=== PATIENT | female | born 1930 | race Caucasian/White ===

== ENCOUNTER 2017-04-26 13:48 | Emergency (ER) | payer OTHER, MEDICARE ==
[2017-04-26 14:01] VITALS: BMI 13.8
[2017-04-26 14:59] LABS: BASOPHIL 0.7 % (0-2.0); MCH 29.4 pg (25.7-33.7); MCHC 33.4 g/dl (32.0-36.0); MEAN CELL VOLUME 88.2 fl (80-96); MEAN PLT VOLUME 8.5 fl (7.5-11.1); NEUTROPHILS 59.6 % (42.8-82.8); PLATELET COUNT 243 K/MM3 (134-434); RDW 14.9 % (11.6-15.6); WHITE BLOOD COUNT 8.9 K/mm3 (4.0-10.0)
--- NOTE | 2017-04-26 15:17 | PDOC ---
History of Present Illness - General Chief Complaint: Shortness of Breath Stated Complaint: SOB Time Seen by Provider: 04/26/17 14:34 History Source: Patient Exam Limitations: No Limitations - History of Present Illness Initial Comments: 04/26/17 15:28 86 year old female with history of Parkinson's and dementia brought in by sister for evaluation of increased dyskinesia and complaining of mild dysphasia. Sister said patient had no change in her levodopa and has had no fever, change in appetite, or change in activity. Sr. also denies any difficulty breathing vomiting or complaints of chest pain. As per sister patient is incontinent but has had no change in urine pattern or foul odor. Timing/Duration: getting worse Severity: moderate Associated Symptoms: reports: other Past History - Travel Traveled outside of the country in the last 30 days: No - Past Medical History Allergies/Adverse Reactions: Allergies Allergy/AdvReac Type Severity Reaction Status Date / Time No Known Drug Allergies Allergy Verified 04/26/17 13:57 Home Medications: Ambulatory Orders Divalproex [Depakote -] 250 mg PO BID 08/18/15 Levothyroxine [Synthroid -] 50 mcg PO DAILY 08/18/15 Risperidone 0.5 mg PO HS 08/18/15 Sertraline HCl [Zoloft -] 100 mg PO DAILY 08/18/15 Carbidopa/Levodopa [Carbidopa-Levo 25-100 Tab] 2 each PO TID 10/31/15 Furosemide [Lasix -] 20 mg PO DAILY 10/31/15 Docusate Sodium [Colace -] 100 mg PO BID PRN #0 capsule 11/07/15 Lactobacillus Acidophilus [Bacid -] 1 tab PO BID #100 tab 11/07/15 Anemia: Yes Cardiac Disorders: Yes CHF: Yes Dementia: Yes GI Disorders: Yes Disorders: Yes (urinary incontinence) HTN: Yes Psychiatric Problems: Yes Suicide Attempt (Hx): No Seizures: Yes (MANIC DEPRESSION) Thyroid Disease: Yes - Surgical History Abdominal Surgery: Yes (PT DOESNT REMEMBER) Cholecystectomy: Yes - Immunization History Immunization Up to Date: Yes - Psycho/Social/Smoking Cessation Hx Anxiety: Yes Suicidal Ideation: No Smoking Status: No Smoking History: Former smoker Have you smoked in the past 12 months: No Number of Cigarettes Smoked Daily: 0 If you are a former smoker, when did you quit?: Over 40 years ago Information on smoking cessation initiated: No Hx Alcohol Use: No Drug/Substance Use Hx: No Substance Use Type: None Hx Substance Use Treatment: No Patient Lives Alone: No Lives with/in: sister Review of Systems - Review of Systems Able to Perform ROS?: Yes Constitutional: No: Symptoms Reported HEENTM: No: Symptoms Reported Respiratory: No: Symptoms reported Cardiac (ROS): No: Symptoms Reported ABD/GI: No: Symptoms Reported : No: Symptoms Reported Musculoskeletal: No: Symptoms Reported Integumentary: No: Symptoms Reported Neurological: No: Symptoms reported Psychiatric: Yes: Other Hematologic/Lymphatic: No: Symptoms Reported *Physical Exam - Vital Signs Last Vital Signs Temp Pulse Resp BP Pulse Ox 97.4 F L 60 19 107/43 96 04/26/17 13:58 04/26/17 13:58 04/26/17 13:58 04/26/17 13:58 04/26/17 13:58 - Physical Exam General Appearance: Yes: Nourished, Appropriately Dressed. No: Apparent Distress HEENT: positive: EOMI, CHRISTI, TMs Normal. negative: Pharynx Normal (dry) Neck: positive: Supple. negative: Tender, Decreased range of motion Respiratory/Chest: positive: Lungs Clear, Normal Breath Sounds. negative: Chest Tender, Respiratory Distress, Accessory Muscle Use Cardiovascular: positive: Regular Rhythm, Regular Rate. negative: Murmur Gastrointestinal/Abdominal: positive: Soft. negative: Tenderness Extremity: positive: Normal Capillary Refill, Normal Inspection, Normal Range of Motion Integumentary: positive: Bruising (to right temporal and auricular region. Pinna with small hematoma. No drainage or open lesions) Neurologic: positive: Alert, Motor Strength 5/5 (moving all extremeties actively ) Heart Score/ECG Review - History History: Slightly suspicious - Electrocardiogram EKG: Normal - Age Age: >/= 65 - Risk Factors Based on the list above the patient has:: No risk factors known - Troponin Troponin: </= normal limit - Score Heart Score - Total: 2 - ECG Intrepretation Rhythm: Regular Rhythm (rate 71 with left atrial enlargment Left ventricular hypertrophy is noted) ED Treatment Course - LABORATORY CBC & Chemistry Diagram: 04/26/17 14:40 04/26/17 14:40 - RADIOLOGY Radiology Studies Ordered: Category Date Time Status CERVICAL SPINE CT W/O CONTR [CT] Stat CT Scan 04/26/17 15:[address] WITHOUT CONTRAST [CT] Stat CT Scan 04/26/17 15:10 Ordered CHEST X-RAY PORTABLE* [RAD] Stat Radiology 04/26/17 14:40 Taken Medical Decision Making - Medical Decision Making 04/26/17 15:46 Patient brought in by sister for evaluation of increased dyskinesia, complaints of difficulty swallowing, and bruising to the right side of her head. Patient fell 3 days ago but did not seek medical attention. Patient has no complaints of headache, difficulty hearing, neck pain, dizziness or visual changes. Patient on exam was able to verbalize her needs and was oriented 3. Patient during exam with noted dyskinesia and erratic body language. Patient was ordered for labs, urine, chest x-ray, head and neck CT secondary to right facial injury 04/26/17 16:[address] shows generalized volume loss with moderate to marked ventricular dilatation moderate periventricular chronic microvascular ischemic changes. Which was compared to 2013. No mass lesion, gross acute infarct or intracranial hemorrhage identified. 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 Cervical CT shows no gross fracture or subluxation. Patient will be discharged home with sister as per her request. Patient has no other current concerns at this time. I explained to the sister to increase fluid intake and have patient follow-up with her neurologist 04/26/17 16:34 Laboratory Tests 04/26/17 04/26/17 04/26/17 14:15 14:40 14:40 WBC 8.9 Hgb 12.1 D Hct 36.1 Plt Count 243 D Neutrophils % 59.6 Sodium 140 Potassium 3.9 Chloride 105 Carbon Dioxide 25 Anion Gap 10 BUN 14 Creatinine 0.5 L D Creat Clearance w eGFR > 60 Random Glucose 93 Calcium 8.9 Total Bilirubin 0.5 D AST 17 D Creatine Kinase 72 Troponin I < 0.02 Urine Ketones Trace H Urine Nitrite Negative Ur Leukocyte Esterase Negative *DC/Admit/Observation/Transfer Diagnosis at time of Disposition: Parkinson disease - Discharge Dispostion Disposition: HOME Condition at time of disposition: Good - Referrals Referrals: Donald Banks MD [Primary Care Provider] - - Patient Instructions Printed Discharge Instructions: DI for Parkinson's Disease Additional Instructions: Please continue with her medications previously prescribed. Please follow-up with your neurologist and discuss today's visit. Increase patient's fliud intake also.
[2017-04-26 15:23] LABS: ALBUMIN 3.2 g/dl (3.4-5.0); ANION GAP 10 (8-16); BILIRUBIN,TOTAL 0.5 mg/dL (0.2-1.0); CALCIUM 8.9 mg/dL (8.5-10.1); CO2 25 mmol/L (21-32); CREATININE 0.5 mg/dL (0.55-1.02); GLUCOSE,RANDOM 93 mg/dL (74-106); SGPT/ALT 7 U/L (12-78)
--- NOTE | 2017-04-26 15:24 | PDOC ---
*Physical Exam - Vital Signs Last Vital Signs Temp Pulse Resp BP Pulse Ox 97.4 F L 60 19 107/43 96 04/26/17 13:58 04/26/17 13:58 04/26/17 13:58 04/26/17 13:58 04/26/17 13:58 ED Treatment Course - LABORATORY CBC & Chemistry Diagram: 04/26/17 14:40 04/26/17 14:40 - ADDITIONAL ORDERS Additional order review: 04/26/17 14:40 RBC 4.10 MCV 88.2 MCHC 33.4 RDW 14.9 MPV 8.5 D Neutrophils % 59.6 Lymphocytes % 29.6 D Monocytes % 7.1 Eosinophils % 3.0 D Basophils % 0.7 Medical Decision Making - Medical Decision Making 04/26/17 15:24 Pt seen by Midlevel Provider under my direct supervision Ancillary studies reviewed I agree with plan as outlined by Midlevel Provider *DC/Admit/Observation/Transfer Diagnosis at time of Disposition: Parkinson disease - Discharge Dispostion Disposition: HOME Condition at time of disposition: Good - Referrals Referrals: Donald Banks MD [Primary Care Provider] - - Patient Instructions Printed Discharge Instructions: DI for Parkinson's Disease Additional Instructions: Please continue with her medications previously prescribed. Please follow-up with your neurologist and discuss today's visit. Increase patient's fliud intake also.
[2017-04-26 15:25] LABS: URINE APPEARANCE CLEAR; URINE BILIRUBIN NEGATIVE (NEGATIVE); URINE BLOOD NEGATIVE (NEGATIVE); URINE COLOR YELLOW; URINE GLUCOSE (UA) NEGATIVE (NEGATIVE); URINE KETONE TRACE (NEGATIVE); URINE LEUK ESTERASE NEGATIVE (NEGATIVE); URINE NITRITE NEGATIVE (NEGATIVE); URINE PROTEIN NEGATIVE (NEGATIVE); URINE UROBILINOGEN NEGATIVE mg/dL (0.2-1.0)
[2017-04-26 15:25] LABS: ALK PHOS 85 U/L (45-117); TROPONIN I < 0.02 ng/ml (0.00-0.05)
[2017-04-26 15:26] LABS: CPK 72 IU/L (26-192); SGOT/AST 17 U/L (15-37)
[2017-04-26 16:45] VITALS: BP 124/80; PULSE 81; TEMP 98.6
--- NOTE | 2017-04-28 21:48 | EKG ---
Test Reason : Blood Pressure : / mmHG Vent. Rate : 071 BPM Atrial Rate : 071 BPM P-R Int : 170 ms QRS Dur : 090 ms QT Int : 424 ms P-R-T Axes : 021 -23 003 degrees QTc Int : 460 ms NORMAL SINUS RHYTHM POSSIBLE LEFT ATRIAL ENLARGEMENT RSR' OR QR PATTERN IN V1 SUGGESTS RIGHT VENTRICULAR CONDUCTION DELAY LEFT VENTRICULAR HYPERTROPHY ABNORMAL ECG WHEN COMPARED WITH ECG OF 04-NOV-2015 10:48, VENT. RATE HAS DECREASED BY 50 BPM RSR' PATTERN IN V1 IS NOW PRESENT Confirmed by YANELIS SINGH, VÍCTOR ([id number]) on 04/28/2017 9:48:19 PM Referred By: Confirmed By:VÍCTOR HILARIO MD
== END 2017-04-26 16:45 | disposition home or self-care (01) ==
LOC: JER 13:48
DX: G20 Parkinson's disease (principal); F02.80 Dementia in other diseases classified elsewhere, unspecified severity, without behavioral disturbance, psychotic disturbance, mood disturbance, and anxiety; I25.10 Atherosclerotic heart disease of native coronary artery without angina pectoris; I11.0 Hypertensive heart disease with heart failure; Z87.891 Personal history of nicotine dependence; D64.9 Anemia, unspecified; E03.9 Hypothyroidism, unspecified; R32 Unspecified urinary incontinence
CPT/HCPCS: 36415; 70450-TC; 71010-TC; 72125-TC; 80053; 81003; 84484; 85025; 87086; 93005; 93010; 99283-25

== ENCOUNTER 2017-07-26 13:25 | Inpatient (IN) | payer OTHER, MEDICARE ==
--- NOTE | 2017-07-26 14:25 | PDOC ---
History of Present Illness - General Chief Complaint: Rectal Bleed Stated Complaint: RECTAL BLEED Time Seen by Provider: 07/26/17 13:47 History Source: Patient Exam Limitations: No Limitations - History of Present Illness Initial Comments: This is an 86 YOF with h/o Parkinson's disease with dementia, chronic diarrhea, and hiatal hernia who presents with family c/o bryce bloody rectal bleeding. The patient herself is unable to provide her relevant medical history or symptoms d/t Parkinson's dementia. The family notes that for the past month she has had bloody-tinged diarrhea, but this morning when they changed her overnight adult diaper she had the diaper full of maroon blood which appeared coagulated. She has been eating no solids over the past month, and drinking only small amounts of fluid, with minimal intake of supplemental Boost drinks. Past History - Past Medical History Allergies/Adverse Reactions: Allergies Allergy/AdvReac Type Severity Reaction Status Date / Time No Known Drug Allergies Allergy Verified 07/26/17 13:41 Home Medications: Ambulatory Orders Divalproex [Depakote -] 250 mg PO BID 08/18/15 Levothyroxine [Synthroid -] 50 mcg PO DAILY 08/18/15 Risperidone 0.5 mg PO HS 08/18/15 Sertraline HCl [Zoloft -] 100 mg PO DAILY 08/18/15 Carbidopa/Levodopa [Carbidopa-Levo 25-100 Tab] 2 each PO TID 10/31/15 Furosemide [Lasix -] 20 mg PO DAILY 10/31/15 Docusate Sodium [Colace -] 100 mg PO BID PRN #0 capsule 11/07/15 Lactobacillus Acidophilus [Bacid -] 1 tab PO BID #100 tab 11/07/15 Anemia: Yes Cardiac Disorders: Yes CHF: Yes Dementia: Yes GI Disorders: Yes Disorders: Yes (urinary incontinence) HTN: Yes Psychiatric Problems: Yes Seizures: Yes (MANIC DEPRESSION) Thyroid Disease: Yes - Surgical History Abdominal Surgery: Yes (PT DOESNT REMEMBER) Cholecystectomy: Yes - Immunization History Immunization Up to Date: Yes - Suicide/Smoking/Psychosocial Hx Smoking Status: No Smoking History: Former smoker Have you smoked in the past 12 months: No Number of Cigarettes Smoked Daily: 0 If you are a former smoker, when did you quit?: Over 40 years ago Hx Alcohol Use: No Drug/Substance Use Hx: No Substance Use Type: None Hx Substance Use Treatment: No Review of Systems - Review of Systems Able to Perform ROS?: No (dementia) *Physical Exam - Physical Exam General Appearance: Yes: Moderate Distress (appears uncomfortable), Cachetic, Thin, Other (malnourished, chronically ill-appearing, very thin elderly woman accompanied at bedside by supportive-appearing family members, patient vocalized mostly moaning sounds but does answer yes/no to some questions) HEENT: positive: EOMI, Other (hearing decreased). negative: Scleral Icterus (R) , Scleral Icterus (L), Nasal Congestion Neck: positive: Trachea midline, Supple. negative: Tender, Rigid Respiratory/Chest: positive: Lungs Clear, Normal Breath Sounds. negative: Respiratory Distress, Crackles, Rhonchi, Stridor, Wheezing Cardiovascular: positive: Regular Rhythm, Regular Rate, Systolic Murmur. negative: Murmur Gastrointestinal/Abdominal: positive: Normal Bowel Sounds, Soft, Other (large bowel movement with melena in diaper). negative: Tender, Organomegaly, Pulsatile Mass, Guarding, Hernia Musculoskeletal: positive: Other (chronic diffuse muscle atrophy but moving all extremities). negative: Decreased Range of Motion, Vertebral Tenderness Extremity: positive: Normal Capillary Refill, Normal Inspection, Normal Range of Motion. negative: Tender, Cyanosis Integumentary: positive: Normal Color, Dry, Warm. negative: Erythema, Rash, Bruising Neurologic: positive: productivity engineer II-XII NML intact, Alert, Motor Strength 5/5. negative: Fully Oriented ED Treatment Course - LABORATORY CBC & Chemistry Diagram: 07/28/17 05:20 07/28/17 05:20 Medical Decision Making - Medical Decision Making 86 YOF with h/o Parkinson's with dementia and chronic diarrhea p/w rectal bleed. Also failure to thrive picture over the past 3-4 weeks with decreased PO intake. No focal area of tenderness on exam but apparent discomfort. Meets sepsis criteria and sepsis order set is initiated with basic labs, lactate , BCx, Mohr, UA, etc. Soft pressures; 1 liter IVF bolus given with improvement in skin tinting. Initial rectal temp is 94.7 and barehugger is donned with significant relief of patient's apparent discomfort. Rectal temp monitor placed for continuous monitoring. Vanc+Zosyn given for empiric coverage. Second 1 liter bolus warmed NS given PIV. 07/26/17 16:16 Significant lactic acidosis with pH 7.20 on ABG and lactate 10. 07/26/17 17:[address] Hansen's office (admits for Dr. Banks); message sent and awaiting call back. Spoke with Dr. Zaragoza who agrees with plan for admission with ICU consulting. 07/26/17 18:[address] Hansen's office on-call (Dr. Arroyo). 07/26/17 19:00 Minoo Cueva calls for patient's PCP group, requests hospitalist admission and she will see Pt in the AM. Microblogged [facility] to request admission. Patient's care signed out to Dr. Hair at end of my shift. *DC/Admit/Observation/Transfer Diagnosis at time of Disposition: UTI (urinary tract infection) Qualifiers: Urinary tract infection type: acute cystitis Hematuria presence: without hematuria Qualified Code(s): N30.00 - Acute cystitis without hematuria Sepsis Qualifiers: Sepsis type: sepsis due to unspecified organism Qualified Code(s): A41.9 - Sepsis, unspecified organism - Referrals - Patient Instructions - Post Discharge Activity
[2017-07-26] MEDS ORDERED: SODIUM CHLORIDE 1,000 ML IV STA (14:26)
[2017-07-26] MEDS ORDERED: SODIUM CHLORIDE 0.9% 1000 ML INFUS.BAG IV PRN (14:26)
--- NOTE | 2017-07-26 14:28 | PDOC ---
Attending Attestation - Resident Resident Name: KiannaJohnna - ED Attending Attestation I have performed the following: I have examined & evaluated the patient, The case was reviewed & discussed with the resident, I agree w/resident's findings & plan - HPI HPI: 07/26/17 14:25 86-year-old female with Parkinson's and chronic diarrhea presents with progressive bloody diarrhea today. She appears uncomfortable but is unable to express any specific pain. - Physicial Exam PE: 07/26/17 14:26 Patient appears acutely ill with tachypnea and a blood pressure of 98/83. She is not answering questions coherently, but she does attempt to communicate. She does not express any specific abdominal pain. Lungs are clear. Heart is regular rhythm. Abdomen is soft with mild fullness in the suprapubic region. There is no guarding and no rebound tenderness. Extremities are dry with skin tenting. - Critical Care Time Total Critical Care Time: 40 Critical Care Statement: The care of this patient involved high complexity decision making to prevent further life threatening deterioration of the patient 's condition and/or to evaluate & treat vital organ system(s) failure or risk of failure. - Medical Decision Making 07/26/17 14:27 Differential diagnosis includes sepsis of unknown source, possibly intra- abdominal. Other considerations include acute ischemic bowel, although patient does not appear to be expressing specific abdominal pain. Full workup including cultures, lactate, CT scan ordered. IV fluid bolus ordered. Further plans pending initial results.
[2017-07-26] MEDS ORDERED: VANCOMYCIN 1 GRAM (PRE-DOCKED) 1,000 MG/250 ML BAG IVPB ONE ×2 (14:43→15:15)
[2017-07-26] MEDS ORDERED: PIPERACILLIN/TAZOB 3.375 GM/50 ML PRE-DOCKED IVPB ONE (14:43)
[2017-07-26 14:59] LABS: VENOUS BLOOD GAS HCO3 17.6 meq/L (19-25); VENOUS PH 7.2 (7.32-7.42)
[2017-07-26 15:02] LABS: MCH 27.3 pg (25.7-33.7); MCHC 31.5 g/dl (32.0-36.0); MEAN CELL VOLUME 86.6 fl (80-96); MEAN PLT VOLUME 10.1 fl (7.5-11.1); RDW 16.1 % (11.6-15.6)
[2017-07-26] MEDS ORDERED: PIPERACILLIN/TAZOB 3.375 GM 3.375 GM/50 ML BAG IVPB ONE (15:15)
[2017-07-26 15:16] LABS: URINE APPEARANCE TURBID; URINE BILIRUBIN NEGATIVE (NEGATIVE); URINE BLOOD 1+ (NEGATIVE); URINE COLOR YELLOW; URINE GLUCOSE (UA) NEGATIVE (NEGATIVE); URINE KETONE NEGATIVE (NEGATIVE); URINE NITRITE NEGATIVE (NEGATIVE); URINE UROBILINOGEN NEGATIVE mg/dL (0.2-1.0)
[2017-07-26 15:26] LABS: ALBUMIN 2.5 g/dl (3.4-5.0); ANION GAP 25 (8-16); BILIRUBIN,TOTAL 0.7 mg/dL (0.2-1.0); CO2 20 mmol/L (21-32); CREATININE 2.9 mg/dL (0.55-1.02); GLUCOSE,RANDOM 152 mg/dL (74-106); SGOT/AST 23 U/L (15-37); SGPT/ALT 8 U/L (12-78); TOT PROT 6.1 g/dl (6.4-8.2)
[2017-07-26 15:29] LABS: ALK PHOS 144 U/L (45-117); CPK 53 IU/L (26-192); TROPONIN I 0.03 ng/ml (0.00-0.05)
[2017-07-26 15:45] LABS: INR 1.45 (0.82-1.09); PROTHROMBIN TIME (PATIENT) 16.4 SEC (9.98-11.88)
[2017-07-26 15:49] LABS: ARTERIAL BLD GAS O2 SATURATION 99.3 % (90-98.9); ARTERIAL BLOOD GAS BASE EXCESS -7.5 meq/l (-2-2); ARTERIAL BLOOD GAS HCO3 16.2 meq/L (22-26); ARTERIAL BLOOD GAS pH 7.37 (7.35-7.45)
[2017-07-26 15:50] LABS: ALLENS TEST POSITIVE; ART PUNCT SITE RIGHT RADIAL; PT. ON O2? YES; TYPE OF O2 NASAL O2 5 L
[2017-07-26] MEDS ORDERED: SODIUM CHLORIDE 0.9% 1000 ML INFUS.BAG IV ONE (15:59)
[2017-07-26 16:03] LABS: URINE PROTEIN 1+ (NEGATIVE)
[2017-07-26 16:16] LABS: URINE BACTERIA MANY /hpf (NONE SEEN); URINE HYALINE CAST 50 /lpf; URINE RBC 53 /hpf (0-3); URINE WBC 967 /hpf (3-5)
[2017-07-26] MEDS ORDERED: POTASSIUM CHLORIDE 20 MEQ PREMIX IVPB 100 ML IVPB ONE (16:37)
[2017-07-26] MEDS ORDERED: KCL 10 MEQ IVPB 20 MEQ/200 ML INFUS.BAG IVPB ONE (16:47)
--- NOTE | 2017-07-26 19:25 | PDOC ---
*Physical Exam - Vital Signs Last Vital Signs Temp Pulse Resp BP Pulse Ox 98.1 F 94 H 36 H 90/54 100 07/26/17 18:50 07/26/17 18:50 07/26/17 18:50 07/26/17 18:50 07/26/17 18:50 - Physical Exam Comments: 07/26/17 19:43 GENERAL: Awake, alert, and fully oriented, in no acute distress HEAD: No signs of trauma, normocephalic, atraumatic EYES: PERRLA, EOMI, sclera anicteric, conjunctiva clear ENT: Hearing grossly normal, nares patent, oropharynx clear without exudates. Moist mucosa NECK: Normal ROM, supple, no JVD, or masses LUNGS: No distress, speaks full sentences, clear to auscultation bilaterally HEART: Regular rate and rhythm, normal S1 and S2, no murmurs, rubs or gallops, peripheral pulses normal and equal bilaterally. ABDOMEN: Soft, nontender, normoactive bowel sounds. No guarding, no rebound. No masses EXTREMITIES : Normal inspection, Normal range of motion, no edema. No clubbing or cyanosis. SKIN: Warm, Dry, normal turgor, no rashes or lesions noted. ED Treatment Course - LABORATORY CBC & Chemistry Diagram: 07/26/17 14:50 07/26/17 14:50 - ADDITIONAL ORDERS Additional order review: Laboratory Results 07/26/17 07/26/17 07/26/17 17:22 15:32 14:50 PT with INR INR PTT (Actin FS) Puncture Site Right radial ABG pH 7.37 ABG pCO2 at Pt Temp 28.6 L ABG pO2 at Pt Temp 205.0 H* ABG HCO3 16.2 L ABG O2 Sat (Measured) 99.3 H ABG O2 Content 17.2 ABG Base Excess -7.5 L Ross Test Positive VBG pH POC VBG pCO2 POC VBG pO2 Mixed VBG HCO3 O2 Delivery Device Nasal o2 5 l Oxygen Flow Rate Yes Sodium Potassium Chloride Carbon Dioxide Anion Gap BUN Creatinine Creat Clearance w eGFR Random Glucose Lactic Acid 3.0 H* Calcium Total Bilirubin AST ALT Alkaline Phosphatase Creatine Kinase Troponin I B-Natriuretic Peptide Cancelled Total Protein Albumin Urine Color Urine Appearance Urine pH Ur Specific [place] Urine Protein Urine Glucose (UA) Urine Ketones Urine Blood Urine Nitrite Urine Bilirubin Urine Urobilinogen Urine WBC (Auto) Urine RBC (Auto) Urine Bacteria Hyaline Casts Blood Type Antibody Screen 07/26/17 07/26/17 07/26/17 14:50 14:50 14:50 PT with INR INR PTT (Actin FS) Puncture Site ABG pH ABG pCO2 at Pt Temp ABG pO2 at Pt Temp ABG HCO3 ABG O2 Sat (Measured) ABG O2 Content ABG Base Excess Ross Test VBG pH POC VBG pCO2 POC VBG pO2 Mixed VBG HCO3 O2 Delivery Device Oxygen Flow Rate Sodium 133 L Potassium 2.7 L* D Chloride 88 L D Carbon Dioxide 20 L Anion Gap 25 H BUN 91 H D Creatinine 2.9 H D Creat Clearance w eGFR 15.39 Random Glucose 152 H D Lactic Acid 10.0 H* Calcium 10.0 Total Bilirubin 0.7 D AST 23 D ALT 8 L Alkaline Phosphatase 144 H D Creatine Kinase 53 Troponin I 0.03 B-Natriuretic Peptide 7491.96 H Total Protein 6.1 L Albumin 2.5 L D Urine Color Urine Appearance Urine pH Ur Specific [place] Urine Protein Urine Glucose (UA) Urine Ketones Urine Blood Urine Nitrite Urine Bilirubin Urine Urobilinogen Urine WBC (Auto) Urine RBC (Auto) Urine Bacteria Hyaline Casts Blood Type A POSITIVE Antibody Screen Negative 07/26/17 07/26/17 07/26/17 14:50 14:26 14:26 PT with INR 16.40 H INR 1.45 H PTT (Actin FS) 44.0 H Puncture Site ABG pH ABG pCO2 at Pt Temp ABG pO2 at Pt Temp ABG HCO3 ABG O2 Sat (Measured) ABG O2 Content ABG Base Excess Ross Test VBG pH 7.20 L* POC VBG pCO2 46.7 POC VBG pO2 39.9 Mixed VBG HCO3 17.6 L O2 Delivery Device Oxygen Flow Rate Sodium Potassium Chloride Carbon Dioxide Anion Gap BUN Creatinine Creat Clearance w eGFR Random Glucose Lactic Acid Calcium Total Bilirubin AST ALT Alkaline Phosphatase Creatine Kinase Troponin I B-Natriuretic Peptide Total Protein Albumin Urine Color Yellow Urine Appearance Turbid Urine pH 5.0 Ur Specific [place] 1.013 Urine Protein 1+ H Urine Glucose (UA) Negative Urine Ketones Negative Urine Blood 1+ H Urine Nitrite Negative Urine Bilirubin Negative Urine Urobilinogen Negative Urine WBC (Auto) 967 Urine RBC (Auto) 53 Urine Bacteria Many Hyaline Casts 50 Blood Type Antibody Screen 07/26/17 14:50 RBC 5.53 H D MCV 86.6 MCHC 31.5 L RDW 16.1 H MPV 10.1 D Neutrophils % No Result Required. Lymphocytes % No Result Required. - Medications Given in the ED: ED Medications Discontinued Medications Generic Name Dose Route Start Last Admin Trade Name Freq PRN Reason Stop Dose Admin Sodium Chloride 1,000 mls @ 1,000 mls/hr 07/26/17 14:26 07/26/17 14:26 Normal Saline - IV 07/26/17 15:25 1,000 mls/hr ASDIR STA Administration Piperacillin Sod/Tazobactam Sod 3.375 gm 07/26/17 14:43 07/26/17 15:10 Zosyn 3.375gm Ivpb (Pre-Docked) IVPB 07/26/17 14:44 3.375 gm ONCE ONE Administration Potassium Chloride 20 meq 07/26/17 16:37 07/26/17 16:50 Potassium Chloride 20 Meq Premix Ivpb - IVPB 07/26/17 16:38 20 meq ONCE ONE Administration Sodium Chloride 1,000 ml 07/26/17 15:59 07/26/17 15:45 Normal Saline - IV 07/26/17 16:00 1,000 ml ONCE ONE Administration Vancomycin HCl 1,000 mg 07/26/17 14:43 07/26/17 15:50 Vancomycin (Pre-Docked) IVPB 07/26/17 14:44 1,000 mg ONCE ONE Administration Protocol Medical Decision Making - Medical Decision Making 07/26/17 19:[address] De La Cruz. 86 yo F with h/o Parkinson's dementia, and chronic diarrhea who arrives with blood per rectum and failure to thrive for the past 3-4 weeks. No apparent physical exam findings, but pt. hypotensive with SBP~70's on arrival and meets sepsis criteria with tachypnea and leukocytosis~51.0. Patient is s/p 4 Liters of fluid with SBP 90's. Initial rectal temp 94.7 and barehugger is donned with significant relief of patient's apparent discomfort.Rectal temp monitor placed for continuous monitoring. Vanc and Zosyn given for empiric coverage. ED course: ICU admision *DC/Admit/Observation/Transfer Diagnosis at time of Disposition: UTI (urinary tract infection) Qualifiers: Urinary tract infection type: acute cystitis Hematuria presence: without hematuria Qualified Code(s): N30.00 - Acute cystitis without hematuria Sepsis Qualifiers: Sepsis type: sepsis due to unspecified organism Qualified Code(s): A41.9 - Sepsis, unspecified organism - Discharge Dispostion Admit: Yes - Referrals Referrals: Donald Banks MD [Primary Care Provider] - - Patient Instructions - Post Discharge Activity
--- NOTE | 2017-07-26 20:14 | HP ---
CHIEF COMPLAINT: Blood in stool PCP: Donald Banks MD Source: Family, prior notes. Pt with significant baseline dementia. HISTORY OF PRESENT ILLNESS: 86 yo woman w/ pmh of CHF (diastolic), CAD, HTN, hypothyroidism and chronic intermittent diarrhea for prior two years, who presents with suspect hematochezia (maroon-colored stools) by family this AM found in her adult diapers and FTT for last month. Pt w/ baseline dementia/parkinson's suffering from increased, persistent diarrhea for past 6 weeks, with intermittent hematochezia/melena in stools over past month. Family endorses consistently poor feeding, decreased fluid intake over this period as well. No recent travel or abx use. Family denies any fever/chills, cough/sob, CP, palpitations, rashes , dysuria, constipation. She has not received work-up for this chronic diarrhea , but was scheduled for an outpt gastroenterology visit next week, given the worsening of symptoms. She is not currently on any anticoagulation. No recent hospitalizations. ER course was notable for: (1) Tachypnea (low 30s), Hypotensive (low of 70/48), hypothermic 94.9 on presentation (2) 4 L NS volume resuscitation. MAPs in low 60s after. (3) WBC 51, Lactate 10 -> 3.0 on admission (4) BNP 7400~ (5) K 2.7, BUN/Cr 91/2.9 (6) Vanc/Zosyn given Recent Travel: None PAST MEDICAL HISTORY: Hypothyroidism Parkinson's/dementia CAD HTN CHF (Diastolic) Seizure disorder Chronic Diarrhea Hiatal Hernia PAST SURGICAL HISTORY: Cholecystectomy Unspecified abdominal surgery Social History: Smoking: former smoker, 40 years ago Alcohol: Denies Drugs: No drug use Lives with sister. Receives care from family. Family History: Allergies No Known Drug Allergies Allergy (Verified 07/26/17 13:41) HOME MEDICATIONS: Home Medications Medication Instructions Recorded Divalproex [Depakote -] 250 mg PO BID 08/18/15 Levothyroxine [Synthroid -] 50 mcg PO DAILY 08/18/15 Risperidone 0.5 mg PO HS 08/18/15 Sertraline HCl [Zoloft -] 100 mg PO DAILY 08/18/15 Carbidopa/Levodopa [Carbidopa-Levo 2 each PO TID 02/29/16 25-100 Tab] Furosemide [Lasix -] 20 mg PO DAILY 10/31/15 Docusate Sodium [Colace -] 100 mg PO BID PRN #0 capsule 11/07/15 Lactobacillus Acidophilus [Bacid -] 1 tab PO BID #100 tab 11/07/15 REVIEW OF SYSTEMS CONSTITUTIONAL: Absent: fever, chills, diaphoresis, generalized weakness, malaise, loss of appetite, weight change HEENT: Absent: rhinorrhea, nasal congestion, throat pain, throat swelling, CARDIOVASCULAR: Absent: chest pain, syncope, palpitations, irregular heart rate, peripheral edema RESPIRATORY: Absent: cough, shortness of breath, dyspnea with exertion, orthopnea, wheezing, stridor, hemoptysis GASTROINTESTINAL: diarrhea, hematochezia Absent: abdominal pain, abdominal distension, nausea, vomiting, constipation, melena GENITOURINARY: Absent: dysuria, frequency, urgency, hesitancy, hematuria SKIN: Absent: rash, itching ENDOCRINE: Absent: unexplained weight gain, unexplained weight loss, heat intolerance, cold intolerance NEUROLOGIC: unsteady gait, bladder or bowel incontinence Absent: headache, focal weakness or paresthesias, dizziness, seizure, mental status changes PHYSICAL EXAMINATION Vital Signs - 24 hr 07/26/17 07/26/17 07/26/17 13:25 14:10 14:15 Temperature 94.9 F L Pulse Rate 85 Pulse Rate [ 85 Apical] Respiratory 34 H Rate Blood Pressure 98/51 Blood Pressure 124/65 [Left Arm] O2 Sat by Pulse 94 L 100 96 Oximetry (%) 07/26/17 07/26/17 07/26/17 14:45 15:15 16:03 Temperature 95.5 F L 95.5 F L Pulse Rate Pulse Rate [ 84 83 83 Apical] Respiratory 36 H 34 H 30 H Rate Blood Pressure Blood Pressure 128/68 118/64 103/59 [Left Arm] O2 Sat by Pulse 96 95 100 Oximetry (%) 07/26/17 07/26/17 07/26/17 16:45 17:08 17:31 Temperature 97.2 F L 97.9 F 98.6 F Pulse Rate Pulse Rate [ 86 92 H 95 H Apical] Respiratory 32 H 32 H 34 H Rate Blood Pressure Blood Pressure 70/48 81/54 99/57 [Left Arm] O2 Sat by Pulse 100 98 100 Oximetry (%) 07/26/17 07/26/17 18:00 18:50 Temperature 97.9 F 98.1 F Pulse Rate Pulse Rate [ 96 H 94 H Apical] Respiratory 28 H 36 H Rate Blood Pressure Blood Pressure 99/55 90/54 [Left Arm] O2 Sat by Pulse 100 100 Oximetry (%) GENERAL: Severely cachetic woman, elderly, in moderate distress. Delirious. HEAD: NCAT. Sunken cheeks. EYES: Pupils equal, round and reactive to light, extraocular movements intact, sclera anicteric, conjunctiva clear. No lid lag. EARS, NOSE, THROAT: Ears normal, nares patent, oropharynx clear without exudates. Moist mucous membranes. NECK: No JVD, masses or lymphadenopathy LUNGS: Decreased breath sounds at lung bases. No wheezes and no crackles. No accessory muscle use. HEART: Regular rate and rhythm, normal S1 and S2 without murmur, rub or gallop. ABDOMEN: Tender abdomen to palpation. Suprapubic fullness/mild tenderness to percussion. Non-distended, soft. No organomegaly. UPPER EXTREMITIES: 1+ pulses, warm, moperately-perfused. No cyanosis. No clubbing. No peripheral edema. LOWER EXTREMITIES: 2+ pulses, warm, well-perfused. No calf tenderness. No peripheral edema. NEUROLOGICAL: Delirious. Unable to perform adequate neuro exam. PSYCHIATRIC: Cooperative. Good eye contact. Appropriate mood and affect. SKIN: Poor skin turgor, skin tenting. Warm w/ slightly delayed capillary refill. Laboratory Results - last 24 hr CBC, BMP 07/26/17 14:50 07/26/17 14:50 07/26/17 07/26/17 07/26/17 14:26 14:26 14:50 WBC 51.0 H* D RBC 5.53 H D Hgb 15.1 D Hct 47.8 H D MCV 86.6 MCH 27.3 MCHC 31.5 L RDW 16.1 H Plt Count 309 D MPV 10.1 D Neutrophils % No Result Required. Lymphocytes % No Result Required. PT with INR INR PTT (Actin FS) Puncture Site ABG pH ABG pCO2 at Pt Temp ABG pO2 at Pt Temp ABG HCO3 ABG O2 Sat (Measured) ABG O2 Content ABG Base Excess Ross Test VBG pH 7.20 L* POC VBG pCO2 46.7 POC VBG pO2 39.9 Mixed VBG HCO3 17.6 L O2 Delivery Device Oxygen Flow Rate Sodium Potassium Chloride Carbon Dioxide Anion Gap BUN Creatinine Creat Clearance w eGFR Random Glucose Lactic Acid Calcium Total Bilirubin AST ALT Alkaline Phosphatase Creatine Kinase Troponin I B-Natriuretic Peptide Total Protein Albumin Urine Color Yellow Urine Appearance Turbid Urine pH 5.0 Ur Specific [place] 1.013 Urine Protein 1+ H Urine Glucose (UA) Negative Urine Ketones Negative Urine Blood 1+ H Urine Nitrite Negative Urine Bilirubin Negative Urine Urobilinogen Negative Urine WBC (Auto) 967 Urine RBC (Auto) 53 Urine Bacteria Many Hyaline Casts 50 Blood Type Antibody Screen 07/26/17 07/26/17 07/26/17 14:50 14:50 14:50 WBC RBC Hgb Hct MCV MCH MCHC RDW Plt Count MPV Neutrophils % Lymphocytes % PT with INR 16.40 H INR 1.45 H PTT (Actin FS) 44.0 H Puncture Site ABG pH ABG pCO2 at Pt Temp ABG pO2 at Pt Temp ABG HCO3 ABG O2 Sat (Measured) ABG O2 Content ABG Base Excess Ross Test VBG pH POC VBG pCO2 POC VBG pO2 Mixed VBG HCO3 O2 Delivery Device Oxygen Flow Rate Sodium 133 L Potassium 2.7 L* D Chloride 88 L D Carbon Dioxide 20 L Anion Gap 25 H BUN 91 H D Creatinine 2.9 H D Creat Clearance w eGFR 15.39 Random Glucose 152 H D Lactic Acid 10.0 H* Calcium 10.0 Total Bilirubin 0.7 D AST 23 D ALT 8 L Alkaline Phosphatase 144 H D Creatine Kinase 53 Troponin I 0.03 B-Natriuretic Peptide 7491.96 H Total Protein 6.1 L Albumin 2.5 L D Urine Color Urine Appearance Urine pH Ur Specific [place] Urine Protein Urine Glucose (UA) Urine Ketones Urine Blood Urine Nitrite Urine Bilirubin Urine Urobilinogen Urine WBC (Auto) Urine RBC (Auto) Urine Bacteria Hyaline Casts Blood Type Antibody Screen 07/26/17 07/26/17 07/26/17 14:50 14:50 15:32 WBC RBC Hgb Hct MCV MCH MCHC RDW Plt Count MPV Neutrophils % Lymphocytes % PT with INR INR PTT (Actin FS) Puncture Site Right radial ABG pH 7.37 ABG pCO2 at Pt Temp 28.6 L ABG pO2 at Pt Temp 205.0 H* ABG HCO3 16.2 L ABG O2 Sat (Measured) 99.3 H ABG O2 Content 17.2 ABG Base Excess -7.5 L Ross Test Positive VBG pH POC VBG pCO2 POC VBG pO2 Mixed VBG HCO3 O2 Delivery Device Nasal o2 5 l Oxygen Flow Rate Yes Sodium Potassium Chloride Carbon Dioxide Anion Gap BUN Creatinine Creat Clearance w eGFR Random Glucose Lactic Acid Calcium Total Bilirubin AST ALT Alkaline Phosphatase Creatine Kinase Troponin I B-Natriuretic Peptide Cancelled Total Protein Albumin Urine Color Urine Appearance Urine pH Ur Specific [place] Urine Protein Urine Glucose (UA) Urine Ketones Urine Blood Urine Nitrite Urine Bilirubin Urine Urobilinogen Urine WBC (Auto) Urine RBC (Auto) Urine Bacteria Hyaline Casts Blood Type A POSITIVE Antibody Screen Negative 07/26/17 17:22 WBC RBC Hgb Hct MCV MCH MCHC RDW Plt Count MPV Neutrophils % Lymphocytes % PT with INR INR PTT (Actin FS) Puncture Site ABG pH ABG pCO2 at Pt Temp ABG pO2 at Pt Temp ABG HCO3 ABG O2 Sat (Measured) ABG O2 Content ABG Base Excess Ross Test VBG pH POC VBG pCO2 POC VBG pO2 Mixed VBG HCO3 O2 Delivery Device Oxygen Flow Rate Sodium Potassium Chloride Carbon Dioxide Anion Gap BUN Creatinine Creat Clearance w eGFR Random Glucose Lactic Acid 3.0 H* Calcium Total Bilirubin AST ALT Alkaline Phosphatase Creatine Kinase Troponin I B-Natriuretic Peptide Total Protein Albumin Urine Color Urine Appearance Urine pH Ur Specific [place] Urine Protein Urine Glucose (UA) Urine Ketones Urine Blood Urine Nitrite Urine Bilirubin Urine Urobilinogen Urine WBC (Auto) Urine RBC (Auto) Urine Bacteria Hyaline Casts Blood Type Antibody Screen Urine, Blood cultures pending Recent imaging: CXR 07/26 - No evidence of consolidation, pleural effusion or vascular congestion CT-abdomen pending ASSESSMENT/PLAN: 86 yo woman w/ pmh of CHF (diastolic), CAD, HTN, hypothyroidism and chronic intermittent diarrhea for prior two years, who presents with suspected hematochezia and persistent chronic diarrhea of 6 weeks, found to be hypotensive /hypothermic requiring aggressive fluid resuscitation, along w/ a markedly elevated WBC (51) and lactate of 10. #Sepsis secondary to gastroenteritis vs. UTI - Abdominal/pelvic CT scan - f/u blood cultures, urine cultures - Vanc/zosyn empirically - stool O+P, culture - C diff antigen - Consider gastroenteritis panel (salmonella, shigella etc...) #UTI - Hx of recurrent UTI. Suprapubic tenderness/fullness on exam. UA + 2+ leuk esterase - Monitor for symptoms of dysuria - f/u urine cultures #CHF (diastolic) - BNP 7500~ this admission - ECHO while inpt - f/u w/ outpt cardiology - Continue home Lasix 20mg PO #Hematochezia - - Monitor for melena/hematochezia during diaper changes - Trend H/H. Transfuse at <7 - Stool guiac #Elevated lactate - 10 on admission -> 3.0 -> 3.3 07/26 PM - Trend lactate. F/u AM lactate - Aggresive IVFs for volume resuscitation #Hypokalemia - 2.7 -> 2.6 07/26 PM - Repleted K. F/u BMP in AM. - Daily BMPs #Hypothyroidism - F/u TSH - Consider restarting home levo if TSH elevated #Parkinson's - Continue home cinemet #Depression - Continue home sertraline #Unspecified psych condition - Hold risperdol, depakote for now. Confirm home psych meds with PCP in AM FEN: Fluids: 100cc NS Electrolytes: Daily BMPs, replete electrolytes as needed. Nutrition: NPO Dispo: Admit to ICU for further monitoring. Code status: DNR/DNI Plan discussed with attending, Dr. Yessi Leahy, PGY1 Problem List - Problem (1) Sepsis Code(s): A41.9 - SEPSIS, UNSPECIFIED ORGANISM Qualifiers: Sepsis type: sepsis due to unspecified organism Qualified Code(s): A41.9 - Sepsis, unspecified organism (2) UTI (urinary tract infection) Code(s): N39.0 - URINARY TRACT INFECTION, SITE NOT SPECIFIED Qualifiers: Urinary tract infection type: acute cystitis Hematuria presence: without hematuria Qualified Code(s): N30.00 - Acute cystitis without hematuria (3) Chronic diarrhea Code(s): K52.9 - NONINFECTIVE GASTROENTERITIS AND COLITIS, UNSPECIFIED Visit type - Emergency Visit Emergency Visit: Yes ED Registration Date: 07/26/17 Care time: The patient presented to the Emergency Department on the above date and was hospitalized for further evaluation of their emergent condition. - New Patient This patient is new to me today: Yes Date on this admission: 07/27/17 - Critical Care Critical Care patient: Yes Total Critical Care Time (in minutes): 35 Critical Care Statement: The care of this patient involved high complexity decision making to prevent further life threatening deterioration of the patient 's condition and/or to evaluate & treat vital organ system(s) failure or risk of failure.
[2017-07-26 20:22] LABS: TOTAL CELLS COUNTED 100
[2017-07-26 20:23] LABS: REACTIVE LYMPHOCYTES 2 % (0-80)
[2017-07-26 20:25] LABS: PLATELET COMMENTS SLT PLT CLUMPING; PLATELET ESTIMATE ADEQUATE
[2017-07-26 22:51] VITALS: BMI 15.2
[2017-07-26 22:51] LABS: URINE LEUK ESTERASE 2+ (NEGATIVE)
--- NOTE | 2017-07-26 23:02 | CONSULT ---
Consult - text type - Consultation Consultation Note: Pulm/CCM Pt seen and examined in ICU CC: failure to thrive, sepsis HPI: Ms Waller is an 86 y/o woman with h/o Parkinson's disease/dementia, chronic diarrhea, and hiatal hernia who has been in declining health for some time now admitted for sepsis and hematochezia . Pt is debilitated, had not been extremely poor PO intake and unintentional weight loss. According to family pt has had chronic loose stool but in last 24hr has had blood tinged diarrhea which became bryce maroon blood. She is unable to relate any symptoms or localize any complaint. Family sent pt to ED for evaluation. In ED pt was hypothermic, hypotensive, tachycardic and tachpneic. Labs notable for WBC 51, K 2.7, BUN/Cr 91/2.9, Cl 88, Hco3 20 Lactate 10. UA w/ >180WBC and 2+ LE. She received broad spectrum abx, 2L IVF, and placed on marissa hugger. GOC was discussed with family--> DNR/DNI, no aggressive measure, ok with fluid and antibiotics and other supportive care. Transferred to ICU for further management. Past Medical History [employer] Parkinson's,Seizure Cardio/Vascular CAD,CHF,HTN Gastrointestinal Other Endocrine Hypothyroidism Smoking History Smoking history Former smoker Aproximately how many 0 cigarettes per day If you are a former smoker, Over 40 years ago when did you quit? Alcohol/Substance Use Hx Alcohol Use No History of Substance Use None Social History Usual Living Arrangement With Significant Other History of Recent Travel No CBCD WBC 51.0 K/mm3 (4.0-10.0) H* D 07/26/17 14:50 RBC 5.53 M/mm3 (3.60-5.2) H D 07/26/17 14:50 Hgb 15.1 GM/dL (10.7-15.3) D 07/26/17 14:50 Hct 47.8 % (32.4-45.2) H D 07/26/17 14:50 MCV 86.6 fl (80-96) 07/26/17 14:50 MCHC 31.5 g/dl (32.0-36.0) L 07/26/17 14:50 RDW 16.1 % (11.6-15.6) H 07/26/17 14:50 Plt Count K/MM3 (134-434) 07/26/17 14:50 MPV 10.1 fl (7.5-11.1) D 07/26/17 14:50 CMP Sodium 133 mmol/L (136-145) L 07/26/17 14:50 Potassium 2.7 mmol/L (3.5-5.1) L* D 07/26/17 14:50 Chloride 88 mmol/L (98-107) L D 07/26/17 14:50 Carbon Dioxide 20 mmol/L (21-32) L 07/26/17 14:50 Anion Gap 25 (8-16) H 07/26/17 14:50 BUN 91 mg/dL (7-18) H D 07/26/17 14:50 Creatinine 2.9 mg/dL (0.55-1.02) H D 07/26/17 14:50 Creat Clearance w eGFR 15.39 (>60) 07/26/17 14:50 Calcium 10.0 mg/dL (8.5-10.1) 07/26/17 14:50 Total Bilirubin 0.7 mg/dL (0.2-1.0) D 07/26/17 14:50 AST 23 U/L (15-37) D 07/26/17 14:50 ALT 8 U/L (12-78) L 07/26/17 14:50 Alkaline Phosphatase 144 U/L (45-117) H D 07/26/17 14:50 Total Protein 6.1 g/dl (6.4-8.2) L 07/26/17 14:50 Albumin 2.5 g/dl (3.4-5.0) L D 07/26/17 14:50 Urine Test Results Urine Color Yellow 07/26/17 14:26 Urine Appearance Turbid 07/26/17 14:26 Urine pH 5.0 (5.0-8.0) 07/26/17 14:26 Ur Specific [place] 1.013 (1.001-1.035) 07/26/17 14:26 Urine Protein 1+ (NEGATIVE) H 07/26/17 14:26 Urine Glucose (UA) Negative (NEGATIVE) 07/26/17 14:26 Urine Ketones Negative (NEGATIVE) 07/26/17 14:26 Urine Blood 1+ (NEGATIVE) H 07/26/17 14:26 Urine Nitrite Negative (NEGATIVE) 07/26/17 14:26 Urine Bilirubin Negative (NEGATIVE) 07/26/17 14:26 Ur Leukocyte Esterase 2+ (NEGATIVE) H 07/26/17 14:26 Urine Bacteria Many /hpf (NONE SEEN) 07/26/17 14:26 Home Medications Medication Instructions Recorded Divalproex [Depakote -] 250 mg PO BID 08/18/15 Levothyroxine [Synthroid -] 50 mcg PO DAILY 08/18/15 Risperidone 0.5 mg PO HS 08/18/15 Sertraline HCl [Zoloft -] 100 mg PO DAILY 08/18/15 Carbidopa/Levodopa [Carbidopa-Levo 2 each PO TID 10/31/15 25-100 Tab] Furosemide [Lasix -] 20 mg PO DAILY 10/31/15 Docusate Sodium [Colace -] 100 mg PO BID PRN #0 capsule 11/07/15 Lactobacillus Acidophilus [Bacid -] 1 tab PO BID #100 tab 11/07/15 Active Medications Chlorhexidine Gluconate (Hibiclens For Decolonization -) 1 applic TP HS MISTI Mupirocin (Bactroban Ointment (For Decolonization) -) 1 applic NS BID MISTI Stop: 07/31/17 21:59 Sodium Chloride (Normal Saline -) 1,000 ml IV Q20M PRN PRN Reason: MAP<65mm Hg OR SBP <90 PE: Gen; cachetic, eld woman, in mild distress, calls out with any attemt to examine PULM: clear anterior, no distress CV; irreg, tachy, III/ BUSHRA ABD: soft, ND, hypoactive. BS EXT: no edema, very thin, fail Neuro: agitated, altered, non focal A/ Severe sepsis, AMS (acute on chronic) WILBERT leukocytosis P/ -Pip/Nghia -Vanco -IV fluid -electrolyte repletion (K given in ED) -normal transfusion threshold -report of melonic stool ,cont monitor Meek Sánchez [facility] [id number]
[2017-07-26] MEDS: MUPIROCIN 2% TOPICAL OINTMENT FOR DECOLONIZATION NS SCH (23:06)
[2017-07-26] MEDS: CHLORHEXIDINE GLUCONATE 4% CLEANSER FOR DECOLONIZATION TP SCH (23:06)
--- NOTE | 2017-07-26 23:23 | PN ---
Teaching Attending Note Name of Resident: Isaiah Leahy ATTENDING PHYSICIAN STATEMENT I saw and evaluated the patient. I reviewed the resident's note and discussed the case with the resident. I agree with the resident's findings and plan as documented. SUBJECTIVE: OBJECTIVE: ASSESSMENT AND PLAN: this is an 86 y/o frail women, who presented to the hospital with failure to thrive and worsening mental status. patient family stated that for the past 2 wks the patient hasn't been eating properly, feeling week, and soiling herself. patient has moderate cognitive impairment, ?parkinsons, and hypothyrodisim plan: - admit the patient to the ICU - IVF hydration - check thyroid function - keep the patient NPO - if the thyroid function is decrease then IV levothyroixne - c/w IV antibiotics - repeat CBC - trend lactate until level is < 2.0 - patient is DNR/DNI - speech and swallow assessment for the patient after the patient mental status improves. - urine analysis CT scan of the abdomen
[2017-07-27 00:14] LABS: BASOPHIL 0.2 % (0-2.0); MCH 27.6 pg (25.7-33.7); MCHC 31.9 g/dl (32.0-36.0); MEAN CELL VOLUME 86.7 fl (80-96); NEUTROPHILS 90.5 % (42.8-82.8); PLATELET COUNT 230 K/MM3 (134-434); RDW 16.1 % (11.6-15.6)
[2017-07-27 00:34] LABS: PHOSPHOROUS 2.8 mg/dL (2.5-4.9); WHITE BLOOD COUNT 41.4 K/mm3 (4.0-10.0)
[2017-07-27] MEDS: POTASSIUM CHLORIDE 20 MEQ PREMIX IVPB 100 ML IVPB SCH (06:29)
[2017-07-27 06:34] LABS: MCH 27.8 pg (25.7-33.7); MCHC 32.5 g/dl (32.0-36.0); MEAN CELL VOLUME 85.6 fl (80-96); MEAN PLT VOLUME 10.3 fl (7.5-11.1); PLATELET COUNT 220 K/MM3 (134-434); RDW 16.1 % (11.6-15.6)
[2017-07-27] MEDS: D5-1/2NS+20 MEQ KCL - 20 MEQ/1,000 ML INFUS.BAG IV SCH (06:35)
[2017-07-27 06:43] LABS: ANION GAP 13 (8-16); CALCIUM 7.4 mg/dL (8.5-10.1); CO2 16 mmol/L (21-32); CREATININE 1.6 mg/dL (0.55-1.02); GLUCOSE,RANDOM 101 mg/dL (74-106); MAGNESIUM 1.9 mg/dL (1.8-2.4); PHOSPHOROUS 2.5 mg/dL (2.5-4.9)
[2017-07-27 06:52] LABS: INR 1.36 (0.82-1.09); PROTHROMBIN TIME (PATIENT) 15.4 SEC (9.98-11.88)
[2017-07-27 06:57] LABS: WHITE BLOOD COUNT 39.7 K/mm3 (4.0-10.0)
--- NOTE | 2017-07-27 08:16 | PN ---
Progress Note, Physician Chief Complaint: ID Unable to offer any history NAD Just yells when you attempt to examine her - Current Medication List Current Medications: Active Medications Chlorhexidine Gluconate (Hibiclens For Decolonization -) 1 applic TP HS [facility] Last Admin: 07/26/17 23:06 Dose: 1 applic Potassium Chloride/Dextrose/Sod Cl (D5-1/2ns+20 Meq Kcl -) 20 meq in 1,000 mls @ 83 mls/hr IV ASDIR MISTI Last Admin: 07/27/17 06:35 Dose: 83 mls/hr Mupirocin (Bactroban Ointment (For Decolonization) -) 1 applic NS BID MISTI Stop: 07/31/17 21:59 Last Admin: 07/26/17 23:06 Dose: 1 applic Sodium Chloride (Normal Saline -) 1,000 ml IV Q20M PRN PRN Reason: MAP<65mm Hg OR SBP <90 - Objective Vital Signs: Vital Signs Temperature 98.7 F 07/27/17 06:00 Pulse Rate 97 H 07/27/17 06:00 Respiratory Rate 26 H 07/27/17 06:00 Blood Pressure 95/54 07/27/17 06:00 O2 Sat by Pulse Oximetry (%) 100 07/26/17 22:36 Constitutional: Yes: Thin Neck: Yes: WNL, Supple Cardiovascular: Yes: Regular Rate and Rhythm, Murmur, S1, S2 Respiratory: Yes: WNL, Regular, CTA Bilaterally Gastrointestinal: Yes: Soft. No: Tenderness Edema: No Labs: CBC, BMP 07/27/17 05:05 07/27/17 05:05 INR, PTT INR 1.36 (0.82-1.09) H 07/27/17 05:05 Problem List - Problems (1) Sepsis Code(s): A41.9 - SEPSIS, UNSPECIFIED ORGANISM Qualifiers: Sepsis type: sepsis due to unspecified organism Qualified Code(s): A41.9 - Sepsis, unspecified organism (2) UTI (urinary tract infection) Code(s): N39.0 - URINARY TRACT INFECTION, SITE NOT SPECIFIED Qualifiers: Urinary tract infection type: acute cystitis Hematuria presence: without hematuria Qualified Code(s): N30.00 - Acute cystitis without hematuria (3) Acute renal failure Code(s): N17.9 - ACUTE KIDNEY FAILURE, UNSPECIFIED Qualifiers: Acute renal failure type: unspecified Qualified Code(s): N17.9 - Acute kidney failure, unspecified Assessment/Plan Microbiology 10/31/15 10:45 Urine - Urine Mohr Urine Culture - Final Citrobacter Freundii Complex Enterococcus Faecalis Laboratory Tests 07/26/17 07/26/17 07/26/17 14:26 14:50 15:32 WBC 51.0 H* D Hgb 15.1 D Plt Count Neutrophils % (Manual) 76.0 Band Neutrophils % 6.0 Lymphocytes % (Manual) 10.0 Monocytes % (Manual) 6 INR ABG pH 7.37 ABG pCO2 at Pt Temp 28.6 L ABG pO2 at Pt Temp 205.0 H* Potassium BUN Creatinine Lactic Acid Ur Leukocyte Esterase 2+ H Urine WBC (Auto) 967 07/26/17 07/26/17 07/26/17 23:00 23:30 23:30 WBC Hgb Plt Count 230 Neutrophils % (Manual) Band Neutrophils % Lymphocytes % (Manual) Monocytes % (Manual) INR ABG pH ABG pCO2 at Pt Temp ABG pO2 at Pt Temp Potassium 2.6 L* BUN Creatinine Lactic Acid 3.3 H* Ur Leukocyte Esterase Urine WBC (Auto) 07/27/17 07/27/17 07/27/17 05:05 05:05 05:05 WBC Hgb Plt Count Neutrophils % (Manual) Band Neutrophils % Lymphocytes % (Manual) Monocytes % (Manual) INR 1.36 H ABG pH ABG pCO2 at Pt Temp ABG pO2 at Pt Temp Potassium BUN 68 H D Creatinine 1.6 H D Lactic Acid 2.7 H* Ur Leukocyte Esterase Urine WBC (Auto) Assessment Sepsis syndrome Urinary tract infection Positive blood culture gram pending Rectal bleeding Acute renal failure Plan Obtain vancom level Continue Zosyn 2.25gr q6H IVF Await blood culture final oscarien c/s Philly SINGH
--- NOTE | 2017-07-27 08:53 | CONS ---
DATE OF CONSULTATION: DATE OF DICTATION: 07/27/2017 INFECTIOUS DISEASE CONSULTATION HISTORY OF PRESENT ILLNESS: This is an 86-year-old female with profound dementia, whom I am asked to see for evaluation of sepsis syndrome in the ICU. This 86-year-old female has a history of both Parkinson disease along with dementia, chronic diarrhea, and has been in declining health at the alf. She is admitted now because of hematochezia, poor oral intake and progressive weight loss. The family notes chronic loose stools, but over the last 24 hours she has had blood tinged diarrhea with bryce maroon stools. She is unable to offer any history whatsoever and becomes agitated when moving her to examine her in bed. In the emergency room, she was noted to be hypothermic, hypothyroidism, tachycardic, and tachypneic. Her labs were notable for a white count of 51,000, with a potassium of 2.7, BUN of 91, creatinine of 2.9, lactic acid of 10, and urinalysis with many white cells. Broad-spectrum antibiotics were administered, and I am asked to see her now regarding further antibiotic management. The micro lab reports a preliminary blood culture in an anaerobic bottle coming up as positive, with no identification or Gram stain as yet. PAST MEDICAL HISTORY: Parkinson disease, seizure disorder, dementia, coronary artery disease, CHF, hypertension, hypothyroidism. SOCIAL HISTORY: Former smoker. No history of substance abuse. FAMILY HISTORY: Currently unobtainable. REVIEW OF SYSTEMS: Respiratory: Tachypnea. No cough. Cardiac: No history of chest pain, palpitations or syncope. Gastrointestinal: Hematochezia. Blood-tinged diarrhea. No abdominal pain. Genitourinary: Pyuria on the UA. Unable to obtain any urinary complaints. PHYSICAL EXAMINATION: General: She was a thin, cachectic-appearing, elderly woman in no acute distress. Vital Signs: Temperature now 98.7, pulse 97, blood pressure 95/54, respirations 26. O2 saturation 100% on 2 L nasal cannula. Neck: Supple, without adenopathy. Lungs: Clear to percussion and auscultation. Heart: S1, S2, with a grade 2/6 to 3/6 systolic ejection murmur noted. Abdomen: Positive bowel sounds, although hypoactive, soft, not distended. No organomegaly. No palpable mass. Extremities: No clubbing, cyanosis or edema. DIAGNOSTIC STUDIES: White count 39.7, hemoglobin 12.5, platelets 220. INR 1.36. AB.37, 29, 205, on 2 L nasal cannula. Potassium 2.6, BUN 91, creatinine 2.9, lactic acid 3. Alkaline phosphatase 144, AST 123. Urinalysis with many bacteria, 1000 white cells, 2+ leukocyte esterase, 53 RBCs. Chest x-ray with no acute infiltrate seen. ASSESSMENT: An 86-year-old female with: 1. Sepsis syndrome. 2. Sepsis syndrome secondary to urinary tract infection. 3. History of gastrointestinal bleeding. 4. Leukemoid reaction in part from bleeding as well as sepsis syndrome. 5. Dementia. PLAN: Blood and urine cultures pending. Await final blood culture reports regarding positive blood culture. Obtain a vancomycin level now, without any idea as to the need to continue this at this time. We will give her Zosyn adjusted for creatinine clearance. Stool sent for C diff toxin Critical care time spent 40 mintutes [place] WATERS M.D. [id number] MTDD
[2017-07-27] MEDS ORDERED: PT OWN MED DRAWER 7, Y5N ONE (09:16)
[2017-07-27] MEDS: MUPIROCIN 2% TOPICAL OINTMENT FOR DECOLONIZATION NS SCH ×2 (09:25→22:13)
--- NOTE | 2017-07-27 09:27 | PN ---
Progress Note (short form) - Note Progress Note: Patient seen and examined in the ICU. Confused and lethargic. Mumbles. No pressors. Intake & Output 07/24/17 07/25/17 07/26/17 07/27/17 23:59 23:59 23:59 23:59 Intake Total 200 40 Output Total 540 1100 Balance -340 -1060 Weight 80 lb 11.2 oz 82 lb 1.6 oz Last Vital Signs Temp Pulse Resp BP Pulse Ox 98.7 F 97 H 26 H 104/73 95 07/27/17 06:00 07/27/17 08:00 07/27/17 08:26 07/27/17 08:00 07/27/17 08:26 Active Medications Chlorhexidine Gluconate (Hibiclens For Decolonization -) 1 applic TP HS MISTI Last Admin: 07/26/17 23:06 Dose: 1 applic Potassium Chloride/Dextrose/Sod Cl (D5-1/2ns+20 Meq Kcl -) 20 meq in 1,000 mls @ 83 mls/hr IV ASDIR MISTI Last Admin: 07/27/17 06:35 Dose: 83 mls/hr Piperacillin Sod/Tazobactam (Sod 2.25 gm/ Dextrose) 50 mls @ 100 mls/hr IVPB Q6H-IV MISTI PRN Reason: Protocol Mupirocin (Bactroban Ointment (For Decolonization) -) 1 applic NS BID MISTI Stop: 07/31/17 21:59 Last Admin: 07/26/17 23:06 Dose: 1 applic Sodium Chloride (Normal Saline -) 1,000 ml IV Q20M PRN PRN Reason: MAP<65mm Hg OR SBP <90 PE: Gen; cachetic, elderly woman, NAD PULM: clear anterior, no distress CV; irregular, tachy, III/ BUSHRA ABD: soft, ND, (+) BS EXT: no edema, very thin, fail Neuro: agitated, altered, non focal Laboratory Results - last 24 hr 07/26/17 07/26/17 07/26/17 14:26 14:26 14:50 WBC 51.0 H* D RBC 5.53 H D Hgb 15.1 D Hct 47.8 H D MCV 86.6 MCH 27.3 MCHC 31.5 L RDW 16.1 H Plt Count MPV 10.1 D Total Counted 100 Neutrophils % No Result Required. Neutrophils % (Manual) 76.0 Band Neutrophils % 6.0 Lymphocytes % No Result Required. Lymphocytes % (Manual) 10.0 Monocytes % Monocytes % (Manual) 6 Eosinophils % Basophils % Platelet Estimate Adequate Platelet Comment Slt plt clumping PT with INR INR PTT (Actin FS) Puncture Site ABG pH ABG pCO2 at Pt Temp ABG pO2 at Pt Temp ABG HCO3 ABG O2 Sat (Measured) ABG O2 Content ABG Base Excess Ross Test VBG pH 7.20 L* POC VBG pCO2 46.7 POC VBG pO2 39.9 Mixed VBG HCO3 17.6 L O2 Delivery Device Oxygen Flow Rate Sodium Potassium Chloride Carbon Dioxide Anion Gap BUN Creatinine Creat Clearance w eGFR Random Glucose Lactic Acid Calcium Phosphorus Magnesium Total Bilirubin AST ALT Alkaline Phosphatase Creatine Kinase Troponin I B-Natriuretic Peptide Total Protein Albumin TSH Urine Color Yellow Urine Appearance Turbid Urine pH 5.0 Ur Specific [place] 1.013 Urine Protein 1+ H Urine Glucose (UA) Negative Urine Ketones Negative Urine Blood 1+ H Urine Nitrite Negative Urine Bilirubin Negative Urine Urobilinogen Negative Ur Leukocyte Esterase 2+ H Urine WBC (Auto) 967 Urine RBC (Auto) 53 Urine Bacteria Many Hyaline Casts 50 Random Vancomycin Blood Type Antibody Screen 07/26/17 07/26/17 07/26/17 14:50 14:50 14:50 WBC RBC Hgb Hct MCV MCH MCHC RDW Plt Count MPV Total Counted Neutrophils % Neutrophils % (Manual) Band Neutrophils % Lymphocytes % Lymphocytes % (Manual) Monocytes % Monocytes % (Manual) Eosinophils % Basophils % Platelet Estimate Platelet Comment PT with INR 16.40 H INR 1.45 H PTT (Actin FS) 44.0 H Puncture Site ABG pH ABG pCO2 at Pt Temp ABG pO2 at Pt Temp ABG HCO3 ABG O2 Sat (Measured) ABG O2 Content ABG Base Excess Ross Test VBG pH POC VBG pCO2 POC VBG pO2 Mixed VBG HCO3 O2 Delivery Device Oxygen Flow Rate Sodium 133 L Potassium 2.7 L* D Chloride 88 L D Carbon Dioxide 20 L Anion Gap 25 H BUN 91 H D Creatinine 2.9 H D Creat Clearance w eGFR 15.39 Random Glucose 152 H D Lactic Acid 10.0 H* Calcium 10.0 Phosphorus Magnesium Total Bilirubin 0.7 D AST 23 D ALT 8 L Alkaline Phosphatase 144 H D Creatine Kinase 53 Troponin I 0.03 B-Natriuretic Peptide 7491.96 H Total Protein 6.1 L Albumin 2.5 L D TSH Urine Color Urine Appearance Urine pH Ur Specific [place] Urine Protein Urine Glucose (UA) Urine Ketones Urine Blood Urine Nitrite Urine Bilirubin Urine Urobilinogen Ur Leukocyte Esterase Urine WBC (Auto) Urine RBC (Auto) Urine Bacteria Hyaline Casts Random Vancomycin Blood Type Antibody Screen 07/26/17 07/26/17 07/26/17 14:50 14:50 15:32 WBC RBC Hgb Hct MCV MCH MCHC RDW Plt Count MPV Total Counted Neutrophils % Neutrophils % (Manual) Band Neutrophils % Lymphocytes % Lymphocytes % (Manual) Monocytes % Monocytes % (Manual) Eosinophils % Basophils % Platelet Estimate Platelet Comment PT with INR INR PTT (Actin FS) Puncture Site Right radial ABG pH 7.37 ABG pCO2 at Pt Temp 28.6 L ABG pO2 at Pt Temp 205.0 H* ABG HCO3 16.2 L ABG O2 Sat (Measured) 99.3 H ABG O2 Content 17.2 ABG Base Excess -7.5 L Ross Test Positive VBG pH POC VBG pCO2 POC VBG pO2 Mixed VBG HCO3 O2 Delivery Device Nasal o2 5 l Oxygen Flow Rate Yes Sodium Potassium Chloride Carbon Dioxide Anion Gap BUN Creatinine Creat Clearance w eGFR Random Glucose Lactic Acid Calcium Phosphorus Magnesium Total Bilirubin AST ALT Alkaline Phosphatase Creatine Kinase Troponin I B-Natriuretic Peptide Cancelled Total Protein Albumin TSH Urine Color Urine Appearance Urine pH Ur Specific [place] Urine Protein Urine Glucose (UA) Urine Ketones Urine Blood Urine Nitrite Urine Bilirubin Urine Urobilinogen Ur Leukocyte Esterase Urine WBC (Auto) Urine RBC (Auto) Urine Bacteria Hyaline Casts Random Vancomycin Blood Type A POSITIVE Antibody Screen Negative 07/26/17 07/26/17 07/26/17 17:22 23:00 23:30 WBC 41.4 H* RBC 4.79 Hgb 13.2 D Hct 41.5 MCV 86.7 MCH 27.6 MCHC 31.9 L RDW 16.1 H Plt Count 230 MPV 10.0 Total Counted Neutrophils % 90.5 H D Neutrophils % (Manual) Band Neutrophils % Lymphocytes % 7.2 L D Lymphocytes % (Manual) Monocytes % 2.1 L Monocytes % (Manual) Eosinophils % 0.0 D Basophils % 0.2 Platelet Estimate Platelet Comment PT with INR INR PTT (Actin FS) Puncture Site ABG pH ABG pCO2 at Pt Temp ABG pO2 at Pt Temp ABG HCO3 ABG O2 Sat (Measured) ABG O2 Content ABG Base Excess Ross Test VBG pH POC VBG pCO2 POC VBG pO2 Mixed VBG HCO3 O2 Delivery Device Oxygen Flow Rate Sodium Potassium 2.6 L* Chloride Carbon Dioxide Anion Gap BUN Creatinine Creat Clearance w eGFR Random Glucose Lactic Acid 3.0 H* Calcium Phosphorus Magnesium Total Bilirubin AST ALT Alkaline Phosphatase Creatine Kinase Troponin I B-Natriuretic Peptide Total Protein Albumin TSH Urine Color Urine Appearance Urine pH Ur Specific [place] Urine Protein Urine Glucose (UA) Urine Ketones Urine Blood Urine Nitrite Urine Bilirubin Urine Urobilinogen Ur Leukocyte Esterase Urine WBC (Auto) Urine RBC (Auto) Urine Bacteria Hyaline Casts Random Vancomycin Blood Type Antibody Screen 07/26/17 07/26/17 07/27/17 23:30 23:30 05:05 WBC RBC Hgb Hct MCV MCH MCHC RDW Plt Count MPV Total Counted Neutrophils % Neutrophils % (Manual) Band Neutrophils % Lymphocytes % Lymphocytes % (Manual) Monocytes % Monocytes % (Manual) Eosinophils % Basophils % Platelet Estimate Platelet Comment PT with INR INR PTT (Actin FS) Puncture Site ABG pH ABG pCO2 at Pt Temp ABG pO2 at Pt Temp ABG HCO3 ABG O2 Sat (Measured) ABG O2 Content ABG Base Excess Ross Test VBG pH POC VBG pCO2 POC VBG pO2 Mixed VBG HCO3 O2 Delivery Device Oxygen Flow Rate Sodium Potassium Chloride Carbon Dioxide Anion Gap BUN Creatinine Creat Clearance w eGFR Random Glucose Lactic Acid 3.3 H* Calcium Phosphorus 2.8 D Magnesium 2.0 Total Bilirubin AST ALT Alkaline Phosphatase Creatine Kinase Troponin I B-Natriuretic Peptide Total Protein Albumin TSH Urine Color Urine Appearance Urine pH Ur Specific [place] Urine Protein Urine Glucose (UA) Urine Ketones Urine Blood Urine Nitrite Urine Bilirubin Urine Urobilinogen Ur Leukocyte Esterase Urine WBC (Auto) Urine RBC (Auto) Urine Bacteria Hyaline Casts Random Vancomycin 14.871 Blood Type Antibody Screen 07/27/17 07/27/17 07/27/17 05:05 05:05 05:05 WBC 39.7 H* RBC 4.50 Hgb 12.5 Hct 38.5 MCV 85.6 MCH 27.8 MCHC 32.5 RDW 16.1 H Plt Count 220 MPV 10.3 Total Counted Neutrophils % Neutrophils % (Manual) Band Neutrophils % Lymphocytes % Lymphocytes % (Manual) Monocytes % Monocytes % (Manual) Eosinophils % Basophils % Platelet Estimate Platelet Comment PT with INR 15.40 H INR 1.36 H PTT (Actin FS) Puncture Site ABG pH ABG pCO2 at Pt Temp ABG pO2 at Pt Temp ABG HCO3 ABG O2 Sat (Measured) ABG O2 Content ABG Base Excess Ross Test VBG pH POC VBG pCO2 POC VBG pO2 Mixed VBG HCO3 O2 Delivery Device Oxygen Flow Rate Sodium 148 H D Potassium 3.4 L D Chloride 119 H D Carbon Dioxide 16 L Anion Gap 13 BUN 68 H D Creatinine 1.6 H D Creat Clearance w eGFR Random Glucose 101 D Lactic Acid Calcium 7.4 L D Phosphorus 2.5 Magnesium 1.9 Total Bilirubin AST ALT Alkaline Phosphatase Creatine Kinase Troponin I B-Natriuretic Peptide Total Protein Albumin TSH Urine Color Urine Appearance Urine pH Ur Specific [place] Urine Protein Urine Glucose (UA) Urine Ketones Urine Blood Urine Nitrite Urine Bilirubin Urine Urobilinogen Ur Leukocyte Esterase Urine WBC (Auto) Urine RBC (Auto) Urine Bacteria Hyaline Casts Random Vancomycin Blood Type Antibody Screen 07/27/17 07/27/17 05:05 05:05 WBC RBC Hgb Hct MCV MCH MCHC RDW Plt Count MPV Total Counted Neutrophils % Neutrophils % (Manual) Band Neutrophils % Lymphocytes % Lymphocytes % (Manual) Monocytes % Monocytes % (Manual) Eosinophils % Basophils % Platelet Estimate Platelet Comment PT with INR INR PTT (Actin FS) Puncture Site ABG pH ABG pCO2 at Pt Temp ABG pO2 at Pt Temp ABG HCO3 ABG O2 Sat (Measured) ABG O2 Content ABG Base Excess Ross Test VBG pH POC VBG pCO2 POC VBG pO2 Mixed VBG HCO3 O2 Delivery Device Oxygen Flow Rate Sodium Potassium Chloride Carbon Dioxide Anion Gap BUN Creatinine Creat Clearance w eGFR Random Glucose Lactic Acid 2.7 H* Calcium Phosphorus Magnesium Total Bilirubin AST ALT Alkaline Phosphatase Creatine Kinase Troponin I B-Natriuretic Peptide Total Protein Albumin TSH 1.14 D Urine Color Urine Appearance Urine pH Ur Specific [place] Urine Protein Urine Glucose (UA) Urine Ketones Urine Blood Urine Nitrite Urine Bilirubin Urine Urobilinogen Ur Leukocyte Esterase Urine WBC (Auto) Urine RBC (Auto) Urine Bacteria Hyaline Casts Random Vancomycin Blood Type Antibody Screen IMP: Severe sepsis, AMS (acute on chronic) WILBERT leukocytosis PLAN: ABX per ID Follow cultures O2 as needed Aspiration Precautions IV fluid Follow lytes Normal transfusion threshold Dr Bryson Critical care time spent in reviewing chart, evaluating patient and formulating plan - 36 minutes.
[2017-07-27] MEDS: PIPERACILLIN/TAZOB 2.25 GM 2.25 GM in DEXTROSE 5%-WATER - 50 ML IVPB SCH ×4 (10:00→22:49)
[2017-07-27 10:45] LABS: TOTAL CELLS COUNTED 100
[2017-07-27 10:46] LABS: PLATELET COMMENTS NO CLUMPING NOTED; PLATELET ESTIMATE ADEQUATE
--- NOTE | 2017-07-27 11:34 | PN ---
Progress Note, Physician Chief Complaint: 86 year old female of patient of Dr smith seen this am demented, generalized pain to touch alert, awake events noted Initially hypotensive and hypothermic on arrival to ER Not on pressors currently on IV zosyn and IVF had 2 episodes of loose stools yesterday and one today am as per RN - Current Medication List Current Medications: Active Medications Chlorhexidine Gluconate (Hibiclens For Decolonization -) 1 applic TP HS MISTI Last Admin: 07/26/17 23:06 Dose: 1 applic Potassium Chloride/Dextrose/Sod Cl (D5-1/2ns+20 Meq Kcl -) 20 meq in 1,000 mls @ 83 mls/hr IV ASDIR MISTI Last Admin: 07/27/17 06:35 Dose: 83 mls/hr Piperacillin Sod/Tazobactam (Sod 2.25 gm/ Dextrose) 50 mls @ 100 mls/hr IVPB Q6H-IV MISTI PRN Reason: Protocol Last Admin: 07/27/17 10:08 Dose: Not Given Mupirocin (Bactroban Ointment (For Decolonization) -) 1 applic NS BID MISTI Stop: 07/31/17 21:59 Last Admin: 07/27/17 09:25 Dose: 1 applic Sodium Chloride (Normal Saline -) 1,000 ml IV Q20M PRN PRN Reason: MAP<65mm Hg OR SBP <90 - Objective Vital Signs: Vital Signs Temperature 98.7 F 07/27/17 06:00 Pulse Rate 97 H 07/27/17 08:00 Respiratory Rate 26 H 07/27/17 08:26 Blood Pressure 104/73 07/27/17 08:00 O2 Sat by Pulse Oximetry (%) 95 07/27/17 08:26 Constitutional: Yes: Thin, Other (Elderly female, frail looking) Neck: Yes: Supple Cardiovascular: Yes: Regular Rate and Rhythm, S1, S2. No: Murmur Respiratory: Yes: Diminished. No: Rales, Rhonchi Gastrointestinal: Yes: Soft, Tenderness (Genearlized tenderness). No: Distention Genitourinary: Yes: Moh[place] Present (clear yellow urine) Musculoskeletal: Yes: Other (contracted) Extremities: No: Cyanosis Edema: No Neurological: Yes: Alert. No: Oriented Labs: CBC, BMP 07/27/17 05:05 07/27/17 05:05 INR, PTT INR 1.36 (0.82-1.09) H 07/27/17 05:05 - ....Imaging Chest X-ray: Report Reviewed Problem List - Problems (1) Sepsis Code(s): A41.9 - SEPSIS, UNSPECIFIED ORGANISM Qualifiers: Sepsis type: sepsis due to unspecified organism Qualified Code(s): A41.9 - Sepsis, unspecified organism (2) UTI (urinary tract infection) Code(s): N39.0 - URINARY TRACT INFECTION, SITE NOT SPECIFIED Qualifiers: Urinary tract infection type: acute cystitis Hematuria presence: without hematuria Qualified Code(s): N30.00 - Acute cystitis without hematuria (3) Acute renal failure Code(s): N17.9 - ACUTE KIDNEY FAILURE, UNSPECIFIED Qualifiers: Acute renal failure type: unspecified Qualified Code(s): N17.9 - Acute kidney failure, unspecified (4) CAD (coronary artery disease) Code(s): I25.10 - ATHSCL HEART DISEASE OF [place] CORONARY ARTERY W/O ANG PCTRS (5) Hypokalemia Code(s): E87.6 - HYPOKALEMIA (6) Hypothyroidism Code(s): E03.9 - HYPOTHYROIDISM, UNSPECIFIED (7) Leukocytosis Code(s): D72.829 - ELEVATED WHITE BLOOD CELL COUNT, UNSPECIFIED Assessment/Plan Plan sepsis -likely UTI -WBC trending down -Lactic acid trending down - continue zosyn -continue fluids -pending UC, BC -ID consult noted Diarrhea -cultures pending rectal bleed -currently no active bleed -h/h stable -stool OB pending Acute renal failure -improving on IVF generalized abdominal pain -CT abdomen/pelvis pending hypothyroidism check TSH Hypokalemia -resolved advanced directives -DNR/DNI Spoken to keiry silvestre family does not wish for aggressive intervention DVT ppx SCD critical care time spent 40min
--- NOTE | 2017-07-27 12:31 | PN ---
Progress Note (short form) - Note Progress Note: Pt examined alongside [employer] LOCOM[employer] jose agree with findings and plan spoke with Amanda
[2017-07-27] MEDS: CHLORHEXIDINE GLUCONATE 4% CLEANSER FOR DECOLONIZATION TP SCH (22:14)
[2017-07-28] MEDS: PIPERACILLIN/TAZOB 2.25 GM 2.25 GM in DEXTROSE 5%-WATER - 50 ML IVPB SCH ×4 (02:28→22:55)
[2017-07-28 07:30] LABS: MCH 27.8 pg (25.7-33.7); MCHC 32.1 g/dl (32.0-36.0); MEAN CELL VOLUME 86.7 fl (80-96); MEAN PLT VOLUME 9.9 fl (7.5-11.1); PLATELET COUNT 151 K/MM3 (134-434); RDW 16.2 % (11.6-15.6)
[2017-07-28 07:34] LABS: WHITE BLOOD COUNT 34.9 K/mm3 (4.0-10.0)
[2017-07-28 07:58] LABS: ALBUMIN 1.6 g/dl (3.4-5.0); ALK PHOS 77 U/L (45-117); ANION GAP 15 (8-16); BILIRUBIN,TOTAL 0.5 mg/dL (0.2-1.0); CALCIUM 8.1 mg/dL (8.5-10.1); CO2 19 mmol/L (21-32); CREATININE 1.6 mg/dL (0.55-1.02); GLUCOSE,RANDOM 116 mg/dL (74-106); SGOT/AST 13 U/L (15-37); SGPT/ALT 11 U/L (12-78); TOT PROT 4.2 g/dl (6.4-8.2)
[2017-07-28] MEDS: MUPIROCIN 2% TOPICAL OINTMENT FOR DECOLONIZATION NS SCH ×2 (09:09→22:04)
[2017-07-28 09:13] LABS: TOTAL CELLS COUNTED 100
[2017-07-28 09:14] LABS: METAMYELOCYTE 5 % (0-2); PLATELET ESTIMATE ADEQUATE; REACTIVE LYMPHOCYTES 4 % (0-80)
--- NOTE | 2017-07-28 10:46 | PN ---
Progress Note, Physician Chief Complaint: has diarrhea today moaning Moans when touched - Current Medication List Current Medications: Active Medications Chlorhexidine Gluconate (Hibiclens For Decolonization -) 1 applic TP HS [facility] Last Admin: 07/27/17 22:14 Dose: Not Given Potassium Chloride/Dextrose/Sod Cl (D5-1/2ns+20 Meq Kcl -) 20 meq in 1,000 mls @ 83 mls/hr IV ASDIR MISTI Last Admin: 07/27/17 06:35 Dose: 83 mls/hr Piperacillin Sod/Tazobactam (Sod 2.25 gm/ Dextrose) 50 mls @ 100 mls/hr IVPB Q6H-IV MISTI PRN Reason: Protocol Last Admin: 07/28/17 02:28 Dose: 100 mls/hr Potassium Chloride (Potassium Chloride 10 Meq Premix Ivpb -) 10 meq in 100 mls @ 100 mls/hr IVPB Q60M MISTI Stop: 07/28/17 11:29 Mupirocin (Bactroban Ointment (For Decolonization) -) 1 applic NS BID [facility] Stop: 07/31/17 21:59 Last Admin: 07/28/17 09:09 Dose: Not Given Sodium Chloride (Normal Saline -) 1,000 ml IV Q20M PRN PRN Reason: MAP<65mm Hg OR SBP <90 - Objective Vital Signs: Vital Signs Temperature 97.4 F L 07/28/17 06:00 Pulse Rate 78 07/28/17 06:00 Respiratory Rate 97 H 07/28/17 06:00 Blood Pressure 94/60 07/28/17 06:00 O2 Sat by Pulse Oximetry (%) 95 07/27/17 22:00 Constitutional: Yes: Mild Distress Cardiovascular: Yes: Regular Rate and Rhythm Respiratory: Yes: Diminished Gastrointestinal: Yes: Normal Bowel Sounds, Soft. No: Distention, Palpable Mass , Tenderness Edema: No Labs: CBC, BMP 07/28/17 05:20 07/28/17 05:20 INR, PTT INR 1.36 (0.82-1.09) H 07/27/17 05:05 Problem List - Problems (1) Clostridium difficile colitis Code(s): A04.72 - ENTEROCOLITIS D/T CLOSTRIDIUM DIFFICILE, NOT SPCF RECUR (2) Sepsis Code(s): A41.9 - SEPSIS, UNSPECIFIED ORGANISM Qualifiers: Sepsis type: sepsis due to unspecified organism Qualified Code(s): A41.9 - Sepsis, unspecified organism (3) UTI (urinary tract infection) Code(s): N39.0 - URINARY TRACT INFECTION, SITE NOT SPECIFIED Qualifiers: Urinary tract infection type: acute cystitis Hematuria presence: without hematuria Qualified Code(s): N30.00 - Acute cystitis without hematuria (4) Acute renal failure Code(s): N17.9 - ACUTE KIDNEY FAILURE, UNSPECIFIED Qualifiers: Acute renal failure type: unspecified Qualified Code(s): N17.9 - Acute kidney failure, unspecified (5) CAD (coronary artery disease) Code(s): I25.10 - ATHSCL HEART DISEASE OF [place] CORONARY ARTERY W/O ANG PCTRS Assessment/Plan Plan sepsis - UTI -WBC trending down -Lactic acid trending down - continue zosyn -continue fluids -blood cultures noted Diarrhea -positive for Cdiff antigen -- will start IV Flagyl--pt lethargic to take PO -as she has diarrhea -- she had diarrhea prior to arrival here in hospital rectal bleed -currently no active bleed -h/h stable -stool OB positive Acute renal failure -improving on IVF generalized abdominal pain -CT abdomen/pelvis pending hypothyroidism TSH normal Hypokalemia -due to diarrhea -- replace potassium advanced directives -DNR/DNI contact isolation for Kleb pneumoniae, ESBL, Cdiff family does not wish for aggressive intervention DVT ppx SCD
[2017-07-28] MEDS ORDERED: POTASSIUM CHLORIDE 20 MEQ in SODIUM CHLORIDE 250 ML IVPB ONE (11:15)
[2017-07-28] MEDS: KCL 10 MEQ IVPB 10 MEQ/100 ML INFUS.BAG IVPB SCH (11:30)
[2017-07-28] MEDS: METRONIDAZOLE 500 MG PREMIXED 500 MG/100 ML MG IVPB SCH ×2 (11:36→17:14)
--- NOTE | 2017-07-28 12:00 | PN ---
Progress Note (short form) - Note Progress Note: Confused and lethargic. Mumbling/moaning. Breathing non-labored. Intake & Output 07/25/17 07/26/17 07/27/17 07/28/17 23:59 23:59 23:59 23:59 Intake Total 200 1380 275 Output Total 540 1999 900 Balance -046 -990 -162 Weight 80 lb 11.2 oz 82 lb 1.6 oz Last Vital Signs Temp Pulse Resp BP Pulse Ox 97.4 F L 78 97 H 94/60 95 07/28/17 06:00 07/28/17 06:00 07/28/17 06:00 07/28/17 06:00 07/27/17 22:00 Active Medications Chlorhexidine Gluconate (Hibiclens For Decolonization -) 1 applic TP HS MISTI Last Admin: 07/27/17 22:14 Dose: Not Given Potassium Chloride/Dextrose/Sod Cl (D5-1/2ns+20 Meq Kcl -) 20 meq in 1,000 mls @ 83 mls/hr IV ASDIR MISTI Last Admin: 07/27/17 06:35 Dose: 83 mls/hr Piperacillin Sod/Tazobactam (Sod 2.25 gm/ Dextrose) 50 mls @ 100 mls/hr IVPB Q6H-IV MISTI PRN Reason: Protocol Last Admin: 07/28/17 11:36 Dose: 100 mls/hr Metronidazole (Flagyl 500mg Premixed Ivpb -) 500 mg in 100 mls @ 100 mls/hr IVPB Q8H-IV MISTI Last Admin: 07/28/17 11:36 Dose: 100 mls/hr Potassium Chloride 20 meq/ (Sodium Chloride) 260 mls @ 130 mls/hr IVPB ONCE ONE Stop: 07/28/17 13:14 Last Admin: 07/28/17 11:36 Dose: 130 mls/hr Mupirocin (Bactroban Ointment (For Decolonization) -) 1 applic NS BID MISTI Stop: 07/31/17 21:59 Last Admin: 07/28/17 09:09 Dose: Not Given Sodium Chloride (Normal Saline -) 1,000 ml IV Q20M PRN PRN Reason: MAP<65mm Hg OR SBP <90 PE: Gen; cachetic, elderly woman, NAD PULM: clear anterior, no distress CV; irregular, tachy, III/ BUSHRA ABD: soft, ND, (+) BS EXT: no edema, very thin, fail Neuro: agitated, altered, non focal Laboratory Results - last 24 hr 07/27/17 07/27/17 07/28/17 11:00 19:56 05:20 WBC 34.9 H* RBC 4.27 Hgb 11.9 Hct 37.0 MCV 86.7 MCH 27.8 MCHC 32.1 RDW 16.2 H Plt Count 151 D MPV 9.9 Total Counted 100 Neutrophils % (Manual) 42.0 L D Band Neutrophils % 43.0 Lymphocytes % (Manual) 4.0 L D Monocytes % (Manual) 2 L D Metamyelocytes 5 H Manual Slide Review No Result Required. Platelet Estimate Adequate Sodium Potassium Chloride Carbon Dioxide Anion Gap BUN Creatinine Creat Clearance w eGFR Random Glucose Calcium Magnesium Total Bilirubin AST ALT Alkaline Phosphatase Total Protein Albumin Stool Occult Blood Positive Stool O & P Wet [place] Cancelled O & P Permanent Slide Cancelled 07/28/17 05:20 WBC RBC Hgb Hct MCV MCH MCHC RDW Plt Count MPV Total Counted Neutrophils % (Manual) Band Neutrophils % Lymphocytes % (Manual) Monocytes % (Manual) Metamyelocytes Manual Slide Review Platelet Estimate Sodium 152 H Potassium 2.4 L* D Chloride 118 H Carbon Dioxide 19 L Anion Gap 15 BUN 54 H D Creatinine 1.6 H Creat Clearance w eGFR 30.56 Random Glucose 116 H Calcium 8.1 L Magnesium 2.0 Total Bilirubin 0.5 D AST 13 L D ALT 11 L D Alkaline Phosphatase 77 D Total Protein 4.2 L D Albumin 1.6 L D Stool Occult Blood Stool O & P Wet [place] O & P Permanent Slide IMP: Severe sepsis, AMS (acute on chronic) WILBERT leukocytosis PLAN: Replete lytes ABX per ID O2 as needed Aspiration Precautions IV fluid Normal transfusion threshold Dr Bryson
[2017-07-28] MEDS ORDERED: PT OWN MED DRAWER 7, Y5N ONE (16:16)
[2017-07-28] MEDS: D5-1/2NS+20 MEQ KCL - 20 MEQ/1,000 ML INFUS.BAG IV SCH (16:50)
[2017-07-28] MEDS ORDERED: LORazepam 2 MG/ML SDV VIAL IVPUSH ONE ×2 (17:54→22:15)
[2017-07-28] MEDS: CHLORHEXIDINE GLUCONATE 4% CLEANSER FOR DECOLONIZATION TP SCH (22:04)
[2017-07-29] MEDS: METRONIDAZOLE 500 MG PREMIXED 500 MG/100 ML MG IVPB SCH ×2 (01:28→09:36)
[2017-07-29] MEDS: PIPERACILLIN/TAZOB 2.25 GM 2.25 GM in DEXTROSE 5%-WATER - 50 ML IVPB SCH ×2 (03:35→09:36)
[2017-07-29] MEDS: D5-1/2NS+20 MEQ KCL - 20 MEQ/1,000 ML INFUS.BAG IV SCH ×2 (06:13→13:29)
[2017-07-29] MEDS ORDERED: PT OWN MED DRAWER 7, Y5N ONE (09:30)
[2017-07-29] MEDS: MUPIROCIN 2% TOPICAL OINTMENT FOR DECOLONIZATION NS SCH (10:04)
--- NOTE | 2017-07-29 11:20 | PN ---
Progress Note, Physician Chief Complaint: slightly more awake today has loose stools, but less than yesterday She ate puree diet with assistance Met with family at bedside Sister who lives with her states that pt is usually someone who is able to make her needs known. - Current Medication List Current Medications: Active Medications Chlorhexidine Gluconate (Hibiclens For Decolonization -) 1 applic TP HS MISTI Last Admin: 07/28/17 22:04 Dose: Not Given Potassium Chloride/Dextrose/Sod Cl (D5-1/2ns+20 Meq Kcl -) 20 meq in 1,000 mls @ 83 mls/hr IV ASDIR MISTI Last Admin: 07/29/17 06:13 Dose: 83 mls/hr Piperacillin Sod/Tazobactam (Sod 2.25 gm/ Dextrose) 50 mls @ 100 mls/hr IVPB Q6H-IV MISTI PRN Reason: Protocol Last Admin: 07/29/17 09:36 Dose: 100 mls/hr Metronidazole (Flagyl 500mg Premixed Ivpb -) 500 mg in 100 mls @ 100 mls/hr IVPB Q8H-IV MISTI Last Admin: 07/29/17 09:36 Dose: 100 mls/hr Mupirocin (Bactroban Ointment (For Decolonization) -) 1 applic NS BID MISTI Stop: 07/31/17 21:59 Last Admin: 07/29/17 10:04 Dose: Not Given Sodium Chloride (Normal Saline -) 1,000 ml IV Q20M PRN PRN Reason: MAP<65mm Hg OR SBP <90 - Objective Vital Signs: Vital Signs Temperature 97.0 F L 07/29/17 08:00 Pulse Rate 84 07/29/17 08:00 Respiratory Rate 18 07/29/17 08:00 Blood Pressure 149/77 07/29/17 08:00 O2 Sat by Pulse Oximetry (%) 97 07/28/17 22:00 Constitutional: Yes: No Distress Cardiovascular: Yes: Regular Rate and Rhythm Respiratory: Yes: Diminished Gastrointestinal: Yes: Normal Bowel Sounds, Soft. No: Distention, Tenderness Extremities: Yes: Other (contracted) Edema: No Psychiatric: Yes: Other (awake) Labs: CBC, BMP 07/28/17 05:20 07/28/17 05:20 INR, PTT INR 1.36 (0.82-1.09) H 07/27/17 05:05 Problem List - Problems (1) Clostridium difficile colitis Code(s): A04.72 - ENTEROCOLITIS D/T CLOSTRIDIUM DIFFICILE, NOT SPCF RECUR (2) Sepsis Code(s): A41.9 - SEPSIS, UNSPECIFIED ORGANISM Qualifiers: Sepsis type: sepsis due to unspecified organism Qualified Code(s): A41.9 - Sepsis, unspecified organism (3) UTI (urinary tract infection) Code(s): N39.0 - URINARY TRACT INFECTION, SITE NOT SPECIFIED Qualifiers: Urinary tract infection type: acute cystitis Hematuria presence: without hematuria Qualified Code(s): N30.00 - Acute cystitis without hematuria (4) Acute renal failure Code(s): N17.9 - ACUTE KIDNEY FAILURE, UNSPECIFIED Qualifiers: Acute renal failure type: unspecified Qualified Code(s): N17.9 - Acute kidney failure, unspecified (5) CAD (coronary artery disease) Code(s): I25.10 - ATHSCL HEART DISEASE OF [place] CORONARY ARTERY W/O ANG PCTRS (6) Bacteremia due to Gram-negative bacteria Code(s): R78.81 - BACTEREMIA Assessment/Plan Plan sepsis - UTI -WBC trending down, check labs today -pt slowly improving, though still she is acute-- explained to family-- not back at her baseline - spoke with ID- change to Ceftriaxone. DC Zosyn -continue fluids -blood cultures noted Diarrhea -positive for Cdiff antigen -- DC Flagyl, per ID -- change to PO Vanco -- Cdiff PCR to be sent -- she had diarrhea prior to arrival here in hospital rectal bleed -currently no active bleed -h/h stable -stool OB positive Acute renal failure -improving on IVF -- repeat labs today , check potassium generalized abdominal pain -no further pain , she was tender generalized due to sepsis , bacteremia. Will dc CT hypothyroidism TSH normal Hypokalemia -due to diarrhea -- check potassium advanced directives -DNR/DNI contact isolation for Kleb pneumoniae, Cdiff family does not wish for aggressive intervention DVT ppx SCD
[2017-07-29 11:51] LABS: MCH 27.4 pg (25.7-33.7); MCHC 31.5 g/dl (32.0-36.0); MEAN CELL VOLUME 87.1 fl (80-96); MEAN PLT VOLUME 9.2 fl (7.5-11.1); PLATELET COUNT 124 K/MM3 (134-434); RDW 16.6 % (11.6-15.6); WHITE BLOOD COUNT 30.8 K/mm3 (4.0-10.0)
--- NOTE | 2017-07-29 11:54 | PN ---
Progress Note, Physician Chief Complaint: ID Ariel FONTANEZ - Current Medication List Current Medications: Active Medications Chlorhexidine Gluconate (Hibiclens For Decolonization -) 1 applic TP HS MISTI Last Admin: 07/28/17 22:04 Dose: Not Given Potassium Chloride/Dextrose/Sod Cl (D5-1/2ns+20 Meq Kcl -) 20 meq in 1,000 mls @ 83 mls/hr IV ASDIR MISTI Last Admin: 07/29/17 06:13 Dose: 83 mls/hr Piperacillin Sod/Tazobactam (Sod 2.25 gm/ Dextrose) 50 mls @ 100 mls/hr IVPB Q6H-IV MISTI PRN Reason: Protocol Last Admin: 07/29/17 09:36 Dose: 100 mls/hr Metronidazole (Flagyl 500mg Premixed Ivpb -) 500 mg in 100 mls @ 100 mls/hr IVPB Q8H-IV MISTI Last Admin: 07/29/17 09:36 Dose: 100 mls/hr Mupirocin (Bactroban Ointment (For Decolonization) -) 1 applic NS BID MISTI Stop: 07/31/17 21:59 Last Admin: 07/29/17 10:04 Dose: Not Given Sodium Chloride (Normal Saline -) 1,000 ml IV Q20M PRN PRN Reason: MAP<65mm Hg OR SBP <90 - Objective Vital Signs: Vital Signs Temperature 97.0 F L 07/29/17 08:00 Pulse Rate 84 07/29/17 08:00 Respiratory Rate 18 07/29/17 08:00 Blood Pressure 149/77 07/29/17 08:00 O2 Sat by Pulse Oximetry (%) 97 07/28/17 22:00 Constitutional: Yes: Thin Cardiovascular: Yes: S1, S2 Respiratory: Yes: WNL, Regular, CTA Bilaterally Gastrointestinal: Yes: WNL, Normal Bowel Sounds, Soft. No: Tenderness, Tenderness, Epigastrium Edema: No Labs: CBC, BMP 07/28/17 05:20 07/28/17 05:20 INR, PTT INR 1.36 (0.82-1.09) H 07/27/17 05:05 Problem List - Problems (1) Sepsis Code(s): A41.9 - SEPSIS, UNSPECIFIED ORGANISM Qualifiers: Sepsis type: sepsis due to unspecified organism Qualified Code(s): A41.9 - Sepsis, unspecified organism (2) UTI (urinary tract infection) Code(s): N39.0 - URINARY TRACT INFECTION, SITE NOT SPECIFIED Qualifiers: Urinary tract infection type: acute cystitis Hematuria presence: without hematuria Qualified Code(s): N30.00 - Acute cystitis without hematuria (3) Acute renal failure Code(s): N17.9 - ACUTE KIDNEY FAILURE, UNSPECIFIED Qualifiers: Acute renal failure type: unspecified Qualified Code(s): N17.9 - Acute kidney failure, unspecified Assessment/Plan Microbiology 07/26/17 14:50 Blood - Peripheral Venous Blood Culture - Final Klebsiella Pneumoniae 07/26/17 14:40 Urine - Urine - Catheterized Urine Culture - Final Escherichia Coli [employer] Laboratory Tests 07/28/17 05:20 WBC 34.9 H* Hgb 11.9 Hct 37.0 Plt Count 151 D Assessment Klebsiella bacteremia with UTI Does not look like ESBL !! Leukomoid reaction C diff AG positive toxin neg but leukomoid response c/w C diff infection Plan Switch to Ceftraixone for total of 7 days IV therapy then po Vantin for balnce to make 14 days Stop Flagyl Given oral vancomycin for C diff infection Send stool for PCR C diff Discussed with Dr Cueva 4 more days of IV therapy Philly SINGH
[2017-07-29 12:12] LABS: ANION GAP 10 (8-16); CALCIUM 7.4 mg/dL (8.5-10.1); CO2 21 mmol/L (21-32); CREATININE 1.5 mg/dL (0.55-1.02); GLUCOSE,RANDOM 114 mg/dL (74-106)
[2017-07-29] MEDS ORDERED: CEFTRIAXONE 1 GM in DEXTROSE 5%-WATER - 50 ML IVPB SCH (12:15)
[2017-07-29] MEDS ORDERED: CEFTRIAXONE 1 GM/50 ML BAG IVPB SCH (12:19)
--- NOTE | 2017-07-29 12:55 | PN ---
Progress Note, Physician History of Present Illness: PULMONARY DROWSY,-RESP DISTRESS - Current Medication List Current Medications: Active Medications Carbidopa/Levodopa (Sinemet 25/100 -) 2 each PO TID [facility] Potassium Chloride (Potassium Chloride 10 Meq Premix Ivpb -) 10 meq in 100 mls @ 100 mls/hr IVPB Q60M [facility]ISTI Stop: 07/29/17 15:29 Potassium Chloride/Dextrose/Sod Cl (D5-1/2ns+20 Meq Kcl -) 20 meq in 1,000 mls @ 100 mls/hr IV ASDIR MISTI Ceftriaxone Sodium (Rocephin 1gm Ivpb (Pre-Docked)) 1 gm in 50 mls @ 100 mls/ hr IVPB DAILY MISTI Levothyroxine Sodium (Synthroid -) 50 mcg PO DAILY@0700 MISTI Vancomycin HCl (Vancomycin Oral Solution) 125 mg PO Q6HPO MISTI - Objective Vital Signs: Vital Signs Temperature 97.0 F L 07/29/17 08:00 Pulse Rate 84 07/29/17 08:00 Respiratory Rate 18 07/29/17 08:00 Blood Pressure 149/77 07/29/17 08:00 O2 Sat by Pulse Oximetry (%) 97 07/28/17 22:00 Constitutional: Yes: Thin, Other Eyes: Yes: WNL HENT: Yes: WNL Neck: Yes: WNL Cardiovascular: Yes: Regular Rate and Rhythm, S1, S2 Respiratory: Yes: Diminished, Other (POOR INSPIRATORY EFFORT) Gastrointestinal: Yes: Normal Bowel Sounds, Soft Extremities: Yes: WNL Edema: No Labs: CBC, BMP 07/29/17 11:20 07/29/17 11:35 INR, PTT INR 1.36 (0.82-1.09) H 07/27/17 05:05 Problem List - Problems (1) Sepsis Code(s): A41.9 - SEPSIS, UNSPECIFIED ORGANISM Qualifiers: Sepsis type: sepsis due to unspecified organism Qualified Code(s): A41.9 - Sepsis, unspecified organism (2) CAD (coronary artery disease) Code(s): I25.10 - ATHSCL HEART DISEASE OF [place] CORONARY ARTERY W/O ANG PCTRS (3) CHF (congestive heart failure) Code(s): I50.9 - HEART FAILURE, UNSPECIFIED Qualifiers: Congestive heart failure type: unspecified congestive heart failure type Congestive heart failure chronicity: acute on chronic Qualified Code(s): I50.9 - Heart failure, unspecified (4) DVT prophylaxis Code(s): [id number] - (5) Hypokalemia Code(s): E87.6 - HYPOKALEMIA (6) Weakness Code(s): R53.1 - WEAKNESS (7) Acute renal failure Code(s): N17.9 - ACUTE KIDNEY FAILURE, UNSPECIFIED Qualifiers: Acute renal failure type: unspecified Qualified Code(s): N17.9 - Acute kidney failure, unspecified Assessment/Plan IMP: s/p Severe sepsis, AMS (acute on chronic) WILBERT leukocytosis Hypernatremia PLAN: Replete lytes ABX per ID O2 as needed Aspiration Precautions IV fluid Normal transfusion threshold DR SWARTZ
[2017-07-29] MEDS: VANCOMYCIN 250 MG/5 ML ORAL SOLUTION PO SCH ×2 (14:02→18:51)
[2017-07-29] MEDS ORDERED: POTASSIUM CHLORIDE 30 MEQ in SODIUM CHLORIDE 300 ML IVPB ONE (15:00)
[2017-07-29] MEDS: CARBIDOPA/LEVODOPA 25/100 TABLET (FP) PO SCH ×2 (15:11→22:11)
[2017-07-29] MEDS: KCL 10 MEQ IVPB 10 MEQ/100 ML INFUS.BAG IVPB SCH ×2 (15:46→15:47)
--- NOTE | 2017-07-29 23:11 | EKG ---
Test Reason : Blood Pressure : / mmHG Vent. Rate : 089 BPM Atrial Rate : 089 BPM P-R Int : 150 ms QRS Dur : 086 ms QT Int : 360 ms P-R-T Axes : 053 -53 186 degrees QTc Int : 438 ms NORMAL SINUS RHYTHM LEFT ANTERIOR FASCICULAR BLOCK MODERATE VOLTAGE CRITERIA FOR LVH, MAY BE NORMAL VARIANT ABNORMAL ECG WHEN COMPARED WITH ECG OF 26-APR-2017 14:50, Confirmed by MARGI SINGH, JAZMIN ([id number]) on 07/29/2017 11:10:37 PM Referred By: Confirmed By:JAZMIN KISER MD
[2017-07-30] MEDS: VANCOMYCIN 250 MG/5 ML ORAL SOLUTION PO SCH ×5 (00:04→23:23)
[2017-07-30] MEDS: CARBIDOPA/LEVODOPA 25/100 TABLET (FP) PO SCH ×3 (06:17→23:00)
[2017-07-30] MEDS: LEVOTHYROXINE NA 50 MCG TABLET (FP) PO SCH (06:18)
[2017-07-30 07:33] LABS: MCH 27.6 pg (25.7-33.7); MEAN CELL VOLUME 86.2 fl (80-96); MEAN PLT VOLUME 9.6 fl (7.5-11.1); PLATELET COUNT 121 K/MM3 (134-434); RDW 16.8 % (11.6-15.6); WHITE BLOOD COUNT 22.3 K/mm3 (4.0-10.0)
[2017-07-30 07:48] LABS: ANION GAP 8 (8-16); CALCIUM 7.5 mg/dL (8.5-10.1); CO2 23 mmol/L (21-32); CREATININE 1.2 mg/dL (0.55-1.02); GLUCOSE,RANDOM 108 mg/dL (74-106)
[2017-07-30] MEDS: CEFTRIAXONE 1 G/50 ML PREMIX 1 ML IVPB SCH (10:32)
[2017-07-30] MEDS ORDERED: FLU VACCINE QUAD 60 MCG/0.5 ML (MDV 17-18) IM ONE (10:36)
[2017-07-30] MEDS ORDERED: KCL 10 MEQ IVPB 10 MEQ/100 ML INFUS.BAG IVPB SCH (11:00)
[2017-07-30] MEDS ORDERED: POTASSIUM CHLORIDE 30 MEQ in SODIUM CHLORIDE 300 ML IVPB ONE (11:15)
--- NOTE | 2017-07-30 11:21 | PN ---
Progress Note, Physician Chief Complaint: awake today has loose stools today She ate puree diet with assistance Met with family at bedside Sister who lives with her states that pt is usually someone who is able to make her needs known. - Current Medication List Current Medications: Active Medications Carbidopa/Levodopa (Sinemet 25/100 -) 2 each PO TID [facility] Last Admin: 07/30/17 06:17 Dose: 2 each Potassium Chloride/Dextrose/Sod Cl (D5-1/2ns+20 Meq Kcl -) 20 meq in 1,000 mls @ 100 mls/hr IV ASDIR [facility] Last Admin: 07/29/17 13:29 Dose: 100 mls/hr CEFTRIAXONE 1 G/50 ML PREMIX (Ceftriaxone 1 Gm-D5w Bag) 1 mls @ 100 mls/hr IVPB DAILY [facility] Last Admin: 07/30/17 10:32 Dose: 100 mls/hr Potassium Chloride 30 meq/ (Sodium Chloride) 315 mls @ 88.333 mls/hr IVPB ONCE ONE Stop: 07/30/17 14:48 Levothyroxine Sodium (Synthroid -) 50 mcg PO DAILY@0700 [facility] Last Admin: 07/30/17 06:18 Dose: 50 mcg Vancomycin HCl (Vancomycin Oral Solution) 125 mg PO Q6HPO [facility] Last Admin: 07/30/17 06:17 Dose: 125 mg - Objective Vital Signs: Vital Signs Temperature 97.2 F L 07/30/17 10:00 Pulse Rate 78 07/30/17 10:00 Respiratory Rate 18 07/30/17 10:00 Blood Pressure 145/62 07/30/17 10:00 O2 Sat by Pulse Oximetry (%) 100 07/29/17 21:00 Constitutional: Yes: No Distress, Calm Cardiovascular: Yes: Regular Rate and Rhythm Respiratory: Yes: CTA Bilaterally Gastrointestinal: Yes: Normal Bowel Sounds, Soft. No: Distention, Tenderness Genitourinary: Yes: Other (deep tissue injury sacrum, no open ulcers) Extremities: Yes: Other (contracted extremities) Edema: No Neurological: Yes: Other (awake) Labs: CBC, BMP 07/30/17 06:45 07/30/17 06:45 INR, PTT INR 1.36 (0.82-1.09) H 07/27/17 05:05 Problem List - Problems (1) Clostridium difficile colitis Code(s): A04.72 - ENTEROCOLITIS D/T CLOSTRIDIUM DIFFICILE, NOT SPCF RECUR (2) Sepsis Code(s): A41.9 - SEPSIS, UNSPECIFIED ORGANISM Qualifiers: Sepsis type: sepsis due to unspecified organism Qualified Code(s): A41.9 - Sepsis, unspecified organism (3) UTI (urinary tract infection) Code(s): N39.0 - URINARY TRACT INFECTION, SITE NOT SPECIFIED Qualifiers: Urinary tract infection type: acute cystitis Hematuria presence: without hematuria Qualified Code(s): N30.00 - Acute cystitis without hematuria (4) Acute renal failure Code(s): N17.9 - ACUTE KIDNEY FAILURE, UNSPECIFIED Qualifiers: Acute renal failure type: unspecified Qualified Code(s): N17.9 - Acute kidney failure, unspecified (5) CAD (coronary artery disease) Code(s): I25.10 - ATHSCL HEART DISEASE OF [place] CORONARY ARTERY W/O ANG PCTRS (6) Bacteremia due to Gram-negative bacteria Code(s): R78.81 - BACTEREMIA Assessment/Plan Plan sepsis - UTI -WBC trending down -pt slowly improving, though still she is acute-- explained to family-- not back at her baseline - spoke with ID- change to Ceftriaxone. DC Zosyn -continue fluids -blood cultures noted Metabolic encephalopathy due to worsening parkinsons dementia, due to sepsis, UTI , bacteremia, Cdiff Diarrhea -positive for Cdiff antigen -- DC Flagyl, per ID -- change to PO Vanco -- Cdiff PCR pending -- she had diarrhea prior to arrival here in hospital rectal bleed -currently no active bleed -h/h stable -stool OB positive Hypernatremia -- renal eval -- replace potassium generalized abdominal pain -no further pain , she was tender generalized due to sepsis , bacteremia. Will dc CT hypothyroidism TSH normal Hypokalemia -due to diarrhea --replace potassium advanced directives -DNR/DNI contact isolation for Kleb pneumoniae, Cdiff family does not wish for aggressive intervention Deep tissue injury sacrum -- pt requires semi- electric hospital bed with an alternating pressure pad mattress. She has deep tissue injury in sacrum-- dressing placed. No open ulcer. She is contracted. Pt requires frequent body position changes not feasible with a regular bed to prevent pressure ulcers and alleviate pain . PT eval suggested DVT ppx SCD
--- NOTE | 2017-07-30 12:13 | PN ---
Progress Note (short form) - Note Progress Note: PULMONARY Per family at bedside, mental status improved today. No fevers recorded. Last Vital Signs Temp Pulse Resp BP Pulse Ox 97.2 F L 78 18 145/62 100 07/30/17 10:00 07/30/17 10:00 07/30/17 10:00 07/30/17 10:00 07/29/17 21:00 Gen: NAD at rest, frail Heart: RRR Lung: decreased breath sounds at the bases Abd: soft, nontender Ext: no edema CBC, BMP 07/30/17 06:45 07/30/17 06:45 Active Medications Carbidopa/Levodopa (Sinemet 25/100 -) 2 each PO TID [facility] Last Admin: 07/30/17 06:17 Dose: 2 each Potassium Chloride/Dextrose/Sod Cl (D5-1/2ns+20 Meq Kcl -) 20 meq in 1,000 mls @ 100 mls/hr IV ASDIR [facility] Last Admin: 07/29/17 13:29 Dose: 100 mls/hr CEFTRIAXONE 1 G/50 ML PREMIX (Ceftriaxone 1 Gm-D5w Bag) 1 mls @ 100 mls/hr IVPB DAILY [facility] Last Admin: 07/30/17 10:32 Dose: 100 mls/hr Potassium Chloride 30 meq/ (Sodium Chloride) 315 mls @ 88.333 mls/hr IVPB ONCE ONE Stop: 07/30/17 14:48 Levothyroxine Sodium (Synthroid -) 50 mcg PO DAILY@0700 [facility] Last Admin: 07/30/17 06:18 Dose: 50 mcg Vancomycin HCl (Vancomycin Oral Solution) 125 mg PO Q6HPO [facility] Last Admin: 07/30/17 06:17 Dose: 125 mg A/P UTI +C diff Ag Gram Negative Bacteremia Sepsis Acute Kidney Injury improving Lactic Acidosis Hypernatremia Altered Mental Status improving - continue antibiotics - IVF - free water replacement - monitor lytes - aspiration precautions - DVT prophylaxis
[2017-07-30] MEDS: D5-1/2NS+20 MEQ KCL - 20 MEQ/1,000 ML INFUS.BAG IV SCH ×2 (13:35→17:17)
[2017-07-31] MEDS: LEVOTHYROXINE NA 50 MCG TABLET (FP) PO SCH (06:38)
[2017-07-31] MEDS: CARBIDOPA/LEVODOPA 25/100 TABLET (FP) PO SCH ×3 (06:38→21:08)
[2017-07-31] MEDS: VANCOMYCIN 250 MG/5 ML ORAL SOLUTION PO SCH ×3 (06:40→18:37)
[2017-07-31 07:14] LABS: BASOPHIL 0.1 % (0-2.0); EOSINOPHIL 0.9 % (0-4.5); MCH 27.5 pg (25.7-33.7); MCHC 31.7 g/dl (32.0-36.0); MEAN CELL VOLUME 86.7 fl (80-96); MEAN PLT VOLUME 10.3 fl (7.5-11.1); NEUTROPHILS 80.3 % (42.8-82.8); PLATELET COUNT 110 K/MM3 (134-434); RDW 17.2 % (11.6-15.6); WHITE BLOOD COUNT 17.7 K/mm3 (4.0-10.0)
[2017-07-31 07:57] LABS: ALBUMIN 1.6 g/dl (3.4-5.0); ALK PHOS 84 U/L (45-117); ANION GAP 6 (8-16); BILIRUBIN,TOTAL 0.3 mg/dL (0.2-1.0); CALCIUM 7.7 mg/dL (8.5-10.1); CO2 22 mmol/L (21-32); CREATININE 0.9 mg/dL (0.55-1.02); GLUCOSE,RANDOM 120 mg/dL (74-106); SGOT/AST 6 U/L (15-37); SGPT/ALT < 6 U/L (12-78)
[2017-07-31] MEDS ORDERED: PT OWN MED DRAWER 7, Y5N ONE ×2 (09:47→20:34)
[2017-07-31] MEDS: CEFTRIAXONE 1 G/50 ML PREMIX 1 ML IVPB SCH (09:53)
--- NOTE | 2017-07-31 11:11 | PN ---
Progress Note, Physician Chief Complaint: awake today less loose stools today poor po intake - Current Medication List Current Medications: Active Medications Carbidopa/Levodopa (Sinemet 25/100 -) 2 each PO TID [facility] Last Admin: 07/31/17 06:38 Dose: 2 each Potassium Chloride/Dextrose/Sod Cl (D5-1/2ns+20 Meq Kcl -) 20 meq in 1,000 mls @ 100 mls/hr IV ASDIR [facility] Last Admin: 07/30/17 17:17 Dose: 100 mls/hr CEFTRIAXONE 1 G/50 ML PREMIX (Ceftriaxone 1 Gm-D5w Bag) 1 mls @ 100 mls/hr IVPB DAILY [facility] Last Admin: 07/31/17 09:53 Dose: 100 mls/hr Levothyroxine Sodium (Synthroid -) 50 mcg PO DAILY@0700 [facility] Last Admin: 07/31/17 06:38 Dose: 50 mcg Vancomycin HCl (Vancomycin Oral Solution) 125 mg PO Q6HPO [facility] Last Admin: 07/31/17 06:40 Dose: 125 mg - Objective Vital Signs: Vital Signs Temperature 97.6 F 07/31/17 09:58 Pulse Rate 80 07/31/17 09:58 Respiratory Rate 20 07/31/17 09:58 Blood Pressure 136/94 07/31/17 09:58 O2 Sat by Pulse Oximetry (%) 95 07/30/17 20:16 Constitutional: Yes: No Distress, Calm Cardiovascular: Yes: Regular Rate and Rhythm Respiratory: Yes: Diminished Gastrointestinal: Yes: Normal Bowel Sounds, Soft. No: Distention, Tenderness Edema: No Labs: CBC, BMP 07/31/17 06:15 07/31/17 06:15 INR, PTT INR 1.36 (0.82-1.09) H 07/27/17 05:05 Problem List - Problems (1) Clostridium difficile colitis Code(s): A04.72 - ENTEROCOLITIS D/T CLOSTRIDIUM DIFFICILE, NOT SPCF RECUR (2) Sepsis Code(s): A41.9 - SEPSIS, UNSPECIFIED ORGANISM Qualifiers: Sepsis type: sepsis due to unspecified organism Qualified Code(s): A41.9 - Sepsis, unspecified organism (3) UTI (urinary tract infection) Code(s): N39.0 - URINARY TRACT INFECTION, SITE NOT SPECIFIED Qualifiers: Urinary tract infection type: acute cystitis Hematuria presence: without hematuria Qualified Code(s): N30.00 - Acute cystitis without hematuria (4) Acute renal failure Code(s): N17.9 - ACUTE KIDNEY FAILURE, UNSPECIFIED Qualifiers: Acute renal failure type: unspecified Qualified Code(s): N17.9 - Acute kidney failure, unspecified (5) CAD (coronary artery disease) Code(s): I25.10 - ATHSCL HEART DISEASE OF [place] CORONARY ARTERY W/O ANG PCTRS (6) Bacteremia due to Gram-negative bacteria Code(s): R78.81 - BACTEREMIA Assessment/Plan Plan sepsis - UTI -WBC trending down -pt improving, poor po inatake- add megace -continue fluids Metabolic encephalopathy due to worsening parkinsons dementia, due to sepsis, UTI , bacteremia, Cdiff Diarrhea -positive for Cdiff antigen -- DC Flagyl, per ID -- change to PO Vanco -- Cdiff PCR pending -- WBC decreasing -- she had diarrhea prior to arrival here in hospital rectal bleed -currently no active bleed -h/h stable -stool OB positive Hypernatremia -- iv fluids -- replace potassium generalized abdominal pain -no further pain , she was tender generalized due to sepsis , bacteremia. Will dc CT hypothyroidism TSH normal Hypokalemia -due to diarrhea --replace potassium advanced directives -DNR/DNI contact isolation for Kleb pneumoniae, Cdiff family does not wish for aggressive intervention Deep tissue injury sacrum -- pt requires semi- electric hospital bed with an alternating pressure pad mattress. She has deep tissue injury in sacrum-- dressing placed. No open ulcer. She is contracted. Pt requires frequent body position changes not feasible with a regular bed to prevent pressure ulcers and alleviate pain . PT marck suggested She needs gel overlay mattress to reduce the risk of skin break down due to pt' s inability to make changes in body position due to limited mobility DVT ppx SCD
[2017-07-31] MEDS: D5-1/2NS+20 MEQ KCL - 20 MEQ/1,000 ML INFUS.BAG IV SCH (14:33)
[2017-07-31] MEDS: MEGESTROL ACETATE 400 MG/10 ML UNIT DOSE CUP PO SCH (21:07)
[2017-08-01] MEDS: D5-1/2NS+20 MEQ KCL - 20 MEQ/1,000 ML INFUS.BAG IV SCH ×3 (05:55→23:57)
[2017-08-01] MEDS: VANCOMYCIN 250 MG/5 ML ORAL SOLUTION PO SCH ×5 (05:56→23:52)
[2017-08-01] MEDS: CARBIDOPA/LEVODOPA 25/100 TABLET (FP) PO SCH ×3 (05:56→22:29)
[2017-08-01] MEDS: LEVOTHYROXINE NA 50 MCG TABLET (FP) PO SCH (06:09)
[2017-08-01 07:18] LABS: BASOPHIL 0.3 % (0-2.0); EOSINOPHIL 0.7 % (0-4.5); MCH 27.3 pg (25.7-33.7); MCHC 31.7 g/dl (32.0-36.0); MEAN CELL VOLUME 85.9 fl (80-96); MEAN PLT VOLUME 10.1 fl (7.5-11.1); NEUTROPHILS 78.9 % (42.8-82.8); PLATELET COUNT 104 K/MM3 (134-434); RDW 17.4 % (11.6-15.6)
[2017-08-01 08:13] LABS: ALBUMIN 1.6 g/dl (3.4-5.0); ANION GAP 7 (8-16); CO2 20 mmol/L (21-32); CREATININE 0.7 mg/dL (0.55-1.02); GLUCOSE,RANDOM 134 mg/dL (74-106); SGPT/ALT < 6 U/L (12-78)
[2017-08-01 08:15] LABS: ALK PHOS 88 U/L (45-117); BILIRUBIN,TOTAL 0.6 mg/dL (0.2-1.0); TOT PROT 3.9 g/dl (6.4-8.2)
[2017-08-01 08:19] LABS: SGOT/AST 4 U/L (15-37)
[2017-08-01 08:37] LABS: CALCIUM 6.7 mg/dL (8.5-10.1)
[2017-08-01] MEDS ORDERED: CALCIUM GLUCONATE 10% - 1,000 MG/10 ML VIAL IVPB ONE (08:48)
[2017-08-01] MEDS ORDERED: POTASSIUM CHLORIDE ORAL LIQUID 20 MEQ/15 ML PO ONE (09:10)
[2017-08-01] MEDS ORDERED: PT OWN MED DRAWER 7, Y5N ONE (09:48)
[2017-08-01] MEDS: MEGESTROL ACETATE 400 MG/10 ML UNIT DOSE CUP PO SCH (09:55)
[2017-08-01] MEDS: CEFTRIAXONE 1 G/50 ML PREMIX 1 ML IVPB SCH (12:25)
--- NOTE | 2017-08-01 14:16 | PN ---
Progress Note (short form) - Note Progress Note: Pt examined alongside BORDER PATROL AGENT jose agree with findings and plan spoke with Niece and sister Vital Signs - 24 hr 07/31/17 07/31/17 07/31/17 14:27 18:00 21:00 Temperature 97.9 F 97.7 F Pulse Rate 75 89 Respiratory 20 18 18 Rate Blood Pressure 128/69 119/73 O2 Sat by Pulse 98 Oximetry (%) 07/31/17 08/01/17 08/01/17 23:00 06:17 09:00 Temperature 97.9 F 97.4 F L Pulse Rate 90 96 H Respiratory 18 20 Rate Blood Pressure 110/76 123/79 O2 Sat by Pulse 96 Oximetry (%) 08/01/17 08/01/17 10:00 13:49 Temperature 98.1 F 98.0 F Pulse Rate 94 H 77 Respiratory 18 20 Rate Blood Pressure 135/80 107/71 O2 Sat by Pulse Oximetry (%) Current Medications Generic Name Dose Route Start Last Admin Trade Name Freq PRN Reason Stop Dose Admin Carbidopa/Levodopa 2 each 07/29/17 14:00 08/01/17 14:13 Sinemet 25/100 - PO 2 each TID MISTI Administration Potassium Chloride/Dextrose/Sod Cl 20 meq in 1,000 mls @ 100 mls/hr 07/29/17 12:17 08/01/17 12:38 D5-1/2ns+20 Meq Kcl - IV 100 mls/hr ASDIR MISTI Administration CEFTRIAXONE 1 G/50 ML PREMIX 1 mls @ 100 mls/hr 07/29/17 14:54 08/01/17 12:25 Ceftriaxone 1 Gm-D5w Bag IVPB 100 mls/hr DAILY M[facility]I Administration Levothyroxine Sodium 50 mcg 07/30/17 07:00 08/01/17 06:09 Synthroid - PO 50 mcg DAILY@0700 MISTI Administration Megestrol Acetate 400 mg 07/31/17 20:30 08/01/17 09:55 Megace Oral Suspension - PO 400 mg DAILY MISTI Administration Vancomycin HCl 125 mg 07/29/17 12:00 08/01/17 12:25 Vancomycin Oral Solution PO 125 mg Q6HPO MISTI Administration Laboratory Results - last 24 hr 08/01/17 08/01/17 06:45 06:45 WBC 16.0 H RBC 3.96 Hgb 10.8 Hct 34.0 MCV 85.9 MCH 27.3 MCHC 31.7 L RDW 17.4 H Plt Count 104 L MPV 10.1 Neutrophils % 78.9 Lymphocytes % 16.4 Monocytes % 3.7 L Eosinophils % 0.7 Basophils % 0.3 Sodium 155 H Potassium 3.3 L Chloride 128 H Carbon Dioxide 20 L Anion Gap 7 L BUN 12 D Creatinine 0.7 D Creat Clearance w eGFR > 60 Random Glucose 134 H Calcium 6.7 L* Total Bilirubin 0.6 D AST 4 L D ALT < 6 L Alkaline Phosphatase 88 Total Protein 3.9 L Albumin 1.6 L S1 s2 RRR Lungs decreased Abd- soft, NT No edema PLAN IV antibiotics-- change to PO tomorrow PO vanco WBC decreasing Cdiff PCR positive for toxin replace lytes family aware that pt is not eating , high chance that she will get dehydrated again As per sister pt declined in past one month - up until one month ago she was able to ambulate with walker they want her back home -- with home care and VNS on [employer] Problem List - Problems (1) Clostridium difficile colitis Code(s): A04.72 - ENTEROCOLITIS D/T CLOSTRIDIUM DIFFICILE, NOT SPCF RECUR (2) Sepsis Code(s): A41.9 - SEPSIS, UNSPECIFIED ORGANISM Qualifiers: Sepsis type: sepsis due to unspecified organism Qualified Code(s): A41.9 - Sepsis, unspecified organism (3) UTI (urinary tract infection) Code(s): N39.0 - URINARY TRACT INFECTION, SITE NOT SPECIFIED Qualifiers: Urinary tract infection type: acute cystitis Hematuria presence: without hematuria Qualified Code(s): N30.00 - Acute cystitis without hematuria (4) Acute renal failure Code(s): N17.9 - ACUTE KIDNEY FAILURE, UNSPECIFIED Qualifiers: Acute renal failure type: unspecified Qualified Code(s): N17.9 - Acute kidney failure, unspecified (5) CAD (coronary artery disease) Code(s): I25.10 - ATHSCL HEART DISEASE OF [place] CORONARY ARTERY W/O ANG PCTRS (6) Bacteremia due to Gram-negative bacteria Code(s): R78.81 - BACTEREMIA
--- NOTE | 2017-08-01 14:36 | PN ---
Progress Note (short form) - Note Progress Note: patient seen and examined in her room discussed with family- sister appetite poor cough + with eating as per nursing less diarrhea do not want rehab- reinforced again- still refusing by family want to take her home with VNS and home services Vital Signs Temp 98.0 F 08/01/17 13:49 Pulse 77 08/01/17 13:49 Resp 20 08/01/17 13:49 BP 107/71 08/01/17 13:49 Pulse Ox 96 08/01/17 09:00 Intake & Output 07/31/17 08/01/17 08/01/17 23:59 11:59 23:59 Intake Total 1450 800 100 Balance 1450 800 100 Weight 84 lb 6 oz Intake: IV 1000 800 D5-1/2NS+20 MEQ KCL - 20 1000 800 meq In 1,000 ml @ 100 mls /hr IV ASDIR MISTI Rx#: [id number] IVPB 100 Oral 350 100 Other: Voiding Method Incontinent Incontinent Incontinent # Unmeasured Voids Void 1 Bowel Movement Yes Yes: LOOSE # Bowel Movements 1 1 [facility] Active Medications Carbidopa/Levodopa (Sinemet 25/100 -) 2 each PO TID [facility] Last Admin: 08/01/17 14:13 Dose: 2 each Potassium Chloride/Dextrose/Sod Cl (D5-1/2ns+20 Meq Kcl -) 20 meq in 1,000 mls @ 100 mls/hr IV ASDIR MISTI Last Admin: 08/01/17 12:38 Dose: 100 mls/hr CEFTRIAXONE 1 G/50 ML PREMIX (Ceftriaxone 1 Gm-D5w Bag) 1 mls @ 100 mls/hr IVPB DAILY [facility] Last Admin: 08/01/17 12:25 Dose: 100 mls/hr Levothyroxine Sodium (Synthroid -) 50 mcg PO DAILY@0700 [facility] Last Admin: 08/01/17 06:09 Dose: 50 mcg Megestrol Acetate (Megace Oral Suspension -) 400 mg PO DAILY [facility] Last Admin: 08/01/17 09:55 Dose: 400 mg Vancomycin HCl (Vancomycin Oral Solution) 125 mg PO Q6HPO [facility] Last Admin: 08/01/17 12:25 Dose: 125 mg Current Medications Generic Name Dose Route Start Last Admin Trade Name Freq PRN Reason Stop Dose Admin Carbidopa/Levodopa 2 each 07/29/17 14:00 08/01/17 14:13 Sinemet 25/100 - PO 2 each TID MISTI Administration Potassium Chloride/Dextrose/Sod Cl 20 meq in 1,000 mls @ 100 mls/hr 07/29/17 12:17 08/01/17 12:38 D5-1/2ns+20 Meq Kcl - IV 100 mls/hr ASDIR MISTI Administration CEFTRIAXONE 1 G/50 ML PREMIX 1 mls @ 100 mls/hr 07/29/17 14:54 08/01/17 12:25 Ceftriaxone 1 Gm-D5w Bag IVPB 100 mls/hr DAILY MISTI Administration Levothyroxine Sodium 50 mcg 07/30/17 07:00 08/01/17 06:09 Synthroid - PO 50 mcg DAILY@0700 MISTI Administration Megestrol Acetate 400 mg 07/31/17 20:30 08/01/17 09:55 Megace Oral Suspension - PO 400 mg DAILY MISTI Administration Vancomycin HCl 125 mg 07/29/17 12:00 08/01/17 12:25 Vancomycin Oral Solution PO 125 mg Q6HPO MISTI Administration N- alert, confused CVS-s1s2 lungs-clear, poor effort abd- soft, nt, nd LE -no edema PLAN sepsis uti- WBC trending down - 16 today but with poor appetite coughing with feeding swallow evaluation Metabolic encephalopathy - multiple causes - UTI -cdiff - Worsening parkinsons dementia cdiff colitis positive PCR -PO VANCO -H/O cdiff years ago as per family -- she had diarrhea prior to arrival here in hospital -contact isolation rectal bleed -currently no active bleed -h/h stable -stool OB positive Hypernatremia -poor intake -on IVF FAMILY AWARE THAT Patient can get dehydrated at home and can be re-admitted currently trending down hypothyroidism on synthroid stable TSH Hypokalemia -due to diarrhea --replace k advanced directives -DNR/DNI contact isolation Cdiff family does not wish for aggressive intervention Deep tissue injury sacrum -- pt requires semi- electric hospital bed with an alternating pressure pad mattress. She has deep tissue injury in sacrum-- dressing placed. No open ulcer. She is contracted. Pt requires frequent body position changes not feasible with a regular bed to prevent pressure ulcers and alleviate pain . PT marck suggested She needs gel overlay mattress to reduce the risk of skin break down due to pt' s inability to make changes in body position due to limited mobility DVT ppx SCD Problem List - Problems (1) Sepsis Code(s): A41.9 - SEPSIS, UNSPECIFIED ORGANISM Qualifiers: Sepsis type: sepsis due to unspecified organism Qualified Code(s): A41.9 - Sepsis, unspecified organism (2) UTI (urinary tract infection) Code(s): N39.0 - URINARY TRACT INFECTION, SITE NOT SPECIFIED Qualifiers: Urinary tract infection type: acute cystitis Hematuria presence: without hematuria Qualified Code(s): N30.00 - Acute cystitis without hematuria (3) Acute renal failure Code(s): N17.9 - ACUTE KIDNEY FAILURE, UNSPECIFIED Qualifiers: Acute renal failure type: unspecified Qualified Code(s): N17.9 - Acute kidney failure, unspecified (4) CAD (coronary artery disease) Code(s): I25.10 - ATHSCL HEART DISEASE OF [place] CORONARY ARTERY W/O ANG PCTRS (5) Hypokalemia Code(s): E87.6 - HYPOKALEMIA (6) Hypothyroidism Code(s): E03.9 - HYPOTHYROIDISM, UNSPECIFIED (7) Leukocytosis Code(s): D72.829 - ELEVATED WHITE BLOOD CELL COUNT, UNSPECIFIED
[2017-08-02] MEDS: VANCOMYCIN 250 MG/5 ML ORAL SOLUTION PO SCH ×4 (05:57→23:30)
[2017-08-02] MEDS: CARBIDOPA/LEVODOPA 25/100 TABLET (FP) PO SCH ×3 (05:57→21:14)
[2017-08-02] MEDS: LEVOTHYROXINE NA 50 MCG TABLET (FP) PO SCH (06:07)
[2017-08-02 08:09] LABS: MCH 27.6 pg (25.7-33.7); MCHC 31.7 g/dl (32.0-36.0); MEAN CELL VOLUME 87.2 fl (80-96); PLATELET COUNT 111 K/MM3 (134-434); WHITE BLOOD COUNT 16.3 K/mm3 (4.0-10.0)
[2017-08-02 08:48] LABS: ANION GAP 7 (8-16); CO2 20 mmol/L (21-32); CREATININE 0.5 mg/dL (0.55-1.02); GLUCOSE,RANDOM 95 mg/dL (74-106); MAGNESIUM 1.3 mg/dL (1.8-2.4)
[2017-08-02 09:40] LABS: CALCIUM 6.6 mg/dL (8.5-10.1)
[2017-08-02] MEDS: MEGESTROL ACETATE 400 MG/10 ML UNIT DOSE CUP PO SCH (09:43)
[2017-08-02] MEDS: CEFTRIAXONE 1 G/50 ML PREMIX 1 ML IVPB SCH (09:45)
[2017-08-02] MEDS: D5-1/2NS+20 MEQ KCL - 20 MEQ/1,000 ML INFUS.BAG IV SCH ×2 (09:47→21:14)
[2017-08-02] MEDS ORDERED: MAGNESIUM SULF 50% (8.12 MEQ/2 ML-1 GM VIAL) IVPB ONE (11:45)
--- NOTE | 2017-08-02 11:47 | PN ---
Progress Note, Physician Chief Complaint: awake today has diarrhea appetite decreased - Current Medication List Current Medications: Active Medications Calcium Carbonate (Calcium Carb Oral Suspension -) 500 mg PO BID [facility] Carbidopa/Levodopa (Sinemet 25/100 -) 2 each PO TID [facility] Last Admin: 08/02/17 05:57 Dose: 2 each Potassium Chloride/Dextrose/Sod Cl (D5-1/2ns+20 Meq Kcl -) 20 meq in 1,000 mls @ 100 mls/hr IV ASDIR [facility] Last Admin: 08/02/17 09:47 Dose: 100 mls/hr CEFTRIAXONE 1 G/50 ML PREMIX (Ceftriaxone 1 Gm-D5w Bag) 1 mls @ 100 mls/hr IVPB DAILY [facility] Last Admin: 08/02/17 09:45 Dose: 100 mls/hr Levothyroxine Sodium (Synthroid -) 50 mcg PO DAILY@0700 [facility] Last Admin: 08/02/17 06:07 Dose: 50 mcg Megestrol Acetate (Megace Oral Suspension -) 400 mg PO DAILY [facility] Last Admin: 08/02/17 09:43 Dose: 400 mg Vancomycin HCl (Vancomycin Oral Solution) 125 mg PO Q6HPO [facility] Last Admin: 08/02/17 05:57 Dose: 125 mg - Objective Vital Signs: Vital Signs Temperature 97.9 F 08/02/17 10:00 Pulse Rate 82 08/02/17 10:00 Respiratory Rate 18 08/02/17 10:00 Blood Pressure 131/70 08/02/17 10:00 O2 Sat by Pulse Oximetry (%) 98 08/02/17 09:00 Constitutional: Yes: No Distress Cardiovascular: Yes: Regular Rate and Rhythm Respiratory: Yes: Diminished. No: Rales, Rhonchi Gastrointestinal: Yes: Normal Bowel Sounds, Soft. No: Distention, Tenderness Edema: No Labs: CBC, BMP 08/02/17 07:49 08/02/17 07:49 INR, PTT INR 1.36 (0.82-1.09) H 07/27/17 05:05 Problem List - Problems (1) Clostridium difficile colitis Code(s): A04.72 - ENTEROCOLITIS D/T CLOSTRIDIUM DIFFICILE, NOT SPCF RECUR (2) Sepsis Code(s): A41.9 - SEPSIS, UNSPECIFIED ORGANISM Qualifiers: Sepsis type: sepsis due to unspecified organism Qualified Code(s): A41.9 - Sepsis, unspecified organism (3) UTI (urinary tract infection) Code(s): N39.0 - URINARY TRACT INFECTION, SITE NOT SPECIFIED Qualifiers: Urinary tract infection type: acute cystitis Hematuria presence: without hematuria Qualified Code(s): N30.00 - Acute cystitis without hematuria (4) Acute renal failure Code(s): N17.9 - ACUTE KIDNEY FAILURE, UNSPECIFIED Qualifiers: Acute renal failure type: unspecified Qualified Code(s): N17.9 - Acute kidney failure, unspecified (5) CAD (coronary artery disease) Code(s): I25.10 - ATHSCL HEART DISEASE OF [place] CORONARY ARTERY W/O ANG PCTRS (6) Bacteremia due to Gram-negative bacteria Code(s): R78.81 - BACTEREMIA Assessment/Plan Plan sepsis - UTI -WBC trending down -pt improving, poor po intake-on megace -continue fluids --completed IV ceftriaxone 7 days-- will change to PO vantin per ID Metabolic encephalopathy due to worsening parkinsons dementia, due to sepsis, UTI , bacteremia, Cdiff Diarrhea -positive for Cdiff antigen -- PO Vanco -- Cdiff PCR postive -- WBC decreasing -- she h/o chronic diarrhea and as per sister, did not have this evaluated before-- will consult GI per sister request for chronic diarrhea -- she has electrolyte abnormalities due to chronic diarrhea rectal bleed -currently no active bleed -h/h stable -stool OB positive Hypernatremia, improving -- iv fluids -- replace potassium generalized abdominal pain -no further pain , she was tender generalized due to sepsis , bacteremia. Will dc CT hypothyroidism TSH normal Hypokalemia -due to diarrhea --replace potassium advanced directives -DNR/DNI contact isolation for Cdiff family does not wish for aggressive intervention Deep tissue injury sacrum -- pt requires semi- electric hospital bed with an alternating pressure pad mattress. She has deep tissue injury in sacrum-- dressing placed. No open ulcer. She is contracted. Pt requires frequent body position changes not feasible with a regular bed to prevent pressure ulcers and alleviate pain . PT marck suggested She needs gel overlay mattress to reduce the risk of skin break down due to pt' s inability to make changes in body position due to limited mobility DVT ppx SCD
[2017-08-02] MEDS: CALCIUM CARBONATE SUSPENSION - 500 MG/5 ML ML PO SCH ×2 (13:28→21:14)
--- NOTE | 2017-08-02 13:39 | CONSULT ---
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: Parkinson's, Seizure Cardiovascular: Yes: CAD, CHF (diastolic), HTN Gastrointestinal: Yes: Other (chronic diarrhea .) Endocrine: Yes: Hypothyroidism - Advance Directives Advance Directives: Yes: DNR - Smoking History Smoking history: Former smoker Have you smoked in the past 12 months: No Aproximately how many cigarettes per day: 0 If you are a former smoker, when did you quit?: Over 40 years ago - Alcohol/Substance Use Hx Alcohol Use: No History of Substance Use: reports: None - Social History History of Recent Travel: No History - Admission Reason For Visit: SEPTIC SHOCK DUE TO UNDERTERMINATED ORGANISM - Hearing Hearing: Impaired Hearing Aide: Yes With Patient: No Speech Evaluation - Communication Primary Language: TOGOLESE Communication: Yes: Simple Responses, Dysarthria Oral Expression Ability: Yes: Moderate Impairment - Speech Production Apraxia: No Able to Make Needs Known: Yes: Moderately Impaired (Simple responses.) - Speech Characteristics Voice Loudness: Mildly Soft/Quiet Voice Pitch: Yes: Moderatley Low, Pitch Breaks Voice Phonatory-based Quality: Yes: Quivering, Tremor, Weak Speech Pattern: Impaired Speech Clarity: < 50% Nasal Resonance: Normal Articulation: Yes: Imprecise Rate of Speech: Too Slow Voice, Other Observations: Yes: Mouth Breathing - Language/Auditory Comprehension Follows: Yes: 1 Stage Simple Commands Observation: Able to respond to yes/no queries: Yes, Yes/No Confusion: No, Comprehends Conversational Speech: Yes, Benefits from Slow Speech: Yes, Benefits from Repetiton: Yes, Benefits from Increased Volume of Speech: Yes ( may be TLINGIT & HAIDA) - Language/Verbal Expression Able to Respond to Simple Queries: Yes: Mildly Impaired Able to Communicate Wants and Needs: Yes: Moderately Impaired Functional Communication Status: Yes: Moderately Impaired Aware of Errors: Yes Attempts to Correct Errors: No Use of Gestures: Yes Written Expression: not examined Oral Expression: reduced Reading Comprehension: not examined Calculations: not examined Attention: Yes: Distractible, Minimal Impairment, Mild Impairment - Memory/Perception shelter Memory: Yes: Mildly Impaired Short Term Memory: Yes: Mildly Impaired - Swallow Evaluation/Bedside Assessment Current Nutritional Intake: Dysphagia Pureed, [place] Textured Liquids Oral Secretions: Yes: WFL Tracheostomy Present: No Patient on Ventilator: No Dentition: Yes: Edentulous (No dentures present for this examination) Facial Symmetry at Rest: Symmetrical Facial Symmetry on Retraction: Symmetrical Facial Movement: Controlled Sensation: Normal Facial Comment: appears [facility] for speech and swallowing purposes Jaw Position: Open at Rest (slightly) Against Resistance Opening: Normal Against Resistance Closing: Normal Pucker Lips: Weak Smile: Weak Lips, Comment: appears [facility] for speech and swallowing purposes Lingual Movement: Symmetric, Apraxic Lingual Speed of Movement: Reduced Lingual Movement Strgth Against Opposition: Reduced Lingual Comment: appears [facility] for speech and swallowing purposes Soft Palate Description: Normal Color Hard Palate Description: Normal Color Gag Reflex: Weak Velopharyngeal Movement: Normal Laryngeal Elevation: WFL Laryngeal Movement: Able to Palpate Needs Assistance: Yes Rate of Intake: Slow/Holding Bolus Size: Small Labial Seal: WFL Chewing: Impaired Oral Prep Time: Increased A-P Transit: Impaired (requires increased time) Pocketing: None Timing of Swallow: Delayed Odynophagia: Oral, Pharyngeal Coughing/Throat Clear: No Change in Voice: No Other Findings/Remarks: 86 yo female seen by SENIOR COURT OFFICE ASSISTANT for swallow eval to rule out dysphagia. Pt is verbal A &Ox1, somewhat cooperative. Pt presents with C-diff, UTI sepsis, ARF, and CAD. Pt referred to SENIOR COURT OFFICE ASSISTANT due to coughing with thin liquids. Pt oral motor exam revealed edentulous status with reduced strength with cheeks and tongue. Reduced vocal quality and airway protection. Pt given po trials of pureed only secondary to dental status with total assistance revealed reduced oral intake, labored and delayed bolus formation and transport. Pharyngeal swallow is delayed ( 2-4 seconds) with no cough observed at this time. Pt given po trials of thin and thicken liquids with total assistance revealed reduced oral intake, adequate labial containment, bolus formation and transport. Pharyngeal swallow is delayed ( 2-4 seconds) with no cough observed at this time. Limited study as pt refused subsequent solid and liquids trials. Recommendations - Speech Evaluation, Impression/Plan Impression: Pt presents with reduce vocal quality and airway protection. Pt demostrates mild to moderate flaquito-pharyngeal dysphagia for purees and liquids. No s/s of aspiration at this time but limited study as pt refused additional trials of solids and thin liquids. 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 Short Term Goals: tolerate pureed and nectar thicken liquids without s/s of aspiration - Dysphagia Impressions/Plan Swallowing Skills: Impaired Dysphagia Impressions: Moderate Impairment, Refused PO Trials (after 2 pureed trial and 3 liquid trials), Suspect Aspiration *Silent aspiration: cannot be R/O at bedside Dysphagia Treatment Plan: Small Bites, Safe Rate, 1/2 tsp. at a time, Elevate HOB during feed Dysphagia Evaluation Summary: Pt is able to tolerate pureed and nectar thicken liquids without s/s of aspiration at this time. Observe standard aspiration precautions. Provide small meals as pt does not eat large meals in one sitting. Crush meds in pureed or applesauce. Consider nutritional supplements for weight maintenance. Results given verbally to discharge coordinator Steven and to pcp via chart. SENIOR COURT OFFICE ASSISTANT to f/up for diet tolerance. - Recommendations Diet Consistency: Dysphagia Pureed Medication Administration: Crushed with applesauce Liquids: [place] Thick Supplement: Ensure, Ensure Pudding
--- NOTE | 2017-08-02 16:41 | CON.GI ---
Consult Consult Specialty:: Gastroenterology Referred by:: Dr. Minoo Cueva Reason for Consultation:: Diarrhea - History of Present Illness Chief Complaint: Patient has dementia and offers no complaints History of Present Illness: 86F admitted with Klebsiella bacteremia from the urinary source with leukemoid reaction has chronic diarrhea. Her sister tells me that she has had this diarrhea since her abdominal surgery. There was also a question of bloody stool at home. No overt bleeding has been noted in the hospital. She has had 3 loose BMs today. I did a colonoscopy in 07/14 when biopsies of the ileum and right colon failed to reveal microscopic colitis and led to the removal of a descending colon adenoma. Her sister tells me that she has recurring C. diff infections. She is being empirically treated for C diff with Vanco. Nandini's sister does not want [place] subjected to a repeat colonoscopy. Nandini was never and has no children. 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 Colon adenoma rmeoved 2011.) Hepatobiliary: Yes: Cholelithiasis Renal/: Yes: UTI Infectious Disease: Yes: C-Diff Psych: Yes: Depression Endocrine: Yes: Hypothyroidism - Past Surgical History Past Surgical History: Yes: Colonoscopy (07/18/12 = adenoma removed, diverticulosis seen), Hernia Repair (Nisesen fundoplication), Upper Endoscopy (1 ) - Alcohol/Substance Use Hx Alcohol Use: No History of Substance Use: reports: None - Smoking History Smoking history: Former smoker Have you smoked in the past 12 months: No Aproximately how many cigarettes per day: 0 If you are a former smoker, when did you quit?: Over 40 years ago - Social History Usual Living Arrangement: With Significant Other ADL: Family Assistance 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 History of Recent Travel: No Home Medications - Allergies Allergies/Adverse Reactions: Allergies Allergy/AdvReac Type Severity Reaction Status Date / Time No Known Drug Allergies Allergy Verified 07/26/17 13:41 - Home Medications Home Medications: Ambulatory Orders Divalproex [Depakote -] 250 mg PO BID 08/18/15 Levothyroxine [Synthroid -] 50 mcg PO DAILY 08/18/15 Risperidone 0.5 mg PO HS 08/18/15 Sertraline HCl [Zoloft -] 100 mg PO DAILY 08/18/15 Carbidopa/Levodopa [Carbidopa-Levo 25-100 Tab] 2 each PO TID 10/31/15 Furosemide [Lasix -] 20 mg PO DAILY 10/31/15 Docusate Sodium [Colace -] 100 mg PO BID PRN #0 capsule 11/07/15 Lactobacillus Acidophilus [Bacid -] 1 tab PO BID #100 tab 11/07/15 Family Disease History - Family Disease History Family Disease History: CA: Father (mesothelioma and laryngeal tumors), Brother (colon cancer), Sister (PPM, lung cancer), Other: Mother ( CVA), Sister Review of Systems Unable to obtain ROS, reason: dementia Physical Exam-GI Vital Signs: Vital Signs Temperature 97.2 F L 08/02/17 14:17 Pulse Rate 87 08/02/17 14:17 Respiratory Rate 18 08/02/17 14:17 Blood Pressure 117/43 08/02/17 14:17 O2 Sat by Pulse Oximetry (%) 98 08/02/17 09:00 CBC,CMP WBC 16.3 K/mm3 (4.0-10.0) H 08/02/17 07:49 RBC 3.86 M/mm3 (3.60-5.2) 08/02/17 07:49 Hgb 10.7 GM/dL (10.7-15.3) 08/02/17 07:49 Hct 33.7 % (32.4-45.2) 08/02/17 07:49 MCV 87.2 fl (80-96) 08/02/17 07:49 MCH 27.6 pg (25.7-33.7) 08/02/17 07:49 MCHC 31.7 g/dl (32.0-36.0) L 08/02/17 07:49 RDW 17.0 % (11.6-15.6) H 08/02/17 07:49 Plt Count 111 K/MM3 (134-434) L 08/02/17 07:49 MPV 10.0 fl (7.5-11.1) 08/02/17 07:49 Total Counted 100 07/28/17 05:20 Neutrophils % 78.9 % (42.8-82.8) 08/01/17 06:45 Neutrophils % (Manual) 42.0 % (42.8-82.8) L D 07/28/17 05:20 Band Neutrophils % 43.0 % 07/28/17 05:20 Lymphocytes % 16.4 % (8-40) 08/01/17 06:45 Lymphocytes % (Manual) 4.0 % (8-40) L D 07/28/17 05:20 Monocytes % 3.7 % (3.8-10.2) L 08/01/17 06:45 Monocytes % (Manual) 2 % (3.8-10.2) L D 07/28/17 05:20 Eosinophils % 0.7 % (0-4.5) 08/01/17 06:45 Basophils % 0.3 % (0-2.0) 08/01/17 06:45 Metamyelocytes 5 % (0-2) H 07/28/17 05:20 Manual Slide Review No Result Required. 07/28/17 05:20 Platelet Estimate Adequate 07/28/17 05:20 Platelet Comment No clumping noted 07/27/17 05:05 Sodium 150 mmol/L (136-145) H 08/02/17 07:49 Potassium 4.0 mmol/L (3.5-5.1) D 08/02/17 07:49 Chloride 123 mmol/L (98-107) H 08/02/17 07:49 Carbon Dioxide 20 mmol/L (21-32) L 08/02/17 07:49 Anion Gap 7 (8-16) L 08/02/17 07:49 BUN 8 mg/dL (7-18) D 08/02/17 07:49 Creatinine 0.5 mg/dL (0.55-1.02) L D 08/02/17 07:49 Creat Clearance w eGFR > 60 (>60) 08/01/17 06:45 Random Glucose 95 mg/dL (74-106) D 08/02/17 07:49 Lactic Acid 2.7 mmol/L (0.4-2.0) H* 07/27/17 05:05 Calcium 6.6 mg/dL (8.5-10.1) L* 08/02/17 07:49 Phosphorus 2.5 mg/dL (2.5-4.9) 07/27/17 05:05 Magnesium 1.3 mg/dL (1.8-2.4) L D 08/02/17 07:49 Total Bilirubin 0.6 mg/dL (0.2-1.0) D 08/01/17 06:45 AST 4 U/L (15-37) L D 08/01/17 06:45 ALT < 6 U/L (12-78) L 08/01/17 06:45 Alkaline Phosphatase 88 U/L (45-117) 08/01/17 06:45 Creatine Kinase 53 IU/L (26-192) 07/26/17 14:50 Troponin I 0.03 ng/ml (0.00-0.05) 07/26/17 14:50 B-Natriuretic Peptide 7491.96 pg/ml (5-450) H 07/26/17 14:50 Total Protein 3.9 g/dl (6.4-8.2) L 08/01/17 06:45 Albumin 1.6 g/dl (3.4-5.0) L 08/01/17 06:45 TSH 1.14 uIU/ml (0.358-3.74) D 07/27/17 05:05 Current Medications Generic Name Dose Route Start Last Admin Trade Name Vahidq PRN Reason Stop Dose Admin Calcium Carbonate 500 mg 08/02/17 11:00 08/02/17 13:28 Calcium Carb Oral Suspension - PO 500 mg BID MISTI Administration Carbidopa/Levodopa 2 each 07/29/17 14:00 08/02/17 13:30 Sinemet 25/100 - PO 2 each TID MISTI Administration Cefpodoxime Proxetil 100 mg 08/02/17 22:00 Vantin (Nf) - PO BID MISTI Potassium Chloride/Dextrose/Sod Cl 20 meq in 1,000 mls @ 100 mls/hr 07/29/17 12:17 08/02/17 09:47 D5-1/2ns+20 Meq Kcl - IV 100 mls/hr ASDIR MISTI Administration Levothyroxine Sodium 50 mcg 07/30/17 07:00 08/02/17 06:07 Synthroid - PO 50 mcg DAILY@0700 MISTI Administration Megestrol Acetate 400 mg 07/31/17 20:30 08/02/17 09:43 Megace Oral Suspension - PO 400 mg DAILY MISTI Administration Vancomycin HCl 125 mg 07/29/17 12:00 08/02/17 11:57 Vancomycin Oral Solution PO 125 mg Q6HPO MISTI Administration Constitutional: Yes: Anxious, Cachectic Eyes: Yes: Conjunctiva Clear HENT: Yes: Normocephalic Neck: Yes: Trachea Midline Cardiovascular: Yes: Regular Rate and Rhythm Respiratory: Yes: CTA Bilaterally Gastrointestinal Inspection: Yes: Scars (healed vertical epigastirc incision) ...Auscultate: Yes: Normoactive Bowel Sounds ...Palpate: Yes: Soft, Other (nontender) ...Rectal Exam: Yes: Guaiac Positive (loose brown guaiac positive stool) Extremities: Yes: WNL Edema: No Neurological: Yes: Confusion Labs: CBC, BMP 08/02/17 07:49 08/02/17 07:49 INR, PTT INR 1.36 (0.82-1.09) H 07/27/17 05:05 Laboratory Tests 07/28/17 07/30/17 08/01/17 05:20 06:45 06:45 WBC 34.9 H* 22.3 H Hgb 11.9 Total Bilirubin 0.6 D AST 4 L D ALT < 6 L Alkaline Phosphatase 88 Albumin 1.6 L 08/02/17 07:49 WBC 16.3 H Hgb 10.7 Total Bilirubin AST ALT Alkaline Phosphatase Albumin Problem List - Problems (1) Colon adenoma Code(s): D12.6 - BENIGN NEOPLASM OF COLON, UNSPECIFIED (2) Diverticula of colon Code(s): K57.30 - DVRTCLOS OF LG INT W/O PERFORATION OR ABSCESS W/O BLEEDING (3) Chronic diarrhea Assessment/Plan: I will get an FUA to exclude paradoxical diarrhea due to a high fecal impaction. Will add metamucil to give bulk to the stool and if necessary will start peptol bismol. Will check for celiac disease and get a protein electrophoresis to look for amyloidosis and VIP and gastrin levels. Code(s): K52.9 - NONINFECTIVE GASTROENTERITIS AND COLITIS, UNSPECIFIED (4) Anemia Assessment/Plan: If anemia worsens will need to consider doing an EGD. Colonoscopy has been declined. Code(s): D64.9 - ANEMIA, UNSPECIFIED
[2017-08-02] MEDS ORDERED: PT OWN MED DRAWER 7, Y5N ONE (21:02)
[2017-08-02] MEDS: CEFPODOXIME PROXETIL 100 MG TABLET PO SCH (22:28)
[2017-08-03] MEDS: CARBIDOPA/LEVODOPA 25/100 TABLET (FP) PO SCH ×3 (06:10→21:29)
[2017-08-03] MEDS: VANCOMYCIN 250 MG/5 ML ORAL SOLUTION PO SCH ×4 (06:10→23:46)
[2017-08-03] MEDS: LEVOTHYROXINE NA 50 MCG TABLET (FP) PO SCH (06:10)
[2017-08-03] MEDS: D5-1/2NS+20 MEQ KCL - 20 MEQ/1,000 ML INFUS.BAG IV SCH ×2 (06:12→16:25)
[2017-08-03 08:42] LABS: BASOPHIL 0.5 % (0-2.0); EOSINOPHIL 1.2 % (0-4.5); MCH 27.7 pg (25.7-33.7); MCHC 32.1 g/dl (32.0-36.0); MEAN CELL VOLUME 86.4 fl (80-96); MEAN PLT VOLUME 9.9 fl (7.5-11.1); NEUTROPHILS 73.8 % (42.8-82.8); PLATELET COUNT 168 K/MM3 (134-434); RDW 17.2 % (11.6-15.6); WHITE BLOOD COUNT 15.2 K/mm3 (4.0-10.0)
[2017-08-03 08:59] LABS: ALBUMIN 1.8 g/dl (3.4-5.0); ANION GAP 6 (8-16); CO2 25 mmol/L (21-32); CREATININE 0.5 mg/dL (0.55-1.02); GLUCOSE,RANDOM 92 mg/dL (74-106); SGOT/AST 8 U/L (15-37); SGPT/ALT < 6 U/L (12-78)
[2017-08-03 09:01] LABS: ALK PHOS 103 U/L (45-117); BILIRUBIN,TOTAL 0.4 mg/dL (0.2-1.0); TOT PROT 4.3 g/dl (6.4-8.2)
[2017-08-03 09:28] LABS: C-REACTIVE PROTEIN 1.5 MG/DL (0.00-0.3)
[2017-08-03] MEDS ORDERED: PT OWN MED DRAWER 7, Y5N ONE (09:49)
[2017-08-03 09:54] LABS: FERRITIN 239.986 ng/ml (6.9-282.5)
[2017-08-03] MEDS: MEGESTROL ACETATE 400 MG/10 ML UNIT DOSE CUP PO SCH (09:56)
[2017-08-03] MEDS: CEFPODOXIME PROXETIL 100 MG TABLET PO SCH ×2 (09:57→21:31)
[2017-08-03] MEDS: CALCIUM CARBONATE SUSPENSION - 500 MG/5 ML ML PO SCH ×2 (09:57→21:30)
--- NOTE | 2017-08-03 13:15 | PN ---
Progress Note (short form) - Note Progress Note: Pt seen/ examined chart reviewed chronic ill appearance. no distress. denies pain. afebrile having loose bm sister at bedside gi consult noted/ appreciated Vital Signs Temp 98.5 F 08/03/17 05:00 Pulse 82 08/03/17 05:00 Resp 16 08/03/17 05:00 BP 121/70 08/03/17 05:00 Pulse Ox 98 08/02/17 21:00 Intake & Output 08/02/17 08/03/17 08/03/17 23:59 11:59 23:59 Intake Total 1220 1200 Balance 1220 1200 Weight 76 lb Intake: IV 1000 1200 D5-1/2NS+20 MEQ KCL - 20 1000 1200 meq In 1,000 ml @ 100 mls /hr IV ASDIR [facility] Rx#: [id number] IVPB 150 Oral 70 Other: Voiding Method Incontinent # Unmeasured Voids Void 3 Bowel Movement Yes Weight Measurement Method [facility] Active Medications Calcium Carbonate (Calcium Carb Oral Suspension -) 500 mg PO BID [facility] Last Admin: 08/03/17 09:57 Dose: 500 mg Carbidopa/Levodopa (Sinemet 25/100 -) 2 each PO TID [facility] Last Admin: 08/03/17 06:10 Dose: 2 each Cefpodoxime Proxetil (Vantin (Nf) -) 100 mg PO BID [facility] Last Admin: 08/03/17 09:57 Dose: 100 mg Potassium Chloride/Dextrose/Sod Cl (D5-1/2ns+20 Meq Kcl -) 20 meq in 1,000 mls @ 100 mls/hr IV ASDIR [facility] Last Admin: 08/03/17 06:12 Dose: 100 mls/hr Levothyroxine Sodium (Synthroid -) 50 mcg PO DAILY@0700 [facility] Last Admin: 08/03/17 06:10 Dose: 50 mcg Megestrol Acetate (Megace Oral Suspension -) 400 mg PO DAILY [facility] Last Admin: 08/03/17 09:56 Dose: 400 mg Vancomycin HCl (Vancomycin Oral Solution) 125 mg PO Q6HPO [facility] Last Admin: 08/03/17 06:10 Dose: 125 mg CBC, BMP 08/03/17 06:00 08/03/17 08:00 Physical Exam. Constitutional: Yes: No Distress. Comfortable. looks weak. Cardiovascular: Yes: Regular Rate and Rhythm Respiratory: Yes: Diminished. No: Rales, Rhonchi Gastrointestinal: Yes: Normal Bowel Sounds, Soft. No: Distention, Tenderness Edema: No Problem List - Problems (1) Clostridium difficile colitis Code(s): A04.72 - ENTEROCOLITIS D/T CLOSTRIDIUM DIFFICILE, NOT SPCF RECUR (2) Sepsis Code(s): A41.9 - SEPSIS, UNSPECIFIED ORGANISM Qualifiers: Sepsis type: sepsis due to unspecified organism Qualified Code(s): A41.9 - Sepsis, unspecified organism (3) UTI (urinary tract infection) Code(s): N39.0 - URINARY TRACT INFECTION, SITE NOT SPECIFIED Qualifiers: Urinary tract infection type: acute cystitis Hematuria presence: without hematuria Qualified Code(s): N30.00 - Acute cystitis without hematuria (4) Acute renal failure Code(s): N17.9 - ACUTE KIDNEY FAILURE, UNSPECIFIED Qualifiers: Acute renal failure type: unspecified Qualified Code(s): N17.9 - Acute kidney failure, unspecified (5) CAD (coronary artery disease) Code(s): I25.10 - ATHSCL HEART DISEASE OF [place] CORONARY ARTERY W/O ANG PCTRS (6) Bacteremia due to Gram-negative bacteria Code(s): R78.81 - BACTEREMIA Assessment/Plan Clinically stable continue present care. c diff precautions abx f/u labs pt is dnr/ di. discussed with pts sister. will follow.
[2017-08-04] MEDS: D5-1/2NS+20 MEQ KCL - 20 MEQ/1,000 ML INFUS.BAG IV SCH ×4 (00:45→20:01)
[2017-08-04] MEDS: LEVOTHYROXINE NA 50 MCG TABLET (FP) PO SCH (06:17)
[2017-08-04] MEDS: CARBIDOPA/LEVODOPA 25/100 TABLET (FP) PO SCH ×3 (06:17→21:38)
[2017-08-04] MEDS: VANCOMYCIN 250 MG/5 ML ORAL SOLUTION PO SCH ×4 (06:17→23:44)
[2017-08-04 06:36] LABS: SERUM IRON 87 ug/dL (27-139); TOTAL IRON BINDING CAPACITY 139 ug/dL (250-450); UIBC 52 ug/dL (118-369)
[2017-08-04 08:28] LABS: ALBUMIN 1.7 g/dl (3.4-5.0); ANION GAP 7 (8-16); BILIRUBIN,TOTAL 0.5 mg/dL (0.2-1.0); CALCIUM 7.1 mg/dL (8.5-10.1); CO2 24 mmol/L (21-32); GLUCOSE,RANDOM 91 mg/dL (74-106); SGOT/AST 9 U/L (15-37); SGPT/ALT < 6 U/L (12-78)
[2017-08-04 08:29] LABS: ALK PHOS 104 U/L (45-117); CREATININE 0.4 mg/dL (0.55-1.02); TOT PROT 4.2 g/dl (6.4-8.2)
[2017-08-04 08:35] LABS: BASOPHIL 0.3 % (0-2.0); EOSINOPHIL 1.7 % (0-4.5); MCHC 32.2 g/dl (32.0-36.0); MEAN CELL VOLUME 87.1 fl (80-96); MEAN PLT VOLUME 9.9 fl (7.5-11.1); NEUTROPHILS 73.2 % (42.8-82.8); PLATELET COUNT 186 K/MM3 (134-434); RDW 16.9 % (11.6-15.6); WHITE BLOOD COUNT 12.5 K/mm3 (4.0-10.0)
[2017-08-04] MEDS ORDERED: PT OWN MED DRAWER 7, Y5N ONE ×2 (09:04→21:36)
[2017-08-04] MEDS: CALCIUM CARBONATE SUSPENSION - 500 MG/5 ML ML PO SCH ×2 (09:07→21:38)
[2017-08-04] MEDS: MEGESTROL ACETATE 400 MG/10 ML UNIT DOSE CUP PO SCH (09:17)
[2017-08-04] MEDS: CEFPODOXIME PROXETIL 100 MG TABLET PO SCH ×2 (09:17→21:37)
--- NOTE | 2017-08-04 12:19 | PN ---
Progress Note (short form) - Note Progress Note: Pt seen/ examined chronic ill appearance. no distress. denies pain. afebrile sister at bedside-- feeding her fua- no stool retention Vital Signs Temp 98.8 F 08/04/17 06:00 Pulse 81 08/04/17 06:00 Resp 20 08/04/17 06:00 BP 109/56 08/04/17 06:00 Pulse Ox 98 08/03/17 20:35 Intake & Output 08/03/17 08/04/17 08/04/17 23:59 11:59 23:59 Intake Total 1125 1200 Output Total 0 Balance 1125 1200 Weight 75 lb 4.8 oz Intake: IV 1000 1200 D5-1/2NS+20 MEQ KCL - 20 1000 1200 meq In 1,000 ml @ 100 mls /hr IV ASDIR [facility] Rx#: [id number] Oral 125 Output: Urine 0 Void 0 Other: Voiding Method Incontinent # Unmeasured Voids Void 3 Bowel Movement Yes # Bowel Movements 0 Weight Measurement Method Built in [facility] Active Medications Calcium Carbonate (Calcium Carb Oral Suspension -) 500 mg PO BID [facility] Last Admin: 08/03/17 09:57 Dose: 500 mg Carbidopa/Levodopa (Sinemet 25/100 -) 2 each PO TID [facility] Last Admin: 08/03/17 06:10 Dose: 2 each Cefpodoxime Proxetil (Vantin (Nf) -) 100 mg PO BID [facility] Last Admin: 08/03/17 09:57 Dose: 100 mg Potassium Chloride/Dextrose/Sod Cl (D5-1/2ns+20 Meq Kcl -) 20 meq in 1,000 mls @ 100 mls/hr IV ASDIR [facility] Last Admin: 08/03/17 06:12 Dose: 100 mls/hr Levothyroxine Sodium (Synthroid -) 50 mcg PO DAILY@0700 [facility] Last Admin: 08/03/17 06:10 Dose: 50 mcg Megestrol Acetate (Megace Oral Suspension -) 400 mg PO DAILY [facility] Last Admin: 08/03/17 09:56 Dose: 400 mg Vancomycin HCl (Vancomycin Oral Solution) 125 mg PO Q6HPO [facility] Last Admin: 08/03/17 06:10 Dose: 125 mg CBC, BMP 08/04/17 06:00 08/04/17 06:00 Physical Exam. Constitutional: Yes: No Distress. Comfortable. weak Cardiovascular: Yes: Regular Rate and Rhythm Respiratory: Yes: Diminished. Gastrointestinal: Yes: Normal Bowel Sounds, Soft. No: Distention, Tenderness Edema: No Problem List - Problems (1) Clostridium difficile colitis Code(s): A04.72 - ENTEROCOLITIS D/T CLOSTRIDIUM DIFFICILE, NOT SPCF RECUR (2) Sepsis Code(s): A41.9 - SEPSIS, UNSPECIFIED ORGANISM Qualifiers: Sepsis type: sepsis due to unspecified organism Qualified Code(s): A41.9 - Sepsis, unspecified organism (3) UTI (urinary tract infection) Code(s): N39.0 - URINARY TRACT INFECTION, SITE NOT SPECIFIED Qualifiers: Urinary tract infection type: acute cystitis Hematuria presence: without hematuria Qualified Code(s): N30.00 - Acute cystitis without hematuria (4) Acute renal failure Code(s): N17.9 - ACUTE KIDNEY FAILURE, UNSPECIFIED Qualifiers: Acute renal failure type: unspecified Qualified Code(s): N17.9 - Acute kidney failure, unspecified (5) CAD (coronary artery disease) Code(s): I25.10 - ATHSCL HEART DISEASE OF [place] CORONARY ARTERY W/O ANG PCTRS (6) Bacteremia due to Gram-negative bacteria Code(s): R78.81 - BACTEREMIA Assessment/Plan Clinically stable continue present care. c diff precautions abx overall condition poor pt is dnr/ di. discussed with pts sister. wants to take home will discuss with corrections caseworker/ pallative care team. continue present care for now. will follow.
[2017-08-05] MEDS: LEVOTHYROXINE NA 50 MCG TABLET (FP) PO SCH (05:59)
[2017-08-05] MEDS: CARBIDOPA/LEVODOPA 25/100 TABLET (FP) PO SCH ×3 (05:59→22:29)
[2017-08-05] MEDS: D5-1/2NS+20 MEQ KCL - 20 MEQ/1,000 ML INFUS.BAG IV SCH ×2 (06:00→14:49)
[2017-08-05] MEDS: VANCOMYCIN 250 MG/5 ML ORAL SOLUTION PO SCH (06:00)
[2017-08-05] MEDS: MEGESTROL ACETATE 400 MG/10 ML UNIT DOSE CUP PO SCH (09:55)
[2017-08-05] MEDS: CALCIUM CARBONATE SUSPENSION - 500 MG/5 ML ML PO SCH ×2 (09:56→22:29)
[2017-08-05] MEDS: CEFPODOXIME PROXETIL 100 MG TABLET PO SCH ×2 (09:56→22:30)
--- NOTE | 2017-08-05 11:31 | DS ---
Physical Examination Vital Signs: Vital Signs Temperature 97.7 F 08/05/17 05:42 Pulse Rate 102 H 08/05/17 05:42 Respiratory Rate 0 L 08/05/17 05:42 Blood Pressure 134/62 08/05/17 05:42 O2 Sat by Pulse Oximetry (%) 98 08/04/17 21:00 Constitutional: Yes: No Distress, Calm Cardiovascular: Yes: Regular Rate and Rhythm Respiratory: Yes: Diminished Gastrointestinal: Yes: Normal Bowel Sounds, Soft. No: Distention, Tenderness Edema: No Labs: CBC, BMP 08/04/17 06:00 08/04/17 06:00 Discharge Summary Reason For Visit: SEPTIC SHOCK DUE TO UNDERTERMINATED ORGANISM Current Active Problems Anemia (Acute) Bacteremia due to Gram-negative bacteria (Acute) Clostridium difficile colitis (Acute) Colon adenoma (Acute) Diverticula of colon (Acute) Sepsis (Acute) UTI (urinary tract infection) (Acute) Hospital Course: Admitted for septic shock , dehydration , Klebsiella pneumo sepsis and Cdiff colitis She was initially in ICU and transferred to the floors IV fluids and IV antibiotics continued to have diarrhea -- chronic diarrhea as per sister Seen by ID and Pulmonary , GI FUA-- no impaction hypernatremia corrected with fluids Blood work for celiac disease negative Hpylori and Immunofixation pending-- recommend outpt follow up She is currently on PO antibiotics for UTI and bactemia and PO Vanco for Cdiff WBD trending down Sister is primary HCP pt has poor po intake sister aware that she has poor po intake and she has froilan started on Appetite stimulant She will need VNS on discharge Spoke to sister at length yesterday that rehospitalization is possible as pt not eating well Sister would like to take her home in the hopes of improving appetite in a familiar environment . But she is aware that if does not improve, chance of returning to hospital is likely but sister did not want that -- she understands that if pt does not improve then she will need to speak to VNS to arrange for comfort care Condition: Improved - Instructions Diet, Activity, Other Instructions: Vanco liquid for 14 days more, Vantin for 5 more days. Metamucil for stool bulk , call DR Banks 's office for results Use a sippie cup for liquids, Magic cup ice cream, Ensure Compact. Referrals: Donald Banks MD [Primary Care Provider] - Disposition: HOME - Home Medications Comprehensive Discharge Medication List: Ambulatory Orders Divalproex [Depakote -] 250 mg PO BID 08/18/15 Levothyroxine [Synthroid -] 50 mcg PO DAILY 08/18/15 Risperidone 0.5 mg PO HS 08/18/15 Sertraline HCl [Zoloft -] 100 mg PO DAILY 08/18/15 Carbidopa/Levodopa [Carbidopa-Levo 25-100 Tab] 2 each PO TID 10/31/15 Furosemide [Lasix -] 20 mg PO DAILY 10/31/15 Docusate Sodium [Colace -] 100 mg PO BID PRN #0 capsule 11/07/15 Lactobacillus Acidophilus [Bacid -] 1 tab PO BID #100 tab 11/07/15
--- NOTE | 2017-08-05 12:07 | PN ---
Progress Note (short form) - Note Progress Note: No acute events overnight. NAD. Intake & Output 08/02/17 08/03/17 08/04/17 08/05/17 23:59 23:59 23:59 23:59 Intake Total 2395 2325 2863 1200 Output Total 200 Balance 2395 2325 2863 1000 Weight 75 lb 14.4 oz 76 lb 75 lb 4.8 oz 74 lb 3 oz Last Vital Signs Temp Pulse Resp BP Pulse Ox 97.7 F 102 H 0 L 134/62 98 08/05/17 05:42 08/05/17 05:42 08/05/17 05:42 08/05/17 05:42 08/04/17 21:00 Active Medications Calcium Carbonate (Calcium Carb Oral Suspension -) 500 mg PO BID [facility] Last Admin: 08/05/17 09:56 Dose: 500 mg Carbidopa/Levodopa (Sinemet 25/100 -) 2 each PO TID [facility] Last Admin: 08/05/17 05:59 Dose: 2 each Cefpodoxime Proxetil (Vantin (Nf) -) 100 mg PO BID [facility] Last Admin: 08/05/17 09:56 Dose: 100 mg Potassium Chloride/Dextrose/Sod Cl (D5-1/2ns+20 Meq Kcl -) 20 meq in 1,000 mls @ 100 mls/hr IV ASDIR [facility] Last Admin: 08/05/17 06:00 Dose: 100 mls/hr Levothyroxine Sodium (Synthroid -) 50 mcg PO DAILY@0700 [facility] Last Admin: 08/05/17 05:59 Dose: 50 mcg Megestrol Acetate (Megace Oral Suspension -) 400 mg PO DAILY [facility] Last Admin: 08/05/17 09:55 Dose: 400 mg PE: Gen; cachetic, elderly woman, NAD PULM: clear anterior, no distress CV; irregular, tachy, III/ BUSHRA ABD: soft, ND, (+) BS EXT: no edema, very thin, fail Neuro: agitated, altered, non focal IMP: Severe sepsis, AMS (acute on chronic) WILBERT leukocytosis PLAN: O2 as needed Aspiration Precautions D/C planning Dr Bryson
--- NOTE | 2017-08-05 15:56 | PN ---
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
--- NOTE | 2017-08-05 15:59 | PN ---
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 Consider spouted sippy-cup for home use. Ensure compact, Magic cup, Ensure pudding. EMR notes/ Palliative care note reviewed.
[2017-08-05] MEDS ORDERED: PT OWN MED DRAWER 7, Y5N ONE (22:00)
[2017-08-06] MEDS: CARBIDOPA/LEVODOPA 25/100 TABLET (FP) PO SCH (06:08)
[2017-08-06] MEDS: LEVOTHYROXINE NA 50 MCG TABLET (FP) PO SCH (06:08)
[2017-08-06] MEDS: D5-1/2NS+20 MEQ KCL - 20 MEQ/1,000 ML INFUS.BAG IV SCH (06:12)
[2017-08-06 06:17] VITALS: TEMP 97.7
[2017-08-06] MEDS: MEGESTROL ACETATE 400 MG/10 ML UNIT DOSE CUP PO SCH (10:15)
[2017-08-06] MEDS: CALCIUM CARBONATE SUSPENSION - 500 MG/5 ML ML PO SCH (10:15)
[2017-08-06] MEDS: CEFPODOXIME PROXETIL 100 MG TABLET PO SCH (10:15)
--- NOTE | 2017-08-06 10:37 | PN ---
Progress Note (short form) - Note Progress Note: Pt examined , no complaints Vital Signs - 24 hr 08/05/17 08/05/17 08/05/17 15:40 18:00 21:00 Temperature 98.2 F 97.6 F Pulse Rate 97 H 88 Respiratory 17 18 Rate Blood Pressure 139/62 110/59 O2 Sat by Pulse 97 Oximetry (%) 08/05/17 08/06/17 08/06/17 22:00 06:00 09:00 Temperature 97.5 F L 97.7 F Pulse Rate 86 71 Respiratory 18 18 Rate Blood Pressure 140/55 110/52 O2 Sat by Pulse 97 Oximetry (%) 08/06/17 08/06/17 08/06/17 10:00 13:08 13:09 Temperature Pulse Rate 74 98 H 98 H Respiratory 20 Rate Blood Pressure 118/62 O2 Sat by Pulse 100 100 Oximetry (%) Current Medications Generic Name Dose Route Start Last Admin Trade Name Freq PRN Reason Stop Dose Admin Calcium Carbonate 500 mg 08/02/17 11:00 08/06/17 10:15 Calcium Carb Oral Suspension - PO 500 mg BID [facility] Administration Carbidopa/Levodopa 2 each 07/29/17 14:00 08/06/17 06:08 Sinemet 25/100 - PO 2 each TID [facility] Administration Cefpodoxime Proxetil 100 mg 08/02/17 22:00 08/06/17 10:15 Vantin (Nf) - PO 100 mg BID [facility] Administration Potassium Chloride/Dextrose/Sod Cl 20 meq in 1,000 mls @ 100 mls/hr 07/29/17 12:17 08/06/17 06:12 D5-1/2ns+20 Meq Kcl - IV 100 mls/hr ASDIR [facility] Administration Levothyroxine Sodium 50 mcg 07/30/17 07:00 08/06/17 06:08 Synthroid - PO 50 mcg DAILY@0700 [facility] Administration Megestrol Acetate 400 mg 07/31/17 20:30 08/06/17 10:15 Megace Oral Suspension - PO 400 mg DAILY [facility] Administration Laboratory Results - last 24 hr 08/03/17 08:00 Tiss Transglutamin IgG < 2 Tiss Transglutamin IgA < 2 S1 s2 RRR Lungs decreased Abd- soft, NT No edema PLAN on po antibiotics PO vanco WBC decreasing Cdiff PCR positive for toxin dc planning-- did not dc yesterday as hospital bed not available in her home VNS Celiac disease labs negative Problem List - Problems (1) Clostridium difficile colitis Code(s): A04.72 - ENTEROCOLITIS D/T CLOSTRIDIUM DIFFICILE, NOT SPCF RECUR (2) Sepsis Code(s): A41.9 - SEPSIS, UNSPECIFIED ORGANISM Qualifiers: Sepsis type: sepsis due to unspecified organism Qualified Code(s): A41.9 - Sepsis, unspecified organism (3) UTI (urinary tract infection) Code(s): N39.0 - URINARY TRACT INFECTION, SITE NOT SPECIFIED Qualifiers: Urinary tract infection type: acute cystitis Hematuria presence: without hematuria Qualified Code(s): N30.00 - Acute cystitis without hematuria (4) Acute renal failure Code(s): N17.9 - ACUTE KIDNEY FAILURE, UNSPECIFIED Qualifiers: Acute renal failure type: unspecified Qualified Code(s): N17.9 - Acute kidney failure, unspecified (5) CAD (coronary artery disease) Code(s): I25.10 - ATHSCL HEART DISEASE OF [place] CORONARY ARTERY W/O ANG PCTRS (6) Bacteremia due to Gram-negative bacteria Code(s): R78.81 - BACTEREMIA
[2017-08-06 11:41] VITALS: BP 118/62
[2017-08-06 13:09] VITALS: PULSE 98
[2017-08-06 16:23] LABS: GASTRIN 18 pg/mL (0-115)
[2017-08-07 00:08] LABS: A/G RATIO 0.9 (0.7-1.7); GLOBULIN, TOTAL 2.3 g/dL (2.2-3.9); M-SPIKE Not Observed g/dL (Not Observed); TOTAL PROTEIN 4.3 g/dL (6.0-8.5)
[2017-08-09 16:21] LABS: VASOACTIVE INTEST, POLYPEPTIDE < 16.8 pg/mL (0.0-58.8)
== END 2017-08-06 14:14 | disposition home or self-care (01) | DRG 871 ==
LOC: JER 13:25 → JICU 20:58 → J5S 07-27 20:35 → J6S 07-31 22:38
PROVIDERS: ADMIT Internal Medicine; ATTEND Internal Medicine
DX: A41.59 Other Gram-negative sepsis (principal); E43 Unspecified severe protein-calorie malnutrition; G93.41 Metabolic encephalopathy; R65.21 Severe sepsis with septic shock; N39.0 Urinary tract infection, site not specified; N17.9 Acute kidney failure, unspecified; K62.5 Hemorrhage of anus and rectum; Z68.1 Body mass index [BMI] 19.9 or less, adult; E87.0 Hyperosmolality and hypernatremia; A04.72 Enterocolitis due to Clostridium difficile, not specified as recurrent; E87.2 Acidosis; I50.30 Unspecified diastolic (congestive) heart failure; G40.89 Other seizures; R64 Cachexia; I11.0 Hypertensive heart disease with heart failure; G20 Parkinson's disease; F02.80 Dementia in other diseases classified elsewhere, unspecified severity, without behavioral disturbance, psychotic disturbance, mood disturbance, and anxiety; R62.7 Adult failure to thrive; K44.9 Diaphragmatic hernia without obstruction or gangrene; R68.0 Hypothermia, not associated with low environmental temperature; R00.0 Tachycardia, unspecified; R06.82 Tachypnea, not elsewhere classified; D72.828 Other elevated white blood cell count; E03.9 Hypothyroidism, unspecified; E87.6 Hypokalemia; E86.0 Dehydration; D12.6 Benign neoplasm of colon, unspecified; D72.823 Leukemoid reaction; I25.10 Atherosclerotic heart disease of native coronary artery without angina pectoris; K57.90 Diverticulosis of intestine, part unspecified, without perforation or abscess without bleeding; K21.9 Gastro-esophageal reflux disease without esophagitis; F32.89 Other specified depressive episodes; Z87.891 Personal history of nicotine dependence; Z66 Do not resuscitate
CPT/HCPCS: 36415; 36600; 71010-TC; 74000-TC; 74230-TC; 80048; 80053; 81003; 81015; 82272; 82550; 82607; 82728; 82746; 82803; 82941; 83516; 83540; 83550; 83605; 83735; 83880; 84100; 84132; 84155; 84165; 84443; 84484; 84586; 85025; 85027; 85044; 85610; 85730; 86140; 86850; 86900; 86901; 87040; 87045; 87046; 87086; 87177; 87186; 87205; 87209; 87324; 87449; 87493; 90688; 92611-GN; 93005; 93010; 94761; 97161-GP; 99285-25; G0008; G0480

== ENCOUNTER 2018-05-09 14:24 | Emergency (ER) | payer OTHER, MEDICARE ==
[2018-05-09 14:38] VITALS: BP 98/51; PULSE 99; TEMP 98; BMI 15.7
--- NOTE | 2018-05-09 14:40 | PDOC ---
Rapid Medical Evaluation Chief Complaint: Injury Time Seen by Provider: 05/09/18 14:34 Medical Evaluation: Allergies Allergy/AdvReac Type Severity Reaction Status Date / Time No Known Drug Allergies Allergy Verified 07/26/17 13:41 05/09/18 14:35 c/o left wrist pain s/p fall out of bed unwitnessed on saturday night as per patient she slipped and fell. patient was send by pmd for evaluation of left wrist. PE; patient alert ox3. hard of of hearing. left wrist swelling A: left wrist pain P; xray patient to the ER for the further management of care. 05/09/18 14:41 Discharge Disposition - Diagnosis Wrist pain, left - Referrals - Patient Instructions - Post Discharge Activity
--- NOTE | 2018-05-09 14:52 | PDOC ---
History of Present Illness - General Chief Complaint: Injury Stated Complaint: FELL HURT LEFT WRIST Time Seen by Provider: 05/09/18 14:34 History Source: Patient, Family Exam Limitations: Physical Impairment (heard of hearing ) - History of Present Illness Occurred: reports: last week Pain Location: reports: upper extremity (wrist ) Method of Injury: Yes: fall Past History - Past Medical History Allergies/Adverse Reactions: Allergies Allergy/AdvReac Type Severity Reaction Status Date / Time No Known Drug Allergies Allergy Verified 05/09/18 14:35 Home Medications: Ambulatory Orders Levothyroxine [Synthroid -] 50 mcg PO DAILY 08/18/15 Carbidopa/Levodopa [Carbidopa-Levo 25-100 Tab] 2 each PO TID 10/31/15 Lactobacillus Acidophilus [Bacid -] 1 tab PO BID #100 tab 11/07/15 Megestrol Acetate Oral Susp [Megace Oral Suspension -] 400 mg PO DAILY #30 cup 08/05/17 Psyllium Husk [Metamucil] 425 gm PO DAILY #30 powder 08/05/17 Buspirone HCl [Buspar -] 10 mg PO DAILY 05/09/18 Risperidone [Risperdal] 1 mg PO DAILY 05/09/18 Anemia: Yes Asthma: No Cancer: No Cardiac Disorders: Yes CVA: No COPD: No CHF: Yes Dementia: Yes Diabetes: No GI Disorders: Yes Disorders: Yes (urinary incontinence) HTN: Yes Hypercholesterolemia: No Liver Disease: No Psychiatric Problems: Yes Seizures: Yes (MANIC DEPRESSION) Thyroid Disease: Yes - Surgical History Abdominal Surgery: Yes Appendectomy: No Cardiac Surgery: No Cholecystectomy: Yes Lung Surgery: No Neurologic Surgery: No Orthopedic Surgery: No - Immunization History Immunization Up to Date: Yes - Suicide/Smoking/Psychosocial Hx Smoking Status: No Smoking History: Never smoked Have you smoked in the past 12 months: No Number of Cigarettes Smoked Daily: 0 If you are a former smoker, when did you quit?: Over 40 years ago Information on smoking cessation initiated: No Hx Alcohol Use: No Drug/Substance Use Hx: No Substance Use Type: None Hx Substance Use Treatment: No Trauma Specific PMHX - Complaint Specific PMHX Arthritis: No Review of Systems - Review of Systems Able to Perform ROS?: Yes Is the patient limited [place]ese proficient: No Constitutional: No: Symptoms Reported HEENTM: No: Symptoms Reported Respiratory: No: Symptoms reported Cardiac (ROS): No: Symptoms Reported ABD/GI: No: Symptoms Reported : No: Symptoms Reported Musculoskeletal: Yes: Symptoms Reported *Physical Exam - Vital Signs Last Vital Signs Temp Pulse Resp BP Pulse Ox 98.0 F 99 H 18 98/51 97 05/09/18 14:36 05/09/18 14:36 05/09/18 14:36 05/09/18 14:36 05/09/18 14:36 - Physical Exam General Appearance: Yes: Nourished, Appropriately Dressed HEENT: positive: EOMI, CHRISTI Neck: positive: Supple Extremity: positive: Normal Capillary Refill, Tender (left distal radius nv intact strong radial pulse , deformity noted to the distal radius ) Neurologic: positive: Normal Response, Motor Strength 5/5. negative: Sensory Deficit ED Treatment Course - Consult/PCP Time Called: 14:45 Consult Reason/Comments: Klaus SANCHES Progress Note - Progress Note Progress Note: wrist reduced in the ER by Klaus SANCHES ortho and casted follow up next week as discussed pt tolerated procedure well consent obtained by Klaus . Medical Decision Making - Medical Decision Making 05/09/18 14:55 cc: left wrist injury 5 days ago deformed wrist noticed today by the daughter xray is positive for distal radius fracture will consult with ortho , spoke to Klaus SANCHES at [phone] 05/09/18 14:59 *DC/Admit/Observation/Transfer Diagnosis at time of Disposition: Wrist pain, left Fracture of wrist Qualifiers: Encounter type: initial encounter Fracture type: closed Laterality: left Qualified Code(s): S62.102A - Fracture of unspecified carpal bone, left wrist, initial encounter for closed fracture - Discharge Dispostion Disposition: HOME Condition at time of disposition: Improved - Referrals Referrals: Milo Beckham MD [Staff Physician] - - Patient Instructions Additional Instructions: follow with the orthopedist as discussed do not remove the splint or get it wet take tylenol 650mg every 4-6hrs for pain as needed - Post Discharge Activity
[2018-05-09] MEDS ORDERED: LIDOCAINE HCL 2% (50ML VIAL) INF ONE (15:01)
[2018-05-09] MEDS ORDERED: LIDOCAINE HCL 2% (20ML MULTI-DOSE VIAL) NR ONE (15:02)
--- NOTE | 2018-05-09 16:01 | CON.ORTH ---
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 Colon adenoma rmeoved 2011.) Hepatobiliary: Yes: Cholelithiasis Renal/: Yes: UTI Infectious Disease: Yes: C-Diff Psych: Yes: Depression Endocrine: Yes: Hypothyroidism - Past Surgical History Past Surgical History: Yes: Colonoscopy (07/18/12 = adenoma removed, diverticulosis seen), Hernia Repair (Nisesen fundoplication), Upper Endoscopy (1 ) - Alcohol/Substance Use Hx Alcohol Use: No History of Substance Use: reports: None - Smoking History Smoking history: Never smoked Have you smoked in the past 12 months: No Aproximately how many cigarettes per day: 0 If you are a former smoker, when did you quit?: Over 40 years ago - Social History Usual Living Arrangement: With Significant Other ADL: Family Assistance 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 History of Recent Travel: No Home Medications - Allergies Allergies/Adverse Reactions: Allergies Allergy/AdvReac Type Severity Reaction Status Date / Time No Known Drug Allergies Allergy Verified 05/09/18 14:35 - Home Medications Home Medications: Ambulatory Orders Levothyroxine [Synthroid -] 50 mcg PO DAILY 08/18/15 Carbidopa/Levodopa [Carbidopa-Levo 25-100 Tab] 2 each PO TID 10/31/15 Lactobacillus Acidophilus [Bacid -] 1 tab PO BID #100 tab 11/07/15 Megestrol Acetate Oral Susp [Megace Oral Suspension -] 400 mg PO DAILY #30 cup 08/05/17 Psyllium Husk [Metamucil] 425 gm PO DAILY #30 powder 08/05/17 Buspirone HCl [Buspar -] 10 mg PO DAILY 05/09/18 Risperidone [Risperdal] 1 mg PO DAILY 05/09/18 Family Disease History - Family Disease History Family Disease History: [place]: Father (mesothelioma and laryngeal tumors), Brother (colon cancer), Sister (PPM, lung cancer), Other: Mother ( CVA), Sister Physical Exam for Ortho Vital Signs: Vital Signs Temperature 98.0 F 05/09/18 14:36 Pulse Rate 99 H 05/09/18 14:36 Respiratory Rate 18 05/09/18 14:36 Blood Pressure 98/51 05/09/18 14:36 O2 Sat by Pulse Oximetry (%) 97 05/09/18 14:36 - Upper Extremity Wrist: Yes: Left, Assymetrical, Deformity, Limited ROM, Pain, Swelling, Tenderness, Other (nvi) Imaging - Results X-ray: Report Reviewed, Image Reviewed Assessment/Plan 87 yo f right hand dominant s/p fall 5 days ago. Presents to ER with wrist pain and deformity. Denies any numbness/tingling. a/p- Left displaced communited distal radius fx Risks and benefits were d/w pt and family in detail Consent obtained, under sterile technique a hematoma block was given, closed reduction was attempted, splint applied Post-op xrays show slight improvement with inter-digitation of fracture site Pt will f/u in the office next week for re-evaluation and xrays sling applied strict elevation d/w Dr. Beckham
== END 2018-05-09 15:53 | disposition home or self-care (01) ==
LOC: JERFT 14:24
DX: S52.592A Other fractures of lower end of left radius, initial encounter for closed fracture (principal); W06.XXXA Fall from bed, initial encounter; Y93.89 Activity, other specified; Y92.018 Other place in single-family (private) house as the place of occurrence of the external cause; Y99.8 Other external cause status; D64.9 Anemia, unspecified; I10 Essential (primary) hypertension; I50.30 Unspecified diastolic (congestive) heart failure; F03.90 Unspecified dementia, unspecified severity, without behavioral disturbance, psychotic disturbance, mood disturbance, and anxiety; G20 Parkinson's disease; F02.80 Dementia in other diseases classified elsewhere, unspecified severity, without behavioral disturbance, psychotic disturbance, mood disturbance, and anxiety; E03.9 Hypothyroidism, unspecified; Z87.19 Personal history of other diseases of the digestive system
CPT/HCPCS: 73110-TC-LR-FY; 73130-TC-LR-FY; 99281-25

== ENCOUNTER 2018-05-22 14:02 | Inpatient (IN) | payer OTHER, MEDICARE ==
[2018-05-22 14:19] VITALS: BMI 15.7
--- NOTE | 2018-05-22 16:26 | PDOC ---
History of Present Illness - General Chief Complaint: Revisit, Lab Variance Stated Complaint: PCP SENT - History of Present Illness Initial Comments: 87 year old female with PMH of hypothyroidism, dementia (possibly parks[place]), and recent left wrist fracture presenting with weakness for the last few days in the setting of a hemoglobin ~5 demonstrated on a blood draw two days prior. She was sent in by her home medical service for this lab abnormality. Upon further questioning, she hasn't had anemia in the past and has no obvious source of bleeding. Denies recent illness, blood from any orifice, cough, fevers , abdominal pain, travel, sick contacts, diet change, or other issues. 05/22/18 16:47 Past History - Past Medical History Allergies/Adverse Reactions: Allergies Allergy/AdvReac Type Severity Reaction Status Date / Time No Known Drug Allergies Allergy Verified 05/22/18 14:14 Home Medications: Ambulatory Orders Levothyroxine [Synthroid -] 50 mcg PO DAILY 08/18/15 Carbidopa/Levodopa [Carbidopa-Levo 25-100 Tab] 2 each PO TID 10/31/15 Lactobacillus Acidophilus [Bacid -] 1 tab PO BID #100 tab 11/07/15 Megestrol Acetate Oral Susp [Megace Oral Suspension -] 400 mg PO DAILY #30 cup 08/05/17 Psyllium Husk [Metamucil] 425 gm PO DAILY #30 powder 08/05/17 Buspirone HCl [Buspar -] 10 mg PO DAILY 05/09/18 Risperidone [Risperdal] 1 mg PO DAILY 05/09/18 Anemia: Yes Asthma: No Cancer: No Cardiac Disorders: Yes CVA: No COPD: No CHF: Yes Dementia: Yes Diabetes: No GI Disorders: Yes Disorders: Yes (urinary incontinence) HTN: Yes Hypercholesterolemia: No Liver Disease: No Psychiatric Problems: Yes Seizures: Yes (MANIC DEPRESSION) Thyroid Disease: Yes - Surgical History Abdominal Surgery: Yes Appendectomy: No Cardiac Surgery: No Cholecystectomy: Yes Lung Surgery: No Neurologic Surgery: No Orthopedic Surgery: No - Immunization History Immunization Up to Date: Yes - Suicide/Smoking/Psychosocial Hx Smoking Status: No Smoking History: Never smoked Have you smoked in the past 12 months: No Number of Cigarettes Smoked Daily: 0 If you are a former smoker, when did you quit?: Over 40 years ago Hx Alcohol Use: No Drug/Substance Use Hx: No Substance Use Type: None Hx Substance Use Treatment: No Review of Systems - Review of Systems Constitutional: Yes: Weakness. No: Chills, Diaphoresis, Fever, Loss of Appetite HEENTM: No: Eye Pain, Blurred Vision, Tearing, Double Vision Respiratory: No: Cough, Shortness of Breath Cardiac (ROS): No: Chest Pain, Edema, Irregular Heart Rate, Lightheadedness, Palpitations ABD/GI: No: Abd. Pain w/ defecation, Blood Streaked Bowels, Nausea, Poor Appetite, Poor Fluid Intake, Rectal Bleeding, Vomiting : Yes: Incontinence. No: Burning, Dysuria, Discharge, Frequency, Flank Pain, Hematuria Musculoskeletal: No: Back Pain, Joint Pain Integumentary: No: Bruising, Change in Color, Erythema, Flushing, Lesions, Lumps Neurological: No: Headache, Numbness, Paresthesia Psychiatric: Yes: Other (dementia). No: Anxiety Endocrine: No: Excessive Sweating, Flushing, Intolerance to Cold, Intolerance to Heat Hematologic/Lymphatic: No: Anemia, Blood Clots, Easy Bleeding, Easy Bruising *Physical Exam - Vital Signs Last Vital Signs Temp Pulse Resp BP Pulse Ox 98.6 F 100 H 22 130/56 95 05/22/18 14:17 05/22/18 14:17 05/22/18 14:17 05/22/18 14:17 05/22/18 14:17 - Physical Exam General Appearance: Yes: Nourished, Appropriately Dressed. No: Apparent Distress HEENT: positive: EOMI, CHRISTI, Normal ENT Inspection, Normal Voice, Other (false teeth). negative: Pale Conjunctivae Neck: positive: Trachea midline, Normal Thyroid, Supple. negative: Tender, Rigid Respiratory/Chest: negative: Chest Tender, Lungs Clear, Normal Breath Sounds ( bilateral inspiratory crackles) Cardiovascular: positive: Regular Rhythm, Tachycardia, Systolic Murmur (2/5 systolic murmur heard loudest in the right 2nd intercostal space). negative: Regular Rate Gastrointestinal/Abdominal: positive: Normal Bowel Sounds, Flat, Soft. negative : Tender Rectal Exam: positive: normal exam. negative: heme negative stool Musculoskeletal: negative: Normal Inspection (globally weak) Extremity: positive: Normal Capillary Refill, Normal Inspection Integumentary: positive: Normal Color, Dry, Warm Neurologic: positive: Fully Oriented, Alert, Normal Mood/Affect. negative: Motor Strength 5/5 (globally weak, hard of hearing) ED Treatment Course - LABORATORY CBC & Chemistry Diagram: 05/22/18 17:20 05/22/18 17:20 Medical Decision Making - Medical Decision Making 87 year with weakness and hemoglobins of 5s from outside labs. Hemoglobin here 5.7 with thrombocytosis and fecal blood negative. Patient given 2 packs PRBcs and admitted for further workup. Labs do no emonstrate intravascular hemolysis. Unclear source for anemia but possibly iron deficiency (MCV 67) or other vitamin deficiency. New malignancy, given age should also be considered. CXR showing increased interstitial markings so possibly cardiac related. EKG showing rate 95, AL 174, QRS 76, QTC 475, normal axis, occasional PVCs and no ST or T wave changes. 05/22/18 18:28 *DC/Admit/Observation/Transfer Diagnosis at time of Disposition: Anemia Qualifiers: Anemia type: other cause Other causes of anemia: other cause, not classified Qualified Code(s): D64.89 - Other specified anemias - Discharge Dispostion Decision to Admit order: Yes - Referrals - Patient Instructions - Post Discharge Activity
--- NOTE | 2018-05-22 16:42 | PDOC ---
Attending Attestation - HPI HPI: 05/22/18 18:04 The patient is an 87 year old female with a past medical history of hypothyroidism, recent left wrist fracture and dementia who presents to the emergency department for evaluation of several days of generalized weakness with a hemoglobin level of ~5 taken 2 days ago. The patient denies sick contact, recent illness, abdominal pain, unusual discharge, cough, fevers, or any recent changes in diet. - Physicial Exam PE: Vitals: Triage Vital signs reviewed General Appearance: no acute distress, well nourished well developed, Head: Atraumatic, normocephalic Neck: Supple Chest Wall: Nontender Cardiac: (+)Systolic ejection murmur. Regular rate and rhythm. No rubs or gallops., Lungs: Clear to auscultation bilateral, good air movement bilaterally, Abdomen: Soft, nondistended, nontender to palpation Extremities: Full range of motion to all extremities, no cyanosis, clubbing, or edema Skin: Warm and dry, no rashes or lesions, no petechiae Psych: normal mood, normal affect - Medical Decision Making The patient is an 87 year old female with a past medical history of hypothyroidism, recent left wrist fracture and dementia who presents to the emergency department for evaluation of several days of generalized weakness with a hemoglobin level of ~5 taken 2 days ago. Plan: ECG Labs <Roman Montes - Last Filed: 05/22/18 18:05> - Resident Resident Name: Bladimir Haynes - ED Attending Attestation I have performed the following: I have examined & evaluated the patient, The case was reviewed & discussed with the resident, I agree w/resident's findings & plan, Exceptions are as noted - Medical Decision Making Anemia of unknown etiology. Patient sent in by primary care provider Guaiac negative stool We'll admit to medicine for blood transfusion and further workup of anemia <Jose Enrique Medellin - Last Filed: 05/22/18 21:00> Heart Score/ECG Review - ECG Impressions Comment:: 05/22/18 21:00 EKG performed at 1702 demonstrates sinus rhythm no ST elevations noted T-wave inversions Interpreted by me. <Jose Enrique Medellin - Last Filed: 05/22/18 21:00> Attestations - Attestations Documentation prepared by Roman Montes, acting as director of medical services for Jose Enrique Medellin MD. <Roman Montes - Last Filed: 05/22/18 18:05>
[2018-05-22 17:41] LABS: MONO % 6.1 % (3.8-10.2); NEUT % 74.3 % (42.8-82.8); WHITE BLOOD COUNT 12.8 K/mm3 (4.0-10.0)
[2018-05-22 17:46] LABS: INR 1.12 (0.83-1.09); PROTHROMBIN TIME (PATIENT) 12.7 SEC (9.7-13.0)
[2018-05-22 17:47] LABS: BASO % 0.7 % (0-2.0); EOS % 0.6 % (0-4.5); LYMPH % 18.3 % (8-40); MCHC 29.1 g/dl (32.0-36.0); MEAN CELL VOLUME 63.7 fl (80-96); MEAN PLT VOLUME 7.1 fl (7.5-11.1); PLATELET COUNT 690 K/MM3 (134-434); RBC 3.06 M/mm3 (3.60-5.2); RDW 24.9 % (11.6-15.6)
[2018-05-22 17:51] LABS: MCH 18.6 pg (25.7-33.7)
[2018-05-22 17:53] LABS: HEMATOCRIT 19.5 % (32.4-45.2); HEMOGLOBIN 5.7 GM/dL (10.7-15.3)
[2018-05-22 18:05] LABS: ALBUMIN 2.8 g/dl (3.4-5.0); ALK PHOS 131 U/L (45-117); ANION GAP 4 MMOL/L (8-16); BILIRUBIN,DIRECT < 0.2 mg/dL (0.0-0.2); BILIRUBIN,TOTAL 0.2 mg/dL (0.2-1); BLOOD UREA NITROGEN 10 mg/dL (7-18); CALCIUM 8.9 mg/dL (8.5-10.1); CHLORIDE 109 mmol/L (98-107); CO2 28 mmol/L (21-32); CREATININE 0.7 mg/dL (0.55-1.3); GLUCOSE,RANDOM 87 mg/dL (74-106); LDH 175 U/L (84-246); SGOT/AST 10 U/L (15-37); SGPT/ALT 8 U/L (13-61); SODIUM 140 mmol/L (136-145); TOT PROT 6.2 g/dl (6.4-8.2)
[2018-05-22 18:12] LABS: URINE APPEARANCE CLOUDY; URINE BILIRUBIN NEGATIVE (<2.0 mg/dL); URINE COLOR YELLOW; URINE GLUCOSE (UA) NEGATIVE (NEGATIVE); URINE KETONE NEGATIVE (NEGATIVE); URINE NITRITE NEGATIVE (NEGATIVE); URINE PROTEIN NEGATIVE (NEGATIVE); URINE UROBILINOGEN NEGATIVE mg/dL (0.2-1.0)
[2018-05-22 18:39] LABS: ANISOCYTOSIS 3+; MACROCYTOSIS 1+; PLATELET ESTIMATE SIGNIFICANT INCREASE; ROULEAU 1+
[2018-05-22 19:36] LABS: URINE LEUK ESTERASE 2+ (NEGATIVE)
[2018-05-22 19:56] LABS: EPI CELLS RARE /HPF (FEW); URINE BACTERIA MANY /hpf (NONE SEEN); URINE MUCUS RARE
--- NOTE | 2018-05-22 20:28 | HP ---
CHIEF COMPLAINT: Sent by PCP for low hemoglobin PCP: Ele[facility] division head ([phone]) HISTORY OF PRESENT ILLNESS: Patient is an 87 year old female with a PMHx of Hypothyroidism, Parkinsonian, Hiatal hernia who was sent over by her PCP ([facility] division head) after she was found to have hemoglobin of 5. According to patients niece (who is the HCP) she was feeling weak and dizzy this past saturday and unable to get of bed, however, the week before she was at baseline. Patient was examined by one of the division head doctors and noticed tachycardia with an ECHO done. Of note, patient had a mechanical fall after tripping on the rug and was found to have a left wrist fracture. She was see by ortho and recommended a cast. Patient at baseline uses a walker and alternates with wheelchair Patient otherwise denies any dizziness, lightheadedness, chest pain, short of breath, loss of consciousness, fever, chills, nausea, vomiting, diarrhea, constipation. Patient had last colonoscopy 2011 and was found to have a poly Patient lives with her 89 year old sister and both have daily home health aids ER course was notable for: (1) PRBC's ordered (2) (3) Recent Travel: Denies PAST MEDICAL HISTORY: Hypothyroidism, Parkinsonian, Hiatal hernia, intermittent chronic diarrhea PAST SURGICAL HISTORY: Hernia repair, cholecystectomy Social History: Smoking: Former 1 PPD smoker and unsure when she began or quit Alcohol: Denies Drugs: Denies Allergies: No Known Drug Allergies Allergy (Verified 05/22/18 14:14) HOME MEDICATIONS: Home Medications Medication Instructions Recorded Levothyroxine [Synthroid -] 50 mcg PO DAILY 08/18/15 Carbidopa/Levodopa [Carbidopa-Levo 2 each PO TID 10/31/15 25-100 Tab] Lactobacillus Acidophilus [Bacid -] 1 tab PO BID #100 tab 11/07/15 Megestrol Acetate Oral Susp 400 mg PO DAILY #30 cup 08/05/17 [Megace Oral Suspension -] Psyllium Husk [Metamucil] 425 gm PO DAILY #30 powder 08/05/17 Buspirone HCl [Buspar -] 10 mg PO DAILY 05/09/18 Risperidone [Risperdal] 1 mg PO DAILY 05/09/18 REVIEW OF SYSTEMS CONSTITUTIONAL: Absent: fever, chills, diaphoresis, generalized weakness, malaise, loss of appetite, weight change HEENT: Absent: rhinorrhea, nasal congestion, throat pain, throat swelling, difficulty swallowing, mouth swelling, ear pain, eye pain, visual changes CARDIOVASCULAR: palpitations Absent: chest pain, syncope, irregular heart rate, lightheadedness, peripheral edema RESPIRATORY: Absent: cough, shortness of breath, dyspnea with exertion, orthopnea, wheezing, stridor, hemoptysis GASTROINTESTINAL: Absent: abdominal pain, abdominal distension, nausea, vomiting, diarrhea, constipation, melena, hematochezia GENITOURINARY: Absent: dysuria, frequency, urgency, hesitancy, hematuria, flank pain, genital pain MUSCULOSKELETAL: Absent: myalgia, arthralgia, joint swelling, back pain, neck pain SKIN: Absent: rash, itching, pallor HEMATOLOGIC/IMMUNOLOGIC: Absent: easy bleeding, easy bruising, lymphadenopathy, frequent infections ENDOCRINE: Absent: unexplained weight gain, unexplained weight loss, heat intolerance, cold intolerance NEUROLOGIC: Absent: headache, focal weakness or paresthesias, dizziness, unsteady gait, seizure, mental status changes, bladder or bowel incontinence PSYCHIATRIC: Absent: anxiety, depression, suicidal or homicidal ideation, hallucinations. PHYSICAL EXAMINATION Vital Signs - 24 hr 05/22/18 14:17 Temperature 98.6 F Pulse Rate 100 H Respiratory 22 Rate Blood Pressure 130/56 O2 Sat by Pulse 95 Oximetry (%) GENERAL: Awake, alert, and fully oriented, thin, cachectic, in no acute distress. HEAD: Normal with no signs of trauma. EYES: Pupils equal, round and reactive to light, extraocular movements intact, sclera anicteric, conjunctiva clear. No lid lag. EARS, NOSE, THROAT: Oropharynx clear without exudates. Dry mucous membranes. NECK: (-) lymphadenopathy, JVD, or masses. LUNGS: Breath sounds equal, clear to auscultation bilaterally. No wheezes, and no crackles. No accessory muscle use. HEART: Tachycardic with regular rhythm, normal S1 and S2, 2/6 BUSHRA. ABDOMEN: Soft, nontender, not distended, normoactive bowel sounds, no guarding, no rebound, no masses. RECTAL: No external hemorrhoids, stool in vault. No masses MUSCULOSKELETAL: No CVA tenderness. UPPER EXTREMITIES: No peripheral edema. LOWER EXTREMITIES: No peripheral edema. NEUROLOGICAL: Cranial nerves II-XII intact. Normal speech. Motor strength 5/5 bilaterally. Unable to assess LUE due to cast PSYCHIATRIC: Cooperative. Good eye contact. Appropriate mood and affect. SKIN: Warm, dry, normal turgor, no rashes or lesions noted, normal capillary refill. Laboratory Results - last 24 hr 05/22/18 05/22/18 05/22/18 16:38 17:20 17:20 WBC 12.8 H RBC 3.06 L Hgb 5.7 L* Hct 19.5 L D MCV 63.7 L MCH 18.6 L D MCHC 29.1 L RDW 24.9 H Plt Count 690 H D MPV 7.1 L D Absolute Neuts (auto) 9.5 H Neutrophils % 74.3 Lymphocytes % 18.3 Monocytes % 6.1 D Eosinophils % 0.6 Basophils % 0.7 Nucleated RBC % 0 Hypochromia 3+ Platelet Estimate Significant increase Anisocytosis 3+ Microcytosis 1+ Macrocytosis 1+ Rouleaux 1+ PT with INR INR Sodium 140 Potassium 4.0 Chloride 109 H Carbon Dioxide 28 Anion Gap 4 L BUN 10 Creatinine 0.7 Creat Clearance w eGFR > 60 Random Glucose 87 Calcium 8.9 Total Bilirubin 0.2 Direct Bilirubin < 0.2 AST 10 L ALT 8 L Alkaline Phosphatase 131 H LD Total 175 Total Protein 6.2 L Albumin 2.8 L TSH Urine Color Urine Appearance Urine pH Ur Specific [place] Urine Protein Urine Glucose (UA) Urine Ketones Urine Blood Urine Nitrite Urine Bilirubin Urine Urobilinogen Ur Leukocyte Esterase Urine WBC (Auto) Urine RBC (Auto) Ur Epithelial Cells Urine Bacteria Urine Mucus Stool Occult Blood Negative Blood Type Antibody Screen Crossmatch 05/22/18 05/22/18 05/22/18 17:20 17:20 17:20 WBC RBC Hgb Hct MCV MCH MCHC RDW Plt Count MPV Absolute Neuts (auto) Neutrophils % Lymphocytes % Monocytes % Eosinophils % Basophils % Nucleated RBC % Hypochromia Platelet Estimate Anisocytosis Microcytosis Macrocytosis Rouleaux PT with INR 12.70 INR 1.12 H Sodium Potassium Chloride Carbon Dioxide Anion Gap BUN Creatinine Creat Clearance w eGFR Random Glucose Calcium Total Bilirubin Direct Bilirubin AST ALT Alkaline Phosphatase LD Total Total Protein Albumin TSH 1.70 Urine Color Urine Appearance Urine pH Ur Specific [place] Urine Protein Urine Glucose (UA) Urine Ketones Urine Blood Urine Nitrite Urine Bilirubin Urine Urobilinogen Ur Leukocyte Esterase Urine WBC (Auto) Urine RBC (Auto) Ur Epithelial Cells Urine Bacteria Urine Mucus Stool Occult Blood Blood Type A POSITIVE Antibody Screen Negative Crossmatch See Detail 05/22/18 17:57 WBC RBC Hgb Hct MCV MCH MCHC RDW Plt Count MPV Absolute Neuts (auto) Neutrophils % Lymphocytes % Monocytes % Eosinophils % Basophils % Nucleated RBC % Hypochromia Platelet Estimate Anisocytosis Microcytosis Macrocytosis Rouleaux PT with INR INR Sodium Potassium Chloride Carbon Dioxide Anion Gap BUN Creatinine Creat Clearance w eGFR Random Glucose Calcium Total Bilirubin Direct Bilirubin AST ALT Alkaline Phosphatase LD Total Total Protein Albumin TSH Urine Color Yellow Urine Appearance Cloudy Urine pH 6.0 Ur Specific [place] 1.011 Urine Protein Negative Urine Glucose (UA) Negative Urine Ketones Negative Urine Blood Negative Urine Nitrite Negative Urine Bilirubin Negative Urine Urobilinogen Negative Ur Leukocyte Esterase 2+ H Urine WBC (Auto) 82 Urine RBC (Auto) 2 Ur Epithelial Cells Rare Urine Bacteria Many Urine Mucus Rare Stool Occult Blood Blood Type Antibody Screen Crossmatch ASSESSMENT/PLAN: Patent is an 87 year old female who was sent by her PCP for low hemoglobin. Patient in the hospital was found to have hemoglobin of 5.7 wit tachycardia. Patient admitted for further monitoring and management. Symptomatic Anemia -HGB 5.7, Tachy in the 100's, weakness -2 PRBC's ordered -Type and screen -Digital rectal exam negative for blood or external hemorrhoids -Oxygen -LDH normal, haptoglobin pending, -Bedrest -Fall precautions Thrombocytosis -Likely from anemia -Continue to monitor CBC Malnourished State -Albumin low, emaciated and thin -Pillar Man consult ordered -Ensure daily Hypothyroidism -Continue home medication F/E/N -On no fluids -Electrolyte wnl -Regular diet with Ensure Prophylaxis -Moderate risk. No AC due to anemia. SCD's daily -No G required now Disposition -Full code. Spoke to patient and HCP at bed side -Awaiting Blood transfusions Case Discussed with Attending, Dr. Barrera. Eva Prince [id number] Visit type - Emergency Visit Emergency Visit: Yes ED Registration Date: 05/22/18 Care time: The patient presented to the Emergency Department on the above date and was hospitalized for further evaluation of their emergent condition. - New Patient This patient is new to me today: Yes Date on this admission: 05/22/18 - Critical Care Critical Care patient: No Hospitalist Screening - Colonoscopy Questionnaire Colonoscopy Questionnaire: Colonoscopy Questionnaire - Patient: 50 - 75 years old and never had a screening colonoscopy: No History of colon or rectal polyps, or CA: Yes History of IBD, Crohn's disease or UC: No History of abdominal radiation therapy as a child: No - Relative: 1 with colon or rectal CA, or polyps at age 60 or younger: Yes Colon or rectal CA diagnosed at age 45 or younger: No Multiple relatives with colon or rectal CA: No - Outcome: Screening Result: Positive Screen
[2018-05-22] MEDS ORDERED: CARBIDOPA/LEVODOPA 25/100 TABLET (FP) ONE (22:10)
[2018-05-22] MEDS: CARBIDOPA/LEVODOPA 25/100 TABLET (FP) PO SCH (22:13)
--- NOTE | 2018-05-23 00:40 | PN ---
Teaching Attending Note Name of Resident: Eva Prince ATTENDING PHYSICIAN STATEMENT I saw and evaluated the patient. Chart, data, imaging reviewed. I reviewed the resident's note and discussed the case with the resident. I agree with the resident's findings and plan as documented. SUBJECTIVE: 87 year old woman with Hypothyroidism, Parkinsonian, Hiatal hernia, recent left wrist fracture s/p mechanical fall was sent who was sent over by her PCP ([facility] controls technician) after she was found to have hgb of 5. According to pt's niece, she was feeling weak and dizzy, unable to get out of bed. Brought in the hospital found to be tachycardic, hgb found to be 5.7 mg/dl. Patient had last colonoscopy 2011 and was found to have a polyp at that time. Pt denied any current bleeding. No blood in stool. No NSAID use. OBJECTIVE: Last Vital Signs Temp Pulse Resp BP Pulse Ox 98.9 F 100 H 18 124/59 95 05/22/18 19:48 05/22/18 19:48 05/22/18 19:48 05/22/18 19:48 05/22/18 14:17 General- awake, alert, nontoxic, thin, frail, wasted appearance heent- atraumatic, nc neck -supple cv -s1+s2+borderline tachy chest- b/l air entry sounds abdomen -soft, nt, bs+ ext -thin, left wrist cast Rectal exam did not show overt blood, no hemorrhoids skin- neg for ecchymosis Abnormal Lab Results 05/22/18 05/22/18 05/22/18 17:20 17:20 17:20 WBC 12.8 H RBC 3.06 L Hgb 5.7 L* Hct 19.5 L D MCV 63.7 L MCH 18.6 L D MCHC 29.1 L RDW 24.9 H Plt Count 690 H D MPV 7.1 L D Absolute Neuts (auto) 9.5 H INR Chloride 109 H Anion Gap 4 L AST 10 L ALT 8 L Alkaline Phosphatase 131 H Total Protein 6.2 L Albumin 2.8 L Ur Leukocyte Esterase Crossmatch See Detail 05/22/18 05/22/18 17:20 17:57 WBC RBC Hgb Hct MCV MCH MCHC RDW Plt Count MPV Absolute Neuts (auto) INR 1.12 H Chloride Anion Gap AST ALT Alkaline Phosphatase Total Protein Albumin Ur Leukocyte Esterase 2+ H Crossmatch cxr- reviewed ASSESSMENT AND PLAN: #87yo woman with acute, symptomatic, microcytic anemia of unclear etiology. No source of bleeding identified. Less likely to be hemolysis. Last colonoscopy was 6 yrs ago. -observation -transfuse 2 units prbc -ferritin, iron studies, vit b12 -haptoglobin, ldh, blood smear to check for schistocytes -repeat cbc, goal hgb is >7 mg/dl -GI consult for possible repeat colonoscopy -monitor BP, h,h -repeat FOBT -avoid heparin or NSAIDs #Malnourished state -dietary consult -calorie count -PO protein supplement q meal -fall precautions -bed rest #Advanced directives -pt wishes to be full code at this time DVT ppx- scds
[2018-05-23] MEDS ORDERED: CARBIDOPA/LEVODOPA 25/100 TABLET (FP) ONE (06:04)
[2018-05-23] MEDS ORDERED: LEVOTHYROXINE NA 25 MCG TABLET (FP) ONE (06:04)
[2018-05-23] MEDS: CARBIDOPA/LEVODOPA 25/100 TABLET (FP) PO SCH ×3 (06:20→21:27)
[2018-05-23] MEDS: LEVOTHYROXINE NA 50 MCG TABLET (FP) PO SCH (06:20)
[2018-05-23 07:14] LABS: BASO % 0.6 % (0-2.0); HEMATOCRIT 29.2 % (32.4-45.2); HEMOGLOBIN 9.4 GM/dL (10.7-15.3); LYMPH % 16.5 % (8-40); MCH 22.6 pg (25.7-33.7); MCHC 32.1 g/dl (32.0-36.0); MEAN CELL VOLUME 70.4 fl (80-96); MEAN PLT VOLUME 6.9 fl (7.5-11.1); MONO % 7.6 % (3.8-10.2); NEUT % 74.3 % (42.8-82.8); PLATELET COUNT 549 K/MM3 (134-434); RBC 4.14 M/mm3 (3.60-5.2); RDW 28.8 % (11.6-15.6); WHITE BLOOD COUNT 13.8 K/mm3 (4.0-10.0)
[2018-05-23 07:49] LABS: ANION GAP 10 MMOL/L (8-16); BLOOD UREA NITROGEN 11 mg/dL (7-18); CALCIUM 9.1 mg/dL (8.5-10.1); CHLORIDE 109 mmol/L (98-107); CO2 23 mmol/L (21-32); CREATININE 0.6 mg/dL (0.55-1.3); GLUCOSE,RANDOM 78 mg/dL (74-106); MAGNESIUM 2.2 mg/dL (1.8-2.4); PHOSPHOROUS 3.6 mg/dL (2.5-4.9); POTASSIUM 4.4 mmol/L (3.5-5.1); SODIUM 142 mmol/L (136-145)
--- NOTE | 2018-05-23 08:05 | EKG ---
Test Reason : Blood Pressure : / mmHG Vent. 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
[2018-05-23 08:39] LABS: INR 1.13 (0.83-1.09); PROTHROMBIN TIME (PATIENT) 12.8 SEC (9.7-13.0)
[2018-05-23] MEDS: SERTRALINE HCL 50 MG TABLET (FP) PO SCH (09:25)
[2018-05-23] MEDS ORDERED: ALPRAZolam 0.25 MG TABLET PO SCH (10:00)
[2018-05-23] MEDS ORDERED: risperiDONE 1 MG TABLET (FP) PO SCH (10:00)
--- NOTE | 2018-05-23 12:47 | PN ---
Physical Exam: SUBJECTIVE: Patient seen and examined at the bedside. In no acute distress. Eating lunch, smiling. Sister at bedside, provided history. Sister wants to take patient home OBJECTIVE: s/p 2 units of prbc hmg stable Await GI evaluation stool for occult blood negative x Vital Signs Period Temp Pulse Resp BP Sys/Riggins Pulse Ox Last 24 Hr 98.1 F-98.9 F 86-100 18-22 124-144/56-63 95-96 GENERAL: The patient is awake, alert, and fully oriented, in no acute distress. HEAD: Normal with no signs of trauma. EYES: PERRL, extraocular movements intact, sclera anicteric, conjunctiva clear. No ptosis. ENT: Ears normal, nares patent, oropharynx clear without exudates, moist mucous membranes. NECK: Trachea midline, full range of motion, supple. LUNGS: Breath sounds equal, clear to auscultation anteriorly HEART: Regular rate and rhythm ABDOMEN: Soft, nontender, nondistended, normoactive bowel sounds, no guarding EXTREMITIES: left wrist fracture, on cast x 6 weeks. NEUROLOGICAL:Normal speech, gait not observed. mostly wheelchair bound, intermittently can ambulate with walker with major assistance PSYCH: Normal mood, normal affect. SKIN: Warm, dry, normal turgor, no rashes or lesions noted Laboratory Results - last 24 hr 05/22/18 05/22/18 05/22/18 16:38 17:20 17:20 WBC 12.8 H RBC 3.06 L Hgb 5.7 L* Hct 19.5 L D MCV 63.7 L MCH 18.6 L D MCHC 29.1 L RDW 24.9 H Plt Count 690 H D MPV 7.1 L D Absolute Neuts (auto) 9.5 H Neutrophils % 74.3 Lymphocytes % 18.3 Monocytes % 6.1 D Eosinophils % 0.6 Basophils % 0.7 Nucleated RBC % 0 Hypochromia 3+ Platelet Estimate Significant increase Anisocytosis 3+ Microcytosis 1+ Macrocytosis 1+ Rouleaux 1+ PT with INR INR Sodium 140 Potassium 4.0 Chloride 109 H Carbon Dioxide 28 Anion Gap 4 L BUN 10 Creatinine 0.7 Creat Clearance w eGFR > 60 Random Glucose 87 Calcium 8.9 Phosphorus Magnesium Total Bilirubin 0.2 Direct Bilirubin < 0.2 AST 10 L ALT 8 L Alkaline Phosphatase 131 H LD Total 175 Total Protein 6.2 L Albumin 2.8 L TSH Urine Color Urine Appearance Urine pH Ur Specific [place] Urine Protein Urine Glucose (UA) Urine Ketones Urine Blood Urine Nitrite Urine Bilirubin Urine Urobilinogen Ur Leukocyte Esterase Urine WBC (Auto) Urine RBC (Auto) Ur Epithelial Cells Urine Bacteria Urine Mucus Stool Occult Blood Negative Blood Type Antibody Screen Crossmatch 05/22/18 05/22/18 05/22/18 17:20 17:20 17:20 WBC RBC Hgb Hct MCV MCH MCHC RDW Plt Count MPV Absolute Neuts (auto) Neutrophils % Lymphocytes % Monocytes % Eosinophils % Basophils % Nucleated RBC % Hypochromia Platelet Estimate Anisocytosis Microcytosis Macrocytosis Rouleaux PT with INR 12.70 INR 1.12 H Sodium Potassium Chloride Carbon Dioxide Anion Gap BUN Creatinine Creat Clearance w eGFR Random Glucose Calcium Phosphorus Magnesium Total Bilirubin Direct Bilirubin AST ALT Alkaline Phosphatase LD Total Total Protein Albumin TSH 1.70 Urine Color Urine Appearance Urine pH Ur Specific [place] Urine Protein Urine Glucose (UA) Urine Ketones Urine Blood Urine Nitrite Urine Bilirubin Urine Urobilinogen Ur Leukocyte Esterase Urine WBC (Auto) Urine RBC (Auto) Ur Epithelial Cells Urine Bacteria Urine Mucus Stool Occult Blood Blood Type A POSITIVE Antibody Screen Negative Crossmatch See Detail 05/22/18 05/22/18 05/23/18 17:57 20:18 06:30 WBC 13.8 H RBC 4.14 Hgb 9.4 L Hct 29.2 L D MCV 70.4 L MCH 22.6 L MCHC 32.1 RDW 28.8 H Plt Count 549 H D MPV 6.9 L Absolute Neuts (auto) 10.2 H Neutrophils % 74.3 Lymphocytes % 16.5 Monocytes % 7.6 Eosinophils % 1.0 Basophils % 0.6 Nucleated RBC % 0 Hypochromia Platelet Estimate Anisocytosis Microcytosis Macrocytosis Rouleaux PT with INR INR Sodium Potassium Chloride Carbon Dioxide Anion Gap BUN Creatinine Creat Clearance w eGFR Random Glucose Calcium Phosphorus Magnesium Total Bilirubin Direct Bilirubin AST ALT Alkaline Phosphatase LD Total Total Protein Albumin TSH Urine Color Yellow Urine Appearance Cloudy Urine pH 6.0 Ur Specific [place] 1.011 Urine Protein Negative Urine Glucose (UA) Negative Urine Ketones Negative Urine Blood Negative Urine Nitrite Negative Urine Bilirubin Negative Urine Urobilinogen Negative Ur Leukocyte Esterase 2+ H Urine WBC (Auto) 82 Urine RBC (Auto) 2 Ur Epithelial Cells Rare Urine Bacteria Many Urine Mucus Rare Stool Occult Blood Negative Blood Type Antibody Screen Crossmatch 05/23/18 05/23/18 06:30 06:30 WBC RBC Hgb Hct MCV MCH MCHC RDW Plt Count MPV Absolute Neuts (auto) Neutrophils % Lymphocytes % Monocytes % Eosinophils % Basophils % Nucleated RBC % Hypochromia Platelet Estimate Anisocytosis Microcytosis Macrocytosis Rouleaux PT with INR 12.80 INR 1.13 H Sodium 142 Potassium 4.4 Chloride 109 H Carbon Dioxide 23 Anion Gap 10 BUN 11 Creatinine 0.6 Creat Clearance w eGFR > 60 Random Glucose 78 Calcium 9.1 Phosphorus 3.6 Magnesium 2.2 Total Bilirubin Direct Bilirubin AST ALT Alkaline Phosphatase LD Total Total Protein Albumin TSH Urine Color Urine Appearance Urine pH Ur Specific [place] Urine Protein Urine Glucose (UA) Urine Ketones Urine Blood Urine Nitrite Urine Bilirubin Urine Urobilinogen Ur Leukocyte Esterase Urine WBC (Auto) Urine RBC (Auto) Ur Epithelial Cells Urine Bacteria Urine Mucus Stool Occult Blood Blood Type Antibody Screen Crossmatch Active Medications Generic Name Dose Route Start Last Admin Trade Name Freq PRN Reason Stop Dose Admin Alprazolam 0.5 mg 05/23/18 10:00 Xanax - PO BID MISTI Buspirone HCl 10 mg 05/23/18 10:00 Buspar - PO DAILY MISTI Carbidopa/Levodopa 2 each 05/22/18 22:00 05/23/18 06:20 Sinemet 25/100 - PO 2 each TID MISTI Administration Levothyroxine Sodium 50 mcg 05/23/18 07:00 05/23/18 06:20 Synthroid - PO 50 mcg 0700 MISTI Administration Risperidone 1 mg 05/23/18 22:00 Risperdal - PO HS MISTI Sertraline HCl 100 mg 05/23/18 10:00 05/23/18 09:25 Zoloft - PO 100 mg DAILY MISTI Administration ASSESSMENT/PLAN: Patient is an 86 year old female with a significant past medical history of CHF (diastolic), CAD, HTN, hypothyroidism and chronic intermittent diarrhea, dementia, 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 She presents to the ED for symptomatic anemia and was found to have a hmg of 5. She has baseline dementia. Her sister is in the room and provides all of the history. Sister is HCP. Heme: Symptomatic Anemia: hmg 5.7 on admission, given 2 units of prbc, hmg/hct stable post blood transfusion. Stool for occult blood negative x 2. Seen by GI. Patient for abd/ct pelvis to rule out malignancy. Patient refusing endoscopic intervention. PPI ordered by GI. Thrombocytosis: will continue to monitor CBC with repeat labs in the a.m. Heme consult. No signs of bleeding. Leukocytosis: Has been elevated on previous admission. No signs of infection currently. etiology of leukocytosis unclear. will order blood culture. Card: Hypothyroidism: on synthroid Diastolic CHF: Monitor intake and output. Hypertension: BP stable. Neuro Parkinsons: on sinemet Dementia: per sister, at baseline - on buspar. check dosing. fen tolerating PO monitor electrolytes regular diet Visit type - Emergency Visit Emergency Visit: Yes ED Registration Date: 05/22/18 Care time: The patient presented to the Emergency Department on the above date and was hospitalized for further evaluation of their emergent condition. - New Patient This patient is new to me today: Yes Date on this admission: 05/23/18 - Critical Care Critical Care patient: No - Discharge Referral Referred to [facility] Med P.C.: No
[2018-05-23] MEDS ORDERED: ALPRAZolam 0.25 MG TABLET PO PRN (15:25)
--- NOTE | 2018-05-23 16:19 | CON.GI ---
Consult Consult Specialty:: Gastroenterology Referred by:: Dr. Bhagat Reason for Consultation:: Anemia - History of Present Illness Chief Complaint: Dizzyness ad weakness History of Present Illness: 87F [facility] she was found to have a Hb 5. She has been feeling so weak recently that she was unable to get out of bed. She also c/ o orthostatic dizziness. She denies any bleeding. She denies constipation. She moves her bowels daily and describes the stools as well formed. She had a colonoscopy with me in 07/14 when a descending colon adenoma was removed. Microscopic colitis was also excluded. She has a h/o C diff colitis in the past. Her brother of colon cancer. She fractured her left wrist on . She refused colonoscopy during her 07/26/17 consultation with me when she has Klebsiella bacteremia. - History Source History Provided By: Patient, Family Member Limitations to Obtaining History: Clinical Condition - Past Medical History [employer]: Yes: Dementia, Parkinson's, Seizure Cardio/Vascular: Yes: CAD, CHF (diastolic), HTN Pulmonary: Yes: Other (aspiration pneumonia x 2 in 2008) Gastrointestinal: Yes: Diverticulosis, GERD, Hiatal Hernia, Other (chronic diarrhea . Colon adenoma removed 2011.) Hepatobiliary: Yes: Cholelithiasis (s/p cholecystectomy) Renal/: Yes: UTI Infectious Disease: Yes: C-Diff Psych: Yes: Depression Endocrine: Yes: Hypothyroidism - Past Surgical History Past Surgical History: Yes: Cholecystectomy, Colonoscopy (07/18/12 = adenoma removed, diverticulosis seen), Upper Endoscopy (1) - Alcohol/Substance Use Hx Alcohol Use: No History of Substance Use: reports: None - Smoking History Smoking history: Former smoker Have you smoked in the past 12 months: No Aproximately how many cigarettes per day: 0 If you are a former smoker, when did you quit?: Over 40 years ago - Social History Usual Living Arrangement: With Significant Other (has no children) ADL: Family Assistance 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 Place of : [facility] History of Recent Travel: No Home Medications - Allergies Allergies/Adverse Reactions: Allergies Allergy/AdvReac Type Severity Reaction Status Date / Time No Known Drug Allergies Allergy Verified 05/22/18 14:14 - Home Medications Home Medications: Ambulatory Orders Levothyroxine [Synthroid -] 50 mcg PO DAILY 08/18/15 Carbidopa/Levodopa [Carbidopa-Levo 25-100 Tab] 2 each PO TID 10/31/15 Lactobacillus Acidophilus [Bacid -] 1 tab PO BID #100 tab 11/07/15 Megestrol Acetate Oral Susp [Megace Oral Suspension -] 400 mg PO DAILY #30 cup 08/05/17 Psyllium Husk [Metamucil] 425 gm PO DAILY #30 powder 08/05/17 Buspirone HCl [Buspar -] 10 mg PO DAILY PRN 05/09/18 Risperidone [Risperdal] 1 mg PO HS 05/09/18 Alprazolam [Xanax] 0.5 mg PO BID 05/23/18 Sertraline HCl [Zoloft] 100 mg PO DAILY 05/23/18 Family Disease History - Family Disease History Family Disease History: CA: Father (mesothelioma and laryngeal tumors), Brother (colon cancer), Sister (PPM, lung cancer), Other: Mother ( CVA), Sister Review of Systems - Review of Systems Constitutional: reports: Lethargy, Malaise, Weakness Eyes: reports: No Symptoms HENT: reports: Hearing Loss Neck: reports: No Symptoms Cardiovascular: reports: Shortness of Breath Respiratory: reports: Exercise Intolerance Gastrointestinal: reports: No Symptoms Genitourinary: reports: No Symptoms Neurological: reports: Dizziness, Weakness Physical Exam-GI Vital Signs: Vital Signs Temperature 99.2 F 05/23/18 15:21 Pulse Rate 80 05/23/18 15:21 Respiratory Rate 16 05/23/18 15:21 Blood Pressure 140/80 05/23/18 15:21 O2 Sat by Pulse Oximetry (%) 96 05/23/18 10:55 CBC,CMP WBC 13.8 K/mm3 (4.0-10.0) H 05/23/18 06:30 RBC 4.14 M/mm3 (3.60-5.2) 05/23/18 06:30 Hgb 9.4 GM/dL (10.7-15.3) L 05/23/18 06:30 Hct 29.2 % (32.4-45.2) L D 05/23/18 06:30 MCV 70.4 fl (80-96) L 05/23/18 06:30 MCH 22.6 pg (25.7-33.7) L 05/23/18 06:30 MCHC 32.1 g/dl (32.0-36.0) 05/23/18 06:30 RDW 28.8 % (11.6-15.6) H 05/23/18 06:30 Plt Count 549 K/MM3 (134-434) H D 05/23/18 06:30 MPV 6.9 fl (7.5-11.1) L 05/23/18 06:30 Absolute Neuts (auto) 10.2 K/mm3 (1.5-8.0) H 05/23/18 06:30 Neutrophils % 74.3 % (42.8-82.8) 05/23/18 06:30 Lymphocytes % 16.5 % (8-40) 05/23/18 06:30 Monocytes % 7.6 % (3.8-10.2) 05/23/18 06:30 Eosinophils % 1.0 % (0-4.5) 05/23/18 06:30 Basophils % 0.6 % (0-2.0) 05/23/18 06:30 Nucleated RBC % 0 % (0-0) 05/23/18 06:30 Hypochromia 3+ 05/22/18 17:20 Platelet Estimate Significant increase 05/22/18 17:20 Anisocytosis 3+ 05/22/18 17:20 Microcytosis 1+ 05/22/18 17:20 Macrocytosis 1+ 05/22/18 17:20 Rouleaux 1+ 05/22/18 17:20 Sodium 142 mmol/L (136-145) 05/23/18 06:30 Potassium 4.4 mmol/L (3.5-5.1) 05/23/18 06:30 Chloride 109 mmol/L (98-107) H 05/23/18 06:30 Carbon Dioxide 23 mmol/L (21-32) 05/23/18 06:30 Anion Gap 10 MMOL/L (8-16) 05/23/18 06:30 BUN 11 mg/dL (7-18) 05/23/18 06:30 Creatinine 0.6 mg/dL (0.55-1.3) 05/23/18 06:30 Creat Clearance w eGFR > 60 (>60) 09/21/18 06:30 Random Glucose 78 mg/dL (74-106) 05/23/18 06:30 Calcium 9.1 mg/dL (8.5-10.1) 05/23/18 06:30 Phosphorus 3.6 mg/dL (2.5-4.9) 05/23/18 06:30 Magnesium 2.2 mg/dL (1.8-2.4) 05/23/18 06:30 Total Bilirubin 0.2 mg/dL (0.2-1) 05/22/18 17:20 Direct Bilirubin < 0.2 mg/dL (0.0-0.2) 05/22/18 17:20 AST 10 U/L (15-37) L 05/22/18 17:20 ALT 8 U/L (13-61) L 05/22/18 17:20 Alkaline Phosphatase 131 U/L (45-117) H 05/22/18 17:20 LD Total 175 U/L (84-246) 05/22/18 17:20 Total Protein 6.2 g/dl (6.4-8.2) L 05/22/18 17:20 Albumin 2.8 g/dl (3.4-5.0) L 05/22/18 17:20 TSH 1.70 uIU/ml (0.358-3.74) 05/22/18 17:20 Current Medications Generic Name Dose Route Start Last Admin Trade Name Freq PRN Reason Stop Dose Admin Alprazolam 0.5 mg 05/23/18 15:25 Xanax - PO BID PRN ANXIETY Buspirone HCl 10 mg 05/23/18 10:00 Buspar - PO DAILY MISTI Carbidopa/Levodopa 2 each 05/22/18 22:00 05/23/18 14:32 Sinemet 25/100 - PO 2 each TID MISTI Administration Levothyroxine Sodium 50 mcg 05/23/18 07:00 05/23/18 06:20 Synthroid - PO 50 mcg 0700 MISTI Administration Risperidone 1 mg 05/23/18 22:00 Risperdal - PO HS MISTI Sertraline HCl 100 mg 05/23/18 10:00 05/23/18 09:25 Zoloft - PO 100 mg DAILY MISTI Administration Constitutional: Yes: Anxious Eyes: Yes: Conjunctiva Clear HENT: Yes: Normocephalic Neck: Yes: Supple Cardiovascular: Yes: Regular Rate and Rhythm Respiratory: Yes: CTA Bilaterally Gastrointestinal Inspection: Yes: Scars (pauline vertical epigastric incision) ...Auscultate: Yes: Normoactive Bowel Sounds ...Palpate: Yes: Soft, Other (nontender) ...Percussion: Yes: Tympanitic ...Rectal Exam: Yes: Guaiac Negative (soft brown guaiac negative stool) Extremities: Yes: Other (left wrist cast) Edema: No Labs: CBC, BMP 05/23/18 06:30 05/23/18 06:30 INR, PTT INR 1.13 (0.83-1.09) H 05/23/18 06:30 Laboratory Tests 08/03/17 08/03/17 08/03/17 08:00 08:00 08:00 Retic Count 1.76 H Iron 87 TIBC 139 L Iron Saturation 63 H Ferritin 239.986 Problem List - Problems (1) Anemia Assessment/Plan: Given the microcytic anemia , FH of colon cancer, her personal h/o colon adenoma and a large hiatal hernia I have advised Nandini to undergo both an EGD and a colonoscopy. I explained that potential bleeding sources include a colon cancer, a hiatal hernia, gastric or duodenal ulcer, GERD, AVMs among other possibilities. I have informed her, her sister and her great nephew of the need for a good prep, anesthesia and of the potential for such complications a perforation and hemorrhage that could lead to the need for surgery and transfusions. I answered their questions. Nandini is refusing endoscopic intervention but will allow for a CT scan. I left my business card. If she changes her mind please contact us. I will give a PPI empirically. Given that her stool is occult negative for blood a hematology consultation should be considered. Code(s): D64.9 - ANEMIA, UNSPECIFIED Qualifiers: Other causes of anemia: other cause, not classified Qualified Code(s): D64.89 - Other specified anemias (2) Family history of colon cancer Code(s): Z80.0 - FAMILY HISTORY OF MALIGNANT NEOPLASM OF DIGESTIVE ORGANS (3) Hiatal hernia Code(s): K44.9 - DIAPHRAGMATIC HERNIA WITHOUT OBSTRUCTION OR GANGRENE (4) Chronic diarrhea Code(s): K52.9 - NONINFECTIVE GASTROENTERITIS AND COLITIS, UNSPECIFIED (5) Clostridium difficile colitis Code(s): A04.72 - ENTEROCOLITIS D/T CLOSTRIDIUM DIFFICILE, NOT SPCF RECUR (6) Colon adenoma Code(s): D12.6 - BENIGN NEOPLASM OF COLON, UNSPECIFIED (7) Diverticula of colon Code(s): K57.30 - DVRTCLOS OF LG INT W/O PERFORATION OR ABSCESS W/O BLEEDING
[2018-05-23 17:27] LABS: BASO % 0.4 % (0-2.0); EOS % 1.3 % (0-4.5); HEMATOCRIT 28.2 % (32.4-45.2); HEMOGLOBIN 9.2 GM/dL (10.7-15.3); LYMPH % 19.1 % (8-40); MCH 22.9 pg (25.7-33.7); MCHC 32.6 g/dl (32.0-36.0); MEAN CELL VOLUME 70.1 fl (80-96); MEAN PLT VOLUME 7.2 fl (7.5-11.1); MONO % 6.8 % (3.8-10.2); NEUT % 72.4 % (42.8-82.8); PLATELET COUNT 621 K/MM3 (134-434); RBC 4.03 M/mm3 (3.60-5.2); RDW 29.2 % (11.6-15.6); WHITE BLOOD COUNT 13.9 K/mm3 (4.0-10.0)
[2018-05-23 17:32] LABS: ADD RBC MORPHOLOGY YES
[2018-05-23] MEDS ORDERED: PT OWN MED DRAWER 7, Y5N ONE (21:23)
[2018-05-23] MEDS: PANTOPRAZOLE 40 MG TABLET (FP) PO SCH (21:27)
[2018-05-23] MEDS: risperiDONE 1 MG TABLET (FP) PO SCH (21:27)
[2018-05-24] MEDS: LEVOTHYROXINE NA 50 MCG TABLET (FP) PO SCH (06:02)
[2018-05-24] MEDS: CARBIDOPA/LEVODOPA 25/100 TABLET (FP) PO SCH ×3 (06:02→21:20)
[2018-05-24 07:09] LABS: BASO % 0.6 % (0-2.0); EOS % 2.4 % (0-4.5); HEMATOCRIT 27.6 % (32.4-45.2); HEMOGLOBIN 8.6 GM/dL (10.7-15.3); LYMPH % 22.2 % (8-40); MCH 22.2 pg (25.7-33.7); MCHC 31.2 g/dl (32.0-36.0); MEAN CELL VOLUME 71.3 fl (80-96); MEAN PLT VOLUME 7.1 fl (7.5-11.1); MONO % 8.3 % (3.8-10.2); NEUT % 66.5 % (42.8-82.8); PLATELET COUNT 510 K/MM3 (134-434); RBC 3.87 M/mm3 (3.60-5.2); RDW 29.3 % (11.6-15.6); RETICULOCYTES 2.04 % (0.5-1.5); WHITE BLOOD COUNT 13.1 K/mm3 (4.0-10.0)
[2018-05-24 08:01] LABS: ANION GAP 6 MMOL/L (8-16); BLOOD UREA NITROGEN 12 mg/dL (7-18); CALCIUM 8.6 mg/dL (8.5-10.1); CHLORIDE 106 mmol/L (98-107); CO2 27 mmol/L (21-32); CREATININE 0.7 mg/dL (0.55-1.3); GLUCOSE,RANDOM 68 mg/dL (74-106); POTASSIUM 4.2 mmol/L (3.5-5.1); SODIUM 138 mmol/L (136-145)
[2018-05-24] MEDS: PANTOPRAZOLE 40 MG TABLET (FP) PO SCH ×2 (10:38→21:19)
[2018-05-24] MEDS: SERTRALINE HCL 50 MG TABLET (FP) PO SCH (10:39)
--- NOTE | 2018-05-24 11:41 | PN ---
Physical Exam: SUBJECTIVE: Patient seen and examined at the bedside. confused at baseline. OBJECTIVE: abd pelvis ct completed started on iron infusion per heme. Vital Signs Period Temp Pulse Resp BP Sys/Riggins Pulse Ox Last 24 Hr 98.1 F-99.2 F 75-94 16-22 112-140/56-80 96-96 GENERAL: The patient is awake, alert, confused at baseline HEAD: Normal with no signs of trauma. EYES: PERRL, extraocular movements intact, sclera anicteric, conjunctiva clear. No ptosis. ENT: Ears normal, nares patent, oropharynx clear without exudates, moist mucous membranes. NECK: Trachea midline, full range of motion, supple. LUNGS: Breath sounds equal, clear to auscultation anteriorly HEART: Regular rate and rhythm ABDOMEN: Soft, nontender, nondistended, normoactive bowel sounds, no guarding EXTREMITIES: left wrist fracture, on cast x 6 weeks. NEUROLOGICAL:Normal speech, gait not observed. mostly wheelchair bound, intermittently can ambulate with walker with major assistance PSYCH: Normal mood, normal affect. SKIN: Warm, dry, normal turgor, no rashes or lesions noted Laboratory Results - last 24 hr 05/22/18 05/23/18 05/24/18 17:20 16:30 06:00 WBC 13.9 H RBC 4.03 Hgb 9.2 L Hct 28.2 L MCV 70.1 L MCH 22.9 L MCHC 32.6 RDW 29.2 H Plt Count 621 H MPV 7.2 L Absolute Neuts (auto) 10.1 H Neutrophils % 72.4 Lymphocytes % 19.1 Monocytes % 6.8 Eosinophils % 1.3 Basophils % 0.4 Nucleated RBC % 0 Retic Count Haptoglobin 253 H Sodium 138 Potassium 4.2 Chloride 106 Carbon Dioxide 27 Anion Gap 6 L BUN 12 Creatinine 0.7 Creat Clearance w eGFR > 60 Random Glucose 68 L Calcium 8.6 Ferritin 13.0 C-Reactive Protein 2.3 H Vitamin B12 400 Serum Folate 17 TSH 2.68 05/24/18 06:00 WBC 13.1 H RBC 3.87 Hgb 8.6 L Hct 27.6 L MCV 71.3 L MCH 22.2 L MCHC 31.2 L RDW 29.3 H Plt Count 510 H MPV 7.1 L Absolute Neuts (auto) 8.7 H Neutrophils % 66.5 Lymphocytes % 22.2 Monocytes % 8.3 Eosinophils % 2.4 D Basophils % 0.6 Nucleated RBC % 0 Retic Count 2.04 H D Haptoglobin Sodium Potassium Chloride Carbon Dioxide Anion Gap BUN Creatinine Creat Clearance w eGFR Random Glucose Calcium Ferritin C-Reactive Protein Vitamin B12 Serum Folate TSH Active Medications Generic Name Dose Route Start Last Admin Trade Name Freq PRN Reason Stop Dose Admin Alprazolam 0.5 mg 05/23/18 15:25 Xanax - PO BID PRN ANXIETY Buspirone HCl 10 mg 05/24/18 10:00 Buspar - PO DAILY MISTI Carbidopa/Levodopa 2 each 05/22/18 22:00 05/24/18 06:02 Sinemet 25/100 - PO 2 each TID MISTI Administration Levothyroxine Sodium 50 mcg 05/23/18 07:00 05/24/18 06:02 Synthroid - PO 50 mcg 0700 MISTI Administration Pantoprazole Sodium 40 mg 05/23/18 22:00 05/24/18 10:38 Protonix - PO 40 mg BID MISTI Administration Risperidone 1 mg 05/23/18 22:00 05/23/18 21:27 Risperdal - PO 1 mg HS MISTI Administration Sertraline HCl 100 mg 05/23/18 10:00 05/24/18 10:39 Zoloft - PO 100 mg DAILY MISTI Administration ASSESSMENT/PLAN: Patient is an 86 year old female with a significant past medical history of CHF (diastolic), CAD, HTN, hypothyroidism and chronic intermittent diarrhea, dementia, 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 She presents to the ED for symptomatic anemia and was found to have a hmg of 5. She has baseline dementia. Her sister is in the room and provides all of the history. Sister is HCP. imaging: abd ct: cardiomegaly, extensive chronic lung disease, large hiatal hernia, mild splenomegaly, fecal impaction. Heme: Symptomatic Anemia, resolved: hmg 5.7 on admission, given 2 units of prbc, hmg/ hct stable post blood transfusion (hmg 8.6). Stool for occult blood negative x 2. Seen by GI, notes reviewed, started on PPI and abd/ct ordered Thrombocytosis: will continue to monitor CBC with repeat labs in the a.m. Heme consult. No signs of bleeding. Leukocytosis: Has been elevated on previous admission. No signs of infection currently. etiology of leukocytosis unclear. will order blood culture. Card: Hypothyroidism: on synthroid Diastolic CHF: Monitor intake and output. Hypertension: BP stable. Neuro Parkinsons: on sinemet Dementia: per sister, at baseline - on buspar 10mg daily fen tolerating PO monitor electrolytes regular diet full code. started on iv iron Visit type - Emergency Visit Emergency Visit: Yes ED Registration Date: 05/22/18 Care time: The patient presented to the Emergency Department on the above date and was hospitalized for further evaluation of their emergent condition. - New Patient This patient is new to me today: No - Critical Care Critical Care patient: No - Discharge Referral Referred to [facility] Med P.C.: No
--- NOTE | 2018-05-24 12:57 | CONSULT ---
Consult Consult Specialty:: Hematology Referred by:: Medicine Reason for Consultation:: Anemia - History of Present Illness Chief Complaint: Elderly female, poor performance status, minimally mobile, lives at home but requires assistance with ADLs, referred to ER with incidentally noted anemia - Hb 5.5. Now improved following transfusion 2 units. As per ordnance engineer and business info consultant, no preceding symptoms, no history suspicious for GI bleed, no hematuria. Hb >10 in August 2017, and normocytic. 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 Colon adenoma removed 2011.) Hepatobiliary: Yes: Cholelithiasis (s/p cholecystectomy) Renal/: Yes: UTI Infectious Disease: Yes: C-Diff Psych: Yes: Depression Endocrine: Yes: Hypothyroidism - Past Surgical History Past Surgical History: Yes: Cholecystectomy, Colonoscopy (07/18/12 = adenoma removed, diverticulosis seen), Upper Endoscopy (1) - Alcohol/Substance Use Hx Alcohol Use: No History of Substance Use: reports: None - Smoking History Smoking history: Former smoker Have you smoked in the past 12 months: No Aproximately how many cigarettes per day: 0 If you are a former smoker, when did you quit?: Over 40 years ago - Social History Usual Living Arrangement: With Significant Other (has no children) ADL: Family Assistance 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 History of Recent Travel: No Home Medications - Allergies Allergies/Adverse Reactions: Allergies Allergy/AdvReac Type Severity Reaction Status Date / Time No Known Drug Allergies Allergy Verified 05/22/18 14:14 - Home Medications Home Medications: Ambulatory Orders Levothyroxine [Synthroid -] 50 mcg PO DAILY 08/18/15 Carbidopa/Levodopa [Carbidopa-Levo 25-100 Tab] 2 each PO TID 10/31/15 Lactobacillus Acidophilus [Bacid -] 1 tab PO BID #100 tab 11/07/15 Megestrol Acetate Oral Susp [Megace Oral Suspension -] 400 mg PO DAILY #30 cup 08/05/17 Psyllium Husk [Metamucil] 425 gm PO DAILY #30 powder 08/05/17 Buspirone HCl [Buspar -] 10 mg PO DAILY PRN 05/09/18 Risperidone [Risperdal] 1 mg PO HS 05/09/18 Alprazolam [Xanax] 0.5 mg PO BID 05/23/18 Sertraline HCl [Zoloft] 100 mg PO DAILY 05/23/18 Family Disease History - Family Disease History Family Disease History: CA: Father (mesothelioma and laryngeal tumors), Brother (colon cancer), Sister (PPM, lung cancer), Other: Mother ( CVA), Sister Review of Systems - Review of Systems Constitutional: reports: Weakness. denies: Night Sweats, Unintentional Wgt. Loss Eyes: denies: Recent Change in Vision HENT: reports: Hearing Loss. denies: Difficult Swallowing Neck: reports: No Symptoms Cardiovascular: denies: Edema, Shortness of Breath Respiratory: denies: Cough, Hemoptysis Gastrointestinal: denies: Abdominal Pain, Diarrhea, Nausea, Rectal Bleeding, Vomiting Blood Genitourinary: reports: No Symptoms Neurological: reports: Pre-Existing Deficit, Unsteady Gait, Weakness Endocrine: denies: Unexplained Weight Gain, Unexplained Weight Loss Hematology/Lymphatic: denies: Easily Bruised, Excessive Bleeding Physical Exam Vital Signs: Vital Signs Temperature 98.2 F 05/24/18 10:36 Pulse Rate 75 05/24/18 10:36 Respiratory Rate 20 05/24/18 10:36 Blood Pressure 112/56 L 05/24/18 10:36 O2 Sat by Pulse Oximetry (%) 96 05/24/18 03:00 Constitutional: Yes: Calm, Pallor, Thin Eyes: Yes: Conjunctiva Clear HENT: Yes: Atraumatic Neck: Yes: Supple, Trachea Midline. No: Lymphadenopathy Cardiovascular: Yes: S1, S2. No: Gallop, Murmur Respiratory: Yes: Regular, CTA Bilaterally Gastrointestinal: Yes: Normal Bowel Sounds. No: Abdomen, Obese, Palpable Mass, Splenomegaly Musculoskeletal: Yes: Muscle Weakness Extremities: Yes: WNL Edema: No Integumentary: No: Petechiae, Rash Neurological: Yes: Alert. No: Oriented (Hard at hearing) Psychiatric: Yes: Alert Labs: CBC, BMP 05/24/18 06:00 05/24/18 06:00 Assessment/Plan Elderly female, with poor performance status, with development of severe iron deficiency anemia over the past 9 months. Etiology obscure, but have to assume attributable to occult GI hemorrhage, possibly episodic - hemoccult reported negative presently. GI consult noted - in light of age and poor performance status not unreasonable to hold off on endoscopy now while no suspicion of active bleeding. Would take advantage of this admission to replete iron stores intravenously. CT scan abdomen pending - will follow.
[2018-05-24] MEDS ORDERED: IRON SUCROSE INJECTION 200 MG in SODIUM CHLORIDE 90 ML IVPB ONE (14:00)
[2018-05-24] MEDS: busPIRone HCL 10 MG TABLET (FP) PO SCH (14:19)
[2018-05-24] MEDS ORDERED: PT OWN MED DRAWER 7, Y5N ONE ×2 (18:04→19:54)
[2018-05-24] MEDS: POLYETHYLENE GLYCOL 3350 119 GM BTL PO SCH (21:20)
[2018-05-24] MEDS: risperiDONE 1 MG TABLET (FP) PO SCH (21:20)
[2018-05-24] MEDS: DOCUSATE SODIUM 100 MG CAPSULE (FP) PO SCH (21:20)
[2018-05-25] MEDS: CARBIDOPA/LEVODOPA 25/100 TABLET (FP) PO SCH ×3 (05:15→22:00)
[2018-05-25] MEDS: LEVOTHYROXINE NA 50 MCG TABLET (FP) PO SCH (06:00)
[2018-05-25 06:47] LABS: SERUM IRON SATURATION 5 % (15-55); TOTAL IRON BINDING CAPACITY 356 ug/dL (250-450); UIBC 338 ug/dL (118-369)
[2018-05-25] MEDS ORDERED: PT OWN MED DRAWER 7, Y5N ONE ×3 (10:41→15:09)
[2018-05-25] MEDS: SERTRALINE HCL 50 MG TABLET (FP) PO SCH (10:53)
[2018-05-25] MEDS: PANTOPRAZOLE 40 MG TABLET (FP) PO SCH ×2 (10:53→22:00)
[2018-05-25] MEDS: busPIRone HCL 10 MG TABLET (FP) PO SCH (10:54)
[2018-05-25 12:17] LABS: BASO % 0.9 % (0-2.0); EOS % 1.8 % (0-4.5); HEMATOCRIT 29.7 % (32.4-45.2); HEMOGLOBIN 9.3 GM/dL (10.7-15.3); LYMPH % 14.9 % (8-40); MCH 22.7 pg (25.7-33.7); MCHC 31.4 g/dl (32.0-36.0); MEAN CELL VOLUME 72.2 fl (80-96); MEAN PLT VOLUME 6.8 fl (7.5-11.1); MONO % 5.3 % (3.8-10.2); NEUT % 77.1 % (42.8-82.8); PLATELET COUNT 535 K/MM3 (134-434); RBC 4.11 M/mm3 (3.60-5.2); RDW 30.6 % (11.6-15.6); WHITE BLOOD COUNT 10.5 K/mm3 (4.0-10.0)
[2018-05-25 13:06] LABS: ALBUMIN 2.7 g/dl (3.4-5.0); ALK PHOS 122 U/L (45-117); ANION GAP 12 MMOL/L (8-16); BILIRUBIN,TOTAL 0.4 mg/dL (0.2-1); BLOOD UREA NITROGEN 15 mg/dL (7-18); CALCIUM 8.7 mg/dL (8.5-10.1); CHLORIDE 108 mmol/L (98-107); CO2 22 mmol/L (21-32); GLUCOSE,RANDOM 179 mg/dL (74-106); POTASSIUM 3.8 mmol/L (3.5-5.1); SGOT/AST 7 U/L (15-37); SGPT/ALT < 6 U/L (13-61); SODIUM 141 mmol/L (136-145); TOT PROT 5.8 g/dl (6.4-8.2)
--- NOTE | 2018-05-25 13:21 | PN ---
Progress Note (short form) - Note Progress Note: Patient seen in follow up. No new complaints. No significant events overnight. Received IV iron yesterday without complication. Inpatient Meds reviewed. Current Medications Generic Name Dose Route Start Last Admin Trade Name Freq PRN Reason Stop Dose Admin Alprazolam 0.5 mg 05/23/18 15:25 05/24/18 21:20 Xanax - PO 0.5 mg BID PRN Administration ANXIETY Buspirone HCl 10 mg 05/24/18 10:00 05/25/18 10:54 Buspar - PO 10 mg DAILY MISTI Administration Carbidopa/Levodopa 2 each 05/22/18 22:00 05/25/18 05:15 Sinemet 25/100 - PO 2 each TID MISTI Administration Docusate Sodium 300 mg 05/24/18 22:00 05/24/18 21:20 Colace - PO 300 mg HS MISTI Administration Levothyroxine Sodium 50 mcg 05/23/18 07:00 05/25/18 06:00 Synthroid - PO 50 mcg 0700 MISTI Administration Pantoprazole Sodium 40 mg 05/23/18 22:00 05/25/18 10:53 Protonix - PO 40 mg BID MISTI Administration Polyethylene Glycol 17 gm 05/24/18 22:00 05/24/18 21:20 Miralax (For Daily Use) - PO 17 gm BID MISTI Administration Risperidone 1 mg 05/23/18 22:00 05/24/18 21:20 Risperdal - PO 1 mg HS MISTI Administration Sertraline HCl 100 mg 05/23/18 10:00 05/25/18 10:53 Zoloft - PO 100 mg DAILY MISTI Administration On Examination: Last Vital Signs Temp Pulse Resp BP Pulse Ox 97.9 F 100 H 20 119/68 95 05/25/18 06:31 05/25/18 10:52 05/25/18 10:52 05/25/18 10:52 05/24/18 19:21 General: In no acute distress, lying comfortably in bed. Extremities: No pallor or icterus. No pedal edema. CVS: S1, S2, no gallop or murmur. Chest: Clear. Abdomen: Non-distended, non-tender, no organomegaly or masses. Neuro: Alert, somewhat oriented, non-focal. Labs: CBC, BMP 05/25/18 12:07 05/25/18 12:07 Assessment. Elderly female, with poor performance status, with development of severe iron deficiency anemia over the past 6 months. Etiology obscure, but have to assume attributable to occult GI hemorrhage, possibly episodic - hemoccult reported negative presently. GI consult noted - in light of age and poor performance status not unreasonable to hold off on endoscopy now while no suspicion of active bleeding.\Hb stable past several days. Would take advantage of this admission to replete iron stores intravenously. Administer additional 200mgs Venofer today. CT scan read reviewed - unremarkable.
[2018-05-25] MEDS: POLYETHYLENE GLYCOL 3350 119 GM BTL PO SCH ×2 (13:45→22:01)
--- NOTE | 2018-05-25 16:00 | PN ---
Physical Exam: SUBJECTIVE: Patient seen and examined at the bedside. OBJECTIVE: Vital Signs Period Temp Pulse Resp BP Sys/Riggins Pulse Ox Last 24 Hr 97.9 F-98.4 F 91-100 20-20 95-145/47-72 95 GENERAL: The patient is awake, alert, confused at baseline HEAD: Normal with no signs of trauma. EYES: PERRL, extraocular movements intact, sclera anicteric, conjunctiva clear. No ptosis. ENT: Ears normal, nares patent, oropharynx clear without exudates, moist mucous membranes. NECK: Trachea midline, full range of motion, supple. LUNGS: Breath sounds equal, clear to auscultation anteriorly HEART: Regular rate and rhythm ABDOMEN: Soft, nontender, nondistended, normoactive bowel sounds, no guarding EXTREMITIES: left wrist fracture, on cast x 6 weeks. NEUROLOGICAL:Normal speech, gait not observed. mostly wheelchair bound, intermittently can ambulate with walker with major assistance PSYCH: Normal mood, normal affect. SKIN: Warm, dry, normal turgor, no rashes or lesions noted Laboratory Results - last 24 hr 05/24/18 05/25/18 05/25/18 06:00 12:07 12:07 WBC 10.5 H RBC 4.11 Hgb 9.3 L Hct 29.7 L MCV 72.2 L MCH 22.7 L MCHC 31.4 L RDW 30.6 H Plt Count 535 H MPV 6.8 L Absolute Neuts (auto) 8.1 H Neutrophils % 77.1 Lymphocytes % 14.9 D Monocytes % 5.3 Eosinophils % 1.8 Basophils % 0.9 Nucleated RBC % 0 Sodium 141 Potassium 3.8 Chloride 108 H Carbon Dioxide 22 Anion Gap 12 BUN 15 Creatinine 1.0 Creat Clearance w eGFR 52.45 Random Glucose 179 H Calcium 8.7 Iron 18 L TIBC 356 Iron Saturation 5 L Total Bilirubin 0.4 AST 7 L ALT < 6 L Alkaline Phosphatase 122 H Total Protein 5.8 L Albumin 2.7 L Active Medications Generic Name Dose Route Start Last Admin Trade Name Freq PRN Reason Stop Dose Admin Alprazolam 0.5 mg 05/23/18 15:25 05/24/18 21:20 Xanax - PO 0.5 mg BID PRN Administration ANXIETY Buspirone HCl 10 mg 05/24/18 10:00 05/25/18 10:54 Buspar - PO 10 mg DAILY MISTI Administration Carbidopa/Levodopa 2 each 05/22/18 22:00 05/25/18 15:01 Sinemet 25/100 - PO 2 each TID MISTI Administration Docusate Sodium 300 mg 05/24/18 22:00 05/24/18 21:20 Colace - PO 300 mg HS MISTI Administration Iron Sucrose 200 mg/ Sodium 100 mls @ 100 mls/hr 05/25/18 13:30 Chloride IVPB 05/27/18 23:59 DAILY@0800 MISTI Levothyroxine Sodium 50 mcg 05/23/18 07:00 05/25/18 06:00 Synthroid - PO 50 mcg 0700 MISTI Administration Pantoprazole Sodium 40 mg 05/23/18 22:00 05/25/18 10:53 Protonix - PO 40 mg BID MISTI Administration Polyethylene Glycol 17 gm 05/24/18 22:00 05/25/18 13:45 Miralax (For Daily Use) - PO 17 gm BID MISTI Administration Risperidone 1 mg 05/23/18 22:00 05/24/18 21:20 Risperdal - PO 1 mg HS MISTI Administration Sertraline HCl 100 mg 05/23/18 10:00 05/25/18 10:53 Zoloft - PO 100 mg DAILY MISTI Administration ASSESSMENT/PLAN: Patient is an 86 year old female with a significant past medical history of CHF (diastolic), CAD, HTN, hypothyroidism and chronic intermittent diarrhea, dementia, 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 She presents to the ED for symptomatic anemia and was found to have a hmg of 5. She has baseline dementia. Her sister is in the room and provides all of the history. Sister is HCP. imaging: abd ct: 1. cardiomegaly and extensive chronic lung disease, large hiatal hernia , mild splenomegaly, fecal impaction and prominent endometrium. Heme: Symptomatic Anemia, resolved hmg 5.7 on admission, given 2 units of prbc, hmg/hct stable post blood transfusion (hmg 9.3) Stool for occult blood negative x 2. Seen by GI, notes reviewed, started on PPI. Discussed the findings of the abd/ct pelvis with patient sister and family who are unaware of any lung disease. They report that patient does not have any vaginal bleeding at home. IV iron ordered per hematology. Thrombocytosis: will continue to monitor CBC with repeat labs in the a.m. Leukocytosis: Has been elevated on previous admission. No signs of infection currently. etiology of leukocytosis unclear. blood cultures pending Card: Hypothyroidism: on synthroid Diastolic CHF: Monitor intake and output. Hypertension: BP stable. Neuro Parkinsons: on sinemet Dementia: per sister, at baseline - on buspar 10mg daily fen tolerating PO monitor electrolytes regular diet full code. Visit type - Emergency Visit Emergency Visit: Yes ED Registration Date: 05/25/18 Care time: The patient presented to the Emergency Department on the above date and was hospitalized for further evaluation of their emergent condition. - New Patient This patient is new to me today: No - Critical Care Critical Care patient: No - Discharge Referral Referred to [facility] No
[2018-05-25] MEDS: IRON SUCROSE INJECTION 200 MG in SODIUM CHLORIDE 90 ML IVPB SCH (16:35)
[2018-05-25] MEDS: DOCUSATE SODIUM 100 MG CAPSULE (FP) PO SCH (22:00)
[2018-05-25] MEDS: risperiDONE 1 MG TABLET (FP) PO SCH (23:28)
[2018-05-26] MEDS: LEVOTHYROXINE NA 50 MCG TABLET (FP) PO SCH (06:01)
[2018-05-26] MEDS: CARBIDOPA/LEVODOPA 25/100 TABLET (FP) PO SCH ×2 (06:01→15:00)
[2018-05-26] MEDS: PANTOPRAZOLE 40 MG TABLET (FP) PO SCH (09:24)
[2018-05-26] MEDS: SERTRALINE HCL 50 MG TABLET (FP) PO SCH (09:24)
[2018-05-26] MEDS: POLYETHYLENE GLYCOL 3350 119 GM BTL PO SCH (09:25)
[2018-05-26] MEDS: busPIRone HCL 10 MG TABLET (FP) PO SCH (09:25)
[2018-05-26 09:45] LABS: BASO % 0.7 % (0-2.0); EOS % 1.1 % (0-4.5); HEMATOCRIT 31.1 % (32.4-45.2); HEMOGLOBIN 9.4 GM/dL (10.7-15.3); LYMPH % 12.8 % (8-40); MCH 22.2 pg (25.7-33.7); MCHC 30.3 g/dl (32.0-36.0); MEAN CELL VOLUME 73.5 fl (80-96); MEAN PLT VOLUME 7.2 fl (7.5-11.1); MONO % 4.7 % (3.8-10.2); NEUT % 80.7 % (42.8-82.8); PLATELET COUNT 442 K/MM3 (134-434); RBC 4.23 M/mm3 (3.60-5.2); RDW 31.4 % (11.6-15.6); WHITE BLOOD COUNT 14.5 K/mm3 (4.0-10.0)
--- NOTE | 2018-05-26 10:29 | PN ---
GI Progress Note Subjective: GI NOte: NO bleeding has become evident. I made an addendum to the GI consultation. 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 The increases the possibility of recurrent ulceration causing this anemia. The hematology consultation is appreciated. CT scan reveals no obvious neoplasm or anemia source.Nandini again declines endoscopy and I ave not been contacted by her sister over the weekend about any change in decision regarding endoscopic evaluation. I discussed this with Ralph Pedro NP. The plan is to discharge after another Venofer infusion. I advised empiric PPI therapy. - Objective Vital Signs: Vital Signs Temperature 98.9 F 05/26/18 03:00 Pulse Rate 93 H 05/26/18 03:00 Respiratory Rate 20 05/26/18 03:00 Blood Pressure 124/55 L 05/26/18 03:00 O2 Sat by Pulse Oximetry (%) 95 05/26/18 04:00 Laboratory Tests 05/22/18 05/23/18 05/24/18 17:20 06:30 06:00 Hgb 9.4 L Retic Count 2.04 H D Haptoglobin 253 H 05/26/18 09:18 Hgb 9.4 L Retic Count Haptoglobin Constitutional: No Distress ...Auscultate: Yes: Normoactive Bowel Sounds ...Palpate: Yes: Soft, Other (nontender) Labs: CBC, BMP 05/26/18 09:18 INR, PTT INR 1.13 (0.83-1.09) H 05/23/18 06:30 Problem List - Problems (1) Anemia Assessment/Plan: The patient and her family are not consenting for EGD and a colonoscopy. The hematology consultation is appreciated. CT scan reveals no obvious neoplasm or anemia source. Please discharge with PPI empirically. Code(s): D64.9 - ANEMIA, UNSPECIFIED Qualifiers: Other causes of anemia: other cause, not classified Qualified Code(s): D64.89 - Other specified anemias (2) Family history of colon cancer Code(s): Z80.0 - FAMILY HISTORY OF MALIGNANT NEOPLASM OF DIGESTIVE ORGANS (3) Hiatal hernia Code(s): K44.9 - DIAPHRAGMATIC HERNIA WITHOUT OBSTRUCTION OR GANGRENE (4) Chronic diarrhea Code(s): K52.9 - NONINFECTIVE GASTROENTERITIS AND COLITIS, UNSPECIFIED (5) Clostridium difficile colitis Code(s): A04.72 - ENTEROCOLITIS D/T CLOSTRIDIUM DIFFICILE, NOT SPCF RECUR (6) Colon adenoma Code(s): D12.6 - BENIGN NEOPLASM OF COLON, UNSPECIFIED (7) Diverticula of colon Code(s): K57.30 - DVRTCLOS OF LG INT W/O PERFORATION OR ABSCESS W/O BLEEDING
[2018-05-26] MEDS: IRON SUCROSE INJECTION 200 MG in SODIUM CHLORIDE 90 ML IVPB SCH (10:36)
[2018-05-26 10:42] LABS: ALBUMIN 2.8 g/dl (3.4-5.0); ALK PHOS 130 U/L (45-117); ANION GAP 9 MMOL/L (8-16); BILIRUBIN,TOTAL 0.3 mg/dL (0.2-1); BLOOD UREA NITROGEN 15 mg/dL (7-18); CALCIUM 8.8 mg/dL (8.5-10.1); CHLORIDE 107 mmol/L (98-107); CO2 24 mmol/L (21-32); CREATININE 0.9 mg/dL (0.55-1.3); GLUCOSE,RANDOM 124 mg/dL (74-106); MAGNESIUM 2.1 mg/dL (1.8-2.4); POTASSIUM 3.7 mmol/L (3.5-5.1); SGOT/AST 9 U/L (15-37); SGPT/ALT < 6 U/L (13-61); SODIUM 140 mmol/L (136-145); TOT PROT 6.1 g/dl (6.4-8.2)
--- NOTE | 2018-05-26 10:51 | DS ---
Physical Exam: SUBJECTIVE: Patient seen and examined. patient for discharge today. her sister is her HCP and feels patient will do better at home. refusing services or rehab. OBJECTIVE: patient will need to 2 more doses of iv venofer - arranged outpatient Vital Signs Period Temp Pulse Resp BP Sys/Riggins Pulse Ox Last 24 Hr 98 F-98.9 F 93-100 20-20 95-124/47-68 95 PHYSICAL EXAM GENERAL: The patient is awake, alert, confused at baseline HEAD: Normal with no signs of trauma. EYES: PERRL, extraocular movements intact, sclera anicteric, conjunctiva clear. No ptosis. ENT: Ears normal, nares patent, oropharynx clear without exudates, moist mucous membranes. NECK: Trachea midline, full range of motion, supple. LUNGS: Breath sounds equal, clear to auscultation anteriorly HEART: Regular rate and rhythm ABDOMEN: Soft, nontender, nondistended, normoactive bowel sounds, no guarding EXTREMITIES: left wrist fracture, on cast x 6 weeks. NEUROLOGICAL:Normal speech, gait not observed. mostly wheelchair bound, intermittently can ambulate with walker with major assistance PSYCH: Normal mood, normal affect. SKIN: Warm, dry, normal turgor, no rashes or lesions noted LABS Laboratory Results - last 24 hr 05/22/18 05/24/18 05/25/18 17:20 06:00 12:07 WBC 10.5 H RBC 4.11 Hgb 9.3 L Hct 29.7 L MCV 72.2 L MCH 22.7 L MCHC 31.4 L RDW 30.6 H Plt Count 535 H MPV 6.8 L Absolute Neuts (auto) 8.1 H Neutrophils % 77.1 Lymphocytes % 14.9 D Monocytes % 5.3 Eosinophils % 1.8 Basophils % 0.9 Nucleated RBC % 0 Sodium Potassium Chloride Carbon Dioxide Anion Gap BUN Creatinine Creat Clearance w eGFR Random Glucose Calcium Magnesium Total Bilirubin AST ALT Alkaline Phosphatase Total Protein Albumin Carcinoembryonic Ag 3.0 Blood Type A POSITIVE Antibody Screen Negative Crossmatch See Detail 05/25/18 05/26/18 05/26/18 12:07 :18 09:18 WBC 14.5 H RBC 4.23 Hgb 9.4 L Hct 31.1 L MCV 73.5 L MCH 22.2 L MCHC 30.3 L RDW 31.4 H Plt Count 442 H MPV 7.2 L Absolute Neuts (auto) 11.7 H Neutrophils % 80.7 Lymphocytes % 12.8 Monocytes % 4.7 Eosinophils % 1.1 Basophils % 0.7 Nucleated RBC % 0 Sodium 141 140 Potassium 3.8 3.7 Chloride 108 H 107 Carbon Dioxide 22 24 Anion Gap 12 9 BUN 15 15 Creatinine 1.0 0.9 Creat Clearance w eGFR 52.45 59.23 Random Glucose 179 H 124 H Calcium 8.7 8.8 Magnesium 2.1 Total Bilirubin 0.4 0.3 AST 7 L 9 L ALT < 6 L < 6 L Alkaline Phosphatase 122 H 130 H Total Protein 5.8 L 6.1 L Albumin 2.7 L 2.8 L Carcinoembryonic Ag Blood Type Antibody Screen Crossmatch HOSPITAL COURSE: Date of Admission:05/25/18 Date of Discharge: 05/26/18 Hospital course by problem list: Patient is an 87 year old female with a significant past medical history of CHF (diastolic), CAD, HTN, hypothyroidism and chronic intermittent diarrhea, dementia, 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 She presents to the ED for symptomatic anemia and was found to have a hmg of 5. She has baseline dementia. Her sister is in the room and provides all of the history. Sister is HCP. imaging: abd ct: 1. cardiomegaly and extensive chronic lung disease, large hiatal hernia , mild splenomegaly, fecal impaction and prominent endometrium. Heme: Symptomatic Anemia, resolved hmg 5.7 on admission, given 2 units of prbc, hmg/hct stable post blood transfusion (hmg 9.4) Stool for occult blood negative x 2. Seen by GI. patient declining EGD and colonoscopy. I discussed with patient's sister who also agrees with patient's decision not to undergo invasive testing at this time. Patient to be discharged back home, refusing rehab Discussed the findings of the abd/ct pelvis with patient sister and family who are unaware of any lung disease. They report that patient does not have any vaginal bleeding at home. During admission, patient was given IV venofer, 3 doses, she will receive 2 more doses outpatient via endoscopy suite at [place]. Thrombocytosis: outpatient lab monitoring. Leukocytosis: Has been elevated on previous admission. No signs of infection currently. etiology of leukocytosis unclear. blood cultures negative. Card: Hypothyroidism: on synthroid Diastolic CHF: Monitor intake and output. Hypertension: BP stable. Neuro Parkinsons: on sinemet Dementia: per sister, at baseline - on buspar 10mg daily fen tolerating PO monitor electrolytes regular diet full code. Minutes to complete discharge: 60 Discharge Summary Reason For Visit: ANEMIA Current Active Problems Anemia (Acute) Family history of colon cancer (Acute) Hiatal hernia (Acute) Condition: Improved - Instructions Diet, Activity, Other Instructions: Mrs Baker: you were admitted for anemia and have received 2 units of blood. We have also given you 3 doses of IV iron since you have been admitted. I have arranged for you to receive 2 more doses of IV iron outpatient here at [facility]. New medications IV Iron (Venofer) 2 more doses (you have received 3 in the hospital) Protonix 40mg twice per day, this will help your stomach prevent any bleeding Please call Dr Heredia (GI specialist) if you decide to move forward with another colonoscopy or EGD. I have also sent you a referral to the extrusion utility worker who saw you here in the hospital. I am available for questions. Please call me when you are able. [facility] [phone] Elsa Mak NP Disposition: HOME - Home Medications Comprehensive Discharge Medication List: Ambulatory Orders Levothyroxine [Synthroid -] 50 mcg PO DAILY 08/18/15 Carbidopa/Levodopa [Carbidopa-Levo 25-100 Tab] 2 each PO TID 10/31/15 Lactobacillus Acidophilus [Bacid -] 1 tab PO BID #100 tab 11/07/15 Megestrol Acetate Oral Susp [Megace Oral Suspension -] 400 mg PO DAILY #30 cup 08/05/17 Psyllium Husk [Metamucil] 425 gm PO DAILY #30 powder 08/05/17 Buspirone HCl [Buspar -] 10 mg PO DAILY PRN 05/09/18 Risperidone [Risperdal] 1 mg PO HS 05/09/18 Alprazolam [Xanax] 0.5 mg PO BID 05/23/18 Sertraline HCl [Zoloft] 100 mg PO DAILY 05/23/18 This patient is new to me today: No Emergency Visit: Yes ED Registration Date: 05/25/18 Care time: The patient presented to the Emergency Department on the above date and was hospitalized for further evaluation of their emergent condition. Critical Care patient: No - Discharge Referral Referred to [facility] No
[2018-05-26 15:27] VITALS: BP 121/75; PULSE 107; TEMP 98.7
== END 2018-05-26 16:54 | disposition home or self-care (01) | DRG 812 ==
LOC: JER 14:02 → UNDOADMOB 18:32 → JERBED 18:32 → INTOOBSV 18:32 → JERBED 19:42 → J5S 05-23 10:05 → OBSVTOIN 05-25 14:40
PROVIDERS: ADMIT Internal Medicine; ATTEND Nurse Practitioner Family
PROC: 30233N1 Transfusion of Nonautologous Red Blood Cells into Peripheral Vein, Percutaneous Approach (ICD-10-PCS; principal; 2018-05-22)
DX: D50.9 Iron deficiency anemia, unspecified (principal); E46 Unspecified protein-calorie malnutrition; Z68.1 Body mass index [BMI] 19.9 or less, adult; I50.32 Chronic diastolic (congestive) heart failure; E03.9 Hypothyroidism, unspecified; G20 Parkinson's disease; F02.80 Dementia in other diseases classified elsewhere, unspecified severity, without behavioral disturbance, psychotic disturbance, mood disturbance, and anxiety; R32 Unspecified urinary incontinence; Z87.891 Personal history of nicotine dependence; I11.0 Hypertensive heart disease with heart failure; D72.829 Elevated white blood cell count, unspecified; D47.3 Essential (hemorrhagic) thrombocythemia; I25.10 Atherosclerotic heart disease of native coronary artery without angina pectoris; K57.30 Diverticulosis of large intestine without perforation or abscess without bleeding; K21.9 Gastro-esophageal reflux disease without esophagitis; F32.9 Major depressive disorder, single episode, unspecified; K44.9 Diaphragmatic hernia without obstruction or gangrene; Z80.0 Family history of malignant neoplasm of digestive organs
CPT/HCPCS: 36415; 36430; 71045-TC-FY; 74177-TC; 80048; 80053; 81003; 81015; 82248; 82272; 82378; 82607; 82728; 82746; 83010; 83540; 83550; 83615; 83735; 84100; 84155; 84165; 84443; 85025; 85044; 85610; 86140; 86850; 86900; 86901; 86922; 87040; 93005; 93010; 97116-GP; 97162-GP; 99283-25; G0378; J1756; J2794; P9038; P9058

== ENCOUNTER 2018-05-27 11:26 | Day surgery (SDC) | payer OTHER, MEDICARE ==
[~2018-05-27 11:26] MED LIST: IRON SUCROSE INJECTION 200 MG in SODIUM CHLORIDE 100 ML IVPB ONE
[2018-05-27 14:58] VITALS: BP 133/66; PULSE 90; TEMP 99.2
== END 2018-05-27 14:30 | disposition home or self-care (01) ==
LOC: JINFUSION 11:26
PROVIDERS: ATTEND Internal Medicine
PROC: 3E033GC Introduction of Other Therapeutic Substance into Peripheral Vein, Percutaneous Approach (ICD-10-PCS; principal; 2018-05-27)
DX: D50.9 Iron deficiency anemia, unspecified (principal)
CPT/HCPCS: 96365; J1756

== ENCOUNTER 2018-05-28 10:29 | Day surgery (SDC) | payer OTHER, MEDICARE ==
[2018-05-28 12:48] VITALS: BP 122/63; PULSE 102; TEMP 98.1
== END 2018-05-28 12:49 | disposition home or self-care (01) ==
LOC: JINFUSION 10:29
PROVIDERS: ATTEND Internal Medicine
PROC: 3E033GC Introduction of Other Therapeutic Substance into Peripheral Vein, Percutaneous Approach (ICD-10-PCS; principal; 2018-05-28)
DX: D50.9 Iron deficiency anemia, unspecified (principal)
CPT/HCPCS: 96365; J1756

== ENCOUNTER 2018-08-15 10:55 | Emergency (ER) | payer OTHER, MEDICARE ==
[2018-08-15 11:41] VITALS: BP 117/61; PULSE 86; TEMP 98.1; BMI 16.9
--- NOTE | 2018-08-15 12:31 | PDOC ---
History of Present Illness - General Chief Complaint: Injury Stated Complaint: R SHOULDER PAIN Time Seen by Provider: 08/15/18 12:31 History Source: Patient, Family Exam Limitations: Clinical Condition, Physical Impairment - History of Present Illness Initial Comments: 08/15/18 12:54 The patient is a 87 year old female with a PMH of diastolic CHF, CAd, HTn, hypothyroidism, chronic intermittent diarrhea, dementia, Parkinson's, frequent falls, hospitalized 2 months ago in [facility] for anemia. She presented today s /p mechanical fall 2 days ago. The patient was sitting in her electric chair, when she tripped and fell on the right shoulder. Her fall was witnessed by her friend that is present at bedside. The patient is complaining of pain in her right shoulder, 10/10 in severity, unable to lift her arm. She denies hitting her head, dizziness, LOC, headache, weakness. She also reports dry cough. Denies fever, chills, chest pain, SOB, palpitations. She denies abdominal pain, diarrhea. PCP: none Timing/Duration: 24 hours (2 days) Past History - Past Medical History Allergies/Adverse Reactions: Allergies Allergy/AdvReac Type Severity Reaction Status Date / Time No Known Drug Allergies Allergy Verified 08/15/18 11:37 Home Medications: Ambulatory Orders Levothyroxine [Synthroid -] 50 mcg PO DAILY 08/18/15 Carbidopa/Levodopa [Carbidopa-Levo 25-100 Tab] 2 each PO TID 10/31/15 Lactobacillus Acidophilus [Bacid -] 1 tab PO BID #100 tab 11/07/15 Megestrol Acetate Oral Susp [Megace Oral Suspension -] 400 mg PO DAILY #30 cup 08/05/17 Psyllium Husk [Metamucil] 425 gm PO DAILY #30 powder 08/05/17 Buspirone HCl [Buspar -] 10 mg PO DAILY PRN 05/09/18 Risperidone [Risperdal -] 1 mg PO HS 05/09/18 Alprazolam [Xanax] 0.5 mg PO BID 05/23/18 Sertraline HCl [Zoloft] 100 mg PO DAILY 05/23/18 Iron Sucrose Injection [Venofer Injection -] 200 mg IVPB DAILY@0800 2 Days #2 vial MDD 1 05/26/18 Pantoprazole Sodium [Protonix -] 40 mg PO BID #120 tablet.ec 05/26/18 Anemia: No Asthma: No Cancer: Yes (Adenoma) Cardiac Disorders: Yes CVA: No COPD: No CHF: Yes Dementia: Yes Diabetes: No GI Disorders: Yes (hiatal hernia) Disorders: Yes (urinary incontinence) HTN: Yes Hypercholesterolemia: No Liver Disease: No Psychiatric Problems: Yes Seizures: Yes (MANIC DEPRESSION) Thyroid Disease: Yes - Surgical History Abdominal Surgery: Yes Appendectomy: No Cardiac Surgery: No Cholecystectomy: Yes Lung Surgery: No Neurologic Surgery: No Orthopedic Surgery: No - Immunization History Immunization Up to Date: Yes - Suicide/Smoking/Psychosocial Hx Smoking Status: No Smoking History: Never smoked Have you smoked in the past 12 months: No Number of Cigarettes Smoked Daily: 0 If you are a former smoker, when did you quit?: Over 40 years ago Cigars Per Day: 0 Hx Alcohol Use: No Drug/Substance Use Hx: No Substance Use Type: None Hx Substance Use Treatment: No Review of Systems - Review of Systems Able to Perform ROS?: Yes Constitutional: No: Symptoms Reported, Fever, Weakness HEENTM: No: Symptoms Reported Respiratory: Yes: Cough. No: Symptoms reported, Shortness of Breath, Wheezing ( dry) Cardiac (ROS): No: Symptoms Reported ABD/GI: No: Symptoms Reported : No: Symptoms Reported *Physical Exam - Vital Signs Last Vital Signs Temp Pulse Resp BP Pulse Ox 98.1 F 86 18 117/61 96 08/15/18 11:37 08/15/18 11:37 08/15/18 11:37 08/15/18 11:37 08/15/18 11:37 - Physical Exam General Appearance: Yes: Nourished, Appropriately Dressed. No: Apparent Distress HEENT: positive: EOMI, CHRISTI Respiratory/Chest: positive: Crackles, Rales, Rhonchi. negative: Respiratory Distress, Wheezing Cardiovascular: positive: Regular Rhythm, Regular Rate, S1, S2. negative: Edema , Murmur Gastrointestinal/Abdominal: positive: Normal Bowel Sounds, Soft Musculoskeletal: positive: Normal Inspection Extremity: positive: Other (limited ROM in right shoulder, tenderness to palpation over mid and lower part of scapula). 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 negative: Sensory Deficit Moderate Sedation - Procedure Monitoring Vital Signs: Procedure Monitoring Vital Signs Temperature 98.1 F 08/15/18 11:37 Pulse Rate 86 08/15/18 11:37 Respiratory Rate 18 08/15/18 11:37 Blood Pressure 117/61 08/15/18 11:37 O2 Sat by Pulse Oximetry (%) 96 08/15/18 11:37 ED Treatment Course - LABORATORY CBC & Chemistry Diagram: 08/15/18 12:56 08/15/18 12:56 Medical Decision Making - Medical Decision Making 08/15/18 13:08 The patient is a 87 year old female that presents s/p fall on her right shoulder. We will obtain, CBC, CMP, UA, u culture, CXR, right shoulder x ray, ekg, cardiac profile. 08/15/18 13:51 UA positive for infection, will give macrobid. Pending imaging 08/15/18 15:15 Imaging negative, no fracture, Ct negative. The patient will be discharged with prescription for macrobid for total of 5 days. *DC/Admit/Observation/Transfer Diagnosis at time of Disposition: UTI (urinary tract infection) - Discharge Dispostion Disposition: HOME Condition at time of disposition: Good Decision to Admit order: No - Referrals - Patient Instructions Printed Discharge Instructions: How to Prevent Falls, Urinary Tract Infection Additional Instructions: You were evaluated in Emergency Room for fall. We did x rays and CT head that was normal. We also found that you have urinary tract infection that needs to be treated with antibiotics. Please take it twice a day for total of 5 days. Take first dose this evening. If you have severe arm pain, headache, dizziness or worsening of any of your symptoms, come back to Emergency Room as soon as possible. - Post Discharge Activity
[2018-08-15 13:10] LABS: BASO % 0.8 % (0-2.0); EOS % 3.7 % (0-4.5); HEMATOCRIT 35.5 % (32.4-45.2); HEMOGLOBIN 12.3 GM/dL (10.7-15.3); LYMPH % 19.4 % (8-40); MCH 29.2 pg (25.7-33.7); MCHC 34.7 g/dl (32.0-36.0); MEAN CELL VOLUME 84.3 fl (80-96); MEAN PLT VOLUME 8.7 fl (7.5-11.1); MONO % 9.7 % (3.8-10.2); NEUT % 66.4 % (42.8-82.8); PLATELET COUNT 373 K/MM3 (134-434); RBC 4.21 M/mm3 (3.60-5.2); RDW 14.8 % (11.6-15.6); WHITE BLOOD COUNT 9.1 K/mm3 (4.0-10.0)
[2018-08-15 13:13] LABS: URINE APPEARANCE CLOUDY; URINE BILIRUBIN NEGATIVE (<2.0 mg/dL); URINE COLOR YELLOW; URINE GLUCOSE (UA) NEGATIVE (NEGATIVE); URINE KETONE NEGATIVE (NEGATIVE); URINE LEUK ESTERASE 3+ (NEGATIVE); URINE NITRITE POSITIVE (NEGATIVE); URINE PROTEIN NEGATIVE (NEGATIVE); URINE UROBILINOGEN NEGATIVE mg/dL (0.2-1.0)
[2018-08-15 13:19] LABS: EPI CELLS RARE /HPF (FEW); URINE BACTERIA RARE /hpf (NONE SEEN); URINE MUCUS RARE
[2018-08-15 13:40] LABS: ANION GAP 8 MMOL/L (8-16); BLOOD UREA NITROGEN 13 mg/dL (7-18); CALCIUM 8.3 mg/dL (8.5-10.1); CHLORIDE 105 mmol/L (98-107); CO2 28 mmol/L (21-32); CREATININE 0.8 mg/dL (0.55-1.3); GLUCOSE,RANDOM 99 mg/dL (74-106); POTASSIUM 3.6 mmol/L (3.5-5.1); SODIUM 141 mmol/L (136-145)
[2018-08-15] MEDS ORDERED: NITROFURANTOIN MACROCRYSTAL 50 MG CAPSULE (FP) PO SCH (14:00)
--- NOTE | 2018-08-15 14:13 | PDOC ---
Attending Attestation - Resident Resident Name: NeetuVaniNasrin Bright - ED Attending Attestation I have performed the following: I have examined & evaluated the patient, The case was reviewed & discussed with the resident, I agree w/resident's findings & plan, Exceptions are as noted - Medical Decision Making 08/15/18 15:35 Well-appearing no apparent distress posterior shoulder pain no acute fracture dislocation noted on x-ray head CT and laboratory analysis within normal limits urinalysis notable for UTI patient will be treated with Macrobid. She will be discharged to the care of her family. Findings, the need for follow-up and strict return instructions discussed with patient. <Jose Enrique Medellin - Last Filed: 08/15/18 15:59> - HPI HPI: 08/15/18 14:45 The patient is a 87 year old female with a significant past medical history of hypothyroidism, dementia, anemia and recurrent UTIs who presents to the emergency department for an injury s/p fall 2 days ago. The patient reports that she was sitting in an electric chair when she got up and tripped over a part of the chair that was sticking out. The patient reports that her fall was witnessed by other. She denies hitting her head or any loc. The patient states that she landed on her shoulder and now endorses some associated pain. She denies any other symptoms. She denies any fever, chills, nausea, vomiting, diarrhea, constipation or urinary symptoms. The patient denies any chest pain shortness of breath headache or dizziness. The patient denies any other complaints. Documentation prepared by Jama Jhaveri, acting as emergency medical technician/driver for Jose Enrique Medellin MD. - Physicial Exam PE: 08/15/18 16:00 Vitals: Triage vital signs reviewed General Appearance: No acute distress, well nourished, well developed Head: Atraumatic Neck: Supple; No nuchal rigidity Chest Wall: Nontender Cardiac: Regular rate and rhythm, no murmurs, no rubs, no gallops Lungs: Clear to auscultation bilateral, good air movement bilaterally Abdomen: Soft, nondistended, normal bowel sounds, nontender to palpation Genitourinary: Rectal: Exam deferred Extremities: (+)tenderness to palpation to posterior right shoulder. Full range of motion to all extremities, no cyanosis, clubbing, or edema Skin: Warm and dry, no rashes or lesions, no rash, no petechiae Neuro: AOX3; Cranial Nerves 2-12 grossly intact, Strength intact to all extremities, Sensation intact to all extremities, gait normal Psych: Normal mood, normal affect Documentation prepared by Jama Jhaveri, acting as emergency medical technician/driver for Jose Enrique Medellin MD. - Medical Decision Making 08/15/18 15:39 The patient has to come come back for a ED-follow up visit([facility]: Emergency Dept. ) on August 18 at 1:[address] Vazquez [facility]. Documentation prepared by Jama Jhaveri, acting as emergency medical technician/driver for Jose Enrique Medellin MD, /DO. <Jama Jhaveri - Last Filed: 08/15/18 16:00> Heart Score/ECG Review - ECG Impressions Comment:: 08/15/18 15:58 EKG performed at 1313 demonstrates normal sinus rhythm no ST elevations noted T- wave inversions left axis deviation Interpreted by me. <Jose Enrique Medellin - Last Filed: 08/15/18 15:59>
[2018-08-15] MEDS ORDERED: NITROFURANTOIN MACROCRYSTAL 50 MG CAPSULE (FP) ONE (14:24)
--- NOTE | 2018-08-17 12:29 | EKG ---
Test Reason : Blood Pressure : / mmHG Vent. Rate : 072 BPM Atrial Rate : 072 BPM P-R Int : 164 ms QRS Dur : 084 ms QT Int : 430 ms P-R-T Axes : 037 -24 017 degrees QTc Int : 470 ms NORMAL SINUS RHYTHM VOLTAGE CRITERIA FOR LEFT VENTRICULAR HYPERTROPHY ABNORMAL ECG WHEN COMPARED WITH ECG OF 22-MAY-2018 17:02, PREMATURE VENTRICULAR COMPLEXES ARE NO LONGER PRESENT Confirmed by JULIO GARCÍA MD ([id number]) on 08/17/2018 12:28:34 PM Referred By: Confirmed By:JULIO GARCÍA MD
== END 2018-08-15 15:30 | disposition home or self-care (01) ==
LOC: JER 10:55
DX: N39.0 Urinary tract infection, site not specified (principal); W18.39XA Other fall on same level, initial encounter; Y93.89 Activity, other specified; Y92.9 Unspecified place or not applicable; I50.9 Heart failure, unspecified; I10 Essential (primary) hypertension; F99 Mental disorder, not otherwise specified; F03.90 Unspecified dementia, unspecified severity, without behavioral disturbance, psychotic disturbance, mood disturbance, and anxiety; I51.9 Heart disease, unspecified
CPT/HCPCS: 36415; 70450-TC; 71045-TC-FY; 73030-TC-RT-FY; 80048; 81003; 81015; 84484; 85025; 87086; 87186; 93005; 93010; 99282-25

== ENCOUNTER 2018-08-31 14:51 | Inpatient (IN) | payer OTHER, MEDICARE ==
[2018-08-31] MEDS ORDERED: ALBUTEROL SO4 2.5/IPRATROPIUM 0.5 INH SOL 3 ML VIAL.NEB. NEB ONE ×5 (15:27→19:56)
[2018-08-31] MEDS ORDERED: methylPREDNISolone NA SUCC 125 MG/2 ML VIAL IVPB ONE (15:39)
[2018-08-31] MEDS ORDERED: methylPREDNISolone NA SUCC 125 MG/2 ML VIAL ONE ×2 (15:40→16:39)
[2018-08-31] MEDS ORDERED: ACETAMINOPHEN 1000 MG/100 ML VIAL (NON FORMULARY) IVPB ONE (15:40)
[2018-08-31] MEDS ORDERED: ACETAMINOPHEN INJECTION 100 ML IVPB ONE ×2 (15:40→16:39)
--- NOTE | 2018-08-31 15:46 | PDOC ---
History of Present Illness - General Chief Complaint: Shortness of Breath Stated Complaint: SENT BY PCP Time Seen by Provider: 08/31/18 15:09 History Source: Patient, Family Exam Limitations: Dementia - History of Present Illness Initial Comments: 08/31/18 15:41 Patient is an 88F with history of CAD, CHF, HTN, dementia, parkinson's here today complaining of 1 week of cough, shortness of breath and chest tightness. Patient was taken to urgent care where she was found to be febrile to 102.0F, tachypneic, and was diagnosed with CHF exacerbation. She was told to go to the ER. Patient is a poor historian, so history is limited. Denies chest pain, abdominal pain, dysuria. Denies history of blood clots. Patient's family is unsure if she got flu shot. No known sick contacts. Past History - Past Medical History Allergies/Adverse Reactions: Allergies Allergy/AdvReac Type Severity Reaction Status Date / Time No Known Drug Allergies Allergy Verified 08/15/18 11:37 Home Medications: Ambulatory Orders Levothyroxine [Synthroid -] 50 mcg PO DAILY 08/18/15 Buspirone HCl [Buspar -] 2.5 mg PO DAILY PRN 05/09/18 Risperidone [Risperdal -] 0.25 mg PO BID 05/09/18 Sertraline HCl [Zoloft] 100 mg PO DAILY 05/23/18 Docusate Sodium 100 mg PO PRN 08/31/18 Ferrous Sulfate 325 mg PO BID 08/31/18 Lactobacillus Acidophilus [Bacid -] 1 tab PO DAILY 08/31/18 Quetiapine Fumarate [Seroquel -] 25 mg PO HS 08/31/18 Sennosides [Senna] 17.2 mg PO PRN 08/31/18 Anemia: No Asthma: No Cancer: Yes (Adenoma) Cardiac Disorders: Yes CVA: No COPD: No CHF: Yes Dementia: Yes Diabetes: No GI Disorders: Yes (hiatal hernia) Disorders: Yes (urinary incontinence) HTN: Yes Hypercholesterolemia: No Liver Disease: No Psychiatric Problems: Yes Seizures: Yes (MANIC DEPRESSION) Thyroid Disease: Yes - Surgical History Abdominal Surgery: Yes Appendectomy: No Cardiac Surgery: No Cholecystectomy: Yes Lung Surgery: No Neurologic Surgery: No Orthopedic Surgery: No - Immunization History Immunization Up to Date: Yes - Suicide/Smoking/Psychosocial Hx Smoking Status: No Smoking History: Never smoked Have you smoked in the past 12 months: No Number of Cigarettes Smoked Daily: 0 If you are a former smoker, when did you quit?: Over 40 years ago Cigars Per Day: 0 Hx Alcohol Use: No Drug/Substance Use Hx: No Substance Use Type: None Hx Substance Use Treatment: No Review of Systems - Review of Systems Comments:: 08/31/18 15:44 GENERAL/CONSTITUTIONAL: No fever or chills. No weakness. HEAD, EYES, EARS, NOSE AND THROAT: No change in vision. No sore throat. CARDIOVASCULAR: No chest pain +shortness of breath RESPIRATORY: No cough, wheezing, or hemoptysis. GASTROINTESTINAL: No nausea, vomiting, diarrhea or constipation. GENITOURINARY: No dysuria, frequency, or change in urination. MUSCULOSKELETAL: +R arm pain. No neck or back pain. SKIN: No rash NEUROLOGIC: No headache, vertigo, loss of consciousness, or change in strength/ sensation. ENDOCRINE: No increased thirst. No abnormal weight change HEMATOLOGIC/LYMPHATIC: No anemia, easy bleeding, or history of blood clots. ALLERGIC/IMMUNOLOGIC: No hives or skin allergy. *Physical Exam - Vital Signs Last Vital Signs Temp Pulse Resp BP Pulse Ox 98.6 F 100 H 24 H 150/67 90 L 08/31/18 14:57 08/31/18 14:57 08/31/18 14:57 08/31/18 14:57 08/31/18 14:57 - Physical Exam Comments: 08/31/18 15:46 GENERAL: Awake, alert, and fully oriented, cachetic appearing HEAD: No signs of trauma, normocephalic, atraumatic EYES: PERRLA, EOMI, sclera anicteric, conjunctiva clear ENT: Auricles normal inspection, hearing grossly normal, nares patent, oropharynx clear without exudates. Moist mucosa NECK: Normal ROM, supple, no lymphadenopathy, JVD, or masses LUNGS: tachypneic, rales bilaterally HEART: Tachycardic, normal S1 and S2, no murmurs, rubs or gallops, peripheral pulses normal and equal bilaterally. ABDOMEN: Soft, nontender, normoactive bowel sounds. No guarding, no rebound. No masses EXTREMITIES: Normal inspection, Normal range of motion, no edema. No clubbing or cyanosis. NEUROLOGICAL: Cranial nerves II through XII grossly intact. Normal speech, no focal sensorimotor deficits SKIN: Warm, Dry, normal turgor, no rashes or lesions noted. Moderate Sedation - Procedure Monitoring Vital Signs: Procedure Monitoring Vital Signs Temperature 98.6 F 08/31/18 14:57 Pulse Rate 100 H 08/31/18 14:57 Respiratory Rate 24 H 08/31/18 14:57 Blood Pressure 150/67 08/31/18 14:57 O2 Sat by Pulse Oximetry (%) 90 L 08/31/18 14:57 ED Treatment Course - LABORATORY CBC & Chemistry Diagram: 08/31/18 15:37 08/31/18 15:37 - RADIOLOGY Radiology Studies Ordered: Category Date Time Status CHEST X-RAY PORTABLE* [RAD] Stat Radiology 08/31/18 15:25 Ordered Medical Decision Making - Medical Decision Making 08/31/18 15:48 Patient is 88F with history of CHF, CAD, HTN, dementia, ESBL UTIs, parkinsons here today with fever, cough, shortness of breath. Vitals afebrile here, tachycardic, tachypneic. Believe patient is likely febrile but did not get good oral temp read. Will treat with tylenol. B lines noted bilaterally on US, will hold fluid resuscitation at this time. Septic workup initiated. 08/31/18 15:51 Cultures reviewed, last esbl >1 year ago, last culture sensitive to ceftriaxone. Will cover with ceftriaxone and azithro. 08/31/18 16:00 EKG shows normal sinus rhythm with rate of 92. No st elevations/depressions. Normal axis. Normal intervals. No significant t wave abnormalities. Poor baseline 2/2 motion artifact. 08/31/18 17:52 CBC shows leukocytosis. CXR shows infiltrate. Patient reassessed, improved after duonebs, steroids and abx. Continuing to hold fluids given patient's CHF history and wet appearing x-rays. Patient stable. Accepted for admission to /s. *DC/Admit/Observation/Transfer Diagnosis at time of Disposition: Pneumonia - Discharge Dispostion Condition at time of disposition: Stable Decision to Admit order: Yes - Referrals - Patient Instructions - Post Discharge Activity
[2018-08-31] MEDS ORDERED: AZITHROMYCIN IVPB 500 MG in DEXTROSE 5%-WATER - 250 ML IVPB ONE (15:51)
[2018-08-31] MEDS ORDERED: CEFTRIAXONE 1,000 MG in DEXTROSE 5%-WATER - 50 ML IVPB ONE (15:51)
--- NOTE | 2018-08-31 15:55 | PDOC ---
Attending Attestation - Resident Resident Name: Frank Simons - ED Attending Attestation I have performed the following: I have examined & evaluated the patient, The case was reviewed & discussed with the resident, I agree w/resident's findings & plan, Exceptions are as noted - HPI HPI: 08/31/18 15:49 87-year-old female with past medical history of hypothyroidism, Parkinson's, dementia, anemia, history urinary tract infections, CHF, COPD, HTN presents with 1 week of cough. States with chest congestion. Noted fever today. Increasing SOB but denies chest pain. Saw urgent care today, but noted rales and ronchi and referred pt to the ED. - Physicial Exam PE: 08/31/18 15:50 GENERAL: Awake, alert, and fully oriented, in no acute distress HEAD: No signs of trauma EYES: EOMI, sclera anicteric, conjunctiva clear ENT: Auricles normal inspection, hearing grossly normal, nares patent, Moist mucosa NECK: Normal ROM, supple, LUNGS: Diffuse expiratory wheezing and ronchi and rales bilterally three quarters up. HEART: Regular rate and rhythm, normal S1 and S2, no murmurs, rubs or gallops ABDOMEN: Soft, nontender, No guarding, no rebound. No masses EXTREMITIES: Normal range of motion, no edema. No clubbing or cyanosis. No cords, erythema, or tenderness NEUROLOGICAL: Cranial nerves II through XII grossly intact. Normal speech SKIN: Warm, Dry, normal turgor, no rashes or lesions noted. - Medical Decision Making 08/31/18 15:55 Vital Signs Temp Pulse Resp BP Pulse Ox 98.6 F 100 H 24 H 150/67 90 L 08/31/18 14:57 08/31/18 14:57 08/31/18 14:57 08/31/18 14:57 08/31/18 14:57 Imp: PNA and/or COPD exacerbation and/or CHF exacerbation. Sepsis protocol. Empiric IV antibiotics (ceftriaxone and azithromycin) Treat as COPD exacerbation with duoneb and steroids. +/- lasix depending if CHF exacerbation. Admit. 08/31/18 17:25 CBC, BMP 08/31/18 15:37 08/31/18 15:37 CMP Sodium 138 mmol/L (136-145) 08/31/18 15:37 Potassium 4.0 mmol/L (3.5-5.1) 08/31/18 15:37 Chloride 103 mmol/L (98-107) 08/31/18 15:37 Carbon Dioxide 27 mmol/L (21-32) 08/31/18 15:37 Anion Gap 8 MMOL/L (8-16) 08/31/18 15:37 BUN 12 mg/dL (7-18) 08/31/18 15:37 Creatinine 0.7 mg/dL (0.55-1.3) 08/31/18 15:37 Creat Clearance w eGFR > 60 (>60) 08/31/18 15:37 Random Glucose 93 mg/dL (74-106) 08/31/18 15:37 Lactic Acid 1.0 mmol/L (0.4-2.0) 08/31/18 15:45 Calcium 9.0 mg/dL (8.5-10.1) 08/31/18 15:37 Total Bilirubin 0.2 mg/dL (0.2-1) 08/31/18 15:37 AST 16 U/L (15-37) 08/31/18 15:37 ALT 13 U/L (13-61) 08/31/18 15:37 Alkaline Phosphatase 128 U/L (45-117) H 08/31/18 15:37 Troponin I < 0.02 ng/ml (0.00-0.05) 08/31/18 15:37 Total Protein 6.6 g/dl (6.4-8.2) 08/31/18 15:37 Albumin 3.1 g/dl (3.4-5.0) L 08/31/18 15:37 Chest xray shows ?pulm congestion vs. bilateral pneumonia. Will admit the patient. Heart Score/ECG Review #1 ECG reviewed & interpreted by me at: 15:45 08/31/18 15:57 NSR 92 with occasional PACs, TWI III, no std/james, +LVH, QTC 457 msec, left axis deviation
[2018-08-31 16:20] LABS: VENOUS PC02 44.8 mmHg (38-52); VENOUS PH 7.4 (7.32-7.42)
[2018-08-31 16:25] LABS: BASO % 0.3 % (0-2.0); EOS % 0.8 % (0-4.5); HEMATOCRIT 38.5 % (32.4-45.2); HEMOGLOBIN 12.2 GM/dL (10.7-15.3); LYMPH % 13.1 % (8-40); MCHC 31.8 g/dl (32.0-36.0); MEAN CELL VOLUME 84.9 fl (80-96); MEAN PLT VOLUME 7.5 fl (7.5-11.1); MONO % 6.3 % (3.8-10.2); NEUT % 79.5 % (42.8-82.8); PLATELET COUNT 435 K/MM3 (134-434); RBC 4.53 M/mm3 (3.60-5.2); WHITE BLOOD COUNT 15.9 K/mm3 (4.0-10.0)
[2018-08-31] MEDS ORDERED: CEFTRIAXONE 1 GM/50 ML BAG ONE (16:39)
[2018-08-31 16:48] LABS: ALBUMIN 3.1 g/dl (3.4-5.0); ALK PHOS 128 U/L (45-117); ANION GAP 8 MMOL/L (8-16); BILIRUBIN,TOTAL 0.2 mg/dL (0.2-1); BLOOD UREA NITROGEN 12 mg/dL (7-18); CHLORIDE 103 mmol/L (98-107); CO2 27 mmol/L (21-32); CREATININE 0.7 mg/dL (0.55-1.3); GLUCOSE,RANDOM 93 mg/dL (74-106); SGOT/AST 16 U/L (15-37); SGPT/ALT 13 U/L (13-61); SODIUM 138 mmol/L (136-145); TOT PROT 6.6 g/dl (6.4-8.2)
[2018-08-31] MEDS ORDERED: AZITHROMYCIN IVPB 500 MG/250 ML BAG IVPB ONE (16:56)
[2018-08-31 17:04] LABS: INR 1.19 (0.83-1.09); PROTHROMBIN TIME (PATIENT) 14.1 SEC (9.7-13.0)
[2018-08-31 17:08] LABS: ACTIVATED PTT 31.8 SECONDS (25.2-36.5)
--- NOTE | 2018-08-31 18:52 | HP ---
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 She presents to the ED with complaints of with 1 week of coughing with worsening chest congestion. Patient lives at home with her sister who noticed that patient's cough and congestion worsened in the last 2 days. Sister took patient's temperature at home and noted it to be 102F. Patient's sister took her to urgent care today. Urgent care advised patient to be taken to the ED further evaluation. ER course was notable for: (1) chest xray, consistent with bilateral congestion, possible pneumonia (2) duonebs, steroids and abx. (3) Recent Travel: PAST MEDICAL HISTORY: hypothyroidism, Parkinson's, dementia, anemia, ESBL UTIs , diastolic CHF, COPD, HTN and anemia PAST SURGICAL HISTORY: Social History: Smoking: none Alcohol: none Drugs: none Family History: Allergies No Known Drug Allergies Allergy (Verified 08/15/18 11:37) HOME MEDICATIONS: Home Medications Medication Instructions Recorded Levothyroxine [Synthroid -] 50 mcg PO DAILY 08/18/15 Buspirone HCl [Buspar -] 2.5 mg PO DAILY PRN 05/09/18 Risperidone [Risperdal -] 0.25 mg PO BID 05/09/18 Sertraline HCl [Zoloft] 100 mg PO DAILY 05/23/18 Docusate Sodium 100 mg PO PRN 08/31/18 Ferrous Sulfate 325 mg PO BID 08/31/18 Lactobacillus Acidophilus [Bacid -] 1 tab PO DAILY 08/31/18 Quetiapine Fumarate [Seroquel -] 25 mg PO HS 08/31/18 Sennosides [Senna] 17.2 mg PO PRN 08/31/18 PHYSICAL EXAMINATION Vital Signs - 24 hr 08/31/18 08/31/18 14:57 17:38 Temperature 98.6 F Pulse Rate 100 H Respiratory 24 H Rate Blood Pressure 150/67 O2 Sat by Pulse 90 L 98 Oximetry (%) GENERAL: The patient is awake, alert, confused at baseline HEAD: Normal with no signs of trauma. EYES: PERRL, extraocular movements intact, sclera anicteric, conjunctiva clear. No ptosis. ENT: Ears normal, nares patent, oropharynx clear without exudates, moist mucous membranes. NECK: Trachea midline, full range of motion, supple. LUNGS: bilateral lungs with course rhonchi, mild wheezing on upper lobes HEART: Regular rate and rhythm ABDOMEN: Soft, nontender, nondistended, normoactive bowel sounds, no guarding EXTREMITIES: no edema NEUROLOGICAL:Normal speech, gait not observed. mostly wheelchair bound, intermittently can ambulate with walker with major assistance PSYCH: Normal mood, normal affect. SKIN: Warm, dry, normal turgor, no rashes or lesions noted Laboratory Results - last 24 hr 08/31/18 08/31/18 08/31/18 15:37 15:37 15:37 WBC 15.9 H RBC 4.53 Hgb 12.2 Hct 38.5 MCV 84.9 MCH 27.0 MCHC 31.8 L RDW 15.0 Plt Count 435 H MPV 7.5 D Absolute Neuts (auto) 12.7 H Neutrophils % 79.5 Lymphocytes % 13.1 D Monocytes % 6.3 Eosinophils % 0.8 Basophils % 0.3 Nucleated RBC % 0 PT with INR 14.10 H INR 1.19 H PTT (Actin FS) 31.8 VBG pH POC VBG pCO2 POC VBG pO2 Mixed VBG HCO3 Sodium 138 Potassium 4.0 Chloride 103 Carbon Dioxide 27 Anion Gap 8 BUN 12 Creatinine 0.7 Creat Clearance w eGFR > 60 Random Glucose 93 Lactic Acid Calcium 9.0 Total Bilirubin 0.2 AST 16 ALT 13 Alkaline Phosphatase 128 H Troponin I < 0.02 Total Protein 6.6 Albumin 3.1 L Influenza A (Rapid) Influenza B (Rapid) 08/31/18 08/31/18 08/31/18 15:37 15:45 15:45 WBC RBC Hgb Hct MCV MCH MCHC RDW Plt Count MPV Absolute Neuts (auto) Neutrophils % Lymphocytes % Monocytes % Eosinophils % Basophils % Nucleated RBC % PT with INR INR PTT (Actin FS) VBG pH 7.40 D POC VBG pCO2 44.8 POC VBG pO2 34.0 Mixed VBG HCO3 27.4 H Sodium Potassium Chloride Carbon Dioxide Anion Gap BUN Creatinine Creat Clearance w eGFR Random Glucose Lactic Acid 1.0 Calcium Total Bilirubin AST ALT Alkaline Phosphatase Troponin I Cancelled Total Protein Albumin Influenza A (Rapid) Influenza B (Rapid) 08/31/18 17:15 WBC RBC Hgb Hct MCV MCH MCHC RDW Plt Count MPV Absolute Neuts (auto) Neutrophils % Lymphocytes % Monocytes % Eosinophils % Basophils % Nucleated RBC % PT with INR INR PTT (Actin FS) VBG pH POC VBG pCO2 POC VBG pO2 Mixed VBG HCO3 Sodium Potassium Chloride Carbon Dioxide Anion Gap BUN Creatinine Creat Clearance w eGFR Random Glucose Lactic Acid Calcium Total Bilirubin AST ALT Alkaline Phosphatase Troponin I Total Protein Albumin Influenza A (Rapid) Negative Influenza B (Rapid) Negative ASSESSMENT/PLAN: Patient is an 88 year old female with a significant past medical history of hypothyroidism, Parkinson's, dementia, anemia, ESBL UTIs, diastolic CHF, COPD, HTN and anemia. She presents to the ED with complaints of with 1 week of coughing with worsening chest congestion. Patient lives at home with her sister who noticed that patient's cough and congestion worsened in the last 2 days. Sister took patient's temperature at home and noted it to be 102F. Patient's sister took her to urgent care today. Urgent care advised patient to be taken to the ED further evaluation. imaging: chest xray, with bilateral infiltrates EKG normal sinus rhythm with rate of 92. No st elevations/depressions. Pulmonary Sepsis in the setting of acute bilateral pneumonia Possible aspiration pneumonia Given Azithromycin and Ceftriaxone in the ED, along with duonebs, oxygen therapy and steriods Will order - supplemental oxygen - scheduled duonebs - continuation of antibiotics - swallow evaluation Blood cultures pending Card: Hypothyroidism: on synthroid therapy Diastolic CHF: Monitor intake and output and daily weights. Monitor for signs of fluid overload. Continuing to hold fluids given patient's CHF history. Hypertension: BP stable. monitor in the setting of sepsis. Neuro Parkinsons: on sinemet on last admission, has been weaned off by her primary. Dementia: per sister, at baseline - on buspar 10mg daily fen tolerating PO monitor electrolytes regular diet prophy SCDs bilaterally full code. Visit type - Emergency Visit Emergency Visit: Yes ED Registration Date: 08/31/18 Care time: The patient presented to the Emergency Department on the above date and was hospitalized for further evaluation of their emergent condition. - New Patient This patient is new to me today: Yes Date on this admission: 08/31/18 - Critical Care Critical Care patient: No
[2018-08-31] MEDS ORDERED: busPIRone HCL 5 MG TABLET PO PRN (18:54)
[2018-08-31] MEDS ORDERED: ACETAMINOPHEN 325 MG TABLET (FP) PO PRN (18:55)
[2018-08-31] MEDS: FERROUS SO4 325 MG TABLET (FP) PO SCH (23:20)
[2018-08-31] MEDS: risperiDONE 0.25 MG TABLET (FP) PO SCH (23:20)
[2018-08-31] MEDS: QUEtiapine FUMARATE 25 MG TABLET (FP) PO SCH (23:20)
[2018-09-01 06:40] LABS: HEMATOCRIT 33.6 % (32.4-45.2); HEMOGLOBIN 10.8 GM/dL (10.7-15.3); MCH 27.1 pg (25.7-33.7); MCHC 32.1 g/dl (32.0-36.0); MEAN CELL VOLUME 84.4 fl (80-96); MEAN PLT VOLUME 7.7 fl (7.5-11.1); PLATELET COUNT 386 K/MM3 (134-434); RBC 3.98 M/mm3 (3.60-5.2); RDW 15.1 % (11.6-15.6); WHITE BLOOD COUNT 12.7 K/mm3 (4.0-10.0)
[2018-09-01 07:09] LABS: ALBUMIN 2.5 g/dl (3.4-5.0); ALK PHOS 103 U/L (45-117); ANION GAP 8 MMOL/L (8-16); BILIRUBIN,TOTAL 0.2 mg/dL (0.2-1); BLOOD UREA NITROGEN 20 mg/dL (7-18); CALCIUM 8.7 mg/dL (8.5-10.1); CHLORIDE 106 mmol/L (98-107); CO2 26 mmol/L (21-32); CREATININE 0.8 mg/dL (0.55-1.3); GLUCOSE,RANDOM 114 mg/dL (74-106); MAGNESIUM 2.2 mg/dL (1.8-2.4); SGOT/AST 10 U/L (15-37); SGPT/ALT 10 U/L (13-61); SODIUM 139 mmol/L (136-145); TOT PROT 5.7 g/dl (6.4-8.2)
[2018-09-01] MEDS: LEVOTHYROXINE NA 50 MCG TABLET (FP) PO SCH (07:15)
[2018-09-01] MEDS: ALBUTEROL SO4 2.5/IPRATROPIUM 0.5 INH SOL 3 ML VIAL.NEB. NEB SCH ×4 (08:40→20:51)
[2018-09-01] MEDS ORDERED: AZITHROMYCIN IVPB 250 MG in DEXTROSE 5%-WATER - 250 ML IVPB SCH (10:00)
[2018-09-01] MEDS: SERTRALINE HCL 50 MG TABLET (FP) PO SCH (10:00)
[2018-09-01] MEDS ORDERED: CEFTRIAXONE 1 GM in DEXTROSE 5%-WATER - 50 ML IVPB SCH (10:00)
[2018-09-01] MEDS: DOCUSATE SODIUM 100 MG CAPSULE (FP) PO SCH (11:00)
[2018-09-01] MEDS: FERROUS SO4 325 MG TABLET (FP) PO SCH (11:00)
[2018-09-01] MEDS: risperiDONE 0.25 MG TABLET (FP) PO SCH (11:00)
--- NOTE | 2018-09-01 11:42 | PN ---
Physical Exam: SUBJECTIVE: Patient seen and examined at the bedside. Still waiting for bed assignment in the ED. comfortable, on 2 liters of nasal cannula. OBJECTIVE: Vital Signs Period Temp Pulse Resp BP Sys/Riggins Pulse Ox Last 24 Hr 98.6 F 95-100 20-24 148-150/67-75 90-98 GENERAL: The patient is awake, alert, confused at baseline. sister at bedside and provides all of the history. HEAD: Normal with no signs of trauma. EYES: PERRL, extraocular movements intact, sclera anicteric, conjunctiva clear. No ptosis. ENT: Ears normal, nares patent, oropharynx clear without exudates, moist mucous membranes. NECK: Trachea midline, full range of motion, supple. LUNGS: bilateral lungs with course rhonchi, mild wheezing on upper lobes HEART: Regular rate and rhythm ABDOMEN: Soft, nontender, nondistended, normoactive bowel sounds, no guarding EXTREMITIES: no edema NEUROLOGICAL:Normal speech, gait not observed. mostly wheelchair bound, intermittently can ambulate with walker with major assistance PSYCH: Normal mood, normal affect. SKIN: Warm, dry, normal turgor, no rashes or lesions noted Laboratory Results - last 24 hr 08/31/18 08/31/18 08/31/18 15:37 15:37 15:37 WBC 15.9 H RBC 4.53 Hgb 12.2 Hct 38.5 MCV 84.9 MCH 27.0 MCHC 31.8 L RDW 15.0 Plt Count 435 H MPV 7.5 D Absolute Neuts (auto) 12.7 H Neutrophils % 79.5 Lymphocytes % 13.1 D Monocytes % 6.3 Eosinophils % 0.8 Basophils % 0.3 Nucleated RBC % 0 PT with INR 14.10 H INR 1.19 H PTT (Actin FS) 31.8 VBG pH POC VBG pCO2 POC VBG pO2 Mixed VBG HCO3 Sodium 138 Potassium 4.0 Chloride 103 Carbon Dioxide 27 Anion Gap 8 BUN 12 Creatinine 0.7 Creat Clearance w eGFR > 60 Random Glucose 93 Lactic Acid Calcium 9.0 Magnesium Total Bilirubin 0.2 AST 16 ALT 13 Alkaline Phosphatase 128 H Troponin I < 0.02 Total Protein 6.6 Albumin 3.1 L Influenza A (Rapid) Influenza B (Rapid) 08/31/18 08/31/18 08/31/18 15:37 15:45 15:45 WBC RBC Hgb Hct MCV MCH MCHC RDW Plt Count MPV Absolute Neuts (auto) Neutrophils % Lymphocytes % Monocytes % Eosinophils % Basophils % Nucleated RBC % PT with INR INR PTT (Actin FS) VBG pH 7.40 D POC VBG pCO2 44.8 POC VBG pO2 34.0 Mixed VBG HCO3 27.4 H Sodium Potassium Chloride Carbon Dioxide Anion Gap BUN Creatinine Creat Clearance w eGFR Random Glucose Lactic Acid 1.0 Calcium Magnesium Total Bilirubin AST ALT Alkaline Phosphatase Troponin I Cancelled Total Protein Albumin Influenza A (Rapid) Influenza B (Rapid) 08/31/18 08/31/18 09/01/18 17:15 21:30 05:30 WBC 12.7 H RBC 3.98 Hgb 10.8 Hct 33.6 MCV 84.4 MCH 27.1 MCHC 32.1 RDW 15.1 Plt Count 386 MPV 7.7 Absolute Neuts (auto) Neutrophils % Lymphocytes % Monocytes % Eosinophils % Basophils % Nucleated RBC % PT with INR INR PTT (Actin FS) VBG pH POC VBG pCO2 POC VBG pO2 Mixed VBG HCO3 Sodium Potassium Chloride Carbon Dioxide Anion Gap BUN Creatinine Creat Clearance w eGFR Random Glucose Lactic Acid 2.0 Calcium Magnesium Total Bilirubin AST ALT Alkaline Phosphatase Troponin I Total Protein Albumin Influenza A (Rapid) Negative Influenza B (Rapid) Negative 09/01/18 05:30 WBC RBC Hgb Hct MCV MCH MCHC RDW Plt Count MPV Absolute Neuts (auto) Neutrophils % Lymphocytes % Monocytes % Eosinophils % Basophils % Nucleated RBC % PT with INR INR PTT (Actin FS) VBG pH POC VBG pCO2 POC VBG pO2 Mixed VBG HCO3 Sodium 139 Potassium 4.0 Chloride 106 Carbon Dioxide 26 Anion Gap 8 BUN 20 H Creatinine 0.8 Creat Clearance w eGFR > 60 Random Glucose 114 H Lactic Acid Calcium 8.7 Magnesium 2.2 Total Bilirubin 0.2 AST 10 L ALT 10 L Alkaline Phosphatase 103 Troponin I Total Protein 5.7 L Albumin 2.5 L Influenza A (Rapid) Influenza B (Rapid) Active Medications Generic Name Dose Route Start Last Admin Trade Name Freq PRN Reason Stop Dose Admin Acetaminophen 650 mg 08/31/18 18:55 Tylenol - PO Q6H PRN FEVER Albuterol/Ipratropium 1 amp 09/01/18 08:00 09/01/18 08:40 Duoneb - NEB 1 amp RQID MISTI Administration Buspirone HCl 2.5 mg 08/31/18 18:54 Buspar - PO DAILY PRN ANXIETY Docusate Sodium 100 mg 09/01/18 10:00 09/01/18 11:00 Colace - PO 100 mg DAILY MISTI Administration Ferrous Sulfate 325 mg 08/31/18 22:00 09/01/18 11:00 Feosol - PO 325 mg BID MISTI Administration Ceftriaxone Sodium 1 gm/ 50 mls @ 100 mls/hr 09/01/18 10:00 Dextrose IVPB DAILY MISTI Protocol Azithromycin 250 mg/ Dextrose 250 mls @ 250 mls/hr 09/01/18 10:00 09/01/18 11 :00 IVPB 250 mls/hr DAILY MISTI Administration Lactobacillus Acidophilus 1 tab 09/01/18 10:00 Bacid - PO DAILY MISTI Levothyroxine Sodium 50 mcg 09/01/18 07:00 09/01/18 07:15 Synthroid - PO 50 mcg DAILY@0700 MISTI Administration Quetiapine Fumarate 25 mg 08/31/18 22:00 08/31/18 23:20 Seroquel - PO 25 mg HS MISTI Administration Risperidone 0.25 mg 08/31/18 22:00 09/01/18 11:00 Risperdal - PO 0.25 mg BID MISIT Administration Sertraline HCl 100 mg 09/01/18 10:00 Zoloft - PO DAILY MISTI ASSESSMENT/PLAN: Patient is an 88 year old female with a significant past medical history of hypothyroidism, Parkinson's, dementia, anemia, ESBL UTIs, diastolic CHF, COPD, HTN and anemia. She presents to the ED with complaints of with 1 week of coughing with worsening chest congestion. Patient lives at home with her sister who noticed that patient's cough and congestion worsened in the last 2 days. Sister took patient's temperature at home and noted it to be 102F. Patient's sister took her to urgent care today. Urgent care advised patient to be taken to the ED further evaluation. imaging: chest xray, with bilateral infiltrates EKG normal sinus rhythm with rate of 92. No st elevations/depressions. Pulmonary Sepsis in the setting of acute bilateral pneumonia Possible aspiration pneumonia On supplement oxygen, scheduled duonebs. started on daily medrol by pulmonary. Started on Zosyn. Patient for a swallow evaluation, for now will continue dysphagia diet and honey thickened fluids Blood cultures pending Card: Hypothyroidism: on synthroid therapy Diastolic CHF: Monitor intake and output and daily weights. Monitor for signs of fluid overload. Continuing to hold fluids given patient's CHF history. Hypertension: BP stable. monitor in the setting of sepsis. Neuro Parkinsons: on sinemet on last admission, has been weaned off by her primary. Dementia: per sister, at baseline - on buspar 10mg daily fen tolerating PO monitor electrolytes regular diet prophy SCDs bilaterally full code. Visit type - Emergency Visit Emergency Visit: Yes ED Registration Date: 08/31/18 Care time: The patient presented to the Emergency Department on the above date and was hospitalized for further evaluation of their emergent condition. - New Patient This patient is new to me today: No - Critical Care Critical Care patient: No - Discharge Referral Referred to [facility] No
--- NOTE | 2018-09-01 12:19 | EKG ---
Test Reason : Blood Pressure : / mmHG Vent. Rate : 092 BPM Atrial Rate : 092 BPM P-R Int : 146 ms QRS Dur : 078 ms QT Int : 370 ms P-R-T Axes : 009 -28 010 degrees QTc Int : 457 ms NORMAL SINUS RHYTHM WITH SINUS ARRHYTHMIA POSSIBLE LEFT ATRIAL ENLARGEMENT LEFT VENTRICULAR HYPERTROPHY ABNORMAL ECG WHEN COMPARED WITH ECG OF 15-AUG-2018 13:13, NO SIGNIFICANT CHANGE WAS FOUND Confirmed by JAZMIN KISER MD ([id number]) on 09/01/2018 12:19:02 PM Referred By: Confirmed By:JAZMIN KISER MD
[2018-09-01] MEDS: LACTOBACILLUS ACIDOPHILUS 1 TABLET PO SCH (13:00)
--- NOTE | 2018-09-01 13:17 | CON.PULM ---
Consult Consult Specialty:: PULM/CCM Referred by:: Hospitalist Reason for Consultation:: SOB - History of Present Illness Chief Complaint: SOB History of Present Illness: 88 F, CAD, CHF, HTN, dementia, parkinson's, previous PNA (CT in 2016 revealed chronic interstitial changes). Admitted via the ER due to 1 week of cough, shortness of breath, and chest tightness. Apparently she was taken to an urgent care where she was found to be febrile to 102.0F. Patient is a poor historian and cannot give accurate information. Her aide that is with her Saturday/Saturday for 4 hours a day. CXR: increased bilateral interstitial markings. No apparent travel history or sick contacts. No history of hemoptysis. 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 Colon adenoma removed 2011.) Hepatobiliary: Yes: Cholelithiasis (s/p cholecystectomy) Renal/: Yes: UTI Infectious Disease: Yes: C-Diff Psych: Yes: Depression Endocrine: Yes: Hypothyroidism - Past Surgical History Past Surgical History: Yes: Cholecystectomy, Colonoscopy (07/18/12 = adenoma removed, diverticulosis seen), Upper Endoscopy (1) - Alcohol/Substance Use Hx Alcohol Use: No History of Substance Use: reports: None - Smoking History Smoking history: Never smoked Have you smoked in the past 12 months: No Aproximately how many cigarettes per day: 0 If you are a former smoker, when did you quit?: Over 40 years ago - Social History Usual Living Arrangement: With Significant Other (has no children) ADL: Family Assistance 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 History of Recent Travel: No Home Medications - Allergies Allergies/Adverse Reactions: Allergies Allergy/AdvReac Type Severity Reaction Status Date / Time No Known Drug Allergies Allergy Verified 08/31/18 19:07 - Home Medications Home Medications: Ambulatory Orders Levothyroxine [Synthroid -] 50 mcg PO DAILY 08/18/15 Buspirone HCl [Buspar -] 2.5 mg PO DAILY PRN 05/09/18 Risperidone [Risperdal -] 0.25 mg PO BID 05/09/18 Sertraline HCl [Zoloft] 100 mg PO DAILY 05/23/18 Docusate Sodium 100 mg PO PRN 08/31/18 Ferrous Sulfate 325 mg PO BID 08/31/18 Lactobacillus Acidophilus [Bacid -] 1 tab PO DAILY 08/31/18 Quetiapine Fumarate [Seroquel -] 25 mg PO HS 08/31/18 Sennosides [Senna] 17.2 mg PO PRN 08/31/18 Family Disease History - Family Disease History Family Disease History: CA: Father (mesothelioma and laryngeal tumors), Brother (colon cancer), Sister (PPM, lung cancer), Other: Mother ( CVA), Sister Review of Systems Unable to obtain ROS, reason: Not accurate: dementia Physical Exam Vital Sings: Vital Signs Temperature 98.4 F 09/01/18 11:00 Pulse Rate 82 09/01/18 11:00 Respiratory Rate 18 09/01/18 11:00 Blood Pressure 138/69 09/01/18 11:00 O2 Sat by Pulse Oximetry (%) 98 09/01/18 11:00 Constitutional: Yes: Anxious, Thin Eyes: Yes: Conjunctiva Clear, EOM Intact HENT: Yes: Atraumatic Cardiovascular: Yes: Tachycardia Respiratory: Yes: Cough, Diminished, On Nasal O2, Rhonchi, SOB, SOB on Exertion , Tachypnea. No: Accessory Muscle Use, Rales, Stridor, Wheezes ...Inspection: Yes: WNL ...Clubbing: No Gastrointestinal: Yes: Normal Bowel Sounds, Soft Renal/: Yes: WNL Musculoskeletal: Yes: WNL Extremities: Yes: WNL Edema: No Peripheral Pulses WNL: Yes Integumentary: Yes: WNL Neurological: Yes: Alert, Confusion Psychiatric: Yes: Alert Labs: CBC, BMP 09/01/18 05:30 09/01/18 05:30 Imaging - Results Chest X-ray: Report Reviewed, Image Reviewed Problem List - Problems (1) Pneumonia Code(s): J18.9 - PNEUMONIA, UNSPECIFIED ORGANISM (2) Anemia Code(s): D64.9 - ANEMIA, UNSPECIFIED Qualifiers: Other causes of anemia: other cause, not classified Qualified Code(s): D64.89 - Other specified anemias (3) CAD (coronary artery disease) Code(s): I25.10 - ATHSCL HEART DISEASE OF [place] CORONARY ARTERY W/O ANG PCTRS (4) CHF (congestive heart failure) Code(s): I50.9 - HEART FAILURE, UNSPECIFIED Qualifiers: Qualified Code(s): I50.9 - Heart failure, unspecified (5) Diverticula of colon Code(s): K57.30 - DVRTCLOS OF LG INT W/O PERFORATION OR ABSCESS W/O BLEEDING (6) Hiatal hernia Code(s): K44.9 - DIAPHRAGMATIC HERNIA WITHOUT OBSTRUCTION OR GANGRENE (7) Hypothyroidism Code(s): E03.9 - HYPOTHYROIDISM, UNSPECIFIED (8) Parkinson disease Code(s): G20 - PARKINSON'S DISEASE (9) Seizure disorder Code(s): G40.909 - EPILEPSY, UNSP, NOT INTRACTABLE, WITHOUT STATUS EPILEPTICUS Assessment/Plan Agree with empiric ABX Noted ID consult was called Daily Medrol x 5 days O2 as needed BD TX Aspiration precautions Check sputum if able Check urinary antigen Will follow Thank you. Dr Bryson
[2018-09-01] MEDS ORDERED: CEFTRIAXONE 1 GM/50 ML BAG ONE (13:18)
[2018-09-01] MEDS: methylPREDNISolone NA SUCC 40 MG/1 ML VIAL IVPUSH SCH (14:36)
[2018-09-01] MEDS ORDERED: methylPREDNISolone NA SUCC 40 MG/1 ML VIAL ONE (14:40)
--- NOTE | 2018-09-01 18:07 | PN ---
Physical Exam: SUBJECTIVE: Patient seen and examined OBJECTIVE: Vital Signs Period Temp Pulse Resp BP Sys/Riggins Pulse Ox Last 24 Hr 98.4 F 82-95 18-20 138-148/69-75 97-98 GENERAL: The patient is awake, alert, and fully oriented, in no acute distress. HEAD: Normal with no signs of trauma. EYES: PERRL, extraocular movements intact, sclera anicteric, conjunctiva clear. No ptosis. ENT: Ears normal, nares patent, oropharynx clear without exudates, moist mucous membranes. NECK: Trachea midline, full range of motion, supple. LUNGS: Breath sounds equal, clear to auscultation bilaterally, no wheezes, no crackles, no accessory muscle use. HEART: Regular rate and rhythm, S1, S2 without murmur, rub or gallop. ABDOMEN: Soft, nontender, nondistended, normoactive bowel sounds, no guarding, no rebound, no hepatosplenomegaly, no masses. EXTREMITIES: 2+ pulses, warm, well-perfused, no edema. NEUROLOGICAL: Cranial nerves II through XII grossly intact. Normal speech, gait not observed. PSYCH: Normal mood, normal affect. SKIN: Warm, dry, normal turgor, no rashes or lesions noted Laboratory Results - last 24 hr 08/31/18 09/01/18 09/01/18 21:30 05:30 05:30 WBC 12.7 H RBC 3.98 Hgb 10.8 Hct 33.6 MCV 84.4 MCH 27.1 MCHC 32.1 RDW 15.1 Plt Count 386 MPV 7.7 Sodium 139 Potassium 4.0 Chloride 106 Carbon Dioxide 26 Anion Gap 8 BUN 20 H Creatinine 0.8 Creat Clearance w eGFR > 60 Random Glucose 114 H Lactic Acid 2.0 Calcium 8.7 Magnesium 2.2 Total Bilirubin 0.2 AST 10 L ALT 10 L Alkaline Phosphatase 103 Total Protein 5.7 L Albumin 2.5 L Active Medications Generic Name Dose Route Start Last Admin Trade Name Freq PRN Reason Stop Dose Admin Acetaminophen 650 mg 08/31/18 18:55 Tylenol - PO Q6H PRN FEVER Albuterol/Ipratropium 1 amp 09/01/18 08:00 09/01/18 13:00 Duoneb - NEB 1 amp RQID MISTI Administration Buspirone HCl 2.5 mg 08/31/18 18:54 Buspar - PO DAILY PRN ANXIETY Docusate Sodium 100 mg 09/01/18 10:00 09/01/18 11:00 Colace - PO 100 mg DAILY MISTI Administration Ferrous Sulfate 325 mg 08/31/18 22:00 09/01/18 11:00 Feosol - PO 325 mg BID MISTI Administration Ceftriaxone Sodium 1 gm/ 50 mls @ 100 mls/hr 09/01/18 10:00 09/01/18 13:00 Dextrose IVPB 100 mls/hr DAILY MISTI Administration Protocol Azithromycin 250 mg/ Dextrose 250 mls @ 250 mls/hr 09/01/18 10:00 09/01/18 11 :00 IVPB 250 mls/hr DAILY MISTI Administration Lactobacillus Acidophilus 1 tab 09/01/18 10:00 09/01/18 13:00 Bacid - PO 1 tab DAILY MISTI Administration Levothyroxine Sodium 50 mcg 09/01/18 07:00 09/01/18 07:15 Synthroid - PO 50 mcg DAILY@0700 MISTI Administration Methylprednisolone Sodium Succinate 40 mg 09/01/18 13:45 09/01/18 14:36 Solu-Medrol - IVPUSH 09/05/18 10:01 40 mg DAILY MISTI Administration Quetiapine Fumarate 25 mg 08/31/18 22:00 08/31/18 23:20 Seroquel - PO 25 mg HS MISTI Administration Risperidone 0.25 mg 09/02/18 10:00 Risperdal - PO DAILY MISTI Sertraline HCl 100 mg 09/01/18 10:00 09/01/18 10:00 Zoloft - PO 100 mg DAILY MISTI Administration ASSESSMENT/PLAN:
--- NOTE | 2018-09-01 19:13 | CON.ID ---
Consult Consult Specialty:: infectious diseases Referred by:: Elsa Reason for Consultation:: pneumonia,weakness - History of Present Illness Chief Complaint: cough,fever,weakness History of Present Illness: 88 year old female with a significant past medical history of hypothyroidism, Parkinson's, dementia, anemia, ESBL UTIs, diastolic CHF, COPD, HTN and anemia came to the ED with complaints of with 1 week of coughing with worsening chest congestion. Patient lives at home with her sister who noticed that patient's cough and congestion worsened in the last 2 days. Sister took patient's temperature at home and noted it to be 102F. Patient's sister took her to urgent care today. Urgent care advised patient to be taken to the ED further evaluation. 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 Colon adenoma removed 2011.) Hepatobiliary: Yes: Cholelithiasis (s/p cholecystectomy) Renal/: Yes: UTI Infectious Disease: Yes: C-Diff Psych: Yes: Depression Endocrine: Yes: Hypothyroidism - Past Surgical History Past Surgical History: Yes: Cholecystectomy, Colonoscopy (07/18/12 = adenoma removed, diverticulosis seen), Upper Endoscopy (1) - Alcohol/Substance Use Hx Alcohol Use: No History of Substance Use: reports: None - Smoking History Smoking history: Never smoked Have you smoked in the past 12 months: No Aproximately how many cigarettes per day: 0 If you are a former smoker, when did you quit?: Over 40 years ago - Social History Usual Living Arrangement: With Significant Other (has no children) ADL: Family Assistance 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 History of Recent Travel: No Home Medications - Allergies Allergies/Adverse Reactions: Allergies Allergy/AdvReac Type Severity Reaction Status Date / Time No Known Drug Allergies Allergy Verified 08/31/18 19:07 - Home Medications Home Medications: Ambulatory Orders Levothyroxine [Synthroid -] 50 mcg PO DAILY 08/18/15 Buspirone HCl [Buspar -] 2.5 mg PO DAILY PRN 05/09/18 Risperidone [Risperdal -] 0.25 mg PO BID 05/09/18 Sertraline HCl [Zoloft] 100 mg PO DAILY 05/23/18 Docusate Sodium 100 mg PO PRN 08/31/18 Ferrous Sulfate 325 mg PO BID 08/31/18 Lactobacillus Acidophilus [Bacid -] 1 tab PO DAILY 08/31/18 Quetiapine Fumarate [Seroquel -] 25 mg PO HS 08/31/18 Sennosides [Senna] 17.2 mg PO PRN 08/31/18 Family Disease History - Family Disease History Family Disease History: CA: Father (mesothelioma and laryngeal tumors), Brother (colon cancer), Sister (PPM, lung cancer), Other: Mother ( CVA), Sister Review of Systems - Review of Systems Constitutional: reports: Fever Eyes: reports: No Symptoms HENT: reports: No Symptoms Neck: reports: No Symptoms Cardiovascular: reports: No Symptoms Respiratory: reports: Cough, SOB, Other Gastrointestinal: reports: No Symptoms Genitourinary: reports: No Symptoms Musculoskeletal: reports: No Symptoms Integumentary: reports: No Symptoms Neurological: reports: Weakness Endocrine: reports: No Symptoms Hematology/Lymphatic: reports: No Symptoms Psychiatric: reports: No Symptoms Physical Exam Vital Signs: Vital Signs Temperature 98.3 F 09/01/18 15:15 Pulse Rate 74 09/01/18 18:00 Respiratory Rate 22 H 09/01/18 18:00 Blood Pressure 134/78 09/01/18 18:00 O2 Sat by Pulse Oximetry (%) 97 09/01/18 18:00 Constitutional: Yes: No Distress, Calm, Thin Neck: Yes: Supple, Trachea Midline Cardiovascular: Yes: Regular Rate and Rhythm Respiratory: Yes: On Nasal O2, Poor Air Entry, Rhonchi Gastrointestinal: Yes: Normal Bowel Sounds, Soft Musculoskeletal: Yes: WNL Extremities: Yes: WNL Neurological: Yes: Alert, Oriented Psychiatric: Yes: Alert, Oriented Labs: CBC, BMP 09/01/18 05:30 09/01/18 05:30 Imaging - Results Chest X-ray: Report Reviewed, Image Reviewed Assessment/Plan Problem List - Problems (1) Pneumonia Code(s): J18.9 - PNEUMONIA, UNSPECIFIED ORGANISM (2) Anemia Code(s): D64.9 - ANEMIA, UNSPECIFIED Qualifiers: Other causes of anemia: other cause, not classified Qualified Code(s): D64.89 - Other specified anemias (3) CAD (coronary artery disease) Code(s): I25.10 - ATHSCL HEART DISEASE OF [place] CORONARY ARTERY W/O ANG PCTRS (4) CHF (congestive heart failure) Code(s): I50.9 - HEART FAILURE, UNSPECIFIED Qualifiers: Qualified Code(s): I50.9 - Heart failure, unspecified (5) Diverticula of colon Code(s): K57.30 - DVRTCLOS OF LG INT W/O PERFORATION OR ABSCESS W/O BLEEDING (6) Hiatal hernia Code(s): K44.9 - DIAPHRAGMATIC HERNIA WITHOUT OBSTRUCTION OR GANGRENE (7) Hypothyroidism Code(s): E03.9 - HYPOTHYROIDISM, UNSPECIFIED (8) Parkinson disease Code(s): G20 - PARKINSON'S DISEASE (9) Seizure disorder Code(s): G40.909 - EPILEPSY, UNSP, NOT INTRACTABLE, WITHOUT STATUS EPILEPTICUS plan will start patient on abx incentive malinda rest as per the team monitor wbc and fevers
[2018-09-01] MEDS ORDERED: ALBUTEROL SO4 2.5/IPRATROPIUM 0.5 INH SOL 3 ML VIAL.NEB. NEB ONE (20:39)
[2018-09-01] MEDS ORDERED: PIPERACILLIN/TAZOB 3.375 GM 3.375 GM/50 ML BAG IVPB ONE (20:39)
[2018-09-01] MEDS: PIPERACILLIN/TAZOB 3.375 GM 3.375 GM in DEXTROSE 5%-WATER - 50 ML IVPB SCH (20:51)
--- NOTE | 2018-09-02 00:13 | CONSULT ---
Admitting History and Physical - Admission Chief Complaint: Suspected aspiration pneumonia. Chest xray consistent with bilateral congestion. History of Present Illness: Hx of pneumonia in 2009. 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 Colon adenoma removed 2011.) Hepatobiliary: Yes: Cholelithiasis (s/p cholecystectomy) Renal/: Yes: UTI Infectious Disease: Yes: C-Diff Psych: Yes: Depression Endocrine: Yes: Hypothyroidism - Past Surgical History Past Surgical History: Yes: Cholecystectomy, Colonoscopy (07/18/12 = adenoma removed, diverticulosis seen), Upper Endoscopy (1) - Smoking History Smoking history: Never smoked Have you smoked in the past 12 months: No Aproximately how many cigarettes per day: 0 If you are a former smoker, when did you quit?: Over 40 years ago - Alcohol/Substance Use Hx Alcohol Use: No History of Substance Use: reports: None - Social History ADL: Family Assistance 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 History of Recent Travel: No History - Admission Reason For Visit: PNEUMONIA - General Mental Status: Awake and Alert, Able to Follow Commands Attention: Distractible (Easily distracted by activity in the area, but easily re-directed.) Ability to Follow Directions: Good Head/Neck Control: WFL - Hearing Hearing: Functional Hearing: Impaired (Required repetition on some occasions.) Speech Evaluation - Communication Primary Language: TURKISH Communication: Yes: Simple Responses Oral Expression Ability: Yes: No Impairment - Speech Production Apraxia: No Able to Make Needs Known: Yes: WNL Intelligibility: Yes: WNL - Speech Characteristics Voice Loudness: Moderately Soft/Quiet (Requires requests for repetition.) Voice Pitch: Yes: Mildly Low Voice Phonatory-based Quality: Yes: Normal Speech Pattern: Normal Nasal Resonance: Normal Articulation: Yes: Imprecise - Language/Auditory Comprehension Follows: Yes: 1 Stage Simple Commands (Requires repetition.) Observation: Able to respond to yes/no queries: Yes, Yes/No Confusion: Yes ( Occasional), Comprehends Conversational Speech: Yes, Benefits from Slow Speech: Yes, Benefits from Repetiton: Yes - Language/Verbal Expression Aphasia: Yes: Fluent Able to Respond to Simple Queries: Yes: Mildly Impaired Able to Communicate Wants and Needs: Yes: WNL Functional Communication Status: Yes: WNL Attention: Yes: Distractible - Memory/Perception penitentiary Memory: Yes: Mildly Impaired Short Term Memory: Yes: Mildly Impaired (Requuires verbal reminders.) - Swallow Evaluation/Bedside Assessment Current Nutritional Intake: Regular (Reminders to chew thoroughly and swallow prior to taking more bites/sips.) Oral Secretions: Yes: WFL Tracheostomy Present: No Patient on Ventilator: No Dentition: Yes: Adequate Facial Symmetry at Rest: Symmetrical Facial Symmetry on Retraction: Symmetrical Facial Movement: Controlled Sensation: Normal Jaw Position: Closed at Rest Pucker Lips: Normal Smile: Normal Lingual Movement: Normal Lingual Speed of Movement: Normal Lingual Movement Strgth Against Opposition: Normal Lingual Movement Characteristics: Normal Velopharyngeal Movement: Normal Laryngeal Elevation: WFL Laryngeal Movement: Able to Palpate Needs Assistance: Yes Rate of Intake: Impulsive (Tends to require verbal cues to pace herself and slow down.) Bolus Size: WFL Labial Seal: WFL (no spillage noted.) Chewing: WFL Oral Prep Time: WFL A-P Transit: Impaired (requires increased time) Pocketing: None Timing of Swallow: WFL Coughing/Throat Clear: No Change in Voice: No Other Findings/Remarks: Aspiration cannot be ruled out by bedside evaluation. Recommend Modified Barium Swallow. Recommendations - Speech Evaluation, Impression/Plan Impression: Aspiration risk cannot be ruled-out solely on bedside swallow assessment. Pt. showed no overt s/s of aspiration during PO trials and tolerated her meal well. Recommend objective swallow study, (MBS). Recommended Therapies: Swallowing (Reinforce small bites, chew and swallow thouroughly prior to placing more food in mouth. Take single sips of liquid.) Recommended Frequency for Therapy: Once a Week, Follow Up PRN - Disposition Discharge to: To be Determined - Dysphagia Impressions/Plan Swallowing Skills: WFL (For regular solids and thin liquids presented.) Dysphagia Treatment Plan: Elevate HOB during feed, OOB for meals Recommendations: Modified Barium Swallow - Recommendations Diet Consistency: Mechanical Soft Medication Administration: Whole with water Liquids: Thin Liquids
[2018-09-02] MEDS: QUEtiapine FUMARATE 25 MG TABLET (FP) PO SCH ×2 (00:19→22:34)
[2018-09-02] MEDS: FERROUS SO4 325 MG TABLET (FP) PO SCH ×3 (00:19→22:34)
[2018-09-02] MEDS ORDERED: PIPERACILLIN/TAZOBACTAM 3.375 GM VIAL IVPB ONE ×3 (01:00→18:17)
[2018-09-02] MEDS ORDERED: DEXTROSE 5%-WATER - 50 ML IVPB ONE ×3 (01:00→18:17)
[2018-09-02] MEDS: PIPERACILLIN/TAZOB 3.375 GM 3.375 GM in DEXTROSE 5%-WATER - 50 ML IVPB SCH ×3 (01:43→18:34)
[2018-09-02] MEDS: LEVOTHYROXINE NA 50 MCG TABLET (FP) PO SCH (06:31)
[2018-09-02] MEDS: ALBUTEROL SO4 2.5/IPRATROPIUM 0.5 INH SOL 3 ML VIAL.NEB. NEB SCH ×4 (07:25→20:25)
[2018-09-02 08:25] LABS: BASO % 0.2 % (0-2.0); EOS % 0.6 % (0-4.5); HEMATOCRIT 35.5 % (32.4-45.2); HEMOGLOBIN 11.3 GM/dL (10.7-15.3); LYMPH % 14.1 % (8-40); MCH 26.9 pg (25.7-33.7); MCHC 31.8 g/dl (32.0-36.0); MEAN CELL VOLUME 84.8 fl (80-96); MEAN PLT VOLUME 7.6 fl (7.5-11.1); MONO % 7.1 % (3.8-10.2); PLATELET COUNT 453 K/MM3 (134-434); RBC 4.19 M/mm3 (3.60-5.2); RDW 15.6 % (11.6-15.6); WHITE BLOOD COUNT 14.1 K/mm3 (4.0-10.0)
[2018-09-02 08:54] LABS: ALBUMIN 2.4 g/dl (3.4-5.0); ALK PHOS 97 U/L (45-117); ANION GAP 8 MMOL/L (8-16); BILIRUBIN,TOTAL 0.2 mg/dL (0.2-1); BLOOD UREA NITROGEN 15 mg/dL (7-18); CALCIUM 8.8 mg/dL (8.5-10.1); CHLORIDE 103 mmol/L (98-107); CO2 27 mmol/L (21-32); CREATININE 0.7 mg/dL (0.55-1.3); GLUCOSE,RANDOM 77 mg/dL (74-106); POTASSIUM 3.7 mmol/L (3.5-5.1); SGOT/AST 8 U/L (15-37); SGPT/ALT 10 U/L (13-61); SODIUM 138 mmol/L (136-145); TOT PROT 5.6 g/dl (6.4-8.2)
[2018-09-02] MEDS ORDERED: PT OWN MED DRAWER 7, Y5N ONE ×3 (09:59→19:07)
[2018-09-02] MEDS: LACTOBACILLUS ACIDOPHILUS 1 TABLET PO SCH (10:13)
[2018-09-02] MEDS: DOCUSATE SODIUM 100 MG CAPSULE (FP) PO SCH (10:13)
[2018-09-02] MEDS: risperiDONE 0.25 MG TABLET (FP) PO SCH (10:14)
[2018-09-02] MEDS: methylPREDNISolone NA SUCC 40 MG/1 ML VIAL IVPUSH SCH (10:14)
[2018-09-02] MEDS: SERTRALINE HCL 50 MG TABLET (FP) PO SCH (10:15)
--- NOTE | 2018-09-02 10:42 | PN ---
Physical Exam: SUBJECTIVE: Patient seen and examined at bedside. Complains of cough. OBJECTIVE: Vital Signs Period Temp Pulse Resp BP Sys/Riggins Pulse Ox Last 24 Hr 97.9 F-98.4 F 72-82 18-24 120-142/56-78 2-98 GENERAL: The patient is awake, alert, and fully oriented, in no acute distress. LUNGS: Diffuse rhonchi HEART: Regular rate and rhythm, S1, S2 ABDOMEN: Soft, nontender, nondistended EXTREMITIES: 2+ pulses, warm, well-perfused, no edema. NEUROLOGICAL: Cranial nerves II through XII grossly intact. Normal speech, gait not observed. Laboratory Results - last 24 hr 09/02/18 09/02/18 06:23 06:23 WBC 14.1 H RBC 4.19 Hgb 11.3 Hct 35.5 MCV 84.8 MCH 26.9 MCHC 31.8 L RDW 15.6 Plt Count 453 H MPV 7.6 Absolute Neuts (auto) 11.0 H Neutrophils % 78.0 Lymphocytes % 14.1 Monocytes % 7.1 Eosinophils % 0.6 Basophils % 0.2 Nucleated RBC % 0 Sodium 138 Potassium 3.7 Chloride 103 Carbon Dioxide 27 Anion Gap 8 BUN 15 Creatinine 0.7 Creat Clearance w eGFR > 60 Random Glucose 77 Calcium 8.8 Total Bilirubin 0.2 AST 8 L ALT 10 L Alkaline Phosphatase 97 Total Protein 5.6 L Albumin 2.4 L Active Medications Generic Name Dose Route Start Last Admin Trade Name Freq PRN Reason Stop Dose Admin Acetaminophen 650 mg 08/31/18 18:55 Tylenol - PO Q6H PRN FEVER Albuterol/Ipratropium 1 amp 09/01/18 08:00 09/01/18 20:51 Duoneb - NEB 1 amp RQID MISTI Administration Buspirone HCl 2.5 mg 08/31/18 18:54 Buspar - PO DAILY PRN ANXIETY Docusate Sodium 100 mg 09/01/18 10:00 09/02/18 10:13 Colace - PO 100 mg DAILY MISTI Administration Ferrous Sulfate 325 mg 08/31/18 22:00 09/02/18 10:14 Feosol - PO 325 mg BID MISTI Administration Piperacillin Sod/Tazobactam 50 mls @ 100 mls/hr 09/01/18 19:30 09/02/18 10:15 Sod 3.375 gm/ Dextrose IVPB 100 mls/hr Q8H-IV MISTI Administration Protocol Lactobacillus Acidophilus 1 tab 09/01/18 10:00 09/02/18 10:13 Bacid - PO 1 tab DAILY MISTI Administration Levothyroxine Sodium 50 mcg 09/01/18 07:00 09/02/18 06:31 Synthroid - PO 50 mcg DAILY@0700 MISTI Administration Methylprednisolone Sodium Succinate 40 mg 09/01/18 13:45 09/02/18 10:14 Solu-Medrol - IVPUSH 09/05/18 10:01 40 mg DAILY MISTI Administration Quetiapine Fumarate 25 mg 08/31/18 22:00 09/02/18 00:19 Seroquel - PO Not Given HS MISTI Risperidone 0.25 mg 09/02/18 10:00 09/02/18 10:14 Risperdal - PO 0.25 mg DAILY MISTI Administration Sertraline HCl 100 mg 09/01/18 10:00 09/02/18 10:15 Zoloft - PO 100 mg DAILY MISTI Administration ASSESSMENT/PLAN 88 year-old female with bilateral pneumonia. Bilateral pneumonia --afebrile, WBC 14k --08/31 1 out of 2 bottles (+) staph, may be contaminant; 09/02 blood cultures x 2 pending --continue Vanc and Zosyn --continue IV steroids --duonebs --possible aspiration event, swallow eval done Hypothyroidism --continue synthroid Diastolic heart failure --appears euvolemic --not on diuretics --strict I&Os --daily weights Hypertension --BP stable --not on antihypertensives Parkinsons --was on sinemet on last admission, has been weaned off by her primary. Dementia --per sister, at baseline --continue Buspar, seroquel, risperdal, sertraline FEN Fluids: PO intake adequate Electrolytes: replete as indicated Nutrition: mechanical soft, thin liquids DVT prophylaxis: subq heparin, oob, ambulation Physical therapy Dispo: continues to require inpatient care. Full code. Visit type - Emergency Visit Emergency Visit: Yes ED Registration Date: 08/31/18 Care time: The patient presented to the Emergency Department on the above date and was hospitalized for further evaluation of their emergent condition. - New Patient This patient is new to me today: Yes Date on this admission: 09/02/18 - Critical Care Critical Care patient: No
--- NOTE | 2018-09-02 11:03 | CON.PULM ---
Consult Consult Specialty:: PULMONARY Referred by:: NATHAN Reason for Consultation:: SOB/COUGH - History of Present Illness Chief Complaint: SOB/COUGH History of Present Illness: 87-year-old female with past medical history of hypothyroidism, Parkinson's, dementia, anemia, history urinary tract infections, CHF, COPD, HTN presents with 1 week of cough. States with chest congestion. Noted fever today. Increasing SOB but denies chest pain. Saw urgent care today, but noted rales and ronchi and referred pt to the ED. 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 Colon adenoma removed 2011.) Hepatobiliary: Yes: Cholelithiasis (s/p cholecystectomy) Renal/: Yes: UTI Infectious Disease: Yes: C-Diff Psych: Yes: Depression Endocrine: Yes: Hypothyroidism - Past Surgical History Past Surgical History: Yes: Cholecystectomy, Colonoscopy (07/18/12 = adenoma removed, diverticulosis seen), Upper Endoscopy (1) - Alcohol/Substance Use Hx Alcohol Use: No History of Substance Use: reports: None - Smoking History Smoking history: Never smoked Have you smoked in the past 12 months: No Aproximately how many cigarettes per day: 0 If you are a former smoker, when did you quit?: Over 40 years ago - Social History Usual Living Arrangement: With Significant Other (has no children) ADL: Family Assistance 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 History of Recent Travel: No Home Medications - Allergies Allergies/Adverse Reactions: Allergies Allergy/AdvReac Type Severity Reaction Status Date / Time No Known Drug Allergies Allergy Verified 08/31/18 19:07 - Home Medications Home Medications: Ambulatory Orders Levothyroxine [Synthroid -] 50 mcg PO DAILY 08/18/15 Buspirone HCl [Buspar -] 2.5 mg PO DAILY PRN 05/09/18 Risperidone [Risperdal -] 0.25 mg PO BID 05/09/18 Sertraline HCl [Zoloft] 100 mg PO DAILY 05/23/18 Docusate Sodium 100 mg PO PRN 08/31/18 Ferrous Sulfate 325 mg PO BID 08/31/18 Lactobacillus Acidophilus [Bacid -] 1 tab PO DAILY 08/31/18 Quetiapine Fumarate [Seroquel -] 25 mg PO HS 08/31/18 Sennosides [Senna] 17.2 mg PO PRN 08/31/18 Family Disease History - Family Disease History Family Disease History: CA: Father (mesothelioma and laryngeal tumors), Brother (colon cancer), Sister (PPM, lung cancer), Other: Mother ( CVA), Sister Review of Systems Unable to obtain ROS, reason: UNABLE TO OBTAIN Physical Exam Vital Sings: Vital Signs Temperature 98 F 09/02/18 05:00 Pulse Rate 80 09/02/18 05:00 Respiratory Rate 20 09/02/18 05:00 Blood Pressure 133/72 09/02/18 05:00 O2 Sat by Pulse Oximetry (%) 97 09/02/18 01:05 Constitutional: Yes: Pallor, Thin Eyes: Yes: EOM Intact HENT: Yes: Normocephalic Neck: Yes: Trachea Midline Cardiovascular: Yes: Regular Rate and Rhythm Respiratory: Yes: Rales, Rhonchi Gastrointestinal: Yes: Soft Edema: No Neurological: Yes: Pre-Existing Deficit Labs: CBC, BMP 09/02/18 06:23 09/02/18 06:23 Imaging - Results Chest X-ray: Report Reviewed, Image Reviewed EKG: Report Reviewed, Image Reviewed Problem List - Problems (1) Pneumonia Code(s): J18.9 - PNEUMONIA, UNSPECIFIED ORGANISM (2) Anemia Code(s): D64.9 - ANEMIA, UNSPECIFIED Qualifiers: Other causes of anemia: other cause, not classified Qualified Code(s): D64.89 - Other specified anemias (3) CAD (coronary artery disease) Code(s): I25.10 - ATHSCL HEART DISEASE OF [place] CORONARY ARTERY W/O ANG PCTRS (4) CHF (congestive heart failure) Code(s): I50.9 - HEART FAILURE, UNSPECIFIED Qualifiers: Qualified Code(s): I50.9 - Heart failure, unspecified (5) Parkinson disease Code(s): G20 - PARKINSON'S DISEASE (6) Seizure disorder Code(s): G40.909 - EPILEPSY, UNSP, NOT INTRACTABLE, WITHOUT STATUS EPILEPTICUS Assessment/Plan CONTINUE ANTIBIOTICS CHECK BLOOD CULTURE/PENDING ORGANISM BRONCHODILATORS/O2 SUPPLEMENTATION ASPIRATION PRECAUTIONS TAPER STEROIDS Kalpesh GUADARRAMA MD
--- NOTE | 2018-09-02 11:48 | PN ---
Progress Note, Physician History of Present Illness: patient feeling better sister in room blood cx positive coughing better breathing better - Current Medication List Current Medications: Active Medications Acetaminophen (Tylenol -) 650 mg PO Q6H PRN PRN Reason: FEVER Albuterol/Ipratropium (Duoneb -) 1 amp NEB RQID [facility] Last Admin: 09/02/18 07:25 Dose: 1 amp Buspirone HCl (Buspar -) 2.5 mg PO DAILY PRN PRN Reason: ANXIETY Docusate Sodium (Colace -) 100 mg PO DAILY [facility] Last Admin: 09/02/18 10:13 Dose: 100 mg Ferrous Sulfate (Feosol -) 325 mg PO BID [facility] Last Admin: 09/02/18 10:14 Dose: 325 mg Piperacillin Sod/Tazobactam (Sod 3.375 gm/ Dextrose) 50 mls @ 100 mls/hr IVPB Q8H-IV [facility]; Protocol Last Admin: 09/02/18 10:15 Dose: 100 mls/hr Lactobacillus Acidophilus (Bacid -) 1 tab PO DAILY [facility] Last Admin: 09/02/18 10:13 Dose: 1 tab Levothyroxine Sodium (Synthroid -) 50 mcg PO DAILY@0700 [facility] Last Admin: 09/02/18 06:31 Dose: 50 mcg Methylprednisolone Sodium Succinate (Solu-Medrol -) 40 mg IVPUSH DAILY [facility] Stop: 09/05/18 10:01 Last Admin: 09/02/18 10:14 Dose: 40 mg Quetiapine Fumarate (Seroquel -) 25 mg PO HS [facility] Last Admin: 09/02/18 00:19 Dose: Not Given Risperidone (Risperdal -) 0.25 mg PO DAILY [facility] Last Admin: 09/02/18 10:14 Dose: 0.25 mg Sertraline HCl (Zoloft -) 100 mg PO DAILY [facility] Last Admin: 09/02/18 10:15 Dose: 100 mg - Objective Vital Signs: Vital Signs Temperature 98 F 09/02/18 05:00 Pulse Rate 80 09/02/18 05:00 Respiratory Rate 20 09/02/18 05:00 Blood Pressure 133/72 09/02/18 05:00 O2 Sat by Pulse Oximetry (%) 97 09/02/18 01:05 Constitutional: Yes: No Distress, Calm Cardiovascular: Yes: Regular Rate and Rhythm Respiratory: Yes: Regular, On Nasal O2, Rhonchi Gastrointestinal: Yes: Normal Bowel Sounds, Soft Musculoskeletal: Yes: WNL Extremities: Yes: WNL Neurological: Yes: Alert, Oriented Psychiatric: Yes: Alert, Oriented Labs: CBC, BMP 09/02/18 06:23 09/02/18 06:23 INR, PTT INR 1.19 (0.83-1.09) H 08/31/18 15:37 Assessment/Plan Problem List - Problems (1) Pneumonia Code(s): J18.9 - PNEUMONIA, UNSPECIFIED ORGANISM (2) Anemia Code(s): D64.9 - ANEMIA, UNSPECIFIED Qualifiers: Other causes of anemia: other cause, not classified Qualified Code(s): D64.89 - Other specified anemias (3) CAD (coronary artery disease) Code(s): I25.10 - ATHSCL HEART DISEASE OF [place] CORONARY ARTERY W/O ANG PCTRS (4) CHF (congestive heart failure) Code(s): I50.9 - HEART FAILURE, UNSPECIFIED Qualifiers: Qualified Code(s): I50.9 - Heart failure, unspecified (5) Diverticula of colon Code(s): K57.30 - DVRTCLOS OF LG INT W/O PERFORATION OR ABSCESS W/O BLEEDING (6) Hiatal hernia Code(s): K44.9 - DIAPHRAGMATIC HERNIA WITHOUT OBSTRUCTION OR GANGRENE (7) Hypothyroidism Code(s): E03.9 - HYPOTHYROIDISM, UNSPECIFIED (8) Parkinson disease Code(s): G20 - PARKINSON'S DISEASE (9) Seizure disorder Code(s): G40.909 - EPILEPSY, UNSP, NOT INTRACTABLE, WITHOUT STATUS EPILEPTICUS one of the bottles showing positve blood cx,could be contaminant but do not know for sure plan will give one dose of vanco await for repeat blood cx if contaminant will stop vanco rest continue current mgmt incentive malinda
[2018-09-02] MEDS: VANCOMYCIN 1,250 MG in DEXTROSE 5%-WATER - 250 ML IVPB SCH (12:21)
[2018-09-02] MEDS: HEPARIN NA (PORCINE) 5,000 UNITS/ML 1ML VIAL SQ SCH (22:33)
[2018-09-03] MEDS ORDERED: DEXTROSE 5%-WATER - 50 ML IVPB ONE ×4 (02:06→23:58)
[2018-09-03] MEDS ORDERED: PIPERACILLIN/TAZOBACTAM 3.375 GM VIAL IVPB ONE ×4 (02:06→23:58)
[2018-09-03] MEDS: PIPERACILLIN/TAZOB 3.375 GM 3.375 GM in DEXTROSE 5%-WATER - 50 ML IVPB SCH ×3 (02:23→17:48)
[2018-09-03] MEDS: LEVOTHYROXINE NA 50 MCG TABLET (FP) PO SCH (06:25)
[2018-09-03] MEDS: ALBUTEROL SO4 2.5/IPRATROPIUM 0.5 INH SOL 3 ML VIAL.NEB. NEB SCH ×4 (07:50→20:31)
[2018-09-03] MEDS: FERROUS SO4 325 MG TABLET (FP) PO SCH ×2 (09:24→21:30)
[2018-09-03] MEDS: methylPREDNISolone NA SUCC 40 MG/1 ML VIAL IVPUSH SCH (09:24)
[2018-09-03] MEDS: LACTOBACILLUS ACIDOPHILUS 1 TABLET PO SCH (09:24)
[2018-09-03] MEDS: SERTRALINE HCL 50 MG TABLET (FP) PO SCH (09:24)
[2018-09-03] MEDS: DOCUSATE SODIUM 100 MG CAPSULE (FP) PO SCH (09:24)
[2018-09-03] MEDS: HEPARIN NA (PORCINE) 5,000 UNITS/ML 1ML VIAL SQ SCH ×2 (09:24→21:31)
[2018-09-03] MEDS: risperiDONE 0.25 MG TABLET (FP) PO SCH (09:25)
[2018-09-03 10:41] LABS: HEMATOCRIT 34.4 % (32.4-45.2); HEMOGLOBIN 11.8 GM/dL (10.7-15.3); MCH 28.8 pg (25.7-33.7); MCHC 34.1 g/dl (32.0-36.0); MEAN CELL VOLUME 84.4 fl (80-96); MEAN PLT VOLUME 7.1 fl (7.5-11.1); PLATELET COUNT 473 K/MM3 (134-434); RBC 4.08 M/mm3 (3.60-5.2); RDW 15.6 % (11.6-15.6); WHITE BLOOD COUNT 12.1 K/mm3 (4.0-10.0)
[2018-09-03] MEDS ORDERED: PT OWN MED DRAWER 7, Y5N ONE (10:55)
--- NOTE | 2018-09-03 11:02 | PN ---
Progress Note (short form) - Note Progress Note: PULMONARY Denies shortness of breath or chest pain. +nonproductive cough. No fevers. Vital Signs Period Temp Pulse Resp BP Sys/Riggins Pulse Ox Last 24 Hr 97.6 F-98.4 F 75-99 18-20 114-147/65-75 98 Gen: NAD at rest Heart: RRR Lung: scattered rhonchi Abd: soft, nontender Ext: no edema CBC, BMP 09/03/18 10:30 Active Medications Acetaminophen (Tylenol -) 650 mg PO Q6H PRN PRN Reason: FEVER Albuterol/Ipratropium (Duoneb -) 1 amp NEB RQID [facility] Last Admin: 09/02/18 20:25 Dose: 1 amp Buspirone HCl (Buspar -) 2.5 mg PO DAILY PRN PRN Reason: ANXIETY Docusate Sodium (Colace -) 100 mg PO DAILY [facility] Last Admin: 09/03/18 09:24 Dose: 100 mg Ferrous Sulfate (Feosol -) 325 mg PO BID [facility] Last Admin: 09/03/18 09:24 Dose: 325 mg Heparin Sodium (Porcine) (Heparin -) 5,000 unit SQ BID [facility] Last Admin: 09/03/18 09:24 Dose: 5,000 unit Piperacillin Sod/Tazobactam (Sod 3.375 gm/ Dextrose) 50 mls @ 100 mls/hr IVPB Q8H-IV [facility]; Protocol Last Admin: 09/03/18 09:24 Dose: 100 mls/hr Vancomycin HCl 1,250 mg/ (Dextrose) 250 mls @ 250 mls/2 hr IVPB Q24H [facility]; Protocol Last Admin: 09/02/18 12:21 Dose: 250 mls/2 hr Lactobacillus Acidophilus (Bacid -) 1 tab PO DAILY [facility] Last Admin: 09/03/18 09:24 Dose: 1 tab Levothyroxine Sodium (Synthroid -) 50 mcg PO DAILY@0700 [facility] Last Admin: 09/03/18 06:25 Dose: 50 mcg Methylprednisolone Sodium Succinate (Solu-Medrol -) 40 mg IVPUSH DAILY [facility] Stop: 09/05/18 10:01 Last Admin: 09/03/18 09:24 Dose: 40 mg Quetiapine Fumarate (Seroquel -) 25 mg PO HS [facility] Last Admin: 09/02/18 22:34 Dose: 25 mg Risperidone (Risperdal -) 0.25 mg PO DAILY [facility] Last Admin: 09/03/18 09:25 Dose: 0.25 mg Sertraline HCl (Zoloft -) 100 mg PO DAILY [facility] Last Admin: 09/03/18 09:24 Dose: 100 mg A/P Pneumonia Sepsis Acute COPD Exacerbation LV Diastolic Dysfunction HTN Hypothyroidism Parkinsons Dementia - continue antibiotics - can change steroids to PO prednisone and taper as outpt - inhaled bronchodilators - o2 to keep Spo2 >90% - DVT prophylaxis
[2018-09-03] MEDS: VANCOMYCIN 1,250 MG in DEXTROSE 5%-WATER - 250 ML IVPB SCH (11:12)
[2018-09-03 11:23] LABS: ERYTHROCYTE SEDIMENTATION RATE 89 mm/hr (0-30)
[2018-09-03 11:36] LABS: ALBUMIN 2.4 g/dl (3.4-5.0); ALK PHOS 90 U/L (45-117); ANION GAP 9 MMOL/L (8-16); BILIRUBIN,TOTAL 0.2 mg/dL (0.2-1); BLOOD UREA NITROGEN 14 mg/dL (7-18); CALCIUM 8.4 mg/dL (8.5-10.1); CHLORIDE 106 mmol/L (98-107); CO2 25 mmol/L (21-32); CREATININE 0.8 mg/dL (0.55-1.3); GLUCOSE,RANDOM 103 mg/dL (74-106); POTASSIUM 3.5 mmol/L (3.5-5.1); SGOT/AST 12 U/L (15-37); SGPT/ALT 14 U/L (13-61); SODIUM 141 mmol/L (136-145); TOT PROT 5.6 g/dl (6.4-8.2)
--- NOTE | 2018-09-03 12:18 | PN ---
Progress Note, Physician History of Present Illness: patient improving no complaints - Current Medication List Current Medications: Active Medications Acetaminophen (Tylenol -) 650 mg PO Q6H PRN PRN Reason: FEVER Albuterol/Ipratropium (Duoneb -) 1 amp NEB RQID COUNTS INCLUDE 234 BEDS AT THE [facility] Last Admin: 09/02/18 20:25 Dose: 1 amp Buspirone HCl (Buspar -) 2.5 mg PO DAILY PRN PRN Reason: ANXIETY Docusate Sodium (Colace -) 100 mg PO DAILY COUNTS INCLUDE 234 BEDS AT THE [facility] Last Admin: 09/03/18 09:24 Dose: 100 mg Ferrous Sulfate (Feosol -) 325 mg PO BID COUNTS INCLUDE 234 BEDS AT THE [facility] Last Admin: 09/03/18 09:24 Dose: 325 mg Heparin Sodium (Porcine) (Heparin -) 5,000 unit SQ BID COUNTS INCLUDE 234 BEDS AT THE [facility] Last Admin: 09/03/18 09:24 Dose: 5,000 unit Piperacillin Sod/Tazobactam (Sod 3.375 gm/ Dextrose) 50 mls @ 100 mls/hr IVPB Q8H-IV COUNTS INCLUDE 234 BEDS AT THE [facility]; Protocol Last Admin: 09/03/18 09:24 Dose: 100 mls/hr Vancomycin HCl 1,250 mg/ (Dextrose) 250 mls @ 250 mls/2 hr IVPB Q24H COUNTS INCLUDE 234 BEDS AT THE [facility]; Protocol Last Admin: 09/03/18 11:12 Dose: 250 mls/2 hr Lactobacillus Acidophilus (Bacid -) 1 tab PO DAILY COUNTS INCLUDE 234 BEDS AT THE [facility] Last Admin: 09/03/18 09:24 Dose: 1 tab Levothyroxine Sodium (Synthroid -) 50 mcg PO DAILY@0700 COUNTS INCLUDE 234 BEDS AT THE [facility] Last Admin: 09/03/18 06:25 Dose: 50 mcg Prednisone (Deltasone -) 40 mg PO DAILY COUNTS INCLUDE 234 BEDS AT THE [facility] Stop: 09/05/18 10:01 Quetiapine Fumarate (Seroquel -) 25 mg PO HS COUNTS INCLUDE 234 BEDS AT THE [facility] Last Admin: 09/02/18 22:34 Dose: 25 mg Risperidone (Risperdal -) 0.25 mg PO DAILY COUNTS INCLUDE 234 BEDS AT THE [facility] Last Admin: 09/03/18 09:25 Dose: 0.25 mg Sertraline HCl (Zoloft -) 100 mg PO DAILY COUNTS INCLUDE 234 BEDS AT THE [facility] Last Admin: 09/03/18 09:24 Dose: 100 mg - Objective Vital Signs: Vital Signs Temperature 97.9 F 09/03/18 10:00 Pulse Rate 74 09/03/18 10:00 Respiratory Rate 20 09/03/18 10:00 Blood Pressure 120/75 09/03/18 10:00 O2 Sat by Pulse Oximetry (%) 98 09/03/18 09:00 Constitutional: Yes: No Distress, Calm, Thin Eyes: Yes: Conjunctiva Clear Cardiovascular: Yes: Regular Rate and Rhythm Respiratory: Yes: Regular, On Nasal O2, Poor Air Entry Gastrointestinal: Yes: Normal Bowel Sounds, Soft Musculoskeletal: Yes: WNL Extremities: Yes: WNL Neurological: Yes: Alert, Oriented Psychiatric: Yes: Alert Labs: CBC, BMP 09/03/18 10:30 09/03/18 10:30 INR, PTT INR 1.19 (0.83-1.09) H 08/31/18 15:37 Assessment/Plan Problem List - Problems (1) Pneumonia Code(s): J18.9 - PNEUMONIA, UNSPECIFIED ORGANISM (2) Anemia Code(s): D64.9 - ANEMIA, UNSPECIFIED Qualifiers: Other causes of anemia: other cause, not classified Qualified Code(s): D64.89 - Other specified anemias (3) CAD (coronary artery disease) Code(s): I25.10 - ATHSCL HEART DISEASE OF [place] CORONARY ARTERY W/O ANG PCTRS (4) CHF (congestive heart failure) Code(s): I50.9 - HEART FAILURE, UNSPECIFIED Qualifiers: Qualified Code(s): I50.9 - Heart failure, unspecified (5) Diverticula of colon Code(s): K57.30 - DVRTCLOS OF LG INT W/O PERFORATION OR ABSCESS W/O BLEEDING (6) Hiatal hernia Code(s): K44.9 - DIAPHRAGMATIC HERNIA WITHOUT OBSTRUCTION OR GANGRENE (7) Hypothyroidism Code(s): E03.9 - HYPOTHYROIDISM, UNSPECIFIED (8) Parkinson disease Code(s): G20 - PARKINSON'S DISEASE (9) Seizure disorder Code(s): G40.909 - EPILEPSY, UNSP, NOT INTRACTABLE, WITHOUT STATUS EPILEPTICUS 10 gm positive bacteremia plan continue abx will deescalte abx tomorrow to oral incentive malinda rest as per the team
--- NOTE | 2018-09-03 12:33 | PN ---
Progress Note, WEB MARKETING STRATEGIST - Note Progress Note: Pt. seen for f/u visit. Pt's sister at bedside. Pt. A+Ox2. Difficulty responding to questions due to impaired cognition, processing difficulties and [place]. Pt. stated that she cannot find her hearing aids, but her sister insists that she knows where they are and refuses to use them, "She knows exactly where they are". Better able to respond when speaker talks close to her ear, short sentences and simple questions, giving Pt. time to process and respond. Pt. tolerating current texture of chopped. Case discussed with Nurse. HOB elevated with aspiration precautions in place. Pt. scheduled for Modified Barium Swallow.
[2018-09-03 15:05] VITALS: BMI 16.0
--- NOTE | 2018-09-03 16:42 | PN ---
Progress Note, HOSPITAL FELLOW - Note Progress Note: This 88 year old female with PMH of anemia, ASHD, Parkinson's Disease, CHF, hiatal hernia, hypothyroidism, colonic diverticula and seizure d/o is admitted with PNA. Patient was seen for MBS seated in upright position. Thin liquids, nectar thick liquids, purees and very soft solids contrasted with barium were presented and oropharyngeal swallowing function was analyzed in Lateral Projection. Results: For thin liquids: oral preparatory phase is functional via cup. Oral transport is mildly delayed. Posterior lingual elevation is reduced. Pre-swallow pooling is observed to the valleculae. Thin liquid contrast penetrates the laryngeal vestibule to the level of the true vocal folds. Penetrate is expelled during the swallow. Penetration of thin liquids does not occur when patient employs a chin tuck posture during the swallow. There is no evidence of aspiration for thin liquids. For nectar thick liquids, purees and very soft solids: Oral preparatory and oral phases are functional. Pre-swallow pooling is observed to the valleculae. Pharyngeal swallows are delayed 2.0-2.5 seconds. Minimal stasis in the valleculae is cleared via a second swallow. There is no evidence of aspiration. Rx: Mechanical soft diet with thin liquids as tolerated. Sit up at 90 degrees and midline for PO intake and for 30 minutes afterwards. Eat and drink slowly. Small mouthfuls. Chin tuck during swallow. Crush meds. Monitor nutritional and pulmonary status. HOSPITAL FELLOW discussed with Aneta Pond RN, on unit.
--- NOTE | 2018-09-03 20:06 | PN ---
Progress Note, Physician Chief Complaint: PNA History of Present Illness: Pt with slow steady progress. She is on 3L NC and appears comfortable. No fevers overnight Sister at bedside and when d/c planning discussed, both patient and sister would like to be sent home and not to rehab facility since pt has 24hr [employer]. Pt to have modified barium swallow today. - Current Medication List Current Medications: Active Medications Acetaminophen (Tylenol -) 650 mg PO Q6H PRN PRN Reason: FEVER Albuterol/Ipratropium (Duoneb -) 1 amp NEB RQID [facility] Last Admin: 09/03/18 17:25 Dose: 1 amp Buspirone HCl (Buspar -) 2.5 mg PO DAILY PRN PRN Reason: ANXIETY Docusate Sodium (Colace -) 100 mg PO DAILY [facility] Last Admin: 09/03/18 09:24 Dose: 100 mg Ferrous Sulfate (Feosol -) 325 mg PO BID [facility] Last Admin: 09/03/18 09:24 Dose: 325 mg Heparin Sodium (Porcine) (Heparin -) 5,000 unit SQ BID [facility] Last Admin: 09/03/18 09:24 Dose: 5,000 unit Piperacillin Sod/Tazobactam (Sod 3.375 gm/ Dextrose) 50 mls @ 100 mls/hr IVPB Q8H-IV [facility]; Protocol Last Admin: 09/03/18 17:48 Dose: 100 mls/hr Vancomycin HCl 1,250 mg/ (Dextrose) 250 mls @ 250 mls/2 hr IVPB Q24H [facility]; Protocol Last Admin: 09/03/18 11:12 Dose: 250 mls/2 hr Lactobacillus Acidophilus (Bacid -) 1 tab PO DAILY [facility] Last Admin: 09/03/18 09:24 Dose: 1 tab Levothyroxine Sodium (Synthroid -) 50 mcg PO DAILY@0700 [facility] Last Admin: 09/03/18 06:25 Dose: 50 mcg Prednisone (Deltasone -) 40 mg PO DAILY [facility] Stop: 09/05/18 10:01 Quetiapine Fumarate (Seroquel -) 25 mg PO HS [facility] Last Admin: 09/02/18 22:34 Dose: 25 mg Risperidone (Risperdal -) 0.25 mg PO DAILY [facility] Last Admin: 09/03/18 09:25 Dose: 0.25 mg Sertraline HCl (Zoloft -) 100 mg PO DAILY [facility] Last Admin: 09/03/18 09:24 Dose: 100 mg - Objective Vital Signs: Vital Signs Temperature 97.4 F L 09/03/18 16:10 Pulse Rate 86 09/03/18 16:10 Respiratory Rate 18 09/03/18 16:10 Blood Pressure 154/84 09/03/18 16:10 O2 Sat by Pulse Oximetry (%) 98 09/03/18 09:00 Constitutional: Yes: [place], Cachectic Eyes: Yes: Conjunctiva Clear HENT: Yes: Atraumatic, Normocephalic Neck: Yes: Supple Cardiovascular: Yes: Regular Rate and Rhythm Respiratory: Yes: Regular, CTA Bilaterally Gastrointestinal: Yes: Normal Bowel Sounds, Soft ...Rectal Exam: Yes: Deferred Musculoskeletal: Yes: Muscle Weakness Extremities: Yes: Cool Edema: No Peripheral Pulses WNL: Yes Peripheral Pulses: Left Radial: 2+, Right Radial: 2+ Integumentary: Yes: WNL Neurological: Yes: Alert, Oriented, Tremors, Unsteady Gait, Weakness, Other ( forgetful) ...Motor Strength: LLE (decreased in all 4 extremities), RLE Psychiatric: Yes: Alert, Oriented Labs: CBC, BMP 09/03/18 10:30 09/03/18 10:30 INR, PTT INR 1.19 (0.83-1.09) H 08/31/18 15:37 Problem List - Problems (1) Pneumonia Assessment/Plan: continue vanco, zosyn, as per ID will transition to oral Abx in the morning encourage PO intake trend temp and WBC curve 3L NC, titrate down as tolerated APAP PRN Temp > 101.0 albuterol nebs q6hrs IV steroids switched to oral today, Code(s): J18.9 - PNEUMONIA, UNSPECIFIED ORGANISM (2) CHF (congestive heart failure) Assessment/Plan: gentle hydration Code(s): I50.9 - HEART FAILURE, UNSPECIFIED (3) Anxiety and depression Assessment/Plan: Seroquel 25mg qhs, monitor QTc Resperdal 0.25mg daily Buspar 2.5mg as needed zoloft 100mg qam Code(s): F41.9 - ANXIETY DISORDER, UNSPECIFIED; F32.9 - MAJOR DEPRESSIVE DISORDER, SINGLE EPISODE, UNSPECIFIED (4) Anemia Assessment/Plan: iron tabs daily colace daily to reduce constipation risk Code(s): D64.9 - ANEMIA, UNSPECIFIED Qualifiers: Other causes of anemia: other cause, not classified Qualified Code(s): D64.89 - Other specified anemias (5) DVT prophylaxis Assessment/Plan: SC heparin Code(s): [id number] - (6) Hypothyroidism Assessment/Plan: synthroid 25mcg daily Code(s): E03.9 - HYPOTHYROIDISM, UNSPECIFIED (7) Dysphagia Assessment/Plan: Pt completed MBS - There is no evidence of aspiration Mechanical soft diet with thin liquids recommended Code(s): R13.10 - DYSPHAGIA, UNSPECIFIED Impression/Plan Impression/Plan: DISPO: D/c planning for home, later this week PPX incentive spirometry fall precautions OOB to chair as tolerated Ambulate as tolerated Visit type - Emergency Visit Emergency Visit: Yes ED Registration Date: 08/31/18 Care time: The patient presented to the Emergency Department on the above date and was hospitalized for further evaluation of their emergent condition. - New Patient This patient is new to me today: Yes Date on this admission: 09/03/18 - Critical Care Critical Care patient: No - Discharge Referral Referred to [facility] Med P.C.: No
[2018-09-03] MEDS: QUEtiapine FUMARATE 25 MG TABLET (FP) PO SCH (21:30)
[2018-09-04] MEDS: PIPERACILLIN/TAZOB 3.375 GM 3.375 GM in DEXTROSE 5%-WATER - 50 ML IVPB SCH ×3 (01:21→17:31)
[2018-09-04] MEDS: LEVOTHYROXINE NA 50 MCG TABLET (FP) PO SCH (06:07)
[2018-09-04] MEDS: ALBUTEROL SO4 2.5/IPRATROPIUM 0.5 INH SOL 3 ML VIAL.NEB. NEB SCH ×4 (07:11→20:06)
[2018-09-04] MEDS ORDERED: PIPERACILLIN/TAZOBACTAM 3.375 GM VIAL IVPB ONE ×2 (09:49→17:22)
[2018-09-04] MEDS ORDERED: PT OWN MED DRAWER 7, Y5N ONE (09:49)
[2018-09-04] MEDS ORDERED: DEXTROSE 5%-WATER - 50 ML IVPB ONE ×2 (09:49→17:22)
[2018-09-04] MEDS: DOCUSATE SODIUM 100 MG CAPSULE (FP) PO SCH (09:59)
[2018-09-04] MEDS: FERROUS SO4 325 MG TABLET (FP) PO SCH ×2 (09:59→22:46)
[2018-09-04] MEDS: LACTOBACILLUS ACIDOPHILUS 1 TABLET PO SCH (09:59)
[2018-09-04] MEDS: risperiDONE 0.25 MG TABLET (FP) PO SCH (09:59)
[2018-09-04] MEDS: HEPARIN NA (PORCINE) 5,000 UNITS/ML 1ML VIAL SQ SCH ×2 (09:59→22:47)
[2018-09-04] MEDS: SERTRALINE HCL 50 MG TABLET (FP) PO SCH (09:59)
[2018-09-04] MEDS: predniSONE 20 MG TABLET (UD) PO SCH (09:59)
--- NOTE | 2018-09-04 10:17 | PN ---
Progress Note (short form) - Note Progress Note: PULMONARY Feels well. Denies shortness of breath or chest pain. +nonproductive cough. No fevers. Vital Signs Period Temp Pulse Resp BP Sys/Riggins Pulse Ox Last 24 Hr 97.4 F-98.5 F 76-91 18-20 111-154/59-84 98 Gen: NAD at rest Heart: RRR Lung: scattered rhonchi Abd: soft, nontender Ext: no edema CBC, BMP 09/03/18 10:30 09/03/18 10:30 Active Medications Acetaminophen (Tylenol -) 650 mg PO Q6H PRN PRN Reason: FEVER Albuterol/Ipratropium (Duoneb -) 1 amp NEB RQID [facility] Last Admin: 09/04/18 07:11 Dose: 1 amp Buspirone HCl (Buspar -) 2.5 mg PO DAILY PRN PRN Reason: ANXIETY Docusate Sodium (Colace -) 100 mg PO DAILY [facility] Last Admin: 09/04/18 09:59 Dose: 100 mg Ferrous Sulfate (Feosol -) 325 mg PO BID [facility] Last Admin: 09/04/18 09:59 Dose: 325 mg Heparin Sodium (Porcine) (Heparin -) 5,000 unit SQ BID [facility] Last Admin: 09/04/18 09:59 Dose: 5,000 unit Piperacillin Sod/Tazobactam (Sod 3.375 gm/ Dextrose) 50 mls @ 100 mls/hr IVPB Q8H-IV [facility]; Protocol Last Admin: 09/04/18 09:59 Dose: 100 mls/hr Vancomycin HCl 1,250 mg/ (Dextrose) 250 mls @ 250 mls/2 hr IVPB Q24H [facility]; Protocol Last Admin: 09/03/18 11:12 Dose: 250 mls/2 hr Lactobacillus Acidophilus (Bacid -) 1 tab PO DAILY [facility] Last Admin: 09/04/18 09:59 Dose: 1 tab Levothyroxine Sodium (Synthroid -) 50 mcg PO DAILY@0700 [facility] Last Admin: 09/04/18 06:07 Dose: 50 mcg Prednisone (Deltasone -) 40 mg PO DAILY [facility] Stop: 09/05/18 10:01 Last Admin: 09/04/18 09:59 Dose: 40 mg Quetiapine Fumarate (Seroquel -) 25 mg PO HS [facility] Last Admin: 09/03/18 21:30 Dose: 25 mg Risperidone (Risperdal -) 0.25 mg PO DAILY [facility] Last Admin: 09/04/18 09:59 Dose: 0.25 mg Sertraline HCl (Zoloft -) 100 mg PO DAILY [facility] Last Admin: 09/04/18 09:59 Dose: 100 mg A/P Pneumonia Sepsis Acute COPD Exacerbation LV Diastolic Dysfunction HTN Hypothyroidism Parkinsons Dementia - continue antibiotics - prednisone taper - inhaled bronchodilators - o2 to keep Spo2 >90% - aspiration precautions - DVT prophylaxis
[2018-09-04] MEDS: VANCOMYCIN 1,250 MG in DEXTROSE 5%-WATER - 250 ML IVPB SCH (11:36)
--- NOTE | 2018-09-04 12:33 | PN ---
Physical Exam: SUBJECTIVE: Patient seen and examined. No new c/o. Sitting up eating breakfast OBJECTIVE: Vital Signs Period Temp Pulse Resp BP Sys/Riggins Pulse Ox Last 24 Hr 97.4 F-98.5 F 76-96 18-24 111-154/59-84 98-98 Vital Signs Temperature 97.9 F 09/04/18 10:00 Pulse Rate 96 H 09/04/18 10:00 Respiratory Rate 24 H 09/04/18 10:00 Blood Pressure 126/68 09/04/18 10:00 O2 Sat by Pulse Oximetry (%) 98 09/04/18 09:00 GENERAL: The patient is awake, responses not appropriate to questions ENT: moist mucous membranes. LUNGS: B/l basal crackles HEART: Regular rate and rhythm, S1, S2 ABDOMEN: Soft, nontender, nondistended, normoactive bowel sounds EXTREMITIES: 2+ pulses, warm, well-perfused, no edema. NEUROLOGICAL: Cranial nerves II through XII grossly intact. Normal speech, gait not observed. CBC, BMP 09/03/18 10:30 09/03/18 10:30 Active Medications Generic Name Dose Route Start Last Admin Trade Name Freq PRN Reason Stop Dose Admin Acetaminophen 650 mg 08/31/18 18:55 Tylenol - PO Q6H PRN FEVER Albuterol/Ipratropium 1 amp 09/01/18 08:00 09/04/18 07:11 Duoneb - NEB 1 amp RQID [facility] Administration Buspirone HCl 2.5 mg 08/31/18 18:54 Buspar - PO DAILY PRN ANXIETY Docusate Sodium 100 mg 09/01/18 10:00 09/04/18 09:59 Colace - PO 100 mg DAILY [facility] Administration Ferrous Sulfate 325 mg 08/31/18 22:00 09/04/18 09:59 Feosol - PO 325 mg BID [facility] Administration Heparin Sodium (Porcine) 5,000 unit 09/02/18 22:00 09/04/18 09:59 Heparin - SQ 5,000 unit BID [facility] Administration Piperacillin Sod/Tazobactam 50 mls @ 100 mls/hr 09/01/18 19:30 09/04/18 09:59 Sod 3.375 gm/ Dextrose IVPB 100 mls/hr Q8H-IV [facility] Administration Protocol Vancomycin HCl 1,250 mg/ 250 mls @ 250 mls/2 hr 09/02/18 12:00 09/04/18 11:36 Dextrose IVPB 250 mls/2 hr Q24H [facility] Administration Protocol Lactobacillus Acidophilus 1 tab 09/01/18 10:00 09/04/18 09:59 Bacid - PO 1 tab DAILY [facility] Administration Levothyroxine Sodium 50 mcg 09/01/18 07:00 09/04/18 06:07 Synthroid - PO 50 mcg DAILY@0700 [facility] Administration Prednisone 40 mg 09/04/18 10:00 09/04/18 09:59 Deltasone - PO 09/05/18 10:01 40 mg DAILY [facility] Administration Quetiapine Fumarate 25 mg 08/31/18 22:00 09/03/18 21:30 Seroquel - PO 25 mg HS [facility] Administration Risperidone 0.25 mg 09/02/18 10:00 09/04/18 09:59 Risperdal - PO 0.25 mg DAILY [facility] Administration Sertraline HCl 100 mg 09/01/18 10:00 09/04/18 09:59 Zoloft - PO 100 mg DAILY [facility] Administration ASSESSMENT/PLAN: Pt is an 88 yo F with a PMHx of hypothyroidism, Parkinson's, dementia, anemia, ESBL UTIs, diastolic CHF, COPD, HTN and anemia who presented from home with 1 week hx of cough and worsening chest congestion. #CAP Pneumonia with background COPD continue vanco, zosyn,per ID encourage PO intake Supplemental oxygen as needed Cont duonebs Cont prednisone, #CHF (congestive heart failure) Appears Euvolemic- monitor #Anxiety and depression Cont Seroquel 25mg Cont Resperdal 0.25mg daily Buspar 2.5mg as needed zoloft 100mg qam fall precautions OOB to chair with assistance as tolerated Ambulate with assistance as tolerated # Anemia Cont iron tabs daily colace daily to reduce constipation risk # Hypothyroidism synthroid 25mcg daily #Dysphagia s/p -ve MBS Dysphagia soft diet with thin liquids recommended #PPx SC heparin incentive spirometry DISPO: D/c planning for home, later this week Visit type - Emergency Visit Emergency Visit: Yes ED Registration Date: 08/31/18 Care time: The patient presented to the Emergency Department on the above date and was hospitalized for further evaluation of their emergent condition. - New Patient This patient is new to me today: Yes Date on this admission: 09/04/18 - Critical Care Critical Care patient: No - Discharge Referral Referred to [facility] Med P.C.: No
--- NOTE | 2018-09-04 14:33 | PN ---
Progress Note, Physician History of Present Illness: patient has been coughing a lot sputum production weak sister in the room - Current Medication List Current Medications: Active Medications Acetaminophen (Tylenol -) 650 mg PO Q6H PRN PRN Reason: FEVER Albuterol/Ipratropium (Duoneb -) 1 amp NEB RQID [facility] Last Admin: 09/04/18 07:11 Dose: 1 amp Buspirone HCl (Buspar -) 2.5 mg PO DAILY PRN PRN Reason: ANXIETY Docusate Sodium (Colace -) 100 mg PO DAILY [facility] Last Admin: 09/04/18 09:59 Dose: 100 mg Ferrous Sulfate (Feosol -) 325 mg PO BID [facility] Last Admin: 09/04/18 09:59 Dose: 325 mg Heparin Sodium (Porcine) (Heparin -) 5,000 unit SQ BID [facility] Last Admin: 09/04/18 09:59 Dose: 5,000 unit Piperacillin Sod/Tazobactam (Sod 3.375 gm/ Dextrose) 50 mls @ 100 mls/hr IVPB Q8H-IV [facility]; Protocol Last Admin: 09/04/18 09:59 Dose: 100 mls/hr Vancomycin HCl 1,250 mg/ (Dextrose) 250 mls @ 250 mls/2 hr IVPB Q24H [facility]; Protocol Last Admin: 09/04/18 11:36 Dose: 250 mls/2 hr Lactobacillus Acidophilus (Bacid -) 1 tab PO DAILY [facility] Last Admin: 09/04/18 09:59 Dose: 1 tab Levothyroxine Sodium (Synthroid -) 50 mcg PO DAILY@0700 [facility] Last Admin: 09/04/18 06:07 Dose: 50 mcg Prednisone (Deltasone -) 40 mg PO DAILY [facility] Stop: 09/05/18 10:01 Last Admin: 09/04/18 09:59 Dose: 40 mg Quetiapine Fumarate (Seroquel -) 25 mg PO HS [facility] Last Admin: 09/03/18 21:30 Dose: 25 mg Risperidone (Risperdal -) 0.25 mg PO DAILY [facility] Last Admin: 09/04/18 09:59 Dose: 0.25 mg Sertraline HCl (Zoloft -) 100 mg PO DAILY [facility] Last Admin: 09/04/18 09:59 Dose: 100 mg - Objective Vital Signs: Vital Signs Temperature 98.1 F 09/04/18 14:00 Pulse Rate 88 09/04/18 14:00 Respiratory Rate 22 H 09/04/18 14:00 Blood Pressure 140/74 09/04/18 14:00 O2 Sat by Pulse Oximetry (%) 98 09/04/18 09:00 Constitutional: Yes: Calm, Mild Distress, Thin Cardiovascular: Yes: S1, S2 Respiratory: Yes: On Nasal O2, Poor Air Entry, Rhonchi Gastrointestinal: Yes: Normal Bowel Sounds, Soft Musculoskeletal: Yes: WNL Extremities: Yes: WNL Neurological: Yes: Alert, Oriented Psychiatric: Yes: Alert, Oriented Labs: CBC, BMP 09/03/18 10:30 09/03/18 10:30 INR, PTT INR 1.19 (0.83-1.09) H 08/31/18 15:37 Assessment/Plan Problem List - Problems (1) Pneumonia Code(s): J18.9 - PNEUMONIA, UNSPECIFIED ORGANISM (2) Anemia Code(s): D64.9 - ANEMIA, UNSPECIFIED Qualifiers: Other causes of anemia: other cause, not classified Qualified Code(s): D64.89 - Other specified anemias (3) CAD (coronary artery disease) Code(s): I25.10 - ATHSCL HEART DISEASE OF [place] CORONARY ARTERY W/O ANG PCTRS (4) CHF (congestive heart failure) Code(s): I50.9 - HEART FAILURE, UNSPECIFIED Qualifiers: Qualified Code(s): I50.9 - Heart failure, unspecified (5) Diverticula of colon Code(s): K57.30 - DVRTCLOS OF LG INT W/O PERFORATION OR ABSCESS W/O BLEEDING (6) Hiatal hernia Code(s): K44.9 - DIAPHRAGMATIC HERNIA WITHOUT OBSTRUCTION OR GANGRENE (7) Hypothyroidism Code(s): E03.9 - HYPOTHYROIDISM, UNSPECIFIED (8) Parkinson disease Code(s): G20 - PARKINSON'S DISEASE (9) Seizure disorder Code(s): G40.909 - EPILEPSY, UNSP, NOT INTRACTABLE, WITHOUT STATUS EPILEPTICUS 10 gm positive bacteremia plan continue abx will continue abx for now incentive malinda rest as per the team physio
--- NOTE | 2018-09-04 18:52 | PN ---
Teaching Attending Note Name of Resident: Pallavi Celaya ATTENDING PHYSICIAN STATEMENT I saw and evaluated the patient. I reviewed the resident's note and discussed the case with the resident. I agree with the resident's findings and plan as documented. SUBJECTIVE: Patient has no complaints. OBJECTIVE: Vital Signs Period Temp Pulse Resp BP Sys/Riggins Pulse Ox Last 24 Hr 97.9 F-98.5 F 76-97 18-24 126-148/68-74 98-98 HEART: S1S2, RRR LUNGS: Scattered crackles ABDOMEN: Soft, non-tender, non-distended, normal BS EXTREMITIES: No edema Current Medications Generic Name Dose Route Start Last Admin Trade Name Freq PRN Reason Stop Dose Admin Acetaminophen 650 mg 08/31/18 18:55 Tylenol - PO Q6H PRN FEVER Albuterol/Ipratropium 1 amp 09/01/18 08:00 09/04/18 15:38 Duoneb - NEB 1 amp RQID [facility] Administration Buspirone HCl 2.5 mg 08/31/18 18:54 Buspar - PO DAILY PRN ANXIETY Docusate Sodium 100 mg 09/01/18 10:00 09/04/18 09:59 Colace - PO 100 mg DAILY [facility] Administration Ferrous Sulfate 325 mg 08/31/18 22:00 09/04/18 09:59 Feosol - PO 325 mg BID [facility] Administration Heparin Sodium (Porcine) 5,000 unit 09/02/18 22:00 09/04/18 09:59 Heparin - SQ 5,000 unit BID [facility] Administration Piperacillin Sod/Tazobactam 50 mls @ 100 mls/hr 09/01/18 19:30 09/04/18 17:31 Sod 3.375 gm/ Dextrose IVPB 100 mls/hr Q8H-IV [facility] Administration Protocol Vancomycin HCl 1,250 mg/ 250 mls @ 250 mls/2 hr 09/02/18 12:00 09/04/18 11:36 Dextrose IVPB 250 mls/2 hr Q24H [facility] Administration Protocol Lactobacillus Acidophilus 1 tab 09/01/18 10:00 09/04/18 09:59 Bacid - PO 1 tab DAILY [facility] Administration Levothyroxine Sodium 50 mcg 09/01/18 07:00 09/04/18 06:07 Synthroid - PO 50 mcg DAILY@0700 [facility] Administration Prednisone 40 mg 09/04/18 10:00 09/04/18 09:59 Deltasone - PO 09/05/18 10:01 40 mg DAILY [facility] Administration Quetiapine Fumarate 25 mg 08/31/18 22:00 09/03/18 21:30 Seroquel - PO 25 mg HS [facility] Administration Risperidone 0.25 mg 09/02/18 10:00 09/04/18 09:59 Risperdal - PO 0.25 mg DAILY [facility] Administration Sertraline HCl 100 mg 09/01/18 10:00 09/04/18 09:59 Zoloft - PO 100 mg DAILY [facility] Administration ASSESSMENT AND PLAN: This is an 88 year old woman with a history of hypothyroidism, Parkinson disease , dementia, anemia, ESBL UTIs, chronic diastolic heart failure, COPD, HTN who presented to the ED with cough and chest congestion. 1. Sepsis secondary to pneumonia - Continue Zosyn, Vancomycin 2. Acute exacerbation of COPD - Continue Prednisone taper, DuoNeb 3. Chronic diastolic heart failure - Stable 4. Dementia with anxiety and depression - Continue Zoloft, Seroquel, BuSpar, Risperdal 5. Anemia - Continue ferrous sulfate 6. Hypothyroidism - Continue Synthroid 7. Dysphagia 8. Parkinson disease 9. HTN
[2018-09-04] MEDS: QUEtiapine FUMARATE 25 MG TABLET (FP) PO SCH (22:46)
[2018-09-05] MEDS ORDERED: PIPERACILLIN/TAZOBACTAM 3.375 GM VIAL IVPB ONE ×3 (01:14→17:33)
[2018-09-05] MEDS ORDERED: DEXTROSE 5%-WATER - 50 ML IVPB ONE ×3 (01:15→17:33)
[2018-09-05] MEDS: PIPERACILLIN/TAZOB 3.375 GM 3.375 GM in DEXTROSE 5%-WATER - 50 ML IVPB SCH ×3 (01:40→17:36)
[2018-09-05] MEDS: LEVOTHYROXINE NA 50 MCG TABLET (FP) PO SCH (06:07)
[2018-09-05 07:50] LABS: BASO % 0.5 % (0-2.0); EOS % 1.8 % (0-4.5); HEMATOCRIT 35.7 % (32.4-45.2); HEMOGLOBIN 11.2 GM/dL (10.7-15.3); LYMPH % 17.5 % (8-40); MCH 26.8 pg (25.7-33.7); MCHC 31.4 g/dl (32.0-36.0); MEAN CELL VOLUME 85.2 fl (80-96); MEAN PLT VOLUME 7.2 fl (7.5-11.1); MONO % 6.9 % (3.8-10.2); NEUT % 73.3 % (42.8-82.8); PLATELET COUNT 469 K/MM3 (134-434); RBC 4.19 M/mm3 (3.60-5.2); RDW 15.1 % (11.6-15.6); WHITE BLOOD COUNT 16.9 K/mm3 (4.0-10.0)
[2018-09-05 08:03] LABS: ANION GAP 8 MMOL/L (8-16); BLOOD UREA NITROGEN 17 mg/dL (7-18); CALCIUM 8.8 mg/dL (8.5-10.1); CHLORIDE 106 mmol/L (98-107); CO2 26 mmol/L (21-32); CREATININE 0.9 mg/dL (0.55-1.3); GLUCOSE,RANDOM 77 mg/dL (74-106); POTASSIUM 3.8 mmol/L (3.5-5.1); SODIUM 140 mmol/L (136-145)
[2018-09-05] MEDS: ALBUTEROL SO4 2.5/IPRATROPIUM 0.5 INH SOL 3 ML VIAL.NEB. NEB SCH ×4 (08:30→20:40)
[2018-09-05] MEDS ORDERED: PT OWN MED DRAWER 7, Y5N ONE (09:26)
[2018-09-05] MEDS: predniSONE 20 MG TABLET (UD) PO SCH (09:30)
[2018-09-05] MEDS: SERTRALINE HCL 50 MG TABLET (FP) PO SCH (09:30)
[2018-09-05] MEDS: risperiDONE 0.25 MG TABLET (FP) PO SCH (09:30)
[2018-09-05] MEDS: LACTOBACILLUS ACIDOPHILUS 1 TABLET PO SCH (09:30)
[2018-09-05] MEDS: FERROUS SO4 325 MG TABLET (FP) PO SCH ×2 (09:30→23:40)
[2018-09-05] MEDS: HEPARIN NA (PORCINE) 5,000 UNITS/ML 1ML VIAL SQ SCH ×2 (09:30→23:36)
[2018-09-05] MEDS: DOCUSATE SODIUM 100 MG CAPSULE (FP) PO SCH (09:30)
[2018-09-05 11:41] LABS: ANISOCYTOSIS 1+; MACROCYTOSIS 0; OVALOCYTE 1+; PLATELET ESTIMATE NORMAL; TEAR DROP CELLS 1+
--- NOTE | 2018-09-05 11:52 | PN ---
Progress Note, Physician History of Present Illness: patient doing better today breathing better sitting in chair still requiring oxygen - Current Medication List Current Medications: Active Medications Acetaminophen (Tylenol -) 650 mg PO Q6H PRN PRN Reason: FEVER Albuterol/Ipratropium (Duoneb -) 1 amp NEB RQID [facility] Last Admin: 09/05/18 08:30 Dose: 1 amp Buspirone HCl (Buspar -) 2.5 mg PO DAILY PRN PRN Reason: ANXIETY Docusate Sodium (Colace -) 100 mg PO DAILY [facility] Last Admin: 09/05/18 09:30 Dose: 100 mg Ferrous Sulfate (Feosol -) 325 mg PO BID [facility] Last Admin: 09/05/18 09:30 Dose: 325 mg Heparin Sodium (Porcine) (Heparin -) 5,000 unit SQ BID [facility] Last Admin: 09/05/18 09:30 Dose: 5,000 unit Piperacillin Sod/Tazobactam (Sod 3.375 gm/ Dextrose) 50 mls @ 100 mls/hr IVPB Q8H-IV [facility]; Protocol Last Admin: 09/05/18 09:30 Dose: 100 mls/hr Lactobacillus Acidophilus (Bacid -) 1 tab PO DAILY [facility] Last Admin: 09/05/18 09:30 Dose: 1 tab Levothyroxine Sodium (Synthroid -) 50 mcg PO DAILY@0700 [facility] Last Admin: 09/05/18 06:07 Dose: 50 mcg Quetiapine Fumarate (Seroquel -) 25 mg PO HS [facility] Last Admin: 09/04/18 22:46 Dose: 25 mg Risperidone (Risperdal -) 0.25 mg PO DAILY [facility] Last Admin: 09/05/18 09:30 Dose: 0.25 mg Sertraline HCl (Zoloft -) 100 mg PO DAILY [facility] Last Admin: 09/05/18 09:30 Dose: 100 mg - Objective Vital Signs: Vital Signs Temperature 97.6 F 09/05/18 06:00 Pulse Rate 83 09/05/18 06:00 Respiratory Rate 18 09/05/18 06:00 Blood Pressure 131/63 09/05/18 06:00 O2 Sat by Pulse Oximetry (%) 98 09/04/18 21:00 Constitutional: Yes: No Distress, Calm Respiratory: Yes: Regular, Poor Air Entry, Rhonchi Gastrointestinal: Yes: Normal Bowel Sounds, Soft Neurological: Yes: Alert, Oriented Psychiatric: Yes: Alert, Oriented Labs: CBC, BMP 09/05/18 06:30 09/05/18 06:30 INR, PTT INR 1.19 (0.83-1.09) H 08/31/18 15:37 Assessment/Plan Problem List - Problems (1) Pneumonia Code(s): J18.9 - PNEUMONIA, UNSPECIFIED ORGANISM (2) Anemia Code(s): D64.9 - ANEMIA, UNSPECIFIED Qualifiers: Other causes of anemia: other cause, not classified Qualified Code(s): D64.89 - Other specified anemias (3) CAD (coronary artery disease) Code(s): I25.10 - ATHSCL HEART DISEASE OF [place] CORONARY ARTERY W/O ANG PCTRS (4) CHF (congestive heart failure) Code(s): I50.9 - HEART FAILURE, UNSPECIFIED Qualifiers: Qualified Code(s): I50.9 - Heart failure, unspecified (5) Diverticula of colon Code(s): K57.30 - DVRTCLOS OF LG INT W/O PERFORATION OR ABSCESS W/O BLEEDING (6) Hiatal hernia Code(s): K44.9 - DIAPHRAGMATIC HERNIA WITHOUT OBSTRUCTION OR GANGRENE (7) Hypothyroidism Code(s): E03.9 - HYPOTHYROIDISM, UNSPECIFIED (8) Parkinson disease Code(s): G20 - PARKINSON'S DISEASE (9) Seizure disorder Code(s): G40.909 - EPILEPSY, UNSP, NOT INTRACTABLE, WITHOUT STATUS EPILEPTICUS 10 gm positive bacteremia plan continue abx will stop vanco incentive malinda rest as per the team
--- NOTE | 2018-09-05 12:29 | PN ---
Progress Note (short form) - Note Progress Note: PULMONARY OOB TO CHAIR APPEARS STABLE Constitutional: Yes: Pallor, Thin Eyes: Yes: EOM Intact HENT: Yes: Normocephalic Neck: Yes: Trachea Midline Cardiovascular: Yes: Regular Rate and Rhythm Respiratory: Yes: Rales, Rhonchi Gastrointestinal: Yes: Soft Edema: No Neurological: Yes: Pre-Existing Deficit Labs: noted Imaging REVIEWED EKG: Report Reviewed, Image Reviewed Problem List - Problems (1) Pneumonia Code(s): J18.9 - PNEUMONIA, UNSPECIFIED ORGANISM (2) Anemia Code(s): D64.9 - ANEMIA, UNSPECIFIED Qualifiers: Other causes of anemia: other cause, not classified Qualified Code(s): D64.89 - Other specified anemias (3) CAD (coronary artery disease) Code(s): I25.10 - ATHSCL HEART DISEASE OF [place] CORONARY ARTERY W/O ANG PCTRS (4) CHF (congestive heart failure) Code(s): I50.9 - HEART FAILURE, UNSPECIFIED Qualifiers: Qualified Code(s): I50.9 - Heart failure, unspecified (5) Parkinson disease Code(s): G20 - PARKINSON'S DISEASE (6) Seizure disorder Code(s): G40.909 - EPILEPSY, UNSP, NOT INTRACTABLE, WITHOUT STATUS EPILEPTICUS Assessment/Plan ANTIBIOTICS PER ID BRONCHODILATORS/O2 SUPPLEMENTATION ASPIRATION PRECAUTIONS DVT PROPHYLAXSIS Kalpesh GUADARRAMA MD Problem List - Problems (1) Pneumonia Code(s): J18.9 - PNEUMONIA, UNSPECIFIED ORGANISM (2) Anemia Code(s): D64.9 - ANEMIA, UNSPECIFIED Qualifiers: Other causes of anemia: other cause, not classified Qualified Code(s): D64.89 - Other specified anemias (3) CAD (coronary artery disease) Code(s): I25.10 - ATHSCL HEART DISEASE OF [place] CORONARY ARTERY W/O ANG PCTRS (4) CHF (congestive heart failure) Code(s): I50.9 - HEART FAILURE, UNSPECIFIED (5) Parkinson disease Code(s): G20 - PARKINSON'S DISEASE (6) Seizure disorder Code(s): G40.909 - EPILEPSY, UNSP, NOT INTRACTABLE, WITHOUT STATUS EPILEPTICUS
--- NOTE | 2018-09-05 15:08 | PN ---
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 Pt on [facility] soft/thin liquids.
--- NOTE | 2018-09-05 15:19 | PN ---
Physical Exam: SUBJECTIVE: Patient seen and examined, States that has improved today, still has productive cough with white sputum. has not walked yet, she walks with a walker at home and is not on O2 NC OBJECTIVE: Vital Signs Period Temp Pulse Resp BP Sys/Riggins Pulse Ox Last 24 Hr 97.5 F-98.3 F 83-100 18-20 131-148/63-72 96-98 she is in no distress, has 2lnc ON, No use of accessory muscles. Lungs: she has no wheezing, good air movement but has diffuse rales no tiffanie edema cardiac: irregulary irregular MMM A&OX3 Laboratory Results - last 24 hr 09/05/18 09/05/18 06:30 06:30 WBC 16.9 H RBC 4.19 Hgb 11.2 Hct 35.7 MCV 85.2 MCH 26.8 MCHC 31.4 L RDW 15.1 Plt Count 469 H MPV 7.2 L Absolute Neuts (auto) 12.4 H Neutrophils % 73.3 Neutrophils % (Manual) 80.0 Band Neutrophils % 0.0 Lymphocytes % 17.5 D Lymphocytes % (Manual) 8.0 D Monocytes % 6.9 Monocytes % (Manual) 5 D Eosinophils % 1.8 D Eosinophils % (Manual) 1.0 Basophils % 0.5 Basophils % (Manual) 0.0 Myelocytes % (Man) 0 Promyelocytes % (Man) 0 Blast Cells % (Manual) 0 Nucleated RBC % 0 Metamyelocytes 0 D Hypochromia 0 Platelet Estimate Normal Platelet Comment Present Polychromasia 0 Poikilocytosis 0 Anisocytosis 1+ Microcytosis 0 Macrocytosis 0 Spherocytes 1+ Tear Drop Cells 1+ Ovalocytes 1+ Sodium 140 Potassium 3.8 Chloride 106 Carbon Dioxide 26 Anion Gap 8 BUN 17 Creatinine 0.9 Creat Clearance w eGFR 59.09 Random Glucose 77 Calcium 8.8 Active Medications Generic Name Dose Route Start Last Admin Trade Name Freq PRN Reason Stop Dose Admin Acetaminophen 650 mg 08/31/18 18:55 Tylenol - PO Q6H PRN FEVER Albuterol/Ipratropium 1 amp 09/01/18 08:00 09/05/18 12:57 Duoneb - NEB 1 amp RQID [facility] Administration Buspirone HCl 2.5 mg 08/31/18 18:54 Buspar - PO DAILY PRN ANXIETY Docusate Sodium 100 mg 09/01/18 10:00 09/05/18 09:30 Colace - PO 100 mg DAILY [facility] Administration Ferrous Sulfate 325 mg 08/31/18 22:00 09/05/18 09:30 Feosol - PO 325 mg BID [facility] Administration Heparin Sodium (Porcine) 5,000 unit 09/02/18 22:00 09/05/18 09:30 Heparin - SQ 5,000 unit BID [facility] Administration Piperacillin Sod/Tazobactam 50 mls @ 100 mls/hr 09/01/18 19:30 09/05/18 09:30 Sod 3.375 gm/ Dextrose IVPB 100 mls/hr Q8H-IV [facility] Administration Protocol Lactobacillus Acidophilus 1 tab 09/01/18 10:00 09/05/18 09:30 Bacid - PO 1 tab DAILY [facility] Administration Levothyroxine Sodium 50 mcg 09/01/18 07:00 09/05/18 06:07 Synthroid - PO 50 mcg DAILY@0700 [facility] Administration Quetiapine Fumarate 25 mg 08/31/18 22:00 09/04/18 22:46 Seroquel - PO 25 mg HS [facility] Administration Risperidone 0.25 mg 09/02/18 10:00 09/05/18 09:30 Risperdal - PO 0.25 mg DAILY [facility] Administration Sertraline HCl 100 mg 09/01/18 10:00 09/05/18 09:30 Zoloft - PO 100 mg DAILY [facility] Administration ASSESSMENT/PLAN: 88 y/o woman w chronic diastolic heart failure, COPD, hypothyroidism, Parkinson disease, dementia, anemia, ESBL UTIs, HTN wP/W Sepsis in the setting of PNA, is improving at this time. 1. Sepsis secondary to pneumonia, has elevation in WBC but is afebrile - Continue Zosyn, - Vancomycin dcED PER IF recs on 09/05 2. Acute exacerbation of COPD - Continue Prednisone taper, DuoNeb -Will ask the nursing staff to walk with her will ask respiratory to evlaute the sat off O2 NC 3. Chronic diastolic heart failure - Stable 4. Dementia with anxiety and depression - Continue Zoloft, Seroquel, BuSpar, Risperdal 5. Anemia - Continue ferrous sulfate 6. Hypothyroidism - Continue Synthroid 7. Dysphagia 8. Parkinson disease 9. HTN Visit type - Emergency Visit Emergency Visit: No - New Patient This patient is new to me today: Yes Date on this admission: 09/05/18 - Critical Care Critical Care patient: No - Discharge Referral Referred to [facility] Med P.C.: No
[2018-09-05] MEDS: QUEtiapine FUMARATE 25 MG TABLET (FP) PO SCH (23:40)
[2018-09-06] MEDS ORDERED: PIPERACILLIN/TAZOBACTAM 3.375 GM VIAL IVPB ONE ×3 (01:05→18:04)
[2018-09-06] MEDS ORDERED: DEXTROSE 5%-WATER - 50 ML IVPB ONE ×3 (01:05→18:04)
[2018-09-06] MEDS: PIPERACILLIN/TAZOB 3.375 GM 3.375 GM in DEXTROSE 5%-WATER - 50 ML IVPB SCH ×3 (01:18→18:25)
[2018-09-06] MEDS: LEVOTHYROXINE NA 50 MCG TABLET (FP) PO SCH (06:44)
--- NOTE | 2018-09-06 09:00 | PN ---
Progress Note, Physician History of Present Illness: patient is doing well, without any issues overnight - Current Medication List Current Medications: Active Medications Acetaminophen (Tylenol -) 650 mg PO Q6H PRN PRN Reason: FEVER Buspirone HCl (Buspar -) 2.5 mg PO DAILY PRN PRN Reason: ANXIETY Docusate Sodium (Colace -) 100 mg PO DAILY [facility] Last Admin: 09/05/18 09:30 Dose: 100 mg Ferrous Sulfate (Feosol -) 325 mg PO BID [facility] Last Admin: 09/05/18 23:40 Dose: 325 mg Heparin Sodium (Porcine) (Heparin -) 5,000 unit SQ BID [facility] Last Admin: 09/05/18 23:36 Dose: 5,000 unit Piperacillin Sod/Tazobactam (Sod 3.375 gm/ Dextrose) 50 mls @ 100 mls/hr IVPB Q8H-IV [facility]; Protocol Last Admin: 09/06/18 01:18 Dose: 100 mls/hr Lactobacillus Acidophilus (Bacid -) 1 tab PO DAILY [facility] Last Admin: 09/05/18 09:30 Dose: 1 tab Levothyroxine Sodium (Synthroid -) 50 mcg PO DAILY@0700 [facility] Last Admin: 09/06/18 06:44 Dose: 50 mcg Quetiapine Fumarate (Seroquel -) 25 mg PO HS [facility] Last Admin: 09/05/18 23:40 Dose: 25 mg Risperidone (Risperdal -) 0.25 mg PO DAILY [facility] Last Admin: 09/05/18 09:30 Dose: 0.25 mg Sertraline HCl (Zoloft -) 100 mg PO DAILY [facility] Last Admin: 09/05/18 09:30 Dose: 100 mg - Objective Vital Signs: Vital Signs Temperature 97.6 F 09/06/18 06:23 Pulse Rate 68 09/06/18 06:23 Respiratory Rate 20 09/06/18 06:23 Blood Pressure 127/59 L 09/06/18 06:23 O2 Sat by Pulse Oximetry (%) 96 09/05/18 21:00 Constitutional: Yes: Well Nourished, No Distress, Calm Eyes: Yes: WNL, Conjunctiva Clear, EOM Intact HENT: Yes: WNL, Atraumatic, Normocephalic Neck: Yes: WNL, Supple, Trachea Midline Cardiovascular: Yes: WNL, Regular Rate and Rhythm Respiratory: Yes: WNL, Regular, CTA Bilaterally Gastrointestinal: Yes: WNL, Normal Bowel Sounds, Soft ...Rectal Exam: Yes: Deferred Musculoskeletal: Yes: WNL Extremities: Yes: WNL Edema: No Integumentary: Yes: WNL Neurological: Yes: WNL, Alert, Oriented ...Motor Strength: WNL Psychiatric: Yes: WNL, Alert, Oriented Labs: CBC, BMP 09/05/18 06:30 09/05/18 06:30 INR, PTT INR 1.19 (0.83-1.09) H 08/31/18 15:37 Problem List - Problems (1) Anxiety and depression Code(s): F41.9 - ANXIETY DISORDER, UNSPECIFIED; F32.9 - MAJOR DEPRESSIVE DISORDER, SINGLE EPISODE, UNSPECIFIED (2) Dysphagia Code(s): R13.10 - DYSPHAGIA, UNSPECIFIED (3) Pneumonia Code(s): J18.9 - PNEUMONIA, UNSPECIFIED ORGANISM (4) Acute renal failure Code(s): N17.9 - ACUTE KIDNEY FAILURE, UNSPECIFIED Qualifiers: Acute renal failure type: unspecified Qualified Code(s): N17.9 - Acute kidney failure, unspecified (5) Anemia Code(s): D64.9 - ANEMIA, UNSPECIFIED Qualifiers: Other causes of anemia: other cause, not classified Qualified Code(s): D64.89 - Other specified anemias (6) Bacteremia due to Gram-negative bacteria Code(s): R78.81 - BACTEREMIA (7) Bradycardia Code(s): R00.1 - BRADYCARDIA, UNSPECIFIED (8) CAD (coronary artery disease) Code(s): I25.10 - ATHSCL HEART DISEASE OF [place] CORONARY ARTERY W/O ANG PCTRS (9) CHF (congestive heart failure) Code(s): I50.9 - HEART FAILURE, UNSPECIFIED Assessment/Plan 88 y/o woman w chronic diastolic heart failure, COPD, hypothyroidism, Parkinson disease, dementia, anemia, ESBL UTIs, HTN wP/W Sepsis in the setting of PNA, is improving at this time. 1. Sepsis secondary to pneumonia, has elevation in WBC but is afebrile - Continue pipercillin/tazobactam - Vancomycin dcED PER IF recs on 09/05 2. Acute exacerbation of COPD - Continue Prednisone taper, DuoNeb -Will ask the nursing staff to walk with her will ask respiratory to evlaute the sat off O2 NC 3. Chronic diastolic heart failure - Stable 4. Dementia with anxiety and depression - C/W Zoloft, - c/w Seroquel, - c/w BuSpar - c/w Risperdal 5. Anemia - Continue ferrous sulfate 6. Hypothyroidism - Continue Synthroid 7. Dysphagia 8. Parkinson disease 9. HTN
[2018-09-06] MEDS: SERTRALINE HCL 50 MG TABLET (FP) PO SCH (09:26)
[2018-09-06] MEDS: risperiDONE 0.25 MG TABLET (FP) PO SCH (09:26)
[2018-09-06] MEDS: LACTOBACILLUS ACIDOPHILUS 1 TABLET PO SCH (09:26)
[2018-09-06] MEDS: FERROUS SO4 325 MG TABLET (FP) PO SCH ×2 (09:26→21:26)
[2018-09-06] MEDS: HEPARIN NA (PORCINE) 5,000 UNITS/ML 1ML VIAL SQ SCH ×2 (09:26→21:27)
[2018-09-06] MEDS: DOCUSATE SODIUM 100 MG CAPSULE (FP) PO SCH (09:27)
--- NOTE | 2018-09-06 11:15 | PN ---
Progress Note (short form) - Note Progress Note: Resting in NAD. Some residual nonproductive cough. No fevers. Intake & Output 09/03/18 09/04/18 09/05/18 09/06/18 23:59 23:59 23:59 23:59 Intake Total 260 350 750 50 Balance 260 350 750 50 Weight 85 lb Last Vital Signs Temp Pulse Resp BP Pulse Ox 97.9 F 82 22 H 141/64 95 09/06/18 10:00 09/06/18 10:00 09/06/18 10:00 09/06/18 10:00 09/06/18 09:00 Active Medications Acetaminophen (Tylenol -) 650 mg PO Q6H PRN PRN Reason: FEVER Buspirone HCl (Buspar -) 2.5 mg PO DAILY PRN PRN Reason: ANXIETY Docusate Sodium (Colace -) 100 mg PO DAILY [facility] Last Admin: 09/06/18 09:27 Dose: Not Given Ferrous Sulfate (Feosol -) 325 mg PO BID [facility] Last Admin: 09/06/18 09:26 Dose: 325 mg Heparin Sodium (Porcine) (Heparin -) 5,000 unit SQ BID [facility] Last Admin: 09/06/18 09:26 Dose: 5,000 unit Piperacillin Sod/Tazobactam (Sod 3.375 gm/ Dextrose) 50 mls @ 100 mls/hr IVPB Q8H-IV [facility]; Protocol Last Admin: 09/06/18 09:27 Dose: 100 mls/hr Lactobacillus Acidophilus (Bacid -) 1 tab PO DAILY [facility] Last Admin: 09/06/18 09:26 Dose: 1 tab Levothyroxine Sodium (Synthroid -) 50 mcg PO DAILY@0700 [facility] Last Admin: 09/06/18 06:44 Dose: 50 mcg Quetiapine Fumarate (Seroquel -) 25 mg PO HS [facility] Last Admin: 09/05/18 23:40 Dose: 25 mg Risperidone (Risperdal -) 0.25 mg PO DAILY [facility] Last Admin: 09/06/18 09:26 Dose: 0.25 mg Sertraline HCl (Zoloft -) 100 mg PO DAILY [facility] Last Admin: 09/06/18 09:26 Dose: 100 mg Gen: NAD at rest Heart: RRR Lung: scattered rhonchi Abd: soft, nontender Ext: no edema Laboratory Results - last 24 hr 01/04/19 06:30 Neutrophils % (Manual) 80.0 Band Neutrophils % 0.0 Lymphocytes % (Manual) 8.0 D Monocytes % (Manual) 5 D Eosinophils % (Manual) 1.0 Basophils % (Manual) 0.0 Myelocytes % (Man) 0 Promyelocytes % (Man) 0 Blast Cells % (Manual) 0 Metamyelocytes 0 D Hypochromia 0 Platelet Estimate Normal Platelet Comment Present Polychromasia 0 Poikilocytosis 0 Anisocytosis 1+ Microcytosis 0 Macrocytosis 0 Spherocytes 1+ Tear Drop Cells 1+ Ovalocytes 1+ A/P Pneumonia Sepsis Acute COPD Exacerbation LV Diastolic Dysfunction HTN Hypothyroidism Parkinsons Dementia - ABX per ID: consider oral therapy - Monitor off systemic steroids - inhaled bronchodilators - O2 to keep Spo2 >90% - aspiration precautions - DVT prophylaxis Dr Bryson Problem List - Problems (1) Pneumonia Code(s): J18.9 - PNEUMONIA, UNSPECIFIED ORGANISM (2) Anemia Code(s): D64.9 - ANEMIA, UNSPECIFIED Qualifiers: Other causes of anemia: other cause, not classified Qualified Code(s): D64.89 - Other specified anemias (3) CAD (coronary artery disease) Code(s): I25.10 - ATHSCL HEART DISEASE OF [place] CORONARY ARTERY W/O ANG PCTRS (4) CHF (congestive heart failure) Code(s): I50.9 - HEART FAILURE, UNSPECIFIED (5) Diverticula of colon Code(s): K57.30 - DVRTCLOS OF LG INT W/O PERFORATION OR ABSCESS W/O BLEEDING (6) Hiatal hernia Code(s): K44.9 - DIAPHRAGMATIC HERNIA WITHOUT OBSTRUCTION OR GANGRENE (7) Hypothyroidism Code(s): E03.9 - HYPOTHYROIDISM, UNSPECIFIED (8) Parkinson disease Code(s): G20 - PARKINSON'S DISEASE (9) Seizure disorder Code(s): G40.909 - EPILEPSY, UNSP, NOT INTRACTABLE, WITHOUT STATUS EPILEPTICUS
--- NOTE | 2018-09-06 20:10 | PN ---
Progress Note, Physician History of Present Illness: Pt seen and examined. She is alert and states she if feeling better, without shortness of breath. States she still has a residual cough. Remains afebrile. - Current Medication List Current Medications: Active Medications Acetaminophen (Tylenol -) 650 mg PO Q6H PRN PRN Reason: FEVER Buspirone HCl (Buspar -) 2.5 mg PO DAILY PRN PRN Reason: ANXIETY Docusate Sodium (Colace -) 100 mg PO DAILY [facility] Last Admin: 09/06/18 09:27 Dose: Not Given Ferrous Sulfate (Feosol -) 325 mg PO BID [facility] Last Admin: 09/06/18 09:26 Dose: 325 mg Heparin Sodium (Porcine) (Heparin -) 5,000 unit SQ BID [facility] Last Admin: 09/06/18 09:26 Dose: 5,000 unit Piperacillin Sod/Tazobactam (Sod 3.375 gm/ Dextrose) 50 mls @ 100 mls/hr IVPB Q8H-IV [facility]; Protocol Last Admin: 09/06/18 18:25 Dose: 100 mls/hr Lactobacillus Acidophilus (Bacid -) 1 tab PO DAILY [facility] Last Admin: 09/06/18 09:26 Dose: 1 tab Levothyroxine Sodium (Synthroid -) 50 mcg PO DAILY@0700 [facility] Last Admin: 09/06/18 06:44 Dose: 50 mcg Quetiapine Fumarate (Seroquel -) 25 mg PO HS [facility] Last Admin: 09/05/18 23:40 Dose: 25 mg Risperidone (Risperdal -) 0.25 mg PO DAILY [facility] Last Admin: 09/06/18 09:26 Dose: 0.25 mg Sertraline HCl (Zoloft -) 100 mg PO DAILY [facility] Last Admin: 09/06/18 09:26 Dose: 100 mg - Objective Vital Signs: Vital Signs Temperature 98.1 F 09/06/18 15:14 Pulse Rate 90 09/06/18 15:14 Respiratory Rate 18 09/06/18 15:14 Blood Pressure 116/61 09/06/18 15:14 O2 Sat by Pulse Oximetry (%) 95 09/06/18 20:03 Constitutional: Yes: No Distress, Calm Cardiovascular: Yes: Regular Rate and Rhythm Respiratory: Yes: Rales (basilar) Gastrointestinal: Yes: Normal Bowel Sounds, Soft Extremities: Yes: WNL Neurological: Yes: Alert Labs: CBC, BMP 09/05/18 06:30 09/05/18 06:30 INR, PTT INR 1.19 (0.83-1.09) H 08/31/18 15:37 - ....Imaging Chest X-ray: Report Reviewed Problem List - Problems (1) Pneumonia Code(s): J18.9 - PNEUMONIA, UNSPECIFIED ORGANISM (2) CAD (coronary artery disease) Code(s): I25.10 - ATHSCL HEART DISEASE OF [place] CORONARY ARTERY W/O ANG PCTRS (3) CHF (congestive heart failure) Code(s): I50.9 - HEART FAILURE, UNSPECIFIED (4) Parkinson disease Code(s): G20 - PARKINSON'S DISEASE (5) Seizure disorder Code(s): G40.909 - EPILEPSY, UNSP, NOT INTRACTABLE, WITHOUT STATUS EPILEPTICUS (6) Sepsis Code(s): A41.9 - SEPSIS, UNSPECIFIED ORGANISM Qualifiers: Sepsis type: sepsis due to unspecified organism Qualified Code(s): A41.9 - Sepsis, unspecified organism Assessment/Plan PNA s/p Sepsis CAD CHF Parkinsons -- pt afebrile, without acute respiratory distress -- d/c Zosyn, switch to Augmentin po -- Repeat blood cultures negative -- aspiration precautions
[2018-09-06] MEDS: QUEtiapine FUMARATE 25 MG TABLET (FP) PO SCH (21:26)
[2018-09-07] MEDS: LEVOTHYROXINE NA 50 MCG TABLET (FP) PO SCH (06:37)
[2018-09-07] MEDS: AMOX TR/POT CLAV 500MG/125MG TABLETS (FP) PO SCH ×2 (07:59→17:13)
--- NOTE | 2018-09-07 08:16 | PN ---
Progress Note, Physician History of Present Illness: patient is doing well, without any issues overnight - Current Medication List Current Medications: Active Medications Acetaminophen (Tylenol -) 650 mg PO Q6H PRN PRN Reason: FEVER Amoxicillin/Clavulanate Potassium (Augmentin - 500mg Tablet) 1 tab PO BID@0800, 1730 [facility] Last Admin: 09/07/18 07:59 Dose: 1 tab Buspirone HCl (Buspar -) 2.5 mg PO DAILY PRN PRN Reason: ANXIETY Docusate Sodium (Colace -) 100 mg PO DAILY [facility] Last Admin: 09/06/18 09:27 Dose: Not Given Ferrous Sulfate (Feosol -) 325 mg PO BID [facility] Last Admin: 09/06/18 21:26 Dose: 325 mg Heparin Sodium (Porcine) (Heparin -) 5,000 unit SQ BID [facility] Last Admin: 09/06/18 21:27 Dose: 5,000 unit Lactobacillus Acidophilus (Bacid -) 1 tab PO DAILY [facility] Last Admin: 09/06/18 09:26 Dose: 1 tab Levothyroxine Sodium (Synthroid -) 50 mcg PO DAILY@0700 [facility] Last Admin: 09/07/18 06:37 Dose: 50 mcg Quetiapine Fumarate (Seroquel -) 25 mg PO HS [facility] Last Admin: 09/06/18 21:26 Dose: 25 mg Risperidone (Risperdal -) 0.25 mg PO DAILY [facility] Last Admin: 09/06/18 09:26 Dose: 0.25 mg Sertraline HCl (Zoloft -) 100 mg PO DAILY [facility] Last Admin: 09/06/18 09:26 Dose: 100 mg - Objective Vital Signs: Vital Signs Temperature 98.5 F 09/07/18 06:42 Pulse Rate 74 09/07/18 06:42 Respiratory Rate 20 09/07/18 06:42 Blood Pressure 126/55 L 09/07/18 06:42 O2 Sat by Pulse Oximetry (%) 95 09/06/18 20:03 Constitutional: Yes: Well Nourished, No Distress, Calm Eyes: Yes: WNL, Conjunctiva Clear, EOM Intact HENT: Yes: WNL, Atraumatic, Normocephalic Neck: Yes: WNL, Supple, Trachea Midline Cardiovascular: Yes: WNL, Regular Rate and Rhythm, S1, S2 Respiratory: Yes: WNL, Regular, CTA Bilaterally Gastrointestinal: Yes: WNL, Normal Bowel Sounds, Soft Edema: Yes Integumentary: Yes: WNL Neurological: Yes: WNL, Alert, Oriented ...Motor Strength: WNL Psychiatric: Yes: WNL, Alert, Oriented Labs: INR, PTT INR 1.19 (0.83-1.09) H 08/31/18 15:37 Problem List - Problems (1) Anxiety and depression Code(s): F41.9 - ANXIETY DISORDER, UNSPECIFIED; F32.9 - MAJOR DEPRESSIVE DISORDER, SINGLE EPISODE, UNSPECIFIED (2) Dysphagia Code(s): R13.10 - DYSPHAGIA, UNSPECIFIED (3) Pneumonia Code(s): J18.9 - PNEUMONIA, UNSPECIFIED ORGANISM (4) Acute renal failure Code(s): N17.9 - ACUTE KIDNEY FAILURE, UNSPECIFIED Qualifiers: Acute renal failure type: unspecified Qualified Code(s): N17.9 - Acute kidney failure, unspecified (5) Anemia Code(s): D64.9 - ANEMIA, UNSPECIFIED Qualifiers: Other causes of anemia: other cause, not classified Qualified Code(s): D64.89 - Other specified anemias (6) Bacteremia due to Gram-negative bacteria Code(s): R78.81 - BACTEREMIA (7) Bradycardia Code(s): R00.1 - BRADYCARDIA, UNSPECIFIED (8) CAD (coronary artery disease) Code(s): I25.10 - ATHSCL HEART DISEASE OF [place] CORONARY ARTERY W/O ANG PCTRS (9) CHF (congestive heart failure) Code(s): I50.9 - HEART FAILURE, UNSPECIFIED Assessment/Plan 88 y/o woman w chronic diastolic heart failure, COPD, hypothyroidism, Parkinson disease, dementia, anemia, ESBL UTIs, HTN wP/W Sepsis in the setting of PNA, is improving at this time. 1. Sepsis secondary to pneumonia, has elevation in WBC but is afebrile - Continue pipercillin/tazobactam - Vancomycin dcED PER IF recs on 09/05 2. Acute exacerbation of COPD - Continue Prednisone taper, DuoNeb -Will ask the nursing staff to walk with her will ask respiratory to evlaute the sat off O2 NC 3. Chronic diastolic heart failure - Stable 4. Dementia with anxiety and depression - C/W Zoloft, - c/w Seroquel, - c/w BuSpar - c/w Risperdal 5. Anemia - Continue ferrous sulfate 6. Hypothyroidism - Continue Synthroid 7. Dysphagia 8. Parkinson disease 9. HTN
[2018-09-07] MEDS: HEPARIN NA (PORCINE) 5,000 UNITS/ML 1ML VIAL SQ SCH ×2 (09:33→21:13)
[2018-09-07] MEDS: FERROUS SO4 325 MG TABLET (FP) PO SCH ×2 (09:33→21:13)
[2018-09-07] MEDS: DOCUSATE SODIUM 100 MG CAPSULE (FP) PO SCH (09:33)
[2018-09-07] MEDS: LACTOBACILLUS ACIDOPHILUS 1 TABLET PO SCH (09:33)
[2018-09-07] MEDS: SERTRALINE HCL 50 MG TABLET (FP) PO SCH (09:33)
[2018-09-07] MEDS: risperiDONE 0.25 MG TABLET (FP) PO SCH (09:35)
--- NOTE | 2018-09-07 11:06 | PN ---
Progress Note (short form) - Note Progress Note: Resting in NAD. Some nonproductive cough. No fevers. Intake & Output 09/04/18 09/05/18 09/06/18 09/07/18 23:59 23:59 23:59 23:59 Intake Total 350 750 500 200 Balance 350 750 500 200 Last Vital Signs Temp Pulse Resp BP Pulse Ox 98 F 73 20 149/77 97 09/07/18 10:00 09/07/18 10:00 09/07/18 10:00 09/07/18 10:00 09/07/18 09:00 Active Medications Acetaminophen (Tylenol -) 650 mg PO Q6H PRN PRN Reason: FEVER Amoxicillin/Clavulanate Potassium (Augmentin - 500mg Tablet) 1 tab PO BID@0800, 1730 [facility] Last Admin: 09/07/18 07:59 Dose: 1 tab Buspirone HCl (Buspar -) 2.5 mg PO DAILY PRN PRN Reason: ANXIETY Docusate Sodium (Colace -) 100 mg PO DAILY [facility] Last Admin: 09/07/18 09:33 Dose: 100 mg Ferrous Sulfate (Feosol -) 325 mg PO BID [facility] Last Admin: 09/07/18 09:33 Dose: 325 mg Heparin Sodium (Porcine) (Heparin -) 5,000 unit SQ BID [facility] Last Admin: 09/07/18 09:33 Dose: 5,000 unit Lactobacillus Acidophilus (Bacid -) 1 tab PO DAILY [facility] Last Admin: 09/07/18 09:33 Dose: 1 tab Levothyroxine Sodium (Synthroid -) 50 mcg PO DAILY@0700 [facility] Last Admin: 09/07/18 06:37 Dose: 50 mcg Quetiapine Fumarate (Seroquel -) 25 mg PO HS [facility] Last Admin: 09/06/18 21:26 Dose: 25 mg Risperidone (Risperdal -) 0.25 mg PO DAILY [facility] Last Admin: 09/07/18 09:35 Dose: 0.25 mg Sertraline HCl (Zoloft -) 100 mg PO DAILY [facility] Last Admin: 09/07/18 09:33 Dose: 100 mg Gen: NAD at rest Heart: RRR Lung: scattered rhonchi Abd: soft, nontender Ext: no edema A/P Pneumonia Sepsis Acute COPD Exacerbation LV Diastolic Dysfunction HTN Hypothyroidism Parkinsons Dementia - Agree with Augmentin - Monitor off systemic steroids - inhaled bronchodilators - O2 to keep Spo2 >90% - aspiration precautions - DVT prophylaxis - D/C planning Dr Bryson Problem List - Problems (1) Pneumonia Code(s): J18.9 - PNEUMONIA, UNSPECIFIED ORGANISM (2) Anemia Code(s): D64.9 - ANEMIA, UNSPECIFIED Qualifiers: Other causes of anemia: other cause, not classified Qualified Code(s): D64.89 - Other specified anemias (3) CAD (coronary artery disease) Code(s): I25.10 - ATHSCL HEART DISEASE OF [place] CORONARY ARTERY W/O ANG PCTRS (4) CHF (congestive heart failure) Code(s): I50.9 - HEART FAILURE, UNSPECIFIED (5) Diverticula of colon Code(s): K57.30 - DVRTCLOS OF LG INT W/O PERFORATION OR ABSCESS W/O BLEEDING (6) Hiatal hernia Code(s): K44.9 - DIAPHRAGMATIC HERNIA WITHOUT OBSTRUCTION OR GANGRENE (7) Hypothyroidism Code(s): E03.9 - HYPOTHYROIDISM, UNSPECIFIED (8) Parkinson disease Code(s): G20 - PARKINSON'S DISEASE (9) Seizure disorder Code(s): G40.909 - EPILEPSY, UNSP, NOT INTRACTABLE, WITHOUT STATUS EPILEPTICUS
[2018-09-07 12:33] LABS: ALBUMIN 2.5 g/dl (3.4-5.0); ALK PHOS 99 U/L (45-117); ANION GAP 6 MMOL/L (8-16); BILIRUBIN,TOTAL 0.3 mg/dL (0.2-1); BLOOD UREA NITROGEN 15 mg/dL (7-18); CALCIUM 8.6 mg/dL (8.5-10.1); CHLORIDE 102 mmol/L (98-107); CO2 29 mmol/L (21-32); CREATININE 0.7 mg/dL (0.55-1.3); GLUCOSE,RANDOM 77 mg/dL (74-106); MAGNESIUM 2.2 mg/dL (1.8-2.4); PHOSPHOROUS 3.4 mg/dL (2.5-4.9); SGOT/AST 27 U/L (15-37); SGPT/ALT 45 U/L (13-61); SODIUM 138 mmol/L (136-145); TOT PROT 5.4 g/dl (6.4-8.2)
[2018-09-07 13:25] LABS: BASO % 0.6 % (0-2.0); EOS % 2.8 % (0-4.5); HEMATOCRIT 35.8 % (32.4-45.2); HEMOGLOBIN 11.3 GM/dL (10.7-15.3); LYMPH % 11.3 % (8-40); MCHC 31.6 g/dl (32.0-36.0); MEAN CELL VOLUME 85.5 fl (80-96); MEAN PLT VOLUME 7.6 fl (7.5-11.1); MONO % 6.3 % (3.8-10.2); PLATELET COUNT 407 K/MM3 (134-434); RBC 4.19 M/mm3 (3.60-5.2); RDW 15.8 % (11.6-15.6); WHITE BLOOD COUNT 15.1 K/mm3 (4.0-10.0)
--- NOTE | 2018-09-07 18:27 | PN ---
Progress Note, Physician History of Present Illness: Pt without new issues. No respiratory distress, mild residual cough. Remains afebrile. - Current Medication List Current Medications: Active Medications Acetaminophen (Tylenol -) 650 mg PO Q6H PRN PRN Reason: FEVER Amoxicillin/Clavulanate Potassium (Augmentin - 500mg Tablet) 1 tab PO BID@0800, 1730 [facility] Last Admin: 09/07/18 17:13 Dose: 1 tab Buspirone HCl (Buspar -) 2.5 mg PO DAILY PRN PRN Reason: ANXIETY Docusate Sodium (Colace -) 100 mg PO DAILY [facility] Last Admin: 09/07/18 09:33 Dose: 100 mg Ferrous Sulfate (Feosol -) 325 mg PO BID [facility] Last Admin: 09/07/18 09:33 Dose: 325 mg Heparin Sodium (Porcine) (Heparin -) 5,000 unit SQ BID [facility] Last Admin: 09/07/18 09:33 Dose: 5,000 unit Lactobacillus Acidophilus (Bacid -) 1 tab PO DAILY [facility] Last Admin: 09/07/18 09:33 Dose: 1 tab Levothyroxine Sodium (Synthroid -) 50 mcg PO DAILY@0700 [facility] Last Admin: 09/07/18 06:37 Dose: 50 mcg Quetiapine Fumarate (Seroquel -) 25 mg PO HS [facility] Last Admin: 09/06/18 21:26 Dose: 25 mg Risperidone (Risperdal -) 0.25 mg PO DAILY [facility] Last Admin: 09/07/18 09:35 Dose: 0.25 mg Sertraline HCl (Zoloft -) 100 mg PO DAILY [facility] Last Admin: 09/07/18 09:33 Dose: 100 mg - Objective Vital Signs: Vital Signs Temperature 98 F 09/07/18 10:00 Pulse Rate 73 09/07/18 10:00 Respiratory Rate 20 09/07/18 10:00 Blood Pressure 149/77 09/07/18 10:00 O2 Sat by Pulse Oximetry (%) 97 09/07/18 09:00 Constitutional: Yes: No Distress Cardiovascular: Yes: Regular Rate and Rhythm Respiratory: Yes: Diminished Gastrointestinal: Yes: Normal Bowel Sounds, Soft Integumentary: Yes: WNL Labs: CBC, BMP 09/07/18 06:00 09/07/18 06:00 INR, PTT INR 1.19 (0.83-1.09) H 08/31/18 15:37 Problem List - Problems (1) Pneumonia Code(s): J18.9 - PNEUMONIA, UNSPECIFIED ORGANISM (2) CAD (coronary artery disease) Code(s): I25.10 - ATHSCL HEART DISEASE OF [place] CORONARY ARTERY W/O ANG PCTRS (3) CHF (congestive heart failure) Code(s): I50.9 - HEART FAILURE, UNSPECIFIED (4) Parkinson disease Code(s): G20 - PARKINSON'S DISEASE (5) Seizure disorder Code(s): G40.909 - EPILEPSY, UNSP, NOT INTRACTABLE, WITHOUT STATUS EPILEPTICUS (6) Sepsis Code(s): A41.9 - SEPSIS, UNSPECIFIED ORGANISM Qualifiers: Sepsis type: sepsis due to unspecified organism Qualified Code(s): A41.9 - Sepsis, unspecified organism Assessment/Plan PNA s/p Sepsis CAD CHF Parkinsons -- Pt afebrile, without acute respiratory distress, appears to be clinically improving -- Leukocytosis may be attributable to recent steroids, monitor wbc off steroids -- Switched to oral antibiotics -- Repeat blood cultures negative -- aspiration precautions
[2018-09-07] MEDS: QUEtiapine FUMARATE 25 MG TABLET (FP) PO SCH (21:13)
[2018-09-08] MEDS: LEVOTHYROXINE NA 50 MCG TABLET (FP) PO SCH (06:44)
[2018-09-08 08:15] LABS: MAGNESIUM 2.4 mg/dL (1.8-2.4); PHOSPHOROUS 3.9 mg/dL (2.5-4.9)
[2018-09-08] MEDS: AMOX TR/POT CLAV 500MG/125MG TABLETS (FP) PO SCH ×2 (08:43→17:18)
[2018-09-08 08:51] LABS: BASO % 0.5 % (0-2.0); HEMATOCRIT 38.1 % (32.4-45.2); HEMOGLOBIN 13.3 GM/dL (10.7-15.3); LYMPH % 17.4 % (8-40); MCH 29.5 pg (25.7-33.7); MCHC 34.9 g/dl (32.0-36.0); MEAN CELL VOLUME 84.5 fl (80-96); MEAN PLT VOLUME 7.7 fl (7.5-11.1); MONO % 7.4 % (3.8-10.2); NEUT % 72.7 % (42.8-82.8); PLATELET COUNT 438 K/MM3 (134-434); RBC 4.52 M/mm3 (3.60-5.2); RDW 16.1 % (11.6-15.6); WHITE BLOOD COUNT 13.9 K/mm3 (4.0-10.0)
[2018-09-08] MEDS ORDERED: PT OWN MED DRAWER 7, Y5N ONE (09:54)
[2018-09-08] MEDS: DOCUSATE SODIUM 100 MG CAPSULE (FP) PO SCH (09:58)
[2018-09-08] MEDS: risperiDONE 0.25 MG TABLET (FP) PO SCH (09:58)
[2018-09-08] MEDS: SERTRALINE HCL 50 MG TABLET (FP) PO SCH (09:58)
[2018-09-08] MEDS: FERROUS SO4 325 MG TABLET (FP) PO SCH ×2 (09:58→22:12)
[2018-09-08] MEDS: LACTOBACILLUS ACIDOPHILUS 1 TABLET PO SCH (09:58)
[2018-09-08] MEDS: HEPARIN NA (PORCINE) 5,000 UNITS/ML 1ML VIAL SQ SCH ×2 (09:59→22:12)
--- NOTE | 2018-09-08 10:14 | PN ---
Progress Note (short form) - Note Progress Note: Resting in NAD. Some cough noted. No fevers. Intake & Output 09/05/18 09/06/18 09/07/18 09/08/18 23:59 23:59 23:59 23:59 Intake Total 750 500 450 Balance 750 500 450 Last Vital Signs Temp Pulse Resp BP Pulse Ox 98.6 F 84 20 107/52 L 97 09/08/18 06:00 09/08/18 06:00 09/08/18 06:00 09/08/18 06:00 09/07/18 21:00 Active Medications Acetaminophen (Tylenol -) 650 mg PO Q6H PRN PRN Reason: FEVER Amoxicillin/Clavulanate Potassium (Augmentin - 500mg Tablet) 1 tab PO BID@0800, 1730 [facility] Last Admin: 09/08/18 08:43 Dose: 1 tab Buspirone HCl (Buspar -) 2.5 mg PO DAILY PRN PRN Reason: ANXIETY Docusate Sodium (Colace -) 100 mg PO DAILY [facility] Last Admin: 09/08/18 09:58 Dose: 100 mg Ferrous Sulfate (Feosol -) 325 mg PO BID [facility] Last Admin: 09/08/18 09:58 Dose: 325 mg Heparin Sodium (Porcine) (Heparin -) 5,000 unit SQ BID [facility] Last Admin: 09/08/18 09:59 Dose: 5,000 unit Lactobacillus Acidophilus (Bacid -) 1 tab PO DAILY [facility] Last Admin: 09/08/18 09:58 Dose: 1 tab Levothyroxine Sodium (Synthroid -) 50 mcg PO DAILY@0700 [facility] Last Admin: 09/08/18 06:44 Dose: 50 mcg Quetiapine Fumarate (Seroquel -) 25 mg PO HS [facility] Last Admin: 09/07/18 21:13 Dose: 25 mg Risperidone (Risperdal -) 0.25 mg PO DAILY [facility] Last Admin: 09/08/18 09:58 Dose: 0.25 mg Sertraline HCl (Zoloft -) 100 mg PO DAILY [facility] Last Admin: 09/08/18 09:58 Dose: 100 mg Gen: NAD at rest Heart: RRR Lung: scattered rhonchi Abd: soft, nontender Ext: no edema Laboratory Results - last 24 hr 09/07/18 09/07/18 09/08/18 06:00 06:00 06:00 WBC 15.1 H 13.9 H RBC 4.19 4.52 Hgb 11.3 13.3 Hct 35.8 38.1 MCV 85.5 84.5 MCH 27.0 29.5 MCHC 31.6 L 34.9 RDW 15.8 H 16.1 H Plt Count 407 438 H MPV 7.6 7.7 Absolute Neuts (auto) 12.0 H 10.1 H Neutrophils % 79.0 72.7 Lymphocytes % 11.3 D 17.4 D Monocytes % 6.3 7.4 Eosinophils % 2.8 2.0 Basophils % 0.6 0.5 Nucleated RBC % 0 0 Sodium 138 Potassium 4.0 Chloride 102 Carbon Dioxide 29 Anion Gap 6 L BUN 15 Creatinine 0.7 Creat Clearance w eGFR > 60 Random Glucose 77 Calcium 8.6 Phosphorus 3.4 Magnesium 2.2 Total Bilirubin 0.3 AST 27 ALT 45 Alkaline Phosphatase 99 Total Protein 5.4 L Albumin 2.5 L 09/08/18 06:00 WBC RBC Hgb Hct MCV MCH MCHC RDW Plt Count MPV Absolute Neuts (auto) Neutrophils % Lymphocytes % Monocytes % Eosinophils % Basophils % Nucleated RBC % Sodium Potassium Chloride Carbon Dioxide Anion Gap BUN Creatinine Creat Clearance w eGFR Random Glucose Calcium Phosphorus 3.9 Magnesium 2.4 Total Bilirubin AST ALT Alkaline Phosphatase Total Protein Albumin A/P Pneumonia Sepsis Acute COPD Exacerbation LV Diastolic Dysfunction HTN Hypothyroidism Parkinsons Dementia - Agree with Augmentin - Monitor off systemic steroids - inhaled bronchodilators - O2 to keep Spo2 >90% - aspiration precautions - DVT prophylaxis - D/C planning Dr Bryson Problem List - Problems (1) Pneumonia Code(s): J18.9 - PNEUMONIA, UNSPECIFIED ORGANISM (2) Anemia Code(s): D64.9 - ANEMIA, UNSPECIFIED Qualifiers: Other causes of anemia: other cause, not classified Qualified Code(s): D64.89 - Other specified anemias (3) CAD (coronary artery disease) Code(s): I25.10 - ATHSCL HEART DISEASE OF [place] CORONARY ARTERY W/O ANG PCTRS (4) CHF (congestive heart failure) Code(s): I50.9 - HEART FAILURE, UNSPECIFIED (5) Diverticula of colon Code(s): K57.30 - DVRTCLOS OF LG INT W/O PERFORATION OR ABSCESS W/O BLEEDING (6) Hiatal hernia Code(s): K44.9 - DIAPHRAGMATIC HERNIA WITHOUT OBSTRUCTION OR GANGRENE (7) Hypothyroidism Code(s): E03.9 - HYPOTHYROIDISM, UNSPECIFIED (8) Parkinson disease Code(s): G20 - PARKINSON'S DISEASE (9) Seizure disorder Code(s): G40.909 - EPILEPSY, UNSP, NOT INTRACTABLE, WITHOUT STATUS EPILEPTICUS
--- NOTE | 2018-09-08 12:24 | PN ---
Progress Note, ORAL AND MAXILLOFACIAL SURGERY RESIDENT - Note Progress Note: Selected Entries 09/07/18 09/07/18 09/07/18 06:42 10:00 17:29 Breakfast Supper Temperature 98.5 F 98 F 98.0 F 09/07/18 09/07/18 09/08/18 21:00 22:29 06:00 Breakfast Supper 100% Temperature 98.0 F 98.6 F 09/08/18 09/08/18 08:40 11:28 Breakfast 75% Supper Temperature 98.3 F Laboratory Tests 09/05/18 09/07/18 09/08/18 06:30 06:00 06:00 WBC 16.9 H 15.1 H 13.9 H Medical notes reviewed/pt examined. On full fluids. Tolerating without further vomiting reported. Good appetite. Consider trial of diet upgrade to soft, chopped meat, thin liquid. Ideally OOB for meals and for an hour after meals.
--- NOTE | 2018-09-08 12:32 | PN ---
Progress Note, Physician History of Present Illness: doing well improving still with coughing - Current Medication List Current Medications: Active Medications Acetaminophen (Tylenol -) 650 mg PO Q6H PRN PRN Reason: FEVER Amoxicillin/Clavulanate Potassium (Augmentin - 500mg Tablet) 1 tab PO BID@0800, 1730 [facility] Last Admin: 09/08/18 08:43 Dose: 1 tab Buspirone HCl (Buspar -) 2.5 mg PO DAILY PRN PRN Reason: ANXIETY Docusate Sodium (Colace -) 100 mg PO DAILY [facility] Last Admin: 09/08/18 09:58 Dose: 100 mg Ferrous Sulfate (Feosol -) 325 mg PO BID [facility] Last Admin: 09/08/18 09:58 Dose: 325 mg Heparin Sodium (Porcine) (Heparin -) 5,000 unit SQ BID [facility] Last Admin: 09/08/18 09:59 Dose: 5,000 unit Lactobacillus Acidophilus (Bacid -) 1 tab PO DAILY [facility] Last Admin: 09/08/18 09:58 Dose: 1 tab Levothyroxine Sodium (Synthroid -) 50 mcg PO DAILY@0700 [facility] Last Admin: 09/08/18 06:44 Dose: 50 mcg Quetiapine Fumarate (Seroquel -) 25 mg PO HS [facility] Last Admin: 09/07/18 21:13 Dose: 25 mg Risperidone (Risperdal -) 0.25 mg PO DAILY [facility] Last Admin: 09/08/18 09:58 Dose: 0.25 mg Sertraline HCl (Zoloft -) 100 mg PO DAILY [facility] Last Admin: 09/08/18 09:58 Dose: 100 mg - Objective Vital Signs: Vital Signs Temperature 98.3 F 09/08/18 08:40 Pulse Rate 82 09/08/18 08:40 Respiratory Rate 20 09/08/18 08:40 Blood Pressure 136/65 09/08/18 08:40 O2 Sat by Pulse Oximetry (%) 97 09/07/18 21:00 Constitutional: Yes: No Distress, Calm Cardiovascular: Yes: Regular Rate and Rhythm Respiratory: Yes: Regular, CTA Bilaterally Gastrointestinal: Yes: Normal Bowel Sounds, Soft Musculoskeletal: Yes: WNL Extremities: Yes: Other Neurological: Yes: Alert, Oriented Psychiatric: Yes: Alert, Oriented Labs: CBC, BMP 09/08/18 06:00 09/07/18 06:00 INR, PTT INR 1.19 (0.83-1.09) H 08/31/18 15:37 Assessment/Plan Problem List - Problems (1) Pneumonia Code(s): J18.9 - PNEUMONIA, UNSPECIFIED ORGANISM (2) Anemia Code(s): D64.9 - ANEMIA, UNSPECIFIED Qualifiers: Other causes of anemia: other cause, not classified Qualified Code(s): D64.89 - Other specified anemias (3) CAD (coronary artery disease) Code(s): I25.10 - ATHSCL HEART DISEASE OF [place] CORONARY ARTERY W/O ANG PCTRS (4) CHF (congestive heart failure) Code(s): I50.9 - HEART FAILURE, UNSPECIFIED Qualifiers: Qualified Code(s): I50.9 - Heart failure, unspecified (5) Diverticula of colon Code(s): K57.30 - DVRTCLOS OF LG INT W/O PERFORATION OR ABSCESS W/O BLEEDING (6) Hiatal hernia Code(s): K44.9 - DIAPHRAGMATIC HERNIA WITHOUT OBSTRUCTION OR GANGRENE (7) Hypothyroidism Code(s): E03.9 - HYPOTHYROIDISM, UNSPECIFIED (8) Parkinson disease Code(s): G20 - PARKINSON'S DISEASE (9) Seizure disorder Code(s): G40.909 - EPILEPSY, UNSP, NOT INTRACTABLE, WITHOUT STATUS EPILEPTICUS 10 gm positive bacteremia plan continue oral abx incentive malinda check o2 sat on moving rest as per the team
--- NOTE | 2018-09-08 14:52 | PN ---
Physical Exam: SUBJECTIVE: Patient seen and examined Feels better,also wants to go home as " tired of needles" Otherwise no acute distress. OBJECTIVE: Vital Signs Period Temp Pulse Resp BP Sys/Riggins Pulse Ox Last 24 Hr 98.0 F-98.6 F 82-92 20-20 107-137/52-80 97 GENERAL: The patient is awake, alert, in no acute distress. HEAD: Normal with no signs of trauma. EYES: PERRL, extraocular movements intact, sclera anicteric, conjunctiva clear. No ptosis. ENT: Ears normal, nares patent, oropharynx clear without exudates, moist mucous membranes. NECK: Trachea midline, full range of motion, supple. LUNGS: Breath sounds equal, B/L Crackles, no accessory muscle use. HEART: Regular rate and rhythm, S1, S2 without murmur, rub or gallop. ABDOMEN: Soft, nontender, nondistended, normoactive bowel sounds, no guarding, no rebound, no hepatosplenomegaly, no masses. EXTREMITIES: 2+ pulses, warm, well-perfused, no edema. NEUROLOGICAL: Cranial nerves II through XII grossly intact. Normal speech, gait not observed. AAOX2 Laboratory Results - last 24 hr 09/08/18 09/08/18 06:00 06:00 WBC 13.9 H RBC 4.52 Hgb 13.3 Hct 38.1 MCV 84.5 MCH 29.5 MCHC 34.9 RDW 16.1 H Plt Count 438 H MPV 7.7 Absolute Neuts (auto) 10.1 H Neutrophils % 72.7 Lymphocytes % 17.4 D Monocytes % 7.4 Eosinophils % 2.0 Basophils % 0.5 Nucleated RBC % 0 Phosphorus 3.9 Magnesium 2.4 Active Medications Generic Name Dose Route Start Last Admin Trade Name Freq PRN Reason Stop Dose Admin Acetaminophen 650 mg 08/31/18 18:55 Tylenol - PO Q6H PRN FEVER Amoxicillin/Clavulanate Potassium 1 tab 09/07/18 08:00 09/08/18 08:43 Augmentin - 500mg Tablet PO 1 tab BID@0800,1730 [facility] Administration Buspirone HCl 2.5 mg 08/31/18 18:54 Buspar - PO DAILY PRN ANXIETY Docusate Sodium 100 mg 09/01/18 10:00 09/08/18 09:58 Colace - PO 100 mg DAILY [facility] Administration Ferrous Sulfate 325 mg 08/31/18 22:00 09/08/18 09:58 Feosol - PO 325 mg BID [facility] Administration Heparin Sodium (Porcine) 5,000 unit 09/02/18 22:00 09/08/18 09:59 Heparin - SQ 5,000 unit BID [facility] Administration Lactobacillus Acidophilus 1 tab 09/01/18 10:00 09/08/18 09:58 Bacid - PO 1 tab DAILY [facility] Administration Levothyroxine Sodium 50 mcg 09/01/18 07:00 09/08/18 06:44 Synthroid - PO 50 mcg DAILY@0700 [facility] Administration Quetiapine Fumarate 25 mg 08/31/18 22:00 09/07/18 21:13 Seroquel - PO 25 mg HS [facility] Administration Risperidone 0.25 mg 09/02/18 10:00 09/08/18 09:58 Risperdal - PO 0.25 mg DAILY [facility] Administration Sertraline HCl 100 mg 09/01/18 10:00 09/08/18 09:58 Zoloft - PO 100 mg DAILY [facility] Administration ASSESSMENT/PLAN: terry is an 88 year old female with a significant past medical history of hypothyroidism, Parkinson's, dementia, anemia, ESBL UTIs, diastolic CHF, COPD, HTN and anemia. She presents to the ED with complaints of with 1 week of coughing with worsening chest congestion. Patient lives at home with her sister who noticed that patient's cough and congestion worsened in the last 2 days. Sister took patient's temperature at home and noted it to be 102F. Patient's sister took her to urgent care today. Urgent care advised patient to be taken to the ED further evaluation. # COPD exacerbation 2/2 Sepsis 2/2 PNA S/p IV abx >>> switched to PO abx. Improved clinically. # Chronic HFpEF / HTN/ Parkinson's dementia. stable clinically. C/W current medical mgmt. # Would get her OOB to chair. Would check her functional status. PT/REHAB if indicated for Dispo plan. DVT/GI PPX. Visit type - Emergency Visit Emergency Visit: Yes ED Registration Date: 08/31/18 Care time: The patient presented to the Emergency Department on the above date and was hospitalized for further evaluation of their emergent condition. - New Patient This patient is new to me today: Yes Date on this admission: 09/08/18 - Critical Care Critical Care patient: No - Discharge Referral Referred to [facility] No
[2018-09-08] MEDS: QUEtiapine FUMARATE 25 MG TABLET (FP) PO SCH (22:12)
[2018-09-09] MEDS: LEVOTHYROXINE NA 50 MCG TABLET (FP) PO SCH (06:43)
[2018-09-09] MEDS: AMOX TR/POT CLAV 500MG/125MG TABLETS (FP) PO SCH ×2 (08:42→17:09)
[2018-09-09] MEDS: risperiDONE 0.25 MG TABLET (FP) PO SCH (09:55)
[2018-09-09] MEDS: LACTOBACILLUS ACIDOPHILUS 1 TABLET PO SCH (09:56)
[2018-09-09] MEDS: FERROUS SO4 325 MG TABLET (FP) PO SCH (09:56)
[2018-09-09] MEDS: DOCUSATE SODIUM 100 MG CAPSULE (FP) PO SCH (09:56)
[2018-09-09] MEDS: HEPARIN NA (PORCINE) 5,000 UNITS/ML 1ML VIAL SQ SCH (09:56)
[2018-09-09] MEDS: SERTRALINE HCL 50 MG TABLET (FP) PO SCH (09:56)
--- NOTE | 2018-09-09 10:11 | PN ---
Progress Note (short form) - Note Progress Note: Resting in NAD. Some residual cough. No fevers. Intake & Output 09/06/18 09/07/18 09/08/18 09/09/18 23:59 23:59 23:59 23:59 Intake Total 500 450 260 Balance 500 450 260 Last Vital Signs Temp Pulse Resp BP Pulse Ox 97.7 F 78 20 115/55 L 98 09/09/18 06:48 09/09/18 06:48 09/09/18 06:48 09/09/18 06:48 09/08/18 21:00 Active Medications Acetaminophen (Tylenol -) 650 mg PO Q6H PRN PRN Reason: FEVER Amoxicillin/Clavulanate Potassium (Augmentin - 500mg Tablet) 1 tab PO BID@0800, 1730 [facility] Last Admin: 09/09/18 08:42 Dose: 1 tab Buspirone HCl (Buspar -) 2.5 mg PO DAILY PRN PRN Reason: ANXIETY Docusate Sodium (Colace -) 100 mg PO DAILY [facility] Last Admin: 09/09/18 09:56 Dose: 100 mg Ferrous Sulfate (Feosol -) 325 mg PO BID [facility] Last Admin: 09/09/18 09:56 Dose: 325 mg Heparin Sodium (Porcine) (Heparin -) 5,000 unit SQ BID [facility] Last Admin: 09/09/18 09:56 Dose: 5,000 unit Lactobacillus Acidophilus (Bacid -) 1 tab PO DAILY [facility] Last Admin: 09/09/18 09:56 Dose: 1 tab Levothyroxine Sodium (Synthroid -) 50 mcg PO DAILY@0700 [facility] Last Admin: 09/09/18 06:43 Dose: 50 mcg Quetiapine Fumarate (Seroquel -) 25 mg PO HS [facility] Last Admin: 09/08/18 22:12 Dose: 25 mg Risperidone (Risperdal -) 0.25 mg PO DAILY [facility] Last Admin: 09/09/18 09:55 Dose: 0.25 mg Sertraline HCl (Zoloft -) 100 mg PO DAILY [facility] Last Admin: 09/09/18 09:56 Dose: 100 mg Gen: NAD at rest Heart: RRR Lung: scattered rhonchi Abd: soft, nontender Ext: no edema A/P Pneumonia Sepsis Acute COPD Exacerbation LV Diastolic Dysfunction HTN Hypothyroidism Parkinsons Dementia - Agree with Augmentin - Monitor off systemic steroids - inhaled bronchodilators - O2 to keep Spo2 >90% - aspiration precautions - DVT prophylaxis - D/C planning Dr Bryson Problem List - Problems (1) Pneumonia Code(s): J18.9 - PNEUMONIA, UNSPECIFIED ORGANISM (2) Anemia Code(s): D64.9 - ANEMIA, UNSPECIFIED Qualifiers: Other causes of anemia: other cause, not classified Qualified Code(s): D64.89 - Other specified anemias (3) CAD (coronary artery disease) Code(s): I25.10 - ATHSCL HEART DISEASE OF [place] CORONARY ARTERY W/O ANG PCTRS (4) CHF (congestive heart failure) Code(s): I50.9 - HEART FAILURE, UNSPECIFIED (5) Diverticula of colon Code(s): K57.30 - DVRTCLOS OF LG INT W/O PERFORATION OR ABSCESS W/O BLEEDING (6) Hiatal hernia Code(s): K44.9 - DIAPHRAGMATIC HERNIA WITHOUT OBSTRUCTION OR GANGRENE (7) Hypothyroidism Code(s): E03.9 - HYPOTHYROIDISM, UNSPECIFIED (8) Parkinson disease Code(s): G20 - PARKINSON'S DISEASE (9) Seizure disorder Code(s): G40.909 - EPILEPSY, UNSP, NOT INTRACTABLE, WITHOUT STATUS EPILEPTICUS
--- NOTE | 2018-09-09 11:46 | PN ---
Progress Note, Physician History of Present Illness: patient stable no new issues says she is stuck here breathing well - Current Medication List Current Medications: Active Medications Acetaminophen (Tylenol -) 650 mg PO Q6H PRN PRN Reason: FEVER Amoxicillin/Clavulanate Potassium (Augmentin - 500mg Tablet) 1 tab PO BID@0800, 1730 [facility] Last Admin: 09/09/18 08:42 Dose: 1 tab Buspirone HCl (Buspar -) 2.5 mg PO DAILY PRN PRN Reason: ANXIETY Docusate Sodium (Colace -) 100 mg PO DAILY [facility] Last Admin: 09/09/18 09:56 Dose: 100 mg Ferrous Sulfate (Feosol -) 325 mg PO BID [facility] Last Admin: 09/09/18 09:56 Dose: 325 mg Heparin Sodium (Porcine) (Heparin -) 5,000 unit SQ BID [facility] Last Admin: 09/09/18 09:56 Dose: 5,000 unit Lactobacillus Acidophilus (Bacid -) 1 tab PO DAILY [facility] Last Admin: 09/09/18 09:56 Dose: 1 tab Levothyroxine Sodium (Synthroid -) 50 mcg PO DAILY@0700 [facility] Last Admin: 09/09/18 06:43 Dose: 50 mcg Quetiapine Fumarate (Seroquel -) 25 mg PO HS [facility] Last Admin: 09/08/18 22:12 Dose: 25 mg Risperidone (Risperdal -) 0.25 mg PO DAILY [facility] Last Admin: 09/09/18 09:55 Dose: 0.25 mg Sertraline HCl (Zoloft -) 100 mg PO DAILY [facility] Last Admin: 09/09/18 09:56 Dose: 100 mg - Objective Vital Signs: Vital Signs Temperature 97.7 F 09/09/18 06:48 Pulse Rate 78 09/09/18 06:48 Respiratory Rate 20 09/09/18 06:48 Blood Pressure 115/55 L 09/09/18 06:48 O2 Sat by Pulse Oximetry (%) 98 09/08/18 21:00 Constitutional: Yes: No Distress, Calm, Thin Cardiovascular: Yes: Regular Rate and Rhythm Respiratory: Yes: Regular, CTA Bilaterally, Other Gastrointestinal: Yes: Normal Bowel Sounds, Soft Musculoskeletal: Yes: WNL Extremities: Yes: Other Neurological: Yes: Alert, Oriented Psychiatric: Yes: Alert, Oriented Labs: CBC, BMP 09/08/18 06:00 01/06/19 06:00 INR, PTT INR 1.19 (0.83-1.09) H 08/31/18 15:37 Assessment/Plan Problem List - Problems (1) Pneumonia Code(s): J18.9 - PNEUMONIA, UNSPECIFIED ORGANISM (2) Anemia Code(s): D64.9 - ANEMIA, UNSPECIFIED Qualifiers: Other causes of anemia: other cause, not classified Qualified Code(s): D64.89 - Other specified anemias (3) CAD (coronary artery disease) Code(s): I25.10 - ATHSCL HEART DISEASE OF [place] CORONARY ARTERY W/O ANG PCTRS (4) CHF (congestive heart failure) Code(s): I50.9 - HEART FAILURE, UNSPECIFIED Qualifiers: Qualified Code(s): I50.9 - Heart failure, unspecified (5) Diverticula of colon Code(s): K57.30 - DVRTCLOS OF LG INT W/O PERFORATION OR ABSCESS W/O BLEEDING (6) Hiatal hernia Code(s): K44.9 - DIAPHRAGMATIC HERNIA WITHOUT OBSTRUCTION OR GANGRENE (7) Hypothyroidism Code(s): E03.9 - HYPOTHYROIDISM, UNSPECIFIED (8) Parkinson disease Code(s): G20 - PARKINSON'S DISEASE (9) Seizure disorder Code(s): G40.909 - EPILEPSY, UNSP, NOT INTRACTABLE, WITHOUT STATUS EPILEPTICUS 10 gm positive bacteremia plan continue oral abx incentive malinda check o2 sat on moving rest as per the team patient has sputum positive for mssa please give oral abx for another 12 days
[2018-09-09 14:33] VITALS: BP 105/65; TEMP 98.4
--- NOTE | 2018-09-09 15:17 | PN ---
Physical Exam: SUBJECTIVE: Patient seen and examined at the bedside. OBJECTIVE: advance diet to soft diet/regular nectar thickened fluids added, has fine crackles on right lung, suspect she may be aspirating, best if she stays on honey thickened fluids. overall improved since admission oxygen pre and post stable, no need for home oxygen chest xray reviewed patient's sister and HCP refusing SNF placement for rehab, refusing ambulette to help her up the stairs at home once she arrives there (has 12 steps) Sister arranging for family to be there tomorrow to help patient up stairs. patient has private aides and is seen by a doctor who sees her at home Vital Signs Period Temp Pulse Resp BP Sys/Riggins Pulse Ox Last 24 Hr 97.6 F-98.4 F 78-101 18-20 105-134/54-72 98 GENERAL: The patient is awake, alert, with episodes of confusion and forgetfullness. HEAD: Normal with no signs of trauma. EYES: PERRL, extraocular movements intact, sclera anicteric, conjunctiva clear. No ptosis. ENT: Ears normal, nares patent, oropharynx clear without exudates, moist mucous membranes. NECK: Trachea midline, full range of motion, supple. LUNGS: crackles auscultated on right lung field, chest xray reviewed. HEART: Regular rate and rhythm, S1, S2 without murmur, rub or gallop. ABDOMEN: Soft, nontender, nondistended, normoactive bowel sounds, no guarding EXTREMITIES: 2+ pulses, warm, well-perfused, no edema. NEUROLOGICAL: Normal speech, mild conversational dyspnea PSYCH: Normal mood, normal affect. SKIN: Warm, dry, normal turgor, no rashes or lesions noted Active Medications Generic Name Dose Route Start Last Admin Trade Name Freq PRN Reason Stop Dose Admin Acetaminophen 650 mg 08/31/18 18:55 09/09/18 12:51 Tylenol - PO 650 mg Q6H PRN Administration FEVER Amoxicillin/Clavulanate Potassium 1 tab 09/07/18 08:00 09/09/18 08:42 Augmentin - 500mg Tablet PO 1 tab BID@0800,1730 M[facility] Administration Buspirone HCl 2.5 mg 08/31/18 18:54 Buspar - PO DAILY PRN ANXIETY Docusate Sodium 100 mg 09/01/18 10:00 01/08/19 09:56 Colace - PO 100 mg DAILY [facility] Administration Ferrous Sulfate 325 mg 08/31/18 22:00 09/09/18 09:56 Feosol - PO 325 mg BID [facility] Administration Heparin Sodium (Porcine) 5,000 unit 09/02/18 22:00 09/09/18 09:56 Heparin - SQ 5,000 unit BID [facility] Administration Lactobacillus Acidophilus 1 tab 09/01/18 10:00 09/09/18 09:56 Bacid - PO 1 tab DAILY [facility] Administration Levothyroxine Sodium 50 mcg 09/01/18 07:00 09/09/18 06:43 Synthroid - PO 50 mcg DAILY@0700 [facility] Administration Quetiapine Fumarate 25 mg 08/31/18 22:00 09/08/18 22:12 Seroquel - PO 25 mg HS [facility] Administration Risperidone 0.25 mg 09/02/18 10:00 09/09/18 09:55 Risperdal - PO 0.25 mg DAILY [facility] Administration Sertraline HCl 100 mg 09/01/18 10:00 09/09/18 09:56 Zoloft - PO 100 mg DAILY [facility] Administration ASSESSMENT/PLAN: Patient is an 88 year old female with a significant past medical history of hypothyroidism, Parkinson's, dementia, anemia, ESBL UTIs, diastolic CHF, COPD, HTN and anemia. She presents to the ED with complaints of with 1 week of coughing with worsening chest congestion. Patient lives at home with her sister who noticed that patient's cough and congestion worsened in the last 2 days. Sister took patient's temperature at home and noted it to be 102F. Patient's sister took her to urgent care who care advised patient to be taken to the ED further evaluation. Pulm: COPD exacerbation 2/2 Sepsis pneumonia, improved. Possible aspiration pneumonia s/p Iv antibiotics, now on Augmentin since 09/07/18 clinically improved Does not qualify for home oxygen. pre and post stable. Card: Chronic HF / HTN/ Parkinson's dementia. stable clinically. C/W current medical mgmt. fen tolerating po monitor electrolytes soft diet, continune nectar thickened fluids discharge home tomorrow. unsafe to do so today as patient's sister is refusing SNF and ambulette. family member (nephew) will be home tomorow to carry patient up the stairs. full code Visit type - Emergency Visit Emergency Visit: Yes ED Registration Date: 08/31/18 Care time: The patient presented to the Emergency Department on the above date and was hospitalized for further evaluation of their emergent condition. - New Patient This patient is new to me today: No - Critical Care Critical Care patient: No - Discharge Referral Referred to [facility] No
[2018-09-09 15:42] VITALS: PULSE 108
--- NOTE | 2018-09-09 16:01 | DS ---
Physical Exam: SUBJECTIVE: Patient seen and examined OBJECTIVE: Patient's sister made arrangements to have family transport patient up the stairs in her home. Discussed safety with sister who is adamant about not having an ambulette or rehab. Vital Signs Period Temp Pulse Resp BP Sys/Riggins Pulse Ox Last 24 Hr 97.6 F-98.4 F 78-108 18-20 105-134/54-72 90-98 PHYSICAL EXAM GENERAL: The patient is awake, alert, with episodes of confusion and forgetfullness. HEAD: Normal with no signs of trauma. EYES: PERRL, extraocular movements intact, sclera anicteric, conjunctiva clear. No ptosis. ENT: Ears normal, nares patent, oropharynx clear without exudates, moist mucous membranes. NECK: Trachea midline, full range of motion, supple. LUNGS: crackles auscultated on right lung field, chest xray reviewed. HEART: Regular rate and rhythm, S1, S2 without murmur, rub or gallop. ABDOMEN: Soft, nontender, nondistended, normoactive bowel sounds, no guarding EXTREMITIES: 2+ pulses, warm, well-perfused, no edema. NEUROLOGICAL: Normal speech, mild conversational dyspnea PSYCH: Normal mood, normal affect. SKIN: Warm, dry, normal turgor, no rashes or lesions noted LABS HOSPITAL COURSE: Patient is an 88 year old female with a significant past medical history of hypothyroidism, Parkinson's, dementia, anemia, ESBL UTIs, diastolic CHF, COPD, HTN and anemia. She presents to the ED with complaints of with 1 week of coughing with worsening chest congestion. Patient lives at home with her sister who noticed that patient's cough and congestion worsened in the last 2 days. Sister took patient's temperature at home and noted it to be 102F. Patient's sister took her to urgent care who care advised patient to be taken to the ED further evaluation. Pulm: COPD exacerbation 2/2 Sepsis pneumonia, improved. Possible aspiration pneumonia s/p Iv antibiotics, now on Augmentin since 09/07/18 - to continue for another 12 days per ID physician clinically improved Does not qualify for home oxygen. pre and post stable. Card: Chronic HF / HTN/ Parkinson's dementia. stable clinically. C/W current medical mgmt. discharge home. sister arranged for family member (nephew) will be home today to carry patient up the stairs. discussed safety with patient and that is best for her to go home on an ambulance, she is refusing. Date of Admission:08/31/18 Date of Discharge: 09/09/18 Minutes to complete discharge: 60 Discharge Summary Reason For Visit: PNEUMONIA Current Active Problems Anxiety and depression (Acute) Dysphagia (Acute) Pneumonia (Acute) Condition: Improved - Instructions Diet, Activity, Other Instructions: Mrs Baker: You were admitted with bilateral pneumonia. Please continue the antibiotics ( Augmentin 500mg-twice daily) for another 12 days (you will complete them on September 21). Please follow up with [facility] for follow up blood work outpatient. Here are our recommendations: Pneumonia-both lungs Please continue the Augmentin 500mg twice per day for another 12 days total. This medication is twice per day at 8am and 5pm. Please take it with the probiotic (Bacid). You will need to follow up with your primary care doctor. I have referred one for you if you do not have one currently. You can also go back to [facility]. Please continue a soft diet with NECTAR thickened fluids. Sit up right when eating and drinking. Do not eat within 2 hours before going to bed. We recommend that yo have meals in a chair and not in bed. nectar thickened fluids added, has fine crackles on right lung, suspect she may be aspirating, best if she stays on honey thickened fluids. Please call me with any questions that you may have. [facility] [phone] Referrals: Zeke Quintana MD [Staff Physician] - 1 Week (log inspector) Disposition: HOME - Home Medications Comprehensive Discharge Medication List: Ambulatory Orders Levothyroxine [Synthroid -] 50 mcg PO DAILY 08/18/15 Buspirone HCl [Buspar -] 2.5 mg PO DAILY PRN 05/09/18 Risperidone [Risperdal -] 0.25 mg PO BID 05/09/18 Sertraline HCl [Zoloft] 100 mg PO DAILY 05/23/18 Docusate Sodium 100 mg PO PRN 08/31/18 Ferrous Sulfate 325 mg PO BID 08/31/18 Lactobacillus Acidophilus [Bacid -] 1 tab PO DAILY 08/31/18 Quetiapine Fumarate [Seroquel -] 25 mg PO HS 08/31/18 Sennosides [Senna] 17.2 mg PO PRN 08/31/18 This patient is new to me today: No Emergency Visit: Yes ED Registration Date: 08/31/18 Care time: The patient presented to the Emergency Department on the above date and was hospitalized for further evaluation of their emergent condition. Critical Care patient: No - Discharge Referral Referred to [facility] No
== END 2018-09-09 17:31 | disposition home or self-care (01) | DRG 871 ==
LOC: JER 14:51 → JERBED 17:41 → J8W 09-02 00:05
PROVIDERS: ADMIT Internal Medicine; ATTEND Nurse Practitioner Family
DX: A41.9 Sepsis, unspecified organism (principal); E43 Unspecified severe protein-calorie malnutrition; J69.0 Pneumonitis due to inhalation of food and vomit; R64 Cachexia; Z68.1 Body mass index [BMI] 19.9 or less, adult; I50.32 Chronic diastolic (congestive) heart failure; J44.1 Chronic obstructive pulmonary disease with (acute) exacerbation; G20 Parkinson's disease; F03.90 Unspecified dementia, unspecified severity, without behavioral disturbance, psychotic disturbance, mood disturbance, and anxiety; I11.0 Hypertensive heart disease with heart failure; F41.8 Other specified anxiety disorders; R13.10 Dysphagia, unspecified; D64.9 Anemia, unspecified; I25.10 Atherosclerotic heart disease of native coronary artery without angina pectoris; E03.9 Hypothyroidism, unspecified
CPT/HCPCS: 36415; 71045-TC-FY; 74230-TC-FY; 80048; 80053; 82803; 83605; 83735; 83880; 84100; 84484; 85025; 85027; 85610; 85651; 85730; 87040; 87070; 87186; 87205; 87804; 87899; 92611-GN; 93005; 93010; 94640; 94761; 97116-GP; 97161-GP; 99285-25; J0131; J1644

== ENCOUNTER 2018-09-12 12:18 | Inpatient (IN) | payer OTHER, MEDICARE ==
--- NOTE | 2018-09-12 12:39 | PDOC ---
History of Present Illness - General Stated Complaint: Weakness Time Seen by Provider: 09/12/18 12:33 - History of Present Illness Initial Comments: 09/12/18 12:39 88 year old man with a history of hypothyroidism, Parkinson's, dementia, anemia , history urinary tract infections, CHF, COPD, HTN who presents with discharged 2 days ago for pneumonia and chf exacerbation remains weak coughing yellow phlegm and since being on augmentin outpatient developing diffuse erythematous macular rash along front and back of torso and medial aspect of thighs. decreased po intake for one day one episode of dark stool patient lives w/ sister and has nursing come 4 times a week. at bedside satting > 95% on 2L NC, however did not require oxygen prior to hospitalization. 09/12/18 13:29 Past History - Past Medical History Allergies/Adverse Reactions: Allergies Allergy/AdvReac Type Severity Reaction Status Date / Time No Known Drug Allergies Allergy Verified 09/12/18 12:39 Home Medications: Ambulatory Orders Levothyroxine [Synthroid -] 50 mcg PO DAILY 08/18/15 Buspirone HCl [Buspar -] 2.5 mg PO DAILY PRN 05/09/18 Risperidone [Risperdal -] 0.25 mg PO BID 05/09/18 Sertraline HCl [Zoloft] 100 mg PO DAILY 05/23/18 Docusate Sodium 100 mg PO PRN 08/31/18 Ferrous Sulfate 325 mg PO BID 08/31/18 Lactobacillus Acidophilus [Bacid -] 1 tab PO DAILY 08/31/18 Quetiapine Fumarate [Seroquel -] 25 mg PO HS 08/31/18 Sennosides [Senna] 17.2 mg PO PRN 08/31/18 Amox-Tr/K Cl [Augmentin 500-125mg Tablet -] 1 tab PO BID@0800,1730 tablet 09/09 Amoxicillin/Potassium Clav [Augmentin 500-125 Tablet] 1 each PO BID #24 tablet 09/09/18 Anemia: No Asthma: No Cancer: Yes (Adenoma) Cardiac Disorders: Yes CVA: No COPD: No CHF: Yes Dementia: Yes Diabetes: No GI Disorders: Yes (hiatal hernia) Disorders: Yes (urinary incontinence) HTN: Yes Hypercholesterolemia: No Liver Disease: No Psychiatric Problems: Yes Seizures: Yes (MANIC DEPRESSION) Thyroid Disease: Yes - Surgical History Abdominal Surgery: Yes Appendectomy: No Cardiac Surgery: No Cholecystectomy: Yes Lung Surgery: No Neurologic Surgery: No Orthopedic Surgery: No - Immunization History Immunization Up to Date: Yes - Suicide/Smoking/Psychosocial Hx Smoking Status: No Smoking History: Never smoked Have you smoked in the past 12 months: No Number of Cigarettes Smoked Daily: 0 If you are a former smoker, when did you quit?: Over 40 years ago Cigars Per Day: 0 Hx Alcohol Use: No Drug/Substance Use Hx: No Substance Use Type: None Hx Substance Use Treatment: No *Physical Exam - Physical Exam Comments: 09/12/18 12:56 red macular rash on torso and inner thighs dark green filament on tongue nonscrapable coarse breath sounds thtoughout, obscured by moaning with ausculatiation weak appearing kyphotic 09/12/18 13:49 ED Treatment Course - LABORATORY CBC & Chemistry Diagram: 09/12/18 12:35 09/12/18 12:40 - RADIOLOGY Radiology Studies Ordered: Category Date Time Status CHEST X-RAY PORTABLE* [RAD] Stat Radiology 09/12/18 12:36 Ordered Medical Decision Making - Medical Decision Making 09/12/18 12:57 ED Course: consider chf sxacerbation vs COPD exacerbation unresolved pneumonia allergy to augmentin *DC/Admit/Observation/Transfer Diagnosis at time of Disposition: CHF (congestive heart failure), Pneumonia - Discharge Dispostion Condition at time of disposition: Stable Decision to Admit order: Yes - Referrals Referrals: Rivera Montes De Oca MD [Primary Care Provider] - - Patient Instructions - Post Discharge Activity
[2018-09-12] MEDS ORDERED: ACETAMINOPHEN 1000 MG/100 ML VIAL (NON FORMULARY) IVPB ONE (13:07)
[2018-09-12] MEDS ORDERED: SODIUM CHLORIDE 250 ML IV SCH (13:15)
[2018-09-12] MEDS ORDERED: ACETAMINOPHEN INJECTION 100 ML IVPB ONE (13:22)
[2018-09-12 13:27] LABS: BASO % 0.5 % (0-2.0); HEMATOCRIT 40.4 % (32.4-45.2); HEMOGLOBIN 13.6 GM/dL (10.7-15.3); LYMPH % 10.6 % (8-40); MCH 28.6 pg (25.7-33.7); MCHC 33.6 g/dl (32.0-36.0); MEAN CELL VOLUME 85.1 fl (80-96); MEAN PLT VOLUME 7.6 fl (7.5-11.1); MONO % 6.4 % (3.8-10.2); NEUT % 81.5 % (42.8-82.8); PLATELET COUNT 457 K/MM3 (134-434); RBC 4.74 M/mm3 (3.60-5.2); RDW 16.3 % (11.6-15.6); WHITE BLOOD COUNT 26.2 K/mm3 (4.0-10.0)
--- NOTE | 2018-09-12 13:31 | PDOC ---
Attending Attestation - Resident Resident Name: Jocelyn Barnett - ED Attending Attestation I have performed the following: I have examined & evaluated the patient, The case was reviewed & discussed with the resident, I agree w/resident's findings & plan, Exceptions are as noted - HPI HPI: 09/12/18 14:06 Ms Baker is a 88 yo F h/o hypothyroidism, Parkinson's, dementia, anemia, history urinary tract infections, CHF, COPD, HTN who presents with her sisters due to weakness and rash. Pt was apparently recently discharged s/p treatment for pneumonia Since discharge, pt has been weak, decreased po intake (today, pt has not eaten anything) No fevers Pt has been noted to have a rash which began on her buttocks and has spread to torso and legs Pt denies pain at this point No diarrhea Prior to recent illness pt had been ambulatory and able to feed herself 09/12/18 15:37 - Physicial Exam PE: 09/12/18 15:40 Weak appearing Awake, hard of hearing answers questions appropriately RRR CTA No abdominal tenderness Rash noted diffusely on chest, arms, upper thighs No lower extremity edema - Medical Decision Making 09/12/18 13:34 NSR rate of 87 bpm, LAD, LVH, no ST elevation or depression, T waves upright 09/12/18 15:36 Laboratory Tests 09/12/18 09/12/18 09/12/18 12:35 12:40 12:40 WBC 26.2 H Hgb 13.6 Hct 40.4 Plt Count 457 H Neutrophils % (Manual) 79.0 Band Neutrophils % 0.0 Lymphocytes % 10.6 D Sodium 135 L Potassium 3.9 Chloride 102 Carbon Dioxide 25 BUN 13 Creatinine 0.8 Random Glucose 97 Troponin I < 0.02 B-Natriuretic Peptide 186.2 TSH 3.89 H Stool Occult Blood 09/12/18 13:46 WBC Hgb Hct Plt Count Neutrophils % (Manual) Band Neutrophils % Lymphocytes % Sodium Potassium Chloride Carbon Dioxide BUN Creatinine Random Glucose Troponin I B-Natriuretic Peptide TSH Stool Occult Blood Negative CXR Right middle lobe infiltrate 09/12/18 15:[address] Anglin 09/12/18 15:[address] rodriguez He is present in the ER to see this patient and make antibiotic recommendations in light of her new reaction to penicillins 09/12/18 15:43
[2018-09-12 14:05] LABS: ALBUMIN 2.9 g/dl (3.4-5.0); ALK PHOS 102 U/L (45-117); ANION GAP 9 MMOL/L (8-16); BILIRUBIN,TOTAL 0.3 mg/dL (0.2-1); BLOOD UREA NITROGEN 13 mg/dL (7-18); CALCIUM 9.2 mg/dL (8.5-10.1); CHLORIDE 102 mmol/L (98-107); CO2 25 mmol/L (21-32); CREATININE 0.8 mg/dL (0.55-1.3); GLUCOSE,RANDOM 97 mg/dL (74-106); POTASSIUM 3.9 mmol/L (3.5-5.1); SGOT/AST 13 U/L (15-37); SGPT/ALT 20 U/L (13-61); SODIUM 135 mmol/L (136-145); TOT PROT 6.1 g/dl (6.4-8.2)
[2018-09-12 14:29] LABS: ACANTHOCYTES 0; ANISOCYTOSIS 0; HELMET CELLS 0; HOWELL-JOLLY BODIES 0; MACROCYTOSIS 0; OVALOCYTE 0; PLATELET ESTIMATE NORMAL; ROULEAU 0; SICKELED CELLS 0; TARGET CELLS 0; TEAR DROP CELLS 0; TOXIC GRANULATION 0
[2018-09-12] MEDS ORDERED: methylPREDNISolone NA SUCC 40 MG/1 ML VIAL IVPUSH ONE (15:22)
[2018-09-12] MEDS ORDERED: ACETAMINOPHEN 325 MG TABLET (FP) PO PRN (15:23)
[2018-09-12] MEDS ORDERED: SODIUM CHLORIDE 1,000 ML IV SCH (15:30)
--- NOTE | 2018-09-12 15:37 | HP ---
CHIEF COMPLAINT: diffused pink rash, dark bowel movement PCP: [facility] educ[facility] HISTORY OF PRESENT ILLNESS: Patient is an 88 year old female with a significant past medical history of hypothyroidism, Parkinson's, dementia, anemia, ESBL UTIs, diastolic CHF, COPD, HTN and anemia. She presents to the ED with complaints of a diffused pink generalized rash that erupted yesterday after taking Augmentin for pneumonia Patient has dementia and her sister provided most of the history. Sister reports that after being discharge at [facility] 2 days ago, she noticed that patient continued to be weak with a non productive cough. She continued to give her the Augmentin as prescribed and then today noticed that she developed a generalized rash that covered most of her body. She also reports that her sister had a black bowel movement today. Patient recently at [facility] from 08/31/18 to 09/09/18 for pneumonia and while admitted was treated with Zosyn IV. She was converted to Augmentin on 09/07/18. She was sent home and continued to take the antibiotics. When her sister noted the rash she was brought into the ED for further evaluation. ER course was notable for: (1) generalized pink raised drug rash on her back, buttocks, inner thighs, chest and stomach. (2) hmg/hct 13/40 (3) chest ct with moderate to large hiatal hernia. esophagitis. extensive bilateral chronic lung disease Recent Travel: none PAST MEDICAL HISTORY: PAST SURGICAL HISTORY: Social History: Smoking: none Alcohol: none Drugs: none Family History: Allergies No Known Drug Allergies Allergy (Verified 09/12/18 12:39) HOME MEDICATIONS: Home Medications Medication Instructions Recorded Levothyroxine [Synthroid -] 50 mcg PO DAILY 08/18/15 Buspirone HCl [Buspar -] 2.5 mg PO DAILY PRN 05/09/18 Risperidone [Risperdal -] 0.25 mg PO BID 05/09/18 Sertraline HCl [Zoloft] 100 mg PO DAILY 05/23/18 Docusate Sodium 100 mg PO PRN 08/31/18 Ferrous Sulfate 325 mg PO BID 08/31/18 Lactobacillus Acidophilus [Bacid -] 1 tab PO DAILY 08/31/18 Quetiapine Fumarate [Seroquel -] 25 mg PO HS 08/31/18 Sennosides [Senna] 17.2 mg PO PRN 08/31/18 Amox-Tr/K Cl [Augmentin 500-125mg 1 tab PO BID@0800,1730 tablet 09/09/18 Tablet -] Amoxicillin/Potassium Clav 1 each PO BID #24 tablet 09/09/18 [Augmentin 500-125 Tablet] REVIEW OF SYSTEMS patient unable to participate 2/2 to dementia PHYSICAL EXAMINATION Vital Signs - 24 hr 09/12/18 12:29 Temperature 99.2 F Pulse Rate 97 H Respiratory 16 Rate Blood Pressure 133/72 O2 Sat by Pulse 98 Oximetry (%) GENERAL: Awake, alert with history of dementia. her sister provides the history HEAD: Normal with no signs of trauma. EYES: Pupils equal, round and reactive to light, extraocular movements intact, sclera anicteric, conjunctiva clear. No lid lag. EARS, NOSE, THROAT: Ears normal, nares patent, oropharynx clear without exudates. Moist mucous membranes. NECK: Normal range of motion, supple without lymphadenopathy, JVD, or masses. LUNGS: crackles on upper and lobes of the right lung. left lung diminished. HEART: Regular rate and rhythm ABDOMEN: Soft, nontender, mildly distended, normoactive bowel sounds, no guarding, no rebound, no masses. MUSCULOSKELETAL: Normal range of motion at all joints. No bony deformities or tenderness. No CVA tenderness. UPPER EXTREMITIES: 2+ pulses, warm, well-perfused. No cyanosis. No clubbing. No peripheral edema. LOWER EXTREMITIES: 2+ pulses, warm, well-perfused. No calf tenderness. No peripheral edema. NEUROLOGICAL: clear speech, facial symmetry PSYCHIATRIC: Cooperative. Good eye contact. Appropriate mood and affect. SKIN: erythematous macular rash along front and back of torso and medial aspect of thighs. Laboratory Results - last 24 hr 09/12/18 09/12/18 09/12/18 12:35 12:40 12:40 WBC 26.2 H RBC 4.74 Hgb 13.6 Hct 40.4 MCV 85.1 MCH 28.6 MCHC 33.6 RDW 16.3 H Plt Count 457 H MPV 7.6 Absolute Neuts (auto) 21.4 H Neutrophils % 81.5 Neutrophils % (Manual) 79.0 Band Neutrophils % 0.0 Lymphocytes % 10.6 D Lymphocytes % (Manual) 15.0 D Monocytes % 6.4 Monocytes % (Manual) 6 Eosinophils % 1.0 Eosinophils % (Manual) 0.0 D Basophils % 0.5 Basophils % (Manual) 0.0 Myelocytes % (Man) 0 Promyelocytes % (Man) 0 Blast Cells % (Manual) 0 Nucleated RBC % 0 Metamyelocytes 0 Hypochromia 0 Toxic Granulation 0 Dohle Bodies 0 Platelet Estimate Normal Polychromasia 0 Poikilocytosis 0 Basophilic Stippling 0 Anisocytosis 0 Microcytosis 0 Macrocytosis 0 Spherocytes 0 Sickle Cells 0 Target Cells 0 Tear Drop Cells 0 Ovalocytes 0 Stomatocytes 0 Helmet Cells 0 [place] Bodies 0 [place] Rings 0 [place] Cells 0 Acanthocytes (Spur) 0 Rouleaux 0 Fragmented RBCs 0 Schistocytes 0 Sodium 135 L Potassium 3.9 Chloride 102 Carbon Dioxide 25 Anion Gap 9 BUN 13 Creatinine 0.8 Creat Clearance w eGFR > 60 Random Glucose 97 Calcium 9.2 Total Bilirubin 0.3 AST 13 L ALT 20 Alkaline Phosphatase 102 Troponin I < 0.02 B-Natriuretic Peptide 186.2 Total Protein 6.1 L Albumin 2.9 L TSH 3.89 H Stool Occult Blood 09/12/18 13:46 WBC RBC Hgb Hct MCV MCH MCHC RDW Plt Count MPV Absolute Neuts (auto) Neutrophils % Neutrophils % (Manual) Band Neutrophils % Lymphocytes % Lymphocytes % (Manual) Monocytes % Monocytes % (Manual) Eosinophils % Eosinophils % (Manual) Basophils % Basophils % (Manual) Myelocytes % (Man) Promyelocytes % (Man) Blast Cells % (Manual) Nucleated RBC % Metamyelocytes Hypochromia Toxic Granulation Dohle Bodies Platelet Estimate Polychromasia Poikilocytosis Basophilic Stippling Anisocytosis Microcytosis Macrocytosis Spherocytes Sickle Cells Target Cells Tear Drop Cells Ovalocytes Stomatocytes Helmet Cells [place] Bodies [place] Rings [place] Cells Acanthocytes (Spur) Rouleaux Fragmented RBCs Schistocytes Sodium Potassium Chloride Carbon Dioxide Anion Gap BUN Creatinine Creat Clearance w eGFR Random Glucose Calcium Total Bilirubin AST ALT Alkaline Phosphatase Troponin I B-Natriuretic Peptide Total Protein Albumin TSH Stool Occult Blood Negative ASSESSMENT/PLAN: Patient is an 88 year old female with a significant past medical history of hypothyroidism, Parkinson's, dementia, anemia, ESBL UTIs, diastolic CHF, COPD, HTN and anemia. She presents to the ED with complaints of a diffused pink generalized rash that erupted yesterday after taking Augmentin for pneumonia Patient has dementia and her sister provided most of the history. Sister reports that after being discharge at [facility] 2 days ago, she noticed that patient continued to be weak with a non productive cough. She continued to give her the Augmentin as prescribed and then today noticed that she developed a generalized rash that covered most of her body. She also reports that her sister had a black bowel movement today. --------- Problem list Bilateral pneumonia Esophagitis Large hiatal hernia Dementia Chronic diastolic HF Hypertension Parkinsons disease Drug Rash Hypothyroidism ESBL UTIs Diastolic CHF COPD Anemia Integumentary * skin rash, secondary to augmentin. drug allergy added to emar. give solumedrol 60mg x 1. No wheezing but has crackles on her right lung. Will add duonebs, and monitor any wheezing. * benadryl and hydrocortisone Pneumonia * Patient was treated for zosyn on previous admission. Chest CTA with extensive bilateal chronic lung disease. Will give one dose of Levaquin and monitor. ID and pulmonary consulted for further recommendations. * COPD. start on duonebs. Hiatal Hernia/Esophagitis * started on full liquid diet. PPI and antacid. Surgical evaluation appreciated. Chronic diastolic HF * Monitor intake and output, avoid fluid overload. monitor. Parkinsons disease * Patient was weaned off Parkinsons medications by her primary care provider. Rule out GI bleed * stool occult negative. hmg/hct stabe. protonix bid. Hypertension * stable. monitor. Hypothyroidsm * continue Synthroid. ESBL UTIs, history * ua/uc ordered. fen gentle hydration monitor electrolytes full liquid, honey thick fluids prophy SCDs protonix bid Visit type - Emergency Visit Emergency Visit: Yes ED Registration Date: 09/12/18 Care time: The patient presented to the Emergency Department on the above date and was hospitalized for further evaluation of their emergent condition. - New Patient This patient is new to me today: No - Critical Care Critical Care patient: No
--- NOTE | 2018-09-12 15:53 | EKG ---
Test Reason : Blood Pressure : / mmHG Vent. Rate : 087 BPM Atrial Rate : 087 BPM P-R Int : 146 ms QRS Dur : 080 ms QT Int : 386 ms P-R-T Axes : 045 -36 014 degrees QTc Int : 464 ms POOR DATA QUALITY, INTERPRETATION MAY BE ADVERSELY AFFECTED NORMAL SINUS RHYTHM LEFT AXIS DEVIATION VOLTAGE CRITERIA FOR LEFT VENTRICULAR HYPERTROPHY ABNORMAL ECG WHEN COMPARED WITH ECG OF 31-AUG-2018 15:41, NO SIGNIFICANT CHANGE WAS FOUND Confirmed by SAYRA SINGH, YIFAN ([id number]) on 09/12/2018 3:53:17 PM Referred By: Confirmed By:YIFAN COLBERT MD
[2018-09-12] MEDS ORDERED: methylPREDNISolone NA SUCC 40 MG/1 ML VIAL ONE (16:39)
[2018-09-12 17:46] LABS: URINE APPEARANCE CLEAR; URINE BILIRUBIN NEGATIVE (<2.0 mg/dL); URINE COLOR YELLOW; URINE GLUCOSE (UA) NEGATIVE (NEGATIVE); URINE KETONE NEGATIVE (NEGATIVE); URINE LEUK ESTERASE NEGATIVE (NEGATIVE); URINE NITRITE NEGATIVE (NEGATIVE); URINE PROTEIN NEGATIVE (NEGATIVE); URINE UROBILINOGEN NEGATIVE mg/dL (0.2-1.0)
[2018-09-12] MEDS ORDERED: DOCUSATE SODIUM 100 MG CAPSULE (FP) PO PRN (20:30)
[2018-09-12] MEDS ORDERED: busPIRone HCL 5 MG TABLET PO PRN (20:30)
[2018-09-12] MEDS ORDERED: ALBUTEROL SO4 2.5/IPRATROPIUM 0.5 INH SOL 3 ML VIAL.NEB. NEB ONE (20:38)
[2018-09-12] MEDS: ALBUTEROL SO4 2.5/IPRATROPIUM 0.5 INH SOL 3 ML VIAL.NEB. NEB SCH (20:48)
[2018-09-12] MEDS ORDERED: HYDROCORTISONE 0.5% TOPICAL CREAM 30 GM TUBE TP PRN (21:34)
[2018-09-12] MEDS ORDERED: FAMOTIDINE 20 MG/50 ML IVPB 20 MG/50 ML MG IVPB SCH (22:00)
[2018-09-12] MEDS: PANTOPRAZOLE 40 MG TABLET (FP) PO SCH (23:12)
[2018-09-12] MEDS: QUEtiapine FUMARATE 25 MG TABLET (FP) PO SCH (23:12)
[2018-09-12] MEDS: FERROUS SO4 325 MG TABLET (FP) PO SCH (23:13)
[2018-09-13 00:23] VITALS: BMI 15.3
[2018-09-13] MEDS: LEVOTHYROXINE NA 50 MCG TABLET (FP) PO SCH (06:45)
[2018-09-13 07:54] LABS: BASO % 0.3 % (0-2.0); HEMATOCRIT 37.1 % (32.4-45.2); HEMOGLOBIN 11.5 GM/dL (10.7-15.3); LYMPH % 11.9 % (8-40); MCH 26.9 pg (25.7-33.7); MCHC 31.1 g/dl (32.0-36.0); MEAN CELL VOLUME 86.5 fl (80-96); MEAN PLT VOLUME 7.6 fl (7.5-11.1); NEUT % 81.8 % (42.8-82.8); PLATELET COUNT 378 K/MM3 (134-434); RBC 4.29 M/mm3 (3.60-5.2); RDW 16.5 % (11.6-15.6); WHITE BLOOD COUNT 17.8 K/mm3 (4.0-10.0)
[2018-09-13] MEDS: ALBUTEROL SO4 2.5/IPRATROPIUM 0.5 INH SOL 3 ML VIAL.NEB. NEB SCH ×4 (07:58→21:22)
[2018-09-13 09:00] LABS: ALBUMIN 2.6 g/dl (3.4-5.0); ALK PHOS 87 U/L (45-117); ANION GAP 10 MMOL/L (8-16); BILIRUBIN,TOTAL 0.2 mg/dL (0.2-1); BLOOD UREA NITROGEN 15 mg/dL (7-18); CALCIUM 8.9 mg/dL (8.5-10.1); CHLORIDE 105 mmol/L (98-107); CO2 24 mmol/L (21-32); CREATININE 0.8 mg/dL (0.55-1.3); GLUCOSE,RANDOM 80 mg/dL (74-106); MAGNESIUM 2.3 mg/dL (1.8-2.4); PHOSPHOROUS 4.1 mg/dL (2.5-4.9); SGOT/AST 10 U/L (15-37); SGPT/ALT 16 U/L (13-61); SODIUM 139 mmol/L (136-145); TOT PROT 5.4 g/dl (6.4-8.2)
[2018-09-13] MEDS: SERTRALINE HCL 50 MG TABLET (FP) PO SCH (09:33)
[2018-09-13] MEDS: FERROUS SO4 325 MG TABLET (FP) PO SCH ×2 (09:33→22:27)
[2018-09-13] MEDS: PANTOPRAZOLE 40 MG TABLET (FP) PO SCH ×2 (09:33→22:27)
--- NOTE | 2018-09-13 09:52 | PN ---
Physical Exam: SUBJECTIVE: Patient seen and examined at the bedside. OBJECTIVE: rash improving qtc increased 462-482, stop levaquin. daily ekg monitoring. further antibiotic therapy deferred to ID. wbc improving Vital Signs Period Temp Pulse Resp BP Sys/Riggins Pulse Ox Last 24 Hr 97 F-99.2 F 69-97 16-22 111-133/56-72 96-98 GENERAL: Awake, alert with history of dementia. her sister provides the history HEAD: Normal with no signs of trauma. EYES: Pupils equal, round and reactive to light, extraocular movements intact, sclera anicteric, conjunctiva clear. No lid lag. EARS, NOSE, THROAT: Ears normal, nares patent, oropharynx clear without exudates. Moist mucous membranes. NECK: Normal range of motion, supple without lymphadenopathy, JVD, or masses. LUNGS: crackles on upper and lobes of the right lung. left lung diminished. HEART: Regular rate and rhythm ABDOMEN: Soft, nontender, mildly distended, normoactive bowel sounds, no guarding, no rebound, no masses. MUSCULOSKELETAL: Normal range of motion at all joints. No bony deformities or tenderness. No CVA tenderness. UPPER EXTREMITIES: 2+ pulses, warm, well-perfused. No cyanosis. No clubbing. No peripheral edema. LOWER EXTREMITIES: 2+ pulses, warm, well-perfused. No calf tenderness. No peripheral edema. NEUROLOGICAL: clear speech, facial symmetry PSYCHIATRIC: Cooperative. Good eye contact. Appropriate mood and affect. SKIN: erythematous macular rash along front and back of torso and medial aspect of thighs. Laboratory Results - last 24 hr 09/12/18 09/12/18 09/12/18 12:35 12:40 12:40 WBC 26.2 H RBC 4.74 Hgb 13.6 Hct 40.4 MCV 85.1 MCH 28.6 MCHC 33.6 RDW 16.3 H Plt Count 457 H MPV 7.6 Absolute Neuts (auto) 21.4 H Neutrophils % 81.5 Neutrophils % (Manual) 79.0 Band Neutrophils % 0.0 Lymphocytes % 10.6 D Lymphocytes % (Manual) 15.0 D Monocytes % 6.4 Monocytes % (Manual) 6 Eosinophils % 1.0 Eosinophils % (Manual) 0.0 D Basophils % 0.5 Basophils % (Manual) 0.0 Myelocytes % (Man) 0 Promyelocytes % (Man) 0 Blast Cells % (Manual) 0 Nucleated RBC % 0 Metamyelocytes 0 Hypochromia 0 Toxic Granulation 0 Dohle Bodies 0 Platelet Estimate Normal Polychromasia 0 Poikilocytosis 0 Basophilic Stippling 0 Anisocytosis 0 Microcytosis 0 Macrocytosis 0 Spherocytes 0 Sickle Cells 0 Target Cells 0 Tear Drop Cells 0 Ovalocytes 0 Stomatocytes 0 Helmet Cells 0 [place] Bodies 0 [place] Rings 0 [place]oss Cells 0 Acanthocytes (Spur) 0 Rouleaux 0 Fragmented RBCs 0 Schistocytes 0 Sodium 135 L Potassium 3.9 Chloride 102 Carbon Dioxide 25 Anion Gap 9 BUN 13 Creatinine 0.8 Creat Clearance w eGFR > 60 Random Glucose 97 Calcium 9.2 Phosphorus Magnesium Total Bilirubin 0.3 AST 13 L ALT 20 Alkaline Phosphatase 102 Troponin I < 0.02 B-Natriuretic Peptide 186.2 Total Protein 6.1 L Albumin 2.9 L TSH 3.89 H Urine Color Urine Appearance Urine pH Ur Specific [place] Urine Protein Urine Glucose (UA) Urine Ketones Urine Blood Urine Nitrite Urine Bilirubin Urine Urobilinogen Ur Leukocyte Esterase Stool Occult Blood 09/12/18 09/12/18 09/13/18 13:46 17:24 06:30 WBC 17.8 H RBC 4.29 Hgb 11.5 Hct 37.1 MCV 86.5 MCH 26.9 MCHC 31.1 L RDW 16.5 H Plt Count 378 MPV 7.6 Absolute Neuts (auto) 14.6 H Neutrophils % 81.8 Neutrophils % (Manual) Band Neutrophils % Lymphocytes % 11.9 Lymphocytes % (Manual) Monocytes % 6.0 Monocytes % (Manual) Eosinophils % 0.0 D Eosinophils % (Manual) Basophils % 0.3 Basophils % (Manual) Myelocytes % (Man) Promyelocytes % (Man) Blast Cells % (Manual) Nucleated RBC % 0 Metamyelocytes Hypochromia Toxic Granulation Dohle Bodies Platelet Estimate Polychromasia Poikilocytosis Basophilic Stippling Anisocytosis Microcytosis Macrocytosis Spherocytes Sickle Cells Target Cells Tear Drop Cells Ovalocytes Stomatocytes Helmet Cells [place] Bodies [place] Rings Joss Cells Acanthocytes (Spur) Rouleaux Fragmented RBCs Schistocytes Sodium Potassium Chloride Carbon Dioxide Anion Gap BUN Creatinine Creat Clearance w eGFR Random Glucose Calcium Phosphorus Magnesium Total Bilirubin AST ALT Alkaline Phosphatase Troponin I B-Natriuretic Peptide Total Protein Albumin TSH Urine Color Yellow Urine Appearance Clear Urine pH 6.0 Ur Specific [place] 1.014 Urine Protein Negative Urine Glucose (UA) Negative Urine Ketones Negative Urine Blood Negative Urine Nitrite Negative Urine Bilirubin Negative Urine Urobilinogen Negative Ur Leukocyte Esterase Negative Stool Occult Blood Negative 09/13/18 06:30 WBC RBC Hgb Hct MCV MCH MCHC RDW Plt Count MPV Absolute Neuts (auto) Neutrophils % Neutrophils % (Manual) Band Neutrophils % Lymphocytes % Lymphocytes % (Manual) Monocytes % Monocytes % (Manual) Eosinophils % Eosinophils % (Manual) Basophils % Basophils % (Manual) Myelocytes % (Man) Promyelocytes % (Man) Blast Cells % (Manual) Nucleated RBC % Metamyelocytes Hypochromia Toxic Granulation Dohle Bodies Platelet Estimate Polychromasia Poikilocytosis Basophilic Stippling Anisocytosis Microcytosis Macrocytosis Spherocytes Sickle Cells Target Cells Tear Drop Cells Ovalocytes Stomatocytes Helmet Cells [place] Bodies [place] Rings Joss Cells Acanthocytes (Spur) Rouleaux Fragmented RBCs Schistocytes Sodium 139 Potassium 4.0 Chloride 105 Carbon Dioxide 24 Anion Gap 10 BUN 15 Creatinine 0.8 Creat Clearance w eGFR > 60 Random Glucose 80 Calcium 8.9 Phosphorus 4.1 Magnesium 2.3 Total Bilirubin 0.2 AST 10 L ALT 16 Alkaline Phosphatase 87 Troponin I B-Natriuretic Peptide Total Protein 5.4 L Albumin 2.6 L TSH Urine Color Urine Appearance Urine pH Ur Specific [place] Urine Protein Urine Glucose (UA) Urine Ketones Urine Blood Urine Nitrite Urine Bilirubin Urine Urobilinogen Ur Leukocyte Esterase Stool Occult Blood Active Medications Generic Name Dose Route Start Last Admin Trade Name Maria M PRN Reason Stop Dose Admin Acetaminophen 650 mg 09/12/18 15:23 Tylenol - PO Q6H PRN PAIN LEVEL 7 - 10 Albuterol/Ipratropium 1 amp 09/12/18 20:45 09/13/18 07:58 Duoneb - NEB 1 amp RQID MISTI Administration Buspirone HCl 2.5 mg 09/12/18 20:30 Buspar - PO DAILY PRN ANXIETY Docusate Sodium 100 mg 09/12/18 20:30 Colace - PO DAILY PRN CONSTIPATION Ferrous Sulfate 325 mg 09/12/18 22:00 09/13/18 09:33 Feosol - PO 325 mg BID MISTI Administration Hydrocortisone 1 applic 09/12/18 21:34 Hytone 0.5% Cream - TP BID PRN rash Sodium Chloride 250 mls @ 0 mls/hr 09/12/18 13:15 09/12/18 13:28 Normal Saline - IV 250 mls/hr ASDIR MISTI Administration Wide Open Sodium Chloride 1,000 mls @ 50 mls/hr 09/12/18 15:30 09/12/18 16:27 Normal Saline - IV 09/13/18 15:25 50 mls/hr ASDIR MISTI Administration Azithromycin 250 mg/ Dextrose 250 mls @ 250 mls/hr 09/13/18 10:00 IVPB DAILY MISTI Levothyroxine Sodium 50 mcg 09/13/18 07:00 09/13/18 06:45 Synthroid - PO 50 mcg DAILY@0700 MISTI Administration Methylprednisolone Sodium Succinate 40 mg 09/13/18 10:00 09/13/18 09:33 Solu-Medrol - IVPUSH 40 mg DAILY MISTI Administration Pantoprazole Sodium 40 mg 09/12/18 22:00 09/13/18 09:33 Protonix - PO 40 mg BID MISTI Administration Quetiapine Fumarate 25 mg 09/12/18 22:00 09/12/18 23:12 Seroquel - PO 25 mg HS MISTI Administration Sertraline HCl 100 mg 09/13/18 10:00 09/13/18 09:33 Zoloft - PO 100 mg DAILY MISTI Administration ASSESSMENT/PLAN: Patient is an 88 year old female with a significant past medical history of hypothyroidism, Parkinson's, dementia, anemia, ESBL UTIs, diastolic CHF, COPD, HTN and anemia. She presents to the ED with complaints of a diffused pink generalized rash that erupted yesterday after taking Augmentin for pneumonia --------- Problem list Bilateral pneumonia Esophagitis Large hiatal hernia Dementia Chronic diastolic HF Hypertension Parkinsons disease Drug Rash Hypothyroidism ESBL UTIs Diastolic CHF COPD Anemia Integumentary * skin rash, secondary to augmentin. drug allergy added to emar. On solumedrol No wheezing but has crackles on her right an left lung. Will add duonebs, and monitor any wheezing. * benadryl and hydrocortisone for rash. Pneumonia * Patient was treated for zosyn on previous admission. Chest CTA with extensive bilateral chronic lung disease. Govem one dose of Levaquin. Further antibiotics per ID. Pulmonary consulted. * COPD. start on duonebs. Seen by pulm, and now on solumedrol q6 Hiatal Hernia/Esophagitis * started on full liquid diet. PPI and antacid. No surgical interventions per sister. Chronic diastolic HF * Monitor intake and output, avoid fluid overload. monitor. Parkinsons disease * Patient was weaned off Parkinsons medications by her primary care provider. Rule out GI bleed * stool occult negative. hmg/hct stabe. protonix bid. Hypertension * stable. monitor. Hypothyroidsm * continue Synthroid. ESBL UTIs, history * ua/uc ordered. fen oral intake monitor electrolytes full liquid, honey thick fluids prophy SCDs protonix bid Visit type - Emergency Visit Emergency Visit: Yes ED Registration Date: 09/12/18 Care time: The patient presented to the Emergency Department on the above date and was hospitalized for further evaluation of their emergent condition. - New Patient This patient is new to me today: No - Critical Care Critical Care patient: No - Discharge Referral Referred to [facility] Med P.C.: No
[2018-09-13] MEDS ORDERED: PANTOPRAZOLE 40 MG TABLET (FP) PO SCH (10:00)
[2018-09-13] MEDS ORDERED: AZITHROMYCIN IVPB 250 MG in DEXTROSE 5%-WATER - 250 ML IVPB SCH (10:00)
[2018-09-13] MEDS ORDERED: methylPREDNISolone NA SUCC 40 MG/1 ML VIAL IVPUSH SCH (10:00)
--- NOTE | 2018-09-13 10:21 | EKG ---
Test Reason : Blood Pressure : / mmHG Vent. Rate : 080 BPM Atrial Rate : 080 BPM P-R Int : 174 ms QRS Dur : 082 ms QT Int : 418 ms P-R-T Axes : 041 -26 016 degrees QTc Int : 482 ms NORMAL SINUS RHYTHM WITH SINUS ARRHYTHMIA MINIMAL VOLTAGE CRITERIA FOR LVH, MAY BE NORMAL VARIANT BORDERLINE ECG WHEN COMPARED WITH ECG OF 12-SEP-2018 13:07, NO SIGNIFICANT CHANGE WAS FOUND Confirmed by SAYRA SINGH, YIFAN ([id number]) on 09/13/2018 10:21:20 AM Referred By: Liza HAYWARD Confirmed By:YIFAN COLBERT MD
--- NOTE | 2018-09-13 10:37 | PN ---
Progress Note (short form) - Note Progress Note: PULMONARY CONSULTATION DICTATED 09/13/18 IMP DYSPNEA COPD EXACERBATION RECENT PNEUMONIA HTN DEMENTIA PARKINSONS DIFFUSE ERYTHEMATOUS MACULAR RASH LIKELY DRUG REACTION HYPOTHYROID PLAN IV MEDROL INHALED BRONCHODILATORS ABX PER ID SUPPLEMENTAL O2 F/U CHEST X-RAYS SPUTUM C+ S CONSIDER DERMATOLOGY EVALUATION DR SWARTZ Problem List - Problems (1) CHF (congestive heart failure) Code(s): I50.9 - HEART FAILURE, UNSPECIFIED (2) COPD exacerbation Code(s): J44.1 - CHRONIC OBSTRUCTIVE PULMONARY DISEASE W (ACUTE) EXACERBATION (3) Dementia Code(s): F03.90 - UNSPECIFIED DEMENTIA WITHOUT BEHAVIORAL DISTURBANCE (4) Hypothyroid Code(s): E03.9 - HYPOTHYROIDISM, UNSPECIFIED (5) Pneumonia Code(s): J18.9 - PNEUMONIA, UNSPECIFIED ORGANISM (6) Hypothyroidism Code(s): E03.9 - HYPOTHYROIDISM, UNSPECIFIED (7) Parkinson disease Code(s): G20 - PARKINSON'S DISEASE (8) Seizure disorder Code(s): G40.909 - EPILEPSY, UNSP, NOT INTRACTABLE, WITHOUT STATUS EPILEPTICUS (9) Weakness Code(s): R53.1 - WEAKNESS
--- NOTE | 2018-09-13 11:02 | CON.CARD ---
Cardiology Consult (text) - Consultation Consultation Note: cc: rash hx limited due to pt dementia, also obtained from charts hpi: 88 f hx parkinsons, dementia, dchf, htn, hypothyroid, cad (per charts, no further details, pt denies but poor historian), here with rash. Recent admit for pna, sent home on po abx and developed rash so brought back to ER. Pt offers no hx, laying comfortably in bed. Per charts she also had persistent productive cough. pmh: per hpi psh: cholecystectomy social: no tob fam: unknown ros: unable to obtain 2/2 dementia meds: Ambulatory Orders Home Medications Medication Instructions Recorded Levothyroxine [Synthroid -] 50 mcg PO DAILY 08/18/15 Buspirone HCl [Buspar -] 2.5 mg PO DAILY PRN 05/09/18 Risperidone [Risperdal -] 0.25 mg PO BID 05/09/18 Sertraline HCl [Zoloft] 100 mg PO DAILY 05/23/18 Docusate Sodium 100 mg PO PRN 08/31/18 Ferrous Sulfate 325 mg PO BID 08/31/18 Lactobacillus Acidophilus [Bacid -] 1 tab PO DAILY 08/31/18 Quetiapine Fumarate [Seroquel -] 25 mg PO HS 08/31/18 Sennosides [Senna] 17.2 mg PO PRN 08/31/18 Amox-Tr/K Cl [Augmentin 500-125mg 1 tab PO BID@0800,1730 tablet 09/09/18 Tablet -] Amoxicillin/Potassium Clav 1 each PO BID #24 tablet 09/09/18 [Augmentin 500-125 Tablet] pe: Vital Signs Period Temp Pulse Resp BP Sys/Riggins Pulse Ox Last 24 Hr 97 F-99.2 F 69-97 16-22 111-133/56-72 96-98 nad, no jvd rrr s1s2 no mrg cta bl nl eff awake alert confused no le e/c/c abd nt nd pos bs pos dp pt no jaundice diaphoresis Laboratory Last Values WBC 17.8 K/mm3 (4.0-10.0) H 09/13/18 06:30 RBC 4.29 M/mm3 (3.60-5.2) 09/13/18 06:30 Hgb 11.5 GM/dL (10.7-15.3) 09/13/18 06:30 Hct 37.1 % (32.4-45.2) 09/13/18 06:30 MCV 86.5 fl (80-96) 09/13/18 06:30 MCH 26.9 pg (25.7-33.7) 09/13/18 06:30 MCHC 31.1 g/dl (32.0-36.0) L 09/13/18 06:30 RDW 16.5 % (11.6-15.6) H 09/13/18 06:30 Plt Count 378 K/MM3 (134-434) 09/13/18 06:30 MPV 7.6 fl (7.5-11.1) 09/13/18 06:30 Absolute Neuts (auto) 14.6 K/mm3 (1.5-8.0) H 09/13/18 06:30 Neutrophils % 81.8 % (42.8-82.8) 09/13/18 06:30 Neutrophils % (Manual) 79.0 % (42.8-82.8) 09/12/18 12:35 Band Neutrophils % 0.0 % 09/12/18 12:35 Lymphocytes % 11.9 % (8-40) 09/13/18 06:30 Lymphocytes % (Manual) 15.0 % (8-40) D 09/12/18 12:35 Monocytes % 6.0 % (3.8-10.2) 09/13/18 06:30 Monocytes % (Manual) 6 % (3.8-10.2) 09/12/18 12:35 Eosinophils % 0.0 % (0-4.5) D 09/13/18 06:30 Eosinophils % (Manual) 0.0 % (0-4.5) D 09/12/18 12:35 Basophils % 0.3 % (0-2.0) 09/13/18 06:30 Basophils % (Manual) 0.0 % (0-2.0) 09/12/18 12:35 Myelocytes % (Man) 0 % (0-2) 09/12/18 12:35 Promyelocytes % (Man) 0 % (0-2) 09/12/18 12:35 Blast Cells % (Manual) 0 % (0-0) 09/12/18 12:35 Nucleated RBC % 0 % (0-0) 09/13/18 06:30 Metamyelocytes 0 % (0-2) 09/12/18 12:35 Hypochromia 0 09/12/18 12:35 Toxic Granulation 0 09/12/18 12:35 Dohle Bodies 0 09/12/18 12:35 Platelet Estimate Normal 09/12/18 12:35 Polychromasia 0 09/12/18 12:35 Poikilocytosis 0 09/12/18 12:35 Basophilic Stippling 0 09/12/18 12:35 Anisocytosis 0 09/12/18 12:35 Microcytosis 0 09/12/18 12:35 Macrocytosis 0 09/12/18 12:35 Spherocytes 0 09/12/18 12:35 Sickle Cells 0 09/12/18 12:35 Target Cells 0 09/12/18 12:35 Tear Drop Cells 0 09/12/18 12:35 Ovalocytes 0 09/12/18 12:35 Stomatocytes 0 09/12/18 12:35 Helmet Cells 0 09/12/18 12:35 [place] Bodies 0 09/12/18 12:35 [place] Rings 0 09/12/18 12:35 Joss Cells 0 09/12/18 12:35 Acanthocytes (Spur) 0 09/12/18 12:35 Rouleaux 0 09/12/18 12:35 Fragmented RBCs 0 09/12/18 12:35 Schistocytes 0 09/12/18 12:35 Sodium 139 mmol/L (136-145) 09/13/18 06:30 Potassium 4.0 mmol/L (3.5-5.1) 09/13/18 06:30 Chloride 105 mmol/L (98-107) 09/13/18 06:30 Carbon Dioxide 24 mmol/L (21-32) 09/13/18 06:30 Anion Gap 10 MMOL/L (8-16) 09/13/18 06:30 BUN 15 mg/dL (7-18) 09/13/18 06:30 Creatinine 0.8 mg/dL (0.55-1.3) 09/13/18 06:30 Creat Clearance w eGFR > 60 (>60) 09/13/18 06:30 Random Glucose 80 mg/dL (74-106) 09/13/18 06:30 Calcium 8.9 mg/dL (8.5-10.1) 09/13/18 06:30 Phosphorus 4.1 mg/dL (2.5-4.9) 09/13/18 06:30 Magnesium 2.3 mg/dL (1.8-2.4) 09/13/18 06:30 Total Bilirubin 0.2 mg/dL (0.2-1) 09/13/18 06:30 AST 10 U/L (15-37) L 09/13/18 06:30 ALT 16 U/L (13-61) 09/13/18 06:30 Alkaline Phosphatase 87 U/L (45-117) 09/13/18 06:30 Troponin I < 0.02 ng/ml (0.00-0.05) 09/12/18 12:40 B-Natriuretic Peptide 186.2 pg/ml (5-450) 09/12/18 12:40 Total Protein 5.4 g/dl (6.4-8.2) L 09/13/18 06:30 Albumin 2.6 g/dl (3.4-5.0) L 09/13/18 06:30 TSH 3.89 uIU/ml (0.358-3.74) H 09/12/18 12:40 Urine Color Yellow 09/12/18 17:24 Urine Appearance Clear 09/12/18 17:24 Urine pH 6.0 (5.0-8.0) 09/12/18 17:24 Ur Specific [place] 1.014 (1.010-1.035) 09/12/18 17:24 Urine Protein Negative (NEGATIVE) 09/12/18 17:24 Urine Glucose (UA) Negative (NEGATIVE) 09/12/18 17:24 Urine Ketones Negative (NEGATIVE) 09/12/18 17:24 Urine Blood Negative (NEGATIVE) 09/12/18 17:24 Urine Nitrite Negative (NEGATIVE) 09/12/18 17:24 Urine Bilirubin Negative (<2.0 mg/dL) 09/12/18 17:24 Urine Urobilinogen Negative mg/dL (0.2-1.0) 09/12/18 17:24 Ur Leukocyte Esterase Negative (NEGATIVE) 09/12/18 17:24 Stool Occult Blood Negative (NEGATIVE) 09/12/18 13:46 echo 10/2012: nl lv/rv, no sig valve path echo 08/2015: nl lv/rv, mild mr/tr, nl rvsp ecg: sr, nl intervals, no ischemic changes ct chest: no chf tele: sr a/p: 88 f hx parkinsons, dementia, dchf, htn, hypothyroid, cad (per charts, no further details, pt denies but poor historian), here with rash, pna. pna: -abx per ID/pmd chronic diastolic chf: -echo 08/2015: nl lv/rv, mild mr/tr, nl rvsp. check updated echo. -currently seems euvolemic off diuretic. ct chest shows no chf. bnp is wnl. would continue to hold off on diuretics for now. htn: -bp stable off meds, monitor for now cad: -per charts, no further details, pt denies but poor historian -no signs acs -prior echo showed normal lvef, no WMA's -seems stable
[2018-09-13] MEDS ORDERED: PT OWN MED DRAWER 7, Y5N ONE (11:12)
--- NOTE | 2018-09-13 15:15 | CON.ID ---
Consult Consult Specialty:: infectious diseases Referred by:: Elsa Reason for Consultation:: rash - History of Present Illness Chief Complaint: rash,sob History of Present Illness: 88 year old female with a significant past medical history of hypothyroidism, Parkinson's, dementia, anemia, ESBL UTIs, diastolic CHF, COPD, HTN and anemia. patient well known to me from last admission and who was just discharged came to the hospital with complaints of a diffused pink generalized rash that erupted yesterday after taking Augmentin for pneumonia Sister reports that after being discharge at [facility] 2 days ago, she noticed that patient continued to be weak with a non productive cough. She continued to give her the Augmentin as prescribed and then today noticed that she developed a generalized rash that covered most of her body. She also reports that her sister had a black bowel movement today. Patient recently at [facility] from 08/31/18 to 09/09/18 for pneumonia and while admitted was treated with Zosyn IV. She was converted to Augmentin on 09/07/18. She was sent home and continued to take the antibiotics. When her sister noted the rash she was brought into the ED for further evaluation. patient was worked up and found to have leukocytosis - History Source History Provided By: Patient, Family Member Limitations to Obtaining History: No Limitations - Past Medical History [employer]: Yes: Dementia, Parkinson's, Seizure Cardio/Vascular: Yes: CAD, CHF (diastolic), HTN Pulmonary: Yes: Other (aspiration pneumonia x 2 in 2008) Gastrointestinal: Yes: Diverticulosis, GERD, Hiatal Hernia, Other (chronic diarrhea . Colon adenoma removed 2011.) Hepatobiliary: Yes: Cholelithiasis (s/p cholecystectomy) Renal/: Yes: UTI Infectious Disease: Yes: C-Diff Psych: Yes: Depression Endocrine: Yes: Hypothyroidism - Past Surgical History Past Surgical History: Yes: Cholecystectomy, Colonoscopy (07/18/12 = adenoma removed, diverticulosis seen), Upper Endoscopy (1) - Alcohol/Substance Use Hx Alcohol Use: No History of Substance Use: reports: None - Smoking History Smoking history: Never smoked Have you smoked in the past 12 months: No Aproximately how many cigarettes per day: 0 If you are a former smoker, when did you quit?: Over 40 years ago - Social History Usual Living Arrangement: With Significant Other (has no children) ADL: Family Assistance 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 History of Recent Travel: No Home Medications - Allergies Allergies/Adverse Reactions: Allergies Allergy/AdvReac Type Severity Reaction Status Date / Time amoxicillin [From Augmentin] Allergy Severe Hives Verified 09/12/18 15:45 clavulanic acid Allergy Severe Hives Verified 09/12/18 15:45 [From Augmentin] - Home Medications Home Medications: Ambulatory Orders Levothyroxine [Synthroid -] 50 mcg PO DAILY 08/18/15 Buspirone HCl [Buspar -] 2.5 mg PO DAILY PRN 05/09/18 Risperidone [Risperdal -] 0.25 mg PO BID 05/09/18 Sertraline HCl [Zoloft] 100 mg PO DAILY 05/23/18 Docusate Sodium 100 mg PO PRN 08/31/18 Ferrous Sulfate 325 mg PO BID 08/31/18 Lactobacillus Acidophilus [Bacid -] 1 tab PO DAILY 08/31/18 Quetiapine Fumarate [Seroquel -] 25 mg PO HS 08/31/18 Sennosides [Senna] 17.2 mg PO PRN 08/31/18 Amox-Tr/K Cl [Augmentin 500-125mg Tablet -] 1 tab PO BID@0800,1730 tablet 09/09 Amoxicillin/Potassium Clav [Augmentin 500-125 Tablet] 1 each PO BID #24 tablet 09/09/18 Family Disease History - Family Disease History Family Disease History: CA: Father (mesothelioma and laryngeal tumors), Brother (colon cancer), Sister (PPM, lung cancer), Other: Mother ( CVA), Sister Review of Systems - Review of Systems Constitutional: reports: No Symptoms Eyes: reports: No Symptoms HENT: reports: No Symptoms Neck: reports: No Symptoms Cardiovascular: reports: No Symptoms Respiratory: reports: Cough Gastrointestinal: reports: No Symptoms Genitourinary: reports: No Symptoms Musculoskeletal: reports: No Symptoms Integumentary: reports: No Symptoms Neurological: reports: No Symptoms Endocrine: reports: No Symptoms Hematology/Lymphatic: reports: No Symptoms Psychiatric: reports: No Symptoms Physical Exam Vital Signs: Vital Signs Temperature 97.9 F 09/13/18 14:00 Pulse Rate 98 H 09/13/18 14:00 Respiratory Rate 20 09/13/18 14:00 Blood Pressure 112/54 L 09/13/18 14:00 O2 Sat by Pulse Oximetry (%) 97 09/13/18 09:00 Constitutional: Yes: No Distress, Calm, Other Cardiovascular: Yes: Regular Rate and Rhythm Respiratory: Yes: Regular, CTA Bilaterally Gastrointestinal: Yes: Normal Bowel Sounds, Soft Musculoskeletal: Yes: WNL Extremities: Yes: WNL Integumentary: Yes: Rash (diffuse) Neurological: Yes: Alert, Oriented Psychiatric: Yes: Alert, Oriented Labs: CBC, BMP 09/13/18 06:30 09/13/18 06:30 Imaging - Results Chest X-ray: Report Reviewed, Image Reviewed Assessment/Plan Assessment/Plan Problem List - Problems (1) Pneumonia Code(s): J18.9 - PNEUMONIA, UNSPECIFIED ORGANISM (2) Anemia Code(s): D64.9 - ANEMIA, UNSPECIFIED Qualifiers: Other causes of anemia: other cause, not classified Qualified Code(s): D64.89 - Other specified anemias (3) CAD (coronary artery disease) Code(s): I25.10 - ATHSCL HEART DISEASE OF [place] CORONARY ARTERY W/O ANG PCTRS (4) CHF (congestive heart failure) Code(s): I50.9 - HEART FAILURE, UNSPECIFIED Qualifiers: Qualified Code(s): I50.9 - Heart failure, unspecified (5) Diverticula of colon Code(s): K57.30 - DVRTCLOS OF LG INT W/O PERFORATION OR ABSCESS W/O BLEEDING (6) Hiatal hernia Code(s): K44.9 - DIAPHRAGMATIC HERNIA WITHOUT OBSTRUCTION OR GANGRENE (7) Hypothyroidism Code(s): E03.9 - HYPOTHYROIDISM, UNSPECIFIED (8) Parkinson disease Code(s): G20 - PARKINSON'S DISEASE (9) Seizure disorder Code(s): G40.909 - EPILEPSY, UNSP, NOT INTRACTABLE, WITHOUT STATUS EPILEPTICUS 10 rash diffuse i think the rash could be due to augmentin though patient had no issues with zosyn so what was the triggering cause i do not know i also do not think that she has any rep issues or pneumonia at the moment patient going to get a ct scan of the chest plan no abx at this time treatment for rash nutrition rest as per the team
--- NOTE | 2018-09-13 15:19 | PN ---
Progress Note, Physician History of Present Illness: patient stable doing well wbc trending down rash better - Current Medication List Current Medications: Active Medications Acetaminophen (Tylenol -) 650 mg PO Q6H PRN PRN Reason: PAIN LEVEL 7 - 10 Albuterol/Ipratropium (Duoneb -) 1 amp NEB RQID [facility] Last Admin: 09/13/18 12:06 Dose: 1 amp Buspirone HCl (Buspar -) 2.5 mg PO DAILY PRN PRN Reason: ANXIETY Docusate Sodium (Colace -) 100 mg PO DAILY PRN PRN Reason: CONSTIPATION Ferrous Sulfate (Feosol -) 325 mg PO BID [facility] Last Admin: 09/13/18 09:33 Dose: 325 mg Hydrocortisone (Hytone 0.5% Cream -) 1 applic TP BID PRN PRN Reason: rash Sodium Chloride (Normal Saline -) 250 mls @ 0 mls/hr IV ASDIR [facility] Last Admin: 09/12/18 13:28 Dose: 250 mls/hr Sodium Chloride (Normal Saline -) 1,000 mls @ 50 mls/hr IV ASDIR [facility] Stop: 09/13/18 15:25 Last Admin: 09/12/18 16:27 Dose: 50 mls/hr Azithromycin 250 mg/ Dextrose 250 mls @ 250 mls/hr IVPB DAILY [facility] Last Admin: 09/13/18 11:22 Dose: 250 mls/hr Levothyroxine Sodium (Synthroid -) 50 mcg PO DAILY@0700 [facility] Last Admin: 09/13/18 06:45 Dose: 50 mcg Methylprednisolone Sodium Succinate (Solu-Medrol -) 40 mg IVPUSH Q8H-IV [facility]I Pantoprazole Sodium (Protonix -) 40 mg PO BID [facility] Last Admin: 09/13/18 09:33 Dose: 40 mg Quetiapine Fumarate (Seroquel -) 25 mg PO HS [facility] Last Admin: 09/12/18 23:12 Dose: 25 mg Sertraline HCl (Zoloft -) 100 mg PO DAILY [facility] Last Admin: 09/13/18 09:33 Dose: 100 mg - Objective Vital Signs: Vital Signs Temperature 97.9 F 09/13/18 14:00 Pulse Rate 98 H 09/13/18 14:00 Respiratory Rate 20 09/13/18 14:00 Blood Pressure 112/54 L 09/13/18 14:00 O2 Sat by Pulse Oximetry (%) 97 09/13/18 09:00 Constitutional: Yes: No Distress, Calm Cardiovascular: Yes: Regular Rate and Rhythm Respiratory: Yes: Regular, CTA Bilaterally Gastrointestinal: Yes: Normal Bowel Sounds, Soft Musculoskeletal: Yes: WNL Extremities: Yes: WNL Integumentary: Yes: Rash (diffuse all over the body improving) Neurological: Yes: Alert, Oriented Psychiatric: Yes: Alert Labs: CBC, BMP 09/13/18 06:30 09/13/18 06:30 - ....Imaging Cat Scan: Report Reviewed, Image Reviewed Assessment/Plan Assessment/Plan Problem List - Problems (1) Pneumonia Code(s): J18.9 - PNEUMONIA, UNSPECIFIED ORGANISM (2) Anemia Code(s): D64.9 - ANEMIA, UNSPECIFIED Qualifiers: Other causes of anemia: other cause, not classified Qualified Code(s): D64.89 - Other specified anemias (3) CAD (coronary artery disease) Code(s): I25.10 - ATHSCL HEART DISEASE OF [place] CORONARY ARTERY W/O ANG PCTRS (4) CHF (congestive heart failure) Code(s): I50.9 - HEART FAILURE, UNSPECIFIED Qualifiers: Qualified Code(s): I50.9 - Heart failure, unspecified (5) Diverticula of colon Code(s): K57.30 - DVRTCLOS OF LG INT W/O PERFORATION OR ABSCESS W/O BLEEDING (6) Hiatal hernia Code(s): K44.9 - DIAPHRAGMATIC HERNIA WITHOUT OBSTRUCTION OR GANGRENE (7) Hypothyroidism Code(s): E03.9 - HYPOTHYROIDISM, UNSPECIFIED (8) Parkinson disease Code(s): G20 - PARKINSON'S DISEASE (9) Seizure disorder Code(s): G40.909 - EPILEPSY, UNSP, NOT INTRACTABLE, WITHOUT STATUS EPILEPTICUS 10 rash diffuse plan continue monitoring without abx rest as per the team incentive malinda physio
[2018-09-13] MEDS: methylPREDNISolone NA SUCC 40 MG/1 ML VIAL IVPUSH SCH (17:04)
[2018-09-13] MEDS: QUEtiapine FUMARATE 25 MG TABLET (FP) PO SCH (22:27)
[2018-09-14] MEDS: methylPREDNISolone NA SUCC 40 MG/1 ML VIAL IVPUSH SCH ×3 (02:33→17:30)
[2018-09-14] MEDS: LEVOTHYROXINE NA 50 MCG TABLET (FP) PO SCH (06:50)
[2018-09-14] MEDS: ALBUTEROL SO4 2.5/IPRATROPIUM 0.5 INH SOL 3 ML VIAL.NEB. NEB SCH ×4 (07:41→21:21)
[2018-09-14 07:48] LABS: BASO % 0.1 % (0-2.0); HEMATOCRIT 34.8 % (32.4-45.2); LYMPH % 5.6 % (8-40); MCH 27.4 pg (25.7-33.7); MCHC 31.7 g/dl (32.0-36.0); MEAN CELL VOLUME 86.6 fl (80-96); MEAN PLT VOLUME 7.7 fl (7.5-11.1); MONO % 1.2 % (3.8-10.2); NEUT % 93.1 % (42.8-82.8); PLATELET COUNT 383 K/MM3 (134-434); RBC 4.02 M/mm3 (3.60-5.2); RDW 17.1 % (11.6-15.6); WHITE BLOOD COUNT 19.7 K/mm3 (4.0-10.0)
[2018-09-14 08:22] LABS: ALBUMIN 2.7 g/dl (3.4-5.0); ALK PHOS 82 U/L (45-117); ANION GAP 8 MMOL/L (8-16); BILIRUBIN,TOTAL 0.2 mg/dL (0.2-1); BLOOD UREA NITROGEN 13 mg/dL (7-18); CHLORIDE 106 mmol/L (98-107); CO2 26 mmol/L (21-32); CREATININE 0.7 mg/dL (0.55-1.3); GLUCOSE,RANDOM 116 mg/dL (74-106); POTASSIUM 4.2 mmol/L (3.5-5.1); SGOT/AST 9 U/L (15-37); SGPT/ALT 20 U/L (13-61); SODIUM 139 mmol/L (136-145); TOT PROT 5.6 g/dl (6.4-8.2)
[2018-09-14] MEDS: SERTRALINE HCL 50 MG TABLET (FP) PO SCH (09:32)
[2018-09-14] MEDS: FERROUS SO4 325 MG TABLET (FP) PO SCH ×2 (09:32→21:11)
[2018-09-14] MEDS: PANTOPRAZOLE 40 MG TABLET (FP) PO SCH ×2 (09:32→21:11)
--- NOTE | 2018-09-14 09:59 | PN ---
Progress Note, Physician History of Present Illness: pulmonary alert,feeling better,less dyspneic. skin rash improving - Current Medication List Current Medications: Active Medications Acetaminophen (Tylenol -) 650 mg PO Q6H PRN PRN Reason: PAIN LEVEL 7 - 10 Albuterol/Ipratropium (Duoneb -) 1 amp NEB RQID [facility] Last Admin: 09/14/18 07:41 Dose: 1 amp Buspirone HCl (Buspar -) 2.5 mg PO DAILY PRN PRN Reason: ANXIETY Docusate Sodium (Colace -) 100 mg PO DAILY PRN PRN Reason: CONSTIPATION Ferrous Sulfate (Feosol -) 325 mg PO BID [facility] Last Admin: 09/14/18 09:32 Dose: 325 mg Hydrocortisone (Hytone 0.5% Cream -) 1 applic TP BID PRN PRN Reason: rash Levothyroxine Sodium (Synthroid -) 50 mcg PO DAILY@0700 [facility] Last Admin: 09/14/18 06:50 Dose: 50 mcg Methylprednisolone Sodium Succinate (Solu-Medrol -) 40 mg IVPUSH Q8H-IV [facility] Last Admin: 09/14/18 09:32 Dose: 40 mg Pantoprazole Sodium (Protonix -) 40 mg PO BID [facility] Last Admin: 09/14/18 09:32 Dose: 40 mg Quetiapine Fumarate (Seroquel -) 25 mg PO HS [facility] Last Admin: 09/13/18 22:27 Dose: 25 mg Sertraline HCl (Zoloft -) 100 mg PO DAILY [facility] Last Admin: 09/14/18 09:32 Dose: 100 mg - Objective Vital Signs: Vital Signs Temperature 97.2 F L 09/14/18 05:59 Pulse Rate 82 09/14/18 05:59 Respiratory Rate 18 09/14/18 05:59 Blood Pressure 126/62 09/14/18 05:59 O2 Sat by Pulse Oximetry (%) 98 09/13/18 20:30 Constitutional: Yes: Calm, Cachectic Eyes: Yes: WNL HENT: Yes: WNL Neck: Yes: WNL Cardiovascular: Yes: Regular Rate and Rhythm, S1, S2 Respiratory: Yes: Rhonchi (scattered maureen rhonchi) Gastrointestinal: Yes: Normal Bowel Sounds, Soft Extremities: Yes: WNL Edema: No Integumentary: Yes: Rash Labs: CBC, BMP 09/14/18 06:30 09/14/18 06:30 Problem List - Problems (1) CHF (congestive heart failure) Code(s): I50.9 - HEART FAILURE, UNSPECIFIED (2) COPD exacerbation Code(s): J44.1 - CHRONIC OBSTRUCTIVE PULMONARY DISEASE W (ACUTE) EXACERBATION (3) Dementia Code(s): F03.90 - UNSPECIFIED DEMENTIA WITHOUT BEHAVIORAL DISTURBANCE (4) Hypothyroid Code(s): E03.9 - HYPOTHYROIDISM, UNSPECIFIED (5) Pneumonia Code(s): J18.9 - PNEUMONIA, UNSPECIFIED ORGANISM (6) Hypothyroidism Code(s): E03.9 - HYPOTHYROIDISM, UNSPECIFIED (7) Parkinson disease Code(s): G20 - PARKINSON'S DISEASE (8) Seizure disorder Code(s): G40.909 - EPILEPSY, UNSP, NOT INTRACTABLE, WITHOUT STATUS EPILEPTICUS (9) Weakness Code(s): R53.1 - WEAKNESS Assessment/Plan IMP DYSPNEA IMPROVING COPD EXACERBATION RECENT PNEUMONIA HTN DEMENTIA PARKINSONS DIFFUSE ERYTHEMATOUS MACULAR RASH LIKELY DRUG REACTION IMPROVING HYPOTHYROID PLAN IV MEDROL SAME DOSE INHALED BRONCHODILATORS SUPPLEMENTAL O2 F/U CHEST X-RAYS DR SWARTZ Problem List - Problems (1) CHF (congestive heart failure) Code(s): I50.9 - HEART FAILURE, UNSPECIFIED (2) COPD exacerbation Code(s): J44.1 - CHRONIC OBSTRUCTIVE PULMONARY DISEASE W (ACUTE) EXACERBATION (3) Dementia Code(s): F03.90 - UNSPECIFIED DEMENTIA WITHOUT BEHAVIORAL DISTURBANCE (4) Hypothyroid Code(s): E03.9 - HYPOTHYROIDISM, UNSPECIFIED (5) Pneumonia Code(s): J18.9 - PNEUMONIA, UNSPECIFIED ORGANISM (6) Hypothyroidism Code(s): E03.9 - HYPOTHYROIDISM, UNSPECIFIED (7) Parkinson disease Code(s): G20 - PARKINSON'S DISEASE (8) Seizure disorder Code(s): G40.909 - EPILEPSY, UNSP, NOT INTRACTABLE, WITHOUT STATUS EPILEPTICUS (9) Weakness Code(s): R53.1 - WEAKNESS
[2018-09-14 10:04] LABS: ACANTHOCYTES 0; ANISOCYTOSIS 0; HELMET CELLS 0; HOWELL-JOLLY BODIES 0; MACROCYTOSIS 0; OVALOCYTE 0; PLATELET ESTIMATE NORMAL; ROULEAU 0; SICKELED CELLS 0; TARGET CELLS 0; TEAR DROP CELLS 0; TOXIC GRANULATION 0
--- NOTE | 2018-09-14 10:36 | PN ---
Progress Note (short form) - Note Progress Note: s: no cp sob palps dizzy o: Vital Signs Period Temp Pulse Resp BP Sys/Riggins Pulse Ox Last 24 Hr 97.2 F-97.9 F 82-102 18-20 112-127/54-62 98 nad, no jvd rrr s1s2 no mrg cta bl nl eff awake alert confused no le e/c/c abd nt nd pos bs no jaundice diaphoresis Current Medications Generic Name Dose Route Start Last Admin Trade Name Freq PRN Reason Stop Dose Admin Acetaminophen 650 mg 09/12/18 15:23 Tylenol - PO Q6H PRN PAIN LEVEL 7 - 10 Albuterol/Ipratropium 1 amp 09/12/18 20:45 09/14/18 07:41 Duoneb - NEB 1 amp RQID MISTI Administration Buspirone HCl 2.5 mg 09/12/18 20:30 Buspar - PO DAILY PRN ANXIETY Docusate Sodium 100 mg 09/12/18 20:30 Colace - PO DAILY PRN CONSTIPATION Ferrous Sulfate 325 mg 09/12/18 22:00 09/14/18 09:32 Feosol - PO 325 mg BID MISTI Administration Hydrocortisone 1 applic 09/12/18 21:34 Hytone 0.5% Cream - TP BID PRN rash Levothyroxine Sodium 50 mcg 09/13/18 07:00 09/14/18 06:50 Synthroid - PO 50 mcg DAILY@0700 M[facility]I Administration Methylprednisolone Sodium Succinate 40 mg 09/13/18 18:00 09/14/18 09:32 Solu-Medrol - IVPUSH 40 mg Q8H-IV MISTI Administration Pantoprazole Sodium 40 mg 09/12/18 22:00 09/14/18 09:32 Protonix - PO 40 mg BID [facility]I Administration Quetiapine Fumarate 25 mg 09/12/18 22:00 09/13/18 22:27 Seroquel - PO 25 mg HS [facility]I Administration Sertraline HCl 100 mg 09/13/18 10:00 09/14/18 09:32 Zoloft - PO 100 mg DAILY [facility] Administration CBC, BMP 09/14/18 06:30 09/14/18 06:30 echo 10/2012: nl lv/rv, no sig valve path echo 08/2015: nl lv/rv, mild mr/tr, nl rvsp ecg: sr, nl intervals, no ischemic changes ct chest: no chf tele: sr a/p: 88 f hx parkinsons, dementia, dchf, htn, hypothyroid, cad (per charts, no further details, pt denies but poor historian), here with rash, pna. pna: -abx per ID/pmd chronic diastolic chf: -echo 08/2015: nl lv/rv, mild mr/tr, nl rvsp. check updated echo. -currently seems euvolemic off diuretic. ct chest shows no chf. bnp is wnl. would continue to hold off on diuretics for now. htn: -bp stable off meds, monitor for now cad: -per charts, no further details, pt denies but poor historian -no signs acs -prior echo showed normal lvef, no WMA's -seems stable dc tele
--- NOTE | 2018-09-14 13:21 | PN ---
Progress Note, Physician History of Present Illness: patient stable doing well wbc trending down rash better - Current Medication List Current Medications: Active Medications Acetaminophen (Tylenol -) 650 mg PO Q6H PRN PRN Reason: PAIN LEVEL 7 - 10 Albuterol/Ipratropium (Duoneb -) 1 amp NEB RQID [facility] Last Admin: 09/14/18 12:11 Dose: 1 amp Buspirone HCl (Buspar -) 2.5 mg PO DAILY PRN PRN Reason: ANXIETY Docusate Sodium (Colace -) 100 mg PO DAILY PRN PRN Reason: CONSTIPATION Ferrous Sulfate (Feosol -) 325 mg PO BID [facility] Last Admin: 09/14/18 09:32 Dose: 325 mg Hydrocortisone (Hytone 0.5% Cream -) 1 applic TP BID PRN PRN Reason: rash Levothyroxine Sodium (Synthroid -) 50 mcg PO DAILY@0700 [facility] Last Admin: 09/14/18 06:50 Dose: 50 mcg Methylprednisolone Sodium Succinate (Solu-Medrol -) 40 mg IVPUSH Q8H-IV [facility] Last Admin: 09/14/18 09:32 Dose: 40 mg Pantoprazole Sodium (Protonix -) 40 mg PO BID [facility] Last Admin: 09/14/18 09:32 Dose: 40 mg Quetiapine Fumarate (Seroquel -) 25 mg PO HS [facility] Last Admin: 09/13/18 22:27 Dose: 25 mg Sertraline HCl (Zoloft -) 100 mg PO DAILY [facility] Last Admin: 09/14/18 09:32 Dose: 100 mg - Objective Vital Signs: Vital Signs Temperature 98.6 F 09/14/18 09:00 Pulse Rate 80 09/14/18 09:00 Respiratory Rate 18 09/14/18 09:00 Blood Pressure 111/80 09/14/18 09:00 O2 Sat by Pulse Oximetry (%) 98 09/14/18 09:00 Constitutional: Yes: No Distress, Calm, Other (failure to hrive) Cardiovascular: Yes: Regular Rate and Rhythm Respiratory: Yes: Regular, CTA Bilaterally Gastrointestinal: Yes: Normal Bowel Sounds, Soft Musculoskeletal: Yes: WNL Extremities: Yes: WNL Wound/Incision: Yes: Other Neurological: Yes: Alert, Other Psychiatric: Yes: Alert Labs: CBC, BMP 09/14/18 06:30 09/14/18 06:30 Assessment/Plan Assessment/Plan Problem List - Problems (1) Pneumonia Code(s): J18.9 - PNEUMONIA, UNSPECIFIED ORGANISM (2) Anemia Code(s): D64.9 - ANEMIA, UNSPECIFIED Qualifiers: Other causes of anemia: other cause, not classified Qualified Code(s): D64.89 - Other specified anemias (3) CAD (coronary artery disease) Code(s): I25.10 - ATHSCL HEART DISEASE OF [place] CORONARY ARTERY W/O ANG PCTRS (4) CHF (congestive heart failure) Code(s): I50.9 - HEART FAILURE, UNSPECIFIED Qualifiers: Qualified Code(s): I50.9 - Heart failure, unspecified (5) Diverticula of colon Code(s): K57.30 - DVRTCLOS OF LG INT W/O PERFORATION OR ABSCESS W/O BLEEDING (6) Hiatal hernia Code(s): K44.9 - DIAPHRAGMATIC HERNIA WITHOUT OBSTRUCTION OR GANGRENE (7) Hypothyroidism Code(s): E03.9 - HYPOTHYROIDISM, UNSPECIFIED (8) Parkinson disease Code(s): G20 - PARKINSON'S DISEASE (9) Seizure disorder Code(s): G40.909 - EPILEPSY, UNSP, NOT INTRACTABLE, WITHOUT STATUS EPILEPTICUS 10 rash diffuse plan continue monitoring without abx rest as per the team incentive malinda physio
--- NOTE | 2018-09-14 17:19 | PN ---
Physical Exam: SUBJECTIVE: Patient seen and examined at the bedside. OBJECTIVE: Vital Signs Period Temp Pulse Resp BP Sys/Riggins Pulse Ox Last 24 Hr 97.2 F-98.6 F 80-102 18-20 111-127/55-80 98-98 GENERAL: Awake, alert with history of dementia. her sister provides all of the history HEAD: Normal with no signs of trauma. EYES: Pupils equal, round and reactive to light, extraocular movements intact, sclera anicteric, conjunctiva clear. No lid lag. EARS, NOSE, THROAT: Ears normal, nares patent, oropharynx clear without exudates. Moist mucous membranes. NECK: Normal range of motion, supple without lymphadenopathy, JVD, or masses. LUNGS: crackles on upper and lobes of the right lung. left lung diminished. HEART: Regular rate and rhythm ABDOMEN: Soft, nontender, mildly distended, normoactive bowel sounds, no guarding, no rebound, no masses. MUSCULOSKELETAL: Normal range of motion at all joints. No bony deformities or tenderness. No CVA tenderness. UPPER EXTREMITIES: 2+ pulses, warm, well-perfused. No cyanosis. No clubbing. No peripheral edema. LOWER EXTREMITIES: 2+ pulses, warm, well-perfused. No calf tenderness. No peripheral edema. NEUROLOGICAL: clear speech, facial symmetry PSYCHIATRIC: Cooperative. Good eye contact. Appropriate mood and affect. SKIN: erythematous macular rash along front and back of torso and medial aspect of thighs - improving Laboratory Results - last 24 hr 09/14/18 09/14/18 06:30 06:30 WBC 19.7 H RBC 4.02 Hgb 11.0 Hct 34.8 MCV 86.6 MCH 27.4 MCHC 31.7 L RDW 17.1 H Plt Count 383 MPV 7.7 Absolute Neuts (auto) 18.4 H Neutrophils % 93.1 H Neutrophils % (Manual) 95.0 H Band Neutrophils % 0.0 Lymphocytes % 5.6 L D Lymphocytes % (Manual) 5.0 L D Monocytes % 1.2 L Monocytes % (Manual) 0 L D Eosinophils % 0.0 Eosinophils % (Manual) 0.0 Basophils % 0.1 Basophils % (Manual) 0.0 Myelocytes % (Man) 0 Promyelocytes % (Man) 0 Blast Cells % (Manual) 0 Nucleated RBC % 0 Metamyelocytes 0 Hypochromia 0 Toxic Granulation 0 Dohle Bodies 0 Platelet Estimate Normal Polychromasia 0 Poikilocytosis 0 Basophilic Stippling 0 Anisocytosis 0 Microcytosis 0 Macrocytosis 0 Spherocytes 0 Sickle Cells 0 Target Cells 0 Tear Drop Cells 0 Ovalocytes 0 Stomatocytes 0 Helmet Cells 0 [place] Bodies 0 [place] Rings 0 [place] Cells 0 Acanthocytes (Spur) 0 Rouleaux 0 Fragmented RBCs 0 Schistocytes 0 Sodium 139 Potassium 4.2 Chloride 106 Carbon Dioxide 26 Anion Gap 8 BUN 13 Creatinine 0.7 Creat Clearance w eGFR > 60 Random Glucose 116 H Calcium 9.0 Total Bilirubin 0.2 AST 9 L ALT 20 Alkaline Phosphatase 82 Total Protein 5.6 L Albumin 2.7 L Active Medications Generic Name Dose Route Start Last Admin Trade Name Freq PRN Reason Stop Dose Admin Acetaminophen 650 mg 09/12/18 15:23 Tylenol - PO Q6H PRN PAIN LEVEL 7 - 10 Albuterol/Ipratropium 1 amp 09/12/18 20:45 09/14/18 12:11 Duoneb - NEB 1 amp RQID MISTI Administration Buspirone HCl 2.5 mg 09/12/18 20:30 Buspar - PO DAILY PRN ANXIETY Docusate Sodium 100 mg 09/12/18 20:30 Colace - PO DAILY PRN CONSTIPATION Ferrous Sulfate 325 mg 09/12/18 22:00 09/14/18 09:32 Feosol - PO 325 mg BID MISTI Administration Hydrocortisone 1 applic 09/12/18 21:34 Hytone 0.5% Cream - TP BID PRN rash Levothyroxine Sodium 50 mcg 09/13/18 07:00 09/14/18 06:50 Synthroid - PO 50 mcg DAILY@0700 MITSI Administration Methylprednisolone Sodium Succinate 40 mg 09/13/18 18:00 09/14/18 09:32 Solu-Medrol - IVPUSH 40 mg Q8H-IV MISTI Administration Pantoprazole Sodium 40 mg 09/12/18 22:00 09/14/18 09:32 Protonix - PO 40 mg BID MISTI Administration Quetiapine Fumarate 25 mg 09/12/18 22:00 09/13/18 22:27 Seroquel - PO 25 mg HS MISTI Administration Sertraline HCl 100 mg 09/13/18 10:00 09/14/18 09:32 Zoloft - PO 100 mg DAILY MISTI Administration ASSESSMENT/PLAN: Patient is an 88 year old female with a significant past medical history of hypothyroidism, Parkinson's, dementia, anemia, ESBL UTIs, diastolic CHF, COPD, HTN and anemia. She presents to the ED with complaints of a diffused pink generalized rash that erupted yesterday after taking Augmentin for pneumonia --------- Problem list Bilateral pneumonia Esophagitis Large hiatal hernia Dementia Chronic diastolic HF Hypertension Parkinsons disease Drug Rash Hypothyroidism ESBL UTIs Diastolic CHF COPD Anemia Integumentary * skin rash, secondary to augmentin. drug allergy added to emar. On solumedrol No wheezing but has crackles on her right an left lung. * benadryl and hydrocortisone for rash. rash improving on upper back but persists on her lower legs. if no improvement of legs, will consult derm. Pneumonia * Patient was treated for zosyn on previous admission. Chest CTA with extensive bilateral chronic lung disease. Givem one dose of Levaquin. Further antibiotics per ID. Pulmonary consulted. * COPD. start on duonebs. Seen by pulm, and now on solumedrol q6 Hiatal Hernia/Esophagitis * started on full liquid diet. PPI and antacid. No surgical interventions per sister. Chronic diastolic HF * Monitor intake and output, avoid fluid overload. monitor. Parkinsons disease * Patient was weaned off Parkinsons medications by her primary care provider. Rule out GI bleed * stool occult negative. hmg/hct stabe. protonix daily Hypertension * stable. monitor. Hypothyroidsm * continue Synthroid. ESBL UTIs, history * ua/uc ordered. fen oral intake monitor electrolytes full liquid, honey thick fluids prophy SCDs protonix Visit type - Emergency Visit Emergency Visit: Yes ED Registration Date: 09/12/18 Care time: The patient presented to the Emergency Department on the above date and was hospitalized for further evaluation of their emergent condition. - New Patient This patient is new to me today: No - Critical Care Critical Care patient: No - Discharge Referral Referred to [facility] Med [facility] No
[2018-09-14] MEDS: QUEtiapine FUMARATE 25 MG TABLET (FP) PO SCH (21:11)
[2018-09-15] MEDS: methylPREDNISolone NA SUCC 40 MG/1 ML VIAL IVPUSH SCH ×3 (01:13→17:50)
[2018-09-15] MEDS: LEVOTHYROXINE NA 50 MCG TABLET (FP) PO SCH ×2 (06:21→07:05)
[2018-09-15] MEDS ORDERED: DOCUSATE SODIUM 100 MG CAPSULE (FP) PO PRN (06:59)
[2018-09-15] MEDS ORDERED: ACETAMINOPHEN 325 MG TABLET (FP) PO PRN (06:59)
[2018-09-15] MEDS ORDERED: busPIRone HCL 5 MG TABLET PO PRN (06:59)
[2018-09-15] MEDS ORDERED: ALBUTEROL SO4 2.5/IPRATROPIUM 0.5 INH SOL 3 ML VIAL.NEB. NEB SCH (08:00)
[2018-09-15] MEDS: FERROUS SO4 325 MG TABLET (FP) PO SCH ×2 (09:54→21:37)
[2018-09-15] MEDS: PANTOPRAZOLE 40 MG TABLET (FP) PO SCH ×2 (09:54→21:37)
[2018-09-15] MEDS: SERTRALINE HCL 50 MG TABLET (FP) PO SCH (09:54)
[2018-09-15] MEDS: HYDROCORTISONE 0.5% TOPICAL CREAM 30 GM TUBE TP PRN (09:59)
--- NOTE | 2018-09-15 10:32 | PN ---
Progress Note, Physician History of Present Illness: PULMONARY ALERT,FEELING BETTER,LESS DYSPNEIC. GENERALIZED RASH SLOWLY IMPROVING - Current Medication List Current Medications: Active Medications Acetaminophen (Tylenol -) 650 mg PO Q6H PRN PRN Reason: PAIN LEVEL 7 - 10 Albuterol/Ipratropium (Duoneb -) 1 amp NEB RQID [facility] Last Admin: 09/15/18 07:45 Dose: 1 amp Buspirone HCl (Buspar -) 2.5 mg PO DAILY PRN PRN Reason: ANXIETY Docusate Sodium (Colace -) 100 mg PO DAILY PRN PRN Reason: CONSTIPATION Ferrous Sulfate (Feosol -) 325 mg PO BID [facility] Last Admin: 09/15/18 09:54 Dose: 325 mg Hydrocortisone (Hytone 0.5% Cream -) 1 applic TP Q12H PRN PRN Reason: rash Last Admin: 09/15/18 09:59 Dose: 1 applic Levothyroxine Sodium (Synthroid -) 50 mcg PO DAILY@0700 [facility] Methylprednisolone Sodium Succinate (Solu-Medrol -) 40 mg IVPUSH Q8H-IV [facility] Last Admin: 09/15/18 09:54 Dose: 40 mg Pantoprazole Sodium (Protonix -) 40 mg PO BID [facility] Last Admin: 09/15/18 09:54 Dose: 40 mg Quetiapine Fumarate (Seroquel -) 25 mg PO HS [facility] Sertraline HCl (Zoloft -) 100 mg PO DAILY [facility] Last Admin: 09/15/18 09:54 Dose: 100 mg - Objective Vital Signs: Vital Signs Temperature 98 F 09/15/18 05:36 Pulse Rate 69 09/15/18 05:36 Respiratory Rate 18 09/15/18 05:36 Blood Pressure 134/65 09/15/18 05:36 O2 Sat by Pulse Oximetry (%) 98 09/14/18 20:43 Constitutional: Yes: Calm, Cachectic Eyes: Yes: WNL HENT: Yes: WNL Neck: Yes: WNL Cardiovascular: Yes: Pulse Irregular, S1, S2 Respiratory: Yes: Rhonchi (SCATTERED BLANE RHONCHI) Gastrointestinal: Yes: Normal Bowel Sounds, Soft Extremities: Yes: WNL Edema: No Labs: CBC, BMP 09/14/18 06:30 09/14/18 06:30 Problem List - Problems (1) CHF (congestive heart failure) Code(s): I50.9 - HEART FAILURE, UNSPECIFIED (2) COPD exacerbation Code(s): J44.1 - CHRONIC OBSTRUCTIVE PULMONARY DISEASE W (ACUTE) EXACERBATION (3) Dementia Code(s): F03.90 - UNSPECIFIED DEMENTIA WITHOUT BEHAVIORAL DISTURBANCE (4) Hypothyroid Code(s): E03.9 - HYPOTHYROIDISM, UNSPECIFIED (5) Pneumonia Code(s): J18.9 - PNEUMONIA, UNSPECIFIED ORGANISM (6) Hypothyroidism Code(s): E03.9 - HYPOTHYROIDISM, UNSPECIFIED (7) Parkinson disease Code(s): G20 - PARKINSON'S DISEASE (8) Seizure disorder Code(s): G40.909 - EPILEPSY, UNSP, NOT INTRACTABLE, WITHOUT STATUS EPILEPTICUS (9) Weakness Code(s): R53.1 - WEAKNESS Assessment/Plan IMP DYSPNEA IMPROVING COPD EXACERBATION RECENT PNEUMONIA HTN DEMENTIA PARKINSONS DIFFUSE ERYTHEMATOUS MACULAR RASH LIKELY DRUG REACTION IMPROVING HYPOTHYROID PLAN IV MEDROL BROVANA D/C THEOPHYLLINE INHALED BRONCHODILATORS SUPPLEMENTAL O2 F/U CHEST X-RAYS DR SWARTZ Problem List - Problems (1) CHF (congestive heart failure) Code(s): I50.9 - HEART FAILURE, UNSPECIFIED (2) COPD exacerbation Code(s): J44.1 - CHRONIC OBSTRUCTIVE PULMONARY DISEASE W (ACUTE) EXACERBATION (3) Dementia Code(s): F03.90 - UNSPECIFIED DEMENTIA WITHOUT BEHAVIORAL DISTURBANCE (4) Hypothyroid Code(s): E03.9 - HYPOTHYROIDISM, UNSPECIFIED (5) Pneumonia Code(s): J18.9 - PNEUMONIA, UNSPECIFIED ORGANISM (6) Hypothyroidism Code(s): E03.9 - HYPOTHYROIDISM, UNSPECIFIED (7) Parkinson disease Code(s): G20 - PARKINSON'S DISEASE (8) Seizure disorder Code(s): G40.909 - EPILEPSY, UNSP, NOT INTRACTABLE, WITHOUT STATUS EPILEPTICUS (9) Weakness Code(s): R53.1 - WEAKNESS
--- NOTE | 2018-09-15 10:34 | PN ---
Physical Exam: SUBJECTIVE: Patient seen and examined at the bedside. denies pain, denies malaise. OBJECTIVE: rash slightly improving but still persists, [facility] to [facility]cp that makes home visits, information provided on discharge instructions. Vital Signs Period Temp Pulse Resp BP Sys/Riggins Pulse Ox Last 24 Hr 97.2 F-98.1 F 67-95 18-20 106-134/48-65 98 GENERAL: Awake, alert with history of dementia. her sister provides all of the history HEAD: Normal with no signs of trauma. EYES: Pupils equal, round and reactive to light, extraocular movements intact, sclera anicteric, conjunctiva clear. No lid lag. EARS, NOSE, THROAT: Ears normal, nares patent, oropharynx clear without exudates. Moist mucous membranes. NECK: Normal range of motion, supple without lymphadenopathy, JVD, or masses. LUNGS: crackles on upper and lobes of the right lung. left lung diminished. HEART: Regular rate and rhythm ABDOMEN: Soft, nontender, mildly distended, normoactive bowel sounds, no guarding, no rebound, no masses. MUSCULOSKELETAL: Normal range of motion at all joints. No bony deformities or tenderness. No CVA tenderness. UPPER EXTREMITIES: 2+ pulses, warm, well-perfused. No cyanosis. No clubbing. No peripheral edema. LOWER EXTREMITIES: 2+ pulses, warm, well-perfused. No calf tenderness. No peripheral edema. NEUROLOGICAL: clear speech, facial symmetry PSYCHIATRIC: Cooperative. Good eye contact. Appropriate mood and affect. SKIN: erythematous macular rash along front and back of torso and medial aspect of thighs - improving, but still persists Laboratory Results - last 24 hr 09/14/18 06:30 Neutrophils % (Manual) 95.0 H Band Neutrophils % 0.0 Lymphocytes % (Manual) 5.0 L D Monocytes % (Manual) 0 L D Eosinophils % (Manual) 0.0 Basophils % (Manual) 0.0 Myelocytes % (Man) 0 Promyelocytes % (Man) 0 Blast Cells % (Manual) 0 Metamyelocytes 0 Hypochromia 0 Toxic Granulation 0 Dohle Bodies 0 Platelet Estimate Normal Polychromasia 0 Poikilocytosis 0 Basophilic Stippling 0 Anisocytosis 0 Microcytosis 0 Macrocytosis 0 Spherocytes 0 Sickle Cells 0 Target Cells 0 Tear Drop Cells 0 Ovalocytes 0 Stomatocytes 0 Helmet Cells 0 [place] Bodies 0 [place] Rings 0 [place] Cells 0 Acanthocytes (Spur) 0 Rouleaux 0 Fragmented RBCs 0 Schistocytes 0 Active Medications Generic Name Dose Route Start Last Admin Trade Name Freq PRN Reason Stop Dose Admin Acetaminophen 650 mg 09/15/18 06:59 Tylenol - PO Q6H PRN PAIN LEVEL 7 - 10 Albuterol/Ipratropium 1 amp 09/15/18 10:45 Duoneb - NEB Q4H MISTI Arformoterol Tartrate 1 amp 09/15/18 20:00 Brovana (Restricted To Pulmonology/Resp) - NEB RBID MISTI Buspirone HCl 2.5 mg 09/15/18 06:59 Buspar - PO DAILY PRN ANXIETY Docusate Sodium 100 mg 09/15/18 06:59 Colace - PO DAILY PRN CONSTIPATION Ferrous Sulfate 325 mg 09/15/18 10:00 09/15/18 09:54 Feosol - PO 325 mg BID MISTI Administration Hydrocortisone 1 applic 09/15/18 06:59 09/15/18 09:59 Hytone 0.5% Cream - TP 1 applic Q12H PRN Administration rash Levothyroxine Sodium 50 mcg 09/15/18 07:00 Synthroid - PO DAILY@0700 MISTI Methylprednisolone Sodium Succinate 40 mg 09/15/18 10:00 09/15/18 09:54 Solu-Medrol - IVPUSH 40 mg Q8H-IV MISTI Administration Pantoprazole Sodium 40 mg 09/15/18 10:00 09/15/18 09:54 Protonix - PO 40 mg BID MISTI Administration Quetiapine Fumarate 25 mg 09/15/18 22:00 Seroquel - PO HS MISTI Sertraline HCl 100 mg 09/15/18 10:00 09/15/18 09:54 Zoloft - PO 100 mg DAILY MISTI Administration ASSESSMENT/PLAN: Patient is an 88 year old female with a significant past medical history of hypothyroidism, Parkinson's, dementia, anemia, ESBL UTIs, diastolic CHF, COPD, HTN and anemia. She presents to the ED with complaints of a diffused pink generalized rash that erupted yesterday after taking Augmentin for pneumonia Integumentary * skin rash, secondary to augmentin. drug allergy added to emar. On solumedrol No wheezing but has crackles on her right an left lung. breathing improving. * benadryl and hydrocortisone for rash. rash improving on upper back but persists on her lower legs. minimal improvement. derm consulted. Pneumonia * Patient was treated for zosyn on previous admission. Chest CTA with extensive bilateral chronic lung disease. Given one dose of Levaquin. Further antibiotics per ID. * COPD. start on duonebs. Seen by pulm, and now on solumedrol q6 Hiatal Hernia/Esophagitis * started on soft diet. PPI and antacid. No surgical interventions per sister. Chronic diastolic HF * Monitor intake and output, avoid fluid overload. monitor. Parkinsons disease * Patient was weaned off Parkinsons medications by her primary care provider. Rule out GI bleed * stool occult negative. hmg/hct stabe. protonix daily Hypertension * stable. monitor. Hypothyroidsm * continue Synthroid. ESBL UTIs, history * ua/uc ordered. fen oral intake monitor electrolytes soft diet honey thick fluids prophy SCDs protonix Visit type - Emergency Visit Emergency Visit: Yes ED Registration Date: 09/12/18 Care time: The patient presented to the Emergency Department on the above date and was hospitalized for further evaluation of their emergent condition. - New Patient This patient is new to me today: No - Critical Care Critical Care patient: No - Discharge Referral [facility]erred to [facility] Med P.C.: No
[2018-09-15] MEDS: ALBUTEROL SO4 2.5/IPRATROPIUM 0.5 INH SOL 3 ML VIAL.NEB. NEB SCH ×3 (11:08→20:46)
--- NOTE | 2018-09-15 11:47 | PN ---
Progress Note, Physician Chief Complaint: PNA History of Present Illness: off tele, awaiting bed sob much improved vs DOA no cp, palpit, syncope - Current Medication List Current Medications: Active Medications Acetaminophen (Tylenol -) 650 mg PO Q6H PRN PRN Reason: PAIN LEVEL 7 - 10 Albuterol/Ipratropium (Duoneb -) 1 amp NEB RQ4H [facility] Last Admin: 09/15/18 11:08 Dose: 1 amp Arformoterol Tartrate (Brovana (Restricted To Pulmonology/Resp) -) 1 amp NEB RBID MISTI Buspirone HCl (Buspar -) 2.5 mg PO DAILY PRN PRN Reason: ANXIETY Docusate Sodium (Colace -) 100 mg PO DAILY PRN PRN Reason: CONSTIPATION Ferrous Sulfate (Feosol -) 325 mg PO BID [facility] Last Admin: 09/15/18 09:54 Dose: 325 mg Hydrocortisone (Hytone 0.5% Cream -) 1 applic TP Q12H PRN PRN Reason: rash Last Admin: 09/15/18 09:59 Dose: 1 applic Levothyroxine Sodium (Synthroid -) 50 mcg PO DAILY@0700 [facility] Methylprednisolone Sodium Succinate (Solu-Medrol -) 40 mg IVPUSH Q8H-IV [facility] Last Admin: 09/15/18 09:54 Dose: 40 mg Pantoprazole Sodium (Protonix -) 40 mg PO BID [facility] Last Admin: 09/15/18 09:54 Dose: 40 mg Quetiapine Fumarate (Seroquel -) 25 mg PO HS [facility] Sertraline HCl (Zoloft -) 100 mg PO DAILY [facility] Last Admin: 09/15/18 09:54 Dose: 100 mg - Objective Vital Signs: Vital Signs Temperature 98 F 09/15/18 10:00 Pulse Rate 67 09/15/18 10:00 Respiratory Rate 18 09/15/18 10:00 Blood Pressure 127/51 L 09/15/18 10:00 O2 Sat by Pulse Oximetry (%) 98 09/15/18 09:00 Constitutional: Yes: Well Nourished, No Distress, Calm, Thin Cardiovascular: Yes: Regular Rate and Rhythm, Murmur, S1, S2. No: JVD, Gallop Respiratory: Yes: Regular, Rales (bases). No: Wheezes Extremities: No: Cold Edema: No Neurological: Yes: Alert. No: Seizure Psychiatric: No: Agitated Labs: CBC, BMP 09/14/18 06:30 09/14/18 06:30 Assessment/Plan echo 08/2015: nl lv/rv, mild mr/tr, nl rvsp ecg: sr, nl intervals, no ischemic changes ct chest: no chf a/p: 88 f hx parkinsons, dementia, dchf, htn, hypothyroid, cad (per charts, no further details, pt denies but poor historian), here with rash, pna. pna: -abx per ID/pmd chronic diastolic chf: -echo 08/2015: nl lv/rv, mild mr/tr, nl rvsp. check updated echo. -appearseuvolemic off diuretic. ct chest shows no chf. bnp is wnl. would continue to hold off on diuretics for now. htn: -bp stable off meds, monitor for now cad: -per charts, no further details, pt denies but poor historian -no signs acs -prior echo showed normal lvef, no WMA's -seems stable
--- NOTE | 2018-09-15 13:16 | ECHO ---
Name: NASIMAFSHAN Exam:Adult Echocardiogram Study Date: 09/15/2018 11:02 AM Age: 88 yrs Reason For Study: pneumonia Height: 61 in Weight: 81 lb BSA: 1.3 m2 MMode/2D Measurements & Calculations IVSd: 0.66 cm Ao root diam: 2.5 cm LVIDd: 4.4 cm LA dimension: 3.2 cm LVIDs: 3.1 cm LVPWd: 0.97 cm EDV(Teich): 88.8 ml LVOT diam: 1.9 cm ESV(Teich): 37.4 ml TAPSE: 2.1 cm RV S Venkatesh: 10.0 cm/sec Doppler Measurements & Calculations MV E max venkatesh: 81.5 cm/sec Med Peak E' Venkatesh: 7.0 cm/sec MV A max venkatesh: 105.3 cm/sec Med E/e': 11.7 MV E/A: 0.77 Lat Peak E' Venkatesh: 6.7 cm/sec Lat E/e': 12.1 Procedure A complete two-dimensional transthoracic echocardiogram was performed (2D, M-mode, Doppler and color flow Doppler). Left Ventricle The left ventricle is normal in size. Left ventricular systolic function is normal. Ejection Fraction = 60- 65%. No regional wall motion abnormalities noted. Right Ventricle The right ventricle is normal size. The right ventricular systolic function is normal. RV systolic TD I is 10 cm/s. Atria The left atrial size is normal. Right atrial size is normal. Mitral Valve The mitral valve is normal in structure and function. There is no mitral regurgitation noted. Tricuspid Valve The tricuspid valve is normal in structure and function. No tricuspid regurgitation. Aortic Valve The aortic valve is normal in structure and function. No aortic regurgitation is present. Pulmonic Valve The pulmonic valve is not well visualized. Great Vessels The aortic root is normal size. Pericardium/Pleura There is no pericardial effusion. Interpretation Summary The left ventricle is normal in size. Left ventricular systolic function is normal. No regional wall motion abnormalities noted. Ejection Fraction = 60-65%. The right ventricular systolic function is normal. The left atrial size is normal. Right atrial size is normal. No significant valvular regurgitations are seen There is no pericardial effusion. Previous study is not available for comparison James Maravilla MD 09/15/2018 01:15 PM
--- NOTE | 2018-09-15 15:13 | PN ---
Progress Note, Physician History of Present Illness: patient stable doing well family in room - Current Medication List Current Medications: Active Medications Acetaminophen (Tylenol -) 650 mg PO Q6H PRN PRN Reason: PAIN LEVEL 7 - 10 Albuterol/Ipratropium (Duoneb -) 1 amp NEB RQ4H [facility] Last Admin: 09/15/18 11:08 Dose: 1 amp Arformoterol Tartrate (Brovana (Restricted To Pulmonology/Resp) -) 1 amp NEB RBID [facility] Buspirone HCl (Buspar -) 2.5 mg PO DAILY PRN PRN Reason: ANXIETY Docusate Sodium (Colace -) 100 mg PO DAILY PRN PRN Reason: CONSTIPATION Ferrous Sulfate (Feosol -) 325 mg PO BID [facility] Last Admin: 09/15/18 09:54 Dose: 325 mg Hydrocortisone (Hytone 0.5% Cream -) 1 applic TP Q12H PRN PRN Reason: rash Last Admin: 09/15/18 09:59 Dose: 1 applic Levothyroxine Sodium (Synthroid -) 50 mcg PO DAILY@0700 [facility] Methylprednisolone Sodium Succinate (Solu-Medrol -) 40 mg IVPUSH Q8H-IV [facility] Last Admin: 09/15/18 09:54 Dose: 40 mg Pantoprazole Sodium (Protonix -) 40 mg PO BID [facility] Last Admin: 09/15/18 09:54 Dose: 40 mg Quetiapine Fumarate (Seroquel -) 25 mg PO HS [facility] Sertraline HCl (Zoloft -) 100 mg PO DAILY [facility] Last Admin: 09/15/18 09:54 Dose: 100 mg - Objective Vital Signs: Vital Signs Temperature 98.1 F 09/15/18 14:31 Pulse Rate 85 09/15/18 14:31 Respiratory Rate 18 09/15/18 14:31 Blood Pressure 116/56 L 09/15/18 14:31 O2 Sat by Pulse Oximetry (%) 98 09/15/18 09:00 Constitutional: Yes: No Distress, Calm Cardiovascular: Yes: Regular Rate and Rhythm Respiratory: Yes: Regular, CTA Bilaterally Gastrointestinal: Yes: Normal Bowel Sounds, Soft Musculoskeletal: Yes: WNL Extremities: Yes: Other Neurological: Yes: Alert, Oriented Psychiatric: Yes: Alert, Oriented Labs: CBC, BMP 09/14/18 06:30 09/14/18 06:30 Assessment/Plan Assessment/Plan Problem List - Problems (1) Pneumonia Code(s): J18.9 - PNEUMONIA, UNSPECIFIED ORGANISM (2) Anemia Code(s): D64.9 - ANEMIA, UNSPECIFIED Qualifiers: Other causes of anemia: other cause, not classified Qualified Code(s): D64.89 - Other specified anemias (3) CAD (coronary artery disease) Code(s): I25.10 - ATHSCL HEART DISEASE OF [place] CORONARY ARTERY W/O ANG PCTRS (4) CHF (congestive heart failure) Code(s): I50.9 - HEART FAILURE, UNSPECIFIED Qualifiers: Qualified Code(s): I50.9 - Heart failure, unspecified (5) Diverticula of colon Code(s): K57.30 - DVRTCLOS OF LG INT W/O PERFORATION OR ABSCESS W/O BLEEDING (6) Hiatal hernia Code(s): K44.9 - DIAPHRAGMATIC HERNIA WITHOUT OBSTRUCTION OR GANGRENE (7) Hypothyroidism Code(s): E03.9 - HYPOTHYROIDISM, UNSPECIFIED (8) Parkinson disease Code(s): G20 - PARKINSON'S DISEASE (9) Seizure disorder Code(s): G40.909 - EPILEPSY, UNSP, NOT INTRACTABLE, WITHOUT STATUS EPILEPTICUS 10 rash diffuse plan rash improving monitor off of abx rest as per the team patient improving
[2018-09-15] MEDS: ARFORMOTEROL TARTRATE 15 MCG/2 ML VIAL NEB SCH (20:56)
[2018-09-15] MEDS: QUEtiapine FUMARATE 25 MG TABLET (FP) PO SCH (21:37)
[2018-09-16] MEDS: ALBUTEROL SO4 2.5/IPRATROPIUM 0.5 INH SOL 3 ML VIAL.NEB. NEB SCH ×4 (00:43→11:29)
[2018-09-16] MEDS: methylPREDNISolone NA SUCC 40 MG/1 ML VIAL IVPUSH SCH ×3 (01:04→21:39)
[2018-09-16] MEDS: HYDROCORTISONE 0.5% TOPICAL CREAM 30 GM TUBE TP PRN (06:02)
[2018-09-16] MEDS: LEVOTHYROXINE NA 50 MCG TABLET (FP) PO SCH (06:26)
[2018-09-16] MEDS: ARFORMOTEROL TARTRATE 15 MCG/2 ML VIAL NEB SCH ×2 (07:28→20:40)
[2018-09-16 07:45] LABS: HEMATOCRIT 33.6 % (32.4-45.2); HEMOGLOBIN 11.2 GM/dL (10.7-15.3); LYMPH % 7.5 % (8-40); MCH 28.4 pg (25.7-33.7); MCHC 33.2 g/dl (32.0-36.0); MEAN CELL VOLUME 85.7 fl (80-96); MEAN PLT VOLUME 7.9 fl (7.5-11.1); MONO % 2.4 % (3.8-10.2); NEUT % 90.1 % (42.8-82.8); PLATELET COUNT 419 K/MM3 (134-434); RBC 3.93 M/mm3 (3.60-5.2); WHITE BLOOD COUNT 15.7 K/mm3 (4.0-10.0)
[2018-09-16 08:17] LABS: ALBUMIN 2.7 g/dl (3.4-5.0); ALK PHOS 80 U/L (45-117); ANION GAP 7 MMOL/L (8-16); BILIRUBIN,TOTAL 0.1 mg/dL (0.2-1); BLOOD UREA NITROGEN 20 mg/dL (7-18); CALCIUM 8.6 mg/dL (8.5-10.1); CHLORIDE 103 mmol/L (98-107); CO2 27 mmol/L (21-32); CREATININE 0.7 mg/dL (0.55-1.3); GLUCOSE,RANDOM 108 mg/dL (74-106); POTASSIUM 4.7 mmol/L (3.5-5.1); SGOT/AST 10 U/L (15-37); SGPT/ALT 21 U/L (13-61); SODIUM 137 mmol/L (136-145); TOT PROT 5.4 g/dl (6.4-8.2)
--- NOTE | 2018-09-16 09:32 | PN ---
Progress Note (short form) - Note Progress Note: Chief Complaint: PNA History of Present Illness: sob improving. no cp, palps, dizziness, lightheadedness Current Medications Acetaminophen (Tylenol -) 650 mg PO Q6H PRN PRN Reason: PAIN LEVEL 7 - 10 Albuterol/Ipratropium (Duoneb -) 1 amp NEB RQ4H [facility] Last Admin: 09/16/18 07:41 Dose: 1 amp Arformoterol Tartrate (Brovana (Restricted To Pulmonology/Resp) -) 1 amp NEB RBID [facility] Last Admin: 09/16/18 07:28 Dose: 1 amp Buspirone HCl (Buspar -) 2.5 mg PO DAILY PRN PRN Reason: ANXIETY Docusate Sodium (Colace -) 100 mg PO DAILY PRN PRN Reason: CONSTIPATION Ferrous Sulfate (Feosol -) 325 mg PO BID [facility] Last Admin: 09/15/18 21:37 Dose: 325 mg Hydrocortisone (Hytone 0.5% Cream -) 1 applic TP Q12H PRN PRN Reason: rash Last Admin: 09/16/18 06:02 Dose: 1 applic Levothyroxine Sodium (Synthroid -) 50 mcg PO DAILY@0700 [facility] Last Admin: 09/16/18 06:26 Dose: 50 mcg Methylprednisolone Sodium Succinate (Solu-Medrol -) 40 mg IVPUSH Q8H-IV [facility] Last Admin: 09/16/18 01:04 Dose: 40 mg Pantoprazole Sodium (Protonix -) 40 mg PO BID [facility] Last Admin: 09/15/18 21:37 Dose: 40 mg Quetiapine Fumarate (Seroquel -) 25 mg PO HS [facility] Last Admin: 09/15/18 21:37 Dose: 25 mg Sertraline HCl (Zoloft -) 100 mg PO DAILY [facility] Last Admin: 09/15/18 09:54 Dose: 100 mg - Objective Vital Signs Period Temp Pulse Resp BP Sys/Riggins Pulse Ox Last 24 Hr 97.6 F-98.1 F 60-85 18-20 116-136/51-56 98 Constitutional: Yes: Well Nourished, No Distress, Calm, Thin Cardiovascular: Yes: Regular Rate and Rhythm, Murmur, S1, S2. No: JVD, Gallop Respiratory: Yes: Regular, Rales (bases). No: Wheezes Extremities: No: Cold Edema: No Neurological: Yes: Alert. No: Seizure Psychiatric: No: Agitated Assessment/Plan echo 08/2015: nl lv/rv, mild mr/tr, nl rvsp ecg: sr, nl intervals, no ischemic changes ct chest: no chf echo 09/2018 nl LV/RV function, no significant valvular pathology a/p: 88 f hx parkinsons, dementia, dchf, htn, hypothyroid, cad (per charts, no further details, pt denies but poor historian), here with rash, pna. pna: -abx per ID/pmd chronic diastolic chf: -echo shows nl LV/RV function -appears euvolemic off diuretic. ct chest shows no chf. bnp is wnl. - - continue to hold off on diuretics for now. htn: -bp stable off meds, monitor for now cad: -per charts, no further details, pt denies but poor historian -no signs acs - echo shows normal lvef, no WMA's -seems stable
[2018-09-16] MEDS: FERROUS SO4 325 MG TABLET (FP) PO SCH ×2 (10:12→21:39)
[2018-09-16] MEDS: PANTOPRAZOLE 40 MG TABLET (FP) PO SCH ×2 (10:13→21:39)
[2018-09-16] MEDS: SERTRALINE HCL 50 MG TABLET (FP) PO SCH (10:13)
--- NOTE | 2018-09-16 11:39 | PN ---
Progress Note, Physician History of Present Illness: pulmonary alert,less dyspneic ,-cp - Current Medication List Current Medications: Active Medications Acetaminophen (Tylenol -) 650 mg PO Q6H PRN PRN Reason: PAIN LEVEL 7 - 10 Albuterol/Ipratropium (Duoneb -) 1 amp NEB RQ4H [facility] Last Admin: 09/16/18 11:29 Dose: Not Given Arformoterol Tartrate (Brovana (Restricted To Pulmonology/Resp) -) 1 amp NEB RBID [facility] Last Admin: 09/16/18 07:28 Dose: 1 amp Buspirone HCl (Buspar -) 2.5 mg PO DAILY PRN PRN Reason: ANXIETY Docusate Sodium (Colace -) 100 mg PO DAILY PRN PRN Reason: CONSTIPATION Ferrous Sulfate (Feosol -) 325 mg PO BID [facility] Last Admin: 09/16/18 10:12 Dose: 325 mg Hydrocortisone (Hytone 0.5% Cream -) 1 applic TP Q12H PRN PRN Reason: rash Last Admin: 09/16/18 06:02 Dose: 1 applic Levothyroxine Sodium (Synthroid -) 50 mcg PO DAILY@0700 [facility] Last Admin: 09/16/18 06:26 Dose: 50 mcg Methylprednisolone Sodium Succinate (Solu-Medrol -) 40 mg IVPUSH Q8H-IV [facility] Last Admin: 09/16/18 10:13 Dose: 40 mg Pantoprazole Sodium (Protonix -) 40 mg PO BID [facility] Last Admin: 09/16/18 10:13 Dose: 40 mg Quetiapine Fumarate (Seroquel -) 25 mg PO HS [facility] Last Admin: 09/15/18 21:37 Dose: 25 mg Sertraline HCl (Zoloft -) 100 mg PO DAILY [facility] Last Admin: 09/16/18 10:13 Dose: 100 mg - Objective Vital Signs: Vital Signs Temperature 97.7 F 09/16/18 09:00 Pulse Rate 77 09/16/18 09:00 Respiratory Rate 18 09/16/18 09:00 Blood Pressure 135/71 09/16/18 09:00 O2 Sat by Pulse Oximetry (%) 99 09/16/18 09:00 Constitutional: Yes: Calm, Cachectic Eyes: Yes: WNL HENT: Yes: WNL Neck: Yes: WNL Cardiovascular: Yes: Regular Rate and Rhythm, S1, S2 Respiratory: Yes: Wheezes (scattered maureen wheezes and rales) Gastrointestinal: Yes: Normal Bowel Sounds, Soft Extremities: Yes: WNL Edema: No Labs: CBC, BMP 09/16/18 06:45 09/16/18 06:45 Problem List - Problems (1) CHF (congestive heart failure) Code(s): I50.9 - HEART FAILURE, UNSPECIFIED (2) COPD exacerbation Code(s): J44.1 - CHRONIC OBSTRUCTIVE PULMONARY DISEASE W (ACUTE) EXACERBATION (3) Dementia Code(s): F03.90 - UNSPECIFIED DEMENTIA WITHOUT BEHAVIORAL DISTURBANCE (4) Hypothyroid Code(s): E03.9 - HYPOTHYROIDISM, UNSPECIFIED (5) Pneumonia Code(s): J18.9 - PNEUMONIA, UNSPECIFIED ORGANISM (6) Hypothyroidism Code(s): E03.9 - HYPOTHYROIDISM, UNSPECIFIED (7) Parkinson disease Code(s): G20 - PARKINSON'S DISEASE (8) Seizure disorder Code(s): G40.909 - EPILEPSY, UNSP, NOT INTRACTABLE, WITHOUT STATUS EPILEPTICUS (9) Weakness Code(s): R53.1 - WEAKNESS Assessment/Plan IMP DYSPNEA IMPROVING COPD EXACERBATION RECENT PNEUMONIA HTN DEMENTIA PARKINSONS DIFFUSE ERYTHEMATOUS MACULAR RASH LIKELY DRUG REACTION IMPROVING HYPOTHYROID PLAN STEROID TAPER BROVANA D/C THEOPHYLLINE INHALED BRONCHODILATORS SUPPLEMENTAL O2 F/U CHEST X-RAYS DR SWARTZ Problem List - Problems (1) CHF (congestive heart failure) Code(s): I50.9 - HEART FAILURE, UNSPECIFIED (2) COPD exacerbation Code(s): J44.1 - CHRONIC OBSTRUCTIVE PULMONARY DISEASE W (ACUTE) EXACERBATION (3) Dementia Code(s): F03.90 - UNSPECIFIED DEMENTIA WITHOUT BEHAVIORAL DISTURBANCE (4) Hypothyroid Code(s): E03.9 - HYPOTHYROIDISM, UNSPECIFIED (5) Pneumonia Code(s): J18.9 - PNEUMONIA, UNSPECIFIED ORGANISM (6) Hypothyroidism Code(s): E03.9 - HYPOTHYROIDISM, UNSPECIFIED (7) Parkinson disease Code(s): G20 - PARKINSON'S DISEASE (8) Seizure disorder Code(s): G40.909 - EPILEPSY, UNSP, NOT INTRACTABLE, WITHOUT STATUS EPILEPTICUS (9) Weakness Code(s): R53.1 - WEAKNESS
[2018-09-16] MEDS ORDERED: ALBUTEROL SO4 2.5/IPRATROPIUM 0.5 INH SOL 3 ML VIAL.NEB. NEB PRN (11:41)
--- NOTE | 2018-09-16 14:24 | PN ---
Progress Note, Physician History of Present Illness: continues to improve rash improved - Current Medication List Current Medications: Active Medications Acetaminophen (Tylenol -) 650 mg PO Q6H PRN PRN Reason: PAIN LEVEL 7 - 10 Albuterol/Ipratropium (Duoneb -) 1 amp NEB Q4H PRN PRN Reason: SHORTNESS OF BREATH Arformoterol Tartrate (Brovana (Restricted To Pulmonology/Resp) -) 1 amp NEB RBID [facility] Last Admin: 09/16/18 07:28 Dose: 1 amp Buspirone HCl (Buspar -) 2.5 mg PO DAILY PRN PRN Reason: ANXIETY Docusate Sodium (Colace -) 100 mg PO DAILY PRN PRN Reason: CONSTIPATION Ferrous Sulfate (Feosol -) 325 mg PO BID [facility] Last Admin: 09/16/18 10:12 Dose: 325 mg Hydrocortisone (Hytone 0.5% Cream -) 1 applic TP Q12H PRN PRN Reason: rash Last Admin: 09/16/18 06:02 Dose: 1 applic Levothyroxine Sodium (Synthroid -) 50 mcg PO DAILY@0700 [facility] Last Admin: 09/16/18 06:26 Dose: 50 mcg Methylprednisolone Sodium Succinate (Solu-Medrol -) 40 mg IVPUSH BID [facility] Pantoprazole Sodium (Protonix -) 40 mg PO BID [facility] Last Admin: 09/16/18 10:13 Dose: 40 mg Quetiapine Fumarate (Seroquel -) 25 mg PO HS [facility] Last Admin: 09/15/18 21:37 Dose: 25 mg Sertraline HCl (Zoloft -) 100 mg PO DAILY [facility] Last Admin: 09/16/18 10:13 Dose: 100 mg - Objective Vital Signs: Vital Signs Temperature 97.7 F 09/16/18 09:00 Pulse Rate 77 09/16/18 09:00 Respiratory Rate 18 09/16/18 09:00 Blood Pressure 135/71 09/16/18 09:00 O2 Sat by Pulse Oximetry (%) 99 09/16/18 09:00 Constitutional: Yes: No Distress, Calm Cardiovascular: Yes: Regular Rate and Rhythm Respiratory: Yes: Regular, CTA Bilaterally Gastrointestinal: Yes: Normal Bowel Sounds, Soft Musculoskeletal: Yes: WNL Extremities: Yes: Other Neurological: Yes: Alert, Oriented Psychiatric: Yes: Alert, Oriented Labs: CBC, BMP 09/16/18 06:45 09/16/18 06:45 Assessment/Plan Assessment/Plan Problem List - Problems (1) Pneumonia Code(s): J18.9 - PNEUMONIA, UNSPECIFIED ORGANISM (2) Anemia Code(s): D64.9 - ANEMIA, UNSPECIFIED Qualifiers: Other causes of anemia: other cause, not classified Qualified Code(s): D64.89 - Other specified anemias (3) CAD (coronary artery disease) Code(s): I25.10 - ATHSCL HEART DISEASE OF [place] CORONARY ARTERY W/O ANG PCTRS (4) CHF (congestive heart failure) Code(s): I50.9 - HEART FAILURE, UNSPECIFIED Qualifiers: Qualified Code(s): I50.9 - Heart failure, unspecified (5) Diverticula of colon Code(s): K57.30 - DVRTCLOS OF LG INT W/O PERFORATION OR ABSCESS W/O BLEEDING (6) Hiatal hernia Code(s): K44.9 - DIAPHRAGMATIC HERNIA WITHOUT OBSTRUCTION OR GANGRENE (7) Hypothyroidism Code(s): E03.9 - HYPOTHYROIDISM, UNSPECIFIED (8) Parkinson disease Code(s): G20 - PARKINSON'S DISEASE (9) Seizure disorder Code(s): G40.909 - EPILEPSY, UNSP, NOT INTRACTABLE, WITHOUT STATUS EPILEPTICUS 10 rash diffuse plan rash improving monitor off of abx rest as per the team patient improving physio
--- NOTE | 2018-09-16 20:52 | PN ---
Progress Note, Physician Chief Complaint: PNA History of Present Illness: 24 HR EVENTS: -awaiting derm consult for rash 2/2 augmentin -pt pulm status has improved on IV steroids - Current Medication List Current Medications: Active Medications Acetaminophen (Tylenol -) 650 mg PO Q6H PRN PRN Reason: PAIN LEVEL 7 - 10 Albuterol/Ipratropium (Duoneb -) 1 amp NEB Q4H PRN PRN Reason: SHORTNESS OF BREATH Arformoterol Tartrate (Brovana (Restricted To Pulmonology/Resp) -) 1 amp NEB RBID [facility] Last Admin: 09/16/18 07:28 Dose: 1 amp Buspirone HCl (Buspar -) 2.5 mg PO DAILY PRN PRN Reason: ANXIETY Docusate Sodium (Colace -) 100 mg PO DAILY PRN PRN Reason: CONSTIPATION Ferrous Sulfate (Feosol -) 325 mg PO BID [facility] Last Admin: 09/16/18 10:12 Dose: 325 mg Hydrocortisone (Hytone 0.5% Cream -) 1 applic TP Q12H PRN PRN Reason: rash Last Admin: 09/16/18 06:02 Dose: 1 applic Levothyroxine Sodium (Synthroid -) 50 mcg PO DAILY@0700 [facility] Last Admin: 09/16/18 06:26 Dose: 50 mcg Methylprednisolone Sodium Succinate (Solu-Medrol -) 40 mg IVPUSH BID [facility] Pantoprazole Sodium (Protonix -) 40 mg PO BID [facility] Last Admin: 09/16/18 10:13 Dose: 40 mg Quetiapine Fumarate (Seroquel -) 25 mg PO HS [facility] Last Admin: 09/15/18 21:37 Dose: 25 mg Sertraline HCl (Zoloft -) 100 mg PO DAILY [facility] Last Admin: 09/16/18 10:13 Dose: 100 mg - Objective Vital Signs: Vital Signs Temperature 98.0 F 09/16/18 18:00 Pulse Rate 59 L 09/16/18 18:00 Respiratory Rate 20 09/16/18 18:00 Blood Pressure 126/56 L 09/16/18 18:00 O2 Sat by Pulse Oximetry (%) 99 09/16/18 09:00 Constitutional: Yes: No Distress, Calm Eyes: Yes: Conjunctiva Clear HENT: Yes: Atraumatic, Normocephalic Neck: Yes: Supple Cardiovascular: Yes: Regular Rate and Rhythm Respiratory: Yes: Diminished Gastrointestinal: Yes: Normal Bowel Sounds, Soft ...Rectal Exam: Yes: Deferred Musculoskeletal: Yes: Joint Stiffness, Muscle Weakness Extremities: Yes: Cool Edema: No Peripheral Pulses WNL: Yes Peripheral Pulses: Left Radial: 2+, Right Radial: 2+ Integumentary: Yes: Rash (pink partially blanceable rash to torso and extremities down to knees) Neurological: Yes: Alert ...Motor Strength: LLE (decreased motor strength), RLE Psychiatric: Yes: Alert Labs: CBC, BMP 09/16/18 06:45 09/16/18 06:45 Problem List - Problems (1) COPD exacerbation Assessment/Plan: continue IV steroids, weaned from TID to BID today brovana BID NC to maintain O2 sat > 90%. Code(s): J44.1 - CHRONIC OBSTRUCTIVE PULMONARY DISEASE W (ACUTE) EXACERBATION (2) Dementia Assessment/Plan: seroquel 25mg qhs Code(s): F03.90 - UNSPECIFIED DEMENTIA WITHOUT BEHAVIORAL DISTURBANCE (3) Hypothyroid Assessment/Plan: c/w synthroid Code(s): E03.9 - HYPOTHYROIDISM, UNSPECIFIED (4) Anxiety and depression Assessment/Plan: buspar 2.5mg daily zoloft 100mg daily Code(s): F41.9 - ANXIETY DISORDER, UNSPECIFIED; F32.9 - MAJOR DEPRESSIVE DISORDER, SINGLE EPISODE, UNSPECIFIED Impression/Plan Impression/Plan: FEN: soft diet honey thick fluids DVT PPX: SCDs GI PPX: PPI Bowel regimen with senna and colace Visit type - Emergency Visit Emergency Visit: Yes ED Registration Date: 09/12/18 Care time: The patient presented to the Emergency Department on the above date and was hospitalized for further evaluation of their emergent condition. - New Patient This patient is new to me today: Yes Date on this admission: 09/16/18 - Critical Care Critical Care patient: No - Discharge Referral Referred to [facility] Med P.C.: No
[2018-09-16] MEDS: QUEtiapine FUMARATE 25 MG TABLET (FP) PO SCH (21:39)
[2018-09-17] MEDS: LEVOTHYROXINE NA 50 MCG TABLET (FP) PO SCH (06:19)
[2018-09-17] MEDS: ARFORMOTEROL TARTRATE 15 MCG/2 ML VIAL NEB SCH (07:56)
[2018-09-17 09:27] LABS: BASO % 0.2 % (0-2.0); HEMATOCRIT 36.9 % (32.4-45.2); HEMOGLOBIN 12.3 GM/dL (10.7-15.3); LYMPH % 16.2 % (8-40); MCH 28.7 pg (25.7-33.7); MCHC 33.3 g/dl (32.0-36.0); MEAN CELL VOLUME 86.3 fl (80-96); MEAN PLT VOLUME 7.7 fl (7.5-11.1); NEUT % 77.6 % (42.8-82.8); PLATELET COUNT 432 K/MM3 (134-434); RBC 4.28 M/mm3 (3.60-5.2); RDW 16.7 % (11.6-15.6)
--- NOTE | 2018-09-17 09:28 | PN ---
Progress Note (short form) - Note Progress Note: Chief Complaint: PNA History of Present Illness: no cp, palps, dizziness, lightheadedness, sob Current Medications Acetaminophen (Tylenol -) 650 mg PO Q6H PRN PRN Reason: PAIN LEVEL 7 - 10 Albuterol/Ipratropium (Duoneb -) 1 amp NEB Q4H PRN PRN Reason: SHORTNESS OF BREATH Arformoterol Tartrate (Brovana (Restricted To Pulmonology/Resp) -) 1 amp NEB RBID [facility] Last Admin: 09/17/18 07:56 Dose: 1 amp Buspirone HCl (Buspar -) 2.5 mg PO DAILY PRN PRN Reason: ANXIETY Docusate Sodium (Colace -) 100 mg PO DAILY PRN PRN Reason: CONSTIPATION Ferrous Sulfate (Feosol -) 325 mg PO BID [facility] Last Admin: 09/16/18 21:39 Dose: 325 mg Hydrocortisone (Hytone 0.5% Cream -) 1 applic TP Q12H PRN PRN Reason: rash Last Admin: 09/16/18 06:02 Dose: 1 applic Levothyroxine Sodium (Synthroid -) 50 mcg PO DAILY@0700 [facility] Last Admin: 09/17/18 06:19 Dose: 50 mcg Methylprednisolone Sodium Succinate (Solu-Medrol -) 40 mg IVPUSH BID [facility] Last Admin: 09/16/18 21:39 Dose: 40 mg Pantoprazole Sodium (Protonix -) 40 mg PO BID [facility] Last Admin: 09/16/18 21:39 Dose: 40 mg Quetiapine Fumarate (Seroquel -) 25 mg PO HS [facility] Last Admin: 09/16/18 21:39 Dose: 25 mg Sertraline HCl (Zoloft -) 100 mg PO DAILY [facility] Last Admin: 09/16/18 10:13 Dose: 100 mg - Objective Vital Signs Period Temp Pulse Resp BP Sys/Riggins Pulse Ox Last 24 Hr 97.4 F-98.9 F 59-71 18-20 116-132/54-67 98 Constitutional: Yes: Well Nourished, No Distress, Calm, Thin Cardiovascular: Yes: Regular Rate and Rhythm, Murmur, S1, S2. No: JVD, Gallop Respiratory: Yes: Regular, Rales (bases). No: Wheezes Extremities: No: Cold Edema: No Neurological: Yes: Alert. No: Seizure Psychiatric: No: Agitated Assessment/Plan echo 08/2015: nl lv/rv, mild mr/tr, nl rvsp ecg: sr, nl intervals, no ischemic changes ct chest: no chf echo 09/2018 nl LV/RV function, no significant valvular pathology a/p: 88 f hx parkinsons, dementia, dchf, htn, hypothyroid, cad (per charts, no further details, pt denies but poor historian), here with rash, pna. pna: -abx per ID/pmd chronic diastolic chf: -echo shows nl LV/RV function -appears euvolemic off diuretic. ct chest shows no chf. bnp is wnl. - continue to hold off on diuretics htn: -bp stable off meds, monitor for now cad: -per charts, no further details, pt denies but poor historian -no signs acs - echo shows normal lvef, no WMA's -seems stable
[2018-09-17] MEDS: SERTRALINE HCL 50 MG TABLET (FP) PO SCH (09:32)
[2018-09-17] MEDS: methylPREDNISolone NA SUCC 40 MG/1 ML VIAL IVPUSH SCH (09:32)
[2018-09-17] MEDS: PANTOPRAZOLE 40 MG TABLET (FP) PO SCH (09:32)
[2018-09-17] MEDS: FERROUS SO4 325 MG TABLET (FP) PO SCH (09:32)
[2018-09-17 09:56] LABS: ANION GAP 8 MMOL/L (8-16); BLOOD UREA NITROGEN 23 mg/dL (7-18); CALCIUM 8.6 mg/dL (8.5-10.1); CHLORIDE 103 mmol/L (98-107); CO2 28 mmol/L (21-32); CREATININE 0.7 mg/dL (0.55-1.3); GLUCOSE,RANDOM 105 mg/dL (74-106); MAGNESIUM 2.1 mg/dL (1.8-2.4); SODIUM 139 mmol/L (136-145)
--- NOTE | 2018-09-17 10:29 | PN ---
Progress Note, Physician History of Present Illness: PULMONARY ALERT,COMFORTABLE,-RESP DISTRESS. - Current Medication List Current Medications: Active Medications Acetaminophen (Tylenol -) 650 mg PO Q6H PRN PRN Reason: PAIN LEVEL 7 - 10 Albuterol/Ipratropium (Duoneb -) 1 amp NEB Q4H PRN PRN Reason: SHORTNESS OF BREATH Arformoterol Tartrate (Brovana (Restricted To Pulmonology/Resp) -) 1 amp NEB RBID [facility] Last Admin: 09/17/18 07:56 Dose: 1 amp Buspirone HCl (Buspar -) 2.5 mg PO DAILY PRN PRN Reason: ANXIETY Docusate Sodium (Colace -) 100 mg PO DAILY PRN PRN Reason: CONSTIPATION Ferrous Sulfate (Feosol -) 325 mg PO BID [facility] Last Admin: 09/17/18 09:32 Dose: 325 mg Hydrocortisone (Hytone 0.5% Cream -) 1 applic TP Q12H PRN PRN Reason: rash Last Admin: 09/16/18 06:02 Dose: 1 applic Levothyroxine Sodium (Synthroid -) 50 mcg PO DAILY@0700 [facility] Last Admin: 09/17/18 06:19 Dose: 50 mcg Methylprednisolone Sodium Succinate (Solu-Medrol -) 40 mg IVPUSH BID [facility] Last Admin: 09/17/18 09:32 Dose: 40 mg Pantoprazole Sodium (Protonix -) 40 mg PO BID [facility] Last Admin: 09/17/18 09:32 Dose: 40 mg Quetiapine Fumarate (Seroquel -) 25 mg PO HS [facility] Last Admin: 09/16/18 21:39 Dose: 25 mg Sertraline HCl (Zoloft -) 100 mg PO DAILY [facility] Last Admin: 09/17/18 09:32 Dose: 100 mg - Objective Vital Signs: Vital Signs Temperature 97.4 F L 09/17/18 06:00 Pulse Rate 67 09/17/18 06:00 Respiratory Rate 18 09/17/18 06:00 Blood Pressure 132/67 09/17/18 06:00 O2 Sat by Pulse Oximetry (%) 98 09/16/18 21:00 Constitutional: Yes: Calm, Thin Eyes: Yes: WNL HENT: Yes: WNL Neck: Yes: WNL Cardiovascular: Yes: Regular Rate and Rhythm, S1, S2 Respiratory: Yes: Rhonchi (FEW RHONCHI) Gastrointestinal: Yes: Normal Bowel Sounds, Soft Extremities: Yes: WNL Edema: No Labs: CBC, BMP 09/17/18 09:10 09/17/18 08:48 Problem List - Problems (1) CHF (congestive heart failure) Code(s): I50.9 - HEART FAILURE, UNSPECIFIED (2) COPD exacerbation Code(s): J44.1 - CHRONIC OBSTRUCTIVE PULMONARY DISEASE W (ACUTE) EXACERBATION (3) Dementia Code(s): F03.90 - UNSPECIFIED DEMENTIA WITHOUT BEHAVIORAL DISTURBANCE (4) Hypothyroid Code(s): E03.9 - HYPOTHYROIDISM, UNSPECIFIED (5) Pneumonia Code(s): J18.9 - PNEUMONIA, UNSPECIFIED ORGANISM (6) Hypothyroidism Code(s): E03.9 - HYPOTHYROIDISM, UNSPECIFIED (7) Parkinson disease Code(s): G20 - PARKINSON'S DISEASE (8) Seizure disorder Code(s): G40.909 - EPILEPSY, UNSP, NOT INTRACTABLE, WITHOUT STATUS EPILEPTICUS (9) Weakness Code(s): R53.1 - WEAKNESS Assessment/Plan IMP DYSPNEA IMPROVING COPD EXACERBATION IMPPROVING RECENT PNEUMONIA HTN DEMENTIA PARKINSONS DIFFUSE ERYTHEMATOUS MACULAR RASH LIKELY DRUG REACTION SLOWLY IMPROVING HYPOTHYROID PLAN STEROID TAPER BROVANA INHALED BRONCHODILATORS SUPPLEMENTAL O2 NEEDED F/U CHEST X-RAYS DR SWARTZ Problem List - Problems (1) CHF (congestive heart failure) Code(s): I50.9 - HEART FAILURE, UNSPECIFIED (2) COPD exacerbation Code(s): J44.1 - CHRONIC OBSTRUCTIVE PULMONARY DISEASE W (ACUTE) EXACERBATION (3) Dementia Code(s): F03.90 - UNSPECIFIED DEMENTIA WITHOUT BEHAVIORAL DISTURBANCE (4) Hypothyroid Code(s): E03.9 - HYPOTHYROIDISM, UNSPECIFIED (5) Pneumonia Code(s): J18.9 - PNEUMONIA, UNSPECIFIED ORGANISM (6) Hypothyroidism Code(s): E03.9 - HYPOTHYROIDISM, UNSPECIFIED (7) Parkinson disease Code(s): G20 - PARKINSON'S DISEASE (8) Seizure disorder Code(s): G40.909 - EPILEPSY, UNSP, NOT INTRACTABLE, WITHOUT STATUS EPILEPTICUS (9) Weakness Code(s): R53.1 - WEAKNESS
--- NOTE | 2018-09-17 11:08 | PN ---
Progress Note, Physician History of Present Illness: patient doing well no issues says she feels good - Current Medication List Current Medications: Active Medications Acetaminophen (Tylenol -) 650 mg PO Q6H PRN PRN Reason: PAIN LEVEL 7 - 10 Albuterol/Ipratropium (Duoneb -) 1 amp NEB Q4H PRN PRN Reason: SHORTNESS OF BREATH Arformoterol Tartrate (Brovana (Restricted To Pulmonology/Resp) -) 1 amp NEB RBID [facility] Last Admin: 09/17/18 07:56 Dose: 1 amp Buspirone HCl (Buspar -) 2.5 mg PO DAILY PRN PRN Reason: ANXIETY Docusate Sodium (Colace -) 100 mg PO DAILY PRN PRN Reason: CONSTIPATION Ferrous Sulfate (Feosol -) 325 mg PO BID [facility] Last Admin: 09/17/18 09:32 Dose: 325 mg Hydrocortisone (Hytone 0.5% Cream -) 1 applic TP Q12H PRN PRN Reason: rash Last Admin: 09/16/18 06:02 Dose: 1 applic Levothyroxine Sodium (Synthroid -) 50 mcg PO DAILY@0700 [facility] Last Admin: 09/17/18 06:19 Dose: 50 mcg Methylprednisolone Sodium Succinate (Solu-Medrol -) 40 mg IVPUSH BID [facility] Stop: 09/17/18 14:00 Last Admin: 09/17/18 09:32 Dose: 40 mg Pantoprazole Sodium (Protonix -) 40 mg PO BID [facility] Last Admin: 09/17/18 09:32 Dose: 40 mg Prednisone (Deltasone -) 40 mg PO DAILY [facility] Quetiapine Fumarate (Seroquel -) 25 mg PO HS [facility] Last Admin: 09/16/18 21:39 Dose: 25 mg Sertraline HCl (Zoloft -) 100 mg PO DAILY [facility] Last Admin: 09/17/18 09:32 Dose: 100 mg - Objective Vital Signs: Vital Signs Temperature 98.0 F 09/17/18 10:00 Pulse Rate 81 09/17/18 10:00 Respiratory Rate 20 09/17/18 10:00 Blood Pressure 154/80 09/17/18 10:00 O2 Sat by Pulse Oximetry (%) 98 09/16/18 21:00 Constitutional: Yes: No Distress, Calm Cardiovascular: Yes: Regular Rate and Rhythm Respiratory: Yes: Regular, CTA Bilaterally Gastrointestinal: Yes: Normal Bowel Sounds, Soft Musculoskeletal: Yes: WNL Extremities: Yes: WNL Neurological: Yes: Alert, Oriented Psychiatric: Yes: Alert, Oriented Labs: CBC, BMP 09/17/18 09:10 09/17/18 08:48 Assessment/Plan Assessment/Plan Problem List - Problems (1) Pneumonia Code(s): J18.9 - PNEUMONIA, UNSPECIFIED ORGANISM (2) Anemia Code(s): D64.9 - ANEMIA, UNSPECIFIED Qualifiers: Other causes of anemia: other cause, not classified Qualified Code(s): D64.89 - Other specified anemias (3) CAD (coronary artery disease) Code(s): I25.10 - ATHSCL HEART DISEASE OF [place] CORONARY ARTERY W/O ANG PCTRS (4) CHF (congestive heart failure) Code(s): I50.9 - HEART FAILURE, UNSPECIFIED Qualifiers: Qualified Code(s): I50.9 - Heart failure, unspecified (5) Diverticula of colon Code(s): K57.30 - DVRTCLOS OF LG INT W/O PERFORATION OR ABSCESS W/O BLEEDING (6) Hiatal hernia Code(s): K44.9 - DIAPHRAGMATIC HERNIA WITHOUT OBSTRUCTION OR GANGRENE (7) Hypothyroidism Code(s): E03.9 - HYPOTHYROIDISM, UNSPECIFIED (8) Parkinson disease Code(s): G20 - PARKINSON'S DISEASE (9) Seizure disorder Code(s): G40.909 - EPILEPSY, UNSP, NOT INTRACTABLE, WITHOUT STATUS EPILEPTICUS 10 rash diffuse plan rash improving monitor off of abx rest as per the team patient improving physio
[2018-09-17 14:38] VITALS: BP 121/67; PULSE 78; TEMP 97.7
--- NOTE | 2018-09-17 16:00 | DS ---
Physical Exam: SUBJECTIVE: Patient seen and examined OBJECTIVE: Vital Signs Period Temp Pulse Resp BP Sys/Riggins Pulse Ox Last 24 Hr 97.4 F-98.9 F 59-81 18-20 121-154/56-80 98-99 PHYSICAL EXAM GENERAL: The patient is awake, alert, and fully oriented, in no acute distress. HEAD: Normal with no signs of trauma. EYES: PERRL, extraocular movements intact, sclera anicteric, conjunctiva clear. ENT: Ears normal, nares patent, oropharynx clear without exudates, moist mucous membranes. NECK: Trachea midline, full range of motion, supple. LUNGS: Breath sounds equal, clear to auscultation bilaterally, no wheezes, no crackles, no accessory muscle use. HEART: Regular rate and rhythm, S1, S2 without murmur, rub or gallop. ABDOMEN: Soft, nontender, nondistended, normoactive bowel sounds, no guarding, no rebound, no hepatosplenomegaly, no masses. EXTREMITIES: 2+ pulses, warm, well-perfused, no edema. NEUROLOGICAL: Cranial nerves II through XII grossly intact. Normal speech, gait not observed. PSYCH: Normal mood, normal affect. SKIN: Warm, dry, normal turgor, faint pink rash noted to torso and extremities ( rash does not extend past her knees). LABS Laboratory Results - last 24 hr 09/17/18 09/17/18 08:48 09:10 WBC 16.0 H RBC 4.28 Hgb 12.3 Hct 36.9 MCV 86.3 MCH 28.7 MCHC 33.3 RDW 16.7 H Plt Count 432 MPV 7.7 Absolute Neuts (auto) 12.4 H Neutrophils % 77.6 Lymphocytes % 16.2 D Monocytes % 6.0 D Eosinophils % 0.0 Basophils % 0.2 D Nucleated RBC % 0 Sodium 139 Potassium 4.0 Chloride 103 Carbon Dioxide 28 Anion Gap 8 BUN 23 H Creatinine 0.7 Creat Clearance w eGFR > 60 Random Glucose 105 Calcium 8.6 Magnesium 2.1 HOSPITAL COURSE: Date of Admission:09/12/18 Date of Discharge: 09/17/18 Minutes to complete discharge: 45 Discharge Summary Reason For Visit: CHF,PNEUMONIA Current Active Problems CHF (congestive heart failure) (Acute) COPD exacerbation (Acute) Dementia (Acute) Hypothyroid (Acute) Pneumonia (Acute) Procedures: Principal: chest CT 09/12/2018. No definite acute infiltrate. Extensive b/l chronic lung disease. Borderline cardiac size. Mild chronic L2 vertebral body compression fracture. Hospital Course: Patient is an 88 year old female with a significant past medical history of hypothyroidism, Parkinson's, dementia, anemia, ESBL UTIs, diastolic CHF, COPD, HTN and anemia. She presents to the ED with complaints of a diffused pink generalized rash that erupted yesterday after taking Augmentin for pneumonia Patient has dementia and her sister provided most of the history. Sister reports that after being discharge at [facility] 2 days ago, she noticed that patient continued to be weak with a non productive cough. She continued to give her the Augmentin as prescribed and then today noticed that she developed a generalized rash that covered most of her body. She also reports that her sister had a black bowel movement today. Patient recently at [facility] from 08/31/18 to 09/09/18 for pneumonia and while admitted was treated with Zosyn IV. She was converted to Augmentin on 09/07/18. She was sent home and continued to take the antibiotics. When her sister noted the rash she was brought into the ED for further evaluation. ER course was notable for: (1) generalized pink raised drug rash on her back, buttocks, inner thighs, chest and stomach. (2) hgb/hct 13/40 (3) chest ct with moderate to large hiatal hernia. esophagitis. extensive bilateral chronic lung disease Pt was treated with IV steroids and nebs. Her condition improved and she was deemed stable for d/c home on 09/17. Pt sent home with oral pred taper. Additionally: Severe malnutrition in the setting of chronic illness evidenced by severe orbital sq fat loss in temporal region with acromium protrusion requiring nutritional support per dietary consultation. bmi 15.3, 4.7% loss x 2 weeks underweight/severe depletion sq fat and muscle fat on a soft diet, honey thick fluids. ensure and magic cup supplements with vitamins. needs assistance with feeds. Condition: Stable - Instructions Referrals: Jose Enrique Hernandez MD [Non Staff, Medical] - 2 Weeks (home care geriatric physician. Please call for an appointment. ) Rivera Montes De Oca MD [Emergency Physician] - Disposition: HOME - Home Medications Comprehensive Discharge Medication List: Ambulatory Orders Levothyroxine [Synthroid -] 50 mcg PO DAILY 08/18/15 Buspirone HCl [Buspar -] 2.5 mg PO DAILY PRN 05/09/18 Risperidone [Risperdal -] 0.25 mg PO BID 05/09/18 Sertraline HCl [Zoloft] 100 mg PO DAILY 05/23/18 Ferrous Sulfate 325 mg PO BID 08/31/18 Lactobacillus Acidophilus [Bacid -] 1 tab PO DAILY 08/31/18 Quetiapine Fumarate [Seroquel -] 25 mg PO HS 08/31/18 Acetaminophen [Tylenol .Regular Strength -] 650 mg PO Q6H PRN tablet 09/17/18 Arformoterol Tartrate [Brovana (Restricted To Pulmonology/Resp) -] 1 neb NEB BID #60 vial 09/17/18 Hydrocortisone 0.5% Cream [Hytone 0.5% Cream -] 1 applic TP Q12H PRN 7 Days #1 tube 09/17/18 Hydrocortisone 0.5% Ointment [Hytone 0.5% Ointment -] 1 applic TP BID #1 tube Pantoprazole Sodium [Protonix -] 40 mg PO DAILY #7 tablet.ec 09/17/18 Prednisone See Taper PO DAILY 6 Days #16 tablet 09/17/18 Problem List - Problems (1) COPD exacerbation Assessment/Plan: pt d/bang with oral pred taper brovana BID NC to maintain O2 sat > 90%. Code(s): J44.1 - CHRONIC OBSTRUCTIVE PULMONARY DISEASE W (ACUTE) EXACERBATION (2) Dementia Assessment/Plan: seroquel 25mg qhs Code(s): F03.90 - UNSPECIFIED DEMENTIA WITHOUT BEHAVIORAL DISTURBANCE (3) Hypothyroid Assessment/Plan: c/w synthroid Code(s): E03.9 - HYPOTHYROIDISM, UNSPECIFIED (4) Anxiety and depression Assessment/Plan: buspar 2.5mg daily zoloft 100mg daily Code(s): F41.9 - ANXIETY DISORDER, UNSPECIFIED; F32.9 - MAJOR DEPRESSIVE DISORDER, SINGLE EPISODE, UNSPECIFIED This patient is new to me today: No Emergency Visit: Yes ED Registration Date: 09/12/18 Care time: The patient presented to the Emergency Department on the above date and was hospitalized for further evaluation of their emergent condition. Critical Care patient: No - Discharge Referral Referred to [facility] No
[2018-09-18] MEDS ORDERED: predniSONE 20 MG TABLET (UD) PO SCH (10:00)
== END 2018-09-17 15:58 | disposition home or self-care (01) | DRG 606 ==
LOC: JER 12:18 → JERBED 15:35 → J4W 21:41 → JERBED 21:56 → J4W 21:59
PROVIDERS: ADMIT Internal Medicine; ATTEND Nurse Practitioner Family
DX: L27.0 Generalized skin eruption due to drugs and medicaments taken internally (principal); J18.9 Pneumonia, unspecified organism; E43 Unspecified severe protein-calorie malnutrition; I50.32 Chronic diastolic (congestive) heart failure; J44.1 Chronic obstructive pulmonary disease with (acute) exacerbation; R64 Cachexia; Z68.1 Body mass index [BMI] 19.9 or less, adult; J44.0 Chronic obstructive pulmonary disease with (acute) lower respiratory infection; K20.9 Esophagitis, unspecified; K44.9 Diaphragmatic hernia without obstruction or gangrene; T36.8X5A Adverse effect of other systemic antibiotics, initial encounter; I11.0 Hypertensive heart disease with heart failure; G31.83 Neurocognitive disorder with Lewy bodies; J44.9 Chronic obstructive pulmonary disease, unspecified; E03.9 Hypothyroidism, unspecified; G20 Parkinson's disease; F41.8 Other specified anxiety disorders; I25.10 Atherosclerotic heart disease of native coronary artery without angina pectoris
CPT/HCPCS: 36415; 71045-TC-FY; 71250-TC; 80048; 80053; 81003; 82272; 83735; 83880; 84100; 84443; 84484; 85025; 87040; 87086; 93005; 93010; 93306-TC; 94640; 99284-25; J0131; J7030

== ENCOUNTER 2018-11-13 16:09 | Inpatient (IN) | payer OTHER, MEDICARE ==
--- NOTE | 2018-11-13 16:39 | PDOC ---
Rapid Medical Evaluation Time Seen by Provider: 11/13/18 16:38 Medical Evaluation: Allergies Allergy/AdvReac Type Severity Reaction Status Date / Time amoxicillin [From Augmentin] Allergy Severe Hives Verified 09/12/18 15:45 clavulanic acid Allergy Severe Hives Verified 09/12/18 15:45 [From Augmentin] 11/13/18 16:38 I performed a brief in-person evaluation of this patient. Chief complaint: Sent by PCP (made house call for fevers, obtained CXR) for PNA. Pertinent physical exam findings: Bibasliar rales. Afebrile. I have ordered the following: Sepsis labs and singh-culture, CXR Patient will proceed to the ED for further evaluation. 11/13/18 16:40 Discharge Disposition - Diagnosis Pneumonia - Referrals - Patient Instructions - Post Discharge Activity
[2018-11-13 18:32] LABS: BASO % 0.9 % (0-2.0); EOS % 2.4 % (0-4.5); HEMATOCRIT 37.7 % (32.4-45.2); HEMOGLOBIN 12.4 GM/dL (10.7-15.3); LYMPH % 19.9 % (8-40); MCH 29.2 pg (25.7-33.7); MEAN CELL VOLUME 88.3 fl (80-96); MEAN PLT VOLUME 8.3 fl (7.5-11.1); MONO % 6.5 % (3.8-10.2); NEUT % 70.3 % (42.8-82.8); PLATELET COUNT 335 K/MM3 (134-434); RBC 4.26 M/mm3 (3.60-5.2); RDW 16.5 % (11.6-15.6)
[2018-11-13 18:46] LABS: INR 0.92 (0.83-1.09); PROTHROMBIN TIME (PATIENT) 10.8 SEC (9.7-13.0)
[2018-11-13 18:48] LABS: ACTIVATED PTT 30.2 SECONDS (25.2-36.5)
[2018-11-13 19:05] LABS: ALBUMIN 3.5 g/dl (3.4-5.0); ALK PHOS 105 U/L (45-117); ANION GAP 5 MMOL/L (8-16); BILIRUBIN,TOTAL 0.2 mg/dL (0.2-1); BLOOD UREA NITROGEN 13 mg/dL (7-18); CALCIUM 8.9 mg/dL (8.5-10.1); CHLORIDE 109 mmol/L (98-107); CO2 25 mmol/L (21-32); CREATININE 0.6 mg/dL (0.55-1.3); GLUCOSE,RANDOM 98 mg/dL (74-106); POTASSIUM 4.3 mmol/L (3.5-5.1); SGOT/AST 23 U/L (15-37); SGPT/ALT 17 U/L (13-61); SODIUM 140 mmol/L (136-145); TOT PROT 6.4 g/dl (6.4-8.2)
--- NOTE | 2018-11-13 19:10 | PDOC ---
History of Present Illness - General Chief Complaint: Respiratory Stated Complaint: VICKY SENT HER IN Time Seen by Provider: 11/13/18 16:38 History Source: Patient Exam Limitations: No Limitations - History of Present Illness Initial Comments: 11/13/18 19:04 88 yo female pmh hypothyroidism, Parkinson's, dementia, anemia, ESBL UTIs, diastolic CHF, COPD, HTN and anemia with recent admission for pneumonia presents to the ED by direction of PCP for pneumonia. PCP assessed pt in home , ordered in home CXR which showed new pneumonia and advised to go to the ER for treatment. Pt presents with Nephew and Sister who know hx very well and live together, state pt has had no new complaints at home, denies F/C/N/V no SOB, no cough and has had no exertional symptoms at home. Also denies CP, abdominal pain, back pain or changes in bowel or bladder habits. Past History - Past Medical History Allergies/Adverse Reactions: Allergies Allergy/AdvReac Type Severity Reaction Status Date / Time amoxicillin [From Augmentin] Allergy Severe Hives Verified 11/13/18 16:43 clavulanic acid Allergy Severe Hives Verified 11/13/18 16:43 [From Augmentin] Home Medications: Ambulatory Orders Levothyroxine [Synthroid -] 50 mcg PO DAILY 08/18/15 Buspirone HCl [Buspar -] 2.5 mg PO DAILY PRN 05/09/18 Risperidone [Risperdal -] 0.25 mg PO BID 05/09/18 Sertraline HCl [Zoloft] 100 mg PO DAILY 05/23/18 Ferrous Sulfate 325 mg PO BID 08/31/18 Lactobacillus Acidophilus [Bacid -] 1 tab PO DAILY 08/31/18 Quetiapine Fumarate [Seroquel -] 25 mg PO HS 08/31/18 Acetaminophen [Tylenol .Regular Strength -] 650 mg PO Q6H PRN tablet 09/17/18 Arformoterol Tartrate [Brovana (Restricted To Pulmonology/Resp) -] 1 neb NEB BID #60 vial 09/17/18 Hydrocortisone 0.5% Cream [Hytone 0.5% Cream -] 1 applic TP Q12H PRN 7 Days #1 tube 09/17/18 Hydrocortisone 0.5% Ointment [Hytone 0.5% Ointment -] 1 applic TP BID #1 tube Pantoprazole Sodium [Protonix -] 40 mg PO DAILY #7 tablet.ec 09/17/18 Prednisone See Taper PO DAILY 6 Days #16 tablet 09/17/18 Anemia: No Asthma: No Cancer: Yes ([place]) Cardiac Disorders: Yes CVA: No COPD: No CHF: Yes Dementia: Yes Diabetes: No GI Disorders: Yes (hiatal hernia) Disorders: Yes (urinary incontinence) HTN: Yes Hypercholesterolemia: No Liver Disease: No Psychiatric Problems: Yes Seizures: Yes (MANIC DEPRESSION) Thyroid Disease: Yes - Surgical History Abdominal Surgery: Yes Appendectomy: No Cardiac Surgery: No Cholecystectomy: Yes Lung Surgery: No Neurologic Surgery: No Orthopedic Surgery: No - Immunization History Immunization Up to Date: Yes - Suicide/Smoking/Psychosocial Hx Smoking Status: No Smoking History: Never smoked Have you smoked in the past 12 months: No Number of Cigarettes Smoked Daily: 0 If you are a former smoker, when did you quit?: Over 40 years ago Cigars Per Day: 0 Information on smoking cessation initiated: No Hx Alcohol Use: No Drug/Substance Use Hx: No Substance Use Type: None Hx Substance Use Treatment: No Review of Systems - Review of Systems Constitutional: No: Chills, Fever Respiratory: No: Cough, Shortness of Breath Cardiac (ROS): No: Chest Pain ABD/GI: No: Constipated, Diarrhea, Nausea, Vomiting : No: Burning, Dysuria, Flank Pain Musculoskeletal: No: Back Pain Integumentary: No: Change in Color Neurological: No: Numbness, Paresthesia, Weakness *Physical Exam - Vital Signs Last Vital Signs Temp Pulse Resp BP Pulse Ox 98.6 F 94 H 17 157/77 96 11/13/18 16:38 11/13/18 16:38 11/13/18 16:38 11/13/18 16:38 11/13/18 16:38 - Physical Exam General Appearance: Yes: Nourished, Appropriately Dressed. No: Apparent Distress HEENT: positive: EOMI Neck: positive: Supple. negative: Lymphadenopathy (R) Respiratory/Chest: positive: Rales (diffuse and bilateral). negative: Lungs Clear, Respiratory Distress, Accessory Muscle Use, Labored Respiration, Wheezing Cardiovascular: positive: Regular Rhythm, Regular Rate, S1, S2. negative: Edema , JVD, Murmur Vascular Pulses: Dorsalis-Pedis (R): 4+, Doralis-Pedis (L): 4+ Gastrointestinal/Abdominal: positive: Flat, Soft. negative: Pulsatile Mass, Distended, Guarding, Rebound, Tenderness Musculoskeletal: negative: CVA Tenderness Extremity: positive: Normal Inspection, Normal Range of Motion Integumentary: positive: Normal Color, Dry, Warm Neurologic: positive: Fully Oriented, Alert, Normal Mood/Affect, Normal Response Moderate Sedation - Procedure Monitoring Vital Signs: Procedure Monitoring Vital Signs Temperature 98.6 F 11/13/18 16:38 Pulse Rate 94 H 11/13/18 16:38 Respiratory Rate 17 11/13/18 16:38 Blood Pressure 157/77 11/13/18 16:38 O2 Sat by Pulse Oximetry (%) 96 11/13/18 16:38 ED Treatment Course - LABORATORY CBC & Chemistry Diagram: 11/13/18 17:49 11/13/18 17:49 - ADDITIONAL ORDERS Additional order review: Laboratory Results 11/13/18 11/13/18 17:49 17:49 WBC 12.0 H RBC 4.26 Hgb 12.4 Hct 37.7 MCV 88.3 MCH 29.2 MCHC 33.0 RDW 16.5 H Plt Count 335 D MPV 8.3 Absolute Neuts (auto) 8.5 H Neutrophils % 70.3 Lymphocytes % 19.9 D Monocytes % 6.5 Eosinophils % 2.4 D Basophils % 0.9 D Nucleated RBC % 0 PT with INR 10.80 INR 0.92 PTT (Actin FS) 30.2 11/13/18 17:49 RBC 4.26 MCV 88.3 MCHC 33.0 RDW 16.5 H MPV 8.3 Neutrophils % 70.3 Lymphocytes % 19.9 D Monocytes % 6.5 Eosinophils % 2.4 D Basophils % 0.9 D Medical Decision Making - Medical Decision Making 11/13/18 20:49 88 yo female sent to ED by PCP after pneumonia found on CXR. Pt has no complaints, denies SOB, cough, CP. Family reports no exertional s/s Pt admitted in September for pneumonia Exam shows diffuse rales bilaterally Vitals wnl, no elevated Temp DDX INLT: Pneumonia, CHF, pulmonary effusions CBC : WBC of 12 CMP, Trop and PT/PTT unremarkable Pt treated with Aztreonam and Vanc NAD, AOX3 Pt admitted for HCAP, inpatient team aware and accept pt *DC/Admit/Observation/Transfer Diagnosis at time of Disposition: Pneumonia, HCAP (healthcare-associated pneumonia) - Discharge Dispostion Decision to Admit order: Yes - Referrals - Patient Instructions - Post Discharge Activity
--- NOTE | 2018-11-13 19:10 | PDOC ---
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 The patient was seen at home by a doctor who ordered a chest X- ray. The Chest X-ray was significant for pneumonia and was referred to the ER on Saturday. The patient denies shortness of breath, chest pain, cough. Denies the use of home O2. Allergies: amoxicillin and clavulanic acid. PCP: [facility] extrusion [facility]. - Physicial Exam PE: 11/13/18 20:47 GENERAL: +pleasantly demented. Awake and alert. in no acute distress HEAD: No signs of trauma EYES: PERRLA, EOMI, sclera anicteric, conjunctiva clear ENT: +hard of hearing. Auricles normal inspection, nares patent, oropharynx clear without exudates. Moist mucosa NECK: Normal ROM, supple, no lymphadenopathy, JVD, or masses LUNGS: +right side rales, coarse breath sounds bilaterally, rhonchorous breath sounds. HEART: Regular rate and rhythm, normal S1 and S2, no murmurs, rubs or gallops ABDOMEN: Soft, nontender. No guarding, no rebound. No masses EXTREMITIES: Normal range of motion, no edema. No clubbing or cyanosis. No cords, erythema, or tenderness NEUROLOGICAL: Cranial nerves II through XII grossly intact. Normal speech. SKIN: Warm, Dry, normal turgor, no rashes or lesions noted. - Medical Decision Making 11/13/18 20:48 Documentation prepared by Suzanne York, acting as medical front desk coordinator for Zakia Mata DO. <Suzanne York - Last Filed: 11/13/18 20:50> - Resident Resident Name: Hermilo Duckworth - ED Attending Attestation I have performed the following: I have examined & evaluated the patient, The case was reviewed & discussed with the resident, I agree w/resident's findings & plan, Exceptions are as noted - Medical Decision Making 11/13/18 19:10 I, Dr. Zakia Mata DO, attest that this document has been prepared under my direction and personally reviewed by me in its entirety. I further attest, that it accurately reflects all work, treatment, procedures and medical decision -making performed by me. 11/13/18 19:29 88yo female brought in from home for outpt dx of pna -pt denies sob/cough -pt denies fevers -denies cp -pt is pleasantly demented -recently hospitalized - will cover for hcap -pt is nontoxic in appearance 11/13/18 20:42 elevated wbc cxr shows RML infiltrate abx ordered will admit for pna pt currently stable 11/13/18 21:15 resident discussed the case with edmar who accepts pt to service <Zakia Mata - Last Filed: 11/13/18 21:16>
[2018-11-13] MEDS ORDERED: VANCOMYCIN 1,000 MG in DEXTROSE 5%-WATER - 250 ML IVPB ONE (19:11)
[2018-11-13] MEDS ORDERED: AZTREONAM 2 GM in DEXTROSE 5%-WATER 100 ML IVPB SCH (19:15)
[2018-11-13] MEDS ORDERED: VANCOMYCIN 1 GRAM (PRE-DOCKED) 1,000 MG/250 ML BAG IVPB ONE (19:57)
[2018-11-13] MEDS: AZTREONAM 2 GM in DEXTROSE 5%-WATER 100 ML IVPB SCH (20:50)
--- NOTE | 2018-11-13 21:38 | HP ---
CHIEF COMPLAINT:sent by PCP for possible PNA PCP:marco humphreys visiting at home HISTORY OF PRESENT ILLNESS:history per ED as pt is very difficult to hear 88 yo female pmh hypothyroidism, Parkinson's, dementia, anemia, ESBL UTIs, diastolic CHF, COPD, HTN and anemia with recent admission for pneumonia presents to the ED by direction of PCP for pneumonia. PCP assessed pt in home , ordered in home CXR which showed new pneumonia and advised to go to the ER for treatment. Pt presents with Nephew and Sister who know hx very well and live together, state pt has had no new complaints at home, denies F/C/N/V no SOB, no cough and has had no exertional symptoms at home. Also denies CP, abdominal pain, back pain or changes in bowel or bladder habits. ER course was notable for: (1)CXR (2)Vanco, aztreonam (3)cbc, cmp Recent Travel:denies PAST MEDICAL HISTORY: as per HPI PAST SURGICAL HISTORY: unknown Social History: Smoking:denies Alcohol:denies Drugs: denies Family History: Allergies amoxicillin [From Augmentin] Allergy (Severe, Verified 11/13/18 16:43) Hives hives/rash clavulanic acid [From Augmentin] Allergy (Severe, Verified 11/13/18 16:43) Hives hives/rash HOME MEDICATIONS: Home Medications Medication Instructions Recorded Levothyroxine [Synthroid -] 50 mcg PO DAILY 08/18/15 Buspirone HCl [Buspar -] 2.5 mg PO DAILY PRN 05/09/18 Risperidone [Risperdal -] 0.25 mg PO BID 05/09/18 Sertraline HCl [Zoloft] 100 mg PO DAILY 05/23/18 Ferrous Sulfate 325 mg PO BID 08/31/18 Lactobacillus Acidophilus [Bacid -] 1 tab PO DAILY 08/31/18 Quetiapine Fumarate [Seroquel -] 25 mg PO HS 08/31/18 Acetaminophen [Tylenol .Regular 650 mg PO Q6H PRN tablet 09/17/18 Strength -] Arformoterol Tartrate [Brovana 1 neb NEB BID #60 vial 09/17/18 (Restricted To Pulmonology/Resp) -] Hydrocortisone 0.5% Cream [Hytone 1 applic TP Q12H PRN 7 Days #1 tube 09/17/18 0.5% Cream -] Hydrocortisone 0.5% Ointment 1 applic TP BID #1 tube 09/17/18 [Hytone 0.5% Ointment -] Pantoprazole Sodium [Protonix -] 40 mg PO DAILY #7 tablet.ec 09/17/18 Prednisone See Taper PO DAILY 6 Days #16 09/17/18 tablet REVIEW OF SYSTEMS not able to obtain as pt is very difficult to hear CONSTITUTIONAL: Absent: fever, chills, diaphoresis, generalized weakness, malaise, loss of appetite, weight change HEENT: Absent: rhinorrhea, nasal congestion, throat pain, throat swelling, difficulty swallowing, mouth swelling, ear pain, eye pain, visual changes CARDIOVASCULAR: Absent: chest pain, syncope, palpitations, irregular heart rate, lightheadedness , peripheral edema RESPIRATORY: Absent: cough, shortness of breath, dyspnea with exertion, orthopnea, wheezing, stridor, hemoptysis GASTROINTESTINAL: Absent: abdominal pain, abdominal distension, nausea, vomiting, diarrhea, constipation, melena, hematochezia GENITOURINARY: Absent: dysuria, frequency, urgency, hesitancy, hematuria, flank pain, genital pain MUSCULOSKELETAL: Absent: myalgia, arthralgia, joint swelling, back pain, neck pain SKIN: Absent: rash, itching, pallor HEMATOLOGIC/IMMUNOLOGIC: Absent: easy bleeding, easy bruising, lymphadenopathy, frequent infections ENDOCRINE: Absent: unexplained weight gain, unexplained weight loss, heat intolerance, cold intolerance NEUROLOGIC: Absent: headache, focal weakness or paresthesias, dizziness, unsteady gait, seizure, mental status changes, bladder or bowel incontinence PSYCHIATRIC: Absent: anxiety, depression, suicidal or homicidal ideation, hallucinations. PHYSICAL EXAMINATION Vital Signs - 24 hr 11/13/18 11/13/18 11/13/18 16:38 20:42 21:28 Temperature 98.6 F Pulse Rate 94 H Pulse Rate [ 90 Apical] Respiratory 17 17 Rate Blood Pressure 157/77 Blood Pressure 146/76 [Right Arm] O2 Sat by Pulse 96 99 99 Oximetry (%) GENERAL: Awake, alert, difficulty hearing HEAD: NC/AT EYES: Pupils equal, round and reactive to light, extraocular movements intact, ENT: Moist mucous membranes. NECK: supple LUNGS: coarse breath sound , rales at the bases HEART: Regular rate and rhythm, normal S1 and S2 without murmur, rub or gallop. ABDOMEN: Soft, nontender, not distended, normoactive bowel sounds, LOWER EXTREMITIES: 2+ pulses, warm, well-perfused. No calf tenderness. No peripheral edema. NEUROLOGICAL: Cranial nerves II-XII intact. Normal speech. PSYCHIATRIC: Cooperative. SKIN: Warm, dry, normal turgor, Laboratory Results - last 24 hr 11/13/18 11/13/18 11/13/18 17:49 17:49 17:49 WBC 12.0 H RBC 4.26 Hgb 12.4 Hct 37.7 MCV 88.3 MCH 29.2 MCHC 33.0 RDW 16.5 H Plt Count 335 D MPV 8.3 Absolute Neuts (auto) 8.5 H Neutrophils % 70.3 Lymphocytes % 19.9 D Monocytes % 6.5 Eosinophils % 2.4 D Basophils % 0.9 D Nucleated RBC % 0 PT with INR 10.80 INR 0.92 PTT (Actin FS) 30.2 Sodium 140 Potassium 4.3 Chloride 109 H Carbon Dioxide 25 Anion Gap 5 L BUN 13 Creatinine 0.6 Creat Clearance w eGFR 94.35 Random Glucose 98 Lactic Acid Calcium 8.9 Total Bilirubin 0.2 AST 23 ALT 17 Alkaline Phosphatase 105 Troponin I < 0.02 Total Protein 6.4 Albumin 3.5 11/13/18 17:49 WBC RBC Hgb Hct MCV MCH MCHC RDW Plt Count MPV Absolute Neuts (auto) Neutrophils % Lymphocytes % Monocytes % Eosinophils % Basophils % Nucleated RBC % PT with INR INR PTT (Actin FS) Sodium Potassium Chloride Carbon Dioxide Anion Gap BUN Creatinine Creat Clearance w eGFR Random Glucose Lactic Acid 1.2 Calcium Total Bilirubin AST ALT Alkaline Phosphatase Troponin I Total Protein Albumin CBC, BMP 11/13/18 17:49 11/13/18 17:49 ASSESSMENT/PLAN: Patient is an 88 year old female with a significant past medical history of hypothyroidism, Parkinson's, dementia, anemia, ESBL UTIs, diastolic CHF, COPD, HTN and anemia. she was sent to the ED by visiting marco HUMPHREYS who noticed consolidation changes on xray admitted for possible CPNA #Possible aspiration pneumonia * Given Vanco and aztreonam in ED * pt is afebrile with no symptoms will monitor off abx , WBC 12 likley due to recent use of steroids * O2 to maintain O2 sat >90% * Incentive spirometry * Keep head of bed elevated * duoneb * Blood cx and sputum cx send by ED * Urine legionella ag #Hypothyroidism: * cont synthroid #Diastolic CHF, Stable , * Monitor intake and output and daily weights. * Monitor for signs of fluid overload. * no standing fluids #Dementia,anxiety/depression * on buspar 10mg daily,seroquel, risperdal, sertraline #FEN * tolerating PO * monitor electrolytes * regular diet #prophy * SCDs bilaterally, Lovenox 40 SQ daily * GI: PPI 20 BID #code status * full code. # dispo * med surg Visit type - Emergency Visit Emergency Visit: Yes ED Registration Date: 11/13/18 Care time: The patient presented to the Emergency Department on the above date and was hospitalized for further evaluation of their emergent condition. - New Patient This patient is new to me today: Yes Date on this admission: 11/13/18 - Critical Care Critical Care patient: No
--- NOTE | 2018-11-13 23:11 | PN ---
Teaching Attending Note Name of Resident: Rio Mccullough ATTENDING PHYSICIAN STATEMENT I saw and evaluated the patient. I reviewed the resident's note and discussed the case with the resident. I agree with the resident's findings and plan as documented. SUBJECTIVE: Patient is an 88 year old woman with PMH of hypothyroidism, Parkinson's, dementia, anemia, ESBL UTIs, diastolic CHF, COPD, HTN and anemia with recent admission 09/2017-09/2018)for what was described as "pneumonia" presents to the ER by direction of PCP for pneumonia. PCP assessed her at home on 11/11/2018, ordered in home CXR which showed new ??pneumonia and advised to go to the ER for treatment. Patient presents with Nephew and Sister who know history very well and live together. Patient has had no new complaints at home. Denies fever , chills, nausea, vomiting, SOB or cough. Has had no exertional symptoms at home. Also denies chest pain, abdominal pain, back pain or changes in bowel or bladder habits. OBJECTIVE: Alert; lying down flat on the bed, comfortable and in no acute distress Vital Signs Period Temp Pulse Resp BP Sys/Riggins Pulse Ox Last 24 Hr 98.6 F 90-94 17-17 146-157/76-77 96-99 HEENT: No Jaundice, eye redness or discharge, PERRLA, EOMI. Normocephalic, atraumatic. Edentulous. External ears are normal and hearing is significantly impaired. No nasal discharge. Neck: Supple, nontender. No palpable adenopathy or thyromegaly. No JVD Chest: Good effort. Coarse breath sounds - more prominent anteriorly than posteriorly. Slightly prolonged expiration. No rales or wheezing. Clear to percussion. Heart: Regular. No S3, rub or murmur Abdomen: Not distended, soft, nontender and no HSM. No rebound or guarding. Normal bowel sounds. Ext: Peripheral pulses intact. No leg edema. Skin: Warm and dry. No petechiae, rash or ecchymosis. Neuro: Alert. Oriented to person and place. Dementia. CN 2-12 grossly intact. Sensation grossly intact in all four extremities and DTR are symmetric. Psych: Appropriate mood and affect. Good insight. Current Medications Generic Name Dose Route Start Last Admin Trade Name Freq PRN Reason Stop Dose Admin Enoxaparin Sodium 40 mg 11/14/18 10:00 Lovenox - SQ DAILY MISTI Aztreonam 2 gm/ Dextrose 100 mls @ 100 mls/hr 11/13/18 20:15 11/13/18 20:50 IVPB 11/14/18 10:59 100 mls/hr Q8H-IV MISTI Administration Protocol Aztreonam 2 gm/ Dextrose 100 mls @ 100 mls/hr 11/14/18 20:15 IVPB Q8H-IV MISTI Protocol Home Medications Medication Instructions Recorded Levothyroxine [Synthroid -] 50 mcg PO DAILY 08/18/15 Buspirone HCl [Buspar -] 2.5 mg PO DAILY PRN 05/09/18 Risperidone [Risperdal -] 0.25 mg PO BID 05/09/18 Sertraline HCl [Zoloft] 100 mg PO DAILY 05/23/18 Ferrous Sulfate 325 mg PO BID 08/31/18 Lactobacillus Acidophilus [Bacid -] 1 tab PO DAILY 08/31/18 Quetiapine Fumarate [Seroquel -] 25 mg PO HS 08/31/18 Acetaminophen [Tylenol .Regular 650 mg PO Q6H PRN tablet 09/17/18 Strength -] Arformoterol Tartrate [Brovana 1 neb NEB BID #60 vial 09/17/18 (Restricted To Pulmonology/Resp) -] Hydrocortisone 0.5% Cream [Hytone 1 applic TP Q12H PRN 7 Days #1 tube 09/17/18 0.5% Cream -] Hydrocortisone 0.5% Ointment 1 applic TP BID #1 tube 09/17/18 [Hytone 0.5% Ointment -] Pantoprazole Sodium [Protonix -] 40 mg PO DAILY #7 tablet.ec 09/17/18 Prednisone See Taper PO DAILY 6 Days #16 09/17/18 tablet Abnormal Lab Results 11/13/18 11/13/18 17:49 17:49 WBC 12.0 H RDW 16.5 H Absolute Neuts (auto) 8.5 H Chloride 109 H Anion Gap 5 L ASSESSMENT AND PLAN: 1. ??Pneumonia/??Pulmonary fibrosis - Despite being described as having "pneumonia" on multiple occasions recently, her CXR findings have remained unchanged with "only" chronic increased interstital lung markings and no acute infiltrate. Also chest CT scan from 09/12/18 did not show any acute infiltrate despite being treated for "pneumonia" at that time. Patient is oxygenating well now, does not have any symptoms, is afebrile and CXR findings are chronic and unchanged (bilateral increased interstitial markings, prominent hilar). It is unclear what prompted the Home visit by the PCP and what symptoms triggered the outpatient CXR. Will not continue antibiotics for now. Will consult pulmonary for possible PFTs and treat with Protonix 40 mg bid, in case reflux/GERD is precipitating pulmonary symptoms. Jessica PRN. Consult ID. Send urine for legionella antigen. She is underweight - needs intense nutritional support and donor services manager evaluation. 2. DVT prophylaxis - Lovenox 40 mg SQ q 24 hours. 3. Advance directives - Full code
[2018-11-13] MEDS ORDERED: HYDROCORTISONE 0.5% TOPICAL CREAM 30 GM TUBE TP PRN (23:24)
[2018-11-13] MEDS ORDERED: ACETAMINOPHEN 325 MG TABLET (FP) PO PRN (23:24)
[2018-11-13] MEDS ORDERED: ALBUTEROL SO4 2.5/IPRATROPIUM 0.5 INH SOL 3 ML VIAL.NEB. NEB PRN (23:50)
[2018-11-14 00:07] VITALS: BMI 22.3
[2018-11-14] MEDS: AZTREONAM 2 GM in DEXTROSE 5%-WATER 100 ML IVPB SCH ×2 (03:01→10:15)
[2018-11-14] MEDS ORDERED: LEVOTHYROXINE NA 50 MCG TABLET (FP) PO SCH (07:00)
[2018-11-14 07:43] LABS: BASO % 0.3 % (0-2.0); HEMATOCRIT 40.6 % (32.4-45.2); HEMOGLOBIN 13.5 GM/dL (10.7-15.3); LYMPH % 15.3 % (8-40); MCH 29.1 pg (25.7-33.7); MCHC 33.3 g/dl (32.0-36.0); MEAN CELL VOLUME 87.1 fl (80-96); MEAN PLT VOLUME 7.8 fl (7.5-11.1); MONO % 5.8 % (3.8-10.2); NEUT % 76.6 % (42.8-82.8); PLATELET COUNT 325 K/MM3 (134-434); RBC 4.65 M/mm3 (3.60-5.2); RDW 16.2 % (11.6-15.6); WHITE BLOOD COUNT 10.7 K/mm3 (4.0-10.0)
[2018-11-14 07:53] LABS: INR 0.97 (0.83-1.09); PROTHROMBIN TIME (PATIENT) 11.4 SEC (9.7-13.0)
[2018-11-14 07:55] LABS: ACTIVATED PTT 33.2 SECONDS (25.2-36.5)
[2018-11-14] MEDS ORDERED: ARFORMOTEROL TARTRATE 15 MCG/2 ML VIAL NEB SCH (08:00)
[2018-11-14 08:01] LABS: ALBUMIN 3.2 g/dl (3.4-5.0); ALK PHOS 108 U/L (45-117); ANION GAP 6 MMOL/L (8-16); BILIRUBIN,TOTAL 0.4 mg/dL (0.2-1); BLOOD UREA NITROGEN 10 mg/dL (7-18); CALCIUM 8.8 mg/dL (8.5-10.1); CHLORIDE 109 mmol/L (98-107); CO2 30 mmol/L (21-32); CREATININE 0.7 mg/dL (0.55-1.3); GLUCOSE,RANDOM 80 mg/dL (74-106); PHOSPHOROUS 2.6 mg/dL (2.5-4.9); POTASSIUM 3.7 mmol/L (3.5-5.1); SGOT/AST 12 U/L (15-37); SGPT/ALT 14 U/L (13-61); SODIUM 144 mmol/L (136-145); TOT PROT 6.1 g/dl (6.4-8.2)
[2018-11-14] MEDS ORDERED: PT OWN MED DRAWER 7, Y5N ONE (09:40)
[2018-11-14] MEDS ORDERED: LACTOBACILLUS ACIDOPHILUS 1 TABLET PO SCH (10:00)
[2018-11-14] MEDS ORDERED: PANTOPRAZOLE 40 MG TABLET (FP) PO SCH (10:00)
[2018-11-14] MEDS ORDERED: risperiDONE 0.25 MG TABLET (FP) PO SCH (10:00)
[2018-11-14] MEDS ORDERED: FERROUS SO4 325 MG TABLET (FP) PO SCH (10:00)
[2018-11-14] MEDS ORDERED: PANTOPRAZOLE 20 MG TABLET (FP) PO SCH (10:00)
[2018-11-14] MEDS ORDERED: SERTRALINE HCL 50 MG TABLET (FP) PO SCH (10:00)
[2018-11-14] MEDS ORDERED: ENOXAPARIN NA (PORCINE) 40 MG/0.4 ML DISP.SYRIN SQ SCH (10:00)
[2018-11-14] MEDS ORDERED: HYDROCORTISONE 0.5% TOPICAL OINTMENT TUBE TP SCH (10:00)
[2018-11-14] MEDS ORDERED: busPIRone HCL 5 MG TABLET PO PRN (10:00)
--- NOTE | 2018-11-14 11:03 | EKG ---
Test Reason : Blood Pressure : / mmHG Vent. Rate : 079 BPM Atrial Rate : 079 BPM P-R Int : 168 ms QRS Dur : 086 ms QT Int : 412 ms P-R-T Axes : 026 -29 -02 degrees QTc Int : 472 ms NORMAL SINUS RHYTHM WITH SINUS ARRHYTHMIA VOLTAGE CRITERIA FOR LEFT VENTRICULAR HYPERTROPHY ABNORMAL ECG WHEN COMPARED WITH ECG OF 13-SEP-2018 09:38, NO SIGNIFICANT CHANGE WAS FOUND Confirmed by HAYLEY PECK MD ([id number]) on 11/14/2018 11:02:46 AM Referred By: Confirmed By:HAYLEY PECK MD
--- NOTE | 2018-11-14 12:47 | DS ---
Physical Exam: SUBJECTIVE: Patient seen and examined at bedside. no acute events overnight. remains afebrile. leukocytosis resolving. CXR nl w/ no signs of PNA. pt breathing comfortably and sating well on RA 95%. denies fever, chills, cp, sob, n/v/d, urinary sxs, weakness OBJECTIVE: Vital Signs Period Temp Pulse Resp BP Sys/Riggins Pulse Ox Last 24 Hr 98 F-98.6 F 81-94 17-20 146-162/73-80 96-99 PHYSICAL EXAM GENERAL: AOX3, difficulty hearing HEAD: NC/AT EYES: Pupils equal, round and reactive to light, extraocular movements intact, ENT: Moist mucous membranes. NECK: supple LUNGS: coarse breath sound , dry crackles throughout lung hopson, no accessory muscle use, breathing comfortably on RA. no wheeze HEART: Regular rate and rhythm, normal S1 and S2 without murmur, rub or gallop. ABDOMEN: Soft, nontender, not distended, normoactive bowel sounds, LOWER EXTREMITIES: 2+ pulses, warm, well-perfused. No calf tenderness. No peripheral edema. NEUROLOGICAL: Cranial nerves II-XII intact. Normal speech. PSYCHIATRIC: Cooperative. SKIN: Warm, dry, normal turgor, LABS Laboratory Results - last 24 hr 11/13/18 11/13/18 11/13/18 17:49 17:49 17:49 WBC 12.0 H RBC 4.26 Hgb 12.4 Hct 37.7 MCV 88.3 MCH 29.2 MCHC 33.0 RDW 16.5 H Plt Count 335 D MPV 8.3 Absolute Neuts (auto) 8.5 H Neutrophils % 70.3 Lymphocytes % 19.9 D Monocytes % 6.5 Eosinophils % 2.4 D Basophils % 0.9 D Nucleated RBC % 0 PT with INR 10.80 INR 0.92 PTT (Actin FS) 30.2 Sodium 140 Potassium 4.3 Chloride 109 H Carbon Dioxide 25 Anion Gap 5 L BUN 13 Creatinine 0.6 Creat Clearance w eGFR 94.35 Random Glucose 98 Lactic Acid Calcium 8.9 Phosphorus Magnesium Total Bilirubin 0.2 AST 23 ALT 17 Alkaline Phosphatase 105 Troponin I < 0.02 Total Protein 6.4 Albumin 3.5 11/13/18 11/14/18 11/14/18 17:49 06:00 07:00 WBC 10.7 H RBC 4.65 Hgb 13.5 Hct 40.6 MCV 87.1 MCH 29.1 MCHC 33.3 RDW 16.2 H Plt Count 325 MPV 7.8 Absolute Neuts (auto) 8.2 H Neutrophils % 76.6 Lymphocytes % 15.3 D Monocytes % 5.8 Eosinophils % 2.0 Basophils % 0.3 Nucleated RBC % 0 PT with INR INR PTT (Actin FS) Sodium 144 Potassium 3.7 Chloride 109 H Carbon Dioxide 30 Anion Gap 6 L BUN 10 Creatinine 0.7 Creat Clearance w eGFR 78.97 Random Glucose 80 Lactic Acid 1.2 Calcium 8.8 Phosphorus 2.6 Magnesium 2.0 Total Bilirubin 0.4 AST 12 L ALT 14 Alkaline Phosphatase 108 Troponin I Total Protein 6.1 L Albumin 3.2 L 11/14/18 07:00 WBC RBC Hgb Hct MCV MCH MCHC RDW Plt Count MPV Absolute Neuts (auto) Neutrophils % Lymphocytes % Monocytes % Eosinophils % Basophils % Nucleated RBC % PT with INR 11.40 INR 0.97 PTT (Actin FS) 33.2 Sodium Potassium Chloride Carbon Dioxide Anion Gap BUN Creatinine Creat Clearance w eGFR Random Glucose Lactic Acid Calcium Phosphorus Magnesium Total Bilirubin AST ALT Alkaline Phosphatase Troponin I Total Protein Albumin HOSPITAL COURSE: Date of Admission:11/13/18 Date of Discharge: 11/14/18 88 year old female with a significant past medical history of hypothyroidism, Parkinson's, dementia, anemia, ESBL UTIs, diastolic CHF, COPD, HTN and anemia. she was sent to the ED by visiting marco BAUER who noticed consolidation changes on xray admitted for possible CPNA Admitted for Possible pneumonia? after visiting marco BAUER who noticed consolidation changes on xray taken at home. Here, afebrile and asx, VSS, no hypoxia noted. WBC 12 at admission but quickly resolving, likely 2/2 stress vs recovering from recent PNA in 09/2018 vs chronic lung disease based on prior CT scans. CXR findings have remained unchanged with only chronic increased interstitial lung markings and no acute infiltrate or evidence of PNA. pt did receive one dose of Vanco and aztreonam in ED, but further abx was dcd as it does not appear to be indicated at this time. Also chest CT scan from 09/12/18 did not show any acute infiltrate and only showed chronic lung disease. pt will be given pulm referral and recommended to have PFTs for further outpt w/ u. Advance directives - Full code pt is stable and ready for dc w/ appropriate f/u. Minutes to complete discharge: 37 Discharge Summary Reason For Visit: HEALTHCARE ASSOCIATED PNEUMONIA Current Active Problems HCAP (healthcare-associated pneumonia) (Acute) Pneumonia (Acute) Condition: Stable - Instructions Diet, Activity, Other Instructions: you were sent here by your visiting doctor because of a concern for pneumonia. We gave you antibiotics in the ER. You had no fevers, your vitals were stable, your labs were normal and Your chest xray came back normal and did not show signs of pneumonia. You are likely still recovering from your prior pneumonia back in September 2018. Of note, Your CT scan from September 2018 showed that you have chronic lung disease. Please follow up with [facility] [employer] Dr. Quintana or your primary care physician within 1 week to see if you may need pulmonary function tests (PFTs) to asses your lung function please resume your home meds. Please follow up with your primary care physician within 1 week. Please follow up with [facility] [employer] [facility] Dr. Quintana within 1 week If you experience any fevers, chills, shortness of breath, chest pain, nausea, vomit, diarrhea, please call 911 or go to the ER. Referrals: Zeke Quintana MD [Staff Physician] - 1 Week Disposition: HOME - Home Medications Comprehensive Discharge Medication List: Ambulatory Orders Levothyroxine [Synthroid -] 50 mcg PO DAILY 08/18/15 Buspirone HCl [Buspar -] 2.5 mg PO DAILY PRN 05/09/18 Risperidone [Risperdal -] 0.25 mg PO BID 05/09/18 Sertraline HCl [Zoloft] 100 mg PO DAILY 05/23/18 Ferrous Sulfate 325 mg PO BID 08/31/18 Lactobacillus Acidophilus [Bacid -] 1 tab PO DAILY 08/31/18 Quetiapine Fumarate [Seroquel -] 25 mg PO HS 08/31/18 Acetaminophen [Tylenol .Regular Strength -] 650 mg PO Q6H PRN tablet 09/17/18 Arformoterol Tartrate [Brovana -] 1 neb NEB BID #60 vial 09/17/18 Hydrocortisone 0.5% Cream [Hytone 0.5% Cream -] 1 applic TP Q12H PRN 7 Days #1 tube 09/17/18 Hydrocortisone 0.5% Ointment [Hytone 0.5% Ointment -] 1 applic TP BID #1 tube Pantoprazole Sodium [Protonix -] 40 mg PO DAILY #7 tablet.ec 09/17/18 This patient is new to me today: Yes Date on this admission: 11/14/18 Emergency Visit: Yes ED Registration Date: 11/13/18 Care time: The patient presented to the Emergency Department on the above date and was hospitalized for further evaluation of their emergent condition. Critical Care patient: No - Discharge Referral Referred to [facility] Med P.C.: No
[2018-11-14 13:38] VITALS: BP 153/90; PULSE 92; TEMP 98.1
--- NOTE | 2018-11-14 16:56 | PN ---
Teaching Attending Note Name of Resident: Lucho Jolly ATTENDING PHYSICIAN STATEMENT I saw and evaluated the patient. I reviewed the resident's note and discussed the case with the resident. I agree with the resident's findings and plan as documented. SUBJECTIVE: Feels well - no complaints except for chronic cough. No sputum/ hemoptysis. No fever/chills. No nausea/vomiting OBJECTIVE: Afebrile, Hemodynamically Stable Last Vital Signs Temp Pulse Resp BP Pulse Ox 98.1 F 92 H 20 153/90 99 11/14/18 10:00 11/14/18 10:00 11/14/18 10:00 11/14/18 10:00 11/14/18 09:00 HEENT - Atraumatic, Normocephalic. Heart - S1, S2, soft SM Lungs - bilateral fine crackles Abdomen - Soft, non-tender. Bowel Sounds normal Extremities - no edema. No calf tenderness Laboratory Results - last 24 hr 11/13/18 11/13/18 11/13/18 17:49 17:49 17:49 WBC 12.0 H RBC 4.26 Hgb 12.4 Hct 37.7 MCV 88.3 MCH 29.2 MCHC 33.0 RDW 16.5 H Plt Count 335 D MPV 8.3 Absolute Neuts (auto) 8.5 H Neutrophils % 70.3 Lymphocytes % 19.9 D Monocytes % 6.5 Eosinophils % 2.4 D Basophils % 0.9 D Nucleated RBC % 0 PT with INR 10.80 INR 0.92 PTT (Actin FS) 30.2 Sodium 140 Potassium 4.3 Chloride 109 H Carbon Dioxide 25 Anion Gap 5 L BUN 13 Creatinine 0.6 Creat Clearance w eGFR 94.35 Random Glucose 98 Lactic Acid Calcium 8.9 Phosphorus Magnesium Total Bilirubin 0.2 AST 23 ALT 17 Alkaline Phosphatase 105 Troponin I < 0.02 Total Protein 6.4 Albumin 3.5 11/13/18 11/14/18 11/14/18 17:49 06:00 07:00 WBC 10.7 H RBC 4.65 Hgb 13.5 Hct 40.6 MCV 87.1 MCH 29.1 MCHC 33.3 RDW 16.2 H Plt Count 325 MPV 7.8 Absolute Neuts (auto) 8.2 H Neutrophils % 76.6 Lymphocytes % 15.3 D Monocytes % 5.8 Eosinophils % 2.0 Basophils % 0.3 Nucleated RBC % 0 PT with INR INR PTT (Actin FS) Sodium 144 Potassium 3.7 Chloride 109 H Carbon Dioxide 30 Anion Gap 6 L BUN 10 Creatinine 0.7 Creat Clearance w eGFR 78.97 Random Glucose 80 Lactic Acid 1.2 Calcium 8.8 Phosphorus 2.6 Magnesium 2.0 Total Bilirubin 0.4 AST 12 L ALT 14 Alkaline Phosphatase 108 Troponin I Total Protein 6.1 L Albumin 3.2 L 11/14/18 07:00 WBC RBC Hgb Hct MCV MCH MCHC RDW Plt Count MPV Absolute Neuts (auto) Neutrophils % Lymphocytes % Monocytes % Eosinophils % Basophils % Nucleated RBC % PT with INR 11.40 INR 0.97 PTT (Actin FS) 33.2 Sodium Potassium Chloride Carbon Dioxide Anion Gap BUN Creatinine Creat Clearance w eGFR Random Glucose Lactic Acid Calcium Phosphorus Magnesium Total Bilirubin AST ALT Alkaline Phosphatase Troponin I Total Protein Albumin Discharge Medications Medication Instructions Recorded Levothyroxine [Synthroid -] 50 mcg PO DAILY 08/18/15 Buspirone HCl [Buspar -] 2.5 mg PO DAILY PRN 05/09/18 Risperidone [Risperdal -] 0.25 mg PO BID 05/09/18 Sertraline HCl [Zoloft] 100 mg PO DAILY 05/23/18 Ferrous Sulfate 325 mg PO BID 08/31/18 Lactobacillus Acidophilus [Bacid -] 1 tab PO DAILY 08/31/18 Quetiapine Fumarate [Seroquel -] 25 mg PO HS 08/31/18 Acetaminophen [Tylenol .Regular 650 mg PO Q6H PRN tablet 09/17/18 Strength -] Arformoterol Tartrate [Brovana -] 1 neb NEB BID #60 vial 09/17/18 Hydrocortisone 0.5% Cream [Hytone 1 applic TP Q12H PRN 7 Days #1 tube 09/17/18 0.5% Cream -] Hydrocortisone 0.5% Ointment 1 applic TP BID #1 tube 09/17/18 [Hytone 0.5% Ointment -] Pantoprazole Sodium [Protonix -] 40 mg PO DAILY #7 tablet.ec 09/17/18 Albuterol 0.083% Nebulizer Zena 1 amp NEB Q6H PRN #30 amp 11/14/18 [Ventolin 0.083% Nebulizer Soln -] ASSESSMENT AND PLAN: 88 year old female with history of hypothyroidism, Parkinson's Disease, Dementia , Chronic Anemia, history of priro ESBL UTIs, Chronic Diastolic CHF, COPD, HTN and anemia, sent to ED by covering Primary [facility] Dr who noticed CXR changes, which have turned out to be chronic, with no acute component. She was presented for admission for pneumonia but admitting hospitalist team did not feel that this was the case. On my evaluation, the patient had no new infective symptoms. She was afebrile, hemodynamically stable with fine crackles bilaterally with chronic lung changes on CXR, indicative of possibel fibrotic lung disease, with no exacerbation currently. Patient is medically stable for discharge with Pulm referral for further investigation including PFTs and optimization of Pulmonary regimen. Continue Brovana and Albuterol prn. Hypothyroidism - Continue Synthroid. Dementia - continue Buspirone, Sertraline, Seroquel, and Risperidone GERD - Continue Pantoprazole.
[2018-11-14] MEDS ORDERED: AZTREONAM 2 GM in DEXTROSE 5%-WATER 100 ML IVPB SCH (20:15)
[2018-11-14] MEDS ORDERED: QUEtiapine FUMARATE 25 MG TABLET (FP) PO SCH (22:00)
--- NOTE | 2018-11-15 18:10 | EKG ---
Test Reason : Blood Pressure : / mmHG Vent. Rate : 083 BPM Atrial Rate : 083 BPM P-R Int : 156 ms QRS Dur : 084 ms QT Int : 396 ms P-R-T Axes : 036 -27 018 degrees QTc Int : 465 ms NORMAL SINUS RHYTHM WITH SINUS ARRHYTHMIA POSSIBLE LEFT ATRIAL ENLARGEMENT LEFT VENTRICULAR HYPERTROPHY ABNORMAL ECG WHEN COMPARED WITH ECG OF 13-SEP-2018 09:38, T WAVE INVERSION NOW EVIDENT IN ANTERIOR LEADS Confirmed by MD YESSENIA, YARI ([id number]) on 11/15/2018 6:10:11 PM Referred By: Confirmed By:YARI CASAS MD
== END 2018-11-14 14:07 | disposition home or self-care (01) | DRG 197 ==
LOC: JER 16:09 → JERBED 20:48 → J8W 22:22
PROVIDERS: ADMIT Internal Medicine
DX: J84.10 Pulmonary fibrosis, unspecified (principal); F33.9 Major depressive disorder, recurrent, unspecified; I50.32 Chronic diastolic (congestive) heart failure; I11.0 Hypertensive heart disease with heart failure; J44.9 Chronic obstructive pulmonary disease, unspecified; E03.9 Hypothyroidism, unspecified; G20 Parkinson's disease; F02.80 Dementia in other diseases classified elsewhere, unspecified severity, without behavioral disturbance, psychotic disturbance, mood disturbance, and anxiety; D64.9 Anemia, unspecified; R32 Unspecified urinary incontinence; Z87.891 Personal history of nicotine dependence; F41.9 Anxiety disorder, unspecified
CPT/HCPCS: 36415; 71045-TC-FY; 80053; 83605; 83735; 84100; 84484; 85025; 85610; 85730; 87040; 93005; 93010; 94640; 97116-GP; 97161-GP; 99285-25

== ENCOUNTER 2019-04-05 11:43 | Emergency (ER) | payer OTHER, MEDICARE | END 2019-04-05 16:29 | disposition home or self-care (01) | LOC: JER 11:43 ==

== ENCOUNTER 2019-05-26 11:00 | Emergency (ER) | payer OTHER, MEDICARE ==
[2019-05-26 11:35] VITALS: BMI 26.0
[2019-05-26] MEDS ORDERED: POTASSIUM CHLORIDE TABS 20 MEQ TABLET.ER (FP) PO ONE ×2 (12:23→12:48)
[2019-05-26] MEDS ORDERED: SODIUM CHLORIDE 0.9% 500 ML INFUS.BAG IV ONE (12:23)
[2019-05-26 12:59] LABS: BASO % 0.4 % (0-2.0); EOS % 4.6 % (0-4.5); HEMATOCRIT 36.3 % (32.4-45.2); HEMOGLOBIN 11.7 GM/dL (10.7-15.3); LYMPH % 10.6 % (8-40); MCH 26.6 pg (25.7-33.7); MCHC 32.2 g/dl (32.0-36.0); MEAN CELL VOLUME 82.8 fl (80-96); MEAN PLT VOLUME 7.5 fl (7.5-11.1); MONO % 5.9 % (3.8-10.2); NEUT % 78.5 % (42.8-82.8); PLATELET COUNT 473 K/MM3 (134-434); RBC 4.38 M/mm3 (3.60-5.2); RDW 16.4 % (11.6-15.6); WHITE BLOOD COUNT 13.3 K/mm3 (4.0-10.0)
--- NOTE | 2019-05-26 13:04 | PDOC ---
History of Present Illness - General Chief Complaint: Revisit, Lab Variance Stated Complaint: LOW POTASIUM Time Seen by Provider: 05/26/19 12:07 History Source: Patient Exam Limitations: No Limitations - History of Present Illness Initial Comments: 05/26/19 13:01 88yo F with PMH of CHF, COPD, HTN, Parkinson's, Hypothyroidism, Dementia, Anemia ,hypothyroidism, Parkinson's, dementia, anemia BIB for hypokalemia on routine labs yesterday seen by PCP, [place] workers' compensation hearings officer Zulema Tellez today one large episode of watery dark diarrhea, usually has diarrhea x2 per week. also noted to have nonproductive cough x 1 week, but not bothering her or causing SOB. potassium was found to be 2.4 allergies: augmentin. 05/26/19 16:17 05/26/19 16:21 Past History - Past Medical History Allergies/Adverse Reactions: Allergies Allergy/AdvReac Type Severity Reaction Status Date / Time amoxicillin [From Augmentin] Allergy Severe Hives Verified 05/26/19 11:30 clavulanic acid Allergy Severe Hives Verified 05/26/19 11:30 [From Augmentin] Home Medications: Ambulatory Orders Levothyroxine [Synthroid -] 50 mcg PO DAILY 08/18/15 Risperidone [Risperdal -] 0.25 mg PO BID 05/09/18 Sertraline HCl [Zoloft] 100 mg PO DAILY 05/23/18 Pantoprazole Sodium [Protonix -] 40 mg PO DAILY #7 tablet.ec 09/17/18 Buspirone HCl [Buspar -] 5 mg PO ONCE 04/05/19 Quetiapine Fumarate [Seroquel -] 2 tab PO BID 04/05/19 Azithromycin 250 mg PO DAILY 4 Days #4 tablet 05/26/19 Cefpodoxime Proxetil [Vantin -] 200 mg PO Q12H 7 Days #14 tablet 05/26/19 Potassium Chloride 40 meq PO DAILY #200 ml 05/26/19 Anemia: No Asthma: No Cancer: Yes (Adenoma) Cardiac Disorders: Yes CVA: No COPD: No CHF: Yes Dementia: Yes Diabetes: No GI Disorders: Yes (hiatal hernia) Disorders: Yes (urinary incontinence) HTN: Yes Hypercholesterolemia: No Liver Disease: No Psychiatric Problems: Yes Seizures: Yes (MANIC DEPRESSION) Thyroid Disease: Yes - Surgical History Abdominal Surgery: Yes Appendectomy: No Cardiac Surgery: No Cholecystectomy: Yes Lung Surgery: No Neurologic Surgery: No Orthopedic Surgery: No - Immunization History Immunization Up to Date: Yes - Psycho Social/Smoking Cessation Hx Smoking Status: No Smoking History: Unknown if ever smoked Have you smoked in the past 12 months: No Number of Cigarettes Smoked Daily: 0 If you are a former smoker, when did you quit?: Over 40 years ago Cigars Per Day: 0 Hx Alcohol Use: No Drug/Substance Use Hx: No Substance Use Type: None Hx Substance Use Treatment: No Review of Systems - Review of Systems Able to Perform ROS?: Yes Comments:: 05/26/19 13:05 Review of systems Constitutional: no fevers or chills. No weakness HEENT: no headache or dizziness. No congestion. No visual/hearing disturbances. CVS: no cp or syncope. Resp: no sob. No cough. Gastrointestinal: no abdominal pain, nausea or vomiting. +diarrhea. Genitourinary: no urinary sx, hematuria. MUSCULOSKELETAL: No joint pain and swelling. No neck or back pain. SKIN: no redness or skin changes, no discharge, no rash. No wounds. Hematologic: no easy bruising/bleeding. NEUROLOGIC: No headache, dizziness, LOC or altered mental status. No weakness, numbness or tingling. Psych: no anxiety or depression Allergic/Immunologic: no allergies All other systems reviewed and negative, or as documented in HPI. *Physical Exam - Vital Signs Last Vital Signs Temp Pulse Resp BP Pulse Ox 112 H 26 H 99/61 92 L 05/26/19 11:23 05/26/19 11:23 05/26/19 11:23 05/26/19 11:23 - Physical Exam Comments: 05/26/19 13:05 General: Well appearing, awake and alert, NAD. pleasant elderly female. HEENT: NCAT, PERRL, EOMI, clear conjunctiva, anicteric, moist mucus membranes, clear oropharynx, no oral lesions.. Neck: neck supple, FROM Resp: bilateral crackles, normal and even respirations, no respiratory distress CVS: RRR, no murmurs, 2+ peripheral pulses throughout, no peripheral edema Abdomen: soft, NTND, no rebound or guarding. No CVAT. Back: nontender, normal inspection and ROM MSK: no edema, QUIJANO x4, ROM intact. No clubbing or cyanosis. normal bulk and tone. Extremities: no calf tenderness Neuro: alert, pleasantly demented, no focal neuro deficits Psych: Calm and cooperative Skin: warm and well perfused, cap refill <2 sec, normal color 05/26/19 16:48 Heart Score/ECG Review #1 ECG reviewed & interpreted by me at: 12:30 General ECG Interpretation: Sinus Rhythm, Normal Rate, Normal Intervals Compared to previous ECG there are: No significant change ED Treatment Course - LABORATORY CBC & Chemistry Diagram: 05/26/19 12:40 05/26/19 16:10 - Medications Given in the ED: ED Medications Discontinued Medications Generic Name Dose Route Start Last Admin Trade Name Freq PRN Reason Stop Dose Admin Potassium Chloride 40 meq 05/26/19 12:23 05/26/19 12:55 K-Dur - PO 05/26/19 12:24 40 meq ONCE ONE Administration Sodium Chloride 1,000 ml 05/26/19 12:23 05/26/19 12:55 Normal Saline - IV 05/26/19 12:24 1,000 ml ONCE ONE Administration Medical Decision Making - Medical Decision Making 05/26/19 13:06 Vital Signs Temp Pulse Resp BP Pulse Ox 112 H 26 H 99/61 92 L 05/26/19 11:23 05/26/19 11:23 05/26/19 11:23 05/26/19 11:23 Vitals noted, tachycardia, borderline hypoxic but has copd - similar to prior ranges. soft BP tachy improving, with hydration and potassium. well appearing otherwise. laboratory results and imaging reviewed, basic labs and lytes wnl, notable for low K 2.6, repleting. baseline leukocytosis CXR_coarse lung changes, on right side, hyperinflated lungs, c/w copd Cardiac panel_neg, reassuring, less likely cardiac. EKG normal sinus rhythm at 95 bpm, no interval abnormalities, narrow QRS, ST and T wave segments and morphology normal. Nonspecific T wave abnormalities intermittent PVC, similar to prior ED course -interventions: IVF, potassium - consider abx for atypical pna, given lung findings and sats. +SHEETING PULLER cough x 1 week. will treat with cefpodoxime and azithromycin for typical and atypical coverage. - rpt VS normalizing, sats 92-94 up to 96% on RA, also COPD can allow to have sats 90-94%. no longer tachy, afebrile rectally. 99.4. sats appropriate and baseline, no respiratory distress. no diarrhea here. no respiratory distress. nonlabored breathing. duoneb x 1 treatment here, improved. 05/26/19 16:19 - d/w Zulema Tellez does not eat much usually, baseline with labile tachy/BP, normal sats 94-95% rx potassium liquid form, will rx 20meq liq abx agreeable to combo therapy will see later this week, make appt for /saturday agree, no indication for admission Pt to be discharged in stable condition. Patient and family made aware of clinical impression, treatment recommendations and disposition plan, return precautions discussed (including but not limited to new or persistent/worsening symptoms, pain, fevers, or signs of infection, chest pain, respiratory distress , inability to tolerate oral intake, dehydration, syncope, or neurologic changes ). Follow up with PMD as recommended, follow up information provided, take medications as instructed for duration of time. continue with supportive care, avoid triggers and precipitants. All questions answered to patient's satisfaction and expressed understanding and comfort with this. At the time of discharge, the patient is alert, clinically improved, tolerating po and verbalizes understanding of instructions, satisfied with the care received and felt comfortable with the plan. Patient does not suffer from an acute life- threatening medical condition at this time and is safe for outpatient follow- up. 05/26/19 17:33 05/26/19 17:38 05/26/19 17:39 *DC/Admit/Observation/Transfer Diagnosis at time of Disposition: Hypokalemia Pneumonia Qualifiers: Pneumonia type: due to unspecified organism Laterality: right Lung location: unspecified part of lung Qualified Code(s): J18.9 - Pneumonia, unspecified organism - Discharge Dispostion Disposition: HOME Condition at time of disposition: Good Decision to Admit order: No - Prescriptions Prescriptions: Azithromycin 250 mg PO DAILY 4 Days #4 tablet Cefpodoxime Proxetil [Vantin -] 200 mg PO Q12H 7 Days #14 tablet Potassium Chloride 40 meq PO DAILY #200 ml - Referrals - Patient Instructions Printed Discharge Instructions: DI for Pneumonia -- Adult, DI for Hypokalemia Additional Instructions: 1) Please follow-up with your primary care doctor in the next 1-2 days. Please call tomorrow for for any urgent issues. 2) You were given a copy of the tests performed today. Please bring the results with you and review them with your primary care doctor. Your laboratory / and imaging results with low potassium and baseline elevated white blood cell count , chest x ray with right sided pneumonia, which will be treated with oral antibiotics. 3) If you have any worsening of symptoms or any other concerns please return to the ED immediately. Return if worsening symptoms including fevers, headache, vomiting, visual or hearing disturbances, abdominal pain, chest pain, shortness of breath, syncope, dehydration, inability to take things by mouth/vomiting, altered mental status, or worsening concerning symptoms. 4) Please continue taking your home medications as directed. your medications on discharge include antibiotics: cepodoxime twice a day and azithromycin once daily for the week . side effects may include upset stomach, abdominal pain, vomiting, or diarrhea. do not drink alcohol with your medications. take the potassium liquid for supplementation. Stay well hydrated and rest adequately. Make an appointment with Zulema Tellez, your primary care provider - please call for home call for later this week for or Saturday.. If you cannot follow-up with your primary care doctor please return to the ED - Post Discharge Activity Discharge - Discharge Information Problems reviewed: Yes Clinical Impression/Diagnosis: Hypokalemia Pneumonia Qualifiers: Pneumonia type: due to unspecified organism Laterality: right Lung location: unspecified part of lung Qualified Code(s): J18.9 - Pneumonia, unspecified organism Condition: Good Disposition: HOME - Additional Discharge Information Prescriptions: Azithromycin 250 mg PO DAILY 4 Days #4 tablet Cefpodoxime Proxetil [Vantin -] 200 mg PO Q12H 7 Days #14 tablet Potassium Chloride 40 meq PO DAILY #200 ml - Follow up/Referral - Patient Discharge Instructions Patient Printed Discharge Instructions: DI for Pneumonia -- Adult, DI for Hypokalemia Additional Instructions: 1) Please follow-up with your primary care doctor in the next 1-2 days. Please call tomorrow for for any urgent issues. 2) You were given a copy of the tests performed today. Please bring the results with you and review them with your primary care doctor. Your laboratory / and imaging results with low potassium and baseline elevated white blood cell count , chest x ray with right sided pneumonia, which will be treated with oral antibiotics. 3) If you have any worsening of symptoms or any other concerns please return to the ED immediately. Return if worsening symptoms including fevers, headache, vomiting, visual or hearing disturbances, abdominal pain, chest pain, shortness of breath, syncope, dehydration, inability to take things by mouth/vomiting, altered mental status, or worsening concerning symptoms. 4) Please continue taking your home medications as directed. your medications on discharge include antibiotics: cepodoxime twice a day and azithromycin once daily for the week . side effects may include upset stomach, abdominal pain, vomiting, or diarrhea. do not drink alcohol with your medications. take the potassium liquid for supplementation. Stay well hydrated and rest adequately. Make an appointment with Zulema Tellez, your primary care provider - please call for home call for later this week for or Saturday.. If you cannot follow-up with your primary care doctor please return to the ED - Post Discharge Activity
[2019-05-26] MEDS ORDERED: KCL 10 MEQ IVPB 10 MEQ/100 ML INFUS.BAG IVPB ONE ×3 (13:13→15:25)
[2019-05-26] MEDS: KCL 10 MEQ IVPB 10 MEQ/100 ML INFUS.BAG IVPB SCH ×3 (13:20→15:34)
[2019-05-26 13:26] LABS: ALBUMIN 2.7 g/dl (3.4-5.0); ALK PHOS 117 U/L (45-117); ANION GAP 10 MMOL/L (8-16); BILIRUBIN,TOTAL 0.2 mg/dL (0.2-1); BLOOD UREA NITROGEN 12.1 mg/dL (7-18); CALCIUM 9.1 mg/dL (8.5-10.1); CHLORIDE 103 mmol/L (98-107); CO2 28 mmol/L (21-32); CREATININE 0.9 mg/dL (0.55-1.3); GLUCOSE,RANDOM 105 mg/dL (74-106); SGOT/AST 11 U/L (15-37); SGPT/ALT 15 U/L (13-61); SODIUM 141 mmol/L (136-145); TOT PROT 6.5 g/dl (6.4-8.2)
[2019-05-26 13:29] LABS: POTASSIUM 2.6 mmol/L (3.5-5.1)
--- NOTE | 2019-05-26 14:31 | EKG ---
Test Reason : Blood Pressure : / mmHG Vent. Rate : 095 BPM Atrial Rate : 095 BPM P-R Int : 212 ms QRS Dur : 098 ms QT Int : 392 ms P-R-T Axes : 047 -31 020 degrees QTc Int : 492 ms SINUS RHYTHM WITH 1ST DEGREE A-V BLOCK WITH OCCASIONAL PREMATURE VENTRICULAR COMPLEXES POSSIBLE LEFT ATRIAL ENLARGEMENT LEFT AXIS DEVIATION INCOMPLETE RIGHT BUNDLE BRANCH BLOCK LEFT VENTRICULAR HYPERTROPHY NONSPECIFIC T WAVE ABNORMALITY PROLONGED QT ABNORMAL ECG WHEN COMPARED WITH ECG OF 05-APR-2019 11:41, PREMATURE VENTRICULAR COMPLEXES ARE NOW PRESENT DE INTERVAL HAS INCREASED Confirmed by MD Latricia, Dat ([id number]) on 05/26/2019 2:30:21 PM Referred By: Confirmed By:Dat Rome MD
[2019-05-26 16:21] VITALS: TEMP 99.4
[2019-05-26] MEDS ORDERED: ALBUTEROL SO4 2.5/IPRATROPIUM 0.5 INH SOL 3 ML VIAL.NEB. NEB ONE ×2 (16:29→16:34)
[2019-05-26] MEDS ORDERED: AZITHROMYCIN 250 MG TABLET PO ONE (16:34)
[2019-05-26] MEDS ORDERED: CEFPODOXIME PROXETIL 100 MG TABLET PO ONE (16:34)
[2019-05-26 16:46] LABS: BLOOD UREA NITROGEN 10.2 mg/dL (7-18); CALCIUM 8.7 mg/dL (8.5-10.1); CREATININE 0.8 mg/dL (0.55-1.3); POTASSIUM 3.5 mmol/L (3.5-5.1)
[2019-05-26] MEDS ORDERED: AZITHROMYCIN 250 MG TABLET ONE (17:03)
[2019-05-26 17:58] VITALS: BP 146/61; PULSE 95
== END 2019-05-26 18:07 | disposition home or self-care (01) ==
LOC: JER 11:00
PROC: 3E0F7GC Introduction of Other Therapeutic Substance into Respiratory Tract, Via Natural or Artificial Opening (ICD-10-PCS; principal; 2019-05-26)
PROC: 3E0337Z Introduction of Electrolytic and Water Balance Substance into Peripheral Vein, Percutaneous Approach (ICD-10-PCS; 2019-05-26)
PROC: 3E0337Z Introduction of Electrolytic and Water Balance Substance into Peripheral Vein, Percutaneous Approach (ICD-10-PCS; 2019-05-26)
DX: E87.6 Hypokalemia (principal); J18.9 Pneumonia, unspecified organism; I11.0 Hypertensive heart disease with heart failure; I50.9 Heart failure, unspecified; D64.9 Anemia, unspecified; E03.9 Hypothyroidism, unspecified; G20 Parkinson's disease; F02.80 Dementia in other diseases classified elsewhere, unspecified severity, without behavioral disturbance, psychotic disturbance, mood disturbance, and anxiety; F31.9 Bipolar disorder, unspecified; J44.9 Chronic obstructive pulmonary disease, unspecified; N39.498 Other specified urinary incontinence; Z88.1 Allergy status to other antibiotic agents
CPT/HCPCS: 36415; 71045-TC-FY; 80048; 80053; 84484; 85025; 93005; 93010; 99285-25

== ENCOUNTER 2019-07-21 14:08 | Inpatient (IN) | payer OTHER, MEDICARE ==
--- NOTE | 2019-07-21 14:48 | PDOC ---
History of Present Illness - General Chief Complaint: Loss of Appetite Stated Complaint: Weakness Time Seen by Provider: 07/21/19 14:48 - History of Present Illness Initial Comments: HPI: 88yo F with PMH of COPD, CHF, HTN, Hypothyroidism, Parkinson's, anemia presenting from home with weakness and congestion. Sister is at the bedside providing collateral history. Patient has seemed softer spoken for the past two weeks. She has also been very slow while ambulating with her walker. Has not fallen recently. While she generally has a hearty appetite, patient has been slow to put the spoon in her mouth and her sister has had to spoonfeed her. Notes a cough today. Patient has a home health aide for four hours daily. Her home health aide recommended that she come to the ED due to congestion. Not on blood thinners. Patient without acute complaints. No chest pain or shortness of breath. History limited due to patient's acute condition vs dementia. ROS: unable to complete (acute condition) PE: General: Awake, alert, and oriented x 2 (states name, year, but not place), in no acute distress Head: No signs of trauma Eyes: EOMI, sclera anicteric ENT: Dry mucus membranes Neck: Normal ROM, supple Lungs: Diffuse rales Cardio: Regular rhythm, S1 and S2 present Abdomen: Soft, nontender. No guarding, no rebound, no masses Extremities: Normal range of motion, Distal pulses present SKIN: Warm, Dry, normal turgor Neurologic: Cranial nerves II through XII grossly intact. Normal speech ED Course/MDM: DDX including but not limited to Failure to thrive, dehydration, ACS, PE, PNA, anemia, metabolic derangement Labs, EKG, CXR Plan for admission EKG: rate 90, Qtc 440, NSR, LVH 07/21/19 16:06 CXR: "Chest : Weakness. Rales. Single AP view of the chest is been sedated. Since 05/26/2019 (was elevated right hemidiaphragm with large heart and sclerotic unfolded aorta. There are congestive changes. There may be some atelectasis or infiltrate at the bases. Increased lung markings have diminished since the earlier study. Correlation recommended. " Bedside ECHO without acute abnormality; no pericardial effusion, mildly hypokinetic apex, otherwise nl LV function Patient asking for food; given sandwich Pending labs Pending urine collection 07/21/19 17:04 CBC WBC 11.1 K/mm3 (4.0-10.0) H 07/21/19 16:38 RBC 4.60 M/mm3 (3.60-5.2) 07/21/19 16:38 Hgb 12.4 GM/dL (10.7-15.3) 07/21/19 16:38 Hct 38.8 % (32.4-45.2) 07/21/19 16:38 MCV 84.3 fl (80-96) 07/21/19 16:38 MCH 26.9 pg (25.7-33.7) 07/21/19 16:38 MCHC 31.9 g/dl (32.0-36.0) L 07/21/19 16:38 RDW 17.0 % (11.6-15.6) H 07/21/19 16:38 Plt Count 288 K/MM3 (134-434) D 07/21/19 16:38 MPV 8.3 fl (7.5-11.1) D 07/21/19 16:38 Absolute Neuts (auto) 8.3 K/mm3 (1.5-8.0) H 07/21/19 16:38 Neutrophils % 75.1 % (42.8-82.8) 07/21/19 16:38 Lymphocytes % 16.1 % (8-40) D 07/21/19 16:38 Monocytes % 5.9 % (3.8-10.2) 07/21/19 16:38 Eosinophils % 2.6 % (0-4.5) 07/21/19 16:38 Basophils % 0.3 % (0-2.0) 07/21/19 16:38 Nucleated RBC % 0 % (0-0) 07/21/19 16:38 Mild leukocytosis No anemia CMP Sodium 142 mmol/L (136-145) 07/21/19 16:42 Potassium 3.9 mmol/L (3.5-5.1) 07/21/19 16:42 Chloride 109 mmol/L (98-107) H 07/21/19 16:42 Carbon Dioxide 27 mmol/L (21-32) 07/21/19 16:42 Anion Gap 6 MMOL/L (8-16) L 07/21/19 16:42 BUN 12.9 mg/dL (7-18) 07/21/19 16:42 Creatinine 0.9 mg/dL (0.55-1.3) 07/21/19 16:42 Est GFR (CKD-EPI)AfAm 66.16 07/21/19 16:42 Est GFR (CKD-EPI)NonAf 57.09 07/21/19 16:42 Random Glucose 106 mg/dL (74-106) 07/21/19 16:42 Calcium 9.4 mg/dL (8.5-10.1) 07/21/19 16:42 Total Bilirubin 0.1 mg/dL (0.2-1) L 07/21/19 16:42 AST 11 U/L (15-37) L 07/21/19 16:42 ALT 12 U/L (13-61) L 07/21/19 16:42 Alkaline Phosphatase 106 U/L (45-117) 07/21/19 16:42 Creatine Kinase 25 U/L (26-192) L 07/21/19 16:38 Troponin I < 0.02 ng/ml (0.00-0.05) 07/21/19 16:38 B-Natriuretic Peptide 236.4 pg/ml (5-450) 07/21/19 16:42 Total Protein 6.3 g/dl (6.4-8.2) L 07/21/19 16:42 Albumin 3.0 g/dl (3.4-5.0) L 07/21/19 16:42 TSH 1.63 uIU/ml (0.358-3.74) 07/21/19 16:42 Electrolytes unremarkable Cr normal No transaminitis Tpn undetectable BNP nl TSH nl Azithromycin ordered for PNA Plan for admission as dehydration is severe Dr. Mccormick microblogged the [facility] team as patient is without a primary care physician Awaiting callback 07/21/19 18:[address] Chuy Henson who accepted patient for admission under Dr. Arora 07/21/19 18:44 Past History - Past Medical History Allergies/Adverse Reactions: Allergies Allergy/AdvReac Type Severity Reaction Status Date / Time amoxicillin [From Augmentin] Allergy Severe Hives Verified 07/21/19 14:20 clavulanic acid Allergy Severe Hives Verified 07/21/19 14:20 [From Augmentin] Home Medications: Ambulatory Orders Levothyroxine [Synthroid -] 50 mcg PO DAILY 08/18/15 Risperidone [Risperdal -] 0.25 mg PO BID 05/09/18 Sertraline HCl [Zoloft] 100 mg PO DAILY 05/23/18 Pantoprazole Sodium [Protonix -] 40 mg PO DAILY #7 tablet.ec 09/17/18 Buspirone HCl [Buspar -] 5 mg PO DAILY 04/05/19 Quetiapine Fumarate [Seroquel -] 2 tab PO BID 04/05/19 Ferrous Sulfate [Iron] 325 mg PO DAILY 07/21/19 Anemia: No Asthma: No Cancer: Yes (Adenoma) Cardiac Disorders: Yes CVA: No COPD: No CHF: Yes Dementia: Yes Diabetes: No GI Disorders: Yes (hiatal hernia) Disorders: Yes (urinary incontinence) HTN: Yes Hypercholesterolemia: No Liver Disease: No Psychiatric Problems: Yes Seizures: Yes (MANIC DEPRESSION) Thyroid Disease: Yes - Surgical History Abdominal Surgery: Yes Appendectomy: No Cardiac Surgery: No Cholecystectomy: Yes Lung Surgery: No Neurologic Surgery: No Orthopedic Surgery: No - Immunization History Immunization Up to Date: Yes - Psycho Social/Smoking Cessation Hx Smoking Status: No Smoking History: Unknown if ever smoked Have you smoked in the past 12 months: No Number of Cigarettes Smoked Daily: 0 If you are a former smoker, when did you quit?: Over 40 years ago Cigars Per Day: 0 Hx Alcohol Use: No Drug/Substance Use Hx: No Substance Use Type: None Hx Substance Use Treatment: No *Physical Exam - Vital Signs Last Vital Signs Temp Pulse Resp BP Pulse Ox 98.7 F 95 H 18 146/85 100 07/21/19 14:20 07/21/19 14:20 07/21/19 14:20 07/21/19 14:20 07/21/19 14:20 ED Treatment Course - LABORATORY CBC & Chemistry Diagram: 07/22/19 07:45 07/22/19 07:45 Discharge - Discharge Information Problems reviewed: Yes Clinical Impression/Diagnosis: Pneumonia Qualifiers: Pneumonia type: due to unspecified organism Laterality: unspecified laterality Lung location: lower lobe of lung Qualified Code(s): J18.9 - Pneumonia, unspecified organism Condition: Guarded - Admission Yes - Follow up/Referral - Patient Discharge Instructions - Post Discharge Activity
--- NOTE | 2019-07-21 15:58 | PDOC ---
Attending Attestation - Resident Resident Name: Armida Richmond - ED Attending Attestation I have performed the following: I have examined & evaluated the patient, The case was reviewed & discussed with the resident, I agree w/resident's findings & plan, Exceptions are as noted - HPI HPI: 07/21/19 16:18 Ms. Baker is an 88 yo F with PMH of COPD, CHF, HTN, Hypothyroidism, Parkinson's , anemia presenting from home with weakness and congestion. Per patient's sister, pt appears weak, she is seems more softly spoken. She has been ambulating very slowly No falls, no head trauma Decreased po intake Pt has had a cough and congestion She was encouraged to come to the ER by FLOOR REFINISHER No chest pain or shortness of breath. 07/21/19 16:23 - Physicial Exam PE: 07/21/19 16:19 PE: General: Awake, alert, and oriented x 2 (states name, year, but not place), in no acute distress Head: No signs of trauma Eyes: EOMI, sclera anicteric ENT: Dry mucus membranes Neck: Normal ROM, supple Lungs: Diffuse rales Cardio: Regular rhythm, S1 and S2 present Abdomen: Soft, nontender. No guarding, no rebound, no masses Extremities: Normal range of motion, Distal pulses present SKIN: Warm, Dry, normal turgor Neurologic: Cranial nerves II through XII grossly intact. Normal speech - Medical Decision Making 07/21/19 16:59 88-year-old female presenting to the emergency department with a complaint of generalized weakness Differential diagnosis is broad and includes Failure to thrive, ACS, dehydration, underlying infection, intracranial pathology We will do: Labs EKG Chest x-ray Gentle hydration Consider admission EKG: Normal sinus rhythm, rate of 90 bpm, axis is normal intervals are normal no ST elevation or depression, T waves are upright 07/21/19 17:25 Laboratory Tests 07/21/19 16:38 WBC 11.1 H Hgb 12.4 Hct 38.8 Plt Count 288 D 07/21/19 17:48 Laboratory Tests 07/21/19 07/21/19 16:38 16:42 BUN 12.9 Creatinine 0.9 Creatine Kinase 25 L Troponin I < 0.02 TSH 1.63 Will admit 07/21/19 18:06
[2019-07-21 17:10] LABS: BASO % 0.3 % (0-2.0); EOS % 2.6 % (0-4.5); HEMATOCRIT 38.8 % (32.4-45.2); HEMOGLOBIN 12.4 GM/dL (10.7-15.3); LYMPH % 16.1 % (8-40); MCH 26.9 pg (25.7-33.7); MCHC 31.9 g/dl (32.0-36.0); MEAN CELL VOLUME 84.3 fl (80-96); MEAN PLT VOLUME 8.3 fl (7.5-11.1); MONO % 5.9 % (3.8-10.2); NEUT % 75.1 % (42.8-82.8); PLATELET COUNT 288 K/MM3 (134-434); WHITE BLOOD COUNT 11.1 K/mm3 (4.0-10.0)
[2019-07-21 17:26] LABS: INR 1.03 (0.83-1.09); PROTHROMBIN TIME (PATIENT) 12.2 SEC (9.7-13.0)
[2019-07-21 17:28] LABS: ACTIVATED PTT 34.3 SECONDS (25.2-36.5)
[2019-07-21 17:46] LABS: BILIRUBIN,TOTAL 0.1 mg/dL (0.2-1); BLOOD UREA NITROGEN 12.9 mg/dL (7-18); CALCIUM 9.4 mg/dL (8.5-10.1); CREATININE 0.9 mg/dL (0.55-1.3); N-TERMINAL BNP 236.4 pg/ml (5-450); POTASSIUM 3.9 mmol/L (3.5-5.1); TOT PROT 6.3 g/dl (6.4-8.2)
[2019-07-21] MEDS ORDERED: AZITHROMYCIN IVPB 500 MG in DEXTROSE 5%-WATER - 250 ML IVPB ONE (18:07)
[2019-07-21] MEDS ORDERED: SODIUM CHLORIDE 500 ML IV STA (18:08)
--- NOTE | 2019-07-21 18:44 | HP ---
CHIEF COMPLAINT: Generalized weakness PCP: None HISTORY OF PRESENT ILLNESS: Pt is an 88 y/o F with a significant past medical history of COPD, HFpEF, HTN , ESBL UTIs, Hypothyroidism, Parkinson's, anemia who presented to [facility] due to weakness. Pt is a poor historian; sister at bedside providing history. Pt was observed today to be very weak. Pt could barely get out of her bed and could not ambulate up the stairs in her home. Pt has also been experiencing diarrhea for 1 week duration. Diarrhea is described as nonbloody and copious. Sister nor patient can quantify how many episodes per day. Denies fever, chills, headache, chest pain, shortness of breath, abdominal pain, or pedel edema. PMH as above SocialHx- Denies Tobacco/Alcohol/Illicit drug use SurgHx- Hiatal Hernia Repair ER course was notable for: (1) cxr--> congestive changes. possible infiltrates at bases. (2) WBC 11.1 (3) Allergies amoxicillin [From Augmentin] Allergy (Severe, Verified 07/21/19 14:20) Hives hives/rash clavulanic acid [From Augmentin] Allergy (Severe, Verified 07/21/19 14:20) Hives hives/rash HOME MEDICATIONS: Home Medications Medication Instructions Recorded Levothyroxine [Synthroid -] 50 mcg PO DAILY 08/18/15 Risperidone [Risperdal -] 0.25 mg PO BID 05/09/18 Sertraline HCl [Zoloft] 100 mg PO DAILY 05/23/18 Pantoprazole Sodium [Protonix -] 40 mg PO DAILY #7 tablet.ec 09/17/18 Buspirone HCl [Buspar -] 5 mg PO ONCE 04/05/19 Quetiapine Fumarate [Seroquel -] 2 tab PO BID 04/05/19 Azithromycin 250 mg PO DAILY 4 Days #4 tablet 05/26/19 Cefpodoxime Proxetil [Vantin -] 200 mg PO Q12H 7 Days #14 tablet 05/26/19 Potassium Chloride 40 meq PO DAILY #200 ml 05/26/19 REVIEW OF SYSTEMS CONSTITUTIONAL: PRESENT generalized weakness HEENT: Absent: rhinorrhea, nasal congestion, throat pain, throat swelling, difficulty swallowing, mouth swelling, ear pain, eye pain, visual changes CARDIOVASCULAR: Absent: chest pain, syncope, palpitations, irregular heart rate, lightheadedness , peripheral edema RESPIRATORY: Absent: cough, shortness of breath, dyspnea with exertion, orthopnea, wheezing, stridor, hemoptysis GASTROINTESTINAL: PRESENT diarrhea GENITOURINARY: Absent: dysuria, frequency, urgency, hesitancy, hematuria, flank pain, genital pain MUSCULOSKELETAL: Absent: myalgia, arthralgia, joint swelling, back pain, neck pain SKIN: Absent: rash, itching, pallor HEMATOLOGIC/IMMUNOLOGIC: Absent: easy bleeding, easy bruising, lymphadenopathy, frequent infections ENDOCRINE: Absent: unexplained weight gain, unexplained weight loss, heat intolerance, cold intolerance NEUROLOGIC: Absent: headache, focal weakness or paresthesias, dizziness, unsteady gait, seizure, mental status changes, bladder or bowel incontinence PSYCHIATRIC: Absent: anxiety, depression, suicidal or homicidal ideation, hallucinations. PHYSICAL EXAMINATION Vital Signs - 24 hr 07/21/19 14:20 Temperature 98.7 F Pulse Rate 95 H Respiratory 18 Rate Blood Pressure 146/85 O2 Sat by Pulse 100 Oximetry (%) GENERAL: AAOx2, NAD HEAD: Normal with no signs of trauma. EYES: EOMI Sclera Clear EARS, NOSE, THROAT: MMM NECK: NO JVD appreciated LUNGS: Crackles b/l bases HEART: RRR S1S2 ABDOMEN: Soft, nondistended nontender . LOWER EXTREMITIES: No CCE NEUROLOGICAL: Cranial nerves II-XII intact. Laboratory Results - last 24 hr 07/21/19 07/21/19 07/21/19 16:38 16:38 16:38 WBC 11.1 H RBC 4.60 Hgb 12.4 Hct 38.8 MCV 84.3 MCH 26.9 MCHC 31.9 L RDW 17.0 H Plt Count 288 D MPV 8.3 D Absolute Neuts (auto) 8.3 H Neutrophils % 75.1 Lymphocytes % 16.1 D Monocytes % 5.9 Eosinophils % 2.6 Basophils % 0.3 Nucleated RBC % 0 PT with INR 12.20 INR 1.03 PTT (Actin FS) 34.3 Sodium Potassium Chloride Carbon Dioxide Anion Gap BUN Creatinine Est GFR (CKD-EPI)AfAm Est GFR (CKD-EPI)NonAf Random Glucose Calcium Total Bilirubin AST ALT Alkaline Phosphatase Creatine Kinase 25 L Troponin I < 0.02 B-Natriuretic Peptide Total Protein Albumin TSH 07/21/19 16:42 WBC RBC Hgb Hct MCV MCH MCHC RDW Plt Count MPV Absolute Neuts (auto) Neutrophils % Lymphocytes % Monocytes % Eosinophils % Basophils % Nucleated RBC % PT with INR INR PTT (Actin FS) Sodium 142 Potassium 3.9 Chloride 109 H Carbon Dioxide 27 Anion Gap 6 L BUN 12.9 Creatinine 0.9 Est GFR (CKD-EPI)AfAm 66.16 Est GFR (CKD-EPI)NonAf 57.09 Random Glucose 106 Calcium 9.4 Total Bilirubin 0.1 L AST 11 L ALT 12 L Alkaline Phosphatase 106 Creatine Kinase Troponin I B-Natriuretic Peptide 236.4 Total Protein 6.3 L Albumin 3.0 L TSH 1.63 ASSESSMENT/PLAN: Pt is an 88 y/o F with a significant past medical history of COPD, CHF, HTN, ESBL UTIs, Hypothyroidism, Parkinson's, anemia who presented to [facility] due to weakness. #Failure to Thrive 2/2 dehydration/Diarrhea -Will place on LR@ 75 standing -WBC 11.1, not significant. Will order BMP, CBC in am -Stool Ova&parasites -C-Diff toxin and Antigen -Imodium for Diarrhea -Repeat CXR in am -UA, Urine culture, Blood culture # Pneumonia -CXR---> Congestive changes. There may be some atelectasis or infiltrate at bases. -Pt afebrile, WBC 11.1 not significantly elevated, CURB65 score 1. Pt appears to have a chronic leukocytosis. -Will not place on antibiotics at this juncture in light of above. -Repeat CXR in am. -Flu Swab #FEN LR@75 cc/hr Monitor Electrolytes Sodium controlled diet #DVT ppx: -HEPSQBID in light of weight #Dispo: -Med-Surg Visit type - Emergency Visit Emergency Visit: Yes ED Registration Date: 07/21/19 Care time: The patient presented to the Emergency Department on the above date and was hospitalized for further evaluation of their emergent condition. - New Patient This patient is new to me today: Yes Date on this admission: 07/21/19 - Critical Care Critical Care patient: No ATTENDING PHYSICIAN STATEMENT I saw and evaluated the patient. I reviewed the resident's note and discussed the case with the resident. I agree with the resident's findings and plan as documented. SUBJECTIVE: OBJECTIVE: ASSESSMENT AND PLAN:
[2019-07-21] MEDS ORDERED: AZITHROMYCIN IVPB 500 MG/250 ML BAG IVPB ONE (20:02)
--- NOTE | 2019-07-21 20:03 | PN ---
Teaching Attending Note Name of Resident: Chuy Henson ATTENDING PHYSICIAN STATEMENT I saw and evaluated the patient. I reviewed the resident's note and discussed the case with the resident. I agree with the resident's findings and plan as documented. SUBJECTIVE: 88 y/o F with a significant past medical history of COPD, HFpEF, HTN, ESBL UTIs , Hypothyroidism, Parkinson's, anemia Presenting to hospital for generalized weakness. Patient was brought with family who observed that she has been very weak and could barely get out of bed and slowly ambulating. Loose stools for the past week, nonbloody unable to quantify how many episodes daily. No history of travel or sick contacts. OBJECTIVE: Last Vital Signs Temp Pulse Resp BP Pulse Ox 97.3 F L 96 H 17 141/69 93 L 07/21/19 19:25 07/21/19 19:25 07/21/19 19:25 07/21/19 19:25 07/21/19 19:25 GENERAL: Elderly, frail, no acute distress HEENT: Normocephalic, atraumatic. PERRLA, EOMI. No conjunctival pallor. Sclera are non- icteric. Moist mucous membranes. Oropharynx is clear. NECK: Supple. Full ROM. No JVD. Carotid pulses 2+ and symmetric, without bruits. No thyromegaly. No lymphadenopathy. CARDIOVASCULAR: Regular rate and rhythm. No murmurs, rubs, or gallops. Distal pulses are 2+ and symmetric. PULMONARY: No evidence of respiratory distress. Lungs clear to auscultation bilaterally. No wheezing, rales or rhonchi. ABDOMINAL: Soft. Non-tender. Non-distended. No rebound or guarding. No organomegaly. Normoactive bowel sounds. MUSCULOSKELETAL Normal range of motion at all joints. No bony deformities or tenderness. No CVA tenderness. EXTREMITIES: No cyanosis. No clubbing. No edema. No calf tenderness. SKIN: Warm and dry. Normal capillary refill. No rashes. No jaundice. PSYCHIATRIC: Cooperative. Good eye contact. Appropriate mood and affect. Abnormal Lab Results 07/21/19 07/21/19 07/21/19 16:38 16:38 16:42 WBC 11.1 H MCHC 31.9 L RDW 17.0 H Absolute Neuts (auto) 8.3 H Chloride 109 H Anion Gap 6 L Total Bilirubin 0.1 L AST 11 L ALT 12 L Creatine Kinase 25 L Total Protein 6.3 L Albumin 3.0 L Imaging reviewed ASSESSMENT AND PLAN: 80-year-old woman with generalized weakness and diarrhea. Suspect possible dehydration. MedSurg IV fluid hydration with lactated Ringer solution Imodium as needed if diarrhea Bedrest and fall precautions Restart home medications Send stool for C. difficile, culture, WBC count #Chronic leukocytosis Trend CBC Consider outpatient heme-onc evaluation #Hypothyroidism Continue home dose [id number] mcg p.o. daily Send TSH Heparin subcutaneously for DVT prophylaxis
[2019-07-21] MEDS ORDERED: LOPERAMIDE HCL 1 MG/5 ML UNIT DOSE CUP PO ONE (20:27)
[2019-07-21] MEDS: LACTATED RINGERS SOLUTION 1,000 ML/1,000 ML INFUS.BAG IV SCH (21:42)
[2019-07-21] MEDS ORDERED: risperiDONE 0.25 MG TABLET (FP) PO SCH (22:00)
[2019-07-21 22:23] LABS: URINE APPEARANCE CLEAR; URINE BILIRUBIN NEGATIVE (NEGATIVE); URINE COLOR YELLOW; URINE GLUCOSE (UA) NEGATIVE (NEGATIVE); URINE KETONE NEGATIVE (NEGATIVE); URINE LEUK ESTERASE NEGATIVE (NEGATIVE); URINE NITRITE NEGATIVE (NEGATIVE); URINE PROTEIN NEGATIVE (NEGATIVE); URINE UROBILINOGEN 0.2 mg/dL (0.2-1.0)
[2019-07-21] MEDS ORDERED: QUEtiapine FUMARATE 100 MG TABLET (FP) ONE (22:37)
[2019-07-21] MEDS ORDERED: HEPARIN NA (PORCINE) 5,000 UNITS/ML 1ML VIAL ONE (22:38)
[2019-07-21] MEDS ORDERED: risperiDONE 0.5 MG TABLET (FP) PO SCH ×2 (22:42→23:00)
[2019-07-21] MEDS ORDERED: risperiDONE 0.5 MG TABLET (FP) ONE (22:44)
[2019-07-21] MEDS: HEPARIN NA (PORCINE) 5,000 UNITS/ML 1ML VIAL SQ SCH (23:00)
[2019-07-21] MEDS: QUEtiapine FUMARATE 50 MG TABLET PO SCH (23:00)
[2019-07-22 00:41] VITALS: BMI 17.2
[2019-07-22] MEDS: LACTATED RINGERS SOLUTION 1,000 ML/1,000 ML INFUS.BAG IV SCH (06:33)
[2019-07-22 09:22] LABS: BASO % 0.6 % (0-2.0); EOS % 2.8 % (0-4.5); HEMATOCRIT 37.7 % (32.4-45.2); HEMOGLOBIN 12.1 GM/dL (10.7-15.3); LYMPH % 19.6 % (8-40); MCH 26.9 pg (25.7-33.7); MCHC 32.3 g/dl (32.0-36.0); MEAN CELL VOLUME 83.5 fl (80-96); MEAN PLT VOLUME 8.2 fl (7.5-11.1); MONO % 7.7 % (3.8-10.2); NEUT % 69.3 % (42.8-82.8); PLATELET COUNT 302 K/MM3 (134-434); RBC 4.51 M/mm3 (3.60-5.2); RDW 17.2 % (11.6-15.6); WHITE BLOOD COUNT 9.4 K/mm3 (4.0-10.0)
[2019-07-22 09:27] LABS: INR 1.03 (0.83-1.09); PROTHROMBIN TIME (PATIENT) 12.2 SEC (9.7-13.0)
[2019-07-22] MEDS: QUEtiapine FUMARATE 50 MG TABLET PO SCH ×2 (09:35→22:03)
[2019-07-22] MEDS: risperiDONE 0.25 MG TABLET (FP) PO SCH ×2 (09:36→22:03)
[2019-07-22] MEDS: busPIRone HCL 5 MG TABLET PO SCH (09:36)
[2019-07-22] MEDS: FERROUS SO4 325 MG TABLET (FP) PO SCH (09:36)
[2019-07-22] MEDS: PANTOPRAZOLE 40 MG TABLET (FP) PO SCH (09:36)
[2019-07-22] MEDS: LEVOTHYROXINE NA 50 MCG TABLET (FP) PO SCH (09:37)
[2019-07-22] MEDS: HEPARIN NA (PORCINE) 5,000 UNITS/ML 1ML VIAL SQ SCH ×2 (09:37→22:03)
[2019-07-22] MEDS: SERTRALINE HCL 50 MG TABLET (FP) PO SCH (09:37)
[2019-07-22 09:47] LABS: BILIRUBIN,TOTAL 0.3 mg/dL (0.2-1); BLOOD UREA NITROGEN 13.8 mg/dL (7-18); CALCIUM 9.1 mg/dL (8.5-10.1); CREATININE 0.8 mg/dL (0.55-1.3); PHOSPHOROUS 2.7 mg/dL (2.5-4.9); POTASSIUM 3.8 mmol/L (3.5-5.1); TOT PROT 6.1 g/dl (6.4-8.2)
[2019-07-22] MEDS ORDERED: FLU VACCINE QUAD 60 MCG/0.5 ML (MDV 19-20) IM ONE (10:00)
--- NOTE | 2019-07-22 10:35 | EKG ---
Test Reason : Blood Pressure : / mmHG Vent. Rate : 090 BPM Atrial Rate : 090 BPM P-R Int : 174 ms QRS Dur : 086 ms QT Int : 360 ms P-R-T Axes : 027 -29 014 degrees QTc Int : 440 ms NORMAL SINUS RHYTHM VOLTAGE CRITERIA FOR LEFT VENTRICULAR HYPERTROPHY ABNORMAL ECG WHEN COMPARED WITH ECG OF 26-MAY-2019 12:31, PREMATURE VENTRICULAR COMPLEXES ARE NO LONGER PRESENT W[place] INTERVAL HAS DECREASED T WAVE INVERSION NO LONGER EVIDENT IN ANTERIOR LEADS QT HAS SHORTENED Confirmed by SAYRA SINGH, YIFAN ([id number]) on 07/22/2019 10:34:54 AM Referred By: Confirmed By:YIFAN COLBERT MD
--- NOTE | 2019-07-22 10:36 | EKG ---
Test Reason : Blood Pressure : / mmHG Vent. Rate : 100 BPM Atrial Rate : 100 BPM P-R Int : 196 ms QRS Dur : 086 ms QT Int : 364 ms P-R-T Axes : 047 -38 -19 degrees QTc Int : 469 ms NORMAL SINUS RHYTHM LEFT AXIS DEVIATION VOLTAGE CRITERIA FOR LEFT VENTRICULAR HYPERTROPHY NONSPECIFIC T WAVE ABNORMALITY ABNORMAL ECG WHEN COMPARED WITH ECG OF 21-JUL-2019 15:06, T WAVE INVERSION NOW EVIDENT IN ANTERIOR LEADS Confirmed by SAYRA SINGH, YIFAN ([id number]) on 07/22/2019 10:36:19 AM Referred By: Andre TYLER Confirmed By:YIFAN COLBERT MD
[2019-07-22 12:39] LABS: N-TERMINAL BNP 1216.4 pg/ml (5-450)
--- NOTE | 2019-07-22 15:11 | PN ---
Teaching Attending Note Name of Resident: Adrian Salvador ATTENDING PHYSICIAN STATEMENT I saw and evaluated the patient. I reviewed the resident's note and discussed the case with the resident. I agree with the resident's findings and plan as documented. SUBJECTIVE: Feels well - no complaints. reports diarrhea. No abdominal pain/ nausea/vomiting/fever/chills. OBJECTIVE: Afebrile, Hemodynamically Stable. Last Vital Signs Temp Pulse Resp BP Pulse Ox 97.8 F 93 H 18 100/50 L 96 07/22/19 08:42 07/22/19 08:42 07/22/19 09:00 07/22/19 08:42 07/22/19 09:00 HEENT - Atraumatic, Normocephalic. Heart - S1, S2, soft SM Lungs -few basal crackles Abdomen - soft non-tender. Bowel Sounds normal. Extremities - no edema, no calf tenderness. Neuro - AAO x 3. Moving all 4 extremities. Laboratory Results - last 24 hr 07/21/19 07/21/19 07/21/19 16:38 16:38 16:38 WBC 11.1 H RBC 4.60 Hgb 12.4 Hct 38.8 MCV 84.3 MCH 26.9 MCHC 31.9 L RDW 17.0 H Plt Count 288 D MPV 8.3 D Absolute Neuts (auto) 8.3 H Neutrophils % 75.1 Lymphocytes % 16.1 D Monocytes % 5.9 Eosinophils % 2.6 Basophils % 0.3 Nucleated RBC % 0 PT with INR 12.20 INR 1.03 PTT (Actin FS) 34.3 Sodium Potassium Chloride Carbon Dioxide Anion Gap BUN Creatinine Est GFR (CKD-EPI)AfAm Est GFR (CKD-EPI)NonAf Random Glucose Calcium Phosphorus Magnesium Total Bilirubin AST ALT Alkaline Phosphatase Creatine Kinase 25 L Troponin I < 0.02 B-Natriuretic Peptide Total Protein Albumin TSH Urine Color Urine Appearance Urine pH Ur Specific [place] Urine Protein Urine Glucose (UA) Urine Ketones Urine Blood Urine Nitrite Urine Bilirubin Urine Urobilinogen Ur Leukocyte Esterase Influenza A (Rapid) Influenza B (Rapid) 07/21/19 07/21/19 07/22/19 16:42 22:00 00:27 WBC RBC Hgb Hct MCV MCH MCHC RDW Plt Count MPV Absolute Neuts (auto) Neutrophils % Lymphocytes % Monocytes % Eosinophils % Basophils % Nucleated RBC % PT with INR INR PTT (Actin FS) Sodium 142 Potassium 3.9 Chloride 109 H Carbon Dioxide 27 Anion Gap 6 L BUN 12.9 Creatinine 0.9 Est GFR (CKD-EPI)AfAm 66.16 Est GFR (CKD-EPI)NonAf 57.09 Random Glucose 106 Calcium 9.4 Phosphorus Magnesium Total Bilirubin 0.1 L AST 11 L ALT 12 L Alkaline Phosphatase 106 Creatine Kinase Troponin I B-Natriuretic Peptide 236.4 Total Protein 6.3 L Albumin 3.0 L TSH 1.63 Urine Color Yellow Urine Appearance Clear Urine pH 6.0 Ur Specific [place] 1.012 Urine Protein Negative Urine Glucose (UA) Negative Urine Ketones Negative Urine Blood Negative Urine Nitrite Negative Urine Bilirubin Negative Urine Urobilinogen 0.2 Ur Leukocyte Esterase Negative Influenza A (Rapid) Negative Influenza B (Rapid) Negative 07/22/19 07/22/19 07/22/19 07:45 07:45 07:45 WBC 9.4 RBC 4.51 Hgb 12.1 Hct 37.7 MCV 83.5 MCH 26.9 MCHC 32.3 RDW 17.2 H Plt Count 302 MPV 8.2 Absolute Neuts (auto) 6.5 Neutrophils % 69.3 Lymphocytes % 19.6 D Monocytes % 7.7 Eosinophils % 2.8 Basophils % 0.6 Nucleated RBC % 0 PT with INR 12.20 INR 1.03 PTT (Actin FS) 35.0 Sodium 141 Potassium 3.8 Chloride 107 Carbon Dioxide 30 Anion Gap 4 L BUN 13.8 Creatinine 0.8 Est GFR (CKD-EPI)AfAm 76.29 Est GFR (CKD-EPI)NonAf 65.82 Random Glucose 69 L Calcium 9.1 Phosphorus 2.7 Magnesium 2.0 Total Bilirubin 0.3 AST 11 L ALT 11 L Alkaline Phosphatase 103 Creatine Kinase Troponin I B-Natriuretic Peptide 1216.4 H Total Protein 6.1 L Albumin 3.0 L TSH Urine Color Urine Appearance Urine pH Ur Specific [place] Urine Protein Urine Glucose (UA) Urine Ketones Urine Blood Urine Nitrite Urine Bilirubin Urine Urobilinogen Ur Leukocyte Esterase Influenza A (Rapid) Influenza B (Rapid) Current Medications Generic Name Dose Route Start Last Admin Trade Name Freq PRN Reason Stop Dose Admin Buspirone HCl 5 mg 07/22/19 10:00 07/22/19 09:36 Buspar - PO 5 mg DAILY MISTI Administration Ferrous Sulfate 325 mg 07/22/19 10:00 07/22/19 09:36 Feosol - PO 325 mg DAILY MISTI Administration Heparin Sodium (Porcine) 5,000 unit 07/21/19 22:00 07/22/19 09:37 Heparin - SQ 5,000 unit BID MISTI Administration Levothyroxine Sodium 50 mcg 07/22/19 07:00 07/22/19 09:37 Synthroid - PO 50 mcg ACBK MISTI Administration Pantoprazole Sodium 40 mg 07/22/19 10:00 07/22/19 09:36 Protonix - PO 40 mg DAILY MISTI Administration Quetiapine Fumarate 100 mg 07/21/19 22:00 07/22/19 09:35 Seroquel - PO 100 mg BID MISTI Administration Risperidone 0.25 mg 07/22/19 07:09 07/22/19 09:36 Risperdal - PO 0.25 mg BID MISTI Administration Sertraline HCl 100 mg 07/22/19 10:00 07/22/19 09:37 Zoloft - PO 100 mg DAILY MISTI Administration Home Medications Medication Instructions Recorded Levothyroxine [Synthroid -] 50 mcg PO DAILY 08/18/15 Risperidone [Risperdal -] 0.25 mg PO BID 05/09/18 Sertraline HCl [Zoloft] 100 mg PO DAILY 05/23/18 Pantoprazole Sodium [Protonix -] 40 mg PO DAILY #7 tablet.ec 09/17/18 Buspirone HCl [Buspar -] 5 mg PO DAILY 04/05/19 Quetiapine Fumarate [Seroquel -] 2 tab PO BID 04/05/19 Ferrous Sulfate [Iron] 325 mg PO DAILY 07/21/19 ASSESSMENT AND PLAN: 88 year old female with history significant for COPD, Chronic Diastolic CHF, HTN , Hx ESBL UTIs, Hypothyroidism, Parkinson's Disease, Chronic Anemia, presents with generalized weakness and diarrhea. 1. Diarrhea Stool sample for Cdiff, Stool Cx Afebrile, Hemodynamically Stable without abdominal pain/nausea/vomiting/ hematochezia. 2. Generalized weakness, lethargy secondary to Dehydration due to diarrhea. IV hydration stopped due to few basal crackles/elevated BNP PT Urine/Blood Cx pending. 3. Hypothyroidism - TSH 1.63. Continue Synthroid 50mcg daily. 4. Dementia - Continue Quetiapine, Risperdione, Sertraline, Buspirone. DVT Px - Heparin SQ
--- NOTE | 2019-07-22 15:17 | PN ---
Physical Exam: SUBJECTIVE: Patient seen and examined at the bedside. Was very hard of hearing. Stated that she sometimes has a cough. Noted that she continued to have some diarrhea. Was alert and oriented x3. Denied cp, sob, abd pain, n/v/c/d, fever, chills. OBJECTIVE: Vital Signs Period Temp Pulse Resp BP Sys/Riggins Pulse Ox Last 24 Hr 97.3 F-97.8 F 93-103 17-20 100-147/50-83 93-96 GENERAL: The patient is awake, alert, and fully oriented, in no acute distress. Hard of hearing. HEAD: Normal with no signs of trauma. EYES: PERRL, extraocular movements intact, sclera anicteric, conjunctiva clear. NECK: Trachea midline, full range of motion, supple. No JVD noted LUNGS: Breath sounds equal, noted crackles in the bilateral bases R>L. No wheezes auscultated. HEART: Regular rate and rhythm, S1, S2 without murmur or rub. ABDOMEN: Soft, nontender, nondistended, normoactive bowel sounds, no guarding, no rebound. EXTREMITIES: 2+ pulses, warm, well-perfused, no edema. NEUROLOGICAL: Cranial nerves II through XII grossly intact. 5/5 muscle strength in the lower extremities. Mild rigidity in the upper extremities. PSYCH: Normal mood, normal affect. Easily distracted. SKIN: Warm, dry, normal turgor, no rashes or lesions noted. Laboratory Results - last 24 hr 07/21/19 07/21/19 07/21/19 16:38 16:38 16:38 WBC 11.1 H RBC 4.60 Hgb 12.4 Hct 38.8 MCV 84.3 MCH 26.9 MCHC 31.9 L RDW 17.0 H Plt Count 288 D MPV 8.3 D Absolute Neuts (auto) 8.3 H Neutrophils % 75.1 Lymphocytes % 16.1 D Monocytes % 5.9 Eosinophils % 2.6 Basophils % 0.3 Nucleated RBC % 0 PT with INR 12.20 INR 1.03 PTT (Actin FS) 34.3 Sodium Potassium Chloride Carbon Dioxide Anion Gap BUN Creatinine Est GFR (CKD-EPI)AfAm Est GFR (CKD-EPI)NonAf Random Glucose Calcium Phosphorus Magnesium Total Bilirubin AST ALT Alkaline Phosphatase Creatine Kinase 25 L Troponin I < 0.02 B-Natriuretic Peptide Total Protein Albumin TSH Urine Color Urine Appearance Urine pH Ur Specific [place] Urine Protein Urine Glucose (UA) Urine Ketones Urine Blood Urine Nitrite Urine Bilirubin Urine Urobilinogen Ur Leukocyte Esterase Influenza A (Rapid) Influenza B (Rapid) 07/21/19 07/21/19 07/22/19 16:42 22:00 00:27 WBC RBC Hgb Hct MCV MCH MCHC RDW Plt Count MPV Absolute Neuts (auto) Neutrophils % Lymphocytes % Monocytes % Eosinophils % Basophils % Nucleated RBC % PT with INR INR PTT (Actin FS) Sodium 142 Potassium 3.9 Chloride 109 H Carbon Dioxide 27 Anion Gap 6 L BUN 12.9 Creatinine 0.9 Est GFR (CKD-EPI)AfAm 66.16 Est GFR (CKD-EPI)NonAf 57.09 Random Glucose 106 Calcium 9.4 Phosphorus Magnesium Total Bilirubin 0.1 L AST 11 L ALT 12 L Alkaline Phosphatase 106 Creatine Kinase Troponin I B-Natriuretic Peptide 236.4 Total Protein 6.3 L Albumin 3.0 L TSH 1.63 Urine Color Yellow Urine Appearance Clear Urine pH 6.0 Ur Specific [place] 1.012 Urine Protein Negative Urine Glucose (UA) Negative Urine Ketones Negative Urine Blood Negative Urine Nitrite Negative Urine Bilirubin Negative Urine Urobilinogen 0.2 Ur Leukocyte Esterase Negative Influenza A (Rapid) Negative Influenza B (Rapid) Negative 07/22/19 07/22/19 07/22/19 07:45 07:45 07:45 WBC 9.4 RBC 4.51 Hgb 12.1 Hct 37.7 MCV 83.5 MCH 26.9 MCHC 32.3 RDW 17.2 H Plt Count 302 MPV 8.2 Absolute Neuts (auto) 6.5 Neutrophils % 69.3 Lymphocytes % 19.6 D Monocytes % 7.7 Eosinophils % 2.8 Basophils % 0.6 Nucleated RBC % 0 PT with INR 12.20 INR 1.03 PTT (Actin FS) 35.0 Sodium 141 Potassium 3.8 Chloride 107 Carbon Dioxide 30 Anion Gap 4 L BUN 13.8 Creatinine 0.8 Est GFR (CKD-EPI)AfAm 76.29 Est GFR (CKD-EPI)NonAf 65.82 Random Glucose 69 L Calcium 9.1 Phosphorus 2.7 Magnesium 2.0 Total Bilirubin 0.3 AST 11 L ALT 11 L Alkaline Phosphatase 103 Creatine Kinase Troponin I B-Natriuretic Peptide 1216.4 H Total Protein 6.1 L Albumin 3.0 L TSH Urine Color Urine Appearance Urine pH Ur Specific [place] Urine Protein Urine Glucose (UA) Urine Ketones Urine Blood Urine Nitrite Urine Bilirubin Urine Urobilinogen Ur Leukocyte Esterase Influenza A (Rapid) Influenza B (Rapid) Active Medications Generic Name Dose Route Start Last Admin Trade Name Maria M PRN Reason Stop Dose Admin Buspirone HCl 5 mg 07/22/19 10:00 07/22/19 09:36 Buspar - PO 5 mg DAILY MISTI Administration Ferrous Sulfate 325 mg 07/22/19 10:00 07/22/19 09:36 Feosol - PO 325 mg DAILY MISTI Administration Heparin Sodium (Porcine) 5,000 unit 07/21/19 22:00 07/22/19 09:37 Heparin - SQ 5,000 unit BID MISTI Administration Levothyroxine Sodium 50 mcg 07/22/19 07:00 07/22/19 09:37 Synthroid - PO 50 mcg ACBK MISTI Administration Pantoprazole Sodium 40 mg 07/22/19 10:00 07/22/19 09:36 Protonix - PO 40 mg DAILY MISTI Administration Quetiapine Fumarate 100 mg 07/21/19 22:00 07/22/19 09:35 Seroquel - PO 100 mg BID MISTI Administration Risperidone 0.25 mg 07/22/19 07:09 07/22/19 09:36 Risperdal - PO 0.25 mg BID MISTI Administration Sertraline HCl 100 mg 07/22/19 10:00 07/22/19 09:37 Zoloft - PO 100 mg DAILY MISTI Administration ASSESSMENT/PLAN: Nandini Baker is an 88 year old female with a significant past medical history of COPD, CHF, HTN, ESBL UTIs, Hypothyroidism, Parkinson's, anemia who presented to [facility] due to weakness and diarrhea. Failure to Thrive 2/2 dehydration/Diarrhea - WBC 11.1 improved to 9.4, remains afebrile - Stool Ova&parasites - C-Diff toxin and Antigen - Imodium for Diarrhea - UA within normal limits - Urine culture, Blood culture pending - continue oral hydration - flu swab negative - physical therapy Cough - CXR and repeat CXR showing congestive changes - fluids stopped and will monitor off fluids - Flu Swab negative - repeat CXR in AM Hypothyroidism - TSH 1.63 - continue home synthroid 50mcg daily Iron deficiency - continue home iron supplementation FEN - no standing fluids - continue to monitor electrolytes and replete as necessary - Sodium controlled diet Prophylaxis - heparin 5000 units subq bid Dispo - contine to monitor on Med-Surg Visit type - Emergency Visit Emergency Visit: No - New Patient This patient is new to me today: Yes Date on this admission: 07/22/19 - Critical Care Critical Care patient: No
[2019-07-23] MEDS: LEVOTHYROXINE NA 50 MCG TABLET (FP) PO SCH (06:21)
[2019-07-23 09:31] LABS: HEMATOCRIT 38.2 % (32.4-45.2); HEMOGLOBIN 12.5 GM/dL (10.7-15.3); MCHC 32.7 g/dl (32.0-36.0); MEAN CELL VOLUME 82.6 fl (80-96); PLATELET COUNT 317 K/MM3 (134-434); RBC 4.63 M/mm3 (3.60-5.2); RDW 17.2 % (11.6-15.6); WHITE BLOOD COUNT 9.1 K/mm3 (4.0-10.0)
[2019-07-23] MEDS: SERTRALINE HCL 50 MG TABLET (FP) PO SCH (09:41)
[2019-07-23] MEDS: PANTOPRAZOLE 40 MG TABLET (FP) PO SCH (09:41)
[2019-07-23] MEDS: busPIRone HCL 5 MG TABLET PO SCH (09:42)
[2019-07-23] MEDS: FERROUS SO4 325 MG TABLET (FP) PO SCH (09:42)
[2019-07-23] MEDS: QUEtiapine FUMARATE 50 MG TABLET PO SCH (09:42)
[2019-07-23] MEDS: HEPARIN NA (PORCINE) 5,000 UNITS/ML 1ML VIAL SQ SCH (09:42)
[2019-07-23] MEDS ORDERED: PT OWN MED DRAWER 7, Y5N ONE (09:45)
[2019-07-23] MEDS: risperiDONE 0.25 MG TABLET (FP) PO SCH (09:49)
[2019-07-23 09:58] LABS: BLOOD UREA NITROGEN 11.7 mg/dL (7-18); CALCIUM 9.3 mg/dL (8.5-10.1); CREATININE 0.9 mg/dL (0.55-1.3)
--- NOTE | 2019-07-23 11:37 | PN ---
Teaching Attending Note Name of Resident: Adrian Salvador ATTENDING PHYSICIAN STATEMENT I saw and evaluated the patient. I reviewed the resident's note and discussed the case with the resident. I agree with the resident's findings and plan as documented. SUBJECTIVE: Feels well - no complaints. No further diarrheal episodes. No abdominal pain/nausea/vomiting/fever/chills. OBJECTIVE: Afebrile, Hemodynamically Stable. Last Vital Signs Temp Pulse Resp BP Pulse Ox 98.0 F 101 H 18 149/86 93 L 07/23/19 09:00 07/23/19 09:00 07/23/19 09:00 07/23/19 09:00 07/23/19 09:00 Heart - S1, S2, soft SM Lungs -few basal crackles Abdomen - soft non-tender. Bowel Sounds normal. Extremities - no edema, no calf tenderness. Neuro - AAO x 3. Moving all 4 extremities. Laboratory Results - last 24 hr 07/22/19 07/23/19 07/23/19 07:45 06:00 08:40 WBC 9.1 RBC 4.63 Hgb 12.5 Hct 38.2 MCV 82.6 MCH 27.0 MCHC 32.7 RDW 17.2 H Plt Count 317 MPV 8.0 Sodium 141 141 Potassium 3.8 4.0 Chloride 107 107 Carbon Dioxide 30 30 Anion Gap 4 L 5 L BUN 13.8 11.7 Creatinine 0.8 0.9 Est GFR (CKD-EPI)AfAm 76.29 66.16 Est GFR (CKD-EPI)NonAf 65.82 57.09 Random Glucose 69 L 91 Calcium 9.1 9.3 Phosphorus 2.7 Magnesium 2.0 Total Bilirubin 0.3 AST 11 L ALT 11 L Alkaline Phosphatase 103 B-Natriuretic Peptide 1216.4 H Total Protein 6.1 L Albumin 3.0 L Current Medications Generic Name Dose Route Start Last Admin Trade Name Freq PRN Reason Stop Dose Admin Buspirone HCl 5 mg 07/22/19 10:00 07/23/19 09:42 Buspar - PO 5 mg DAILY MISTI Administration Ferrous Sulfate 325 mg 07/22/19 10:00 07/23/19 09:42 Feosol - PO 325 mg DAILY MISTI Administration Heparin Sodium (Porcine) 5,000 unit 07/21/19 22:00 07/23/19 09:42 Heparin - SQ 5,000 unit BID MISTI Administration Levothyroxine Sodium 50 mcg 07/22/19 07:00 07/23/19 06:21 Synthroid - PO 50 mcg ACBK MISTI Administration Pantoprazole Sodium 40 mg 07/22/19 10:00 07/23/19 09:41 Protonix - PO 40 mg DAILY MISTI Administration Quetiapine Fumarate 100 mg 07/21/19 22:00 07/23/19 09:42 Seroquel - PO 100 mg BID MISTI Administration Risperidone 0.25 mg 07/22/19 07:09 07/23/19 09:49 Risperdal - PO 0.25 mg BID MISTI Administration Sertraline HCl 100 mg 07/22/19 10:00 07/23/19 09:41 Zoloft - PO 100 mg DAILY MISTI Administration Vancomycin HCl 125 mg 07/23/19 12:00 Vancomycin Oral Solution PO Q6HPO [facility] Home Medications Medication Instructions Recorded Levothyroxine [Synthroid -] 50 mcg PO DAILY 08/18/15 Risperidone [Risperdal -] 0.5 mg PO BID 05/09/18 Sertraline HCl [Zoloft] 100 mg PO DAILY 05/23/18 Pantoprazole Sodium [Protonix -] 40 mg PO DAILY #7 tablet.ec 09/17/18 Buspirone HCl [Buspar -] 5 mg PO DAILY 04/05/19 Quetiapine Fumarate [Seroquel -] 200 mg PO BID 04/05/19 Ferrous Sulfate [Iron] 325 mg PO BID 07/21/19 ASSESSMENT AND PLAN: 88 year old female with history significant for COPD, Chronic Diastolic CHF, HTN , Hx ESBL UTIs, Hypothyroidism, Parkinson's Disease, Chronic Anemia, presents with generalized weakness and diarrhea. 1. Diarrhea Cdiff positive. Will start Vancomycin. Afebrile, Hemodynamically Stable without abdominal pain/nausea/vomiting/ hematochezia. If diarrhea improved, can be discharged home on 10 days of oral Vancomycin. 2. Generalized weakness, lethargy secondary to Dehydration due to diarrhea - improved. IV hydration stopped, taking in adequate oral fluid intake. Urine Cx negative. PT eval prior to discharge 3. Hypothyroidism - TSH 1.63. Continue Synthroid 50mcg daily. 4. Dementia - Continue Quetiapine, Risperdione, Sertraline, Buspirone. 5. Hx COURT - on FeSO4 supplementation. For PCP follow up on discharge. DVT Px - Heparin SQ
[2019-07-23] MEDS: VANCOMYCIN 250 MG/5 ML ORAL SOLUTION PO SCH ×2 (11:41→17:44)
[2019-07-23 13:39] VITALS: BP 114/65; PULSE 112; TEMP 97.7
--- NOTE | 2019-07-23 14:05 | DS ---
Physical Exam: SUBJECTIVE: Patient seen and examined at the bedside. Patient stated that overall she felt better. She denied further episodes of diarrhea. Denied chest pain, sob, n/v/c/d, abd pain, fever, chills. Was eating and drinking well and slept well overnight. Was found to be antigen and toxin positive for C. diff. Started on vancomycin PO. OBJECTIVE: Vital Signs Period Temp Pulse Resp BP Sys/Riggins Pulse Ox Last 24 Hr 97.6 F-98.6 F 91-112 18-20 114-154/64-86 93-96 PHYSICAL EXAM GENERAL: The patient is awake, alert, and fully oriented, in no acute distress. Hard of hearing. HEAD: Normal with no signs of trauma. EYES: PERRL, extraocular movements intact, sclera anicteric, conjunctiva clear. NECK: Trachea midline, full range of motion, supple. No JVD noted LUNGS: Breath sounds equal, noted crackles in the bilateral bases R>L. No wheezes auscultated. HEART: Regular rate and rhythm, S1, S2 without murmur or rub. ABDOMEN: Soft, nontender, nondistended, normoactive bowel sounds, no guarding, no rebound. EXTREMITIES: 2+ pulses, warm, well-perfused, no edema. NEUROLOGICAL: Cranial nerves II through XII grossly intact. 5/5 muscle strength in the lower extremities. Mild rigidity in the upper extremities. PSYCH: Normal mood, normal affect. Easily distracted. SKIN: Warm, dry, normal turgor, no rashes or lesions noted. LABS Laboratory Results - last 24 hr 07/23/19 07/23/19 06:00 08:40 WBC 9.1 RBC 4.63 Hgb 12.5 Hct 38.2 MCV 82.6 MCH 27.0 MCHC 32.7 RDW 17.2 H Plt Count 317 MPV 8.0 Sodium 141 Potassium 4.0 Chloride 107 Carbon Dioxide 30 Anion Gap 5 L BUN 11.7 Creatinine 0.9 Est GFR (CKD-EPI)AfAm 66.16 Est GFR (CKD-EPI)NonAf 57.09 Random Glucose 91 Calcium 9.3 HOSPITAL COURSE: Nandini Baker is an 88 year old female with a past medical history of COPD, HFpEF , HTN, ESBL UTIs, Hypothyroidism, Parkinson's, anemia who presented due to weakness. Patient had been having diarrhea for 1 week and had been having difficulty eating and ambulating. Patient was brought in due to failure to thrive. While admitted the patient's diarrhea had resolved and was eating and drinking well. C diff toxin and antigen were positive and patient was started on vancomycin orally. Family was spoken to and explained that the patient will have to complete 10 days of oral vancomycin and family voiced understanding and noted that they would take the antibiotics as prescribed. Patient was advised to have adequate oral fluid intake and to follow up with her primary care physician within one week of discharge. Patient was discharged in stable condition. Date of Admission:07/21/19 Date of Discharge: 07/23/19 Minutes to complete discharge: 35 Discharge Summary Problems reviewed: Yes Reason For Visit: PNEUMONIA Condition: Improved - Instructions Diet, Activity, Other Instructions: You were admitted to the hospital because of weakness because you had dehydration due to diarrhea. While you were admitted to the hospital you were tested for a bacteria, Clostridium difficile, which was positive in your stool. You were started on antibiotics which you must complete. You had urine cultures to test for bacteria which were negative. MEDICATIONS Please start taking Vancomycin 125mg every 6 hours for 10 days. Please continue taking all of your home medications as prescribed. REFERRALS Please see your primary care doctor within 1 week. If you do not currently have a primary care doctor or wish to start seeing a primary care doctor through the resident's clinic you may call to make an appointment. SPECIAL INSTRUCTIONS Please take all of the antibiotics as prescribed. Continue to eat and drink as normal. If you have any further symptoms of diarrhea, weakness, nausea, vomiting, fever , chills, chest pain, shortness of breath, or other general feelings of unwellness please call [phone] or visit your nearest emergency room. Referrals: [facility] [place] Group] - 1 Week Disposition: HOME - Home Medications Comprehensive Discharge Medication List: Ambulatory Orders Levothyroxine [Synthroid -] 50 mcg PO DAILY 08/18/15 Risperidone [Risperdal -] 0.5 mg PO BID 05/09/18 Sertraline HCl [Zoloft] 100 mg PO DAILY 05/23/18 Pantoprazole Sodium [Protonix -] 40 mg PO DAILY #7 tablet.ec 09/17/18 Buspirone HCl [Buspar -] 5 mg PO DAILY 04/05/19 Quetiapine Fumarate [Seroquel -] 200 mg PO BID 04/05/19 Ferrous Sulfate [Iron] 325 mg PO BID 07/21/19 Vancomycin Oral Solution 125 mg PO Q6HPO #100 ml 07/23/19 Problem List - Problems (1) Anxiety and depression Code(s): F41.9 - ANXIETY DISORDER, UNSPECIFIED; F32.9 - MAJOR DEPRESSIVE DISORDER, SINGLE EPISODE, UNSPECIFIED (2) Clostridium difficile colitis Code(s): A04.72 - ENTEROCOLITIS D/T CLOSTRIDIUM DIFFICILE, NOT SPCF RECUR (3) Hypothyroidism Code(s): E03.9 - HYPOTHYROIDISM, UNSPECIFIED (4) Parkinson disease Code(s): G20 - PARKINSON'S DISEASE This patient is new to me today: No Emergency Visit: No Critical Care patient: No - Discharge Referral Referred to [facility] No
== END 2019-07-23 18:00 | disposition home or self-care (01) | DRG 371 ==
LOC: JER 14:08 → JERBED 18:12 → J6S 23:20
DX: A04.72 Enterocolitis due to Clostridium difficile, not specified as recurrent (principal); E43 Unspecified severe protein-calorie malnutrition; F33.9 Major depressive disorder, recurrent, unspecified; Z68.1 Body mass index [BMI] 19.9 or less, adult; J98.11 Atelectasis; I50.30 Unspecified diastolic (congestive) heart failure; J44.9 Chronic obstructive pulmonary disease, unspecified; E03.9 Hypothyroidism, unspecified; K44.9 Diaphragmatic hernia without obstruction or gangrene; G20 Parkinson's disease; R62.7 Adult failure to thrive; E86.0 Dehydration; L89.152 Pressure ulcer of sacral region, stage 2; R19.7 Diarrhea, unspecified; D72.829 Elevated white blood cell count, unspecified; F03.90 Unspecified dementia, unspecified severity, without behavioral disturbance, psychotic disturbance, mood disturbance, and anxiety; D50.9 Iron deficiency anemia, unspecified; I11.0 Hypertensive heart disease with heart failure; E88.09 Other disorders of plasma-protein metabolism, not elsewhere classified
CPT/HCPCS: 36415; 71045-TC-FY; 80048; 80053; 81003; 82550; 83735; 83880; 84100; 84443; 84484; 85025; 85027; 85610; 85730; 87040; 87045; 87046; 87086; 87324; 87449; 87804; 93005; 93010; 97116-GP; 97161-GP; 99285-25; G0008; J1644; Q2036

== ENCOUNTER 2019-10-19 10:53 | Inpatient (IN) | payer OTHER, MEDICARE ==
[2019-10-19] MEDS ORDERED: ACETAMINOPHEN 1000 MG/100 ML VIAL (NON FORMULARY) IVPB ONE (11:11)
[2019-10-19] MEDS ORDERED: ACETAMINOPHEN INJECTION 100 ML IVPB ONE (11:17)
--- NOTE | 2019-10-19 11:19 | PDOC ---
Documentation entered by Kaye Ty SCRIBE, acting as scribe for Aneta Medrano MD. Aneta Medrano MD: This documentation has been prepared by the Melony parker Brenda, SCRIBE, under my direction and personally reviewed by me in its entirety. I confirm that the documentation accurately reflects all work, treatment, procedures, and medical decision making performed by me. Attending Attestation - Resident Resident Name: Hermilo Duckworth - ED Attending Attestation I have performed the following: I have examined & evaluated the patient, The case was reviewed & discussed with the resident, I agree w/resident's findings & plan, Exceptions are as noted - HPI HPI: 10/19/19 11:43 The patient is an 89 year old female with a significant PMH of COPD, HTN, HLD, and recent admission for C diff on 09/20 who presents to the ED for evaluation of about 4 days of cough with congestion and 2 days of nausea and vomtting. Patient reports trying nebulizer treatment a few days ago, to no relief. Patient has aide that comes to home Mondays, Wednesdays and , who last saw her 3 days ago and upon seeing her today noticed her to be lethargic, warm and weak. The patient denies chest pain, headache and dizziness. Denies chills diarrhea and constipation. Allergies: Amoxicillin, clavulanic acid Social history: No reported hx of tobacco use, alcohol use or illicit drug use. PCP: Yamile Montes De Oca - Physicial Exam PE: 10/19/19 11:16 awake alert resp distress with accesorry muscle use, diffuse craclkes on lung exam all feilds. tachypnea, heart reg tachycardia. abd soft nt nd ext wwp. no edema. no calf tenderness. - Medical Decision Making 10/19/19 11:17 89 yo F with h/o copd htn hld recent admission 09/20 for c diff colitis, here wih 3 - 4 days cough congestion. was using inhaled nebulizer treatment few days ago. over last 2 days pt started to have n/v and today when aid showed up at house ( comes //) last saw 3 days ago noted to be with lethargy, felt warm and weak. on arrival to ED pt was in resp distress, febrile 104, tachypneic, hypoxic, differential chf pneumonia sepsis, cdif uti, influenzae, recurrent cdiff. plan labs flu swab. pt placed on bipap for resp distress. tylenl labs septic workup. focused ED us eval lungs TTE. Heart Score/ECG Review #1 General ECG Interpretation: Sinus Rhythm, Normal Intervals, No acute ischemic changes Compared to previous ECG there are: Other (sinus tachycardia 133. no st t wave changes. lft axis.)
--- NOTE | 2019-10-19 11:34 | PDOC ---
History of Present Illness - General Chief Complaint: Shortness of Breath Stated Complaint: RESPITORY DISTRESS Time Seen by Provider: 10/19/19 11:03 History Source: Patient Exam Limitations: No Limitations - History of Present Illness Initial Comments: 10/19/19 11:32 89 yo female pmh COPD, HFpEF, HTN, ESBL UTIs, Hypothyroidism, Parkinson's and anemia presents to the ED for 3 days of progressive SOB. Sister and home health lpn at the bedside, provides HPI due to pt inability to speak in full sentences and lethargic. Pt attempted using albuterol inhaler at home without improvement in symptoms. Pt had positive C diff 07/2019, treated without new loose stools. Denies recent changes in health, F/C/N?V, CP, back pain, abdominal pain, changes in urinary habits or bowel habits Past History - Past Medical History Allergies/Adverse Reactions: Allergies Allergy/AdvReac Type Severity Reaction Status Date / Time amoxicillin [From Augmentin] Allergy Severe Hives Verified 10/19/19 11:06 clavulanic acid Allergy Severe Hives Verified 10/19/19 11:06 [From Augmentin] Home Medications: Ambulatory Orders Levothyroxine [Synthroid -] 50 mcg PO DAILY 08/18/15 Risperidone [Risperdal -] 0.5 mg PO BID 05/09/18 Sertraline HCl [Zoloft] 100 mg PO DAILY 05/23/18 Pantoprazole Sodium [Protonix -] 40 mg PO DAILY #7 tablet.ec 09/17/18 Buspirone HCl [Buspar -] 5 mg PO DAILY 04/05/19 Quetiapine Fumarate [Seroquel -] 200 mg PO BID 04/05/19 Ferrous Sulfate [Iron] 325 mg PO BID 07/21/19 Vancomycin Oral Solution 125 mg PO Q6HPO #100 ml 07/23/19 Anemia: No Asthma: No Cancer: Yes (Adenoma) Cardiac Disorders: Yes CVA: No COPD: No CHF: Yes Dementia: Yes Diabetes: No GI Disorders: Yes (hiatal hernia) Disorders: Yes (urinary incontinence) HTN: Yes Hypercholesterolemia: No Liver Disease: No Psychiatric Problems: Yes Seizures: Yes (MANIC DEPRESSION) Thyroid Disease: Yes - Surgical History Abdominal Surgery: Yes Appendectomy: No Cardiac Surgery: No Cholecystectomy: Yes Lung Surgery: No Neurologic Surgery: No Orthopedic Surgery: No - Immunization History Immunization Up to Date: Yes - Psycho Social/Smoking Cessation Hx Smoking Status: No Smoking History: Unknown if ever smoked Have you smoked in the past 12 months: No Number of Cigarettes Smoked Daily: 0 If you are a former smoker, when did you quit?: Over 40 years ago Cigars Per Day: 0 Information on smoking cessation initiated: No Hx Alcohol Use: No Drug/Substance Use Hx: No Substance Use Type: None Hx Substance Use Treatment: No Review of Systems - Review of Systems Constitutional: Yes: See HPI HEENTM: Yes: See HPI Respiratory: Yes: See HPI Cardiac (ROS): Yes: See HPI ABD/GI: Yes: See HPI : Yes: See HPI Musculoskeletal: Yes: See HPI Integumentary: Yes: See HPI Neurological: Yes: See HPI *Physical Exam - Vital Signs Last Vital Signs Temp Pulse Resp BP Pulse Ox 104.5 F H 69 44 H 123/75 97 10/19/19 10:53 10/19/19 10:53 10/19/19 10:53 10/19/19 10:53 10/19/19 10:53 - Physical Exam General Appearance: Yes: Nourished, Appropriately Dressed, Apparent Distress HEENT: positive: EOMI Neck: positive: Supple. negative: Carotid bruit Respiratory/Chest: positive: Rapid RR, Crackles, Rhonchi. negative: Stridor, Wheezing Cardiovascular: positive: Regular Rhythm, Regular Rate Vascular Pulses: Dorsalis-Pedis (R): 4+, Doralis-Pedis (L): 4+ Gastrointestinal/Abdominal: positive: Flat, Soft. negative: Pulsatile Mass, Protuberent, Distended, Guarding, Rebound, Tenderness Musculoskeletal: negative: CVA Tenderness Extremity: positive: Normal Capillary Refill, Normal Inspection Integumentary: positive: Normal Color, Dry, Warm Neurologic: positive: Fully Oriented, Alert, Motor Strength 5/5 ED Treatment Course - LABORATORY CBC & Chemistry Diagram: 10/19/19 11:30 10/19/19 11:30 - RADIOLOGY Radiology Studies Ordered: Category Date Time Status CHEST X-RAY PORTABLE* [RAD] Stat Radiology 10/19/19 11:06 Ordered Medical Decision Making - Medical Decision Making 10/19/19 13:46 89 yo female pmh COPD, HFpEF, HTN, ESBL UTIs, Hypothyroidism, Parkinson's and anemia presents to the ED for 3 days of progressive SOB. Sister and home health lpn at the bedside, provides HPI due to pt inability to speak in full sentences and lethargic. Pt attempted using albuterol inhaler at home without improvement in symptoms. Pt had positive C diff 07/2019, treated without new loose stools. Denies recent changes in health, F/C/N/V, CP, back pain, abdominal pain, changes in urinary habits or bowel habits Elevated RR and Temp on vitals, sepsis order set ordered along with Tylenol Pt unable to speak in full sentences and appears lethargic and weak. Resp called for Bipap, 08/07 with rate of 14 on 40%. Pt responded well to bipap and is AOX3 Discussed goals of care with pt Sister who is her HCP, states an advanced directive is signed at home, agrees to no chest compressions but unsure about intubation. No one available at home at this time to retrieve or fax advanced directives. Only 500 ml fluids given due to concerns for possible overload. Pt likely has chronic ILD no signs of volume overload on POCUS, no pitting edema Broad spec antibiotics given WBC count 34 Trop neg BNP elevated UTI positive Flu neg discussed case with ICU team and agree to admission Pt admitted to ICU under Dr. Smith Discharge - Discharge Information Problems reviewed: Yes Clinical Impression/Diagnosis: Pulmonary fibrosis, PNA (pneumonia), UTI (urinary tract infection) Condition: Stable - Admission Yes - Follow up/Referral - Patient Discharge Instructions - Post Discharge Activity
[2019-10-19 11:59] LABS: VENOUS PC02 42.9 mmHg (38-52); VENOUS PH 7.37 (7.31-7.41); VENOUS PO2 < 49 mmHg (28-48)
[2019-10-19 12:08] LABS: BASO % 0.2 % (0-2.0); EOS % 0.2 % (0-4.5); HEMATOCRIT 34.5 % (32.4-45.2); HEMOGLOBIN 11.3 GM/dL (10.7-15.3); LYMPH % 5.7 % (8-40); MCH 27.6 pg (25.7-33.7); MCHC 32.7 g/dl (32.0-36.0); MEAN CELL VOLUME 84.3 fl (80-96); MONO % 4.2 % (3.8-10.2); NEUT % 89.7 % (42.8-82.8); PLATELET COUNT 470 K/MM3 (134-434); RBC 4.09 M/mm3 (3.60-5.2); RDW 16.1 % (11.6-15.6)
[2019-10-19 12:10] LABS: WHITE BLOOD COUNT 34.9 K/mm3 (4.0-10.0)
[2019-10-19 12:13] LABS: INR 1.37 (0.83-1.09); PROTHROMBIN TIME (PATIENT) 16.2 SEC (9.7-13.0)
[2019-10-19] MEDS ORDERED: VANCOMYCIN 1 GM in D5W (PRE-DOCKED) 1,000 MG/250 ML IVPB ONE (12:13)
[2019-10-19 12:15] LABS: ACTIVATED PTT 35.3 SECONDS (25.2-36.5)
[2019-10-19] MEDS ORDERED: MEROPENEM 1 GM in DEXTROSE 5%-WATER 100 ML IVPB ONE ×2 (12:17→17:56)
[2019-10-19 12:20] LABS: EPI CELLS 2.1 /HPF (0-5/HPF); HYALINE CASTS 20 /lpf (0-8); PH,URINE 8.5 (5.0-8.0); URINE APPEARANCE TURBID; URINE BACTERIA 1173.9 /hpf (NEGATIVE); URINE BILIRUBIN NEGATIVE (NEGATIVE); URINE COLOR YELLOW; URINE GLUCOSE (UA) NEGATIVE (NEGATIVE); URINE KETONE NEGATIVE (NEGATIVE); URINE LEUK ESTERASE 3+ (NEGATIVE); URINE NITRITE NEGATIVE (NEGATIVE); URINE PROTEIN 2+ (NEGATIVE); URINE RBC 2 /hpf (0-4); URINE UROBILINOGEN 0.2 mg/dL (0.2-1.0); URINE WBC 462 /hpf (0-5)
[2019-10-19 12:21] LABS: ALBUMIN 2.5 g/dl (3.4-5.0); ALK PHOS 187 U/L (45-117); ANION GAP 8 MMOL/L (8-16); BILIRUBIN,TOTAL 0.7 mg/dL (0.2-1); BLOOD UREA NITROGEN 31.9 mg/dL (7-18); CALCIUM 9.7 mg/dL (8.5-10.1); CHLORIDE 105 mmol/L (98-107); CO2 24 mmol/L (21-32); CREATININE 1.3 mg/dL (0.55-1.3); GLUCOSE,RANDOM 142 mg/dL (74-106); MAGNESIUM 2.3 mg/dL (1.8-2.4); N-TERMINAL BNP 1113.8 pg/ml (5-450); POTASSIUM 5.3 mmol/L (3.5-5.1); SGOT/AST 118 U/L (15-37); SGPT/ALT 68 U/L (13-61); SODIUM 137 mmol/L (136-145); TOT PROT 7.1 g/dl (6.4-8.2)
[2019-10-19] MEDS ORDERED: VANCOMYCIN 1 GRAM (PRE-DOCKED) 1,000 MG/250 ML BAG IVPB ONE (12:27)
[2019-10-19] MEDS ORDERED: MEROPENEM 1 GM VIAL (RESTRICTED TO ID) IVPB ONE (12:27)
--- NOTE | 2019-10-19 12:43 | EKG ---
Test Reason : Blood Pressure : / mmHG Vent. Rate : 133 BPM Atrial Rate : 133 BPM P-R Int : 134 ms QRS Dur : 070 ms QT Int : 270 ms P-R-T Axes : 023 -28 008 degrees QTc Int : 401 ms POOR DATA QUALITY, INTERPRETATION MAY BE ADVERSELY AFFECTED SINUS TACHYCARDIA WITH PREMATURE ATRIAL COMPLEXES VOLTAGE CRITERIA FOR LEFT VENTRICULAR HYPERTROPHY Nonspecific T changes ABNORMAL ECG WHEN COMPARED WITH ECG OF 22-JUL-2019 09:49, PREMATURE ATRIAL COMPLEXES ARE NOW PRESENT T WAVE INVERSION LESS EVIDENT IN ANTERIOR LEADS Confirmed by Ayush Shankar ([id number]) on 10/19/2019 12:43:30 PM Referred By: Confirmed By:Ayush Shankar
[2019-10-19] MEDS ORDERED: SODIUM CHLORIDE 500 ML IV STA (12:44)
[2019-10-19] MEDS ORDERED: ALBUTEROL SO4 2.5/IPRATROPIUM 0.5 INH SOL 3 ML VIAL.NEB. NEB ONE (13:24)
[2019-10-19] MEDS ORDERED: IBUPROFEN 800 MG/8 ML IJ IVPB ONE ×2 (13:25→15:00)
--- NOTE | 2019-10-19 13:43 | CONSULT ---
Consultation: REQUESTING PROVIDER: CONSULT REQUEST: We have been asked to medically evaluate this patient for Respiratory Distress, on BiPaP. HISTORY OF PRESENT ILLNESS: 89F w/ pmh of hearing deficit, COPD, ESBL UTIs, COPD, HFpEF(LVEF 60-65%, 09/15/18), hypothyroidism, Parkinson's BIBA for complaint of worsening lethargy, SOB, cough with white sputum x3d. Little improvement with home nebulizer tx. Denies fever. 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 Sister at bedside, states that concerning healthcare, her sister would not want extraordinary measures. Currently, does not have paperwork to confirm. The paperwork is at home. REVIEW OF SYSTEMS: CONSTITUTIONAL: increased lethargy Absent: fever, chills, diaphoresis, generalized weakness, malaise, loss of appetite, weight change HEENT: baseline hearing deficit Absent: rhinorrhea, nasal congestion, throat pain, throat swelling, difficulty swallowing, mouth swelling, ear pain, eye pain, visual changes CARDIOVASCULAR: Absent: chest pain, syncope, palpitations, irregular heart rate, lightheadedness, peripheral edema RESPIRATORY: SOB, cough w/ white sputum Absent: cough, dyspnea with exertion, orthopnea, wheezing, stridor, hemoptysis GASTROINTESTINAL: Absent: abdominal pain, abdominal distension, nausea, vomiting, diarrhea, constipation, melena, hematochezia GENITOURINARY: Absent: dysuria, frequency, urgency, hesitancy, hematuria, flank pain, genital pain MUSCULOSKELETAL: Absent: myalgia, arthralgia, joint swelling, back pain, neck pain SKIN: Absent: rash, itching, pallor ENDOCRINE: Absent: unexplained weight gain, unexplained weight loss, heat intolerance, cold intolerance NEUROLOGIC: Absent: headache, focal weakness or paresthesias, dizziness, unsteady gait, seizure, mental status changes, bladder or bowel incontinence PSYCHIATRIC: Absent: anxiety, depression, suicidal or homicidal ideation, hallucinations. PHYSICAL EXAMINATION Vital Signs - 24 hr 10/19/19 10/19/19 10/19/19 10:53 11:10 11:25 Temperature 104.5 F H 104.5 F H Pulse Rate 69 Respiratory 44 H Rate Blood Pressure 123/75 Blood Pressure [Right Arm] O2 Sat by Pulse 97 95 Oximetry (%) 10/19/19 13:24 Temperature 102.1 F H Pulse Rate Respiratory 44 H Rate Blood Pressure Blood Pressure 106/57 L [Right Arm] O2 Sat by Pulse 98 Oximetry (%) GENERAL: Mildly lethargic. Thin and cachexic. HEAD: NC, moderate temporal wasting EYES: extraocular movements intact, sclera anicteric, conjunctiva clear and w/o jaundice EARS, NOSE, THROAT: Ears normal, nares patent, oropharynx clear without exudates. Moist mucous membranes. NECK: Normal range of motion, supple without lymphadenopathy, JVD, or masses. LUNGS: Mildly coarse BS auscultated bilaterally. BiPAP, breathing ~40 b reaths/min HEART: tachycardia, regular rate; S1 and S2 without murmur, rub or gallop. ABDOMEN: Soft, nontender, not distended, normoactive bowel sounds, no guarding, no rebound. MUSCULOSKELETAL: Normal range of motion at all joints. No bony deformities or tenderness. Very thin extremities UPPER EXTREMITIES: 2+ pulses, warm, well-perfused. No cyanosis. No clubbing. Cap refill <2 seconds. No peripheral edema. LOWER EXTREMITIES: 2+ pulses, warm, well-perfused. No calf tenderness. No peripheral edema. NEUROLOGICAL: Oriented to name only. Following commands PSYCHIATRIC: Cooperative. SKIN: Warm, dry, normal turgor, no rashes or lesions noted. Laboratory Results - last 24 hr 10/19/19 10/19/19 10/19/19 11:30 11:30 11:30 WBC 34.9 H* RBC 4.09 Hgb 11.3 Hct 34.5 MCV 84.3 MCH 27.6 MCHC 32.7 RDW 16.1 H Plt Count 470 H D MPV 9.0 D Absolute Neuts (auto) 31.3 H Neutrophils % 89.7 H D Lymphocytes % 5.7 L D Monocytes % 4.2 Eosinophils % 0.2 D Basophils % 0.2 Nucleated RBC % 0 PT with INR 16.20 H INR 1.37 H PTT (Actin FS) 35.3 VBG pH POC VBG pCO2 POC VBG pO2 VBG HCO3 VBG O2 Sat (Nikky) VBG Base Excess Sodium Potassium Chloride Carbon Dioxide Anion Gap BUN Creatinine Est GFR (CKD-EPI)AfAm Est GFR (CKD-EPI)NonAf Random Glucose Lactic Acid 1.6 Calcium Magnesium Total Bilirubin AST ALT Alkaline Phosphatase Creatine Kinase Troponin I B-Natriuretic Peptide Total Protein Albumin Urine Color Urine Appearance Urine pH Ur Specific [place] Urine Protein Urine Glucose (UA) Urine Ketones Urine Blood Urine Nitrite Urine Bilirubin Urine Urobilinogen Ur Leukocyte Esterase Urine WBC (Auto) Urine RBC (Auto) Urine Casts (Auto) U Epithel Cells (Auto) Urine Bacteria (Auto) Influenza A (Rapid) Influenza B (Rapid) 10/19/19 10/19/19 10/19/19 11:30 11:30 11:58 WBC RBC Hgb Hct MCV MCH MCHC RDW Plt Count MPV Absolute Neuts (auto) Neutrophils % Lymphocytes % Monocytes % Eosinophils % Basophils % Nucleated RBC % PT with INR INR PTT (Actin FS) VBG pH 7.37 POC VBG pCO2 42.9 POC VBG pO2 < 49 H VBG HCO3 24.2 VBG O2 Sat (Nikky) 68.8 L VBG Base Excess 0.6 Sodium 137 Potassium 5.3 H Chloride 105 Carbon Dioxide 24 Anion Gap 8 BUN 31.9 H Creatinine 1.3 Est GFR (CKD-EPI)AfAm 42.12 Est GFR (CKD-EPI)NonAf 36.34 Random Glucose 142 H Lactic Acid Calcium 9.7 Magnesium 2.3 Total Bilirubin 0.7 AST 118 H ALT 68 H Alkaline Phosphatase 187 H Creatine Kinase 105 Troponin I < 0.02 B-Natriuretic Peptide 1113.8 H Total Protein 7.1 Albumin 2.5 L Urine Color Yellow Urine Appearance Turbid Urine pH 8.5 H D Ur Specific [place] 1.016 Urine Protein 2+ H Urine Glucose (UA) Negative Urine Ketones Negative Urine Blood 1+ H Urine Nitrite Negative Urine Bilirubin Negative Urine Urobilinogen 0.2 Ur Leukocyte Esterase 3+ H Urine WBC (Auto) 462 Urine RBC (Auto) 2 Urine Casts (Auto) 20 U Epithel Cells (Auto) 2.1 Urine Bacteria (Auto) 1173.9 Influenza A (Rapid) Influenza B (Rapid) 10/19/19 12:20 WBC RBC Hgb Hct MCV MCH MCHC RDW Plt Count MPV Absolute Neuts (auto) Neutrophils % Lymphocytes % Monocytes % Eosinophils % Basophils % Nucleated RBC % PT with INR INR PTT (Actin FS) VBG pH POC VBG pCO2 POC VBG pO2 VBG HCO3 VBG O2 Sat (Nikky) VBG Base Excess Sodium Potassium Chloride Carbon Dioxide Anion Gap BUN Creatinine Est GFR (CKD-EPI)AfAm Est GFR (CKD-EPI)NonAf Random Glucose Lactic Acid Calcium Magnesium Total Bilirubin AST ALT Alkaline Phosphatase Creatine Kinase Troponin I B-Natriuretic Peptide Total Protein Albumin Urine Color Urine Appearance Urine pH Ur Specific [place] Urine Protein Urine Glucose (UA) Urine Ketones Urine Blood Urine Nitrite Urine Bilirubin Urine Urobilinogen Ur Leukocyte Esterase Urine WBC (Auto) Urine RBC (Auto) Urine Casts (Auto) U Epithel Cells (Auto) Urine Bacteria (Auto) Influenza A (Rapid) Negative Influenza B (Rapid) Negative Active Medications Generic Name Dose Route Start Last Admin Trade Name Freq PRN Reason Stop Dose Admin Sodium Chloride 500 mls @ 500 mls/hr 10/19/19 12:44 10/19/19 12:53 Normal Saline - IV 10/19/19 13:43 500 mls/hr ASDIR STA Administration ASSESSMENT/PLAN: 89F w/ pmh of hearing deficit, COPD, ESBL UTIs, COPD, HFpEF(LVEF 60-65%, 09/15/18), hypothyroidism, Parkinson's BIBA for complaint of worsening lethargy, SOB, cough with white sputum x3d. Admitted for sepsis 2/2 PNA vs COPDe and UTI. Admitted to ICU for close monitoring and possibly need for advanced cardiopulmonary support. Pt's sister stating that pt would want to avoid extraordinary measure but not completely sure about intubation. NEURO # AMS 2/2 severe sepsis(?UTI vs ?PNA) # Parkinson's - IV abx for sepsis - at risk of ICU-acquired delirium - needs medical reconciliation RESPIR # ?PNA # ?COPD excerbation > CXR(10/19/19): coarse lung changes, superimposed congestive and possibly patchy infiltrates at the bases, tracheal deviation to the Right > WBC 34.9 - duonebs q4h(margo), ventolin q4h(PRN) - solumedrol 40mg q8h - IV abx - cw BiPAP - will consider intubation if pt cannot clarify Advanced Directives CADIO # HFpEF --likey not in excerbation > BNP 1113.8 > Echo(09/15/18): LVEF 60-65% > EKG(10/19/19): sinus tachy, QTc 401 - monitor I/Os, daily weight GI - NPO while on BiPAP - may need PPI if prolonged steroids RENAL # WILBERT # ?UTI > UA(10/19/19): 2+ protein, 1+ blood, 3+ LE, 462 WBC > Cr(baseline ~ 0.7): 1.3 - gentle IVF - IV abx ID # sepsis 2/2 ?UTI vs ?PNA - fu UCX, BCX - abx regimen: meropenem + vanco - ID(Diego) consult: --pending recs HEME # h/o anemia - monitor CBC FEN - NPO - D5 NS @75 PPX - SQH CODE STATUS: - "no extraordinary measures", will need official documentation Dispo: We will continue to follow the patient. Thank you for this consultative opportunity. Visit type - Emergency Visit Emergency Visit: Yes ED Registration Date: 10/19/19 Care time: The patient presented to the Emergency Department on the above date and was hospitalized for further evaluation of their emergent condition. - New Patient This patient is new to me today: Yes Date on this admission: 10/20/19 - Critical Care Critical Care patient: Yes Total Critical Care Time (in minutes): 35 Critical Care Statement: The care of this patient involved high complexity decision making to prevent further life threatening deterioration of the patient's condition and/or to evaluate & treat vital organ system(s) failure or risk of failure. ATTENDING PHYSICIAN STATEMENT I saw and evaluated the patient. I reviewed the resident's note and discussed the case with the resident. I agree with the resident's findings and plan as documented. SUBJECTIVE: OBJECTIVE: ASSESSMENT AND PLAN:
[2019-10-19 13:57] LABS: PLATELET ESTIMATE INCREASED
--- NOTE | 2019-10-19 14:10 | HP ---
Admitting History and Physical - Primary Care Physician PCP: Luna Smith - Admission History of Present Illness: 89 year old female with a significant PMH of COPD, HTN, HLD, and recent admission for C diff on 09/20 who presents to the ED for evaluation of about 4 days of cough with congestion and 2 days of nausea and vomtting. Patient reports trying nebulizer treatment a few days ago, to no relief. Patient has aide that comes to home Mondays, Wednesdays and , who last saw her 3 days ago and upon seeing her today noticed her to be lethargic, warm and weak. The patient denies chest pain, headache and dizziness. Denies chills diarrhea and constipation. 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 Colon adenoma removed 2011.) Hepatobiliary: Yes: Cholelithiasis (s/p cholecystectomy) Renal/: Yes: UTI Infectious Disease: Yes: C-Diff Psych: Yes: Depression Endocrine: Yes: Hypothyroidism - Past Surgical History Past Surgical History: Yes: Cholecystectomy, Colonoscopy (07/18/12 = adenoma removed, diverticulosis seen), Upper Endoscopy (1) - Smoking History Smoking history: Unknown if ever smoked Have you smoked in the past 12 months: No Aproximately how many cigarettes per day: 0 If you are a former smoker, when did you quit?: Over 40 years ago - Alcohol/Substance Use Hx Alcohol Use: No History of Substance Use: reports: None - Social History ADL: Family Assistance 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 History of Recent Travel: No Home Medications - Allergies Allergies/Adverse Reactions: Allergies Allergy/AdvReac Type Severity Reaction Status Date / Time amoxicillin [From Augmentin] Allergy Severe Hives Verified 10/19/19 11:06 clavulanic acid Allergy Severe Hives Verified 10/19/19 11:06 [From Augmentin] - Home Medications Home Medications: Ambulatory Orders Levothyroxine [Synthroid -] 50 mcg PO DAILY 08/18/15 Risperidone [Risperdal -] 0.5 mg PO BID 05/09/18 Sertraline HCl [Zoloft] 100 mg PO DAILY 05/23/18 Pantoprazole Sodium [Protonix -] 40 mg PO DAILY #7 tablet.ec 09/17/18 Buspirone HCl [Buspar -] 5 mg PO DAILY 04/05/19 Quetiapine Fumarate [Seroquel -] 200 mg PO BID 04/05/19 Ferrous Sulfate [Iron] 325 mg PO BID 07/21/19 Vancomycin Oral Solution 125 mg PO Q6HPO #100 ml 07/23/19 Physical Examination Vital Signs: Vital Signs Temperature 102.1 F H 10/19/19 13:24 Pulse Rate 69 10/19/19 10:53 Respiratory Rate 44 H 10/19/19 13:24 Blood Pressure 106/57 L 10/19/19 13:24 O2 Sat by Pulse Oximetry (%) 98 10/19/19 14:05 Constitutional: Yes: Anxious HENT: Yes: Atraumatic Neck: Yes: Supple Cardiovascular: Yes: Regular Rate and Rhythm Respiratory: Yes: Rhonchi, Wheezes Gastrointestinal: Yes: Normal Bowel Sounds Extremities: Yes: WNL Edema: No Neurological: Yes: Alert Labs: CBC, BMP 10/19/19 11:30 10/19/19 11:30 Problem List - Problems (1) PNA (pneumonia) Assessment/Plan: iv abx bipap duo nebs cxs sent Code(s): J18.9 - PNEUMONIA, UNSPECIFIED ORGANISM (2) Pulmonary fibrosis Assessment/Plan: on bipap for now Code(s): J84.10 - PULMONARY FIBROSIS, UNSPECIFIED (3) UTI (urinary tract infection) Assessment/Plan: on iv abx Code(s): N39.0 - URINARY TRACT INFECTION, SITE NOT SPECIFIED (4) Anxiety and depression Code(s): F41.9 - ANXIETY DISORDER, UNSPECIFIED; F32.9 - MAJOR DEPRESSIVE DISORDER, SINGLE EPISODE, UNSPECIFIED (5) Hypothyroidism Assessment/Plan: on meds Code(s): E03.9 - HYPOTHYROIDISM, UNSPECIFIED (6) Parkinson disease Code(s): G20 - PARKINSON'S DISEASE (7) Seizure disorder Code(s): G40.909 - EPILEPSY, UNSP, NOT INTRACTABLE, WITHOUT STATUS EPILEPTICUS Assessment/Plan Laboratory Tests 10/19/19 10/19/19 10/19/19 11:30 11:30 11:30 WBC 34.9 H* RBC 4.09 Hgb 11.3 Hct 34.5 MCV 84.3 MCH 27.6 MCHC 32.7 RDW 16.1 H Plt Count 470 H D MPV 9.0 D Absolute Neuts (auto) 31.3 H Total Counted 100 Neutrophils % 89.7 H D Neutrophils % (Manual) 65.0 Band Neutrophils % 16.0 Lymphocytes % 5.7 L D Lymphocytes % (Manual) 8.0 D Monocytes % 4.2 Monocytes % (Manual) 11 H D Eosinophils % 0.2 D Basophils % 0.2 Nucleated RBC % 0 Platelet Estimate Increased PT with INR 16.20 H INR 1.37 H PTT (Actin FS) 35.3 VBG pH POC VBG pCO2 POC VBG pO2 VBG HCO3 VBG O2 Sat (Nikky) VBG Base Excess Sodium Potassium Chloride Carbon Dioxide Anion Gap BUN Creatinine Est GFR (CKD-EPI)AfAm Est GFR (CKD-EPI)NonAf Random Glucose Lactic Acid 1.6 Calcium Magnesium Total Bilirubin AST ALT Alkaline Phosphatase Creatine Kinase Troponin I B-Natriuretic Peptide Total Protein Albumin Urine Color Urine Appearance Urine pH Ur Specific [place] Urine Protein Urine Glucose (UA) Urine Ketones Urine Blood Urine Nitrite Urine Bilirubin Urine Urobilinogen Ur Leukocyte Esterase Urine WBC (Auto) Urine RBC (Auto) Urine Casts (Auto) U Epithel Cells (Auto) Urine Bacteria (Auto) Influenza A (Rapid) Influenza B (Rapid) 10/19/19 10/19/19 10/19/19 11:30 11:30 11:58 WBC RBC Hgb Hct MCV MCH MCHC RDW Plt Count MPV Absolute Neuts (auto) Total Counted Neutrophils % Neutrophils % (Manual) Band Neutrophils % Lymphocytes % Lymphocytes % (Manual) Monocytes % Monocytes % (Manual) Eosinophils % Basophils % Nucleated RBC % Platelet Estimate PT with INR INR PTT (Actin FS) VBG pH 7.37 POC VBG pCO2 42.9 POC VBG pO2 < 49 H VBG HCO3 24.2 VBG O2 Sat (Nikky) 68.8 L VBG Base Excess 0.6 Sodium 137 Potassium 5.3 H Chloride 105 Carbon Dioxide 24 Anion Gap 8 BUN 31.9 H Creatinine 1.3 Est GFR (CKD-EPI)AfAm 42.12 Est GFR (CKD-EPI)NonAf 36.34 Random Glucose 142 H Lactic Acid Calcium 9.7 Magnesium 2.3 Total Bilirubin 0.7 AST 118 H ALT 68 H Alkaline Phosphatase 187 H Creatine Kinase 105 Troponin I < 0.02 B-Natriuretic Peptide 1113.8 H Total Protein 7.1 Albumin 2.5 L Urine Color Yellow Urine Appearance Turbid Urine pH 8.5 H D Ur Specific [place] 1.016 Urine Protein 2+ H Urine Glucose (UA) Negative Urine Ketones Negative Urine Blood 1+ H Urine Nitrite Negative Urine Bilirubin Negative Urine Urobilinogen 0.2 Ur Leukocyte Esterase 3+ H Urine WBC (Auto) 462 Urine RBC (Auto) 2 Urine Casts (Auto) 20 U Epithel Cells (Auto) 2.1 Urine Bacteria (Auto) 1173.9 Influenza A (Rapid) Influenza B (Rapid) 10/19/19 12:20 WBC RBC Hgb Hct MCV MCH MCHC RDW Plt Count MPV Absolute Neuts (auto) Total Counted Neutrophils % Neutrophils % (Manual) Band Neutrophils % Lymphocytes % Lymphocytes % (Manual) Monocytes % Monocytes % (Manual) Eosinophils % Basophils % Nucleated RBC % Platelet Estimate PT with INR INR PTT (Actin FS) VBG pH POC VBG pCO2 POC VBG pO2 VBG HCO3 VBG O2 Sat (Nikky) VBG Base Excess Sodium Potassium Chloride Carbon Dioxide Anion Gap BUN Creatinine Est GFR (CKD-EPI)AfAm Est GFR (CKD-EPI)NonAf Random Glucose Lactic Acid Calcium Magnesium Total Bilirubin AST ALT Alkaline Phosphatase Creatine Kinase Troponin I B-Natriuretic Peptide Total Protein Albumin Urine Color Urine Appearance Urine pH Ur Specific [place] Urine Protein Urine Glucose (UA) Urine Ketones Urine Blood Urine Nitrite Urine Bilirubin Urine Urobilinogen Ur Leukocyte Esterase Urine WBC (Auto) Urine RBC (Auto) Urine Casts (Auto) U Epithel Cells (Auto) Urine Bacteria (Auto) Influenza A (Rapid) Negative Influenza B (Rapid) Negative Active Medications Generic Name Dose Route Start Last Admin Trade Name Freq PRN Reason Stop Dose Admin Acetaminophen 650 mg 10/19/19 14:14 Tylenol - PO Q6H PRN FEVER Albuterol Sulfate 1 amp 10/19/19 16:00 Ventolin 0.083% Nebulizer Soln - NEB RQ4H MISTI Albuterol/Ipratropium 1 amp 10/19/19 14:14 Duoneb - NEB Q4H PRN SHORTNESS OF BREATH Chlorhexidine Gluconate 1 applic 10/19/19 22:00 Hibiclens For Decolonization - TP HS MISTI Heparin Sodium (Porcine) 5,000 unit 10/19/19 22:00 Heparin - SQ BID MISTI Dextrose/Sodium Chloride 1,000 mls @ 75 mls/hr 10/19/19 14:15 10/19/19 15:32 D5-Ns - IV 75 mls/hr ASDIR MISTI Administration Vasopressin 50 units/ Sodium 100 mls @ 4 mls/hr 10/19/19 17:00 Chloride IVPB ASDIR MISTI Protocol 2 UNITS/HR Insulin Aspart 1 vial 10/19/19 16:30 Novolog Vial Sliding Scale - SQ ACHS [facility] Protocol Levothyroxine Sodium 50 mcg 10/20/19 07:00 Synthroid - PO 0700 MISTI Methylprednisolone Sodium Succinate 40 mg 10/19/19 14:15 10/19/19 15:32 Solu-Medrol - IVPUSH 40 mg Q8H-IV MISTI Administration Mupirocin 1 applic 10/19/19 22:00 Bactroban Ointment (For Decolonization) - NS 10/24/19 21:59 BID MISTI Pantoprazole Sodium 40 mg 10/20/19 10:00 Protonix - PO DAILY [facility] Quetiapine Fumarate 200 mg 10/19/19 22:00 Seroquel - PO BID MISTI Risperidone 0.5 mg 10/19/19 22:00 Risperdal - PO BID MISTI Sertraline HCl 100 mg 10/20/19 10:00 Zoloft - PO DAILY [facility] icu time..60 min
[2019-10-19] MEDS ORDERED: ALBUTEROL SO4 2.5/IPRATROPIUM 0.5 INH SOL 3 ML VIAL.NEB. NEB PRN (14:14)
[2019-10-19] MEDS ORDERED: DEXTROSE 5%-NORMAL SALINE 1,000 ML IV SCH (14:15)
--- NOTE | 2019-10-19 14:21 | PN ---
Teaching Attending Note Name of Resident: Eduadro Boyer ATTENDING PHYSICIAN STATEMENT I saw and evaluated the patient. I reviewed the resident's note and discussed the case with the resident. I agree with the resident's findings and plan as documented. SUBJECTIVE: Pt seen and examined in the ER. Tachypneic but arousable on BiPAP. Sister at bedside, states no "extraordinary measures" but unable to delineate care or produce paperwork. OBJECTIVE: Vital Signs Period Temp Pulse Resp BP Sys/Riggins Pulse Ox Last 24 Hr 102.1 F-104.5 F 69 44-44 106-123/57-75 95-98 Intake & Output 10/16/19 10/17/19 10/18/19 10/19/19 23:59 23:59 23:59 23:59 Weight 36.287 kg Gen: tachypneic on BiPAP Heart: RRR Lung: distant breath sounds Abd: soft, nontender Ext: no edema CBC, BMP 10/19/19 11:30 10/19/19 11:30 Active Medications Acetaminophen (Tylenol -) 650 mg PO Q6H PRN PRN Reason: FEVER Albuterol/Ipratropium (Duoneb -) 1 amp NEB Q4H PRN PRN Reason: SHORTNESS OF BREATH Chlorhexidine Gluconate (Hibiclens For Decolonization -) 1 applic TP HS MISTI Heparin Sodium (Porcine) (Heparin -) 5,000 unit SQ BID MISTI Dextrose/Sodium Chloride (D5-Ns -) 1,000 mls @ 75 mls/hr IV ASDIR MISTI Levothyroxine Sodium (Synthroid -) 50 mcg PO 0700 MISTI Methylprednisolone Sodium Succinate (Solu-Medrol -) 40 mg IVPUSH Q8H-IV MISTI Mupirocin (Bactroban Ointment (For Decolonization) -) 1 applic NS BID MISTI Stop: 10/24/19 21:59 Pantoprazole Sodium (Protonix -) 40 mg PO DAILY MISTI Quetiapine Fumarate (Seroquel -) 200 mg PO BID MISTI Risperidone (Risperdal -) 0.5 mg PO BID MISTI Sertraline HCl (Zoloft -) 100 mg PO DAILY [facility] ASSESSMENT AND PLAN: Acute Hypoxic Respiratory Failure Pneumonia UTI Acute COPD Exacerbation LV Diastolic Dysfunction Hypothyroidism Parkinsons - IV antibiotics to cover ESBL UTI, pneumonia - f/u cultures - empiric medrol - inhaled bronchodilators - O2 to keep Spo2 >90% - BiPAP to assist in work of breathing - aspiration precautions - DVT prophylaxis - monitor in ICU until goals of care addressed
[2019-10-19] MEDS: methylPREDNISolone NA SUCC 40 MG/1 ML VIAL IVPUSH SCH ×2 (15:32→22:42)
[2019-10-19] MEDS ORDERED: methylPREDNISolone NA SUCC 40 MG/1 ML VIAL ONE (15:43)
[2019-10-19] MEDS ORDERED: ATROPINE SO4 0.4 MG/1 ML VIAL IVPUSH ONE (17:00)
[2019-10-19] MEDS: VASOPRESSIN 50 UNITS in SODIUM CHLORIDE 97.5 ML IVPB SCH (17:09)
--- NOTE | 2019-10-19 18:09 | PROC ---
Central Line Insertion Indication: Sepsis Risks and Benefits Explained: Yes Consent on Chart: Yes Central Line: Triple Lumen Catheter Anesthesia: 1% Lidocaine Sterile Technique: Yes Ultrasound Guided Assistance: Yes Position: Right Internal Jugular Post Insertion: Yes: Chest X-Ray Ordered Sterile Dressing Applied: Yes
[2019-10-19] MEDS: INSULIN SLIDING SCALE (NOVOLOG) 1 VIAL SQ SCH ×2 (18:45→23:01)
[2019-10-19 21:06] LABS: ARTERIAL BLD GAS O2 SATURATION 99.4 % (95-98); ARTERIAL BLOOD GAS BASE EXCESS -1.7 meq/l (-2-2); ARTERIAL BLOOD GAS PO2 246 mmHg (80-100); ARTERIAL BLOOD GAS pH 7.41 (7.35-7.45)
[2019-10-19 21:09] LABS: ALLENS TEST POSITIVE
[2019-10-19] MEDS: ALBUTEROL SO4 0.083% IH SOL 2.5 MG/3 ML VIAL.NEB. NEB SCH (21:45)
[2019-10-19] MEDS ORDERED: QUEtiapine FUMARATE 25 MG TABLET ONE (22:37)
[2019-10-19] MEDS: NOREPINEPHRINE BITARTRATE 8,000 MCG in DEXTROSE 5%-WATER - 492 ML IV SCH (22:50)
[2019-10-19] MEDS: risperiDONE 0.5 MG TABLET PO SCH (22:51)
[2019-10-19] MEDS: QUEtiapine FUMARATE 50 MG TABLET PO SCH (22:51)
[2019-10-19] MEDS: HEPARIN NA (PORCINE) 5,000 UNITS/ML 1ML VIAL SQ SCH (22:51)
[2019-10-19] MEDS: CHLORHEXIDINE GLUCONATE 4% CLEANSER FOR DECOLONIZATION TP SCH (22:51)
[2019-10-19] MEDS: MUPIROCIN 2% TOPICAL OINTMENT FOR DECOLONIZATION NS SCH (23:45)
[2019-10-20] MEDS: ALBUTEROL SO4 0.083% IH SOL 2.5 MG/3 ML VIAL.NEB. NEB SCH ×3 (00:15→08:31)
[2019-10-20] MEDS ORDERED: MEROPENEM 1 GM VIAL (RESTRICTED TO ID) IVPB ONE ×3 (00:59→17:30)
[2019-10-20] MEDS ORDERED: DEXTROSE 5%-WATER 100 ML IVPB ONE ×3 (01:00→17:30)
[2019-10-20] MEDS: MEROPENEM 1 GM in DEXTROSE 5%-WATER 100 ML IVPB SCH ×3 (01:10→17:33)
[2019-10-20] MEDS: methylPREDNISolone NA SUCC 40 MG/1 ML VIAL IVPUSH SCH ×3 (01:10→17:33)
[2019-10-20] MEDS ORDERED: MEROPENEM 1 GM in DEXTROSE 5%-WATER 100 ML IVPB SCH (02:00)
[2019-10-20] MEDS ORDERED: MEROPENEM 1 GM in DEXTROSE 5%-WATER 100 ML IVPB ONE (02:00)
[2019-10-20 06:13] LABS: BASO % 0.2 % (0-2.0); HEMATOCRIT 29.6 % (32.4-45.2); HEMOGLOBIN 9.6 GM/dL (10.7-15.3); LYMPH % 2.4 % (8-40); MCH 27.4 pg (25.7-33.7); MCHC 32.5 g/dl (32.0-36.0); MEAN CELL VOLUME 84.1 fl (80-96); MEAN PLT VOLUME 8.3 fl (7.5-11.1); MONO % 1.7 % (3.8-10.2); NEUT % 95.7 % (42.8-82.8); PLATELET COUNT 430 K/MM3 (134-434); RBC 3.52 M/mm3 (3.60-5.2)
[2019-10-20 06:24] LABS: WHITE BLOOD COUNT 35.6 K/mm3 (4.0-10.0)
[2019-10-20] MEDS: INSULIN SLIDING SCALE (NOVOLOG) 1 VIAL SQ SCH ×4 (06:36→22:03)
[2019-10-20] MEDS: LEVOTHYROXINE NA 50 MCG TABLET (FP) PO SCH (06:38)
[2019-10-20 07:09] LABS: ALBUMIN 2.3 g/dl (3.4-5.0); BILIRUBIN,TOTAL 0.2 mg/dL (0.2-1); BLOOD UREA NITROGEN 41.8 mg/dL (7-18); CALCIUM 8.6 mg/dL (8.5-10.1); CREATININE 1.1 mg/dL (0.55-1.3); MAGNESIUM 2.4 mg/dL (1.8-2.4); PHOSPHOROUS 5.7 mg/dL (2.5-4.9); POTASSIUM 4.3 mmol/L (3.5-5.1); TOT PROT 6.1 g/dl (6.4-8.2)
[2019-10-20] MEDS: SODIUM CHLORIDE 1,000 ML IV SCH (09:00)
--- NOTE | 2019-10-20 09:22 | PN ---
Physical Exam: SUBJECTIVE: Patient seen and examined. No acute events overnight. OBJECTIVE: Vital Signs Period Temp Pulse Resp BP Sys/Riggins Pulse Ox Last 24 Hr 98.1 F-104.5 F 54-102 18-44 62-140/36-76 95-99 GENERAL: Awake and alert, on BiPAP. HEAD: Normal with no signs of trauma. EYES: PERRL, extraocular movements intact, sclera anicteric, conjunctiva clear. No ptosis. ENT: Ears normal, nares patent, oropharynx clear without exudates, moist mucous membranes. NECK: Trachea midline, full range of motion, supple. LUNGS: Coarse breath sounds BL, mild accessory muscle use, no wheezes, no crackles. On BiPAP. HEART: Regular rate and rhythm, S1, S2 without murmur, rub or gallop. ABDOMEN: Soft, nontender, nondistended, normoactive bowel sounds, no guarding, no rebound, no hepatosplenomegaly, no masses. EXTREMITIES: 2+ pulses, warm, well-perfused, no edema. NEUROLOGICAL: Oriented to name. Follows commands. SKIN: Warm, dry, normal turgor, no rashes or lesions noted Laboratory Results - last 24 hr CBC, BMP 10/20/19 05:30 10/20/19 05:30 Active Medications Acetaminophen (Tylenol -) 650 mg PO Q6H PRN PRN Reason: FEVER Albuterol Sulfate (Ventolin 0.083% Nebulizer Soln -) 1 amp NEB RQ4H [facility] Last Admin: 10/20/19 04:16 Dose: 1 amp Albuterol/Ipratropium (Duoneb -) 1 amp NEB Q4H PRN PRN Reason: SHORTNESS OF BREATH Chlorhexidine Gluconate (Hibiclens For Decolonization -) 1 applic TP HS [facility] Last Admin: 10/19/19 22:51 Dose: 1 applic Heparin Sodium (Porcine) (Heparin -) 5,000 unit SQ BID [facility] Last Admin: 10/19/19 22:51 Dose: 5,000 unit Vasopressin 50 units/ Sodium (Chloride) 100 mls @ 4 mls/hr IVPB TITR [facility]; Protocol Last Admin: 10/19/19 17:09 Dose: 4 units/hr, 8 mls/hr Norepinephrine Bitartrate 8, (000 mcg/ Dextrose) 500 mls @ 18.75 mls/hr IV TITR [facility]; Protocol Last Titration: 10/20/19 08:19 Dose: 0 mcg/min, 0 mls/hr Meropenem 1 gm/ Dextrose 100 mls @ 200 mls/hr IVPB Q8H-IV [facility] Last Admin: 10/20/19 01:10 Dose: 200 mls/hr Sodium Chloride (Normal Saline -) 1,000 mls @ 50 mls/hr IV ASDIR [facility] Insulin Aspart (Novolog Vial Sliding Scale -) 1 vial SQ ACHS [facility]; Protocol Last Admin: 10/20/19 06:36 Dose: Not Given Levothyroxine Sodium (Synthroid -) 50 mcg PO 0700 [facility] Last Admin: 10/20/19 06:38 Dose: 50 mcg Methylprednisolone Sodium Succinate (Solu-Medrol -) 40 mg IVPUSH Q8H-IV [facility] Last Admin: 10/20/19 01:10 Dose: 40 mg Mupirocin (Bactroban Ointment (For Decolonization) -) 1 applic NS BID [facility] Stop: 10/24/19 21:59 Last Admin: 10/19/19 23:45 Dose: 1 applic Pantoprazole Sodium (Protonix -) 40 mg PO DAILY [facility] Quetiapine Fumarate (Seroquel -) 200 mg PO BID [facility] Last Admin: 10/19/19 22:51 Dose: Not Given Risperidone (Risperdal -) 0.5 mg PO BID [facility] Last Admin: 10/19/19 22:51 Dose: Not Given Sertraline HCl (Zoloft -) 100 mg PO DAILY [facility] Vancomycin HCl (Vancomycin (Pre-Docked)) 1,000 mg IVPB DAILY@1700 [facility]; Protocol ASSESSMENT/PLAN: Patient is an 89 year old female with PMH of hearing deficit, COPD, ESBL UTIs, HFpEF(LVEF 60-65%, 09/15/18), hypothyroidism, Parkinson's BIBA for complaint of worsening lethargy, SOB, cough with white sputum x3d. Admitted for sepsis 2/2 PNA vs COPDe and UTI. Admitted to ICU for close monitoring and possibly need for advanced cardiopulmonary support. Pt's sister stating that pt would want to avoid extraordinary measure but not completely sure about intubation. Neurology -AMS 2/2 severe sepsis, UTI vs PNA -Hx of Parkinsons -Cont risperidone, seroquel, zoloft when tolerating po Cardiovascular -Hx of HFpEF, unlikely in exacerbation -BNP: 1113.8 -Echo (09/15/18): LVEF 60-65% -EKG (10/19/19): sinus tachy, QTc 401 -Monitor I's & O's, daily weights Pulmonary -?PNA vs COPD -CXR (10/19/19): coarse lung changes, superimposed congestive and possibly patchy infiltrates at the bases, tracheal deviation to the right -CXR (10/20/19): increaed lung markins persist, look like chronic changes but an infiltrate on R cannot be totally excluded -IV solumedrol 40mg Q8H -Duonebs Q4H standing and ventolin Q4H prn -IV abx -F/u ABG -Cont BiPAP (08/07/14/%), wean as tolerated -Will consider intubation if needed and cannot clarify advance directives Renal -WILBERT (Cr: 1.3-->1.1) -? UTI (UA: 1+ blood, 3+ LE, 462 WBC) -Gentle IVF NS @ 50ml/hr -IV abx GI -NPO while on BiPAP -Consider IV protonix fo GI ppx if prolonged steroids ID -Sepsis likely 2/2 UTI vs PNA -Received 1x vancomycin, cont Meropenem 1gm Q8H (Day 2) -ID following (Dr. Cortez) -Urine cx: growing proteus species -Blood cx pending Heme -Hx of normocytic anemia -Monitor CBC DVT ppx -Heparin sq FEN -Gentle hydration wtih IVF NS @ 50ml/hr -Monitor BMP, replete prn -NPO while on BiPAP Dispo: -Cont to monitor in ICU -Address GOC ("no extraordinary measures:, will need official documentation) Visit type - Emergency Visit Emergency Visit: No - New Patient This patient is new to me today: Yes Date on this admission: 10/20/19 - Critical Care Critical Care patient: Yes Total Critical Care Time (in minutes): 45 Critical Care Statement: The care of this patient involved high complexity decision making to prevent further life threatening deterioration of the patient's condition and/or to evaluate & treat vital organ system(s) failure or risk of failure. ATTENDING PHYSICIAN STATEMENT I saw and evaluated the patient. I reviewed the resident's note and discussed the case with the resident. I agree with the resident's findings and plan as documented. SUBJECTIVE: OBJECTIVE: ASSESSMENT AND PLAN:
[2019-10-20] MEDS: MUPIROCIN 2% TOPICAL OINTMENT FOR DECOLONIZATION NS SCH ×2 (10:11→22:26)
[2019-10-20] MEDS: SERTRALINE HCL 50 MG TABLET (FP) PO SCH (10:12)
[2019-10-20] MEDS: PANTOPRAZOLE 40 MG TABLET PO SCH (10:12)
[2019-10-20] MEDS: HEPARIN NA (PORCINE) 5,000 UNITS/ML 1ML VIAL SQ SCH ×2 (10:12→22:29)
[2019-10-20] MEDS: risperiDONE 0.5 MG TABLET PO SCH ×2 (10:13→22:25)
[2019-10-20] MEDS: QUEtiapine FUMARATE 50 MG TABLET PO SCH (10:16)
[2019-10-20 10:19] LABS: ANISOCYTOSIS 0; MACROCYTOSIS 0; PLATELET ESTIMATE NORMAL
[2019-10-20] MEDS ORDERED: ALBUTEROL SO4 0.083% IH SOL 2.5 MG/3 ML VIAL.NEB. NEB PRN (11:23)
--- NOTE | 2019-10-20 11:38 | PN ---
Teaching Attending Note Name of Resident: Sienna Zuniga ATTENDING PHYSICIAN STATEMENT I saw and evaluated the patient. I reviewed the resident's note and discussed the case with the resident. I agree with the resident's findings and plan as documented. SUBJECTIVE: Pt seen and examined in the ICU. Remains on BiPAP, tachypneic. Briefly on pressors overnight. OBJECTIVE: Vital Signs Period Temp Pulse Resp BP Sys/Riggins Pulse Ox Last 24 Hr 98.1 F-102.1 F 54-102 18-44 62-140/36-76 97-99 Intake & Output 10/17/19 10/18/19 10/19/19 10/20/19 23:59 23:59 23:59 23:59 Intake Total 50 90 Balance 50 90 Weight 41.64 kg 41.277 kg Gen: tachypneic on BiPAP Heart: RRR Lung: scattered rhonchi Abd: soft, nontender Ext: no edema CBC, BMP 10/20/19 05:30 10/20/19 05:30 Active Medications Acetaminophen (Tylenol -) 650 mg PO Q6H PRN PRN Reason: FEVER Albuterol Sulfate (Ventolin 0.083% Nebulizer Soln -) 1 amp NEB RQ4H PRN PRN Reason: SHORTNESS OF BREATH Albuterol/Ipratropium (Duoneb -) 1 amp NEB RQ4H [facility] Chlorhexidine Gluconate (Hibiclens For Decolonization -) 1 applic TP HS [facility] Last Admin: 10/19/19 22:51 Dose: 1 applic Heparin Sodium (Porcine) (Heparin -) 5,000 unit SQ BID [facility] Last Admin: 10/20/19 10:12 Dose: 5,000 unit Vasopressin 50 units/ Sodium (Chloride) 100 mls @ 4 mls/hr IVPB TITR [facility]; Protocol Last Titration: 10/20/19 07:00 Dose: 0 units/hr, 0 mls/hr Norepinephrine Bitartrate 8, (000 mcg/ Dextrose) 500 mls @ 18.75 mls/hr IV TITR [facility]; Protocol Last Titration: 10/20/19 08:19 Dose: 0 mcg/min, 0 mls/hr Meropenem 1 gm/ Dextrose 100 mls @ 200 mls/hr IVPB Q8H-IV [facility] Last Admin: 10/20/19 10:07 Dose: 200 mls/hr Sodium Chloride (Normal Saline -) 1,000 mls @ 50 mls/hr IV ASDIR [facility] Last Admin: 10/20/19 09:00 Dose: 50 mls/hr Insulin Aspart (Novolog Vial Sliding Scale -) 1 vial SQ ACHS [facility]; Protocol Last Admin: 10/20/19 06:36 Dose: Not Given Levothyroxine Sodium (Synthroid -) 50 mcg PO 0700 [facility] Last Admin: 10/20/19 06:38 Dose: 50 mcg Methylprednisolone Sodium Succinate (Solu-Medrol -) 40 mg IVPUSH Q8H-IV [facility] Last Admin: 10/20/19 10:08 Dose: 40 mg Mupirocin (Bactroban Ointment (For Decolonization) -) 1 applic NS BID [facility] Stop: 10/24/19 21:59 Last Admin: 10/20/19 10:11 Dose: 1 applic Pantoprazole Sodium (Protonix -) 40 mg PO DAILY [facility] Last Admin: 10/20/19 10:12 Dose: Not Given Quetiapine Fumarate (Seroquel -) 200 mg PO BID [facility] Risperidone (Risperdal -) 0.5 mg PO BID [facility] Last Admin: 10/20/19 10:13 Dose: Not Given Sertraline HCl (Zoloft -) 100 mg PO DAILY [facility] Last Admin: 10/20/19 10:12 Dose: Not Given Vancomycin HCl (Vancomycin (Pre-Docked)) 1,000 mg IVPB DAILY@1700 [facility]; Protocol ASSESSMENT AND PLAN: Acute Hypoxic Respiratory Failure Pneumonia UTI Septic Shock Acute COPD Exacerbation LV Diastolic Dysfunction Hypothyroidism Parkinsons - continue antibiotics - f/u cultures - continue medrol - inhaled bronchodilators - O2 to keep Spo2 >90% - BiPAP to assist in work of breathing - aspiration precautions - DVT prophylaxis - palliative care to assist in goals of care, advanced directives - continue ICU monitoring for now
--- NOTE | 2019-10-20 11:53 | PN ---
Progress Note (short form) - Note Progress Note: ID CONSULT DICTATED SEPSIS/ SEPTIC SHOCK UTI R/O SEPSIS SECONDARY TO FOCUS ACUTE EXACERBATION COPD R/O RLL PNEUMONIA PCN ALLERGY PARKINSONISM/ OBS HX ESBL UTI PENDING SEPSIS W/U CONTINUE EMPIRIC MEROPENEM HEMODYNAMIC SUPPORT DISCUSSED WITH SISTER AT BEDSIDE CRITICAL CARE TIME 35MIN
[2019-10-20] MEDS: ALBUTEROL SO4 2.5/IPRATROPIUM 0.5 INH SOL 3 ML VIAL.NEB. NEB SCH ×3 (12:30→22:26)
--- NOTE | 2019-10-20 12:39 | CONS ---
DATE OF CONSULTATION: DATE OF DICTATION: 10/20/2019 The patient is an 89-year-old female who was evaluated for sepsis/septic shock. History was obtained from the chart as well as the patient's sister who is present at the time of the examination. The patient is an 89-year-old female who lives at home. She was admitted to the hospital on October 19, 2019, with a 4-day history of worsening chest congestion and cough. She became progressively worse despite nebulizer treatments. She has a visiting nurse who noted her to be more congested. She was sent to the emergency room after she became more lethargic and weak. In the emergency room the patient was short of breath with tachypnea and hypoxemia. She was noted to have a fever of 104. An influenza swab was performed and was negative. Her course was complicated by hypotension and bradycardia. Patient required placement on BiPAP. At the present time she is in the intensive care unit on BiPAP mask. She had initially been on pressors for hypotension; however, these have been discontinued. The patient has a history of ESBL urinary tract infection in the past and was empirically treated with meropenem plus vancomycin. She was last hospitalized in July of 2019 for sepsis complicated by C. difficile colitis. Patient's sister reports that she has been congested with cough, with difficulty expectorating. No complaints of chest pain. She denies any recent hospitalizations or recent antibiotic therapy. No diarrhea. She did receive influenza vaccine. She denies any ill contacts. No known ill contacts at home. She is a nonsmoker. PAST MEDICAL HISTORY: Positive for parkinsonism, dementia, hypothyroidism, hyperlipidemia, hypertension, COPD, C. difficile colitis July 2019, positive urine culture ESBL 2017. PAST SURGICAL HISTORY: Status post cholecystectomy. ALLERGIES: AUGMENTIN (hives). Patient sister was unaware of the nature of the PENICILLIN allergy. MEDICATIONS: Synthroid, Risperdal, Zoloft, Protonix, BuSpar, Seroquel. SOCIAL HISTORY: As per HPI. REVIEW OF SYSTEMS: Neurologic: No loss of consciousness, seizure activity, focal weakness. Cardiac: Negative chest pain or pressure. Respiratory: As per HPI. Gastrointestinal: Negative vomiting or diarrhea. Genitourinary: Positive for urinary tract infection. LABORATORY DATA: White count 35.6, 96 neutrophils, 1 band, 1 lymphocyte. Hematocrit 29.6, platelet count 430. Creatinine 1.1. Urinalysis: White cells 462. Urine culture growing proteus species. Total bilirubin 0.2, alkaline phosphatase 159. AST 40. Chest x-ray shows increased markings at the right base, possible pneumonia. PHYSICAL EXAMINATION: General: She is an elderly female, frail, cachectic appearing. Vital Signs: T-max is 104. Blood pressure is 115/63, pulse 75, regular. Respirations 22 per minute. Patient is on BiPAP mask. Cardiovascular: Heart sounds S1, S2. No murmur. Lungs: Scattered rhonchi. Abdomen: Soft. No tenderness elicited. No mass, rebound, or rigidity. Extremities: Negative for edema. Negative Homans sign. IMPRESSION: 1. Sepsis, rule out septic shock. 2. Urinary tract infection, rule out sepsis secondary to urinary tract infection. 3. Acute exacerbation of chronic obstructive pulmonary disease. 4. Rule out right lower lobe community-acquired pneumonia. 5. PENICILLIN allergy. 6. Parkinsonism. 7. Dementia. Await sepsis workup. Obtain sputum culture, urine Legionella and pneumococcal antigens. Would continue meropenem for coverage of possible recurrent extended-spectrum beta-lactamase urinary tract infection pending sepsis workup. Hemodynamic support. Intensive care unit monitoring. Further recommendations pending sepsis workup. Case discussed with patient's sister present at the time of the examination. CRITICAL CARE TIME SPENT: Thirty-five minutes. Thank you for the kind referral. HAYLEY HALL M.D. [facility]/[id number]
[2019-10-20 15:21] LABS: ARTERIAL BLD GAS O2 SATURATION 95.3 % (95-98); ARTERIAL BLOOD GAS BASE EXCESS -1.7 meq/l (-2-2); ARTERIAL BLOOD GAS PCO2 38.4 mmHg (35-45); ARTERIAL BLOOD GAS PO2 81.5 mmHg (80-100); ARTERIAL BLOOD GAS pH 7.39 (7.35-7.45)
[2019-10-20 15:24] LABS: ALLENS TEST POSITIVE
--- NOTE | 2019-10-20 16:55 | PN ---
Progress Note, Physician History of Present Illness: on NC - Current Medication List Current Medications: Active Medications Acetaminophen (Tylenol -) 650 mg PO Q6H PRN PRN Reason: FEVER Albuterol Sulfate (Ventolin 0.083% Nebulizer Soln -) 1 amp NEB RQ4H PRN PRN Reason: SHORTNESS OF BREATH Albuterol/Ipratropium (Duoneb -) 1 amp NEB RQ4H [facility] Last Admin: 10/20/19 12:30 Dose: 1 amp Chlorhexidine Gluconate (Hibiclens For Decolonization -) 1 applic TP HS [facility] Last Admin: 10/19/19 22:51 Dose: 1 applic Heparin Sodium (Porcine) (Heparin -) 5,000 unit SQ BID [facility] Last Admin: 10/20/19 10:12 Dose: 5,000 unit Vasopressin 50 units/ Sodium (Chloride) 100 mls @ 4 mls/hr IVPB TITR [facility]; Protocol Last Titration: 10/20/19 07:00 Dose: 0 units/hr, 0 mls/hr Norepinephrine Bitartrate 8, (000 mcg/ Dextrose) 500 mls @ 18.75 mls/hr IV TITR [facility]; Protocol Last Titration: 10/20/19 08:19 Dose: 0 mcg/min, 0 mls/hr Meropenem 1 gm/ Dextrose 100 mls @ 200 mls/hr IVPB Q8H-IV [facility] Last Admin: 10/20/19 10:07 Dose: 200 mls/hr Sodium Chloride (Normal Saline -) 1,000 mls @ 50 mls/hr IV ASDIR [facility] Last Admin: 10/20/19 09:00 Dose: 50 mls/hr Insulin Aspart (Novolog Vial Sliding Scale -) 1 vial SQ ACHS [facility]; Protocol Last Admin: 10/20/19 11:47 Dose: Not Given Levothyroxine Sodium (Synthroid -) 50 mcg PO 0700 [facility] Last Admin: 10/20/19 06:38 Dose: 50 mcg Methylprednisolone Sodium Succinate (Solu-Medrol -) 40 mg IVPUSH Q8H-IV [facility] Last Admin: 10/20/19 10:08 Dose: 40 mg Mupirocin (Bactroban Ointment (For Decolonization) -) 1 applic NS BID [facility] Stop: 10/24/19 21:59 Last Admin: 10/20/19 10:11 Dose: 1 applic Pantoprazole Sodium (Protonix -) 40 mg PO DAILY [facility] Last Admin: 10/20/19 10:12 Dose: Not Given Quetiapine Fumarate (Seroquel -) 200 mg PO BID [facility] Risperidone (Risperdal -) 0.5 mg PO BID [facility] Last Admin: 10/20/19 10:13 Dose: Not Given Sertraline HCl (Zoloft -) 100 mg PO DAILY [facility] Last Admin: 10/20/19 10:12 Dose: Not Given Vancomycin HCl (Vancomycin (Pre-Docked)) 1,000 mg IVPB DAILY@1700 [facility]; Protocol - Objective Vital Signs: Vital Signs Temperature 98.2 F 10/20/19 15:33 Pulse Rate 84 10/20/19 15:33 Respiratory Rate 27 H 10/20/19 15:33 Blood Pressure 118/61 10/20/19 15:33 O2 Sat by Pulse Oximetry (%) 97 10/20/19 15:36 Constitutional: Yes: No Distress HENT: Yes: Atraumatic Neck: Yes: Supple Cardiovascular: Yes: Regular Rate and Rhythm Respiratory: Yes: Rhonchi Gastrointestinal: Yes: Normal Bowel Sounds Neurological: Yes: Alert, Oriented Labs: CBC, BMP 10/20/19 05:30 10/20/19 05:30 INR, PTT INR 1.37 (0.83-1.09) H 10/19/19 11:30 Problem List - Problems (1) PNA (pneumonia) Assessment/Plan: iv abx on NE duo nebs cxs note Code(s): J18.9 - PNEUMONIA, UNSPECIFIED ORGANISM (2) Pulmonary fibrosis Assessment/Plan: on NC stable Code(s): J84.10 - PULMONARY FIBROSIS, UNSPECIFIED (3) UTI (urinary tract infection) Assessment/Plan: on iv abx Code(s): N39.0 - URINARY TRACT INFECTION, SITE NOT SPECIFIED (4) Anxiety and depression Code(s): F41.9 - ANXIETY DISORDER, UNSPECIFIED; F32.9 - MAJOR DEPRESSIVE DISORDER, SINGLE EPISODE, UNSPECIFIED (5) Hypothyroidism Code(s): E03.9 - HYPOTHYROIDISM, UNSPECIFIED (6) Parkinson disease Code(s): G20 - PARKINSON'S DISEASE (7) Seizure disorder Code(s): G40.909 - EPILEPSY, UNSP, NOT INTRACTABLE, WITHOUT STATUS EPILEPTICUS Assessment/Plan cc time 30 min
[2019-10-20] MEDS ORDERED: VANCOMYCIN 1 GM in D5W (PRE-DOCKED) 1,000 MG/250 ML IVPB SCH (17:00)
[2019-10-20] MEDS: VASOPRESSIN 50 UNITS in SODIUM CHLORIDE 97.5 ML IVPB SCH (17:34)
[2019-10-20] MEDS: NOREPINEPHRINE BITARTRATE 8,000 MCG in DEXTROSE 5%-WATER - 492 ML IV SCH (21:54)
[2019-10-20] MEDS: QUEtiapine FUMARATE 200 MG TABLET PO SCH (22:24)
[2019-10-20] MEDS: CHLORHEXIDINE GLUCONATE 4% CLEANSER FOR DECOLONIZATION TP SCH (22:28)
[2019-10-21] MEDS: ALBUTEROL SO4 2.5/IPRATROPIUM 0.5 INH SOL 3 ML VIAL.NEB. NEB SCH ×6 (00:01→20:34)
[2019-10-21] MEDS: MEROPENEM 1 GM in DEXTROSE 5%-WATER 100 ML IVPB SCH ×3 (01:29→17:04)
[2019-10-21] MEDS: methylPREDNISolone NA SUCC 40 MG/1 ML VIAL IVPUSH SCH ×3 (01:29→21:17)
[2019-10-21] MEDS: SODIUM CHLORIDE 1,000 ML IV SCH ×2 (05:41→09:23)
[2019-10-21] MEDS: ACETAMINOPHEN 325 MG TABLET (FP) PO PRN (05:52)
[2019-10-21] MEDS: LEVOTHYROXINE NA 50 MCG TABLET (FP) PO SCH (06:08)
[2019-10-21] MEDS: INSULIN SLIDING SCALE (NOVOLOG) 1 VIAL SQ SCH ×4 (06:09→21:16)
[2019-10-21 06:33] LABS: BASO % 0.1 % (0-2.0); HEMATOCRIT 28.8 % (32.4-45.2); HEMOGLOBIN 9.4 GM/dL (10.7-15.3); LYMPH % 2.3 % (8-40); MCH 27.5 pg (25.7-33.7); MCHC 32.6 g/dl (32.0-36.0); MEAN CELL VOLUME 84.4 fl (80-96); MEAN PLT VOLUME 8.3 fl (7.5-11.1); MONO % 1.4 % (3.8-10.2); NEUT % 96.2 % (42.8-82.8); PLATELET COUNT 405 K/MM3 (134-434); RBC 3.41 M/mm3 (3.60-5.2); RDW 16.1 % (11.6-15.6); WHITE BLOOD COUNT 24.6 K/mm3 (4.0-10.0)
[2019-10-21 06:48] LABS: ALBUMIN 2.2 g/dl (3.4-5.0); BILIRUBIN,TOTAL 0.2 mg/dL (0.2-1); CALCIUM 9.1 mg/dL (8.5-10.1); CREATININE 0.8 mg/dL (0.55-1.3); MAGNESIUM 2.5 mg/dL (1.8-2.4); PHOSPHOROUS 3.2 mg/dL (2.5-4.9); POTASSIUM 3.9 mmol/L (3.5-5.1); TOT PROT 5.9 g/dl (6.4-8.2)
[2019-10-21] MEDS ORDERED: PT OWN MED DRAWER 7, Y5N ONE ×2 (08:30→21:08)
[2019-10-21] MEDS ORDERED: MEROPENEM 1 GM VIAL (RESTRICTED TO ID) IVPB ONE ×3 (09:18→21:07)
[2019-10-21] MEDS ORDERED: DEXTROSE 5%-WATER 100 ML IVPB ONE ×3 (09:18→21:07)
[2019-10-21] MEDS: HEPARIN NA (PORCINE) 5,000 UNITS/ML 1ML VIAL SQ SCH ×2 (09:24→21:11)
[2019-10-21] MEDS: MUPIROCIN 2% TOPICAL OINTMENT FOR DECOLONIZATION NS SCH ×2 (09:25→21:11)
[2019-10-21] MEDS: risperiDONE 0.5 MG TABLET PO SCH ×2 (09:26→21:17)
[2019-10-21] MEDS: PANTOPRAZOLE 40 MG TABLET PO SCH (09:26)
[2019-10-21] MEDS: QUEtiapine FUMARATE 200 MG TABLET PO SCH ×2 (09:27→21:17)
[2019-10-21] MEDS: SERTRALINE HCL 50 MG TABLET (FP) PO SCH (09:28)
--- NOTE | 2019-10-21 09:55 | CONSULT ---
Admitting History and Physical - Primary Care Physician PCP: Luna Smith - Admission History of Present Illness: Per EMR- 89 year old female with a significant PMH of COPD, HTN, HLD, and recent admission for C diff on 09/20 who presents to the ED for evaluation of about 4 days of cough with congestion and 2 days of nausea and vomiting. Acute Hypoxic Respiratory Failure Pneumonia UTI Septic Shock Acute COPD Exacerbation LV Diastolic Dysfunction Hypothyroidism Parkinsons Selected Entries 10/19/19 10/20/19 10/20/19 20:17 02:00 06:00 Breakfast Supper NPO Temperature 98.1 F 98.2 F 10/20/19 10/20/19 10/20/19 11:00 15:33 19:33 Breakfast Supper NPO Temperature 97.7 F 98.2 F 10/20/19 10/21/19 10/21/19 21:00 03:00 08:21 Breakfast Supper Temperature 98.3 F 98.3 F 97.7 F 10/21/19 08:51 Breakfast NPO Supper Temperature Laboratory Tests 10/19/19 10/20/19 10/21/19 11:30 05:30 05:00 WBC 34.9 H* 35.6 H* 24.6 H Nursing reports good tolerance of apple juice yesterday. Clear liquid diet ordered. Today, nursing reported responsive cough with thin liquid. Recent MBS (-)- tolerated soft, chopped meat, thin liquid in Sep 2018 admission History Source: Medical Record Limitations to Obtaining History: Clinical Condition (very NEZ PERCE. Hearing aids at home. Call to be placed to bring them in) - Past Medical History CLINICAL TRIAL SPECIALIST: Yes: Dementia, Parkinson's, Seizure Cardiovascular: Yes: CAD, CHF (diastolic), HTN Pulmonary: Yes: Other (aspiration pneumonia x 2 in 2008) Gastrointestinal: Yes: Diverticulosis, GERD, Hiatal Hernia, Other (chronic diarrhea . Colon adenoma removed 2011.) Hepatobiliary: Yes: Cholelithiasis (s/p cholecystectomy) Renal/: Yes: UTI ...: No Infectious Disease: Yes: C-Diff Psych: Yes: Depression Endocrine: Yes: Hypothyroidism - Past Surgical History Past Surgical History: Yes: Cholecystectomy, Colonoscopy (07/18/12 = adenoma removed, diverticulosis seen), Upper Endoscopy (1) - Advance Directives Advance Directives: Yes: Health Care Proxy - Smoking History Smoking history: Unknown if ever smoked Have you smoked in the past 12 months: No Aproximately how many cigarettes per day: 0 If you are a former smoker, when did you quit?: Over 40 years ago - Alcohol/Substance Use Hx Alcohol Use: No History of Substance Use: reports: None - Social History ADL: Family Assistance 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 History of Recent Travel: No History - Admission Reason For Visit: UTI,FIBROSIS OF LUNG,PNEUMONIA - Diagnostics X-ray: Report Reviewed - General Mental Status: Awake and Alert, Able to Follow Commands, Intermittently Confused (Severe hearing loss adversely affects communication and assessment,) Attention: Intact Ability to Follow Directions: Fair (if heard) Head/Neck Control: Good - Hearing Hearing: Impaired Hearing: Impaired Hearing Aide: No With Patient: No Speech Evaluation - Communication Primary Language: TURKMEN Communication: Yes: Within Normal Limits - Speech Production Apraxia: No Able to Make Needs Known: Yes: WNL Intelligibility: Yes: WNL - Speech Characteristics Voice Loudness: Mildly Soft/Quiet Voice Pitch: Yes: Normal Voice Phonatory-based Quality: Yes: Dysphonia Speech Clarity: < 100% Nasal Resonance: Normal Rate of Speech: Intact - Language/Auditory Comprehension Observation: Comprehends Conversational Speech: Yes (intermittent. VERY NEZ PERCE), Benefits from Slow Speech: Yes, Benefits from Repetiton: Yes, Benefits from Increased Volume of Speech: Yes - Language/Verbal Expression Able to Communicate Wants and Needs: Yes: WNL Functional Communication Status: Yes: Moderately Impaired (NEZ PERCE) - Swallow Evaluation/Bedside Assessment Current Nutritional Intake: Clear Liquids Oral Secretions: Yes: WFL Dentition: Yes: Edentulous (lowers), Dental Appliance Upper Facial Symmetry at Rest: Symmetrical Facial Symmetry on Retraction: Symmetrical Against Resistance Opening: Normal Against Resistance Closing: Normal Pucker Lips: Normal Smile: Normal Lingual Movement: Normal, Symmetric Lingual Speed of Movement: Normal Lingual Movement Strgth Against Opposition: Normal Lingual Movement Characteristics: Normal Velopharyngeal Movement: Normal Laryngeal Movement: Able to Palpate Bolus Size: WFL Labial Seal: WFL A-P Transit: WFL Pocketing: None Timing of Swallow: WFL Coughing/Throat Clear: Yes (intermittently on thin liquid) Recommendations - Speech Evaluation, Impression/Plan Impression: Mild dysphonia. r/o intermittent aspiration on thin liquids? - Dysphagia Impressions/Plan Dysphagia Impressions: Risk of Aspiration, Ongoing Evaluation *Silent aspiration: cannot be R/O at bedside Dysphagia Treatment Plan: Small Bites, Trial Feedings, Safe Rate, 1/2 tsp. at a time, Elevate HOB during feed, OOB for meals Recommendations: Modified Barium Swallow - Recommendations Diet Consistency: Dysphagia Minced Medication Administration: Crushed with applesauce Liquids: [place] Thick Supplement: Magic Cup, Ensure Pudding, Other (2 coby HN)
--- NOTE | 2019-10-21 11:25 | PN ---
Progress Note, Physician History of Present Illness: AWAKE, ALERT HARD OF HEARING OFFERS NO COMPLAINTS BREATHING NON LABORED ON NASALA CANNULA TEMPS DOWN AFEBRILE WBC IMPROVED - Current Medication List Current Medications: Active Medications Acetaminophen (Tylenol -) 650 mg PO Q6H PRN PRN Reason: FEVER Last Admin: 10/21/19 05:52 Dose: 650 mg Albuterol Sulfate (Ventolin 0.083% Nebulizer Soln -) 1 amp NEB RQ4H PRN PRN Reason: SHORTNESS OF BREATH Albuterol/Ipratropium (Duoneb -) 1 amp NEB RQ4H [facility] Last Admin: 10/21/19 04:28 Dose: 1 amp Chlorhexidine Gluconate (Hibiclens For Decolonization -) 1 applic TP HS [facility] Last Admin: 10/20/19 22:28 Dose: 1 applic Heparin Sodium (Porcine) (Heparin -) 5,000 unit SQ BID [facility] Last Admin: 10/21/19 09:24 Dose: 5,000 unit Vasopressin 50 units/ Sodium (Chloride) 100 mls @ 4 mls/hr IVPB TITR [facility]; Protocol Last Admin: 10/20/19 17:34 Dose: Not Given Norepinephrine Bitartrate 8, (000 mcg/ Dextrose) 500 mls @ 18.75 mls/hr IV TITR [facility]; Protocol Last Admin: 10/20/19 21:54 Dose: Not Given Meropenem 1 gm/ Dextrose 100 mls @ 200 mls/hr IVPB Q8H-IV [facility] Last Admin: 10/21/19 09:22 Dose: 200 mls/hr Sodium Chloride (Normal Saline -) 1,000 mls @ 50 mls/hr IV ASDIR [facility] Last Admin: 10/21/19 09:23 Dose: 50 mls/hr Insulin Aspart (Novolog Vial Sliding Scale -) 1 vial SQ ACHS [facility]; Protocol Last Admin: 10/21/19 11:12 Dose: 4 units Levothyroxine Sodium (Synthroid -) 50 mcg PO 0700 [facility] Last Admin: 10/21/19 06:08 Dose: 50 mcg Methylprednisolone Sodium Succinate (Solu-Medrol -) 40 mg IVPUSH BID [facility] Mupirocin (Bactroban Ointment (For Decolonization) -) 1 applic NS BID [facility] Stop: 10/24/19 21:59 Last Admin: 10/21/19 09:25 Dose: 1 applic Pantoprazole Sodium (Protonix -) 40 mg PO DAILY [facility] Last Admin: 10/21/19 09:26 Dose: 40 mg Quetiapine Fumarate (Seroquel -) 200 mg PO BID [facility] Last Admin: 10/21/19 09:27 Dose: 200 mg Risperidone (Risperdal -) 0.5 mg PO BID [facility] Last Admin: 10/21/19 09:26 Dose: 0.5 mg Sertraline HCl (Zoloft -) 100 mg PO DAILY [facility] Last Admin: 10/21/19 09:28 Dose: 100 mg Vancomycin HCl (Vancomycin (Pre-Docked)) 1,000 mg IVPB DAILY@1700 [facility]; Protocol - Objective Vital Signs: Vital Signs Temperature 97.7 F 10/21/19 08:21 Pulse Rate 92 H 10/21/19 11:20 Respiratory Rate 26 H 10/21/19 11:20 Blood Pressure 124/58 L 10/21/19 11:00 O2 Sat by Pulse Oximetry (%) 97 10/21/19 08:46 Constitutional: Yes: No Distress, Cachectic Eyes: Yes: Conjunctiva Clear Cardiovascular: Yes: Regular Rate and Rhythm, S1, S2 Respiratory: Yes: Diminished Gastrointestinal: Yes: Normal Bowel Sounds, Soft. No: Tenderness Edema: No Labs: CBC, BMP 10/21/19 05:00 10/21/19 05:00 INR, PTT INR 1.37 (0.83-1.09) H 10/19/19 11:30 Assessment/Plan SEPTIC SHOCK IMPROVED UTI R/O SEPSIS SECONDARY TO FOCUS EXACERBATION COPD ? PNEUMONIA FEVER/ LEUKOCYTOSIS IMPROVED PCN ALLERGY AWAIT FINAL SUSCEPTIBILITIES CONTINUE MEROPENEM
--- NOTE | 2019-10-21 11:34 | PN ---
Teaching Attending Note Name of Resident: Eduardo Boyer ATTENDING PHYSICIAN STATEMENT I saw and evaluated the patient. I reviewed the resident's note and discussed the case with the resident. I agree with the resident's findings and plan as documented. SUBJECTIVE: Pt seen and examined in the ICU. Breathing improving. Off BiPAP with less labored breaths. No fevers recorded. OBJECTIVE: Vital Signs Period Temp Pulse Resp BP Sys/Riggins Pulse Ox Last 24 Hr 97.7 F-98.3 F 78-102 19-28 109-151/55-105 94-97 Intake & Output 10/18/19 10/19/19 10/20/19 10/21/19 23:59 23:59 23:59 23:59 Intake Total 50 1717.5 600 Balance 50 1717.5 600 Weight 41.64 kg 41.277 kg 43.091 kg Gen: less tachypneic Heart: RRR Lung: scattered bilateral rhonchi Abd: soft, nontender Ext: no edema CBC, BMP 10/21/19 05:00 10/21/19 05:00 Active Medications Acetaminophen (Tylenol -) 650 mg PO Q6H PRN PRN Reason: FEVER Last Admin: 10/21/19 05:52 Dose: 650 mg Albuterol Sulfate (Ventolin 0.083% Nebulizer Soln -) 1 amp NEB RQ4H PRN PRN Reason: SHORTNESS OF BREATH Albuterol/Ipratropium (Duoneb -) 1 amp NEB RQ4H [facility] Last Admin: 10/21/19 04:28 Dose: 1 amp Chlorhexidine Gluconate (Hibiclens For Decolonization -) 1 applic TP HS [facility] Last Admin: 10/20/19 22:28 Dose: 1 applic Heparin Sodium (Porcine) (Heparin -) 5,000 unit SQ BID [facility] Last Admin: 10/21/19 09:24 Dose: 5,000 unit Vasopressin 50 units/ Sodium (Chloride) 100 mls @ 4 mls/hr IVPB TITR [facility]; Protocol Last Admin: 10/20/19 17:34 Dose: Not Given Norepinephrine Bitartrate 8, (000 mcg/ Dextrose) 500 mls @ 18.75 mls/hr IV TITR [facility]; Protocol Last Admin: 10/20/19 21:54 Dose: Not Given Meropenem 1 gm/ Dextrose 100 mls @ 200 mls/hr IVPB Q8H-IV [facility] Last Admin: 10/21/19 09:22 Dose: 200 mls/hr Sodium Chloride (Normal Saline -) 1,000 mls @ 50 mls/hr IV ASDIR [facility] Last Admin: 10/21/19 09:23 Dose: 50 mls/hr Insulin Aspart (Novolog Vial Sliding Scale -) 1 vial SQ ACHS [facility]; Protocol Last Admin: 10/21/19 11:12 Dose: 4 units Levothyroxine Sodium (Synthroid -) 50 mcg PO 0700 [facility] Last Admin: 10/21/19 06:08 Dose: 50 mcg Methylprednisolone Sodium Succinate (Solu-Medrol -) 40 mg IVPUSH BID [facility] Mupirocin (Bactroban Ointment (For Decolonization) -) 1 applic NS BID [facility] Stop: 10/24/19 21:59 Last Admin: 10/21/19 09:25 Dose: 1 applic Pantoprazole Sodium (Protonix -) 40 mg PO DAILY [facility] Last Admin: 10/21/19 09:26 Dose: 40 mg Quetiapine Fumarate (Seroquel -) 200 mg PO BID [facility] Last Admin: 10/21/19 09:27 Dose: 200 mg Risperidone (Risperdal -) 0.5 mg PO BID [facility] Last Admin: 10/21/19 09:26 Dose: 0.5 mg Sertraline HCl (Zoloft -) 100 mg PO DAILY [facility] Last Admin: 10/21/19 09:28 Dose: 100 mg Vancomycin HCl (Vancomycin (Pre-Docked)) 1,000 mg IVPB DAILY@1700 [facility]; Protocol ASSESSMENT AND PLAN: Acute Hypoxic Respiratory Failure improving Pneumonia UTI Septic Shock Acute COPD Exacerbation LV Diastolic Dysfunction Hypothyroidism Parkinsons - continue antibiotics - f/u cultures - taper medrol - inhaled bronchodilators - O2 to keep Spo2 >90% - BiPAP as needed to assist in work of breathing - aspiration precautions - DVT prophylaxis - can monitor on floor
--- NOTE | 2019-10-21 13:22 | PN ---
Physical Exam: SUBJECTIVE: Patient seen and examined NAEON weaned off BiPAP overnight, on NC @4L Denies SOB, dyspnea OBJECTIVE: Vital Signs Period Temp Pulse Resp BP Sys/Riggins Pulse Ox Last 24 Hr 97.7 F-98.3 F 82-102 19-28 113-151/56-105 97-97 GENERAL: Awake and alert HEAD: Normal with no signs of trauma. EYES: PERRL, extraocular movements intact, sclera anicteric, conjunctiva clear. No ptosis. ENT: Ears normal, nares patent, oropharynx clear without exudates, moist mucous membranes. NECK: Trachea midline, full range of motion, supple. LUNGS: Coarse breath sounds BL, mild accessory muscle use, no wheezes, no crackles. On NC@4L HEART: Regular rate and rhythm, S1, S2 without murmur, rub or gallop. ABDOMEN: Soft, nontender, nondistended, normoactive bowel sounds, no guarding, no rebound EXTREMITIES: 2+ pulses, warm, well-perfused, no edema. NEUROLOGICAL: Oriented to name, place, month. Follows commands. SKIN: Warm, dry, normal turgor, no rashes or lesions noted Laboratory Results - last 24 hr 10/20/19 10/20/19 10/20/19 14:49 16:56 21:58 WBC RBC Hgb Hct MCV MCH MCHC RDW Plt Count MPV Absolute Neuts (auto) Total Counted Neutrophils % Neutrophils % (Manual) Band Neutrophils % Lymphocytes % Lymphocytes % (Manual) Monocytes % Eosinophils % Basophils % Nucleated RBC % Hypochromia Poikilocytosis Joss Cells Anticoagulation Therapy No Result Required. Puncture Site Right radial ABG pH 7.39 ABG pCO2 at Pt Temp 38.4 ABG pO2 at Pt Temp 81.5 ABG HCO3 22.5 ABG O2 Sat (Measured) 95.3 ABG O2 Content 15.4 ABG Base Excess -1.7 Ross Test Positive O2 Delivery Device No Result Required. Oxygen Flow Rate 30 Vent Mode Bipap Vent Rate 14 Mechanical Rate No Result Required. Pressure Support Vent 12/6 Sodium Potassium Chloride Carbon Dioxide Anion Gap BUN Creatinine Est GFR (CKD-EPI)AfAm Est GFR (CKD-EPI)NonAf POC Glucometer 92 127 Random Glucose Calcium Phosphorus Magnesium Total Bilirubin AST ALT Alkaline Phosphatase Total Protein Albumin 10/21/19 10/21/19 10/21/19 05:00 05:00 05:45 WBC 24.6 H RBC 3.41 L Hgb 9.4 L Hct 28.8 L MCV 84.4 MCH 27.5 MCHC 32.6 RDW 16.1 H Plt Count 405 MPV 8.3 Absolute Neuts (auto) 23.7 H Total Counted 100 Neutrophils % 96.2 H Neutrophils % (Manual) 97.0 H Band Neutrophils % 1.0 Lymphocytes % 2.3 L Lymphocytes % (Manual) 2.0 L D Monocytes % 1.4 L Eosinophils % 0.0 Basophils % 0.1 Nucleated RBC % 0 Hypochromia 1+ Poikilocytosis 2+ [place] Cells 2+ Anticoagulation Therapy Puncture Site ABG pH ABG pCO2 at Pt Temp ABG pO2 at Pt Temp ABG HCO3 ABG O2 Sat (Measured) ABG O2 Content ABG Base Excess Ross Test O2 Delivery Device Oxygen Flow Rate Vent Mode Vent Rate Mechanical Rate Pressure Support Vent Sodium 145 Potassium 3.9 Chloride 115 H Carbon Dioxide 24 Anion Gap 6 L BUN 33.0 H Creatinine 0.8 Est GFR (CKD-EPI)AfAm 75.76 Est GFR (CKD-EPI)NonAf 65.36 POC Glucometer 147 Random Glucose 150 H Calcium 9.1 Phosphorus 3.2 Magnesium 2.5 H Total Bilirubin 0.2 AST 23 ALT 37 Alkaline Phosphatase 130 H Total Protein 5.9 L Albumin 2.2 L 10/21/19 11:10 WBC RBC Hgb Hct MCV MCH MCHC RDW Plt Count MPV Absolute Neuts (auto) Total Counted Neutrophils % Neutrophils % (Manual) Band Neutrophils % Lymphocytes % Lymphocytes % (Manual) Monocytes % Eosinophils % Basophils % Nucleated RBC % Hypochromia Poikilocytosis [place] Cells Anticoagulation Therapy Puncture Site ABG pH ABG pCO2 at Pt Temp ABG pO2 at Pt Temp ABG HCO3 ABG O2 Sat (Measured) ABG O2 Content ABG Base Excess Ross Test O2 Delivery Device Oxygen Flow Rate Vent Mode Vent Rate Mechanical Rate Pressure Support Vent Sodium Potassium Chloride Carbon Dioxide Anion Gap BUN Creatinine Est GFR (CKD-EPI)AfAm Est GFR (CKD-EPI)NonAf POC Glucometer 205 Random Glucose Calcium Phosphorus Magnesium Total Bilirubin AST ALT Alkaline Phosphatase Total Protein Albumin Active Medications Generic Name Dose Route Start Last Admin Trade Name Freq PRN Reason Stop Dose Admin Acetaminophen 650 mg 10/19/19 14:14 10/21/19 05:52 Tylenol - PO 650 mg Q6H PRN Administration FEVER Albuterol Sulfate 1 amp 10/20/19 11:23 Ventolin 0.083% Nebulizer Soln - NEB RQ4H PRN SHORTNESS OF BREATH Albuterol/Ipratropium 1 amp 10/20/19 12:00 10/21/19 04:28 Duoneb - NEB 1 amp RQ4H [facility] Administration Chlorhexidine Gluconate 1 applic 10/19/19 22:00 10/20/19 22:28 Hibiclens For Decolonization - TP 1 applic HS [facility] Administration Heparin Sodium (Porcine) 5,000 unit 10/19/19 22:00 10/21/19 09:24 Heparin - SQ 5,000 unit BID [facility] Administration Vasopressin 50 units/ Sodium 100 mls @ 4 mls/hr 10/19/19 17:00 10/20/19 17:34 Chloride IVPB Not Given TITR [facility] Protocol 2 UNITS/HR Norepinephrine Bitartrate 8, 500 mls @ 18.75 mls/hr 10/19/19 18:15 10/20/19 21:54 000 mcg/ Dextrose IV Not Given TITR [facility] Protocol 5 MCG/MIN Meropenem 1 gm/ Dextrose 100 mls @ 200 mls/hr 10/20/19 02:00 10/21/19 09:22 IVPB 200 mls/hr Q8H-IV [facility] Administration Sodium Chloride 1,000 mls @ 50 mls/hr 10/20/19 08:30 10/21/19 09:23 Normal Saline - IV 50 mls/hr ASDIR [facility] Administration Insulin Aspart 1 vial 10/19/19 16:30 10/21/19 11:12 Novolog Vial Sliding Scale - SQ 4 units ACHS [facility] Administration Protocol Levothyroxine Sodium 50 mcg 10/20/19 07:00 10/21/19 06:08 Synthroid - PO 50 mcg 0700 [facility] Administration Methylprednisolone Sodium Succinate 40 mg 10/21/19 22:00 Solu-Medrol - IVPUSH BID [facility] Mupirocin 1 applic 10/19/19 22:00 10/21/19 09:25 Bactroban Ointment (For Decolonization) - NS 10/24/19 21:59 1 applic BID [facility] Administration Pantoprazole Sodium 40 mg 10/20/19 10:00 10/21/19 09:26 Protonix - PO 40 mg DAILY [facility] Administration Quetiapine Fumarate 200 mg 10/20/19 10:30 10/21/19 09:27 Seroquel - PO 200 mg BID [facility] Administration Risperidone 0.5 mg 10/19/19 22:00 10/21/19 09:26 Risperdal - PO 0.5 mg BID [facility] Administration Sertraline HCl 100 mg 10/20/19 10:00 10/21/19 09:28 Zoloft - PO 100 mg DAILY [facility] Administration Vancomycin HCl 1,000 mg 10/20/19 17:00 Vancomycin (Pre-Docked) IVPB DAILY@1700 [facility] Protocol ASSESSMENT/PLAN: 89 year old female with PMH of hearing deficit, COPD, ESBL UTIs, HFpEF(LVEF 60- 65%, 09/15/18), hypothyroidism, Parkinson's BIBA for complaint of worsening lethargy, SOB, cough with white sputum x3d. Admitted for sepsis 2/2 PNA vs COPDe and UTI. Admitted to ICU for close monitoring and possibly need for advanced cardiopulmonary support. Pt's sister stating that pt would want to avoid extraordinary measure but not completely sure about intubation. Neurology -AMS 2/2 severe sepsis, UTI vs PNA -Hx of Parkinsons -Cont risperidone, seroquel, zoloft Cardiovascular -Hx of HFpEF, unlikely in exacerbation -BNP: 1113.8 -Echo (09/15/18): LVEF 60-65% -EKG (10/19/19): sinus tachy, QTc 401 -Monitor I's & O's, daily weights Pulmonary -?PNA vs COPD -CXR (10/19/19): coarse lung changes, superimposed congestive and possibly patchy infiltrates at the bases, tracheal deviation to the right -CXR (10/20/19): incresaed lung markings persist, look like chronic changes but an infiltrate on R cannot be totally excluded -CXR (10/21/19): increased lung marings w/ possible Left base infiltrate -IV solumedrol 40mg Q8H --> Q12H -Duonebs Q4H standing and ventolin Q4H prn -IV abx -weaned off BiPAP to NC O2 Renal -WILBERT (Cr: 1.3-->1.1---> 0.8) -? UTI (UA: 1+ blood, 3+ LE, 462 WBC) -Gentle IVF NS @ 50ml/hr -IV abx GI - start diet, now that BiPAP is off -MBS is pending ID -Sepsis likely 2/2 UTI vs PNA -Received 1x vancomycin, cont Meropenem 1gm Q8H (Day 2) -ID following (Dr. Cortez): --meropenem, vanco -Urine cx: growing proteus species -Blood cx: NGTD Heme -Hx of normocytic anemia -Monitor CBC DVT ppx -Heparin sq FEN -Gentle hydration wtih IVF NS @ 50ml/hr -Monitor BMP, replete prn -Dysphagia Puree Dispo: -Downgrade from ICU to Tele -Address GOC ("no extraordinary measures:, will need official documentation) Visit type - Emergency Visit Emergency Visit: No - New Patient This patient is new to me today: No - Critical Care Critical Care patient: Yes Total Critical Care Time (in minutes): 35 Critical Care Statement: The care of this patient involved high complexity decision making to prevent further life threatening deterioration of the patient's condition and/or to evaluate & treat vital organ system(s) failure or risk of failure. ATTENDING PHYSICIAN STATEMENT I saw and evaluated the patient. I reviewed the resident's note and discussed the case with the resident. I agree with the resident's findings and plan as documented. SUBJECTIVE: OBJECTIVE: ASSESSMENT AND PLAN:
[2019-10-21 14:41] VITALS: BMI 18.5
--- NOTE | 2019-10-21 17:02 | PN ---
Progress Note, Physician History of Present Illness: on NC - Current Medication List Current Medications: Active Medications Acetaminophen (Tylenol -) 650 mg PO Q6H PRN PRN Reason: FEVER Last Admin: 10/21/19 05:52 Dose: 650 mg Albuterol Sulfate (Ventolin 0.083% Nebulizer Soln -) 1 amp NEB RQ4H PRN PRN Reason: SHORTNESS OF BREATH Albuterol/Ipratropium (Duoneb -) 1 amp NEB RQ4H [facility] Last Admin: 10/21/19 15:45 Dose: 1 amp Chlorhexidine Gluconate (Hibiclens For Decolonization -) 1 applic TP HS [facility] Last Admin: 10/20/19 22:28 Dose: 1 applic Heparin Sodium (Porcine) (Heparin -) 5,000 unit SQ BID [facility] Last Admin: 10/21/19 09:24 Dose: 5,000 unit Norepinephrine Bitartrate 8, (000 mcg/ Dextrose) 500 mls @ 18.75 mls/hr IV TITR [facility]; Protocol Last Admin: 10/20/19 21:54 Dose: Not Given Meropenem 1 gm/ Dextrose 100 mls @ 200 mls/hr IVPB Q8H-IV [facility] Last Admin: 10/21/19 09:22 Dose: 200 mls/hr Sodium Chloride (Normal Saline -) 1,000 mls @ 50 mls/hr IV ASDIR [facility] Last Admin: 10/21/19 09:23 Dose: 50 mls/hr Insulin Aspart (Novolog Vial Sliding Scale -) 1 vial SQ ACHS [facility]; Protocol Last Admin: 10/21/19 16:31 Dose: 2 units Levothyroxine Sodium (Synthroid -) 50 mcg PO 0700 [facility] Last Admin: 10/21/19 06:08 Dose: 50 mcg Methylprednisolone Sodium Succinate (Solu-Medrol -) 40 mg IVPUSH BID [facility] Mupirocin (Bactroban Ointment (For Decolonization) -) 1 applic NS BID [facility] Stop: 10/24/19 21:59 Last Admin: 10/21/19 09:25 Dose: 1 applic Pantoprazole Sodium (Protonix -) 40 mg PO DAILY [facility] Last Admin: 10/21/19 09:26 Dose: 40 mg Quetiapine Fumarate (Seroquel -) 200 mg PO BID [facility] Last Admin: 10/21/19 09:27 Dose: 200 mg Risperidone (Risperdal -) 0.5 mg PO BID [facility] Last Admin: 10/21/19 09:26 Dose: 0.5 mg Sertraline HCl (Zoloft -) 100 mg PO DAILY [facility] Last Admin: 10/21/19 09:28 Dose: 100 mg Vancomycin HCl (Vancomycin (Pre-Docked)) 1,000 mg IVPB DAILY@1700 [facility]; Protocol - Objective Vital Signs: Vital Signs Temperature 97.7 F 10/21/19 08:21 Pulse Rate 98 H 10/21/19 16:00 Respiratory Rate 24 H 10/21/19 16:00 Blood Pressure 132/75 10/21/19 16:00 O2 Sat by Pulse Oximetry (%) 97 10/21/19 08:46 Constitutional: Yes: No Distress HENT: Yes: Atraumatic Neck: Yes: Supple Cardiovascular: Yes: Regular Rate and Rhythm Respiratory: Yes: Rhonchi Gastrointestinal: Yes: Normal Bowel Sounds Extremities: Yes: WNL Edema: No Neurological: Yes: Alert, Oriented Labs: CBC, BMP 10/21/19 05:00 10/21/19 05:00 INR, PTT INR 1.37 (0.83-1.09) H 10/19/19 11:30 Problem List - Problems (1) PNA (pneumonia) Assessment/Plan: iv abx on [place] duo nebs cxs note Code(s): J18.9 - PNEUMONIA, UNSPECIFIED ORGANISM (2) Pulmonary fibrosis Assessment/Plan: on NC stable Code(s): J84.10 - PULMONARY FIBROSIS, UNSPECIFIED (3) UTI (urinary tract infection) Assessment/Plan: on iv abx Code(s): N39.0 - URINARY TRACT INFECTION, SITE NOT SPECIFIED (4) Anxiety and depression Code(s): F41.9 - ANXIETY DISORDER, UNSPECIFIED; F32.9 - MAJOR DEPRESSIVE DISORDER, SINGLE EPISODE, UNSPECIFIED (5) Hypothyroidism Code(s): E03.9 - HYPOTHYROIDISM, UNSPECIFIED (6) Parkinson disease Code(s): G20 - PARKINSON'S DISEASE (7) Seizure disorder Code(s): G40.909 - EPILEPSY, UNSP, NOT INTRACTABLE, WITHOUT STATUS EPILEPTICUS
[2019-10-21] MEDS: CHLORHEXIDINE GLUCONATE 4% CLEANSER FOR DECOLONIZATION TP SCH (21:13)
[2019-10-22] MEDS: ALBUTEROL SO4 2.5/IPRATROPIUM 0.5 INH SOL 3 ML VIAL.NEB. NEB SCH ×6 (00:06→21:07)
[2019-10-22] MEDS ORDERED: MEROPENEM 1 GM VIAL (RESTRICTED TO ID) IVPB ONE ×3 (01:30→16:56)
[2019-10-22] MEDS ORDERED: DEXTROSE 5%-WATER 100 ML IVPB ONE ×3 (01:31→16:56)
[2019-10-22] MEDS: MEROPENEM 1 GM in DEXTROSE 5%-WATER 100 ML IVPB SCH ×3 (01:32→17:11)
[2019-10-22] MEDS: INSULIN SLIDING SCALE (NOVOLOG) 1 VIAL SQ SCH ×4 (06:21→22:10)
[2019-10-22] MEDS: LEVOTHYROXINE NA 50 MCG TABLET (FP) PO SCH (06:22)
[2019-10-22 06:25] LABS: BASO % 0.2 % (0-2.0); HEMATOCRIT 29.7 % (32.4-45.2); HEMOGLOBIN 9.7 GM/dL (10.7-15.3); LYMPH % 4.8 % (8-40); MCH 27.2 pg (25.7-33.7); MCHC 32.5 g/dl (32.0-36.0); MEAN CELL VOLUME 83.7 fl (80-96); MEAN PLT VOLUME 8.1 fl (7.5-11.1); MONO % 2.5 % (3.8-10.2); NEUT % 92.5 % (42.8-82.8); PLATELET COUNT 414 K/MM3 (134-434); RBC 3.55 M/mm3 (3.60-5.2); RDW 15.8 % (11.6-15.6); WHITE BLOOD COUNT 25.1 K/mm3 (4.0-10.0)
[2019-10-22 06:41] LABS: BLOOD UREA NITROGEN 28.7 mg/dL (7-18); CALCIUM 8.9 mg/dL (8.5-10.1); CREATININE 0.8 mg/dL (0.55-1.3); MAGNESIUM 2.4 mg/dL (1.8-2.4); POTASSIUM 4.8 mmol/L (3.5-5.1)
[2019-10-22] MEDS ORDERED: PT OWN MED DRAWER 7, Y5N ONE ×2 (09:53→11:10)
[2019-10-22] MEDS: PANTOPRAZOLE 40 MG TABLET PO SCH (09:55)
[2019-10-22] MEDS: HEPARIN NA (PORCINE) 5,000 UNITS/ML 1ML VIAL SQ SCH ×2 (09:55→22:02)
[2019-10-22] MEDS: QUEtiapine FUMARATE 200 MG TABLET PO SCH ×2 (09:56→22:02)
[2019-10-22] MEDS: risperiDONE 0.5 MG TABLET PO SCH ×2 (09:56→22:02)
[2019-10-22] MEDS: methylPREDNISolone NA SUCC 40 MG/1 ML VIAL IVPUSH SCH (09:56)
[2019-10-22] MEDS: SERTRALINE HCL 50 MG TABLET (FP) PO SCH (09:56)
[2019-10-22 10:44] LABS: ANISOCYTOSIS 1+; MACROCYTOSIS 0; PLATELET ESTIMATE NORMAL
[2019-10-22] MEDS: MUPIROCIN 2% TOPICAL OINTMENT FOR DECOLONIZATION NS SCH ×2 (11:02→22:04)
[2019-10-22] MEDS ORDERED: ALBUTEROL SO4 0.083% IH SOL 2.5 MG/3 ML VIAL.NEB. NEB PRN (11:40)
--- NOTE | 2019-10-22 12:10 | PN ---
Teaching Attending Note Name of Resident: Sienna Zuniga ATTENDING PHYSICIAN STATEMENT I saw and evaluated the patient. I reviewed the resident's note and discussed the case with the resident. I agree with the resident's findings and plan as documented. SUBJECTIVE: Pt seen and examined in the ICU. Remains off BiPAP. Breathing continues to improve. No fevers recorded. OBJECTIVE: Vital Signs Period Temp Pulse Resp BP Sys/Riggins Pulse Ox Last 24 Hr 97.2 F-97.8 F 79-106 18-29 123-163/60-92 97-98 Intake & Output 10/19/19 10/20/19 10/21/19 10/22/19 23:59 23:59 23:59 23:59 Intake Total 50 1717.5 1000 400 Balance 50 1717.5 1000 400 Weight 41.64 kg 41.277 kg 43.091 kg 38.13 kg Gen: less tachypneic Heart: RRR Lung: decreased breath scattered rhonchi Abd: soft, nontender Ext: no edema CBC, BMP 10/22/19 05:05 10/22/19 05:05 Active Medications Acetaminophen (Tylenol -) 650 mg PO Q6H PRN PRN Reason: FEVER Last Admin: 10/21/19 05:52 Dose: 650 mg Albuterol Sulfate (Ventolin 0.083% Nebulizer Soln -) 1 amp NEB QID PRN PRN Reason: SHORTNESS OF BREATH Albuterol/Ipratropium (Duoneb -) 1 amp NEB RQ4H [facility] Last Admin: 10/22/19 04:00 Dose: Not Given Chlorhexidine Gluconate (Hibiclens For Decolonization -) 1 applic TP HS [facility] Last Admin: 10/21/19 21:13 Dose: 1 applic Heparin Sodium (Porcine) (Heparin -) 5,000 unit SQ BID [facility] Last Admin: 10/22/19 09:55 Dose: 5,000 unit Meropenem 1 gm/ Dextrose 100 mls @ 200 mls/hr IVPB Q8H-IV [facility] Last Admin: 10/22/19 09:55 Dose: 200 mls/hr Insulin Aspart (Novolog Vial Sliding Scale -) 1 vial SQ ACHS [facility]; Protocol Last Admin: 10/22/19 11:02 Dose: Not Given Levothyroxine Sodium (Synthroid -) 50 mcg PO 0700 [facility] Last Admin: 10/22/19 06:22 Dose: 50 mcg Methylprednisolone Sodium Succinate (Solu-Medrol -) 40 mg IVPUSH DAILY [facility] Mupirocin (Bactroban Ointment (For Decolonization) -) 1 applic NS BID [facility] Stop: 10/24/19 21:59 Last Admin: 10/22/19 11:02 Dose: 1 applic Pantoprazole Sodium (Protonix -) 40 mg PO DAILY [facility] Last Admin: 10/22/19 09:55 Dose: 40 mg Quetiapine Fumarate (Seroquel -) 200 mg PO BID [facility] Last Admin: 10/22/19 09:56 Dose: 200 mg Risperidone (Risperdal -) 0.5 mg PO BID [facility] Last Admin: 10/22/19 09:56 Dose: 0.5 mg Sertraline HCl (Zoloft -) 100 mg PO DAILY [facility] Last Admin: 10/22/19 09:56 Dose: 100 mg ASSESSMENT AND PLAN: Acute Hypoxic Respiratory Failure improving Pneumonia UTI Septic Shock resolving Acute COPD Exacerbation LV Diastolic Dysfunction Hypothyroidism Parkinsons - continue antibiotics - f/u cultures - taper medrol - inhaled bronchodilators - O2 to keep Spo2 >90% - BiPAP as needed to assist in work of breathing - aspiration precautions - DVT prophylaxis - can monitor on floor
--- NOTE | 2019-10-22 13:13 | PN ---
Physical Exam: SUBJECTIVE: Patient seen and examined. No acute events overnight. OBJECTIVE: Vital Signs Period Temp Pulse Resp BP Sys/Riggins Pulse Ox Last 24 Hr 97.0 F-97.8 F 79-106 18-29 123-163/60-92 95-98 GENERAL: Awake and alert, doing well on NC HEAD: Normal with no signs of trauma. EYES: PERRL, extraocular movements intact, sclera anicteric, conjunctiva clear. No ptosis. ENT: Ears normal, nares patent, oropharynx clear without exudates, moist mucous membranes. NECK: Trachea midline, full range of motion, supple. LUNGS: Mild coarse breath sounds BL, mild accessory muscle use, no wheezes, no crackles. On NC HEART: Regular rate and rhythm, S1, S2 without murmur, rub or gallop. ABDOMEN: Soft, nontender, nondistended, normoactive bowel sounds, no guarding, no rebound, no hepatosplenomegaly, no masses. EXTREMITIES: 2+ pulses, warm, well-perfused, no edema. NEUROLOGICAL: Oriented to name. Follows commands. SKIN: Warm, dry, normal turgor, no rashes or lesions noted Laboratory Results - last 24 hr CBC, BMP 10/22/19 05:05 10/22/19 05:05 Active Medications Acetaminophen (Tylenol -) 650 mg PO Q6H PRN PRN Reason: FEVER Last Admin: 10/21/19 05:52 Dose: 650 mg Albuterol Sulfate (Ventolin 0.083% Nebulizer Soln -) 1 amp NEB QID PRN PRN Reason: SHORTNESS OF BREATH Albuterol/Ipratropium (Duoneb -) 1 amp NEB RQ4H [facility] Last Admin: 10/22/19 12:13 Dose: 1 amp Chlorhexidine Gluconate (Hibiclens For Decolonization -) 1 applic TP HS [facility] Last Admin: 10/21/19 21:13 Dose: 1 applic Heparin Sodium (Porcine) (Heparin -) 5,000 unit SQ BID [facility] Last Admin: 10/22/19 09:55 Dose: 5,000 unit Meropenem 1 gm/ Dextrose 100 mls @ 200 mls/hr IVPB Q8H-IV [facility] Last Admin: 10/22/19 09:55 Dose: 200 mls/hr Insulin Aspart (Novolog Vial Sliding Scale -) 1 vial SQ ACHS [facility]; Protocol Last Admin: 10/22/19 11:02 Dose: Not Given Levothyroxine Sodium (Synthroid -) 50 mcg PO 0700 [facility] Last Admin: 10/22/19 06:22 Dose: 50 mcg Methylprednisolone Sodium Succinate (Solu-Medrol -) 40 mg IVPUSH DAILY [facility] Mupirocin (Bactroban Ointment (For Decolonization) -) 1 applic NS BID [facility] Stop: 10/24/19 21:59 Last Admin: 10/22/19 11:02 Dose: 1 applic Pantoprazole Sodium (Protonix -) 40 mg PO DAILY [facility] Last Admin: 10/22/19 09:55 Dose: 40 mg Quetiapine Fumarate (Seroquel -) 200 mg PO BID [facility] Last Admin: 10/22/19 09:56 Dose: 200 mg Risperidone (Risperdal -) 0.5 mg PO BID [facility] Last Admin: 10/22/19 09:56 Dose: 0.5 mg Sertraline HCl (Zoloft -) 100 mg PO DAILY [facility] Last Admin: 10/22/19 09:56 Dose: 100 mg ASSESSMENT/PLAN: Patient is an 89 year old female with PMH of hearing deficit, COPD, ESBL UTIs, HFpEF(LVEF 60-65%, 09/15/18), hypothyroidism, Parkinson's BIBA for complaint of worsening lethargy, SOB, cough with white sputum x3d. Admitted for sepsis 2/2 PNA vs COPDe and UTI. Admitted to ICU for close monitoring and possibly need for advanced cardiopulmonary support. Pt's sister stating that pt would want to avoid extraordinary measure but not completely sure about intubation. Neurology -AMS 2/2 severe sepsis, UTI vs PNA -Hx of Parkinsons -Can cont risperidone, seroquel, zoloft Cardiovascular -Hx of HFpEF, unlikely in exacerbation -BNP: 1113.8 -Echo (09/15/18): LVEF 60-65% -EKG (10/19/19): sinus tachy, QTc 401 -Monitor I's & O's, daily weights Pulmonary -?PNA vs COPD -CXR (10/19/19): coarse lung changes, superimposed congestive and possibly patchy infiltrates at the bases, tracheal deviation to the right -CXR (10/20/19): increased lung markins persist, look like chronic changes but an infiltrate on R cannot be totally excluded -Taper down IV solumedrol 40mg Q8H to daily -Duonebs QID standing and ventolin QID prn -Cont IV abx -Off BiPAP, doing well on NC Renal -WILBERT (Cr: 1.3-->1.1-->0.8) -? UTI (UA: 1+ blood, 3+ LE, 462 WBC) -D/c fluids -IV abx GI -NPO while on BiPAP -Consider IV protonix fo GI ppx if prolonged steroids ID -Sepsis likely 2/2 UTI vs PNA -ID following (Dr. Cortez) -Cont Meropenem 1gm Q8H (Day 3), will change as per ID -Urine cx: proteus species, pansiensitive except to nitro -Blood cx NGTD Heme -Hx of normocytic anemia -Monitor CBC DVT ppx -Heparin sq FEN -No standing fluids -Monitor BMP, replete prn -Dysphagia puree diet Dispo: -Pt stable for transfer to med-surg -Address GOC ("no extraordinary measures:, will need official documentation) Visit type - Emergency Visit Emergency Visit: No - New Patient This patient is new to me today: No - Critical Care Critical Care patient: Yes Total Critical Care Time (in minutes): 45 Critical Care Statement: The care of this patient involved high complexity decision making to prevent further life threatening deterioration of the patient's condition and/or to evaluate & treat vital organ system(s) failure or risk of failure. ATTENDING PHYSICIAN STATEMENT I saw and evaluated the patient. I reviewed the resident's note and discussed the case with the resident. I agree with the resident's findings and plan as documented. SUBJECTIVE: OBJECTIVE: ASSESSMENT AND PLAN:
--- NOTE | 2019-10-22 13:33 | PN ---
Progress Note, ALMOND ROASTER - Note Progress Note: Selected Entries 10/21/19 10/21/19 10/21/19 03:00 08:21 17:12 Supper Temperature 98.3 F 97.7 F 97.6 F 10/21/19 10/21/19 10/21/19 18:00 19:45 21:00 Supper 50% Temperature 97.3 F L 97.8 F 10/22/19 10/22/19 10/22/19 02:00 06:00 08:00 Supper Temperature 97.6 F 97.6 F 97.7 F 10/22/19 10/22/19 10/22/19 09:00 10:00 12:00 Supper 50% Temperature 97.2 F L 97.0 F L Tolerating puree/nectar. MBS when possible
--- NOTE | 2019-10-22 16:39 | PN ---
Progress Note, Physician History of Present Illness: on NC - Current Medication List Current Medications: Active Medications Acetaminophen (Tylenol -) 650 mg PO Q6H PRN PRN Reason: FEVER Last Admin: 10/21/19 05:52 Dose: 650 mg Albuterol Sulfate (Ventolin 0.083% Nebulizer Soln -) 1 amp NEB QID PRN PRN Reason: SHORTNESS OF BREATH Albuterol/Ipratropium (Duoneb -) 1 amp NEB RQ4H [facility] Last Admin: 10/22/19 12:13 Dose: 1 amp Chlorhexidine Gluconate (Hibiclens For Decolonization -) 1 applic TP HS [facility] Last Admin: 10/21/19 21:13 Dose: 1 applic Heparin Sodium (Porcine) (Heparin -) 5,000 unit SQ BID [facility] Last Admin: 10/22/19 09:55 Dose: 5,000 unit Meropenem 1 gm/ Dextrose 100 mls @ 200 mls/hr IVPB Q8H-IV [facility] Last Admin: 10/22/19 09:55 Dose: 200 mls/hr Insulin Aspart (Novolog Vial Sliding Scale -) 1 vial SQ ACHS [facility]; Protocol Last Admin: 10/22/19 11:02 Dose: Not Given Levothyroxine Sodium (Synthroid -) 50 mcg PO 0700 [facility] Last Admin: 10/22/19 06:22 Dose: 50 mcg Methylprednisolone Sodium Succinate (Solu-Medrol -) 40 mg IVPUSH DAILY [facility] Mupirocin (Bactroban Ointment (For Decolonization) -) 1 applic NS BID [facility] Stop: 10/24/19 21:59 Last Admin: 10/22/19 11:02 Dose: 1 applic Pantoprazole Sodium (Protonix -) 40 mg PO DAILY [facility] Last Admin: 10/22/19 09:55 Dose: 40 mg Quetiapine Fumarate (Seroquel -) 200 mg PO BID [facility] Last Admin: 10/22/19 09:56 Dose: 200 mg Risperidone (Risperdal -) 0.5 mg PO BID [facility] Last Admin: 10/22/19 09:56 Dose: 0.5 mg Sertraline HCl (Zoloft -) 100 mg PO DAILY [facility] Last Admin: 10/22/19 09:56 Dose: 100 mg - Objective Vital Signs: Vital Signs Temperature 97.2 F L 10/22/19 16:00 Pulse Rate 98 H 10/22/19 16:00 Respiratory Rate 24 H 10/22/19 16:00 Blood Pressure 139/73 10/22/19 16:00 O2 Sat by Pulse Oximetry (%) 95 10/22/19 12:13 Constitutional: Yes: No Distress HENT: Yes: Atraumatic Neck: Yes: Supple Cardiovascular: Yes: Regular Rate and Rhythm Respiratory: Yes: CTA Bilaterally Gastrointestinal: Yes: Normal Bowel Sounds Extremities: Yes: WNL Edema: No Neurological: Yes: Alert Labs: CBC, BMP 10/22/19 05:05 10/22/19 05:05 INR, PTT INR 1.37 (0.83-1.09) H 10/19/19 11:30 Problem List - Problems (1) PNA (pneumonia) Assessment/Plan: iv abx bipap duo nebs cxs sent Code(s): J18.9 - PNEUMONIA, UNSPECIFIED ORGANISM (2) Pulmonary fibrosis Assessment/Plan: on bipap for now iv steroid taper Code(s): J84.10 - PULMONARY FIBROSIS, UNSPECIFIED (3) UTI (urinary tract infection) Assessment/Plan: on iv abx Code(s): N39.0 - URINARY TRACT INFECTION, SITE NOT SPECIFIED (4) Anxiety and depression Code(s): F41.9 - ANXIETY DISORDER, UNSPECIFIED; F32.9 - MAJOR DEPRESSIVE DISORDER, SINGLE EPISODE, UNSPECIFIED (5) Hypothyroidism Assessment/Plan: on meds Code(s): E03.9 - HYPOTHYROIDISM, UNSPECIFIED (6) Parkinson disease Code(s): G20 - PARKINSON'S DISEASE (7) Seizure disorder Code(s): G40.909 - EPILEPSY, UNSP, NOT INTRACTABLE, WITHOUT STATUS EPILEPTICUS Assessment/Plan cc time 30 min
[2019-10-22] MEDS: CHLORHEXIDINE GLUCONATE 4% CLEANSER FOR DECOLONIZATION TP SCH (22:03)
[2019-10-23] MEDS: ALBUTEROL SO4 2.5/IPRATROPIUM 0.5 INH SOL 3 ML VIAL.NEB. NEB SCH ×6 (00:25→20:18)
[2019-10-23] MEDS ORDERED: DEXTROSE 5%-WATER 100 ML IVPB ONE ×2 (00:45→09:56)
[2019-10-23] MEDS ORDERED: MEROPENEM 1 GM VIAL (RESTRICTED TO ID) IVPB ONE ×2 (00:45→09:56)
[2019-10-23] MEDS: MEROPENEM 1 GM in DEXTROSE 5%-WATER 100 ML IVPB SCH ×2 (01:28→10:09)
[2019-10-23] MEDS: LEVOTHYROXINE NA 50 MCG TABLET (FP) PO SCH (06:07)
[2019-10-23] MEDS: INSULIN SLIDING SCALE (NOVOLOG) 1 VIAL SQ SCH ×4 (06:07→22:50)
[2019-10-23 06:55] LABS: BASO % 0.5 % (0-2.0); EOS % 0.7 % (0-4.5); HEMATOCRIT 33.5 % (32.4-45.2); HEMOGLOBIN 11.1 GM/dL (10.7-15.3); LYMPH % 9.2 % (8-40); MCH 27.7 pg (25.7-33.7); MCHC 33.2 g/dl (32.0-36.0); MEAN CELL VOLUME 83.6 fl (80-96); MEAN PLT VOLUME 7.7 fl (7.5-11.1); MONO % 3.4 % (3.8-10.2); NEUT % 86.2 % (42.8-82.8); PLATELET COUNT 475 K/MM3 (134-434); RBC 4.01 M/mm3 (3.60-5.2); WHITE BLOOD COUNT 25.3 K/mm3 (4.0-10.0)
[2019-10-23 07:27] LABS: ALBUMIN 2.4 g/dl (3.4-5.0); BILIRUBIN,TOTAL 0.4 mg/dL (0.2-1); BLOOD UREA NITROGEN 26.3 mg/dL (7-18); CALCIUM 9.3 mg/dL (8.5-10.1); CREATININE 0.8 mg/dL (0.55-1.3); MAGNESIUM 2.2 mg/dL (1.8-2.4); PHOSPHOROUS 2.6 mg/dL (2.5-4.9); POTASSIUM 4.4 mmol/L (3.5-5.1); TOT PROT 6.2 g/dl (6.4-8.2)
[2019-10-23] MEDS ORDERED: PT OWN MED DRAWER 7, Y5N ONE (09:57)
[2019-10-23] MEDS: MUPIROCIN 2% TOPICAL OINTMENT FOR DECOLONIZATION NS SCH ×2 (10:09→21:43)
[2019-10-23] MEDS: HEPARIN NA (PORCINE) 5,000 UNITS/ML 1ML VIAL SQ SCH ×2 (10:09→21:43)
[2019-10-23] MEDS: methylPREDNISolone NA SUCC 40 MG/1 ML VIAL IVPUSH SCH (10:09)
[2019-10-23] MEDS: PANTOPRAZOLE 40 MG TABLET PO SCH (10:09)
[2019-10-23] MEDS: ACETAMINOPHEN 325 MG TABLET (FP) PO PRN (10:09)
[2019-10-23] MEDS: risperiDONE 0.5 MG TABLET PO SCH ×2 (10:10→21:43)
[2019-10-23] MEDS: SERTRALINE HCL 50 MG TABLET (FP) PO SCH (10:10)
[2019-10-23] MEDS: QUEtiapine FUMARATE 200 MG TABLET PO SCH ×2 (10:11→21:44)
[2019-10-23 10:32] LABS: ANISOCYTOSIS 0; MACROCYTOSIS 0; PLATELET ESTIMATE NORMAL
--- NOTE | 2019-10-23 11:03 | PN ---
Progress Note, CERTIFIED PARALEGAL - Note Progress Note: Selected Entries 10/21/19 10/21/19 10/21/19 03:00 08:21 17:12 Supper Temperature 98.3 F 97.7 F 97.6 F 10/21/19 10/21/19 10/21/19 18:00 19:45 21:00 Supper 50% Temperature 97.3 F L 97.8 F 10/22/19 10/22/19 10/22/19 02:00 06:00 08:00 Supper Temperature 97.6 F 97.6 F 97.7 F 10/22/19 10/22/19 10/22/19 09:00 10:00 12:00 Supper 50% Temperature 97.2 F L 97.0 F L Selected Entries 10/22/19 10/22/19 10/22/19 02:00 06:00 08:00 Supper Temperature 97.6 F 97.6 F 97.7 F Pulse Rate Blood Pressure 10/22/19 10/22/19 10/22/19 09:00 10:00 12:00 Supper 50% Temperature 97.2 F L 97.0 F L Pulse Rate Blood Pressure 10/22/19 10/22/19 10/22/19 14:00 16:00 18:00 Supper Temperature 97.1 F L 97.2 F L 97.3 F L Pulse Rate Blood Pressure 10/22/19 10/23/19 10/23/19 20:38 00:36 02:06 Supper 50% Temperature 98.1 F Pulse Rate 81 101 H Blood Pressure 121/67 130/78 10/23/19 10/23/19 10/23/19 06:09 07:49 08:15 Supper Temperature 97.7 F Pulse Rate 106 H 106 H 118 H Blood Pressure 149/68 150/85 159/71 10/23/19 10:00 Supper Temperature 97.7 F Pulse Rate 115 H Blood Pressure 111/83 Laboratory Tests 10/20/19 10/21/19 10/22/19 05:30 05:00 05:05 WBC 35.6 H* 24.6 H 25.1 H 10/23/19 06:30 WBC 25.3 H Tolerating puree/nectar. MBS when possible Pt's sister brought in several hearing aids and battery packs, upon my request. Most of batteries were and with her permission, I disposed of them. I matched a left and right hearing aid, replaced the batteries, and now her hearing is functional for conversation. I asked the sister to take the rest of the hearing aids home and she placed them in her purse. She is leaVING [employer] IN PT'S ROOM FOR FUTURE NEED HERE. Pt has 2 hearing aids in her room, presently in her ears. Nursing made aware.
--- NOTE | 2019-10-23 11:41 | PN ---
Progress Note, Physician History of Present Illness: AWAKE, ALERT SUPINE IN BED HARD OF HEARING OFFERS NO COMPLAINTS BREATHING NON LABORED ON NASAL CANNULA TEMPS DOWN AFEBRILE WBC REMAINS ELEVATED BUT IMPROVED - Current Medication List Current Medications: Active Medications Acetaminophen (Tylenol -) 650 mg PO Q6H PRN PRN Reason: FEVER Last Admin: 10/23/19 10:09 Dose: 650 mg Albuterol Sulfate (Ventolin 0.083% Nebulizer Soln -) 1 amp NEB QID PRN PRN Reason: SHORTNESS OF BREATH Albuterol/Ipratropium (Duoneb -) 1 amp NEB RQ4H [facility] Last Admin: 10/23/19 07:20 Dose: 1 amp Chlorhexidine Gluconate (Hibiclens For Decolonization -) 1 applic TP HS [facility] Last Admin: 10/22/19 22:03 Dose: 1 applic Heparin Sodium (Porcine) (Heparin -) 5,000 unit SQ BID [facility] Last Admin: 10/23/19 10:09 Dose: 5,000 unit Meropenem 1 gm/ Dextrose 100 mls @ 200 mls/hr IVPB Q8H-IV [facility] Last Admin: 10/23/19 10:09 Dose: 200 mls/hr Insulin Aspart (Novolog Vial Sliding Scale -) 1 vial SQ ACHS [facility]; Protocol Last Admin: 10/23/19 06:07 Dose: Not Given Levothyroxine Sodium (Synthroid -) 50 mcg PO 0700 [facility] Last Admin: 10/23/19 06:07 Dose: 50 mcg Methylprednisolone Sodium Succinate (Solu-Medrol -) 40 mg IVPUSH DAILY [facility] Last Admin: 10/23/19 10:09 Dose: 40 mg Mupirocin (Bactroban Ointment (For Decolonization) -) 1 applic NS BID [facility] Stop: 10/24/19 21:59 Last Admin: 10/23/19 10:09 Dose: 1 applic Pantoprazole Sodium (Protonix -) 40 mg PO DAILY [facility] Last Admin: 10/23/19 10:09 Dose: 40 mg Quetiapine Fumarate (Seroquel -) 200 mg PO BID [facility] Last Admin: 10/23/19 10:11 Dose: 200 mg Risperidone (Risperdal -) 0.5 mg PO BID [facility] Last Admin: 10/23/19 10:10 Dose: 0.5 mg Sertraline HCl (Zoloft -) 100 mg PO DAILY [facility] Last Admin: 10/23/19 10:10 Dose: 100 mg - Objective Vital Signs: Vital Signs Temperature 97.7 F 10/23/19 10:00 Pulse Rate 115 H 10/23/19 10:00 Respiratory Rate 23 H 10/23/19 10:00 Blood Pressure 111/83 10/23/19 10:00 O2 Sat by Pulse Oximetry (%) 94 L 10/23/19 08:04 Constitutional: Yes: No Distress, Cachectic Eyes: Yes: Conjunctiva Clear Cardiovascular: Yes: Regular Rate and Rhythm, S1, S2 Respiratory: Yes: Rhonchi Gastrointestinal: Yes: Normal Bowel Sounds, Soft. No: Tenderness Edema: No Labs: CBC, BMP 10/23/19 06:30 10/23/19 06:30 INR, PTT INR 1.37 (0.83-1.09) H 10/19/19 11:30 Assessment/Plan SEPTIC SHOCK IMPROVED + PROTEUS UTI UTI R/O SEPSIS SECONDARY TO FOCUS EXACERBATION COPD ? PNEUMONIA FEVER/ LEUKOCYTOSIS IMPROVED PCN ALLERGY SUBSTITUTE CEFTRIAXONE 2GM Q24H
--- NOTE | 2019-10-23 11:56 | PN ---
Physical Exam: SUBJECTIVE: Patient seen and examined. No acute events overnight. OBJECTIVE: Vital Signs Period Temp Pulse Resp BP Sys/Riggins Pulse Ox Last 24 Hr 97.0 F-98.1 F 81-118 2-26 111-159/61-85 90-95 GENERAL: Awake and alert, doing well on NC HEAD: Normal with no signs of trauma. EYES: PERRL, extraocular movements intact, sclera anicteric, conjunctiva clear. No ptosis. ENT: Ears normal, nares patent, oropharynx clear without exudates, moist mucous membranes. NECK: Trachea midline, full range of motion, supple. LUNGS: Mild coarse breath sounds BL, mild accessory muscle use, no wheezes, no crackles. On NC HEART: Regular rate and rhythm, S1, S2 without murmur, rub or gallop. ABDOMEN: Soft, nontender, nondistended, normoactive bowel sounds, no guarding, no rebound, no hepatosplenomegaly, no masses. EXTREMITIES: 2+ pulses, warm, well-perfused, no edema. NEUROLOGICAL: Oriented to name. Follows commands. SKIN: Warm, dry, normal turgor, no rashes or lesions noted Laboratory Results - last 24 hr CBC, BMP 10/23/19 06:30 10/23/19 06:30 Active Medications Acetaminophen (Tylenol -) 650 mg PO Q6H PRN PRN Reason: FEVER Last Admin: 10/23/19 10:09 Dose: 650 mg Albuterol Sulfate (Ventolin 0.083% Nebulizer Soln -) 1 amp NEB QID PRN PRN Reason: SHORTNESS OF BREATH Albuterol/Ipratropium (Duoneb -) 1 amp NEB RQ4H [facility] Last Admin: 10/23/19 07:20 Dose: 1 amp Chlorhexidine Gluconate (Hibiclens For Decolonization -) 1 applic TP HS [facility] Last Admin: 10/22/19 22:03 Dose: 1 applic Heparin Sodium (Porcine) (Heparin -) 5,000 unit SQ BID [facility] Last Admin: 10/23/19 10:09 Dose: 5,000 unit Ceftriaxone Sodium 2 gm/ (Dextrose) 100 mls @ 100 mls/hr IVPB DAILY [facility]; Protocol Insulin Aspart (Novolog Vial Sliding Scale -) 1 vial SQ ACHS [facility]; Protocol Last Admin: 10/23/19 06:07 Dose: Not Given Levothyroxine Sodium (Synthroid -) 50 mcg PO 0700 [facility] Last Admin: 10/23/19 06:07 Dose: 50 mcg Methylprednisolone Sodium Succinate (Solu-Medrol -) 40 mg IVPUSH DAILY [facility] Last Admin: 10/23/19 10:09 Dose: 40 mg Mupirocin (Bactroban Ointment (For Decolonization) -) 1 applic NS BID [facility] Stop: 10/24/19 21:59 Last Admin: 10/23/19 10:09 Dose: 1 applic Pantoprazole Sodium (Protonix -) 40 mg PO DAILY [facility] Last Admin: 10/23/19 10:09 Dose: 40 mg Quetiapine Fumarate (Seroquel -) 200 mg PO BID [facility] Last Admin: 10/23/19 10:11 Dose: 200 mg Risperidone (Risperdal -) 0.5 mg PO BID [facility] Last Admin: 10/23/19 10:10 Dose: 0.5 mg Sertraline HCl (Zoloft -) 100 mg PO DAILY [facility] Last Admin: 10/23/19 10:10 Dose: 100 mg ASSESSMENT/PLAN: Patient is an 89 year old female with PMH of hearing deficit, COPD, ESBL UTIs, HFpEF(LVEF 60-65%, 09/15/18), hypothyroidism, Parkinson's BIBA for complaint of worsening lethargy, SOB, cough with white sputum x3d. Admitted for sepsis 2/2 PNA vs COPDe and UTI. Admitted to ICU for close monitoring and possibly need for advanced cardiopulmonary support. Pt's sister stating that pt would want to avoid extraordinary measure but not completely sure about intubation. Neurology -AMS 2/2 severe sepsis, UTI vs PNA -Hx of Parkinsons -Can cont risperidone, seroquel, zoloft Cardiovascular -Hx of HFpEF, unlikely in exacerbation -BNP: 1113.8 -Echo (09/15/18): LVEF 60-65% -EKG (10/19/19): sinus tachy, QTc 401 -Monitor I's & O's, daily weights Pulmonary -?PNA vs COPD -CXR (10/19/19): coarse lung changes, superimposed congestive and possibly patchy infiltrates at the bases, tracheal deviation to the right -CXR (10/20/19): increased lung markings persist, look like chronic changes but an infiltrate on R cannot be totally excluded -Taper down IV solumedrol 40mg Q8H to daily -Duonebs QID standing and ventolin QID prn -Cont IV abx -Off BiPAP, doing well on NC Renal -WILBERT (Cr: 1.3-->1.1-->0.8) -? UTI (UA: 1+ blood, 3+ LE, 462 WBC) -D/c fluids -IV abx GI -NPO while on BiPAP -Consider IV protonix fo GI ppx if prolonged steroids ID -Sepsis likely 2/2 UTI vs PNA -ID following (Dr. Cortez) -Change meropenem to 2gm ceftriaxone daily -Urine cx: proteus species, pansiensitive except to nitro -Blood cx NGTD Heme -Hx of normocytic anemia -Monitor CBC DVT ppx -Heparin sq FEN -No standing fluids -Monitor BMP, replete prn -Dysphagia puree diet Dispo: -Pt stable for transfer to med-surg -Address GOC ("no extraordinary measures:, will need official documentation) Visit type - Emergency Visit Emergency Visit: No - New Patient This patient is new to me today: No - Critical Care Critical Care patient: Yes Total Critical Care Time (in minutes): 45 Critical Care Statement: The care of this patient involved high complexity decision making to prevent further life threatening deterioration of the patient 's condition and/or to evaluate & treat vital organ system(s) failure or risk of failure. ATTENDING PHYSICIAN STATEMENT I saw and evaluated the patient. I reviewed the resident's note and discussed the case with the resident. I agree with the resident's findings and plan as documented. SUBJECTIVE: OBJECTIVE: ASSESSMENT AND PLAN:
--- NOTE | 2019-10-23 13:32 | PN ---
Teaching Attending Note Name of Resident: Sienna Zuniga ATTENDING PHYSICIAN STATEMENT I saw and evaluated the patient. I reviewed the resident's note and discussed the case with the resident. I agree with the resident's findings and plan as documented. SUBJECTIVE: Patient seen and examined in the ICU. Remains off BiPAP. Breathing continues to improve. No fevers recorded. OBJECTIVE: Intake & Output 10/20/19 10/21/19 10/22/19 10/23/19 23:59 23:59 23:59 23:59 Intake Total 1717.5 1000 1050 200 Balance 1717.5 1000 1050 200 Weight 91 lb 95 lb 84 lb 1 oz 80 lb 3.2 oz Last Vital Signs Temp Pulse Resp BP Pulse Ox 97.7 F 115 H 23 H 111/83 94 L 10/23/19 10:00 10/23/19 10:00 10/23/19 10:00 10/23/19 10:00 10/23/19 08:04 Active Medications Acetaminophen (Tylenol -) 650 mg PO Q6H PRN PRN Reason: FEVER Last Admin: 10/23/19 10:09 Dose: 650 mg Albuterol Sulfate (Ventolin 0.083% Nebulizer Soln -) 1 amp NEB QID PRN PRN Reason: SHORTNESS OF BREATH Albuterol/Ipratropium (Duoneb -) 1 amp NEB RQ4H [facility] Last Admin: 10/23/19 11:05 Dose: 1 amp Chlorhexidine Gluconate (Hibiclens For Decolonization -) 1 applic TP HS [facility] Last Admin: 10/22/19 22:03 Dose: 1 applic Heparin Sodium (Porcine) (Heparin -) 5,000 unit SQ BID [facility] Last Admin: 10/23/19 10:09 Dose: 5,000 unit Ceftriaxone Sodium 2 gm/ (Dextrose) 100 mls @ 100 mls/hr IVPB DAILY [facility]; Protocol Insulin Aspart (Novolog Vial Sliding Scale -) 1 vial SQ ACHS [facility]; Protocol Last Admin: 10/23/19 13:20 Dose: Not Given Levothyroxine Sodium (Synthroid -) 50 mcg PO 0700 [facility] Last Admin: 10/23/19 06:07 Dose: 50 mcg Methylprednisolone Sodium Succinate (Solu-Medrol -) 40 mg IVPUSH DAILY [facility] Last Admin: 10/23/19 10:09 Dose: 40 mg Mupirocin (Bactroban Ointment (For Decolonization) -) 1 applic NS BID [facility] Stop: 10/24/19 21:59 Last Admin: 10/23/19 10:09 Dose: 1 applic Pantoprazole Sodium (Protonix -) 40 mg PO DAILY [facility] Last Admin: 10/23/19 10:09 Dose: 40 mg Quetiapine Fumarate (Seroquel -) 200 mg PO BID [facility] Last Admin: 10/23/19 10:11 Dose: 200 mg Risperidone (Risperdal -) 0.5 mg PO BID [facility] Last Admin: 10/23/19 10:10 Dose: 0.5 mg Sertraline HCl (Zoloft -) 100 mg PO DAILY [facility] Last Admin: 10/23/19 10:10 Dose: 100 mg Gen: Awake and alert Heart: RRR Lung: decreased breath and scattered rhonchi Abd: soft, nontender Ext: no edema Laboratory Results - last 24 hr 10/22/19 10/22/19 10/23/19 16:54 22:07 05:45 WBC RBC Hgb Hct MCV MCH MCHC RDW Plt Count MPV Absolute Neuts (auto) Neutrophils % Neutrophils % (Manual) Band Neutrophils % Lymphocytes % Lymphocytes % (Manual) Monocytes % Monocytes % (Manual) Eosinophils % Eosinophils % (Manual) Basophils % Basophils % (Manual) Myelocytes % (Man) Promyelocytes % (Man) Blast Cells % (Manual) Nucleated RBC % Metamyelocytes Hypochromia Platelet Estimate Polychromasia Poikilocytosis Anisocytosis Microcytosis Macrocytosis Sodium Potassium Chloride Carbon Dioxide Anion Gap BUN Creatinine Est GFR (CKD-EPI)AfAm Est GFR (CKD-EPI)NonAf POC Glucometer 119 106 81 Random Glucose Calcium Phosphorus Magnesium Total Bilirubin AST ALT Alkaline Phosphatase Total Protein Albumin 10/23/19 10/23/19 10/23/19 06:30 06:30 12:06 WBC 25.3 H RBC 4.01 Hgb 11.1 Hct 33.5 MCV 83.6 MCH 27.7 MCHC 33.2 RDW 16.0 H Plt Count 475 H MPV 7.7 Absolute Neuts (auto) 21.8 H Neutrophils % 86.2 H Neutrophils % (Manual) 74.8 Band Neutrophils % 1.0 Lymphocytes % 9.2 D Lymphocytes % (Manual) 10.1 D Monocytes % 3.4 L Monocytes % (Manual) 3 L D Eosinophils % 0.7 D Eosinophils % (Manual) 0.0 Basophils % 0.5 Basophils % (Manual) 0.0 Myelocytes % (Man) 4 H D Promyelocytes % (Man) 0 Blast Cells % (Manual) 0 Nucleated RBC % 0 Metamyelocytes 2 D Hypochromia 0 Platelet Estimate Normal Polychromasia 0 Poikilocytosis 0 Anisocytosis 0 Microcytosis 0 Macrocytosis 0 Sodium 140 Potassium 4.4 Chloride 105 Carbon Dioxide 31 Anion Gap 4 L BUN 26.3 H Creatinine 0.8 Est GFR (CKD-EPI)AfAm 75.76 Est GFR (CKD-EPI)NonAf 65.36 POC Glucometer 120 Random Glucose 86 Calcium 9.3 Phosphorus 2.6 Magnesium 2.2 Total Bilirubin 0.4 AST 23 ALT 39 Alkaline Phosphatase 123 H Total Protein 6.2 L Albumin 2.4 L ASSESSMENT AND PLAN: Acute Hypoxic Respiratory Failure improving Pneumonia UTI Septic Shock resolving Acute COPD Exacerbation LV Diastolic Dysfunction Hypothyroidism Parkinsons - continue antibiotics - f/u final cultures - Medrol - inhaled bronchodilators - O2 to keep Spo2 >90% - BiPAP as needed to assist in work of breathing - aspiration precautions - DVT prophylaxis - can monitor on floor Dr Bryson
[2019-10-23] MEDS: CEFTRIAXONE 2 GM in DEXTROSE 5%-WATER 100 ML IVPB SCH (14:01)
--- NOTE | 2019-10-23 14:50 | PN ---
Progress Note, Physician History of Present Illness: stable - Current Medication List Current Medications: Active Medications Acetaminophen (Tylenol -) 650 mg PO Q6H PRN PRN Reason: FEVER Last Admin: 10/23/19 10:09 Dose: 650 mg Albuterol Sulfate (Ventolin 0.083% Nebulizer Soln -) 1 amp NEB QID PRN PRN Reason: SHORTNESS OF BREATH Albuterol/Ipratropium (Duoneb -) 1 amp NEB RQ4H [facility] Last Admin: 10/23/19 11:05 Dose: 1 amp Chlorhexidine Gluconate (Hibiclens For Decolonization -) 1 applic TP HS [facility] Last Admin: 10/22/19 22:03 Dose: 1 applic Heparin Sodium (Porcine) (Heparin -) 5,000 unit SQ BID [facility] Last Admin: 10/23/19 10:09 Dose: 5,000 unit Ceftriaxone Sodium 2 gm/ (Dextrose) 100 mls @ 100 mls/hr IVPB DAILY [facility]; Protocol Last Admin: 10/23/19 14:01 Dose: 100 mls/hr Insulin Aspart (Novolog Vial Sliding Scale -) 1 vial SQ ACHS [facility]; Protocol Last Admin: 10/23/19 13:20 Dose: Not Given Levothyroxine Sodium (Synthroid -) 50 mcg PO 0700 [facility] Last Admin: 10/23/19 06:07 Dose: 50 mcg Methylprednisolone Sodium Succinate (Solu-Medrol -) 40 mg IVPUSH DAILY [facility] Last Admin: 10/23/19 10:09 Dose: 40 mg Mupirocin (Bactroban Ointment (For Decolonization) -) 1 applic NS BID [facility] Stop: 10/24/19 21:59 Last Admin: 10/23/19 10:09 Dose: 1 applic Pantoprazole Sodium (Protonix -) 40 mg PO DAILY [facility] Last Admin: 10/23/19 10:09 Dose: 40 mg Quetiapine Fumarate (Seroquel -) 200 mg PO BID [facility] Last Admin: 10/23/19 10:11 Dose: 200 mg Risperidone (Risperdal -) 0.5 mg PO BID [facility] Last Admin: 10/23/19 10:10 Dose: 0.5 mg Sertraline HCl (Zoloft -) 100 mg PO DAILY [facility] Last Admin: 10/23/19 10:10 Dose: 100 mg - Objective Vital Signs: Vital Signs Temperature 97.7 F 10/23/19 10:00 Pulse Rate 106 H 10/23/19 14:39 Respiratory Rate 22 H 10/23/19 14:39 Blood Pressure 119/52 L 10/23/19 14:39 O2 Sat by Pulse Oximetry (%) 94 L 10/23/19 08:04 Constitutional: Yes: No Distress HENT: Yes: Atraumatic Neck: Yes: Supple Cardiovascular: Yes: Regular Rate and Rhythm Respiratory: Yes: Rhonchi Gastrointestinal: Yes: Normal Bowel Sounds Extremities: Yes: WNL Edema: No Peripheral Pulses WNL: Yes Labs: CBC, BMP 10/23/19 06:30 10/23/19 06:30 INR, PTT INR 1.37 (0.83-1.09) H 10/19/19 11:30 Problem List - Problems (1) PNA (pneumonia) Assessment/Plan: iv abx duo nebs cxs noted Code(s): J18.9 - PNEUMONIA, UNSPECIFIED ORGANISM (2) Pulmonary fibrosis Assessment/Plan: on bipap for now iv steroid taper Code(s): J84.10 - PULMONARY FIBROSIS, UNSPECIFIED (3) UTI (urinary tract infection) Assessment/Plan: on iv abx Code(s): N39.0 - URINARY TRACT INFECTION, SITE NOT SPECIFIED (4) Anxiety and depression Code(s): F41.9 - ANXIETY DISORDER, UNSPECIFIED; F32.9 - MAJOR DEPRESSIVE DISORDER, SINGLE EPISODE, UNSPECIFIED (5) Hypothyroidism Assessment/Plan: on meds Code(s): E03.9 - HYPOTHYROIDISM, UNSPECIFIED (6) Parkinson disease Code(s): G20 - PARKINSON'S DISEASE (7) Seizure disorder Code(s): G40.909 - EPILEPSY, UNSP, NOT INTRACTABLE, WITHOUT STATUS EPILEPTICUS Assessment/Plan cc time 30 min
[2019-10-23] MEDS: CHLORHEXIDINE GLUCONATE 4% CLEANSER FOR DECOLONIZATION TP SCH (21:44)
[2019-10-24] MEDS: ALBUTEROL SO4 2.5/IPRATROPIUM 0.5 INH SOL 3 ML VIAL.NEB. NEB SCH ×5 (00:19→16:39)
[2019-10-24 06:21] LABS: HEMATOCRIT 31.7 % (32.4-45.2); HEMOGLOBIN 10.5 GM/dL (10.7-15.3); MCH 27.6 pg (25.7-33.7); MEAN CELL VOLUME 83.9 fl (80-96); PLATELET COUNT 412 K/MM3 (134-434); RBC 3.78 M/mm3 (3.60-5.2); RDW 16.1 % (11.6-15.6); WHITE BLOOD COUNT 22.7 K/mm3 (4.0-10.0)
[2019-10-24] MEDS: INSULIN SLIDING SCALE (NOVOLOG) 1 VIAL SQ SCH ×4 (07:30→21:05)
[2019-10-24] MEDS: LEVOTHYROXINE NA 50 MCG TABLET (FP) PO SCH (07:46)
--- NOTE | 2019-10-24 07:50 | PN ---
Progress Note (short form) - Note Progress Note: Pulm/CCM SUBJECTIVE: Patient seen and examined in the ICU. -cont to improve, no distress -waiting for floor bed OBJECTIVE: Vital Signs Temp 97.8 F 10/24/19 06:00 Pulse 91 H 10/24/19 06:00 Resp 22 H 10/24/19 06:00 BP 126/72 10/24/19 06:00 Pulse Ox 91 L 10/24/19 00:28 Intake & Output 10/23/19 10/23/19 10/24/19 11:59 23:59 11:59 Intake Total 200 200 Balance 200 200 Weight 36.378 kg Intake: IVPB 100 200 Oral 100 Other: Voiding Method Diaper Diaper # Unmeasured Voids Void 1 1 1 Bowel Movement No No Weight Measurement Method Built in Bedscale Active Medications Acetaminophen (Tylenol -) 650 mg PO Q6H PRN PRN Reason: FEVER Last Admin: 10/23/19 10:09 Dose: 650 mg Albuterol Sulfate (Ventolin 0.083% Nebulizer Soln -) 1 amp NEB QID PRN PRN Reason: SHORTNESS OF BREATH Albuterol/Ipratropium (Duoneb -) 1 amp NEB RQ4H [facility] Last Admin: 10/24/19 04:13 Dose: Not Given Chlorhexidine Gluconate (Hibiclens For Decolonization -) 1 applic TP HS [facility] Last Admin: 10/23/19 21:44 Dose: 1 applic Heparin Sodium (Porcine) (Heparin -) 5,000 unit SQ BID [facility] Last Admin: 10/23/19 21:43 Dose: 5,000 unit Ceftriaxone Sodium 2 gm/ (Dextrose) 100 mls @ 100 mls/hr IVPB DAILY [facility]; Protocol Last Admin: 10/23/19 14:01 Dose: 100 mls/hr Insulin Aspart (Novolog Vial Sliding Scale -) 1 vial SQ ACHS [facility]; Protocol Last Admin: 10/23/19 22:50 Dose: Not Given Levothyroxine Sodium (Synthroid -) 50 mcg PO 0700 [facility] Last Admin: 10/24/19 07:46 Dose: 50 mcg Methylprednisolone Sodium Succinate (Solu-Medrol -) 40 mg IVPUSH DAILY [facility] Last Admin: 10/23/19 10:09 Dose: 40 mg Mupirocin (Bactroban Ointment (For Decolonization) -) 1 applic NS BID [facility] Stop: 10/24/19 21:59 Last Admin: 10/23/19 21:43 Dose: 1 applic Pantoprazole Sodium (Protonix -) 40 mg PO DAILY [facility] Last Admin: 10/23/19 10:09 Dose: 40 mg Quetiapine Fumarate (Seroquel -) 200 mg PO BID [facility] Last Admin: 10/23/19 21:44 Dose: 200 mg Risperidone (Risperdal -) 0.5 mg PO BID [facility] Last Admin: 10/23/19 21:43 Dose: 0.5 mg Sertraline HCl (Zoloft -) 100 mg PO DAILY [facility] Last Admin: 10/23/19 10:10 Dose: 100 mg Gen: Awake and alert Heart: RRR Lung: no distress, no wheezes Abd: soft, nontender Ext: no edema Laboratory Results - last 24 hr 10/22/19 10/22/19 10/23/19 16:54 22:07 05:45 WBC RBC Hgb Hct MCV MCH MCHC RDW Plt Count MPV Absolute Neuts (auto) Neutrophils % Neutrophils % (Manual) Band Neutrophils % Lymphocytes % Lymphocytes % (Manual) Monocytes % Monocytes % (Manual) Eosinophils % Eosinophils % (Manual) Basophils % Basophils % (Manual) Myelocytes % (Man) Promyelocytes % (Man) Blast Cells % (Manual) Nucleated RBC % Metamyelocytes Hypochromia Platelet Estimate Polychromasia Poikilocytosis Anisocytosis Microcytosis Macrocytosis Sodium Potassium Chloride Carbon Dioxide Anion Gap BUN Creatinine Est GFR (CKD-EPI)AfAm Est GFR (CKD-EPI)NonAf POC Glucometer 119 106 81 Random Glucose Calcium Phosphorus Magnesium Total Bilirubin AST ALT Alkaline Phosphatase Total Protein Albumin 10/23/19 10/23/19 10/23/19 06:30 06:30 12:06 WBC 25.3 H RBC 4.01 Hgb 11.1 Hct 33.5 MCV 83.6 MCH 27.7 MCHC 33.2 RDW 16.0 H Plt Count 475 H MPV 7.7 Absolute Neuts (auto) 21.8 H Neutrophils % 86.2 H Neutrophils % (Manual) 74.8 Band Neutrophils % 1.0 Lymphocytes % 9.2 D Lymphocytes % (Manual) 10.1 D Monocytes % 3.4 L Monocytes % (Manual) 3 L D Eosinophils % 0.7 D Eosinophils % (Manual) 0.0 Basophils % 0.5 Basophils % (Manual) 0.0 Myelocytes % (Man) 4 H D Promyelocytes % (Man) 0 Blast Cells % (Manual) 0 Nucleated RBC % 0 Metamyelocytes 2 D Hypochromia 0 Platelet Estimate Normal Polychromasia 0 Poikilocytosis 0 Anisocytosis 0 Microcytosis 0 Macrocytosis 0 Sodium 140 Potassium 4.4 Chloride 105 Carbon Dioxide 31 Anion Gap 4 L BUN 26.3 H Creatinine 0.8 Est GFR (CKD-EPI)AfAm 75.76 Est GFR (CKD-EPI)NonAf 65.36 POC Glucometer 120 Random Glucose 86 Calcium 9.3 Phosphorus 2.6 Magnesium 2.2 Total Bilirubin 0.4 AST 23 ALT 39 Alkaline Phosphatase 123 H Total Protein 6.2 L Albumin 2.4 L Microbiology 10/19/19 11:50 Blood - Peripheral Venous Blood Culture - Preliminary NO GROWTH OBTAINED AFTER 96 HOURS, INCUBATION TO CONTINUE FOR 1 DAYS. 10/19/19 11:30 Blood - Peripheral Venous Blood Culture - Preliminary NO GROWTH OBTAINED AFTER 96 HOURS, INCUBATION TO CONTINUE FOR 1 DAYS. 10/19/19 11:58 Urine - Urine Clean Catch Urine Culture - Final Proteus Mirabilis ASSESSMENT AND PLAN: Acute Hypoxic Respiratory Failure improving Pneumonia UTI Septic Shock resolving Acute COPD Exacerbation LV Diastolic Dysfunction Hypothyroidism Parkinsons - continue antibiotics - f/u final cultures - Medrol, transition to pred taper - inhaled bronchodilators - O2 to keep Spo2 >90% - BiPAP PRN - aspiration precautions - DVT prophylaxis - [facility] floor [facility] [id number]
[2019-10-24 08:10] LABS: ALBUMIN 2.3 g/dl (3.4-5.0); BILIRUBIN,TOTAL 0.3 mg/dL (0.2-1); BLOOD UREA NITROGEN 24.5 mg/dL (7-18); CALCIUM 9.3 mg/dL (8.5-10.1); CREATININE 0.7 mg/dL (0.55-1.3); MAGNESIUM 2.7 mg/dL (1.8-2.4); PHOSPHOROUS 3.3 mg/dL (2.5-4.9); POTASSIUM 4.5 mmol/L (3.5-5.1); TOT PROT 5.6 g/dl (6.4-8.2)
[2019-10-24] MEDS ORDERED: DEXTROSE 5%-WATER 100 ML IVPB ONE (09:18)
[2019-10-24] MEDS: PANTOPRAZOLE 40 MG TABLET PO SCH (09:31)
[2019-10-24] MEDS: SERTRALINE HCL 50 MG TABLET (FP) PO SCH (09:31)
[2019-10-24] MEDS: MUPIROCIN 2% TOPICAL OINTMENT FOR DECOLONIZATION NS SCH (09:32)
[2019-10-24] MEDS: CEFTRIAXONE 2 GM in DEXTROSE 5%-WATER 100 ML IVPB SCH (09:32)
[2019-10-24] MEDS: HEPARIN NA (PORCINE) 5,000 UNITS/ML 1ML VIAL SQ SCH ×2 (09:33→21:04)
[2019-10-24] MEDS: methylPREDNISolone NA SUCC 40 MG/1 ML VIAL IVPUSH SCH (09:40)
[2019-10-24] MEDS: QUEtiapine FUMARATE 200 MG TABLET PO SCH ×2 (09:48→21:05)
[2019-10-24] MEDS ORDERED: PT OWN MED DRAWER 7, Y5N ONE (09:56)
[2019-10-24] MEDS: risperiDONE 0.5 MG TABLET PO SCH ×2 (09:57→21:04)
--- NOTE | 2019-10-24 17:50 | PN ---
Progress Note, Physician - Current Medication List Current Medications: Active Medications Acetaminophen (Tylenol -) 650 mg PO Q6H PRN PRN Reason: FEVER Last Admin: 10/23/19 10:09 Dose: 650 mg Albuterol Sulfate (Ventolin 0.083% Nebulizer Soln -) 1 amp NEB QID PRN PRN Reason: SHORTNESS OF BREATH Albuterol/Ipratropium (Duoneb -) 1 amp NEB RQ4H [facility] Last Admin: 10/24/19 16:39 Dose: Not Given Chlorhexidine Gluconate (Hibiclens For Decolonization -) 1 applic TP HS [facility] Last Admin: 10/23/19 21:44 Dose: 1 applic Heparin Sodium (Porcine) (Heparin -) 5,000 unit SQ BID [facility] Last Admin: 10/24/19 09:33 Dose: 5,000 unit Ceftriaxone Sodium 2 gm/ (Dextrose) 100 mls @ 100 mls/hr IVPB DAILY [facility]; Protocol Last Admin: 10/24/19 09:32 Dose: 100 mls/hr Insulin Aspart (Novolog Vial Sliding Scale -) 1 vial SQ ACHS [facility]; Protocol Last Admin: 10/24/19 12:00 Dose: Not Given Levothyroxine Sodium (Synthroid -) 50 mcg PO 0700 [facility] Last Admin: 10/24/19 07:46 Dose: 50 mcg Methylprednisolone Sodium Succinate (Solu-Medrol -) 40 mg IVPUSH DAILY [facility] Last Admin: 10/24/19 09:40 Dose: 40 mg Mupirocin (Bactroban Ointment (For Decolonization) -) 1 applic NS BID [facility] Stop: 10/24/19 21:59 Last Admin: 10/24/19 09:32 Dose: 1 applic Pantoprazole Sodium (Protonix -) 40 mg PO DAILY [facility] Last Admin: 10/24/19 09:31 Dose: 40 mg Quetiapine Fumarate (Seroquel -) 200 mg PO BID [facility] Last Admin: 10/24/19 09:48 Dose: 200 mg Risperidone (Risperdal -) 0.5 mg PO BID [facility] Last Admin: 10/24/19 09:57 Dose: 0.5 mg Sertraline HCl (Zoloft -) 100 mg PO DAILY [facility] Last Admin: 10/24/19 09:31 Dose: 100 mg - Objective Vital Signs: Vital Signs Temperature 97.7 F 10/24/19 10:00 Pulse Rate 115 H 10/24/19 10:00 Respiratory Rate 24 H 10/24/19 10:00 Blood Pressure 115/70 10/24/19 10:00 O2 Sat by Pulse Oximetry (%) 94 L 10/24/19 10:00 Constitutional: Yes: No Distress HENT: Yes: Atraumatic Neck: Yes: Supple Cardiovascular: Yes: Regular Rate and Rhythm Respiratory: Yes: CTA Bilaterally Gastrointestinal: Yes: Normal Bowel Sounds Extremities: Yes: WNL Edema: No Peripheral Pulses WNL: Yes Neurological: Yes: Alert Labs: CBC, BMP 10/24/19 05:10 10/24/19 05:10 INR, PTT INR 1.37 (0.83-1.09) H 10/19/19 11:30 Problem List - Problems (1) PNA (pneumonia) Assessment/Plan: iv abx duo nebs cxs noted Code(s): J18.9 - PNEUMONIA, UNSPECIFIED ORGANISM (2) Pulmonary fibrosis Assessment/Plan: on bipap for now iv steroid taper Code(s): J84.10 - PULMONARY FIBROSIS, UNSPECIFIED (3) UTI (urinary tract infection) Assessment/Plan: on iv abx Code(s): N39.0 - URINARY TRACT INFECTION, SITE NOT SPECIFIED (4) Anxiety and depression Code(s): F41.9 - ANXIETY DISORDER, UNSPECIFIED; F32.9 - MAJOR DEPRESSIVE DISORDER, SINGLE EPISODE, UNSPECIFIED (5) Hypothyroidism Assessment/Plan: on meds Code(s): E03.9 - HYPOTHYROIDISM, UNSPECIFIED (6) Parkinson disease Code(s): G20 - PARKINSON'S DISEASE (7) Seizure disorder Code(s): G40.909 - EPILEPSY, UNSP, NOT INTRACTABLE, WITHOUT STATUS EPILEPTICUS
[2019-10-24] MEDS ORDERED: INSULIN (NOVOLOG) ASPART 100 UNITS/ML 10ML VIAL ONE ×2 (18:02→20:52)
[2019-10-24] MEDS ORDERED: ACETAMINOPHEN 325 MG TABLET (FP) PO PRN (20:58)
[2019-10-24] MEDS ORDERED: ALBUTEROL SO4 0.083% IH SOL 2.5 MG/3 ML VIAL.NEB. NEB PRN (20:58)
[2019-10-24] MEDS ORDERED: MUPIROCIN 2% TOPICAL OINTMENT FOR DECOLONIZATION NS SCH (22:00)
[2019-10-24] MEDS ORDERED: CHLORHEXIDINE GLUCONATE 4% CLEANSER FOR DECOLONIZATION TP SCH (22:00)
[2019-10-25] MEDS: ALBUTEROL SO4 2.5/IPRATROPIUM 0.5 INH SOL 3 ML VIAL.NEB. NEB SCH ×6 (00:53→20:28)
[2019-10-25] MEDS: INSULIN SLIDING SCALE (NOVOLOG) 1 VIAL SQ SCH ×4 (06:01→21:09)
[2019-10-25] MEDS: LEVOTHYROXINE NA 50 MCG TABLET (FP) PO SCH (06:01)
[2019-10-25] MEDS ORDERED: DEXTROSE 5%-WATER 100 ML IVPB ONE (09:33)
[2019-10-25] MEDS ORDERED: PT OWN MED DRAWER 7, Y5N ONE (09:36)
[2019-10-25] MEDS: PANTOPRAZOLE 40 MG TABLET PO SCH (09:37)
[2019-10-25] MEDS: methylPREDNISolone NA SUCC 40 MG/1 ML VIAL IVPUSH SCH (09:37)
[2019-10-25] MEDS: QUEtiapine FUMARATE 200 MG TABLET PO SCH ×2 (09:37→21:10)
[2019-10-25] MEDS: CEFTRIAXONE 2 GM in DEXTROSE 5%-WATER 100 ML IVPB SCH (09:37)
[2019-10-25] MEDS: risperiDONE 0.5 MG TABLET PO SCH ×2 (09:37→21:09)
[2019-10-25] MEDS: SERTRALINE HCL 50 MG TABLET (FP) PO SCH (09:37)
[2019-10-25] MEDS: HEPARIN NA (PORCINE) 5,000 UNITS/ML 1ML VIAL SQ SCH ×2 (09:37→21:10)
--- NOTE | 2019-10-25 09:43 | PN ---
Progress Note (short form) - Note Progress Note: PULMONARY Somnolent but arousable. No overnight events. Vital Signs Period Temp Pulse Resp BP Sys/Riggins Pulse Ox Last 24 Hr 97.3 F-98.4 F 93-116 18-25 112-137/50-107 92-95 Gen: NAD at rest Heart: RRR Lung: distant breath sounds Abd: soft, nontender Ext: no edema CBC, BMP 10/24/19 05:10 10/24/19 05:10 Active Medications Acetaminophen (Tylenol -) 650 mg PO Q6H PRN PRN Reason: FEVER Albuterol Sulfate (Ventolin 0.083% Nebulizer Soln -) 1 amp NEB QID PRN PRN Reason: SHORTNESS OF BREATH Albuterol/Ipratropium (Duoneb -) 1 amp NEB RQ4H [facility] Last Admin: 10/25/19 07:30 Dose: 1 amp Heparin Sodium (Porcine) (Heparin -) 5,000 unit SQ BID [facility] Last Admin: 10/25/19 09:37 Dose: 5,000 unit Ceftriaxone Sodium 2 gm/ (Dextrose) 100 mls @ 100 mls/hr IVPB DAILY [facility]; Protocol Last Admin: 10/25/19 09:37 Dose: 100 mls/hr Insulin Aspart (Novolog Vial Sliding Scale -) 1 vial SQ ACHS [facility]; Protocol Last Admin: 10/25/19 06:01 Dose: Not Given Levothyroxine Sodium (Synthroid -) 50 mcg PO 0700 [facility] Last Admin: 10/25/19 06:01 Dose: 50 mcg Methylprednisolone Sodium Succinate (Solu-Medrol -) 40 mg IVPUSH DAILY [facility] Last Admin: 10/25/19 09:37 Dose: 40 mg Pantoprazole Sodium (Protonix -) 40 mg PO DAILY [facility] Last Admin: 10/25/19 09:37 Dose: 40 mg Quetiapine Fumarate (Seroquel -) 200 mg PO BID [facility] Last Admin: 10/25/19 09:37 Dose: 200 mg Risperidone (Risperdal -) 0.5 mg PO BID [facility] Last Admin: 10/25/19 09:37 Dose: 0.5 mg Sertraline HCl (Zoloft -) 100 mg PO DAILY [facility] Last Admin: 10/25/19 09:37 Dose: 100 mg A/P Acute Hypoxic Respiratory Failure improving Pneumonia UTI Septic Shock resolving Acute COPD Exacerbation LV Diastolic Dysfunction Hypothyroidism Parkinsons - continue antibiotics - taper medrol - inhaled bronchodilators - O2 to keep Spo2 >90% - BiPAP as needed to assist in work of breathing - aspiration precautions - DVT prophylaxis
[2019-10-25] MEDS ORDERED: INSULIN (NOVOLOG) ASPART 100 UNITS/ML 10ML VIAL ONE (12:03)
[2019-10-25] MEDS ORDERED: ONDANSETRON 4 MG TABLET PO ONE (12:16)
--- NOTE | 2019-10-25 22:42 | PN ---
Progress Note, Physician History of Present Illness: Pt lethargic - Current Medication List Current Medications: Active Medications Acetaminophen (Tylenol -) 650 mg PO Q6H PRN PRN Reason: FEVER Albuterol Sulfate (Ventolin 0.083% Nebulizer Soln -) 1 amp NEB QID PRN PRN Reason: SHORTNESS OF BREATH Albuterol/Ipratropium (Duoneb -) 1 amp NEB RQ4H [facility] Last Admin: 10/25/19 20:28 Dose: 1 amp Heparin Sodium (Porcine) (Heparin -) 5,000 unit SQ BID [facility] Last Admin: 10/25/19 21:10 Dose: 5,000 unit Ceftriaxone Sodium 2 gm/ (Dextrose) 100 mls @ 100 mls/hr IVPB DAILY [facility]; Protocol Last Admin: 10/25/19 09:37 Dose: 100 mls/hr Insulin Aspart (Novolog Vial Sliding Scale -) 1 vial SQ ACHS [facility]; Protocol Last Admin: 10/25/19 21:09 Dose: Not Given Levothyroxine Sodium (Synthroid -) 50 mcg PO 0700 [facility] Last Admin: 10/25/19 06:01 Dose: 50 mcg Methylprednisolone Sodium Succinate (Solu-Medrol -) 40 mg IVPUSH DAILY [facility] Last Admin: 10/25/19 09:37 Dose: 40 mg Pantoprazole Sodium (Protonix -) 40 mg PO DAILY [facility] Last Admin: 10/25/19 09:37 Dose: 40 mg Quetiapine Fumarate (Seroquel -) 200 mg PO BID [facility] Last Admin: 10/25/19 21:10 Dose: 200 mg Risperidone (Risperdal -) 0.5 mg PO BID [facility] Last Admin: 10/25/19 21:09 Dose: 0.5 mg Sertraline HCl (Zoloft -) 100 mg PO DAILY [facility] Last Admin: 10/25/19 09:37 Dose: 100 mg - Objective Vital Signs: Vital Signs Temperature 98.4 F 10/25/19 19:49 Pulse Rate 94 H 10/25/19 19:49 Respiratory Rate 20 10/25/19 21:00 Blood Pressure 147/82 10/25/19 19:49 O2 Sat by Pulse Oximetry (%) 95 10/25/19 21:00 Neck: Yes: WNL, Supple Cardiovascular: Yes: WNL, Regular Rate and Rhythm Respiratory: Yes: Diminished Gastrointestinal: Yes: WNL, Normal Bowel Sounds, Soft Labs: CBC, BMP 10/24/19 05:10 10/24/19 05:10 INR, PTT INR 1.37 (0.83-1.09) H 10/19/19 11:30 Problem List - Problems (1) Lethargy Assessment/Plan: ?Considering decreasing seroquel ?Metabolic encephalopathy Code(s): R53.83 - OTHER FATIGUE (2) COPD exacerbation Assessment/Plan: Cont nebulizers Code(s): J44.1 - CHRONIC OBSTRUCTIVE PULMONARY DISEASE W (ACUTE) EXACERBATION (3) PNA (pneumonia) Assessment/Plan: Cont IV antibxs Code(s): J18.9 - PNEUMONIA, UNSPECIFIED ORGANISM (4) Anemia Code(s): D64.9 - ANEMIA, UNSPECIFIED Qualifiers: Other causes of anemia: other cause, not classified Qualified Code(s): D64.89 - Other specified anemias (5) Hypothyroidism Code(s): E03.9 - HYPOTHYROIDISM, UNSPECIFIED
[2019-10-26] MEDS: ALBUTEROL SO4 2.5/IPRATROPIUM 0.5 INH SOL 3 ML VIAL.NEB. NEB SCH ×6 (00:05→20:10)
[2019-10-26] MEDS: LEVOTHYROXINE NA 50 MCG TABLET (FP) PO SCH (06:08)
[2019-10-26] MEDS: INSULIN SLIDING SCALE (NOVOLOG) 1 VIAL SQ SCH ×4 (06:08→21:52)
--- NOTE | 2019-10-26 09:04 | PN ---
Progress Note, Physician History of Present Illness: STABLE - Current Medication List Current Medications: Active Medications Acetaminophen (Tylenol -) 650 mg PO Q6H PRN PRN Reason: FEVER Albuterol Sulfate (Ventolin 0.083% Nebulizer Soln -) 1 amp NEB QID PRN PRN Reason: SHORTNESS OF BREATH Albuterol/Ipratropium (Duoneb -) 1 amp NEB RQ4H [facility] Last Admin: 10/26/19 07:50 Dose: 1 amp Heparin Sodium (Porcine) (Heparin -) 5,000 unit SQ BID [facility] Last Admin: 10/25/19 21:10 Dose: 5,000 unit Ceftriaxone Sodium 2 gm/ (Dextrose) 100 mls @ 100 mls/hr IVPB DAILY [facility]; Protocol Last Admin: 10/25/19 09:37 Dose: 100 mls/hr Insulin Aspart (Novolog Vial Sliding Scale -) 1 vial SQ ACHS [facility]; Protocol Last Admin: 10/26/19 06:08 Dose: Not Given Levothyroxine Sodium (Synthroid -) 50 mcg PO 0700 [facility] Last Admin: 10/26/19 06:08 Dose: 50 mcg Methylprednisolone Sodium Succinate (Solu-Medrol -) 40 mg IVPUSH DAILY [facility] Last Admin: 10/25/19 09:37 Dose: 40 mg Pantoprazole Sodium (Protonix -) 40 mg PO DAILY [facility] Last Admin: 10/25/19 09:37 Dose: 40 mg Quetiapine Fumarate (Seroquel -) 200 mg PO BID [facility] Last Admin: 10/25/19 21:10 Dose: 200 mg Risperidone (Risperdal -) 0.5 mg PO BID [facility] Last Admin: 10/25/19 21:09 Dose: 0.5 mg Sertraline HCl (Zoloft -) 100 mg PO DAILY [facility] Last Admin: 10/25/19 09:37 Dose: 100 mg - Objective Vital Signs: Vital Signs Temperature 97.4 F L 10/26/19 05:00 Pulse Rate 102 H 10/26/19 05:00 Respiratory Rate 20 10/26/19 05:00 Blood Pressure 129/76 10/26/19 05:00 O2 Sat by Pulse Oximetry (%) 95 10/25/19 21:00 Constitutional: Yes: No Distress HENT: Yes: Atraumatic Neck: Yes: Supple Cardiovascular: Yes: Regular Rate and Rhythm Respiratory: Yes: CTA Bilaterally Gastrointestinal: Yes: Normal Bowel Sounds Extremities: Yes: WNL Neurological: Yes: Alert Labs: CBC, BMP 10/24/19 05:10 10/24/19 05:10 INR, PTT INR 1.37 (0.83-1.09) H 10/19/19 11:30 Problem List - Problems (1) PNA (pneumonia) Assessment/Plan: po abx duo nebs Code(s): J18.9 - PNEUMONIA, UNSPECIFIED ORGANISM (2) Pulmonary fibrosis Assessment/Plan: on bipap for now iv steroid taper Code(s): J84.10 - PULMONARY FIBROSIS, UNSPECIFIED (3) UTI (urinary tract infection) Assessment/Plan: on po abx from today Code(s): N39.0 - URINARY TRACT INFECTION, SITE NOT SPECIFIED (4) Anxiety and depression Code(s): F41.9 - ANXIETY DISORDER, UNSPECIFIED; F32.9 - MAJOR DEPRESSIVE DISORDER, SINGLE EPISODE, UNSPECIFIED (5) Hypothyroidism Assessment/Plan: on meds Code(s): E03.9 - HYPOTHYROIDISM, UNSPECIFIED (6) Parkinson disease Code(s): G20 - PARKINSON'S DISEASE (7) Seizure disorder Code(s): G40.909 - EPILEPSY, UNSP, NOT INTRACTABLE, WITHOUT STATUS EPILEPTICUS
--- NOTE | 2019-10-26 09:53 | PN ---
Progress Note, PROTOTYPE TECHNICIAN - Note Progress Note: Selected Entries 10/25/19 10/25/19 10/25/19 01:00 05:25 09:29 Breakfast Lunch Supper Temperature 97.3 F L 97.6 F 97.7 F 10/25/19 10/25/19 10/25/19 10:00 15:00 15:34 Breakfast 50% Lunch 50% Supper Temperature 98.1 F 10/25/19 10/25/19 10/25/19 17:20 19:49 20:00 Breakfast Lunch Supper 0 Temperature 98.1 F 98.4 F 10/26/19 05:00 Breakfast Lunch Supper Temperature 97.4 F L Laboratory Tests 10/22/19 10/23/19 10/24/19 05:05 06:30 05:10 WBC 25.1 H 25.3 H 22.7 H Now on 8w. Tolerating puree/nectar thick liquids. For MBS to upgrade diet, when indicated.
--- NOTE | 2019-10-26 10:08 | PN ---
Progress Note (short form) - Note Progress Note: PULMONARY Denies shortness of breath, cough. No fevers. Vital Signs Period Temp Pulse Resp BP Sys/Riggins Pulse Ox Last 24 Hr 97.4 F-98.4 F 73-102 18-20 100-147/55-82 95 Gen: NAD at rest Heart: RRR Lung: distant breath sounds Abd: soft, nontender Ext: no edema CBC, BMP 10/24/19 05:10 10/24/19 05:10 Active Medications Acetaminophen (Tylenol -) 650 mg PO Q6H PRN PRN Reason: FEVER Albuterol Sulfate (Ventolin 0.083% Nebulizer Soln -) 1 amp NEB QID PRN PRN Reason: SHORTNESS OF BREATH Albuterol/Ipratropium (Duoneb -) 1 amp NEB RQ4H [facility] Last Admin: 10/26/19 07:50 Dose: 1 amp Heparin Sodium (Porcine) (Heparin -) 5,000 unit SQ BID [facility] Last Admin: 10/25/19 21:10 Dose: 5,000 unit Ceftriaxone Sodium 2 gm/ (Dextrose) 100 mls @ 100 mls/hr IVPB DAILY [facility]; Protocol Last Admin: 10/25/19 09:37 Dose: 100 mls/hr Insulin Aspart (Novolog Vial Sliding Scale -) 1 vial SQ ACHS [facility]; Protocol Last Admin: 10/26/19 06:08 Dose: Not Given Levothyroxine Sodium (Synthroid -) 50 mcg PO 0700 [facility] Last Admin: 10/26/19 06:08 Dose: 50 mcg Methylprednisolone Sodium Succinate (Solu-Medrol -) 40 mg IVPUSH DAILY [facility] Last Admin: 10/25/19 09:37 Dose: 40 mg Pantoprazole Sodium (Protonix -) 40 mg PO DAILY [facility] Last Admin: 10/25/19 09:37 Dose: 40 mg Quetiapine Fumarate (Seroquel -) 200 mg PO BID [facility] Last Admin: 10/25/19 21:10 Dose: 200 mg Risperidone (Risperdal -) 0.5 mg PO BID [facility] Last Admin: 10/25/19 21:09 Dose: 0.5 mg Sertraline HCl (Zoloft -) 100 mg PO DAILY [facility] Last Admin: 10/25/19 09:37 Dose: 100 mg A/P Acute Hypoxic Respiratory Failure improving Pneumonia UTI Septic Shock resolving Acute COPD Exacerbation LV Diastolic Dysfunction Hypothyroidism Parkinsons - complete antibiotics - can change steroids to PO prednisone and taper as outpt - inhaled bronchodilators - O2 to keep Spo2 >90% - aspiration precautions - DVT prophylaxis
[2019-10-26] MEDS ORDERED: DEXTROSE 5%-WATER 100 ML IVPB ONE (10:27)
[2019-10-26] MEDS: PANTOPRAZOLE 40 MG TABLET PO SCH (10:35)
[2019-10-26] MEDS: SERTRALINE HCL 50 MG TABLET (FP) PO SCH (10:35)
[2019-10-26] MEDS: risperiDONE 0.5 MG TABLET PO SCH ×2 (10:35→21:51)
[2019-10-26] MEDS: HEPARIN NA (PORCINE) 5,000 UNITS/ML 1ML VIAL SQ SCH ×2 (10:36→21:51)
[2019-10-26] MEDS: CEFTRIAXONE 2 GM in DEXTROSE 5%-WATER 100 ML IVPB SCH (10:36)
[2019-10-26] MEDS: QUEtiapine FUMARATE 200 MG TABLET PO SCH ×2 (10:37→21:52)
[2019-10-26] MEDS: methylPREDNISolone NA SUCC 40 MG/1 ML VIAL IVPUSH SCH (16:17)
[2019-10-26] MEDS ORDERED: PT OWN MED DRAWER 7, Y5N ONE (21:27)
[2019-10-26] MEDS: CEFUROXIME AXETIL 250 MG TABLET PO SCH (21:51)
[2019-10-27] MEDS: ALBUTEROL SO4 2.5/IPRATROPIUM 0.5 INH SOL 3 ML VIAL.NEB. NEB SCH ×2 (00:12→04:00)
[2019-10-27] MEDS: LEVOTHYROXINE NA 50 MCG TABLET (FP) PO SCH (06:08)
[2019-10-27] MEDS: INSULIN SLIDING SCALE (NOVOLOG) 1 VIAL SQ SCH (06:08)
[2019-10-27] MEDS ORDERED: predniSONE 10 MG TABLET (UD) PO SCH (10:00)
--- NOTE | 2019-10-27 10:06 | PN ---
Progress Note (short form) - Note Progress Note: PULMONARY Denies shortness of breath, cough. No fevers. Vital Signs Period Temp Pulse Resp BP Sys/Riggins Pulse Ox Last 24 Hr 97.6 F-97.8 F 85-112 20-20 110-128/63-73 98 Gen: NAD at rest Heart: RRR Lung: distant breath sounds Abd: soft, nontender Ext: no edema CBC, BMP 10/24/19 05:10 10/24/19 05:10 Active Medications Acetaminophen (Tylenol -) 650 mg PO Q6H PRN PRN Reason: FEVER Albuterol Sulfate (Ventolin 0.083% Nebulizer Soln -) 1 amp NEB QID PRN PRN Reason: SHORTNESS OF BREATH Albuterol/Ipratropium (Duoneb -) 1 amp NEB RQ4H [facility] Last Admin: 10/27/19 04:00 Dose: Not Given Cefuroxime Axetil (Ceftin -) 250 mg PO BID [facility] Last Admin: 10/26/19 21:51 Dose: 250 mg Heparin Sodium (Porcine) (Heparin -) 5,000 unit SQ BID [facility] Last Admin: 10/26/19 21:51 Dose: 5,000 unit Insulin Aspart (Novolog Vial Sliding Scale -) 1 vial SQ [facility]; Protocol Last Admin: 10/27/19 06:08 Dose: Not Given Levothyroxine Sodium (Synthroid -) 50 mcg PO 0700 [facility] Last Admin: 10/27/19 06:08 Dose: 50 mcg Pantoprazole Sodium (Protonix -) 40 mg PO DAILY [facility] Last Admin: 10/26/19 10:35 Dose: 40 mg Prednisone (Deltasone -) 30 mg PO DAILY [facility] Quetiapine Fumarate (Seroquel -) 200 mg PO BID [facility] Last Admin: 10/26/19 21:52 Dose: 200 mg Risperidone (Risperdal -) 0.5 mg PO BID [facility] Last Admin: 10/26/19 21:51 Dose: 0.5 mg Sertraline HCl (Zoloft -) 100 mg PO DAILY [facility] Last Admin: 10/26/19 10:35 Dose: 100 mg A/P Acute Hypoxic Respiratory Failure improving Pneumonia UTI Septic Shock resolving Acute COPD Exacerbation LV Diastolic Dysfunction Hypothyroidism Parkinsons - complete antibiotics - prednisone taper - inhaled bronchodilators - O2 to keep Spo2 >90% - aspiration precautions - DVT prophylaxis
[2019-10-27] MEDS ORDERED: PT OWN MED DRAWER 7, Y5N ONE (10:41)
[2019-10-27] MEDS: SERTRALINE HCL 50 MG TABLET (FP) PO SCH (10:48)
[2019-10-27] MEDS: CEFUROXIME AXETIL 250 MG TABLET PO SCH (10:48)
[2019-10-27] MEDS: risperiDONE 0.5 MG TABLET PO SCH (10:49)
[2019-10-27] MEDS: HEPARIN NA (PORCINE) 5,000 UNITS/ML 1ML VIAL SQ SCH (10:49)
[2019-10-27] MEDS: PANTOPRAZOLE 40 MG TABLET PO SCH (10:49)
[2019-10-27] MEDS: QUEtiapine FUMARATE 200 MG TABLET PO SCH (10:49)
[2019-10-27 12:01] VITALS: BP 145/69; PULSE 56; TEMP 97.9
--- NOTE | 2019-10-27 16:52 | DS ---
Physical Examination Vital Signs: Vital Signs Temperature 97.9 F 10/27/19 08:00 Pulse Rate 56 L 10/27/19 08:00 Respiratory Rate 20 10/27/19 09:00 Blood Pressure 145/69 10/27/19 08:00 O2 Sat by Pulse Oximetry (%) 98 10/27/19 09:00 Constitutional: Yes: No Distress HENT: Yes: Atraumatic Neck: Yes: Supple Cardiovascular: Yes: Regular Rate and Rhythm Respiratory: Yes: CTA Bilaterally Gastrointestinal: Yes: Normal Bowel Sounds Extremities: Yes: WNL Neurological: Yes: Alert, Oriented Labs: CBC, BMP 10/24/19 05:10 10/24/19 05:10 Discharge Summary Problems reviewed: Yes Reason For Visit: UTI,FIBROSIS OF LUNG,PNEUMONIA Condition: Stable - Instructions Referrals: Rivera Montes De Oca MD [Primary Care Provider] - Disposition: HOME - Home Medications Comprehensive Discharge Medication List: Ambulatory Orders Levothyroxine [Synthroid -] 50 mcg PO DAILY 08/18/15 Risperidone [Risperdal -] 0.5 mg PO BID 05/09/18 Sertraline HCl [Zoloft] 100 mg PO DAILY 05/23/18 Pantoprazole Sodium [Protonix -] 40 mg PO DAILY #7 tablet.ec 09/17/18 Buspirone HCl [Buspar -] 5 mg PO DAILY 04/05/19 Quetiapine Fumarate [Seroquel -] 200 mg PO BID 04/05/19 Ferrous Sulfate [Iron] 325 mg PO BID 07/21/19 Vancomycin Oral Solution 125 mg PO Q6HPO #100 ml 07/23/19 Cefuroxime Axetil [Ceftin -] 250 mg PO BID #10 tablet 10/26/19 predniSONE [Deltasone -] 30 mg PO DAILY #30 tablet 10/26/19
== END 2019-10-27 11:38 | disposition home or self-care (01) | DRG 871 ==
LOC: JER 10:53 → JERBED 13:14 → JICU 18:00 → J8W 10-24 20:24
PROVIDERS: ADMIT Internal Medicine; ATTEND Internal Medicine
PROC: 5A0945Z Assistance with Respiratory Ventilation, 24-96 Consecutive Hours (ICD-10-PCS; principal; 2019-10-19)
PROC: 05HM33Z Insertion of Infusion Device into Right Internal Jugular Vein, Percutaneous Approach (ICD-10-PCS; 2019-10-19)
DX: A41.9 Sepsis, unspecified organism (principal); J18.9 Pneumonia, unspecified organism; J96.01 Acute respiratory failure with hypoxia; R65.21 Severe sepsis with septic shock; N39.0 Urinary tract infection, site not specified; J44.1 Chronic obstructive pulmonary disease with (acute) exacerbation; N17.9 Acute kidney failure, unspecified; R64 Cachexia; Z68.1 Body mass index [BMI] 19.9 or less, adult; I10 Essential (primary) hypertension; E78.5 Hyperlipidemia, unspecified; D64.9 Anemia, unspecified; E03.9 Hypothyroidism, unspecified; G20 Parkinson's disease; D72.829 Elevated white blood cell count, unspecified
CPT/HCPCS: 36415; 36600; 71045-TC-FY; 76604; 80048; 80053; 81003; 82550; 82803; 82962; 83605; 83735; 83880; 84100; 84484; 85025; 85027; 85610; 85730; 87040; 87086; 87186; 87804; 93005; 93010; 93308; 94640; 94660; 97116-GP; 97161-GP; 99285-25; J0131; J1644; J7030